=== PATIENT | female | born 1930 | race Two or more races ===

== ENCOUNTER 2016-09-23 18:28 | Inpatient (IN) | payer MEDICARE, BC ==
--- NOTE | 2016-09-23 18:57 | CT ---
PROCEDURE: CT HEAD WITHOUT CONTRAST. HISTORY: Code Stroke COMPARISON: None available. TECHNIQUE: Axial computed tomography images were obtained through the head/brain without intravenous contrast. Radiation dose: Total exam DLP = 791.90 mGy-cm. FINDINGS: HEMORRHAGE: No intracranial hemorrhage. BRAIN: Diffuse atrophy with prominence of the ventricles and sulci noted. No mass effect or edema. Intracranial atherosclerosis. Scattered periventricular and subcortical white matter hypodensities, which are nonspecific, but often seen with chronic microvascular ischemic disease. VENTRICLES: No hydrocephalus. CALVARIUM: No acute fracture. Osseous demineralization. PARANASAL SINUSES: Unremarkable as visualized. No significant inflammatory changes. MASTOID AIR CELLS: Unremarkable as visualized. No inflammatory changes. OTHER FINDINGS: None. IMPRESSION: Generalized atrophy. Nonspecific white matter changes. Please note that MRI with diffusion imaging is more sensitive in the detection of acute ischemic event. Findings discussed with JOHN Escalona on 09/23/16 at 6:52 p.m.
[2016-09-23 19:27] LABS: BASO % 0.4 % (0.0-2.0); HEMATOCRIT 49.1 % (34.0-47.0); LYMPH # 0.9 K/uL (1.0-4.3); LYMPH % 10.8 % (20.0-40.0); MEAN CORPUSCULAR HEMOGLOBIN 30.1 pg (27.0-31.0); MEAN PLATELET VOLUME 8.7 fL (7.2-11.7); MONO # 0.7 K/uL (0.0-0.8); MONO % 8.4 % (0.0-10.0); NRBC % 0.1 % (0.0-2.0); RED CELL DISTRIBUTION WIDTH 14.5 % (11.5-14.5); WHITE BLOOD COUNT 8.7 K/uL (4.8-10.8)
[2016-09-23 19:28] LABS: MEAN CELL VOLUME 91.1 fL (81.0-99.0)
[2016-09-23 19:34] LABS: POTASSIUM 3.7 mmol/L (3.6-5.2)
[2016-09-23 19:36] LABS: ALB/GLOB RATIO 1.1 (1.0-2.1); BILIRUBIN,TOTAL 0.3 mg/dL (0.2-1.3)
[2016-09-23 19:37] LABS: CALCIUM 8.2 mg/dl (8.6-10.4)
[2016-09-23 19:51] LABS: TROPONIN I 0.24 ng/mL (0.00-0.120)
[2016-09-23 20:25] LABS: ABG MECHANICAL RATE 14; ATERIAL BLOOD GAS PEEP 5; DRAW SITE RRA
[2016-09-23 20:28] LABS: BLOOD GAS HEMOGLOBIN 15.7 g/dL (11.7-17.4); CARBOXYHEMOGLOBIN 2.6 % (0.5-1.5); DRAW SITE RRA; HHB -0.1 % (0.0-5.0); METHEMOGLOBIN 1.4 % (0.0-3.0); VENOUS BLOOD GAS BASE EXCESS 0.1 mmol/L (0.0-2.0); VENOUS BLOOD GAS PCO2 74 mmHg (40-60); VENOUS BLOOD HGB O2 SAT 96.1 % (95.0-98.0); VENOUS BLOOD PH 7.22 (7.32-7.43)
[2016-09-23] MEDS ORDERED: Succinylcholine Chloride 20 mg/ml Syr (5 ml) IV STA (20:29)
[2016-09-23] MEDS ORDERED: Sodium Chloride 0.9% 1,000 ML IV ONE (20:44)
[2016-09-23] MEDS ORDERED: Sodium Chloride 0.9% 1,000 ML ONE ×2 (20:45→22:09)
--- NOTE | 2016-09-23 21:34 | C.PDOC ---
Time Seen by Provider: 09/23/16 18:36 Chief Complaint (Nursing): Altered Mental Status History Per: EMS History/Exam Limitations: Clinical Condition Onset/Duration Of Symptoms: Unknown (today) Onset Of Symptoms: Cannot Confirm Onset Current Symptoms Are (Timing): Worse Usual Baseline: Alert Oriented Exacerbating Factor(s): Unknown Use Of Anticoag/Antiplatelets: Unknown Severity: Severe Additional History Per: Prior Records Associated Symptoms: Confused, Falling (?), Unable To: (talk) Past Medical History Reviewed: Historical Data, Nursing Documentation, Vital Signs Vital Signs: Last Vital Signs Temp 100.2 F H 09/23/16 20:05 Pulse 95 H 09/23/16 20:42 Resp 14 09/23/16 20:42 BP 91/52 L 09/23/16 20:42 Pulse Ox 100 09/23/16 20:42 - Medical History PMH: COPD, HTN, Hypothyroidism Family History: States: Unknown Family Hx - Social History Hx Tobacco Use: Yes Hx Alcohol Use: No (UNOBTAINABLE) Hx Substance Use: No (UNOBTAINABLE) Review Of Systems Review Of Systems: ROS cannot be obtained secondary to pt's inabilty to answer questions. Physical Exam - Physical Exam Appears: Toxic, In Acute Distress Skin: Normal Color, Warm, Dry Head: Atraumatic Eye(s): bilateral: PERRL Neck: Normal ROM, Supple Cardiovascular: Rhythm Regular Respiratory: No Accessory Muscle Use, Other (poor respiratory effort) Gastrointestinal/Abdominal: Soft Extremity: Normal ROM Neurological/Psych: No Response To Commands, Inappropriate Response To Command, Other (Moving all extremities) Pain Response: Withdraws With Pain ED Course And Treatment - Laboratory Results Result Diagrams: 09/23/16 19:22 09/23/16 19:22 Lab Interpretation: Abnormal Interpretation Of Abnormal: Hypercarbia ECG: Interpreted By Me, Viewed By Me ECG Rhythm: Sinus Tachycardia, Nonspecific Changes ECG Interpretation: Abnormal Interpretation Of ECG: PACs O2 Sat by Pulse Oximetry: 100 Pulse Ox Interpretation: Normal - Radiology CXR: Interpreted by Me, Viewed By Me CXR Interpretation: Yes: Other (rotated. ETT in place.) Progress Note: Pt improved and started waking up after intubation, so sedation was started. [facility] came to visit in the ED and case was d/w them. - Physician Consult Information Physician Contacted: Germain Quick (ICU) Outcome Of Conversation: He accepted pt to ICU. Endotracheal Intubation - Endotracheal Intubation Intubated With ETT Size: 7 Blade Type Used: Curved Indication: Respiratory Failure Intubated: Orally Pre-Intubation Airway Assessment: Ventilated And Oxygenated Paralyzed With: Succinylcholine Post-Intubation Assessment: ETT Secured AT (cm): (20), Breath Sounds Equal Bilat , Placement Confirmed Via CXR, Color Change W/End Tidal CO2 Detector, Oxygen Saturation: (100) Progress - Interventions Interventions:: Observation, Intravenous fluid, Oxygen - Data Reviewed Data Reviewed: Lab, Diagnostic imaging, EKG, Old records - Patient Status Patient status: Critical - Critical Care Citical Care: Excluding Proc Time Critical Care Time: 60 minutes - Continuity of Care Discussed patient case with:: Family-HIPPA compliant, On-call PMD-pt unassigned Discussed pt. case with senior staff consultant/specialty: Pulmonary/Crit. Care - Patient Plan Patient Plan: Admission, ICU Disposition Discussed With : Fred Thomas Comment: He accepted pt on his service. Doctor Will See Patient In The: Hospital Counseled Patient/Family Regarding: Studies Performed, Diagnosis - Disposition Disposition: HOSPITALIZED Disposition Time: 21:00 Condition: CRITICAL - Clinical Impression Clinical Impression: Respiratory failure, CO2 narcosis
[2016-09-23 21:55] LABS: RBC URINE 7 /hpf (0-3); URINE BACTERIA RARE (<OCC); URINE BILIRUBIN NEGATIVE (NEGATIVE); URINE BLOOD 3+ (NEGATIVE); URINE COLOR Yellow (YELLOW); URINE GLUCOSE (UA) NORMAL (Normal); URINE KETONE NEGATIVE (NEGATIVE); URINE LEUKOCYTE ESTERASE NEG Leu/uL (Negative); URINE PROTEIN 3+ mg/dL (NEGATIVE); URINE UROBILINOGEN NORMAL mg/dL (0.2-1.0); WBC URINE 7 /hpf (0-5)
[2016-09-23] MEDS ORDERED: Sodium Chloride 0.9% 1,000 ML IV SCH (22:00)
--- NOTE | 2016-09-23 22:07 | CP.PCM.CON ---
History of Present Illness - History of Present Illness History of Present Illness: 86yo F. PMHx Smoker, most likely with COPD. p/w AMS secondary to hypercarbia. Intubated in ED with rapid resolution of mental status. Sedated for control while on vent. Review of Systems - Review of Systems Systems not reviewed;Unavailable: Intubated Past Patient History - Past Social History Smoking Status: Unknown If Ever Smoked - CARDIAC Hx Hypertension: Yes - PULMONARY Hx Chronic Obstructive Pulmonary Disease (COPD): Yes - ENDOCRINE/METABOLIC Hx Hypothyroidism: Yes - PSYCHIATRIC Hx Substance Use: No (UNOBTAINABLE) - SURGICAL HISTORY Hx Surgeries: No (UNOBTAINABLE) Meds Allergies/Adverse Reactions: Allergies Allergy/AdvReac Type Severity Reaction Status Date / Time Unobtainable Allergy Verified 09/23/16 18:38 - Medications Medications: Current Medications Albuterol/Ipratropium (Duoneb 3 Mg/0.5 Mg (3 Ml) Ud) 3 ml INH RQ4 [facility] Enoxaparin Sodium (Lovenox) 40 mg SC DAILY [facility] Propofol (Diprivan) 100 mls @ 1.973 mls/hr IV .Q24H PRN; Protocol; 5 MCG/KG/MIN PRN Reason: TITRATE PER MD ORDER Last Titration: 09/23/16 20:49 Dose: 5 mcg/kg/min Sodium Chloride (Sodium Chloride 0.9%) 1,000 mls @ 100 mls/hr IV .Q10H [facility] Ceftriaxone Sodium 2 gm/ (Sodium Chloride) 100 mls @ 100 mls/hr IVPB DAILY [facility] Azithromycin 500 mg/ Sodium (Chloride) 250 mls @ 250 mls/hr IVPB Q24H [facility] Methylprednisolone (Solu-Medrol) 40 mg IV Q8 [facility] Rosuvastatin Calcium (Crestor) 10 mg PO HS [facility] Physical Exam - Head Exam Head Exam: ATRAUMATIC, NORMAL INSPECTION, NORMOCEPHALIC - Eye Exam Eye Exam: EOMI, Normal appearance, PERRL - ENT Exam ENT Exam: Mucous Membranes Moist, Normal Exam - Respiratory Exam Respiratory Exam: Clear to Auscultation Bilateral, NORMAL BREATHING PATTERN - Cardiovascular Exam Cardiovascular Exam: REGULAR RHYTHM - GI/Abdominal Exam GI & Abdominal Exam: Normal Bowel Sounds, Soft. absent: Tenderness - Neurological Exam Additional comments: sedated Results - Vital Signs Recent Vital Signs: Last Vital Signs Temp 100.2 F H 09/23/16 20:05 Pulse 95 H 09/23/16 20:42 Resp 14 09/23/16 20:42 BP 91/52 L 09/23/16 20:42 Pulse Ox 100 09/23/16 21:38 - Labs Result Diagrams: 09/23/16 19:22 09/23/16 19:22 Labs: Laboratory Results - last 24 hr 09/23/16 09/23/16 09/23/16 18:32 19:22 19:25 WBC 8.7 RBC 5.39 H Hgb 16.2 H Hct 49.1 H MCV 91.1 D MCH 30.1 MCHC 33.0 RDW 14.5 Plt Count 224 MPV 8.7 Neut % (Auto) 80.4 H Lymph % (Auto) 10.8 L [place] % (Auto) 8.4 Eos % (Auto) 0.0 Baso % (Auto) 0.4 Neut # 7.0 Lymph # 0.9 L [place] # 0.7 Eos # 0.0 Baso # 0.0 PT 11.2 INR 1.0 APTT 35 H Puncture Site pCO2 pO2 HCO3 ABG pH ABG Total CO2 ABG O2 Saturation ABG Base Excess ABG Carboxyhemoglobin POC ABG HHb (Measured) ABG Methemoglobin Fish Test ABG Potassium VBG pH VBG pCO2 VBG HCO3 VBG O2 Sat (Calc) VBG Base Excess VBG Hgb O2 Saturation A-a O2 Difference Respiratory Index Hemoglobin Glucose Lactate Mechanical Rate FiO2 Tidal Volume PEEP Crit Value Called To Crit Value Called By Crit Value Read Back Blood Gas Notified Time Sodium 140 Potassium 3.7 Chloride 91 L Carbon Dioxide 36 H Anion Gap 17 BUN 22 H Creatinine 1.2 Est GFR ( Amer) 52 Est GFR (Non-Af Amer) 43 POC Glucose (mg/dL) 100 Random Glucose 134 H Hemoglobin A1c 5.9 Calcium 8.2 L Total Bilirubin 0.3 AST 112 H D ALT 49 Alkaline Phosphatase 71 Troponin I 0.2400 H* Total Protein 8.0 Albumin 4.3 Globulin 3.8 Albumin/Globulin Ratio 1.1 Triglycerides 113 Cholesterol 189 LDL Cholesterol Direct 92 HDL Cholesterol 56 Arterial Blood Potassium Urine Color Urine Clarity Urine pH Ur Specific [place] Urine Protein Urine Glucose (UA) Urine Ketones Urine Blood Urine Nitrate Urine Bilirubin Urine Urobilinogen Ur Leukocyte Esterase Urine WBC (Auto) Urine RBC (Auto) Ur Squamous Epith Cells Urine Bacteria Blood Type O POSITIVE Antibody Screen Negative 09/23/16 09/23/16 20:20 21:31 WBC RBC Hgb Hct MCV MCH MCHC RDW Plt Count MPV Neut % (Auto) Lymph % (Auto) [place] % (Auto) Eos % (Auto) Baso % (Auto) Neut # Lymph # [place] # Eos # Baso # PT INR APTT Puncture Site Rra pCO2 80 H* pO2 345 H HCO3 26.9 ABG pH 7.22 L ABG Total CO2 35.2 H ABG O2 Saturation 100.4 H ABG Base Excess 2.4 ABG Carboxyhemoglobin 2.6 H POC ABG HHb (Measured) -0.1 L ABG Methemoglobin 1.4 Fish Test Na ABG Potassium 3.7 VBG pH 7.22 L VBG pCO2 74 H* VBG HCO3 25.0 VBG O2 Sat (Calc) 100.1 H VBG Base Excess 0.1 VBG Hgb O2 Saturation 96.1 A-a O2 Difference 236.0 Respiratory Index 0.6 Hemoglobin 15.7 Glucose 152 H Lactate 0.8 Mechanical Rate 14 FiO2 100.0 Tidal Volume 450 PEEP 5 Crit Value Called To Seema bolden Crit Value Called By Sang Crit Value Read Back Y Blood Gas Notified Time 2027 Sodium 138.0 Potassium Chloride 105.0 Carbon Dioxide Anion Gap BUN Creatinine Est GFR ( Amer) Est GFR (Non-Af Amer) POC Glucose (mg/dL) Random Glucose Hemoglobin A1c Calcium Total Bilirubin AST ALT Alkaline Phosphatase Troponin I Total Protein Albumin Globulin Albumin/Globulin Ratio Triglycerides Cholesterol LDL Cholesterol Direct HDL Cholesterol Arterial Blood Potassium 3.7 Urine Color Yellow Urine Clarity Hazy Urine pH 5.0 Ur Specific [place] 1.016 Urine Protein 3+ H Urine Glucose (UA) Normal Urine Ketones Negative Urine Blood 3+ H Urine Nitrate Negative Urine Bilirubin Negative Urine Urobilinogen Normal Ur Leukocyte Esterase Neg Urine WBC (Auto) 7 H Urine RBC (Auto) 7 H Ur Squamous Epith Cells < 1 Urine Bacteria Rare Blood Type Antibody Screen - Imaging and Cardiology Chest x-ray Status: Image reviewed by me Assessment & Plan (1) Respiratory failure Assessment and Plan: 86yo F. PMHx Smoker, most likely with COPD. p/w AMS secondary to hypercarbia. Intubated in ED (09/23). Neuro: Sedated on vent, propofol drip. Patient had metabolic encephalopathy from hypercarbia. Pulm: Acute respiratory failure with hypercarbia, secondary to acute exacerbation of chronic obstructive pulmonary disease. Currently on vent, PRVC. Starting Solu-Medrol IV, DuoNeb's every 4 hours, empiric antibiotics. CV: Hemodynamically stable Hem: Elevated H&H, possible polycythemia from chronic hypoxia, or dehydration. Renal: No acute issues, urine output within normal limits, will monitor. Endo: No acute issues GI: Nothing by mouth, will start tube feeds as patient is on vent for greater than 24 hours ID: No definitive source of infection, empiric coverage with ceftriaxone and azithromycin. Will stop if no further evidence of sepsis. DVT proph - Lovenox GI proph - we'll start if patient is on vent for greater than 48 hours. perez for strict I/O's during acute illness Code status - full code Crtical Care Time spent 35 minutes The documented time is cumulative and includes review of patient data/exams/labs /chart review and examination of the patient on rounds and throughout the day; time is exclusive of any procedures or teaching time. Status: Acute Priority: High
[2016-09-23] MEDS ORDERED: Azithromycin 500mg/250ML NS 250 ML IVPB ONE (22:09)
[2016-09-23] MEDS: Azithromycin 500 MG in Sodium Chloride 0.9% 250 ML IVPB SCH (22:17)
[2016-09-23] MEDS: Albuterol-Ipratrop 3 mg / 0.5 (3 ml) UD INH SCH (22:20)
[2016-09-23] MEDS ORDERED: cefTRIAXone IV 1 gm in Dextros 0 ML IVPB ONE (23:01)
[2016-09-24] MEDS: cefTRIAXone 2 GM in Sodium Chloride 0.9% 100 ML IVPB SCH ×2 (00:06→23:34)
[2016-09-24] MEDS: Albuterol-Ipratrop 3 mg / 0.5 (3 ml) UD INH SCH ×7 (01:13→23:57)
[2016-09-24] MEDS: MethylPREDNISolone 40 mg Vial IV SCH ×3 (05:21→21:59)
[2016-09-24 05:39] LABS: ABG MECHANICAL RATE 14; ARTERIAL BLOOD HGB O2 SAT 96.8 % (95.0-98.0); ATERIAL BLOOD GAS PEEP 5; CARBOXYHEMOGLOBIN 1.4 % (0.5-1.5); DRAW SITE RB; HHB 0.3 % (0.0-5.0); METHEMOGLOBIN 1.5 % (0.0-3.0)
[2016-09-24 06:17] LABS: BASO % 0.5 % (0.0-2.0); HEMATOCRIT 41.9 % (34.0-47.0); LYMPH # 0.8 K/uL (1.0-4.3); MEAN CELL VOLUME 91.5 fL (81.0-99.0); MEAN CORPUSCULAR HGB CONC 33.9 g/dL (33.0-37.0); MEAN PLATELET VOLUME 9.2 fL (7.2-11.7); MONO # 0.2 K/uL (0.0-0.8); MONO % 3.1 % (0.0-10.0); NRBC % 0.1 % (0.0-2.0); RED CELL DISTRIBUTION WIDTH 14.7 % (11.5-14.5); WHITE BLOOD COUNT 6.8 K/uL (4.8-10.8)
[2016-09-24 06:30] LABS: POTASSIUM 3.4 mmol/L (3.6-5.2)
[2016-09-24 06:33] LABS: ALB/GLOB RATIO 1.2 (1.0-2.1); BILIRUBIN,TOTAL 0.3 mg/dL (0.2-1.3); TOTAL PROTEIN 6.5 g/dL (6.3-8.3)
[2016-09-24 06:34] LABS: CALCIUM 7.4 mg/dl (8.6-10.4); MAGNESIUM 1.7 mg/dL (1.6-2.3); PHOSPHOROUS 4.4 mg/dL (2.5-4.5)
[2016-09-24] MEDS: Sucralfate 1 gm/10 ml Oral Susp UD PO SCH (09:45)
--- NOTE | 2016-09-24 09:57 | RAD ---
HISTORY: Code stroke COMPARISON: No prior. FINDINGS: LUNGS: Biapical pleural thickening with upper lobe granulomatous changes. Some airspace opacification at the right lung apex and right hilar region. Scattered nodularity in both lungs most predominant at the lung bases. Increased markings at the lung bases which may represent some patchy atelectasis. PLEURA: As above. CARDIOVASCULAR: Tortuous ectatic aorta. Right peritracheal vascular prominence. OSSEOUS STRUCTURES: Degenerative changes in the spine and shoulders with calcific tendinopathy of the left proximal humerus. VISUALIZED UPPER ABDOMEN: Normal. OTHER FINDINGS: None. IMPRESSION: Biapical pleural thickening with upper lobe granulomatous changes. Some airspace opacification at the right lung apex and right hilar region. Scattered nodularity in both lungs most predominant at the lung bases. Increased markings at the lung bases which may represent some patchy atelectasis.
[2016-09-24] MEDS ORDERED: Enoxaparin 30 mg Syringe SC SCH (10:00)
--- NOTE | 2016-09-24 10:25 | RAD ---
HISTORY: Post intubation COMPARISON: 09/23/2016 FINDINGS: LUNGS: Probable Mach artifact with linear lucency in the left mid susie thorax. Mild venous congestion. Elevated right hemidiaphragm. Right hilar prominence. Endotracheal tube extending into the mid thoracic trachea. NG tube extending into the stomach. PLEURA: No significant pleural effusion identified, no pneumothorax apparent. CARDIOVASCULAR: Tortuous aorta. OSSEOUS STRUCTURES: No significant abnormalities. VISUALIZED UPPER ABDOMEN: Normal. OTHER FINDINGS: None. IMPRESSION: Probable Mach artifact with linear lucency in the left mid susie thorax. Mild venous congestion. Elevated right hemidiaphragm. Right hilar prominence. Endotracheal tube extending into the mid thoracic trachea. NG tube extending into the stomach.
--- NOTE | 2016-09-24 10:34 | RAD ---
HISTORY: follow up COMPARISON: 09/23/2016 FINDINGS: LUNGS: Biapical pleural thickening with upper lobe granulomatous changes. Mild venous congestion. PLEURA: No significant pleural effusion identified, no pneumothorax apparent. CARDIOVASCULAR: Tortuous ectatic aorta. Calcification at the aortic knob. OSSEOUS STRUCTURES: No significant abnormalities. VISUALIZED UPPER ABDOMEN: Normal. OTHER FINDINGS: Endotracheal tube extending into the mid thoracic trachea. NG tube extending into the stomach. Tubing projecting over the medial right susie thorax may represent external tubing. IMPRESSION: Mild venous congestion.
--- NOTE | 2016-09-24 13:44 | CP.CCUPN ---
<Fabian Levy - Last Filed: 09/24/16 13:39> CCU Subjective - Physician Review Subjective (Free Text): 09/24/16 13:39 Patient was seen and examined at bedside. No acute distress on ventilator. No acute events overnight. Nursing staff reports no issues. Patient is resting comfortably on the bed, maintained on a propofol drip 10mcg/kg/min. Patient is lethargic but awakens to voice, follows command. Denies any pain or complaints aside from the ventilator. Hypercarbia has improved on todays ABG. Critical Care Time Spent (in minutes): 60 CCU Objective - Vital Signs / Intake & Output Vital Signs (Last 4 hours): Vital Signs Temp Pulse Resp BP Pulse Ox 09/24/16 13:05 81 19 134/70 98 09/24/16 13:00 79 14 97 09/24/16 12:05 72 14 156/83 H 96 09/24/16 12:04 78 14 98 09/24/16 12:00 98.4 F 76 14 99 09/24/16 11:35 75 14 98 09/24/16 11:04 80 14 137/65 95 09/24/16 11:00 80 14 96 09/24/16 10:30 83 14 95 09/24/16 10:04 80 14 132/65 09/24/16 10:00 78 14 96 Intake and Output (Last 8hrs): Intake & Output 09/23/16 09/24/16 09/24/16 22:59 06:59 14:59 Intake Total 776.2 727.3 Output Total 705 160 Balance 71.2 567.3 Weight 65.2 kg Intake: Intake, IV Amount 776.2 727.3 Right Forearm 750 700 Left Forearm 26.2 27.3 Output: Gastric Amount 100 Stomach 100 Urine 605 160 Urethral (Antony) 605 160 Stool 0 0 Other: Voiding Method Indwelling Catheter # Bowel Movements 0 0 - Physical Exam Physical Exam Limitations: Positive for: Other (Intubated) Head: Positive for: Atraumatic, Normocephalic, Other (ET Tube in place) Pupils: Positive for: PERRL Mouth: Positive for: Dry Respiratory/Chest: Positive for: Clear to Auscultation, Good Air Exchange. Negative for: Respiratory Distress Cardiovascular: Positive for: Regular Rate and Rhythm, Normal S1, S2. Negative for: Murmurs Abdomen: Positive for: Normal Bowel Sounds. Negative for: Tenderness, Distention Upper Extremity: Positive for: Normal Inspection. Negative for: Cyanosis, Edema Lower Extremity: Positive for: Normal Inspection. Negative for: Edema, CALF TENDERNESS Skin: Positive for: Warm, Dry - Medications Active Medications: Active Medications Generic Name Dose Route Start Last Admin Trade Name Freq PRN Reason Stop Dose Admin Albuterol/Ipratropium 3 ml 09/23/16 22:00 09/24/16 11:06 Duoneb 3 Mg/0.5 Mg (3 Ml) Ud INH 3 ml RQ4 KAILA Administration Enoxaparin Sodium 30 mg 09/24/16 10:00 09/24/16 09:45 Lovenox SC 30 mg DAILY KAILA Administration Propofol 100 mls @ 1.973 mls/hr 09/23/16 19:55 09/24/16 13:30 Diprivan IV 5 mcg/kg/min .Q24H PRN Titration TITRATE PER MD ORDER Protocol 5 MCG/KG/MIN Ceftriaxone Sodium 2 gm/ 100 mls @ 100 mls/hr 09/23/16 23:30 09/24/16 00:06 Sodium Chloride IVPB 100 mls/hr Q24H KAILA Administration Azithromycin 500 mg/ Sodium 250 mls @ 250 mls/hr 09/23/16 22:15 09/23/16 22:17 Chloride IVPB 250 mls/hr Q24H KAILA Administration Potassium Chloride 40 meq/ 1,020 mls @ 100 mls/hr 09/24/16 08:30 09/24/16 08:39 Sodium Chloride IV 09/24/16 18:41 100 mls/hr .[id number] ONE Administration Methylprednisolone 40 mg 09/24/16 06:00 09/24/16 05:21 Solu-Medrol IV 40 mg Q8 KAILA Administration Rosuvastatin Calcium 10 mg 09/23/16 22:00 09/23/16 22:18 Crestor PO Not Given HS KAILA Sucralfate 1 gm 09/24/16 10:00 09/24/16 09:45 Carafate Oral Susp PO 1 gm DAILY KAILA Administration - Patient Studies Lab Studies: Lab Studies 09/24/16 09/24/16 09/24/16 Range/Units 11:45 06:07 05:38 WBC 6.8 (4.8-10.8) K/uL RBC 4.58 (3.80-5.20) Mil/uL Hgb 14.2 D (11.0-16.0) g/dL Hct 41.9 (34.0-47.0) % MCV 91.5 (81.0-99.0) fL MCH 31.0 (27.0-31.0) pg MCHC 33.9 (33.0-37.0) g/dL RDW 14.7 H (11.5-14.5) % Plt Count 190 (130-400) K/uL MPV 9.2 (7.2-11.7) fL Neut % (Auto) 84.4 H (50.0-75.0) % Lymph % (Auto) 12.0 L (20.0-40.0) % Woodson % (Auto) 3.1 (0.0-10.0) % Eos % (Auto) 0.0 (0.0-4.0) % Baso % (Auto) 0.5 (0.0-2.0) % Neut # 5.7 (1.8-7.0) K/uL Lymph # 0.8 L (1.0-4.3) K/uL Woodson # 0.2 (0.0-0.8) K/uL Eos # 0.0 (0.0-0.7) K/uL Baso # 0.0 (0.0-0.2) K/uL Puncture Site pCO2 (35-45) mm/Hg pO2 (80-100) mm/Hg HCO3 (21-28) mmol/L ABG pH (7.35-7.45) ABG Total CO2 (22-28) mmol/L ABG O2 Saturation (95-98) % ABG Base Excess (-2.0-3.0) mmol/L ABG Hemoglobin (11.7-17.4) g/dL ABG Carboxyhemoglobin (0.5-1.5) % POC ABG HHb (Measured) (0.0-5.0) % ABG Methemoglobin (0.0-3.0) % Fish Test A-a O2 Difference mm/Hg Respiratory Index Hgb O2 Saturation (95.0-98.0) % Mechanical Rate FiO2 % Tidal Volume PEEP Sodium 142 (132-148) mmol/L Potassium 3.4 L (3.6-5.2) mmol/L Chloride 97 L (98-107) mmol/L Carbon Dioxide 28 (22-30) mmol/L Anion Gap 20 (10-20) BUN 29 H (7-17) mg/dL Creatinine 1.2 (0.7-1.2) MG/DL Est GFR ( Amer) 52 Est GFR (Non-Af Amer) 43 POC Glucose (mg/dL) 140 H 109 (65-110) mg/dL Random Glucose 129 H (65-105) mg/dL Calcium 7.4 L (8.6-10.4) mg/dl Phosphorus 4.4 (2.5-4.5) mg/dL Magnesium 1.7 (1.6-2.3) mg/dL Total Bilirubin 0.3 (0.2-1.3) mg/dL AST 90 H (14-36) U/L ALT 39 (9-52) U/L Alkaline Phosphatase 50 (38-126) U/L Total Creatine Kinase (30-135) U/L CK-MB (Mass) (0.0-3.38) ng/mL Troponin I, Quant (0.00-0.120) ng/mL Total Protein 6.5 (6.3-8.3) g/dL Albumin 3.5 (3.5-5.0) g/dL Globulin 3.0 (2.2-3.9) gm/dL Albumin/Globulin Ratio 1.2 (1.0-2.1) 09/24/16 09/24/16 09/23/16 Range/Units 05:11 01:11 22:14 WBC (4.8-10.8) K/uL RBC (3.80-5.20) Mil/uL Hgb (11.0-16.0) g/dL Hct (34.0-47.0) % MCV (81.0-99.0) fL MCH (27.0-31.0) pg MCHC (33.0-37.0) g/dL RDW (11.5-14.5) % Plt Count (130-400) K/uL MPV (7.2-11.7) fL Neut % (Auto) (50.0-75.0) % Lymph % (Auto) (20.0-40.0) % Woodson % (Auto) (0.0-10.0) % Eos % (Auto) (0.0-4.0) % Baso % (Auto) (0.0-2.0) % Neut # (1.8-7.0) K/uL Lymph # (1.0-4.3) K/uL Woodson # (0.0-0.8) K/uL Eos # (0.0-0.7) K/uL Baso # (0.0-0.2) K/uL Puncture Site Rb pCO2 54 H (35-45) mm/Hg pO2 352 H (80-100) mm/Hg HCO3 25.4 (21-28) mmol/L ABG pH 7.32 L (7.35-7.45) ABG Total CO2 29.5 H (22-28) mmol/L ABG O2 Saturation 99.7 H (95-98) % ABG Base Excess 0.6 (-2.0-3.0) mmol/L ABG Hemoglobin 14.5 (11.7-17.4) g/dL ABG Carboxyhemoglobin 1.4 (0.5-1.5) % POC ABG HHb (Measured) 0.3 (0.0-5.0) % ABG Methemoglobin 1.5 (0.0-3.0) % Fish Test Na A-a O2 Difference 151.0 mm/Hg Respiratory Index 0.4 Hgb O2 Saturation 96.8 (95.0-98.0) % Mechanical Rate 14 FiO2 80.0 % Tidal Volume 450 PEEP 5 Sodium (132-148) mmol/L Potassium (3.6-5.2) mmol/L Chloride (98-107) mmol/L Carbon Dioxide (22-30) mmol/L Anion Gap (10-20) BUN (7-17) mg/dL Creatinine (0.7-1.2) MG/DL Est GFR ( Amer) Est GFR (Non-Af Amer) POC Glucose (mg/dL) 111 H (65-110) mg/dL Random Glucose (65-105) mg/dL Calcium (8.6-10.4) mg/dl Phosphorus (2.5-4.5) mg/dL Magnesium (1.6-2.3) mg/dL Total Bilirubin (0.2-1.3) mg/dL AST (14-36) U/L ALT (9-52) U/L Alkaline Phosphatase (38-126) U/L Total Creatine Kinase 3005 H (30-135) U/L CK-MB (Mass) 17.3 H (0.0-3.38) ng/mL Troponin I, Quant 0.2480 H* (0.00-0.120) ng/mL Total Protein (6.3-8.3) g/dL Albumin (3.5-5.0) g/dL Globulin (2.2-3.9) gm/dL Albumin/Globulin Ratio (1.0-2.1) Laboratory Results - last 24 hr 09/23/16 09/24/16 09/24/16 22:14 01:11 05:11 WBC RBC Hgb Hct MCV MCH MCHC RDW Plt Count MPV Neut % (Auto) Lymph % (Auto) Woodson % (Auto) Eos % (Auto) Baso % (Auto) Neut # Lymph # Woodson # Eos # Baso # Puncture Site Rb pCO2 54 H pO2 352 H HCO3 25.4 ABG pH 7.32 L ABG Total CO2 29.5 H ABG O2 Saturation 99.7 H ABG Base Excess 0.6 ABG Hemoglobin 14.5 ABG Carboxyhemoglobin 1.4 POC ABG HHb (Measured) 0.3 ABG Methemoglobin 1.5 Fish Test Na A-a O2 Difference 151.0 Respiratory Index 0.4 Hgb O2 Saturation 96.8 Mechanical Rate 14 FiO2 80.0 Tidal Volume 450 PEEP 5 Sodium Potassium Chloride Carbon Dioxide Anion Gap BUN Creatinine Est GFR ( Amer) Est GFR (Non-Af Amer) POC Glucose (mg/dL) 111 H Random Glucose Calcium Phosphorus Magnesium Total Bilirubin AST ALT Alkaline Phosphatase Total Creatine Kinase 3005 H CK-MB (Mass) 17.3 H Troponin I, Quant 0.2480 H* Total Protein Albumin Globulin Albumin/Globulin Ratio 09/24/16 09/24/16 09/24/16 05:38 06:07 11:45 WBC 6.8 RBC 4.58 Hgb 14.2 D Hct 41.9 MCV 91.5 MCH 31.0 MCHC 33.9 RDW 14.7 H Plt Count 190 MPV 9.2 Neut % (Auto) 84.4 H Lymph % (Auto) 12.0 L Woodson % (Auto) 3.1 Eos % (Auto) 0.0 Baso % (Auto) 0.5 Neut # 5.7 Lymph # 0.8 L Woodson # 0.2 Eos # 0.0 Baso # 0.0 Puncture Site pCO2 pO2 HCO3 ABG pH ABG Total CO2 ABG O2 Saturation ABG Base Excess ABG Hemoglobin ABG Carboxyhemoglobin POC ABG HHb (Measured) ABG Methemoglobin Fish Test A-a O2 Difference Respiratory Index Hgb O2 Saturation Mechanical Rate FiO2 Tidal Volume PEEP Sodium 142 Potassium 3.4 L Chloride 97 L Carbon Dioxide 28 Anion Gap 20 BUN 29 H Creatinine 1.2 Est GFR ( Amer) 52 Est GFR (Non-Af Amer) 43 POC Glucose (mg/dL) 109 140 H Random Glucose 129 H Calcium 7.4 L Phosphorus 4.4 Magnesium 1.7 Total Bilirubin 0.3 AST 90 H ALT 39 Alkaline Phosphatase 50 Total Creatine Kinase CK-MB (Mass) Troponin I, Quant Total Protein 6.5 Albumin 3.5 Globulin 3.0 Albumin/Globulin Ratio 1.2 Fingerstick Blood Sugar Results: 140 Review of Systems - Review of Systems Systems not reviewed;Unavailable: Intubated Critical Care Progress Note - Ventilator Checklist Head of Bed 30 Degrees: Yes - Vent Settings MODE:: PRVC RESP RATE:: 16 FIO2:: 50 PEEP:: 5 - Prophylaxis GI Prophylaxis GI: Not Indicated - Prophylaxis DVT Prophylaxis DVT: Lovenox Assessment/Plan - Assessment and Plan (Free Text) Assessment: This is an 86 y/o female with a suspected PMH of smoking, COPD, and HTN presenting with respiratory failure and hypercarbic encephalopathy. Plan: Neuro: Patient awakens to voice and responds to command. Propofol 10 mcg/kg/min Denies pain or discomfort 09/23/16 CT Head- Generalized atrophy. Nonspecific white matter changes. Cardiovascular: Regular rate and rhythm Troponin- 0.2400 > 0.2480 > 0.2490 09/24/16 ECHO- official read pending 09/23/16 EKG- sinus tachycardia [facility] PACs, low voltage QRS, possible anteroseptal infarct age undetermined- official read pending Suspect elevated troponin due to demand ischemia Rouvastatin 10mg po hs IVF- NS @ 100ml/hr Pulmonary: Solumedrol 40mg IV q8 Duoneb q4 09/24/16 CXR- mild venous congestion 09/23/16 CXR- Probable Mach artifact with linear lucency in the left mid susie thorax. Mild venous congestion. Elevated right hemidiaphragm. Right hilar prominence. Endotracheal tube extending into the mid thoracic trachea. NG tube extending into the stomach. 09/23/16 CXR- Biapical pleural thickening with upper lobe granulomatous changes. Some airspace opacification at the right lung apex and right hilar region. Scattered nodularity in both lungs most predominant at the lung bases. Increased markings at the lung bases which may represent some patchy atelectasis. Ventilator settings: PRVC 16/1L/50/5 AB09/24/16 pH 7.32, CO2 54, O2 352, HCO3 25.4 09/23/16 O2 345 09/23/16 pH 7.22, CO2 80, O2 377, HCO3 26.9 GI: Carafate 1g po daily Hematology: No leukocytosis Hgb/Hct stable Endocrine: maintain euglycemia HbA1c- 5.9 CK- 3005 IVF- NS @ 100ml/hr Renal: BUN/Cr: 29/1.2 Hypokalemia - replaced with 40meq in NS 1L Hypomagnesemia - 1g replaced this AM Replete with KCL 40 mEq IV IVF- NS @ 100ml/hr ID: No leukocytosis U/A negative Day 2 Rocephin 2g IV daily- start 09/23/16 Day 1 Azithromycin 500mg IV daily- start 09/24/16 : None MSK: None GI Prophylaxis- Carafate 1g po daily DVT Prophylaxis- Lovenox 30 mg SC Tommie Colungandi PGY1 [id number] - Date & Time Date: 09/24/16 Time: 13:50 <Kendrick Yo - Last Filed: 09/24/16 18:15> CCU Objective - Vital Signs / Intake & Output Vital Signs (Last 4 hours): Vital Signs Temp Pulse Resp BP Pulse Ox 09/24/16 17:04 76 14 137/61 09/24/16 17:00 75 16 95 09/24/16 16:20 78 14 98 09/24/16 16:04 72 14 136/65 09/24/16 16:00 98.4 F 74 14 96 09/24/16 15:31 78 14 96 09/24/16 15:04 78 17 143/77 96 09/24/16 15:00 77 14 96 09/24/16 14:18 80 14 97 09/24/16 14:04 81 14 141/71 97 09/24/16 14:00 77 14 97 Intake and Output (Last 8hrs): Intake & Output 09/24/16 09/24/16 09/24/16 06:59 14:59 22:59 Intake Total 776.2 829.3 311.7 Output Total 705 180 70 Balance 71.2 649.3 241.7 Weight 143 lb 11.862 oz Intake: Intake, IV Amount 776.2 829.3 311.7 Right Forearm 750 800 300 Left Forearm 26.2 29.3 11.7 Output: Gastric Amount 100 Stomach 100 Urine 605 180 70 Urethral (Antony) 605 180 70 Stool 0 0 Other: Voiding Method Indwelling Catheter # Bowel Movements 0 0 0 - Medications Active Medications: Active Medications Generic Name Dose Route Start Last Admin Trade Name Freq PRN Reason Stop Dose Admin Albuterol/Ipratropium 3 ml 09/23/16 22:00 09/24/16 16:05 Duoneb 3 Mg/0.5 Mg (3 Ml) Ud INH 3 ml RQ4 KAILA Administration Enoxaparin Sodium 30 mg 09/24/16 10:00 09/24/16 09:45 Lovenox SC 30 mg DAILY KAILA Administration Propofol 100 mls @ 1.973 mls/hr 09/23/16 19:55 09/24/16 14:30 Diprivan IV 10 mcg/kg/min .Q24H PRN Titration TITRATE PER MD ORDER Protocol 5 MCG/KG/MIN Ceftriaxone Sodium 2 gm/ 100 mls @ 100 mls/hr 09/23/16 23:30 09/24/16 00:06 Sodium Chloride IVPB 100 mls/hr Q24H KAILA Administration Azithromycin 500 mg/ Sodium 250 mls @ 250 mls/hr 09/23/16 22:15 09/23/16 22:17 Chloride IVPB 250 mls/hr Q24H KAILA Administration Potassium Chloride 40 meq/ 1,020 mls @ 100 mls/hr 09/24/16 08:30 09/24/16 08:39 Sodium Chloride IV 09/24/16 18:41 100 mls/hr .[id number] ONE Administration Sodium Chloride 1,000 mls @ 100 mls/hr 09/24/16 14:15 09/24/16 15:35 Sodium Chloride 0.9% IV Not Given .Q10H KAILA Methylprednisolone 40 mg 09/24/16 06:00 09/24/16 13:42 Solu-Medrol IV 40 mg Q8 KAILA Administration Rosuvastatin Calcium 10 mg 09/23/16 22:00 09/23/16 22:18 Crestor PO Not Given HS KAILA Sucralfate 1 gm 09/24/16 10:00 09/24/16 09:45 Carafate Oral Susp PO 1 gm DAILY KAILA Administration - Patient Studies Lab Studies: Lab Studies 09/24/16 09/24/16 09/24/16 Range/Units 12:48 11:45 06:07 WBC 6.8 (4.8-10.8) K/uL RBC 4.58 (3.80-5.20) Mil/uL Hgb 14.2 D (11.0-16.0) g/dL Hct 41.9 (34.0-47.0) % MCV 91.5 (81.0-99.0) fL MCH 31.0 (27.0-31.0) pg MCHC 33.9 (33.0-37.0) g/dL RDW 14.7 H (11.5-14.5) % Plt Count 190 (130-400) K/uL MPV 9.2 (7.2-11.7) fL Neut % (Auto) 84.4 H (50.0-75.0) % Lymph % (Auto) 12.0 L (20.0-40.0) % Woodson % (Auto) 3.1 (0.0-10.0) % Eos % (Auto) 0.0 (0.0-4.0) % Baso % (Auto) 0.5 (0.0-2.0) % Neut # 5.7 (1.8-7.0) K/uL Lymph # 0.8 L (1.0-4.3) K/uL Woodson # 0.2 (0.0-0.8) K/uL Eos # 0.0 (0.0-0.7) K/uL Baso # 0.0 (0.0-0.2) K/uL Puncture Site pCO2 (35-45) mm/Hg pO2 (80-100) mm/Hg HCO3 (21-28) mmol/L ABG pH (7.35-7.45) ABG Total CO2 (22-28) mmol/L ABG O2 Saturation (95-98) % ABG Base Excess (-2.0-3.0) mmol/L ABG Hemoglobin (11.7-17.4) g/dL ABG Carboxyhemoglobin (0.5-1.5) % POC ABG HHb (Measured) (0.0-5.0) % ABG Methemoglobin (0.0-3.0) % Fish Test A-a O2 Difference mm/Hg Respiratory Index Hgb O2 Saturation (95.0-98.0) % Mechanical Rate FiO2 % Tidal Volume PEEP Sodium 142 (132-148) mmol/L Potassium 3.4 L (3.6-5.2) mmol/L Chloride 97 L (98-107) mmol/L Carbon Dioxide 28 (22-30) mmol/L Anion Gap 20 (10-20) BUN 29 H (7-17) mg/dL Creatinine 1.2 (0.7-1.2) MG/DL Est GFR ( Amer) 52 Est GFR (Non-Af Amer) 43 POC Glucose (mg/dL) 140 H (65-110) mg/dL Random Glucose 129 H (65-105) mg/dL Calcium 7.4 L (8.6-10.4) mg/dl Phosphorus 4.4 (2.5-4.5) mg/dL Magnesium 1.7 (1.6-2.3) mg/dL Total Bilirubin 0.3 (0.2-1.3) mg/dL AST 90 H (14-36) U/L ALT 39 (9-52) U/L Alkaline Phosphatase 50 (38-126) U/L Total Creatine Kinase 1408 H (30-135) U/L CK-MB (Mass) 6.51 H (0.0-3.38) ng/mL Troponin I, Quant 0.2490 H* (0.00-0.120) ng/mL Total Protein 6.5 (6.3-8.3) g/dL Albumin 3.5 (3.5-5.0) g/dL Globulin 3.0 (2.2-3.9) gm/dL Albumin/Globulin Ratio 1.2 (1.0-2.1) 09/24/16 09/24/16 09/24/16 Range/Units 05:38 05:11 01:11 WBC (4.8-10.8) K/uL RBC (3.80-5.20) Mil/uL Hgb (11.0-16.0) g/dL Hct (34.0-47.0) % MCV (81.0-99.0) fL MCH (27.0-31.0) pg MCHC (33.0-37.0) g/dL RDW (11.5-14.5) % Plt Count (130-400) K/uL MPV (7.2-11.7) fL Neut % (Auto) (50.0-75.0) % Lymph % (Auto) (20.0-40.0) % Woodson % (Auto) (0.0-10.0) % Eos % (Auto) (0.0-4.0) % Baso % (Auto) (0.0-2.0) % Neut # (1.8-7.0) K/uL Lymph # (1.0-4.3) K/uL Woodson # (0.0-0.8) K/uL Eos # (0.0-0.7) K/uL Baso # (0.0-0.2) K/uL Puncture Site Rb pCO2 54 H (35-45) mm/Hg pO2 352 H (80-100) mm/Hg HCO3 25.4 (21-28) mmol/L ABG pH 7.32 L (7.35-7.45) ABG Total CO2 29.5 H (22-28) mmol/L ABG O2 Saturation 99.7 H (95-98) % ABG Base Excess 0.6 (-2.0-3.0) mmol/L ABG Hemoglobin 14.5 (11.7-17.4) g/dL ABG Carboxyhemoglobin 1.4 (0.5-1.5) % POC ABG HHb (Measured) 0.3 (0.0-5.0) % ABG Methemoglobin 1.5 (0.0-3.0) % Fish Test Na A-a O2 Difference 151.0 mm/Hg Respiratory Index 0.4 Hgb O2 Saturation 96.8 (95.0-98.0) % Mechanical Rate 14 FiO2 80.0 % Tidal Volume 450 PEEP 5 Sodium (132-148) mmol/L Potassium (3.6-5.2) mmol/L Chloride (98-107) mmol/L Carbon Dioxide (22-30) mmol/L Anion Gap (10-20) BUN (7-17) mg/dL Creatinine (0.7-1.2) MG/DL Est GFR ( Amer) Est GFR (Non-Af Amer) POC Glucose (mg/dL) 109 111 H (65-110) mg/dL Random Glucose (65-105) mg/dL Calcium (8.6-10.4) mg/dl Phosphorus (2.5-4.5) mg/dL Magnesium (1.6-2.3) mg/dL Total Bilirubin (0.2-1.3) mg/dL AST (14-36) U/L ALT (9-52) U/L Alkaline Phosphatase (38-126) U/L Total Creatine Kinase (30-135) U/L CK-MB (Mass) (0.0-3.38) ng/mL Troponin I, Quant (0.00-0.120) ng/mL Total Protein (6.3-8.3) g/dL Albumin (3.5-5.0) g/dL Globulin (2.2-3.9) gm/dL Albumin/Globulin Ratio (1.0-2.1) 09/23/16 Range/Units 22:14 WBC (4.8-10.8) K/uL RBC (3.80-5.20) Mil/uL Hgb (11.0-16.0) g/dL Hct (34.0-47.0) % MCV (81.0-99.0) fL MCH (27.0-31.0) pg MCHC (33.0-37.0) g/dL RDW (11.5-14.5) % Plt Count (130-400) K/uL MPV (7.2-11.7) fL Neut % (Auto) (50.0-75.0) % Lymph % (Auto) (20.0-40.0) % Woodson % (Auto) (0.0-10.0) % Eos % (Auto) (0.0-4.0) % Baso % (Auto) (0.0-2.0) % Neut # (1.8-7.0) K/uL Lymph # (1.0-4.3) K/uL Woodson # (0.0-0.8) K/uL Eos # (0.0-0.7) K/uL Baso # (0.0-0.2) K/uL Puncture Site pCO2 (35-45) mm/Hg pO2 (80-100) mm/Hg HCO3 (21-28) mmol/L ABG pH (7.35-7.45) ABG Total CO2 (22-28) mmol/L ABG O2 Saturation (95-98) % ABG Base Excess (-2.0-3.0) mmol/L ABG Hemoglobin (11.7-17.4) g/dL ABG Carboxyhemoglobin (0.5-1.5) % POC ABG HHb (Measured) (0.0-5.0) % ABG Methemoglobin (0.0-3.0) % Fish Test A-a O2 Difference mm/Hg Respiratory Index Hgb O2 Saturation (95.0-98.0) % Mechanical Rate FiO2 % Tidal Volume PEEP Sodium (132-148) mmol/L Potassium (3.6-5.2) mmol/L Chloride (98-107) mmol/L Carbon Dioxide (22-30) mmol/L Anion Gap (10-20) BUN (7-17) mg/dL Creatinine (0.7-1.2) MG/DL Est GFR ( Amer) Est GFR (Non-Af Amer) POC Glucose (mg/dL) (65-110) mg/dL Random Glucose (65-105) mg/dL Calcium (8.6-10.4) mg/dl Phosphorus (2.5-4.5) mg/dL Magnesium (1.6-2.3) mg/dL Total Bilirubin (0.2-1.3) mg/dL AST (14-36) U/L ALT (9-52) U/L Alkaline Phosphatase (38-126) U/L Total Creatine Kinase 3005 H (30-135) U/L CK-MB (Mass) 17.3 H (0.0-3.38) ng/mL Troponin I, Quant 0.2480 H* (0.00-0.120) ng/mL Total Protein (6.3-8.3) g/dL Albumin (3.5-5.0) g/dL Globulin (2.2-3.9) gm/dL Albumin/Globulin Ratio (1.0-2.1) Laboratory Results - last 24 hr 09/23/16 09/24/16 09/24/16 22:14 01:11 05:11 WBC RBC Hgb Hct MCV MCH MCHC RDW Plt Count MPV Neut % (Auto) Lymph % (Auto) Woodson % (Auto) Eos % (Auto) Baso % (Auto) Neut # Lymph # Woodson # Eos # Baso # Puncture Site Rb pCO2 54 H pO2 352 H HCO3 25.4 ABG pH 7.32 L ABG Total CO2 29.5 H ABG O2 Saturation 99.7 H ABG Base Excess 0.6 ABG Hemoglobin 14.5 ABG Carboxyhemoglobin 1.4 POC ABG HHb (Measured) 0.3 ABG Methemoglobin 1.5 Fish Test Na A-a O2 Difference 151.0 Respiratory Index 0.4 Hgb O2 Saturation 96.8 Mechanical Rate 14 FiO2 80.0 Tidal Volume 450 PEEP 5 Sodium Potassium Chloride Carbon Dioxide Anion Gap BUN Creatinine Est GFR ( Amer) Est GFR (Non-Af Amer) POC Glucose (mg/dL) 111 H Random Glucose Calcium Phosphorus Magnesium Total Bilirubin AST ALT Alkaline Phosphatase Total Creatine Kinase 3005 H CK-MB (Mass) 17.3 H Troponin I, Quant 0.2480 H* Total Protein Albumin Globulin Albumin/Globulin Ratio 09/24/16 09/24/16 09/24/16 05:38 06:07 11:45 WBC 6.8 RBC 4.58 Hgb 14.2 D Hct 41.9 MCV 91.5 MCH 31.0 MCHC 33.9 RDW 14.7 H Plt Count 190 MPV 9.2 Neut % (Auto) 84.4 H Lymph % (Auto) 12.0 L Woodson % (Auto) 3.1 Eos % (Auto) 0.0 Baso % (Auto) 0.5 Neut # 5.7 Lymph # 0.8 L Woodson # 0.2 Eos # 0.0 Baso # 0.0 Puncture Site pCO2 pO2 HCO3 ABG pH ABG Total CO2 ABG O2 Saturation ABG Base Excess ABG Hemoglobin ABG Carboxyhemoglobin POC ABG HHb (Measured) ABG Methemoglobin Fish Test A-a O2 Difference Respiratory Index Hgb O2 Saturation Mechanical Rate FiO2 Tidal Volume PEEP Sodium 142 Potassium 3.4 L Chloride 97 L Carbon Dioxide 28 Anion Gap 20 BUN 29 H Creatinine 1.2 Est GFR ( Amer) 52 Est GFR (Non-Af Amer) 43 POC Glucose (mg/dL) 109 140 H Random Glucose 129 H Calcium 7.4 L Phosphorus 4.4 Magnesium 1.7 Total Bilirubin 0.3 AST 90 H ALT 39 Alkaline Phosphatase 50 Total Creatine Kinase CK-MB (Mass) Troponin I, Quant Total Protein 6.5 Albumin 3.5 Globulin 3.0 Albumin/Globulin Ratio 1.2 09/24/16 12:48 WBC RBC Hgb Hct MCV MCH MCHC RDW Plt Count MPV Neut % (Auto) Lymph % (Auto) Woodson % (Auto) Eos % (Auto) Baso % (Auto) Neut # Lymph # Woodson # Eos # Baso # Puncture Site pCO2 pO2 HCO3 ABG pH ABG Total CO2 ABG O2 Saturation ABG Base Excess ABG Hemoglobin ABG Carboxyhemoglobin POC ABG HHb (Measured) ABG Methemoglobin Fish Test A-a O2 Difference Respiratory Index Hgb O2 Saturation Mechanical Rate FiO2 Tidal Volume PEEP Sodium Potassium Chloride Carbon Dioxide Anion Gap BUN Creatinine Est GFR ( Amer) Est GFR (Non-Af Amer) POC Glucose (mg/dL) Random Glucose Calcium Phosphorus Magnesium Total Bilirubin AST ALT Alkaline Phosphatase Total Creatine Kinase 1408 H CK-MB (Mass) 6.51 H Troponin I, Quant 0.2490 H* Total Protein Albumin Globulin Albumin/Globulin Ratio Attending/Attestation - Attestation I have personally seen and examined this patient.: Yes I have fully participated in the care of the patient.: Yes I have reviewed all pertinent clinical information: Yes Notes (Text): 09/24/16 17:49 Patient seen and examined in the intensive care unit. Lab data and imaging were reviewed and the management plan was formulated during multidisciplinary rounds with residents in the morning. wean as tolerated Cardiology evaluation for elevated troponins Lovenox and aspirin Continue IV steroids and nebulizer treatment
[2016-09-24] MEDS: Sodium Chloride 0.9% 1,000 ML IV SCH ×2 (15:35→18:38)
--- NOTE | 2016-09-24 17:50 | CARD ---
APPROVED REPORT EXAM: Two-dimensional and M-mode echocardiogram with Doppler and color Doppler. Other Information Quality : GoodRhythm : NSR INDICATION Diastolic Congestive Heart Failure M-Mode DIMENSIONS Left Atrium (MM)3.47 (2.5-4.0cm)IVSd0.76 (0.7-1.1cm) Aortic Root2.07 (2.2-3.7cm)LVDd4.48 (4.0-5.6cm) Aortic Cusp Exc.1.36 (1.5-2.0cm)PWd0.69 (0.7-1.1cm) FS (%) 16 %LVDs3.75 (2.0-3.8cm) LVEF (%)50 (>50%) Aortic Valve AoV Peak Imndtjnf907.7cm/Vijay Peak GR.7mmHg Mitral Valve MV E Flihqsxo82.1cm/sMV A Bnqdhlou535.7cm/sE/A ratio0.7 TDI E/Lateral E'0.0E/Medial E'0.0 Tricuspid Valve TR Peak Npoijoum665xx/sTR Peak Gr.[id number] LEFT VENTRICLE The left ventricle is normal size. There is normal left ventricular wall thickness. The left ventricular function is normal. The left ventricular ejection fraction is within the normal range. There is normal LV segmental wall motion. The left ventricular diastolic function is normal. RIGHT VENTRICLE The right ventricle is normal size. ATRIA The left atrium is borderline dilated. The right atrium size is normal. AORTIC VALVE The aortic valve is normal in structure. MITRAL VALVE The mitral valve is normal in structure. TRICUSPID VALVE There is trace tricuspid regurgitation. <Conclusion> Technically difficult study. L V systolic ufnction appears to be normal. Normal chamber size. Trace to mild TR.
[2016-09-24] MEDS ORDERED: Enoxaparin 60 mg Syringe SC SCH (22:00)
[2016-09-24] MEDS: Azithromycin 500 MG in Sodium Chloride 0.9% 250 ML IVPB SCH (22:03)
[2016-09-25] MEDS: Sodium Chloride 0.9% 1,000 ML IV SCH ×2 (02:25→11:00)
[2016-09-25] MEDS: Albuterol-Ipratrop 3 mg / 0.5 (3 ml) UD INH SCH ×5 (03:01→23:54)
[2016-09-25 05:40] LABS: ABG ALLEN TEST POS; ABG MECHANICAL RATE 14; ARTERIAL BLOOD HGB O2 SAT 96.4 % (95.0-98.0); ATERIAL BLOOD GAS PEEP 5; CARBOXYHEMOGLOBIN 1.4 % (0.5-1.5); DRAW SITE RR; HHB 1.1 % (0.0-5.0); METHEMOGLOBIN 1.1 % (0.0-3.0)
[2016-09-25] MEDS: MethylPREDNISolone 40 mg Vial IV SCH ×3 (06:10→21:19)
[2016-09-25 06:56] LABS: BASO % 0.1 % (0.0-2.0); HEMATOCRIT 38.2 % (34.0-47.0); LYMPH # 0.6 K/uL (1.0-4.3); LYMPH % 6.8 % (20.0-40.0); MEAN CORPUSCULAR HEMOGLOBIN 30.7 pg (27.0-31.0); MEAN CORPUSCULAR HGB CONC 33.8 g/dL (33.0-37.0); MEAN PLATELET VOLUME 9.5 fL (7.2-11.7); MONO # 0.6 K/uL (0.0-0.8); MONO % 6.3 % (0.0-10.0); NRBC % 0.1 % (0.0-2.0); PLATELET COUNT 180 K/uL (130-400); RED CELL DISTRIBUTION WIDTH 14.8 % (11.5-14.5); WHITE BLOOD COUNT 9.1 K/uL (4.8-10.8)
[2016-09-25 07:13] LABS: ALB/GLOB RATIO 0.9 (1.0-2.1); BILIRUBIN,TOTAL 0.5 mg/dL (0.2-1.3); PHOSPHOROUS 4.2 mg/dL (2.5-4.5); TOTAL PROTEIN 6.2 g/dL (6.3-8.3)
[2016-09-25 07:14] LABS: CALCIUM 7.2 mg/dl (8.6-10.4); MAGNESIUM 2.2 mg/dL (1.6-2.3)
[2016-09-25] MEDS ORDERED: Heparin25000 units/250ml 1/2NS 250 ML IV PRN (08:34)
[2016-09-25 08:57] LABS: NEUTROPHIL 74 % (50-75); TOTAL CELLS COUNTED 100
[2016-09-25] MEDS ORDERED: Sodium Chloride 0.9% 1,000 ML IV ONE (09:09)
--- NOTE | 2016-09-25 10:27 | CP.CCUPN ---
<Fabian Levy - Last Filed: 09/25/16 10:20> CCU Subjective - Physician Review Subjective (Free Text): 09/24/16 13:39 Patient was seen and examined at bedside. No acute distress on ventilator. No acute events overnight. Nursing staff reports no issues. Patient is resting comfortably on the bed, maintained on a propofol drip 10mcg/kg/min. Patient is lethargic but awakens to voice, follows command. Denies any pain or complaints aside from the ventilator. Hypercarbia has improved on todays ABG. 09/25/16 10:20 Patient was seen and examined at bedside. No acute distress on ventilator. No acute events overnight. Nursing staff reports no issues. Patient is resting comfortably on the bed. Patient is on cPAP. Patient is planned for extubation today. Hypercarbia has stabilized. Patient is likely at her baseline. Today, nicotine patch was ordered and a fluid challenge (250cc bolus) due to acute rise in BUN/Cr. Critical Care Time Spent (in minutes): 60 CCU Objective - Vital Signs / Intake & Output Vital Signs (Last 4 hours): Vital Signs Temp Pulse Resp BP Pulse Ox 09/25/16 09:00 102 H 32 H 96 09/25/16 08:52 107 H 32 H 137/102 H 96 09/25/16 08:00 98.3 F 78 13 100 09/25/16 07:50 74 14 140/73 96 09/25/16 07:06 70 14 95 09/25/16 07:00 73 14 95 09/25/16 06:50 74 14 138/70 95 Intake and Output (Last 8hrs): Intake & Output 09/24/16 09/25/16 09/25/16 22:59 06:59 14:59 Intake Total 1288.7 1138.4 129.8 Output Total 205 200 75 Balance 1083.7 938.4 54.8 Weight 89.386 kg Intake: Intake, IV Amount 1108.7 978.4 109.8 Right Forearm 950 800 100 Left Forearm 48.9 78.4 9.8 Right Forearm 100 100 Left Wrist 9.8 Tube Feeding 100 160 20 Other 80 Output: Gastric Amount 25 Stomach 25 Urine 180 200 75 Urethral (Antony) 180 200 75 Other: # Bowel Movements 0 0 - Physical Exam Head: Positive for: Atraumatic, Normocephalic, Other (ET Tube in place) Pupils: Positive for: PERRL Mouth: Positive for: Dry Respiratory/Chest: Positive for: Clear to Auscultation, Good Air Exchange. Negative for: Respiratory Distress Cardiovascular: Positive for: Regular Rate and Rhythm, Normal S1, S2. Negative for: Murmurs Abdomen: Positive for: Normal Bowel Sounds. Negative for: Tenderness, Distention Upper Extremity: Positive for: Normal Inspection. Negative for: Cyanosis, Edema Lower Extremity: Positive for: Normal Inspection. Negative for: Edema, CALF TENDERNESS Skin: Positive for: Warm, Dry Psychiatric: Positive for: Alert - Medications Active Medications: Active Medications Generic Name Dose Route Start Last Admin Trade Name Freq PRN Reason Stop Dose Admin Albuterol/Ipratropium 3 ml 09/23/16 22:00 09/25/16 07:48 Duoneb 3 Mg/0.5 Mg (3 Ml) Ud INH 3 ml RQ4 KAILA Administration Aspirin 81 mg 09/24/16 18:30 09/24/16 18:31 Aspirin Chewable PO 81 mg DAILY KAILA Administration Propofol 100 mls @ 1.973 mls/hr 09/23/16 19:55 09/25/16 07:33 Diprivan IV 0 mcg/kg/min .Q24H PRN Titration TITRATE PER MD ORDER Protocol 5 MCG/KG/MIN Ceftriaxone Sodium 2 gm/ 100 mls @ 100 mls/hr 09/23/16 23:30 09/24/16 23:34 Sodium Chloride IVPB 100 mls/hr Q24H KAILA Administration Azithromycin 500 mg/ Sodium 250 mls @ 250 mls/hr 09/23/16 22:15 09/24/16 22:03 Chloride IVPB 250 mls/hr Q24H KAILA Administration Sodium Chloride 1,000 mls @ 100 mls/hr 09/24/16 14:15 09/25/16 02:25 Sodium Chloride 0.9% IV 100 mls/hr .Q10H KAILA Administration Heparin Sodium/Sodium Chloride 250 mls @ 10.726 mls/hr 09/25/16 08:34 09/25/16 09:34 Heparin 03064 Units/250ml 1/2 Normal Saline IV 10.726 mls/hr .[id number] PRN Administration PROTOCOL Protocol 12 UNITS/KG/HR Sodium Chloride 1,000 mls @ 250 mls/hr 09/25/16 09:09 09/25/16 09:34 Sodium Chloride 0.9% IV 09/25/16 13:08 250 mls/hr .Q4H ONE Administration Methylprednisolone 40 mg 09/24/16 06:00 09/25/16 06:10 Solu-Medrol IV 40 mg Q8 KAILA Administration Nicotine 1 patch 09/25/16 10:00 Nicoderm Cq TD DAILY KAILA Rosuvastatin Calcium 10 mg 09/23/16 22:00 09/24/16 22:00 Crestor PO 10 mg HS KAILA Administration Sucralfate 1 gm 09/24/16 10:00 09/24/16 09:45 Carafate Oral Susp PO 1 gm DAILY KAILA Administration - Patient Studies Lab Studies: Lab Studies 09/25/16 09/25/16 09/25/16 Range/Units 06:50 05:09 00:29 WBC 9.1 (4.8-10.8) K/uL RBC 4.20 (3.80-5.20) Mil/uL Hgb 12.9 (11.0-16.0) g/dL Hct 38.2 (34.0-47.0) % MCV 91.0 (81.0-99.0) fL MCH 30.7 (27.0-31.0) pg MCHC 33.8 (33.0-37.0) g/dL RDW 14.8 H (11.5-14.5) % Plt Count 180 (130-400) K/uL MPV 9.5 (7.2-11.7) fL Neut % (Auto) 86.8 H (50.0-75.0) % Lymph % (Auto) 6.8 L (20.0-40.0) % [place] % (Auto) 6.3 (0.0-10.0) % Eos % (Auto) 0.0 (0.0-4.0) % Baso % (Auto) 0.1 (0.0-2.0) % Neut # 7.9 H (1.8-7.0) K/uL Lymph # 0.6 L (1.0-4.3) K/uL [place] # 0.6 (0.0-0.8) K/uL Eos # 0.0 (0.0-0.7) K/uL Baso # 0.0 (0.0-0.2) K/uL Neutrophils % (Manual) 74 (50-75) % Band Neutrophils % 14 H* (0-2) % Lymphocytes % (Manual) 6 L (20-40) % Monocytes % (Manual) 6 (0-10) % Platelet Estimate Normal (NORMAL) RBC Morphology Normal Puncture Site Rr pCO2 53 H (35-45) mm/Hg pO2 113 H (80-100) mm/Hg HCO3 23.0 (21-28) mmol/L ABG pH 7.28 L (7.35-7.45) ABG Total CO2 26.5 (22-28) mmol/L ABG O2 Saturation 98.9 H (95-98) % ABG Base Excess -2.5 L (-2.0-3.0) mmol/L ABG Hemoglobin 12.7 (11.7-17.4) g/dL ABG Carboxyhemoglobin 1.4 (0.5-1.5) % POC ABG HHb (Measured) 1.1 (0.0-5.0) % ABG Methemoglobin 1.1 (0.0-3.0) % Fish Test Pos A-a O2 Difference 177.0 mm/Hg Respiratory Index 1.6 Hgb O2 Saturation 96.4 (95.0-98.0) % Mechanical Rate 14 FiO2 50.0 % Tidal Volume 450 PEEP 5 Sodium 141 (132-148) mmol/L Potassium 4.0 (3.6-5.2) mmol/L Chloride 102 (98-107) mmol/L Carbon Dioxide 25 (22-30) mmol/L Anion Gap 18 (10-20) BUN 41 H (7-17) mg/dL Creatinine 1.4 H (0.7-1.2) MG/DL Est GFR ( Amer) 43 Est GFR (Non-Af Amer) 36 POC Glucose (mg/dL) 165 H (65-110) mg/dL Random Glucose 169 H (65-105) mg/dL Calcium 7.2 L (8.6-10.4) mg/dl Phosphorus 4.2 (2.5-4.5) mg/dL Magnesium 2.2 (1.6-2.3) mg/dL Total Bilirubin 0.5 (0.2-1.3) mg/dL AST 61 H D (14-36) U/L ALT 35 (9-52) U/L Alkaline Phosphatase 49 (38-126) U/L Total Creatine Kinase (30-135) U/L CK-MB (Mass) (0.0-3.38) ng/mL Troponin I, Quant (0.00-0.120) ng/mL Total Protein 6.2 L (6.3-8.3) g/dL Albumin 3.0 L (3.5-5.0) g/dL Globulin 3.2 (2.2-3.9) gm/dL Albumin/Globulin Ratio 0.9 L (1.0-2.1) 09/24/16 09/24/16 09/24/16 Range/Units 18:00 12:48 11:45 WBC (4.8-10.8) K/uL RBC (3.80-5.20) Mil/uL Hgb (11.0-16.0) g/dL Hct (34.0-47.0) % MCV (81.0-99.0) fL MCH (27.0-31.0) pg MCHC (33.0-37.0) g/dL RDW (11.5-14.5) % Plt Count (130-400) K/uL MPV (7.2-11.7) fL Neut % (Auto) (50.0-75.0) % Lymph % (Auto) (20.0-40.0) % [place] % (Auto) (0.0-10.0) % Eos % (Auto) (0.0-4.0) % Baso % (Auto) (0.0-2.0) % Neut # (1.8-7.0) K/uL Lymph # (1.0-4.3) K/uL [place] # (0.0-0.8) K/uL Eos # (0.0-0.7) K/uL Baso # (0.0-0.2) K/uL Neutrophils % (Manual) (50-75) % Band Neutrophils % (0-2) % Lymphocytes % (Manual) (20-40) % Monocytes % (Manual) (0-10) % Platelet Estimate (NORMAL) RBC Morphology Puncture Site pCO2 (35-45) mm/Hg pO2 (80-100) mm/Hg HCO3 (21-28) mmol/L ABG pH (7.35-7.45) ABG Total CO2 (22-28) mmol/L ABG O2 Saturation (95-98) % ABG Base Excess (-2.0-3.0) mmol/L ABG Hemoglobin (11.7-17.4) g/dL ABG Carboxyhemoglobin (0.5-1.5) % POC ABG HHb (Measured) (0.0-5.0) % ABG Methemoglobin (0.0-3.0) % Fish Test A-a O2 Difference mm/Hg Respiratory Index Hgb O2 Saturation (95.0-98.0) % Mechanical Rate FiO2 % Tidal Volume PEEP Sodium (132-148) mmol/L Potassium (3.6-5.2) mmol/L Chloride (98-107) mmol/L Carbon Dioxide (22-30) mmol/L Anion Gap (10-20) BUN (7-17) mg/dL Creatinine (0.7-1.2) MG/DL Est GFR ( Amer) Est GFR (Non-Af Amer) POC Glucose (mg/dL) 141 H 140 H (65-110) mg/dL Random Glucose (65-105) mg/dL Calcium (8.6-10.4) mg/dl Phosphorus (2.5-4.5) mg/dL Magnesium (1.6-2.3) mg/dL Total Bilirubin (0.2-1.3) mg/dL AST (14-36) U/L ALT (9-52) U/L Alkaline Phosphatase (38-126) U/L Total Creatine Kinase 1408 H (30-135) U/L CK-MB (Mass) 6.51 H (0.0-3.38) ng/mL Troponin I, Quant 0.2490 H* (0.00-0.120) ng/mL Total Protein (6.3-8.3) g/dL Albumin (3.5-5.0) g/dL Globulin (2.2-3.9) gm/dL Albumin/Globulin Ratio (1.0-2.1) Laboratory Results - last 24 hr 09/24/16 09/24/1609/24/17 11:45 12:48 18:00 WBC RBC Hgb Hct MCV MCH MCHC RDW Plt Count MPV Neut % (Auto) Lymph % (Auto) [place] % (Auto) Eos % (Auto) Baso % (Auto) Neut # Lymph # [place] # Eos # Baso # Neutrophils % (Manual) Band Neutrophils % Lymphocytes % (Manual) Monocytes % (Manual) Platelet Estimate RBC Morphology Puncture Site pCO2 pO2 HCO3 ABG pH ABG Total CO2 ABG O2 Saturation ABG Base Excess ABG Hemoglobin ABG Carboxyhemoglobin POC ABG HHb (Measured) ABG Methemoglobin Fish Test A-a O2 Difference Respiratory Index Hgb O2 Saturation Mechanical Rate FiO2 Tidal Volume PEEP Sodium Potassium Chloride Carbon Dioxide Anion Gap BUN Creatinine Est GFR ( Amer) Est GFR (Non-Af Amer) POC Glucose (mg/dL) 140 H 141 H Random Glucose Calcium Phosphorus Magnesium Total Bilirubin AST ALT Alkaline Phosphatase Total Creatine Kinase 1408 H CK-MB (Mass) 6.51 H Troponin I, Quant 0.2490 H* Total Protein Albumin Globulin Albumin/Globulin Ratio 09/25/16 09/25/16 09/25/16 00:29 05:09 06:50 WBC 9.1 RBC 4.20 Hgb 12.9 Hct 38.2 MCV 91.0 MCH 30.7 MCHC 33.8 RDW 14.8 H Plt Count 180 MPV 9.5 Neut % (Auto) 86.8 H Lymph % (Auto) 6.8 L [place] % (Auto) 6.3 Eos % (Auto) 0.0 Baso % (Auto) 0.1 Neut # 7.9 H Lymph # 0.6 L [place] # 0.6 Eos # 0.0 Baso # 0.0 Neutrophils % (Manual) 74 Band Neutrophils % 14 H* Lymphocytes % (Manual) 6 L Monocytes % (Manual) 6 Platelet Estimate Normal RBC Morphology Normal Puncture Site Rr pCO2 53 H pO2 113 H HCO3 23.0 ABG pH 7.28 L ABG Total CO2 26.5 ABG O2 Saturation 98.9 H ABG Base Excess -2.5 L ABG Hemoglobin 12.7 ABG Carboxyhemoglobin 1.4 POC ABG HHb (Measured) 1.1 ABG Methemoglobin 1.1 Fish Test Pos A-a O2 Difference 177.0 Respiratory Index 1.6 Hgb O2 Saturation 96.4 Mechanical Rate 14 FiO2 50.0 Tidal Volume 450 PEEP 5 Sodium 141 Potassium 4.0 Chloride 102 Carbon Dioxide 25 Anion Gap 18 BUN 41 H Creatinine 1.4 H Est GFR ( Amer) 43 Est GFR (Non-Af Amer) 36 POC Glucose (mg/dL) 165 H Random Glucose 169 H Calcium 7.2 L Phosphorus 4.2 Magnesium 2.2 Total Bilirubin 0.5 AST 61 H D ALT 35 Alkaline Phosphatase 49 Total Creatine Kinase CK-MB (Mass) Troponin I, Quant Total Protein 6.2 L Albumin 3.0 L Globulin 3.2 Albumin/Globulin Ratio 0.9 L Fingerstick Blood Sugar Results: 141 Review of Systems - Review of Systems Systems not reviewed;Unavailable: Intubated Critical Care Progress Note - Ventilator Checklist Head of Bed 30 Degrees: Yes - Vent Settings MODE:: CPAP Assessment/Plan - Assessment and Plan (Free Text) Assessment: This is an 86 y/o female with a suspected PMH of smoking, COPD, and HTN presenting with respiratory failure and hypercarbic encephalopathy. Today, plan for extubation and possible cath with Dr. Mendes. The patient will undergo a fluid challenge for acute rise in BUN/Cr. Patient currently on CPAP. Plan: Neuro: Patient awakens to voice and responds to command. Sedation discontinued Denies pain or discomfort 09/23/16 CT Head- Generalized atrophy. Nonspecific white matter changes. Nicotine patch 21mg ordered for tobacco abuse disorder Cardiovascular: Regular rate and rhythm Troponin- 0.2400 > 0.2480 > 0.2490 09/24/16 ECHO- official read pending 09/23/16 EKG- sinus tachycardia with PACs, low voltage QRS, possible anteroseptal infarct age undetermined- official read pending Suspect elevated troponin due to demand ischemia Rouvastatin 10mg po hs IVF- NS @ 100ml/hr Possible Cath today with Dr. Mendes Pulmonary: Solumedrol 40mg IV q8 Duoneb q4 Imagin09/25/16 CXR- ET tube in good position- official read pending 09/24/16 CXR- mild venous congestion 09/23/16 CXR- Probable Mach artifact with linear lucency in the left mid susie thorax. Mild venous congestion. Elevated right hemidiaphragm. Right hilar prominence. Endotracheal tube extending into the mid thoracic trachea. NG tube extending into the stomach. 09/23/16 CXR- Biapical pleural thickening with upper lobe granulomatous changes. Some airspace opacification at the right lung apex and right hilar region. Scattered nodularity in both lungs most predominant at the lung bases. Increased markings at the lung bases which may represent some patchy atelectasis. Ventilator settings: PRVC 16/1L/50/5 AB09/25/16 pH 7.28, CO2 53, O2 113, HCO3 23 09/24/16 pH 7.32, CO2 54, O2 352, HCO3 25.4 09/23/16 O2 345 09/23/16 pH 7.22, CO2 80, O2 377, HCO3 26.9 GI: Carafate 1g po daily Hematology: No leukocytosis Hgb/Hct stable Endocrine: maintain euglycemia HbA1c- 5.9 CK- 3005 IVF- NS @ 100ml/hr Renal: Actue rise in BUN/Cr: 41/1.4- possibly 2/2 to steroid use vs abx induced vs pre- renal - fluid challenge 250cc - continue IVF Hypokalemia- resolved Hypomagnesemia- resolved IVF- NS @ 100ml/hr ID: No leukocytosis U/A negative Day 3 Rocephin 2g IV daily- start 09/23/16 Day 2 Azithromycin 500mg IV daily- start 09/24/16 : None MSK: None GI Prophylaxis- Carafate 1g po daily DVT Prophylaxis- Heparin [id number] IV Tommie Levy PGY1 [id number] - Date & Time Date: 09/25/16 Time: 10:27 <Kendrick Yo - Last Filed: 09/25/16 16:11> CCU Objective - Vital Signs / Intake & Output Vital Signs (Last 4 hours): Vital Signs Temp Pulse Resp BP Pulse Ox 09/25/16 16:00 97.2 F L 74 14 97 09/25/16 15:50 82 14 137/72 96 09/25/16 15:02 82 14 97 09/25/16 15:00 87 14 96 09/25/16 14:50 82 14 133/70 09/25/16 14:16 93 H 16 96 09/25/16 14:14 95 H 15 138/73 95 09/25/16 14:00 97 H 14 97 09/25/16 13:16 105 H 34 H 96 09/25/16 13:00 109 H 34 H 96 09/25/16 12:51 108 H 32 H 141/77 95 09/25/16 12:33 105 H 32 H 96 Intake and Output (Last 8hrs): Intake & Output 09/25/16 09/25/16 09/25/16 06:59 14:59 22:59 Intake Total 1138.4 1301.9 260 Output Total 200 250 60 Balance 938.4 1051.9 200 Weight 197 lb 1 oz Intake: Intake, IV Amount 978.4 991.9 200 Right Forearm 800 950 200 Left Forearm 78.4 41.9 Right Forearm 100 Tube Feeding 160 70 60 Other 240 Output: Urine 200 250 60 Urethral (Antony) 200 250 60 Other: # Bowel Movements 0 0 0 - Medications Active Medications: Active Medications Generic Name Dose Route Start Last Admin Trade Name Freq PRN Reason Stop Dose Admin Albuterol/Ipratropium 3 ml 09/23/16 22:00 09/25/16 07:48 Duoneb 3 Mg/0.5 Mg (3 Ml) Ud INH 3 ml RQ4 KAILA Administration Aspirin 81 mg 09/24/16 18:30 09/25/16 10:35 Aspirin Chewable PO 81 mg DAILY KAILA Administration Clopidogrel Bisulfate 75 mg 09/26/16 10:00 Plavix PO DAILY KAILA Propofol 100 mls @ 1.973 mls/hr 09/23/16 19:55 09/25/16 07:33 Diprivan IV 0 mcg/kg/min .Q24H PRN Titration TITRATE PER MD ORDER Protocol 5 MCG/KG/MIN Ceftriaxone Sodium 2 gm/ 100 mls @ 100 mls/hr 09/23/16 23:30 09/24/16 23:34 Sodium Chloride IVPB 100 mls/hr Q24H KAILA Administration Azithromycin 500 mg/ Sodium 250 mls @ 250 mls/hr 09/23/16 22:15 09/24/16 22:03 Chloride IVPB 250 mls/hr Q24H KAILA Administration Sodium Chloride 1,000 mls @ 100 mls/hr 09/24/16 14:15 09/25/16 11:00 Sodium Chloride 0.9% IV Not Given .Q10H KAILA Methylprednisolone 40 mg 09/24/16 06:00 09/25/16 13:05 Solu-Medrol IV 40 mg Q8 KAILA Administration Nicotine 1 patch 09/25/16 10:00 09/25/16 10:35 Nicoderm Cq TD 1 patch DAILY KAILA Administration Rosuvastatin Calcium 10 mg 09/23/16 22:00 09/24/16 22:00 Crestor PO 10 mg HS KAILA Administration Sucralfate 1 gm 09/24/16 10:00 09/25/16 10:35 Carafate Oral Susp PO 1 gm DAILY KAILA Administration - Patient Studies Lab Studies: Microbiology Studies 09/23/16 23:01 MRSA Culture (Admit) - Final Nose MRSA NOT DETECTED 09/23/16 Unknown Urine Culture - Final Urine No Growth (<1,000 CFU/ML) Lab Studies 09/25/16 09/25/16 09/25/16 Range/Units 11:53 06:50 05:09 WBC 9.1 (4.8-10.8) K/uL RBC 4.20 (3.80-5.20) Mil/uL Hgb 12.9 (11.0-16.0) g/dL Hct 38.2 (34.0-47.0) % MCV 91.0 (81.0-99.0) fL MCH 30.7 (27.0-31.0) pg MCHC 33.8 (33.0-37.0) g/dL RDW 14.8 H (11.5-14.5) % Plt Count 180 (130-400) K/uL MPV 9.5 (7.2-11.7) fL Neut % (Auto) 86.8 H (50.0-75.0) % Lymph % (Auto) 6.8 L (20.0-40.0) % [place] % (Auto) 6.3 (0.0-10.0) % Eos % (Auto) 0.0 (0.0-4.0) % Baso % (Auto) 0.1 (0.0-2.0) % Neut # 7.9 H (1.8-7.0) K/uL Lymph # 0.6 L (1.0-4.3) K/uL [place] # 0.6 (0.0-0.8) K/uL Eos # 0.0 (0.0-0.7) K/uL Baso # 0.0 (0.0-0.2) K/uL Neutrophils % (Manual) 74 (50-75) % Band Neutrophils % 14 H* (0-2) % Lymphocytes % (Manual) 6 L (20-40) % Monocytes % (Manual) 6 (0-10) % Platelet Estimate Normal (NORMAL) RBC Morphology Normal Puncture Site Rr pCO2 53 H (35-45) mm/Hg pO2 113 H (80-100) mm/Hg HCO3 23.0 (21-28) mmol/L ABG pH 7.28 L (7.35-7.45) ABG Total CO2 26.5 (22-28) mmol/L ABG O2 Saturation 98.9 H (95-98) % ABG Base Excess -2.5 L (-2.0-3.0) mmol/L ABG Hemoglobin 12.7 (11.7-17.4) g/dL ABG Carboxyhemoglobin 1.4 (0.5-1.5) % POC ABG HHb (Measured) 1.1 (0.0-5.0) % ABG Methemoglobin 1.1 (0.0-3.0) % Fish Test Pos A-a O2 Difference 177.0 mm/Hg Respiratory Index 1.6 Hgb O2 Saturation 96.4 (95.0-98.0) % Mechanical Rate 14 FiO2 50.0 % Tidal Volume 450 PEEP 5 Sodium 141 (132-148) mmol/L Potassium 4.0 (3.6-5.2) mmol/L Chloride 102 (98-107) mmol/L Carbon Dioxide 25 (22-30) mmol/L Anion Gap 18 (10-20) BUN 41 H (7-17) mg/dL Creatinine 1.4 H (0.7-1.2) MG/DL Est GFR ( Amer) 43 Est GFR (Non-Af Amer) 36 POC Glucose (mg/dL) 147 H (65-110) mg/dL Random Glucose 169 H (65-105) mg/dL Calcium 7.2 L (8.6-10.4) mg/dl Phosphorus 4.2 (2.5-4.5) mg/dL Magnesium 2.2 (1.6-2.3) mg/dL Total Bilirubin 0.5 (0.2-1.3) mg/dL AST 61 H D (14-36) U/L ALT 35 (9-52) U/L Alkaline Phosphatase 49 (38-126) U/L Total Protein 6.2 L (6.3-8.3) g/dL Albumin 3.0 L (3.5-5.0) g/dL Globulin 3.2 (2.2-3.9) gm/dL Albumin/Globulin Ratio 0.9 L (1.0-2.1) 09/25/16 09/25/16 09/24/16 Range/Units 04:58 00:29 18:00 WBC (4.8-10.8) K/uL RBC (3.80-5.20) Mil/uL Hgb (11.0-16.0) g/dL Hct (34.0-47.0) % MCV (81.0-99.0) fL MCH (27.0-31.0) pg MCHC (33.0-37.0) g/dL RDW (11.5-14.5) % Plt Count (130-400) K/uL MPV (7.2-11.7) fL Neut % (Auto) (50.0-75.0) % Lymph % (Auto) (20.0-40.0) % [place] % (Auto) (0.0-10.0) % Eos % (Auto) (0.0-4.0) % Baso % (Auto) (0.0-2.0) % Neut # (1.8-7.0) K/uL Lymph # (1.0-4.3) K/uL [place] # (0.0-0.8) K/uL Eos # (0.0-0.7) K/uL Baso # (0.0-0.2) K/uL Neutrophils % (Manual) (50-75) % Band Neutrophils % (0-2) % Lymphocytes % (Manual) (20-40) % Monocytes % (Manual) (0-10) % Platelet Estimate (NORMAL) RBC Morphology Puncture Site pCO2 (35-45) mm/Hg pO2 (80-100) mm/Hg HCO3 (21-28) mmol/L ABG pH (7.35-7.45) ABG Total CO2 (22-28) mmol/L ABG O2 Saturation (95-98) % ABG Base Excess (-2.0-3.0) mmol/L ABG Hemoglobin (11.7-17.4) g/dL ABG Carboxyhemoglobin (0.5-1.5) % POC ABG HHb (Measured) (0.0-5.0) % ABG Methemoglobin (0.0-3.0) % Fish Test A-a O2 Difference mm/Hg Respiratory Index Hgb O2 Saturation (95.0-98.0) % Mechanical Rate FiO2 % Tidal Volume PEEP Sodium (132-148) mmol/L Potassium (3.6-5.2) mmol/L Chloride (98-107) mmol/L Carbon Dioxide (22-30) mmol/L Anion Gap (10-20) BUN (7-17) mg/dL Creatinine (0.7-1.2) MG/DL Est GFR ( Amer) Est GFR (Non-Af Amer) POC Glucose (mg/dL) 165 H 165 H 141 H (65-110) mg/dL Random Glucose (65-105) mg/dL Calcium (8.6-10.4) mg/dl Phosphorus (2.5-4.5) mg/dL Magnesium (1.6-2.3) mg/dL Total Bilirubin (0.2-1.3) mg/dL AST (14-36) U/L ALT (9-52) U/L Alkaline Phosphatase (38-126) U/L Total Protein (6.3-8.3) g/dL Albumin (3.5-5.0) g/dL Globulin (2.2-3.9) gm/dL Albumin/Globulin Ratio (1.0-2.1) Laboratory Results - last 24 hr 09/24/16 09/25/16 09/25/16 18:00 00:29 04:58 WBC RBC Hgb Hct MCV MCH MCHC RDW Plt Count MPV Neut % (Auto) Lymph % (Auto) [place] % (Auto) Eos % (Auto) Baso % (Auto) Neut # Lymph # [place] # Eos # Baso # Neutrophils % (Manual) Band Neutrophils % Lymphocytes % (Manual) Monocytes % (Manual) Platelet Estimate RBC Morphology Puncture Site pCO2 pO2 HCO3 ABG pH ABG Total CO2 ABG O2 Saturation ABG Base Excess ABG Hemoglobin ABG Carboxyhemoglobin POC ABG HHb (Measured) ABG Methemoglobin Fish Test A-a O2 Difference Respiratory Index Hgb O2 Saturation Mechanical Rate FiO2 Tidal Volume PEEP Sodium Potassium Chloride Carbon Dioxide Anion Gap BUN Creatinine Est GFR ( Amer) Est GFR (Non-Af Amer) POC Glucose (mg/dL) 141 H 165 H 165 H Random Glucose Calcium Phosphorus Magnesium Total Bilirubin AST ALT Alkaline Phosphatase Total Protein Albumin Globulin Albumin/Globulin Ratio 09/25/16 09/25/16 09/25/16 05:09 06:50 11:53 WBC 9.1 RBC 4.20 Hgb 12.9 Hct 38.2 MCV 91.0 MCH 30.7 MCHC 33.8 RDW 14.8 H Plt Count 180 MPV 9.5 Neut % (Auto) 86.8 H Lymph % (Auto) 6.8 L [place] % (Auto) 6.3 Eos % (Auto) 0.0 Baso % (Auto) 0.1 Neut # 7.9 H Lymph # 0.6 L [place] # 0.6 Eos # 0.0 Baso # 0.0 Neutrophils % (Manual) 74 Band Neutrophils % 14 H* Lymphocytes % (Manual) 6 L Monocytes % (Manual) 6 Platelet Estimate Normal RBC Morphology Normal Puncture Site Rr pCO2 53 H pO2 113 H HCO3 23.0 ABG pH 7.28 L ABG Total CO2 26.5 ABG O2 Saturation 98.9 H ABG Base Excess -2.5 L ABG Hemoglobin 12.7 ABG Carboxyhemoglobin 1.4 POC ABG HHb (Measured) 1.1 ABG Methemoglobin 1.1 Fish Test Pos A-a O2 Difference 177.0 Respiratory Index 1.6 Hgb O2 Saturation 96.4 Mechanical Rate 14 FiO2 50.0 Tidal Volume 450 PEEP 5 Sodium 141 Potassium 4.0 Chloride 102 Carbon Dioxide 25 Anion Gap 18 BUN 41 H Creatinine 1.4 H Est GFR ( Amer) 43 Est GFR (Non-Af Amer) 36 POC Glucose (mg/dL) 147 H Random Glucose 169 H Calcium 7.2 L Phosphorus 4.2 Magnesium 2.2 Total Bilirubin 0.5 AST 61 H D ALT 35 Alkaline Phosphatase 49 Total Protein 6.2 L Albumin 3.0 L Globulin 3.2 Albumin/Globulin Ratio 0.9 L Attending/Attestation - Attestation I have personally seen and examined this patient.: Yes I have fully participated in the care of the patient.: Yes I have reviewed all pertinent clinical information: Yes Notes (Text): 09/25/16 16:07 Patient seen and examined in the intensive care unit. Case discussed with staff in the morning rounds. tolerated CPAP for a few hours and then switched back to PRVC because of tidal volume Continue IV steroids and nebulizer treatment Seen by cardiology and refused cardiac cath Continue present treatment
[2016-09-25] MEDS: Sucralfate 1 gm/10 ml Oral Susp UD PO SCH (10:35)
--- NOTE | 2016-09-25 10:58 | RAD ---
HISTORY: ET Tube Evaluation COMPARISON: 09/24/2016. FINDINGS: LUNGS: Mild hazy opacity in the lung bases. Hazy opacity in the right paratracheal region again noted. PLEURA: No significant pleural effusion identified, no pneumothorax apparent.Biapical pleural parenchymal thickening noted. CARDIOVASCULAR: Stable cardiomediastinal silhouette. The rounded opacity in the right hilum could represent an ectatic/aneurysmally dilated ascending aorta. Aortic arch calcifications seen. OSSEOUS STRUCTURES: Diffuse osteopenia. The osseous structures demonstrate degenerative changes. VISUALIZED UPPER ABDOMEN: Upper abdomen is suboptimally evaluated. OTHER FINDINGS: ETT with the distal tip above the tracheal bifurcation. Feeding tube noted with the distal tube coursing below the diaphragm. Tubing overlying the right hemithorax has been removed. IMPRESSION: Mild hazy opacities in the lung bases. Other findings as above.
--- NOTE | 2016-09-25 11:22 | CARD ---
APPROVED REPORT EKG Measurement Heart [id number] <Conclusion> Sinus tachycardia with premature atrial complexes Low voltage QRS Cannot rule out Anteroseptal infarct, age undetermined Abnormal ECG
--- NOTE | 2016-09-25 12:21 | CP.PCM.PN ---
Subjective - Date & Time of Evaluation Date of Evaluation: 09/25/16 Time of Evaluation: 12:18 - Subjective Subjective: 86 year old famale was admitted to [facility] for respirtory failure. She was found to have abnormal troponin and cardiology was consult for NSTEMI. Patient was examined while intubated but awake. She denies angina. Objective - Vital Signs/Intake and Output Vital Signs (last 24 hours): Temp Pulse Resp BP Pulse Ox 98.3 F 108 H 32 H 154/82 H 97 09/25/16 08:00 09/25/16 11:00 09/25/16 11:00 09/25/16 10:50 09/25/16 11:00 Intake and Output: 09/25/16 09/25/16 06:59 18:59 Intake Total 1991.5 861.2 Output Total 290 170 Balance 1701.5 691.2 - Medications Medications: Current Medications Albuterol/Ipratropium (Duoneb 3 Mg/0.5 Mg (3 Ml) Ud) 3 ml INH RQ4 [facility] Last Admin: 09/25/16 07:48 Dose: 3 ml Aspirin (Aspirin Chewable) 81 mg PO DAILY [facility] Last Admin: 09/25/16 10:35 Dose: 81 mg Propofol (Diprivan) 100 mls @ 1.973 mls/hr IV .Q24H PRN; Protocol; 5 MCG/KG/MIN PRN Reason: TITRATE PER MD ORDER Last Titration: 09/25/16 07:33 Dose: 0 mcg/kg/min Ceftriaxone Sodium 2 gm/ (Sodium Chloride) 100 mls @ 100 mls/hr IVPB Q24H [facility] Last Admin: 09/24/16 23:34 Dose: 100 mls/hr Azithromycin 500 mg/ Sodium (Chloride) 250 mls @ 250 mls/hr IVPB Q24H [facility] Last Admin: 09/24/16 22:03 Dose: 250 mls/hr Sodium Chloride (Sodium Chloride 0.9%) 1,000 mls @ 100 mls/hr IV .Q10H [facility] Last Admin: 09/25/16 11:00 Dose: Not Given Heparin Sodium/Sodium Chloride (Heparin 50650 Units/250ml 1/2 Normal Saline) 250 mls @ 10.726 mls/hr IV .[id number] PRN; Protocol; 12 UNITS/KG/HR PRN Reason: PROTOCOL Last Admin: 09/25/16 09:34 Dose: 10.726 mls/hr Sodium Chloride (Sodium Chloride 0.9%) 1,000 mls @ 250 mls/hr IV .Q4H ONE Stop: 09/25/16 13:08 Last Admin: 09/25/16 09:34 Dose: 250 mls/hr Methylprednisolone (Solu-Medrol) 40 mg IV Q8 [facility] Last Admin: 09/25/16 06:10 Dose: 40 mg Nicotine (Nicoderm Cq) 1 patch TD DAILY [facility] Last Admin: 09/25/16 10:35 Dose: 1 patch Rosuvastatin Calcium (Crestor) 10 mg PO HS [facility] Last Admin: 09/24/16 22:00 Dose: 10 mg Sucralfate (Carafate Oral Susp) 1 gm PO DAILY [facility] Last Admin: 09/25/16 10:35 Dose: 1 gm - Labs Labs: 09/25/16 06:50 09/25/16 06:50 PT 11.2 SECONDS (9.7-12.2) 09/23/16 19:22 INR 1.0 09/23/16 19:22 APTT 35 SECONDS (21-34) H 09/23/16 19:22 - Constitutional Appears: Non-toxic - Head Exam Head Exam: ATRAUMATIC (Temporal wasting ) - Eye Exam Eye Exam: PERRL. absent: Scleral icterus - ENT Exam ENT Exam: Normal External Ear Exam - Neck Exam Neck Exam: absent: Thyromegaly - Respiratory Exam Respiratory Exam: Clear to Ausculation Bilateral (On ventilator ) - Cardiovascular Exam Cardiovascular Exam: REGULAR RHYTHM, RRR, +S1, +S2 (NO LE edema ). absent: JVD - GI/Abdominal Exam GI & Abdominal Exam: Normal Bowel Sounds. absent: Organomegaly Assessment and Plan - Assessment and Plan (Free Text) Assessment: 86 year old female with COPD exacerbation on mechanical ventilator which appears to be improving. Extubate as per primary team; Continue abx, steroids Nicotine addiction now on tiffanie derm Minimal troponin with mild hypokinesis of anterior lateral wall on 2D echo, I recommended she undergo cardiac catheterization to define her coronary anatomy. She is refusing this procedure and wants a more conservative strategy. If there is no obvious contraindication I would load with plavix 300mg po x 1 dose then 75mg po daily; Continue asprin; Add a high dose statin HTN likely chronic monitor BP and consider either ARB or coreg after she is extubated 11:37 - 12:25pm.
--- NOTE | 2016-09-25 14:25 | CP.PCM.HP ---
History of Present Illness - History of Present Illness History of Present Illness: CHEIF COMPLAIN; AMS HPI; 86yo F. PMHx Smoker, most likely with COPD. p/w AMS secondary to hypercarbia. Orally Intubated in ED with rapid resolution of mental status. Sedated for control while on vent. pt is on ventilaotor and detailed history unable to obtain.Pt is confused, no family around, PcO2 was 80%, she woke up after Co2 level went down. She was found to have abnormal troponin and cardiology was consult for NSTEMI. Patient was examined while intubated but awake. She denies angina. Present on Admission - Present on Admission Any Indicators Present on Admission: No Review of Systems - Review of Systems Systems not reviewed;Unavailable: Unstable Vital Signs, Respiratory Distress, Altered Mental Status Past Patient History - Past Medical History & Family History Past Medical History?: No - Past Social History Smoking Status: Current Some Days Smoker - CARDIAC Hx Hypertension: Yes - PULMONARY Hx Chronic Obstructive Pulmonary Disease (COPD): Yes - ENDOCRINE/METABOLIC Hx Hypothyroidism: Yes - MUSCULOSKELETAL/RHEUMATOLOGICAL Hx Falls: No (unknown) - PSYCHIATRIC Hx Substance Use: Yes - SURGICAL HISTORY Hx Surgeries: No (UNOBTAINABLE) - ANESTHESIA Hx Anesthesia: No Hx Anesthesia Reactions: No Hx Malignant Hyperthermia: No Has any member of the family had a problem w/ anesthesia?: No Meds Home Medications: Home Medication List Medication Instructions Recorded Confirmed Type Albuterol/Ipratropium [Duoneb 3 3 ml INH RQ6 neb 10/31/16 Rx mg/0.5 mg (3 ml) UD] Budesonide [Pulmicort Respules] 0.5 mg INH RQ12 neb 10/31/16 Rx Dextran/Glycerin/Hypromel [Tears 2 ml OU BID bottle 10/31/16 Rx Naturale Forte] Famotidine [Pepcid] 20 mg PO DAILY tab 10/31/16 Rx [id number] [Cardizem] 60 mg GT QID tab 10/31/16 Rx Allergies/Adverse Reactions: Allergies Allergy/AdvReac Type Severity Reaction Status Date / Time No Known Allergies Allergy Verified 09/24/16 15:06 Physical Exam - Constitutional Appears: In Acute Distress Additional comments: intubated orally, opens her eyes, - Head Exam Head Exam: ATRAUMATIC, NORMAL INSPECTION, NORMOCEPHALIC - Eye Exam Eye Exam: EOMI, Normal appearance, PERRL Pupil Exam: NORMAL ACCOMODATION, PERRL Additional comments: neg pallor - ENT Exam ENT Exam: Mucous Membranes Moist, Normal Oropharynx Additional comments: no thrush - Neck Exam Neck exam: Positive for: Normal Inspection - Respiratory Exam Respiratory Exam: Decreased Breath Sounds, Rhonchi Additional comments: no deformity no masses chest wall - Cardiovascular Exam Cardiovascular Exam: REGULAR RHYTHM Additional comments: in resp distres 2/6 esm - GI/Abdominal Exam GI & Abdominal Exam: Normal Bowel Sounds, Soft. absent: Tenderness - Extremities Exam Extremities exam: Positive for: normal inspection - Neurological Exam Neurological exam: Altered - Psychiatric Exam Psychiatric exam: Normal Affect - Skin Additional comments: senile turgor, no purpura, no erythema Results - Vital Signs Recent Vital Signs: Last Vital Signs Temp 98.6 F 09/25/16 12:00 Pulse 95 H 09/25/16 14:14 Resp 15 09/25/16 14:14 BP 138/73 09/25/16 14:14 Pulse Ox 95 09/25/16 14:14 - Labs Result Diagrams: 10/27/16 06:08 10/30/16 06:48 Labs: Laboratory Results - last 24 hr 09/24/16 09/25/16 09/25/16 18:00 00:29 04:58 WBC RBC Hgb Hct MCV MCH MCHC RDW Plt Count MPV Neut % (Auto) Lymph % (Auto) [place] % (Auto) Eos % (Auto) Baso % (Auto) Neut # Lymph # [place] # Eos # Baso # Neutrophils % (Manual) Band Neutrophils % Lymphocytes % (Manual) Monocytes % (Manual) Platelet Estimate RBC Morphology Puncture Site pCO2 pO2 HCO3 ABG pH ABG Total CO2 ABG O2 Saturation ABG Base Excess ABG Hemoglobin ABG Carboxyhemoglobin POC ABG HHb (Measured) ABG Methemoglobin Fish Test A-a O2 Difference Respiratory Index Hgb O2 Saturation Mechanical Rate FiO2 Tidal Volume PEEP Sodium Potassium Chloride Carbon Dioxide Anion Gap BUN Creatinine Est GFR ( Amer) Est GFR (Non-Af Amer) POC Glucose (mg/dL) 141 H 165 H 165 H Random Glucose Calcium Phosphorus Magnesium Total Bilirubin AST ALT Alkaline Phosphatase Total Protein Albumin Globulin Albumin/Globulin Ratio 09/25/16 09/25/16 09/25/16 05:09 06:50 11:53 WBC 9.1 RBC 4.20 Hgb 12.9 Hct 38.2 MCV 91.0 MCH 30.7 MCHC 33.8 RDW 14.8 H Plt Count 180 MPV 9.5 Neut % (Auto) 86.8 H Lymph % (Auto) 6.8 L [place] % (Auto) 6.3 Eos % (Auto) 0.0 Baso % (Auto) 0.1 Neut # 7.9 H Lymph # 0.6 L [place] # 0.6 Eos # 0.0 Baso # 0.0 Neutrophils % (Manual) 74 Band Neutrophils % 14 H* Lymphocytes % (Manual) 6 L Monocytes % (Manual) 6 Platelet Estimate Normal RBC Morphology Normal Puncture Site Rr pCO2 53 H pO2 113 H HCO3 23.0 ABG pH 7.28 L ABG Total CO2 26.5 ABG O2 Saturation 98.9 H ABG Base Excess -2.5 L ABG Hemoglobin 12.7 ABG Carboxyhemoglobin 1.4 POC ABG HHb (Measured) 1.1 ABG Methemoglobin 1.1 Fish Test Pos A-a O2 Difference 177.0 Respiratory Index 1.6 Hgb O2 Saturation 96.4 Mechanical Rate 14 FiO2 50.0 Tidal Volume 450 PEEP 5 Sodium 141 Potassium 4.0 Chloride 102 Carbon Dioxide 25 Anion Gap 18 BUN 41 H Creatinine 1.4 H Est GFR ( Amer) 43 Est GFR (Non-Af Amer) 36 POC Glucose (mg/dL) 147 H Random Glucose 169 H Calcium 7.2 L Phosphorus 4.2 Magnesium 2.2 Total Bilirubin 0.5 AST 61 H D ALT 35 Alkaline Phosphatase 49 Total Protein 6.2 L Albumin 3.0 L Globulin 3.2 Albumin/Globulin Ratio 0.9 L Assessment & Plan (1) Acute respiratory failure with hypoxia and hypercarbia Assessment and Plan: PCO2 of 80 % initially after intubation, subsequently CO2 level went down pt is orally intubated Status: Resolved (2) Altered mental status Status: Resolved (3) Acute [place] Status: Acute Comment: BORDERLINE TROPONINS. RULE OUT TX. CARDIOLOGY EVAL
[2016-09-25] MEDS: Azithromycin 500 MG in Sodium Chloride 0.9% 250 ML IVPB SCH (21:21)
[2016-09-25] MEDS: cefTRIAXone 2 GM in Sodium Chloride 0.9% 100 ML IVPB SCH (23:30)
[2016-09-26] MEDS: Sodium Chloride 0.9% 1,000 ML IV SCH ×5 (00:19→18:38)
[2016-09-26] MEDS: Albuterol-Ipratrop 3 mg / 0.5 (3 ml) UD INH SCH ×6 (03:05→23:47)
[2016-09-26 05:32] LABS: ABG ALLEN TEST POS; ABG MECHANICAL RATE 14; ATERIAL BLOOD GAS PEEP 5; DRAW SITE RR
[2016-09-26 06:51] LABS: BASO % 0.2 % (0.0-2.0); HEMATOCRIT 38.8 % (34.0-47.0); LYMPH # 0.4 K/uL (1.0-4.3); LYMPH % 5.7 % (20.0-40.0); MEAN CORPUSCULAR HGB CONC 33.3 g/dL (33.0-37.0); MEAN PLATELET VOLUME 9.5 fL (7.2-11.7); MONO # 0.4 K/uL (0.0-0.8); NRBC % 0.2 % (0.0-2.0); PLATELET COUNT 172 K/uL (130-400); RED CELL DISTRIBUTION WIDTH 15.1 % (11.5-14.5); WHITE BLOOD COUNT 7.5 K/uL (4.8-10.8)
[2016-09-26 06:56] LABS: POTASSIUM 4.1 mmol/L (3.6-5.2)
[2016-09-26 06:58] LABS: ALB/GLOB RATIO 0.9 (1.0-2.1); BILIRUBIN,TOTAL 0.5 mg/dL (0.2-1.3)
[2016-09-26 06:59] LABS: CALCIUM 7.5 mg/dl (8.6-10.4); MAGNESIUM 2.3 mg/dL (1.6-2.3); PHOSPHOROUS 3.6 mg/dL (2.5-4.5)
[2016-09-26] MEDS: MethylPREDNISolone 40 mg Vial IV SCH ×3 (07:19→21:08)
[2016-09-26 08:48] LABS: NEUTROPHIL 81 % (50-75); TOTAL CELLS COUNTED 100
[2016-09-26] MEDS: Sucralfate 1 gm/10 ml Oral Susp UD PO SCH (10:12)
--- NOTE | 2016-09-26 10:44 | CP.PCM.CON ---
History of Present Illness - History of Present Illness History of Present Illness: Reason for consultation: respiratory failure on ventilatory support This is an 86 y/o female with a suspected PMH of smoking, COPD, and HTN presenting with respiratory failure and hypercarbic encephalopathy, intubated in the ER and transferred to ICU.. Patient also found to have elevated troponins. Echocardiogram showed normal LV function. Multiple attempts to wean her off the ventilator failed. Patient awake and following commands. Afebrile. Review of Systems - Review of Systems Systems not reviewed;Unavailable: Intubated Past Patient History - Past Medical History & Family History Past Medical History?: No - Past Social History Smoking Status: Current Some Days Smoker - CARDIAC Hx Hypertension: Yes - PULMONARY Hx Chronic Obstructive Pulmonary Disease (COPD): Yes - ENDOCRINE/METABOLIC Hx Hypothyroidism: Yes - MUSCULOSKELETAL/RHEUMATOLOGICAL Hx Falls: No (unknown) - PSYCHIATRIC Hx Substance Use: Yes - SURGICAL HISTORY Hx Surgeries: No (UNOBTAINABLE) - ANESTHESIA Hx Anesthesia: No Hx Anesthesia Reactions: No Hx Malignant Hyperthermia: No Has any member of the family had a problem w/ anesthesia?: No Meds Allergies/Adverse Reactions: Allergies Allergy/AdvReac Type Severity Reaction Status Date / Time No Known Allergies Allergy Verified 09/24/16 15:06 - Medications Medications: Current Medications Albuterol/Ipratropium (Duoneb 3 Mg/0.5 Mg (3 Ml) Ud) 3 ml INH RQ4 [facility] Last Admin: 09/26/16 07:32 Dose: 3 ml Aspirin (Aspirin Chewable) 81 mg PO DAILY [facility] Last Admin: 09/26/16 10:14 Dose: 81 mg Clopidogrel Bisulfate (Plavix) 75 mg PO DAILY [facility] Last Admin: 09/26/16 10:13 Dose: 75 mg Enoxaparin Sodium (Lovenox) 40 mg SC DAILY [facility] Ceftriaxone Sodium 2 gm/ (Sodium Chloride) 100 mls @ 100 mls/hr IVPB Q24H [facility] Last Admin: 09/25/16 23:30 Dose: 100 mls/hr Azithromycin 500 mg/ Sodium (Chloride) 250 mls @ 250 mls/hr IVPB Q24H [facility] Last Admin: 09/25/16 21:21 Dose: 250 mls/hr Sodium Chloride (Sodium Chloride 0.9%) 1,000 mls @ 100 mls/hr IV .Q10H [facility] Last Admin: 09/26/16 07:25 Dose: Not Given Methylprednisolone (Solu-Medrol) 40 mg IV Q8 [facility] Last Admin: 09/26/16 07:19 Dose: 40 mg Midazolam HCl (Versed Inj) 2 mg IVP Q4H PRN PRN Reason: Agitation Nicotine (Nicoderm Cq) 1 patch TD DAILY [facility] Last Admin: 09/25/16 10:35 Dose: 1 patch Rosuvastatin Calcium (Crestor) 10 mg PO HS [facility] Last Admin: 09/25/16 21:19 Dose: 10 mg Sucralfate (Carafate Oral Susp) 1 gm PO DAILY [facility] Last Admin: 09/26/16 10:12 Dose: 1 gm Physical Exam - Head Exam Head Exam: ATRAUMATIC, NORMOCEPHALIC - Eye Exam Eye Exam: Normal appearance - ENT Exam ENT Exam: Mucous Membranes Moist - Neck Exam Neck exam: Positive for: Normal Inspection - Respiratory Exam Respiratory Exam: Decreased Breath Sounds - Cardiovascular Exam Cardiovascular Exam: REGULAR RHYTHM - GI/Abdominal Exam GI & Abdominal Exam: Normal Bowel Sounds, Soft - Extremities Exam Extremities exam: Positive for: normal inspection Results - Vital Signs Recent Vital Signs: Last Vital Signs Temp 98.6 F 09/26/16 08:00 Pulse 76 09/26/16 10:00 Resp 16 09/26/16 10:00 BP 158/73 H 09/26/16 09:29 Pulse Ox 96 09/26/16 10:00 - Labs Result Diagrams: 09/26/16 06:39 09/26/16 06:39 Labs: Laboratory Results - last 24 hr 09/25/16 09/25/16 09/25/16 04:58 11:53 18:01 WBC RBC Hgb Hct MCV MCH MCHC RDW Plt Count MPV Neut % (Auto) Lymph % (Auto) [place] % (Auto) Eos % (Auto) Baso % (Auto) Neut # Lymph # [place] # Eos # Baso # Neutrophils % (Manual) Band Neutrophils % Lymphocytes % (Manual) Monocytes % (Manual) Platelet Estimate RBC Morphology Puncture Site pCO2 pO2 HCO3 ABG pH ABG Total CO2 ABG O2 Saturation ABG Base Excess Fish Test ABG Potassium A-a O2 Difference Respiratory Index Sodium Chloride Glucose Lactate Mechanical Rate FiO2 Tidal Volume PEEP Potassium Carbon Dioxide Anion Gap BUN Creatinine Est GFR ( Amer) Est GFR (Non-Af Amer) POC Glucose (mg/dL) 165 H 147 H 158 H Random Glucose Calcium Phosphorus Magnesium Total Bilirubin AST ALT Alkaline Phosphatase Total Protein Albumin Globulin Albumin/Globulin Ratio Arterial Blood Potassium 09/26/16 09/26/16 09/26/16 00:21 05:15 06:15 WBC RBC Hgb Hct MCV MCH MCHC RDW Plt Count MPV Neut % (Auto) Lymph % (Auto) [place] % (Auto) Eos % (Auto) Baso % (Auto) Neut # Lymph # [place] # Eos # Baso # Neutrophils % (Manual) Band Neutrophils % Lymphocytes % (Manual) Monocytes % (Manual) Platelet Estimate RBC Morphology Puncture Site Rr pCO2 50 H pO2 85 HCO3 22.0 ABG pH 7.28 L ABG Total CO2 25.0 ABG O2 Saturation 98.0 ABG Base Excess -3.7 L Fish Test Pos ABG Potassium 4.0 A-a O2 Difference 209.0 Respiratory Index 2.5 Sodium 144.0 Chloride 117.0 H Glucose 170 H Lactate 0.6 L Mechanical Rate 14 FiO2 50.0 Tidal Volume 450 PEEP 5 Potassium Carbon Dioxide Anion Gap BUN Creatinine Est GFR ( Amer) Est GFR (Non-Af Amer) POC Glucose (mg/dL) 156 H 171 H Random Glucose Calcium Phosphorus Magnesium Total Bilirubin AST ALT Alkaline Phosphatase Total Protein Albumin Globulin Albumin/Globulin Ratio Arterial Blood Potassium 4.0 09/26/16 06:39 WBC 7.5 RBC 4.17 Hgb 12.9 Hct 38.8 MCV 93.0 D MCH 31.0 MCHC 33.3 RDW 15.1 H Plt Count 172 MPV 9.5 Neut % (Auto) 89.1 H Lymph % (Auto) 5.7 L [place] % (Auto) 5.0 Eos % (Auto) 0.0 Baso % (Auto) 0.2 Neut # 6.7 Lymph # 0.4 L [place] # 0.4 Eos # 0.0 Baso # 0.0 Neutrophils % (Manual) 81 H Band Neutrophils % 6 H Lymphocytes % (Manual) 6 L Monocytes % (Manual) 7 Platelet Estimate Normal RBC Morphology Normal Puncture Site pCO2 pO2 HCO3 ABG pH ABG Total CO2 ABG O2 Saturation ABG Base Excess Fish Test ABG Potassium A-a O2 Difference Respiratory Index Sodium 143 Chloride 107 Glucose Lactate Mechanical Rate FiO2 Tidal Volume PEEP Potassium 4.1 Carbon Dioxide 22 Anion Gap 18 BUN 41 H Creatinine 1.3 H Est GFR ( Amer) 47 Est GFR (Non-Af Amer) 39 POC Glucose (mg/dL) Random Glucose 184 H Calcium 7.5 L Phosphorus 3.6 Magnesium 2.3 Total Bilirubin 0.5 AST 44 H D ALT 38 Alkaline Phosphatase 47 Total Protein 6.0 L Albumin 2.8 L Globulin 3.2 Albumin/Globulin Ratio 0.9 L Arterial Blood Potassium Assessment & Plan (1) Acute respiratory failure with hypoxia and hypercarbia Status: Acute Comment: Acute hypercapnic respiratory failure most likely secondary to COPD exacerbation. Continue IV steroids and nebulizer treatment. Continue weaning. Sedation vacation. Seen by cardiology (2) Acute [place] Status: Acute
--- NOTE | 2016-09-26 11:08 | CP.PCM.PN ---
Subjective - Date & Time of Evaluation Date of Evaluation: 09/25/16 Time of Evaluation: 12:24 - Subjective Subjective: Pt seen & evaluated at bedside, remains on MV shala to FIO2 of 50%, is more awake and alert, neighbour at bedside, still we dont have any PMH avaialable, was evaluated by cardiology too Objective - Vital Signs/Intake and Output Vital Signs (last 24 hours): Temp Pulse Resp BP Pulse Ox 98.6 F 76 16 158/73 H 96 09/26/16 08:00 09/26/16 10:00 09/26/16 10:00 09/26/16 09:29 09/26/16 10:00 Intake and Output: 09/26/16 09/26/16 06:59 18:59 Intake Total 1754.4 399.4 Output Total 255 130 Balance 1499.4 269.4 - Medications Medications: Current Medications Albuterol/Ipratropium (Duoneb 3 Mg/0.5 Mg (3 Ml) Ud) 3 ml INH RQ4 [facility] Last Admin: 09/26/16 07:32 Dose: 3 ml Aspirin (Aspirin Chewable) 81 mg PO DAILY [facility] Last Admin: 09/26/16 10:14 Dose: 81 mg Clopidogrel Bisulfate (Plavix) 75 mg PO DAILY [facility] Last Admin: 09/26/16 10:13 Dose: 75 mg Enoxaparin Sodium (Lovenox) 40 mg SC DAILY [facility] Ceftriaxone Sodium 2 gm/ (Sodium Chloride) 100 mls @ 100 mls/hr IVPB Q24H [facility] Last Admin: 09/25/16 23:30 Dose: 100 mls/hr Azithromycin 500 mg/ Sodium (Chloride) 250 mls @ 250 mls/hr IVPB Q24H [facility] Last Admin: 09/25/16 21:21 Dose: 250 mls/hr Sodium Chloride (Sodium Chloride 0.9%) 1,000 mls @ 100 mls/hr IV .Q10H [facility] Last Admin: 09/26/16 07:25 Dose: Not Given Methylprednisolone (Solu-Medrol) 40 mg IV Q8 [facility] Last Admin: 09/26/16 07:19 Dose: 40 mg Midazolam HCl (Versed Inj) 2 mg IVP Q4H PRN PRN Reason: Agitation Nicotine (Nicoderm Cq) 1 patch TD DAILY [facility] Last Admin: 09/26/16 11:00 Dose: 1 patch Rosuvastatin Calcium (Crestor) 10 mg PO HS [facility] Last Admin: 09/25/16 21:19 Dose: 10 mg Sucralfate (Carafate Oral Susp) 1 gm PO DAILY [facility] Last Admin: 09/26/16 10:12 Dose: 1 gm - Labs Labs: 09/26/16 06:39 09/26/16 06:39 PT 11.2 SECONDS (9.7-12.2) 09/23/16 19:22 INR 1.0 09/23/16 19:22 APTT 35 SECONDS (21-34) H 09/23/16 19:22 - Constitutional Appears: No Acute Distress - Head Exam Head Exam: ATRAUMATIC, NORMAL INSPECTION, NORMOCEPHALIC - Eye Exam Eye Exam: EOMI, Normal appearance, PERRL Pupil Exam: NORMAL ACCOMODATION, PERRL - Respiratory Exam Respiratory Exam: Decreased Breath Sounds Additional comments: on MV - Cardiovascular Exam Cardiovascular Exam: REGULAR RHYTHM, +S1, +S2. absent: Murmur - GI/Abdominal Exam GI & Abdominal Exam: Soft, Normal Bowel Sounds. absent: Tenderness - Neurological Exam Neurological Exam: Alert, Awake Assessment and Plan (1) Acute respiratory failure with hypoxia and hypercarbia Status: Resolved (2) Altered mental status Status: Resolved (3) Acute [place] Status: Acute
--- NOTE | 2016-09-26 11:49 | CT ---
PROCEDURE: CT Chest without contrast HISTORY: pneumonia COMPARISON: Multiple serial chest x-ray examinations preceding the most recent study: September 26, 2016. Performed at 06:35 TECHNIQUE: Contiguous axial images were obtained through the chest without intravenous contrast enhancement. Sagittal and coronal reconstructions were performed. Radiation dose (DLP): 561.04 mGy-cm. FINDINGS: LUNGS: Atelectasis related to small pleural effusions bilaterally. New line hyperinflation/manifestations COPD. Prominence of central tracheobronchial tree likely lower airway disease without appreciable mucous plugging. MEDIASTINUM: Unremarkable thoracic aorta. No aneurysm. Normal sized heart. Main pulmonary artery unremarkable. No vascular congestion. No lymphadenopathy. PLEURA: No pleural fluid. No pneumothorax. BONES: Loss of height T8 vertebral body likely old, osteopenic compression fracture evidence of kyphoplasty T12 vertebral body. UPPER ABDOMEN: Grossly unremarkable.Incidental finding(s): Visualized cyst in the left kidney. Incompletely OTHER FINDINGS: Satisfactory position of support apparatus including endotracheal tube and nasogastric tube. Endotracheal tube tip 2.8 cm above the vicente. Nasogastric tube in a decompressed stomach. IMPRESSION: Small pleural effusions in atelectasis likely compressive bilaterally. Otherwise no significant pulmonary abnormalities. Underlying COPD and evidence of lower airway disease. Satisfactory position of support apparatus. Additional benign and/or incidental findings described above.
--- NOTE | 2016-09-26 11:51 | RAD ---
HISTORY: ET Tube Eval COMPARISON: 09/25/2016 FINDINGS: LUNGS: Lines and tubes in stable position. Biapical pleural thickening with upper lobe granulomatous changes. Mild venous congestion. Chronic interstitial lung markings. Bibasilar airspace opacities. PLEURA: As above. CARDIOVASCULAR: Cardiomegaly. Calcification at the aortic knob. OSSEOUS STRUCTURES: No significant abnormalities. VISUALIZED UPPER ABDOMEN: Normal. OTHER FINDINGS: None. IMPRESSION: Lines and tubes in stable position. Biapical pleural thickening with upper lobe granulomatous changes. Mild venous congestion. Chronic interstitial lung markings. Bibasilar airspace opacities.
[2016-09-26 11:52] LABS: CARBOXYHEMOGLOBIN 1.8 % (0.5-1.5); DRAW SITE RB; METHEMOGLOBIN 1.1 % (0.0-3.0)
[2016-09-26] MEDS: Enoxaparin 40 mg Syringe SC SCH (13:07)
--- NOTE | 2016-09-26 14:01 | CP.CCUPN ---
<Fabian Levy - Last Filed: 09/26/16 13:51> CCU Subjective - Physician Review Subjective (Free Text): 09/24/16 13:39 Patient was seen and examined at bedside. No acute distress on ventilator. No acute events overnight. Nursing staff reports no issues. Patient is resting comfortably on the bed, maintained on a propofol drip 10mcg/kg/min. Patient is lethargic but awakens to voice, follows command. Denies any pain or complaints aside from the ventilator. Hypercarbia has improved on todays ABG. 09/25/16 10:20 Patient was seen and examined at bedside. No acute distress on ventilator. No acute events overnight. Nursing staff reports no issues. Patient is resting comfortably on the bed. Patient is on cPAP. Patient is planned for extubation today. Hypercarbia has stabilized. Patient is likely at her baseline. Today, nicotine patch was ordered and a fluid challenge (250cc bolus) due to acute rise in BUN/Cr. 09/26/16 13:51 Patient was seen and examined at bedside. No acute distress on ventilator. No acute events overnight. Patient was trialed on CPAP yesterday [id number]. Patient had poor inspiratory volumes and was placed back on vent. The patient was again tried on CPAP this morning but could not maintain adequate tidal volume. The patient was placed back on the ventilator at an increased rate to decrease her PCO2. Today, the patients respiratory rate was increased to 16. A CT of the Chest was ordered. Feeds were restarted, and lovenox 40mg sc daily was started for dvt prophylaxis. Critical Care Time Spent (in minutes): 60 CCU Objective - Vital Signs / Intake & Output Vital Signs (Last 4 hours): Vital Signs Temp Pulse Resp BP Pulse Ox 09/26/16 13:29 82 13 150/87 95 09/26/16 13:00 76 16 95 09/26/16 12:28 74 15 162/88 H 95 09/26/16 12:00 98.3 F 96 H 93 L 09/26/16 11:29 92 H 25 H 166/83 H 97 09/26/16 11:00 93 H 25 H 96 09/26/16 10:49 94 H 09/26/16 10:00 76 16 96 Intake and Output (Last 8hrs): Intake & Output 0309/26/16 09/26/16 22:59 06:59 14:59 Intake Total 1155.1 1149.3 699.4 Output Total 275 110 225 Balance 880.1 1039.3 474.4 Weight 73 kg Intake: Intake, IV Amount 885.1 909.3 429.4 Right Forearm 850 800 400 Left Forearm 35.1 109.3 29.4 Tube Feeding 240 240 270 Other 30 Output: Urine 275 110 225 Urethral (Antony) 275 110 225 Other: # Bowel Movements 1 - Physical Exam Head: Positive for: Atraumatic, Normocephalic, Other (ET Tube in place) Pupils: Positive for: PERRL Mouth: Positive for: Dry Respiratory/Chest: Positive for: Clear to Auscultation, Good Air Exchange, Rales. Negative for: Respiratory Distress Cardiovascular: Positive for: Regular Rate and Rhythm, Normal S1, S2. Negative for: Murmurs Abdomen: Positive for: Normal Bowel Sounds. Negative for: Tenderness, Distention Upper Extremity: Positive for: Normal Inspection. Negative for: Cyanosis, Edema Lower Extremity: Positive for: Normal Inspection. Negative for: Edema, CALF TENDERNESS Skin: Positive for: Warm, Dry Psychiatric: Positive for: Alert - Medications Active Medications: Active Medications Generic Name Dose Route Start Last Admin Trade Name Freq PRN Reason Stop Dose Admin Albuterol/Ipratropium 3 ml 09/23/16 22:00 09/26/16 11:14 Duoneb 3 Mg/0.5 Mg (3 Ml) Ud INH 3 ml RQ4 KAILA Administration Aspirin 81 mg 09/24/16 18:30 09/26/16 10:14 Aspirin Chewable PO 81 mg DAILY KAILA Administration Clopidogrel Bisulfate 75 mg 09/26/16 10:00 09/26/16 10:13 Plavix PO 75 mg DAILY KAILA Administration Enoxaparin Sodium 40 mg 09/26/16 13:00 09/26/16 13:07 Lovenox SC 40 mg DAILY KAILA Administration Ceftriaxone Sodium 2 gm/ 100 mls @ 100 mls/hr 09/23/16 23:30 09/25/16 23:30 Sodium Chloride IVPB 100 mls/hr Q24H KAILA Administration Azithromycin 500 mg/ Sodium 250 mls @ 250 mls/hr 09/23/16 22:15 09/25/16 21:21 Chloride IVPB 250 mls/hr Q24H KAILA Administration Sodium Chloride 1,000 mls @ 100 mls/hr 09/24/16 14:15 09/26/16 13:47 Sodium Chloride 0.9% IV 100 mls/hr .Q10H KAILA Administration Methylprednisolone 40 mg 09/24/16 06:00 09/26/16 13:06 Solu-Medrol IV 40 mg Q8 KAILA Administration Midazolam HCl 2 mg 09/26/16 09:26 Versed Inj IVP Q4H PRN Agitation Nicotine 1 patch 09/25/16 10:00 09/26/16 11:00 Nicoderm Cq TD 1 patch DAILY KAILA Administration Rosuvastatin Calcium 10 mg 09/23/16 22:00 09/25/16 21:19 Crestor PO 10 mg HS KAILA Administration Sucralfate 1 gm 09/24/16 10:00 09/26/16 10:12 Carafate Oral Susp PO 1 gm DAILY KAILA Administration - Patient Studies Lab Studies: Microbiology Studies 09/23/16 23:01 MRSA Culture (Admit) - Final Nose MRSA NOT DETECTED 09/23/16 Unknown Urine Culture - Final Urine No Growth (<1,000 CFU/ML) Lab Studies 09/26/16 09/26/16 09/26/16 Range/Units 11:45 11:26 06:39 WBC 7.5 (4.8-10.8) K/uL RBC 4.17 (3.80-5.20) Mil/uL Hgb 12.9 (11.0-16.0) g/dL Hct 38.8 (34.0-47.0) % MCV 93.0 D (81.0-99.0) fL MCH 31.0 (27.0-31.0) pg MCHC 33.3 (33.0-37.0) g/dL RDW 15.1 H (11.5-14.5) % Plt Count 172 (130-400) K/uL MPV 9.5 (7.2-11.7) fL Neut % (Auto) 89.1 H (50.0-75.0) % Lymph % (Auto) 5.7 L (20.0-40.0) % Love % (Auto) 5.0 (0.0-10.0) % Eos % (Auto) 0.0 (0.0-4.0) % Baso % (Auto) 0.2 (0.0-2.0) % Neut # 6.7 (1.8-7.0) K/uL Lymph # 0.4 L (1.0-4.3) K/uL Love # 0.4 (0.0-0.8) K/uL Eos # 0.0 (0.0-0.7) K/uL Baso # 0.0 (0.0-0.2) K/uL Neutrophils % (Manual) 81 H (50-75) % Band Neutrophils % 6 H (0-2) % Lymphocytes % (Manual) 6 L (20-40) % Monocytes % (Manual) 7 (0-10) % Platelet Estimate Normal (NORMAL) RBC Morphology Normal Puncture Site Rb pCO2 57 H (35-45) mm/Hg pO2 65 L (80-100) mm/Hg HCO3 21.8 (21-28) mmol/L ABG pH 7.24 L (7.35-7.45) ABG Total CO2 26.1 (22-28) mmol/L ABG O2 Saturation 94.8 L (95-98) % ABG Base Excess -3.8 L (-2.0-3.0) mmol/L ABG Hemoglobin 13.1 (11.7-17.4) g/dL ABG Carboxyhemoglobin 1.8 H (0.5-1.5) % POC ABG HHb (Measured) 5.0 (0.0-5.0) % ABG Methemoglobin 1.1 (0.0-3.0) % Fish Test Na ABG Potassium (3.6-5.2) mmol/L A-a O2 Difference 220.0 mm/Hg Respiratory Index 3.4 Hgb O2 Saturation 92.0 L (95.0-98.0) % Glucose (65-105) mg/dl Lactate (0.7-2.1) mmol/L Mechanical Rate FiO2 50.0 % Tidal Volume PEEP Pressure Support 10 CPAP 5 Sodium 143 (132-148) mmol/L Potassium 4.1 (3.6-5.2) mmol/L Chloride 107 (98-107) mmol/L Carbon Dioxide 22 (22-30) mmol/L Anion Gap 18 (10-20) BUN 41 H (7-17) mg/dL Creatinine 1.3 H (0.7-1.2) MG/DL Est GFR ( Amer) 47 Est GFR (Non-Af Amer) 39 POC Glucose (mg/dL) 161 H (65-110) mg/dL Random Glucose 184 H (65-105) mg/dL Calcium 7.5 L (8.6-10.4) mg/dl Phosphorus 3.6 (2.5-4.5) mg/dL Magnesium 2.3 (1.6-2.3) mg/dL Total Bilirubin 0.5 (0.2-1.3) mg/dL AST 44 H D (14-36) U/L ALT 38 (9-52) U/L Alkaline Phosphatase 47 (38-126) U/L Total Protein 6.0 L (6.3-8.3) g/dL Albumin 2.8 L (3.5-5.0) g/dL Globulin 3.2 (2.2-3.9) gm/dL Albumin/Globulin Ratio 0.9 L (1.0-2.1) Arterial Blood Potassium (3.6-5.2) mmol/L 09/26/16 09/26/16 09/26/16 Range/Units 06:15 05:15 00:21 WBC (4.8-10.8) K/uL RBC (3.80-5.20) Mil/uL Hgb (11.0-16.0) g/dL Hct (34.0-47.0) % MCV (81.0-99.0) fL MCH (27.0-31.0) pg MCHC (33.0-37.0) g/dL RDW (11.5-14.5) % Plt Count (130-400) K/uL MPV (7.2-11.7) fL Neut % (Auto) (50.0-75.0) % Lymph % (Auto) (20.0-40.0) % Love % (Auto) (0.0-10.0) % Eos % (Auto) (0.0-4.0) % Baso % (Auto) (0.0-2.0) % Neut # (1.8-7.0) K/uL Lymph # (1.0-4.3) K/uL Love # (0.0-0.8) K/uL Eos # (0.0-0.7) K/uL Baso # (0.0-0.2) K/uL Neutrophils % (Manual) (50-75) % Band Neutrophils % (0-2) % Lymphocytes % (Manual) (20-40) % Monocytes % (Manual) (0-10) % Platelet Estimate (NORMAL) RBC Morphology Puncture Site Rr pCO2 50 H (35-45) mm/Hg pO2 85 (80-100) mm/Hg HCO3 22.0 (21-28) mmol/L ABG pH 7.28 L (7.35-7.45) ABG Total CO2 25.0 (22-28) mmol/L ABG O2 Saturation 98.0 (95-98) % ABG Base Excess -3.7 L (-2.0-3.0) mmol/L ABG Hemoglobin (11.7-17.4) g/dL ABG Carboxyhemoglobin (0.5-1.5) % POC ABG HHb (Measured) (0.0-5.0) % ABG Methemoglobin (0.0-3.0) % Fish Test Pos ABG Potassium 4.0 (3.6-5.2) mmol/L A-a O2 Difference 209.0 mm/Hg Respiratory Index 2.5 Hgb O2 Saturation (95.0-98.0) % Glucose 170 H (65-105) mg/dl Lactate 0.6 L (0.7-2.1) mmol/L Mechanical Rate 14 FiO2 50.0 % Tidal Volume 450 PEEP 5 Pressure Support CPAP Sodium 144.0 (132-148) mmol/L Potassium (3.6-5.2) mmol/L Chloride 117.0 H (98-107) mmol/L Carbon Dioxide (22-30) mmol/L Anion Gap (10-20) BUN (7-17) mg/dL Creatinine (0.7-1.2) MG/DL Est GFR ( Amer) Est GFR (Non-Af Amer) POC Glucose (mg/dL) 171 H 156 H (65-110) mg/dL Random Glucose (65-105) mg/dL Calcium (8.6-10.4) mg/dl Phosphorus (2.5-4.5) mg/dL Magnesium (1.6-2.3) mg/dL Total Bilirubin (0.2-1.3) mg/dL AST (14-36) U/L ALT (9-52) U/L Alkaline Phosphatase (38-126) U/L Total Protein (6.3-8.3) g/dL Albumin (3.5-5.0) g/dL Globulin (2.2-3.9) gm/dL Albumin/Globulin Ratio (1.0-2.1) Arterial Blood Potassium 4.0 (3.6-5.2) mmol/L 09/25/16 Range/Units 18:01 WBC (4.8-10.8) K/uL RBC (3.80-5.20) Mil/uL Hgb (11.0-16.0) g/dL Hct (34.0-47.0) % MCV (81.0-99.0) fL MCH (27.0-31.0) pg MCHC (33.0-37.0) g/dL RDW (11.5-14.5) % Plt Count (130-400) K/uL MPV (7.2-11.7) fL Neut % (Auto) (50.0-75.0) % Lymph % (Auto) (20.0-40.0) % Love % (Auto) (0.0-10.0) % Eos % (Auto) (0.0-4.0) % Baso % (Auto) (0.0-2.0) % Neut # (1.8-7.0) K/uL Lymph # (1.0-4.3) K/uL Love # (0.0-0.8) K/uL Eos # (0.0-0.7) K/uL Baso # (0.0-0.2) K/uL Neutrophils % (Manual) (50-75) % Band Neutrophils % (0-2) % Lymphocytes % (Manual) (20-40) % Monocytes % (Manual) (0-10) % Platelet Estimate (NORMAL) RBC Morphology Puncture Site pCO2 (35-45) mm/Hg pO2 (80-100) mm/Hg HCO3 (21-28) mmol/L ABG pH (7.35-7.45) ABG Total CO2 (22-28) mmol/L ABG O2 Saturation (95-98) % ABG Base Excess (-2.0-3.0) mmol/L ABG Hemoglobin (11.7-17.4) g/dL ABG Carboxyhemoglobin (0.5-1.5) % POC ABG HHb (Measured) (0.0-5.0) % ABG Methemoglobin (0.0-3.0) % Fish Test ABG Potassium (3.6-5.2) mmol/L A-a O2 Difference mm/Hg Respiratory Index Hgb O2 Saturation (95.0-98.0) % Glucose (65-105) mg/dl Lactate (0.7-2.1) mmol/L Mechanical Rate FiO2 % Tidal Volume PEEP Pressure Support CPAP Sodium (132-148) mmol/L Potassium (3.6-5.2) mmol/L Chloride (98-107) mmol/L Carbon Dioxide (22-30) mmol/L Anion Gap (10-20) BUN (7-17) mg/dL Creatinine (0.7-1.2) MG/DL Est GFR ( Amer) Est GFR (Non-Af Amer) POC Glucose (mg/dL) 158 H (65-110) mg/dL Random Glucose (65-105) mg/dL Calcium (8.6-10.4) mg/dl Phosphorus (2.5-4.5) mg/dL Magnesium (1.6-2.3) mg/dL Total Bilirubin (0.2-1.3) mg/dL AST (14-36) U/L ALT (9-52) U/L Alkaline Phosphatase (38-126) U/L Total Protein (6.3-8.3) g/dL Albumin (3.5-5.0) g/dL Globulin (2.2-3.9) gm/dL Albumin/Globulin Ratio (1.0-2.1) Arterial Blood Potassium (3.6-5.2) mmol/L Laboratory Results - last 24 hr 09/25/16 09/26/16 09/26/16 18:01 00:21 05:15 WBC RBC Hgb Hct MCV MCH MCHC RDW Plt Count MPV Neut % (Auto) Lymph % (Auto) Love % (Auto) Eos % (Auto) Baso % (Auto) Neut # Lymph # Love # Eos # Baso # Neutrophils % (Manual) Band Neutrophils % Lymphocytes % (Manual) Monocytes % (Manual) Platelet Estimate RBC Morphology Puncture Site Rr pCO2 50 H pO2 85 HCO3 22.0 ABG pH 7.28 L ABG Total CO2 25.0 ABG O2 Saturation 98.0 ABG Base Excess -3.7 L ABG Hemoglobin ABG Carboxyhemoglobin POC ABG HHb (Measured) ABG Methemoglobin Fish Test Pos ABG Potassium 4.0 A-a O2 Difference 209.0 Respiratory Index 2.5 Hgb O2 Saturation Sodium 144.0 Chloride 117.0 H Glucose 170 H Lactate 0.6 L Mechanical Rate 14 FiO2 50.0 Tidal Volume 450 PEEP 5 Pressure Support CPAP Potassium Carbon Dioxide Anion Gap BUN Creatinine Est GFR ( Amer) Est GFR (Non-Af Amer) POC Glucose (mg/dL) 158 H 156 H Random Glucose Calcium Phosphorus Magnesium Total Bilirubin AST ALT Alkaline Phosphatase Total Protein Albumin Globulin Albumin/Globulin Ratio Arterial Blood Potassium 4.0 09/26/16 09/26/16 09/26/16 06:15 06:39 11:26 WBC 7.5 RBC 4.17 Hgb 12.9 Hct 38.8 MCV 93.0 D MCH 31.0 MCHC 33.3 RDW 15.1 H Plt Count 172 MPV 9.5 Neut % (Auto) 89.1 H Lymph % (Auto) 5.7 L Love % (Auto) 5.0 Eos % (Auto) 0.0 Baso % (Auto) 0.2 Neut # 6.7 Lymph # 0.4 L Love # 0.4 Eos # 0.0 Baso # 0.0 Neutrophils % (Manual) 81 H Band Neutrophils % 6 H Lymphocytes % (Manual) 6 L Monocytes % (Manual) 7 Platelet Estimate Normal RBC Morphology Normal Puncture Site pCO2 pO2 HCO3 ABG pH ABG Total CO2 ABG O2 Saturation ABG Base Excess ABG Hemoglobin ABG Carboxyhemoglobin POC ABG HHb (Measured) ABG Methemoglobin Fish Test ABG Potassium A-a O2 Difference Respiratory Index Hgb O2 Saturation Sodium 143 Chloride 107 Glucose Lactate Mechanical Rate FiO2 Tidal Volume PEEP Pressure Support CPAP Potassium 4.1 Carbon Dioxide 22 Anion Gap 18 BUN 41 H Creatinine 1.3 H Est GFR ( Amer) 47 Est GFR (Non-Af Amer) 39 POC Glucose (mg/dL) 171 H 161 H Random Glucose 184 H Calcium 7.5 L Phosphorus 3.6 Magnesium 2.3 Total Bilirubin 0.5 AST 44 H D ALT 38 Alkaline Phosphatase 47 Total Protein 6.0 L Albumin 2.8 L Globulin 3.2 Albumin/Globulin Ratio 0.9 L Arterial Blood Potassium 09/26/16 11:45 WBC RBC Hgb Hct MCV MCH MCHC RDW Plt Count MPV Neut % (Auto) Lymph % (Auto) Love % (Auto) Eos % (Auto) Baso % (Auto) Neut # Lymph # Love # Eos # Baso # Neutrophils % (Manual) Band Neutrophils % Lymphocytes % (Manual) Monocytes % (Manual) Platelet Estimate RBC Morphology Puncture Site Rb pCO2 57 H pO2 65 L HCO3 21.8 ABG pH 7.24 L ABG Total CO2 26.1 ABG O2 Saturation 94.8 L ABG Base Excess -3.8 L ABG Hemoglobin 13.1 ABG Carboxyhemoglobin 1.8 H POC ABG HHb (Measured) 5.0 ABG Methemoglobin 1.1 Fish Test Na ABG Potassium A-a O2 Difference 220.0 Respiratory Index 3.4 Hgb O2 Saturation 92.0 L Sodium Chloride Glucose Lactate Mechanical Rate FiO2 50.0 Tidal Volume PEEP Pressure Support 10 CPAP 5 Potassium Carbon Dioxide Anion Gap BUN Creatinine Est GFR ( Amer) Est GFR (Non-Af Amer) POC Glucose (mg/dL) Random Glucose Calcium Phosphorus Magnesium Total Bilirubin AST ALT Alkaline Phosphatase Total Protein Albumin Globulin Albumin/Globulin Ratio Arterial Blood Potassium Fingerstick Blood Sugar Results: 161 Review of Systems - Review of Systems Systems not reviewed;Unavailable: Intubated Critical Care Progress Note - Ventilator Checklist Head of Bed 30 Degrees: Yes - Vent Settings TIDAL VOLUME:: 450 RESP RATE:: 16 FIO2:: 50 Assessment/Plan - Assessment and Plan (Free Text) Assessment: This is an 86 y/o female with a suspected PMH of smoking, COPD, and HTN presenting with respiratory failure and hypercarbic encephalopathy. Today, plan for extubation and possible cath with Dr. Mendes. The patient will undergo a fluid challenge for acute rise in BUN/Cr. Patient failed trial of CPAP. Continue on vent with increased rate to resolve respiratory acidosis. CT Chest ordered and feeds have been restarted. Plan: Neuro: Patient awakens to voice and responds to command. Sedation discontinued Denies pain or discomfort 09/23/16 CT Head- Generalized atrophy. Nonspecific white matter changes. Nicotine patch 21mg ordered for tobacco abuse disorder Cardiovascular: Regular rate and rhythm Troponin- 0.2400 > 0.2480 > 0.2490 09/24/16 ECHO- LV normal systolic function, normal chamber size, mild/trace triscupid regurg 09/23/16 EKG- sinus tachycardia with PACs, low voltage QRS, possible anteroseptal infarct age undetermined- official read pending Suspect elevated troponin due to demand ischemia Rouvastatin 10mg po hs IVF- NS @ 100ml/hr Patient refusing cath 300mg Plavix loading dose given 09/25/16 75mg PO daily plavix Pulmonary: Solumedrol 40mg IV q8 Duoneb q4 Imagin09/26/16 CXR- Lines and tubes in stable position. Biapical pleural thickening with upper lobe granulomatous changes. Mild venous congestion. Chronic interstitial lung markings. Bibasilar airspace opacities 09/26/16 CT Chest- Small pleural effusions in atelectasis likely compressive bilaterally. Otherwise no significant pulmonary abnormalities. Underlying COPD and evidence of lower airway disease. Satisfactory position of support apparatus 09/25/16 CXR- ET tube in good position- official read pending 09/24/16 CXR- mild venous congestion 09/23/16 CXR- Probable Mach artifact with linear lucency in the left mid susie thorax. Mild venous congestion. Elevated right hemidiaphragm. Right hilar prominence. Endotracheal tube extending into the mid thoracic trachea. NG tube extending into the stomach. 09/23/16 CXR- Biapical pleural thickening with upper lobe granulomatous changes. Some airspace opacification at the right lung apex and right hilar region. Scattered nodularity in both lungs most predominant at the lung bases. Increased markings at the lung bases which may represent some patchy atelectasis. Ventilator settings: PRVC 16/1L/50/5 AB09/26/16 (11:45) pH 7.24, CO2 57, O2 65, HCO3 26.1 09/26/16 (05:09) pH 7.28, CO2 50, O2 85, HCO3 22 09/25/16 pH 7.28, CO2 53, O2 113, HCO3 23 09/24/16 pH 7.32, CO2 54, O2 352, HCO3 25.4 09/23/16 O2 345 09/23/16 pH 7.22, CO2 80, O2 377, HCO3 26.9 GI: Carafate 1g po daily Hematology: No leukocytosis Hgb/Hct stable Bandemia improving 14 > 6 Endocrine: maintain euglycemia HbA1c- 5.9 CK- 3005 IVF- NS @ 100ml/hr Renal: Actue rise in BUN/Cr: improving - continue IVF Hypokalemia- resolved Hypomagnesemia- resolved IVF- NS @ 100ml/hr ID: No leukocytosis U/A negative Day 4 Rocephin 2g IV daily- start 09/23/16 Day 3 Azithromycin 500mg IV daily- start 09/24/16 : None MSK: None GI Prophylaxis- Carafate 1g po daily DVT Prophylaxis- lovenox 40mg sc daily Tommie Colungandi PGY1 - Date & Time Date: 09/26/16 Time: 15:03 <Germain Quick - Last Filed: 09/26/16 16:38> CCU Objective - Vital Signs / Intake & Output Vital Signs (Last 4 hours): Vital Signs Pulse Resp BP Pulse Ox 09/26/16 14:28 91 H 21 157/82 H 93 L 09/26/16 14:00 110 H 13 94 L 09/26/16 13:37 82 16 96 09/26/16 13:29 82 13 150/87 95 09/26/16 13:00 76 16 95 Intake and Output (Last 8hrs): Intake & Output 09/26/16 09/26/16 09/26/16 06:59 14:59 22:59 Intake Total 1149.3 829.4 Output Total 110 300 Balance 1039.3 529.4 Weight 160 lb 14.999 oz Intake: Intake, IV Amount 909.3 529.4 Right Forearm 800 500 Left Forearm 109.3 29.4 Tube Feeding 240 300 Output: Urine 110 300 Urethral (Antony) 110 300 - Medications Active Medications: Active Medications Generic Name Dose Route Start Last Admin Trade Name Freq PRN Reason Stop Dose Admin Albuterol/Ipratropium 3 ml 09/23/16 22:00 09/26/16 15:45 Duoneb 3 Mg/0.5 Mg (3 Ml) Ud INH 3 ml RQ4 KAILA Administration Aspirin 81 mg 09/24/16 18:30 09/26/16 10:14 Aspirin Chewable PO 81 mg DAILY KAILA Administration Clopidogrel Bisulfate 75 mg 09/26/16 10:00 09/26/16 10:13 Plavix PO 75 mg DAILY KAILA Administration Enoxaparin Sodium 40 mg 09/26/16 13:00 09/26/16 13:07 Lovenox SC 40 mg DAILY KAILA Administration Ceftriaxone Sodium 2 gm/ 100 mls @ 100 mls/hr 09/23/16 23:30 09/25/16 23:30 Sodium Chloride IVPB 100 mls/hr Q24H KAILA Administration Azithromycin 500 mg/ Sodium 250 mls @ 250 mls/hr 09/23/16 22:15 09/25/16 21:21 Chloride IVPB 250 mls/hr Q24H KAILA Administration Sodium Chloride 1,000 mls @ 100 mls/hr 09/24/16 14:15 09/26/16 13:47 Sodium Chloride 0.9% IV 100 mls/hr .Q10H KAILA Administration Methylprednisolone 40 mg 09/24/16 06:00 09/26/16 13:06 Solu-Medrol IV 40 mg Q8 KAILA Administration Midazolam HCl 2 mg 09/26/16 09:26 09/26/16 14:02 Versed Inj IVP 2 mg Q4H PRN Administration Agitation Nicotine 1 patch 09/25/16 10:00 09/26/16 11:00 Nicoderm Cq TD 1 patch DAILY KAILA Administration Rosuvastatin Calcium 10 mg 09/23/16 22:00 09/25/16 21:19 Crestor PO 10 mg HS KAILA Administration Sucralfate 1 gm 09/24/16 10:00 09/26/16 10:12 Carafate Oral Susp PO 1 gm DAILY KAILA Administration - Patient Studies Lab Studies: Microbiology Studies 09/23/16 23:01 MRSA Culture (Admit) - Final Nose MRSA NOT DETECTED 09/23/16 Unknown Urine Culture - Final Urine No Growth (<1,000 CFU/ML) Lab Studies 09/26/16 09/26/16 09/26/16 Range/Units 11:45 11:26 06:39 WBC 7.5 (4.8-10.8) K/uL RBC 4.17 (3.80-5.20) Mil/uL Hgb 12.9 (11.0-16.0) g/dL Hct 38.8 (34.0-47.0) % MCV 93.0 D (81.0-99.0) fL MCH 31.0 (27.0-31.0) pg MCHC 33.3 (33.0-37.0) g/dL RDW 15.1 H (11.5-14.5) % Plt Count 172 (130-400) K/uL MPV 9.5 (7.2-11.7) fL Neut % (Auto) 89.1 H (50.0-75.0) % Lymph % (Auto) 5.7 L (20.0-40.0) % Love % (Auto) 5.0 (0.0-10.0) % Eos % (Auto) 0.0 (0.0-4.0) % Baso % (Auto) 0.2 (0.0-2.0) % Neut # 6.7 (1.8-7.0) K/uL Lymph # 0.4 L (1.0-4.3) K/uL Love # 0.4 (0.0-0.8) K/uL Eos # 0.0 (0.0-0.7) K/uL Baso # 0.0 (0.0-0.2) K/uL Neutrophils % (Manual) 81 H (50-75) % Band Neutrophils % 6 H (0-2) % Lymphocytes % (Manual) 6 L (20-40) % Monocytes % (Manual) 7 (0-10) % Platelet Estimate Normal (NORMAL) RBC Morphology Normal Puncture Site Rb pCO2 57 H (35-45) mm/Hg pO2 65 L (80-100) mm/Hg HCO3 21.8 (21-28) mmol/L ABG pH 7.24 L (7.35-7.45) ABG Total CO2 26.1 (22-28) mmol/L ABG O2 Saturation 94.8 L (95-98) % ABG Base Excess -3.8 L (-2.0-3.0) mmol/L ABG Hemoglobin 13.1 (11.7-17.4) g/dL ABG Carboxyhemoglobin 1.8 H (0.5-1.5) % POC ABG HHb (Measured) 5.0 (0.0-5.0) % ABG Methemoglobin 1.1 (0.0-3.0) % Fish Test Na ABG Potassium (3.6-5.2) mmol/L A-a O2 Difference 220.0 mm/Hg Respiratory Index 3.4 Hgb O2 Saturation 92.0 L (95.0-98.0) % Glucose (65-105) mg/dl Lactate (0.7-2.1) mmol/L Mechanical Rate FiO2 50.0 % Tidal Volume PEEP Pressure Support 10 CPAP 5 Sodium 143 (132-148) mmol/L Potassium 4.1 (3.6-5.2) mmol/L Chloride 107 (98-107) mmol/L Carbon Dioxide 22 (22-30) mmol/L Anion Gap 18 (10-20) BUN 41 H (7-17) mg/dL Creatinine 1.3 H (0.7-1.2) MG/DL Est GFR ( Amer) 47 Est GFR (Non-Af Amer) 39 POC Glucose (mg/dL) 161 H (65-110) mg/dL Random Glucose 184 H (65-105) mg/dL Calcium 7.5 L (8.6-10.4) mg/dl Phosphorus 3.6 (2.5-4.5) mg/dL Magnesium 2.3 (1.6-2.3) mg/dL Total Bilirubin 0.5 (0.2-1.3) mg/dL AST 44 H D (14-36) U/L ALT 38 (9-52) U/L Alkaline Phosphatase 47 (38-126) U/L Total Protein 6.0 L (6.3-8.3) g/dL Albumin 2.8 L (3.5-5.0) g/dL Globulin 3.2 (2.2-3.9) gm/dL Albumin/Globulin Ratio 0.9 L (1.0-2.1) Arterial Blood Potassium (3.6-5.2) mmol/L 09/26/16 09/26/16 09/26/16 Range/Units 06:15 05:15 00:21 WBC (4.8-10.8) K/uL RBC (3.80-5.20) Mil/uL Hgb (11.0-16.0) g/dL Hct (34.0-47.0) % MCV (81.0-99.0) fL MCH (27.0-31.0) pg MCHC (33.0-37.0) g/dL RDW (11.5-14.5) % Plt Count (130-400) K/uL MPV (7.2-11.7) fL Neut % (Auto) (50.0-75.0) % Lymph % (Auto) (20.0-40.0) % Love % (Auto) (0.0-10.0) % Eos % (Auto) (0.0-4.0) % Baso % (Auto) (0.0-2.0) % Neut # (1.8-7.0) K/uL Lymph # (1.0-4.3) K/uL Love # (0.0-0.8) K/uL Eos # (0.0-0.7) K/uL Baso # (0.0-0.2) K/uL Neutrophils % (Manual) (50-75) % Band Neutrophils % (0-2) % Lymphocytes % (Manual) (20-40) % Monocytes % (Manual) (0-10) % Platelet Estimate (NORMAL) RBC Morphology Puncture Site Rr pCO2 50 H (35-45) mm/Hg pO2 85 (80-100) mm/Hg HCO3 22.0 (21-28) mmol/L ABG pH 7.28 L (7.35-7.45) ABG Total CO2 25.0 (22-28) mmol/L ABG O2 Saturation 98.0 (95-98) % ABG Base Excess -3.7 L (-2.0-3.0) mmol/L ABG Hemoglobin (11.7-17.4) g/dL ABG Carboxyhemoglobin (0.5-1.5) % POC ABG HHb (Measured) (0.0-5.0) % ABG Methemoglobin (0.0-3.0) % Fish Test Pos ABG Potassium 4.0 (3.6-5.2) mmol/L A-a O2 Difference 209.0 mm/Hg Respiratory Index 2.5 Hgb O2 Saturation (95.0-98.0) % Glucose 170 H (65-105) mg/dl Lactate 0.6 L (0.7-2.1) mmol/L Mechanical Rate 14 FiO2 50.0 % Tidal Volume 450 PEEP 5 Pressure Support CPAP Sodium 144.0 (132-148) mmol/L Potassium (3.6-5.2) mmol/L Chloride 117.0 H (98-107) mmol/L Carbon Dioxide (22-30) mmol/L Anion Gap (10-20) BUN (7-17) mg/dL Creatinine (0.7-1.2) MG/DL Est GFR ( Amer) Est GFR (Non-Af Amer) POC Glucose (mg/dL) 171 H 156 H (65-110) mg/dL Random Glucose (65-105) mg/dL Calcium (8.6-10.4) mg/dl Phosphorus (2.5-4.5) mg/dL Magnesium (1.6-2.3) mg/dL Total Bilirubin (0.2-1.3) mg/dL AST (14-36) U/L ALT (9-52) U/L Alkaline Phosphatase (38-126) U/L Total Protein (6.3-8.3) g/dL Albumin (3.5-5.0) g/dL Globulin (2.2-3.9) gm/dL Albumin/Globulin Ratio (1.0-2.1) Arterial Blood Potassium 4.0 (3.6-5.2) mmol/L 09/25/16 Range/Units 18:01 WBC (4.8-10.8) K/uL RBC (3.80-5.20) Mil/uL Hgb (11.0-16.0) g/dL Hct (34.0-47.0) % MCV (81.0-99.0) fL MCH (27.0-31.0) pg MCHC (33.0-37.0) g/dL RDW (11.5-14.5) % Plt Count (130-400) K/uL MPV (7.2-11.7) fL Neut % (Auto) (50.0-75.0) % Lymph % (Auto) (20.0-40.0) % Love % (Auto) (0.0-10.0) % Eos % (Auto) (0.0-4.0) % Baso % (Auto) (0.0-2.0) % Neut # (1.8-7.0) K/uL Lymph # (1.0-4.3) K/uL Love # (0.0-0.8) K/uL Eos # (0.0-0.7) K/uL Baso # (0.0-0.2) K/uL Neutrophils % (Manual) (50-75) % Band Neutrophils % (0-2) % Lymphocytes % (Manual) (20-40) % Monocytes % (Manual) (0-10) % Platelet Estimate (NORMAL) RBC Morphology Puncture Site pCO2 (35-45) mm/Hg pO2 (80-100) mm/Hg HCO3 (21-28) mmol/L ABG pH (7.35-7.45) ABG Total CO2 (22-28) mmol/L ABG O2 Saturation (95-98) % ABG Base Excess (-2.0-3.0) mmol/L ABG Hemoglobin (11.7-17.4) g/dL ABG Carboxyhemoglobin (0.5-1.5) % POC ABG HHb (Measured) (0.0-5.0) % ABG Methemoglobin (0.0-3.0) % Fish Test ABG Potassium (3.6-5.2) mmol/L A-a O2 Difference mm/Hg Respiratory Index Hgb O2 Saturation (95.0-98.0) % Glucose (65-105) mg/dl Lactate (0.7-2.1) mmol/L Mechanical Rate FiO2 % Tidal Volume PEEP Pressure Support CPAP Sodium (132-148) mmol/L Potassium (3.6-5.2) mmol/L Chloride (98-107) mmol/L Carbon Dioxide (22-30) mmol/L Anion Gap (10-20) BUN (7-17) mg/dL Creatinine (0.7-1.2) MG/DL Est GFR ( Amer) Est GFR (Non-Af Amer) POC Glucose (mg/dL) 158 H (65-110) mg/dL Random Glucose (65-105) mg/dL Calcium (8.6-10.4) mg/dl Phosphorus (2.5-4.5) mg/dL Magnesium (1.6-2.3) mg/dL Total Bilirubin (0.2-1.3) mg/dL AST (14-36) U/L ALT (9-52) U/L Alkaline Phosphatase (38-126) U/L Total Protein (6.3-8.3) g/dL Albumin (3.5-5.0) g/dL Globulin (2.2-3.9) gm/dL Albumin/Globulin Ratio (1.0-2.1) Arterial Blood Potassium (3.6-5.2) mmol/L Laboratory Results - last 24 hr 09/25/16 09/26/16 09/26/16 18:01 00:21 05:15 WBC RBC Hgb Hct MCV MCH MCHC RDW Plt Count MPV Neut % (Auto) Lymph % (Auto) Love % (Auto) Eos % (Auto) Baso % (Auto) Neut # Lymph # Love # Eos # Baso # Neutrophils % (Manual) Band Neutrophils % Lymphocytes % (Manual) Monocytes % (Manual) Platelet Estimate RBC Morphology Puncture Site Rr pCO2 50 H pO2 85 HCO3 22.0 ABG pH 7.28 L ABG Total CO2 25.0 ABG O2 Saturation 98.0 ABG Base Excess -3.7 L ABG Hemoglobin ABG Carboxyhemoglobin POC ABG HHb (Measured) ABG Methemoglobin Fish Test Pos ABG Potassium 4.0 A-a O2 Difference 209.0 Respiratory Index 2.5 Hgb O2 Saturation Sodium 144.0 Chloride 117.0 H Glucose 170 H Lactate 0.6 L Mechanical Rate 14 FiO2 50.0 Tidal Volume 450 PEEP 5 Pressure Support CPAP Potassium Carbon Dioxide Anion Gap BUN Creatinine Est GFR ( Amer) Est GFR (Non-Af Amer) POC Glucose (mg/dL) 158 H 156 H Random Glucose Calcium Phosphorus Magnesium Total Bilirubin AST ALT Alkaline Phosphatase Total Protein Albumin Globulin Albumin/Globulin Ratio Arterial Blood Potassium 4.0 09/26/16 09/26/16 09/26/16 06:15 06:39 11:26 WBC 7.5 RBC 4.17 Hgb 12.9 Hct 38.8 MCV 93.0 D MCH 31.0 MCHC 33.3 RDW 15.1 H Plt Count 172 MPV 9.5 Neut % (Auto) 89.1 H Lymph % (Auto) 5.7 L Love % (Auto) 5.0 Eos % (Auto) 0.0 Baso % (Auto) 0.2 Neut # 6.7 Lymph # 0.4 L Love # 0.4 Eos # 0.0 Baso # 0.0 Neutrophils % (Manual) 81 H Band Neutrophils % 6 H Lymphocytes % (Manual) 6 L Monocytes % (Manual) 7 Platelet Estimate Normal RBC Morphology Normal Puncture Site pCO2 pO2 HCO3 ABG pH ABG Total CO2 ABG O2 Saturation ABG Base Excess ABG Hemoglobin ABG Carboxyhemoglobin POC ABG HHb (Measured) ABG Methemoglobin Fish Test ABG Potassium A-a O2 Difference Respiratory Index Hgb O2 Saturation Sodium 143 Chloride 107 Glucose Lactate Mechanical Rate FiO2 Tidal Volume PEEP Pressure Support CPAP Potassium 4.1 Carbon Dioxide 22 Anion Gap 18 BUN 41 H Creatinine 1.3 H Est GFR ( Amer) 47 Est GFR (Non-Af Amer) 39 POC Glucose (mg/dL) 171 H 161 H Random Glucose 184 H Calcium 7.5 L Phosphorus 3.6 Magnesium 2.3 Total Bilirubin 0.5 AST 44 H D ALT 38 Alkaline Phosphatase 47 Total Protein 6.0 L Albumin 2.8 L Globulin 3.2 Albumin/Globulin Ratio 0.9 L Arterial Blood Potassium 09/26/16 11:45 WBC RBC Hgb Hct MCV MCH MCHC RDW Plt Count MPV Neut % (Auto) Lymph % (Auto) Love % (Auto) Eos % (Auto) Baso % (Auto) Neut # Lymph # Love # Eos # Baso # Neutrophils % (Manual) Band Neutrophils % Lymphocytes % (Manual) Monocytes % (Manual) Platelet Estimate RBC Morphology Puncture Site Rb pCO2 57 H pO2 65 L HCO3 21.8 ABG pH 7.24 L ABG Total CO2 26.1 ABG O2 Saturation 94.8 L ABG Base Excess -3.8 L ABG Hemoglobin 13.1 ABG Carboxyhemoglobin 1.8 H POC ABG HHb (Measured) 5.0 ABG Methemoglobin 1.1 Fish Test Na ABG Potassium A-a O2 Difference 220.0 Respiratory Index 3.4 Hgb O2 Saturation 92.0 L Sodium Chloride Glucose Lactate Mechanical Rate FiO2 50.0 Tidal Volume PEEP Pressure Support 10 CPAP 5 Potassium Carbon Dioxide Anion Gap BUN Creatinine Est GFR ( Amer) Est GFR (Non-Af Amer) POC Glucose (mg/dL) Random Glucose Calcium Phosphorus Magnesium Total Bilirubin AST ALT Alkaline Phosphatase Total Protein Albumin Globulin Albumin/Globulin Ratio Arterial Blood Potassium Assessment/Plan (1) Respiratory failure Current Visit: Yes Status: Acute Priority: High Attending/Attestation - Attestation I have personally seen and examined this patient.: Yes I have fully participated in the care of the patient.: Yes I have reviewed all pertinent clinical information: Yes Notes (Text): 09/26/16 16:33 I have seen and examined the patient. Medical records, lab studies, and imaging were reviewed by me and a management plan was formulated on multidisciplinary rounds with resident Dr. Levy. I agree with their above documented assessment and plan. Ordered CT chest to better assess possible pneumonia. Patient is still hypercarbic that worsens upon pressure support trials. Not ready for extubation. Critical Care Time 35 minutes. Multi-disciplinary rounds were performed with house staff, nursing, speech therapy, respiratory therapy, pharmacy and nutrition with integrated input from the primary team/attending and other consulting services. The documented time is cumulative and includes review of patient data/exams/labs/chart review and examination of the patient on rounds and throughout the day; time is exclusive of any procedures or teaching time. 09/26/16 16:34
[2016-09-26] MEDS: Midazolam 2 MG/2 ML VIAL IVP PRN ×2 (14:02→17:44)
[2016-09-26] MEDS ORDERED: Metoprolol 1 mg/ml Inj IVP ONE (17:49)
[2016-09-26] MEDS: Dexmedetomidine Hydrochloride 200 MCG in Sodium Chloride 0.9% 48 ML IVPB PRN ×4 (18:35→22:40)
[2016-09-26] MEDS ORDERED: (Novolin R) Insulin Human Regular 100 units/ml vial SC ONE (18:49)
[2016-09-26] MEDS ORDERED: Potassium Chloride 20 mEq/15 ml LIQ UD PO STA (18:52)
[2016-09-26] MEDS: Azithromycin 500 MG in Sodium Chloride 0.9% 250 ML IVPB SCH (21:52)
[2016-09-26] MEDS: cefTRIAXone 2 GM in Sodium Chloride 0.9% 100 ML IVPB SCH (22:41)
[2016-09-27] MEDS ORDERED: (Novolin R) Insulin Human Regular 100 units/ml vial SC SCH
[2016-09-27] MEDS: Dexmedetomidine Hydrochloride 200 MCG in Sodium Chloride 0.9% 48 ML IVPB PRN ×11 (00:30→19:41)
[2016-09-27] MEDS: Sodium Chloride 0.9% 1,000 ML IV SCH ×3 (00:42→11:39)
[2016-09-27] MEDS: Albuterol-Ipratrop 3 mg / 0.5 (3 ml) UD INH SCH ×5 (03:04→19:18)
[2016-09-27] MEDS: MethylPREDNISolone 40 mg Vial IV SCH ×3 (05:45→22:26)
[2016-09-27 05:56] LABS: ABG MECHANICAL RATE 16; ARTERIAL BLOOD HGB O2 SAT 95.8 % (95.0-98.0); ATERIAL BLOOD GAS PEEP 5; CARBOXYHEMOGLOBIN 1.8 % (0.5-1.5); DRAW SITE RB; HHB 1.5 % (0.0-5.0); METHEMOGLOBIN 0.9 % (0.0-3.0)
[2016-09-27] MEDS: (Novolin R) Insulin Human Regular 100 units/ml vial SC SCH ×3 (06:00→18:36)
[2016-09-27 06:39] LABS: BASO % 0.2 % (0.0-2.0); LYMPH # 0.4 K/uL (1.0-4.3); LYMPH % 4.8 % (20.0-40.0); MEAN CELL VOLUME 92.7 fL (81.0-99.0); MEAN CORPUSCULAR HEMOGLOBIN 31.5 pg (27.0-31.0); MEAN PLATELET VOLUME 9.6 fL (7.2-11.7); MONO # 0.3 K/uL (0.0-0.8); NRBC % 0.1 % (0.0-2.0); PLATELET COUNT 179 K/uL (130-400); WHITE BLOOD COUNT 7.3 K/uL (4.8-10.8)
[2016-09-27 06:43] LABS: BILIRUBIN,TOTAL 0.2 mg/dL (0.2-1.3); TOTAL PROTEIN 5.6 g/dL (6.3-8.3)
[2016-09-27 06:44] LABS: CALCIUM 7.9 mg/dl (8.6-10.4); MAGNESIUM 2.2 mg/dL (1.6-2.3); PHOSPHOROUS 2.9 mg/dL (2.5-4.5)
--- NOTE | 2016-09-27 08:24 | CP.PCM.PN ---
Subjective - Date & Time of Evaluation Date of Evaluation: 09/27/16 Time of Evaluation: 07:00 - Subjective Subjective: patient seen and examined in the intensive care unit. Remains intubated on ventilatory support Tolerated CPAP for a few hours yesterday but because of elevated PCO2 was not extubated CPAP trial again today hold Sedation Objective - Vital Signs/Intake and Output Vital Signs (last 24 hours): Temp Pulse Resp BP Pulse Ox 97.6 F 70 16 171/92 H 99 09/27/16 04:00 09/27/16 08:00 09/27/16 08:00 09/27/16 07:28 09/27/16 08:00 Intake and Output: 09/27/16 09/27/16 06:59 18:59 Intake Total 2584 137 Output Total 500 Balance 2084 137 - Medications Medications: Current Medications Albuterol/Ipratropium (Duoneb 3 Mg/0.5 Mg (3 Ml) Ud) 3 ml INH RQ4 [facility] Last Admin: 09/27/16 07:21 Dose: 3 ml Aspirin (Aspirin Chewable) 81 mg PO DAILY [facility] Last Admin: 09/26/16 10:14 Dose: 81 mg Clopidogrel Bisulfate (Plavix) 75 mg PO DAILY [facility] Last Admin: 09/26/16 10:13 Dose: 75 mg Diltiazem HCl (Cardizem) 30 mg PO Q6H [facility] Last Admin: 09/27/16 04:40 Dose: 30 mg Enoxaparin Sodium (Lovenox) 40 mg SC DAILY [facility] Last Admin: 09/26/16 13:07 Dose: 40 mg Ceftriaxone Sodium 2 gm/ (Sodium Chloride) 100 mls @ 100 mls/hr IVPB Q24H [facility] Last Admin: 09/26/16 22:41 Dose: 100 mls/hr Azithromycin 500 mg/ Sodium (Chloride) 250 mls @ 250 mls/hr IVPB Q24H [facility] Last Admin: 09/26/16 21:52 Dose: 250 mls/hr Sodium Chloride (Sodium Chloride 0.9%) 1,000 mls @ 100 mls/hr IV .Q10H [facility] Last Admin: 09/27/16 06:01 Dose: Not Given Dexmedetomidine HCl 200 mcg/ (Sodium Chloride) 50 mls @ 3.65 mls/hr IVPB TITR PRN; Protocol; 0.2 MCG/KG/HR PRN Reason: Agitation Last Admin: 09/27/16 08:03 Dose: 18.25 mls/hr Insulin Human Regular (Novolin R) 0 unit SC Q6 [facility] PRN Reason: Protocol Last Admin: 09/27/16 06:00 Dose: Not Given Methylprednisolone (Solu-Medrol) 40 mg IV Q8 [facility] Last Admin: 09/27/16 05:45 Dose: 40 mg Midazolam HCl (Versed Inj) 2 mg IVP Q4H PRN PRN Reason: Agitation Last Admin: 09/26/16 17:44 Dose: 2 mg Nicotine (Nicoderm Cq) 1 patch TD DAILY [facility] Last Admin: 09/26/16 11:00 Dose: 1 patch Rosuvastatin Calcium (Crestor) 10 mg PO HS [facility] Last Admin: 09/26/16 21:13 Dose: 10 mg Sucralfate (Carafate Oral Susp) 1 gm PO DAILY [facility] Last Admin: 09/26/16 10:12 Dose: 1 gm - Labs Labs: 09/27/16 06:26 09/27/16 06:26 PT 10.9 SECONDS (9.7-12.2) 09/27/16 06:26 INR 1.0 09/27/16 06:26 APTT 29 SECONDS (21-34) 09/27/16 06:26 - Head Exam Head Exam: ATRAUMATIC, NORMOCEPHALIC - Eye Exam Eye Exam: Normal appearance - ENT Exam ENT Exam: Mucous Membranes Moist - Neck Exam Neck Exam: Normal Inspection - Respiratory Exam Respiratory Exam: Decreased Breath Sounds - Cardiovascular Exam Cardiovascular Exam: REGULAR RHYTHM - GI/Abdominal Exam GI & Abdominal Exam: Soft, Normal Bowel Sounds - Extremities Exam Extremities Exam: Normal Inspection Assessment and Plan (1) Acute respiratory failure with hypoxia and hypercarbia Assessment & Plan: CPAP trial Taper off sedation Continue steroids and nebulizer treatment Continue anticoagulation hold feeding Status: Acute (2) Acute AK Status: Acute
--- NOTE | 2016-09-27 08:43 | CP.CCUPN ---
<Fabian Levy - Last Filed: 09/27/16 12:00> CCU Subjective - Physician Review Subjective (Free Text): 09/24/16 13:39 Patient was seen and examined at bedside. No acute distress on ventilator. No acute events overnight. Nursing staff reports no issues. Patient is resting comfortably on the bed, maintained on a propofol drip 10mcg/kg/min. Patient is lethargic but awakens to voice, follows command. Denies any pain or complaints aside from the ventilator. Hypercarbia has improved on todays ABG. 09/25/16 10:20 Patient was seen and examined at bedside. No acute distress on ventilator. No acute events overnight. Nursing staff reports no issues. Patient is resting comfortably on the bed. Patient is on cPAP. Patient is planned for extubation today. Hypercarbia has stabilized. Patient is likely at her baseline. Today, nicotine patch was ordered and a fluid challenge (250cc bolus) due to acute rise in BUN/Cr. 09/26/16 13:51 Patient was seen and examined at bedside. No acute distress on ventilator. No acute events overnight. Patient was trialed on CPAP yesterday [id number]. Patient had poor inspiratory volumes and was placed back on vent. The patient was again tried on CPAP this morning but could not maintain adequate tidal volume. The patient was placed back on the ventilator at an increased rate to decrease her PCO2. Today, the patients respiratory rate was increased to 16. A CT of the Chest was ordered. Feeds were restarted, and lovenox 40mg sc daily was started for dvt prophylaxis. 09/27/16 08:40 Patient was seen and examined at bedside. No acute distress on ventilator. No acute events overnight. Nursing staff reports no issues. Patient remains intubated (TV 450mL, FiO2 50%, Rate 16, PEEP 5) and sedated 0.2mcg/kg/hr on prededex. The patient has bee trialed x2 with CPAP and not tolerated. The patient has continued to have a respiratory acidosis. The patient was tachycardic 5mg of Lopressor was given IV x1 and Cardizem 30mg PO q6 was started. Today, the patient was started on lisinopril for HTN. Hydralazine IV was added PRN for HTN coverage for SBP >170mmHg. The patient was again tried on CPAP 15/ 5 but could not tolerate the transition and thus was put back on PRVC. Critical Care Time Spent (in minutes): 90 CCU Objective - Vital Signs / Intake & Output Vital Signs (Last 4 hours): Vital Signs Temp Pulse Resp BP Pulse Ox 09/27/16 08:00 985.0 F H 70 16 98 09/27/16 07:29 71 16 98 09/27/16 07:28 73 16 171/92 H 98 09/27/16 07:00 71 16 97 09/27/16 06:28 71 16 162/92 H 98 09/27/16 06:03 75 17 97 09/27/16 06:00 73 16 97 09/27/16 05:28 87 15 173/98 H 97 09/27/16 05:00 73 16 97 Intake and Output (Last 8hrs): Intake & Output 09/26/16 09/27/16 09/27/16 22:59 06:59 14:59 Intake Total 1456.5 1666 333.5 Output Total 385 320 125 Balance 1071.5 1346 208.5 Weight 73 kg Intake: Intake, IV Amount 1116.5 1096 273.5 Right Forearm 500 Left Forearm 166.5 111 right upper arm 500 200 right upper arm distal 185 73.5 port left wrist 450 300 Oral 30 Tube Feeding 240 240 30 Other 100 330 Output: Urine 385 320 125 Urethral (Antony) 385 320 125 Other: # Bowel Movements 1 0 - Physical Exam Head: Positive for: Atraumatic, Normocephalic, Other (ET Tube in place) Pupils: Positive for: PERRL Mouth: Positive for: Dry Respiratory/Chest: Positive for: Clear to Auscultation, Good Air Exchange, Rales. Negative for: Respiratory Distress Cardiovascular: Positive for: Normal S1, S2, Irregular Rhythm. Negative for: Regular Rate and Rhythm, Murmurs Abdomen: Positive for: Normal Bowel Sounds. Negative for: Tenderness, Distention Upper Extremity: Positive for: Normal Inspection. Negative for: Cyanosis, Edema Lower Extremity: Positive for: Normal Inspection. Negative for: Edema, CALF TENDERNESS Skin: Positive for: Warm, Dry - Medications Active Medications: Active Medications Generic Name Dose Route Start Last Admin Trade Name Freq PRN Reason Stop Dose Admin Albuterol/Ipratropium 3 ml 09/23/16 22:00 09/27/16 07:21 Duoneb 3 Mg/0.5 Mg (3 Ml) Ud INH 3 ml RQ4 KAILA Administration Aspirin 81 mg 09/24/16 18:30 09/26/16 10:14 Aspirin Chewable PO 81 mg DAILY KAILA Administration Clopidogrel Bisulfate 75 mg 09/26/16 10:00 09/26/16 10:13 Plavix PO 75 mg DAILY KAILA Administration Diltiazem HCl 30 mg 09/26/16 22:15 09/27/16 04:40 Cardizem PO 30 mg Q6H KAILA Administration Enoxaparin Sodium 40 mg 09/26/16 13:00 09/26/16 13:07 Lovenox SC 40 mg DAILY KAILA Administration Ceftriaxone Sodium 2 gm/ 100 mls @ 100 mls/hr 09/23/16 23:30 09/26/16 22:41 Sodium Chloride IVPB 100 mls/hr Q24H KAILA Administration Azithromycin 500 mg/ Sodium 250 mls @ 250 mls/hr 09/23/16 22:15 09/26/16 21:52 Chloride IVPB 250 mls/hr Q24H KAILA Administration Sodium Chloride 1,000 mls @ 100 mls/hr 09/24/16 14:15 09/27/16 06:01 Sodium Chloride 0.9% IV Not Given .Q10H KAILA Dexmedetomidine HCl 200 mcg/ 50 mls @ 3.65 mls/hr 09/26/16 18:09 09/27/16 08:03 Sodium Chloride IVPB 18.25 mls/hr TITR PRN Administration Agitation Protocol 0.2 MCG/KG/HR Insulin Human Regular 0 unit 09/27/16 06:00 09/27/16 06:00 Novolin R SC Not Given Q6 KAILA Protocol Lisinopril 10 mg 09/27/16 10:00 Zestril NG DAILY KAILA Methylprednisolone 40 mg 09/24/16 06:00 09/27/16 05:45 Solu-Medrol IV 40 mg Q8 KAILA Administration Midazolam HCl 2 mg 09/26/16 09:26 09/26/16 17:44 Versed Inj IVP 2 mg Q4H PRN Administration Agitation Nicotine 1 patch 09/25/16 10:00 09/26/16 11:00 Nicoderm Cq TD 1 patch DAILY KAILA Administration Rosuvastatin Calcium 10 mg 09/23/16 22:00 09/26/16 21:13 Crestor PO 10 mg HS KAILA Administration Sucralfate 1 gm 09/24/16 10:00 09/26/16 10:12 Carafate Oral Susp PO 1 gm DAILY KAILA Administration - Patient Studies Lab Studies: Lab Studies 09/27/16 09/27/16 09/27/16 Range/Units 06:26 05:24 05:02 WBC 7.3 (4.8-10.8) K/uL RBC 4.42 (3.80-5.20) Mil/uL Hgb 13.9 (11.0-16.0) g/dL Hct 41.0 (34.0-47.0) % MCV 92.7 (81.0-99.0) fL MCH 31.5 H (27.0-31.0) pg MCHC 34.0 (33.0-37.0) g/dL RDW 15.0 H (11.5-14.5) % Plt Count 179 (130-400) K/uL MPV 9.6 (7.2-11.7) fL Neut % (Auto) 91.0 H (50.0-75.0) % Lymph % (Auto) 4.8 L (20.0-40.0) % Wells % (Auto) 4.0 (0.0-10.0) % Eos % (Auto) 0.0 (0.0-4.0) % Baso % (Auto) 0.2 (0.0-2.0) % Neut # 6.7 (1.8-7.0) K/uL Lymph # 0.4 L (1.0-4.3) K/uL Wells # 0.3 (0.0-0.8) K/uL Eos # 0.0 (0.0-0.7) K/uL Baso # 0.0 (0.0-0.2) K/uL Neutrophils % (Manual) (50-75) % Band Neutrophils % (0-2) % Lymphocytes % (Manual) (20-40) % Monocytes % (Manual) (0-10) % Platelet Estimate (NORMAL) RBC Morphology PT 10.9 (9.7-12.2) SECONDS INR 1.0 APTT 29 (21-34) SECONDS Puncture Site Rb pCO2 45 (35-45) mm/Hg pO2 87 (80-100) mm/Hg HCO3 20.1 L (21-28) mmol/L ABG pH 7.27 L (7.35-7.45) ABG Total CO2 22.1 (22-28) mmol/L ABG O2 Saturation 98.5 H (95-98) % ABG Base Excess -6.1 L (-2.0-3.0) mmol/L ABG Hemoglobin 12.4 (11.7-17.4) g/dL ABG Carboxyhemoglobin 1.8 H (0.5-1.5) % POC ABG HHb (Measured) 1.5 (0.0-5.0) % ABG Methemoglobin 0.9 (0.0-3.0) % Fish Test Na A-a O2 Difference 213.0 mm/Hg Respiratory Index 2.4 Hgb O2 Saturation 95.8 (95.0-98.0) % Mechanical Rate 16 FiO2 50.0 % Tidal Volume 450 PEEP 5 Pressure Support CPAP Sodium 146 (132-148) mmol/L Potassium 5.0 (3.6-5.2) mmol/L Chloride 109 H (98-107) mmol/L Carbon Dioxide 23 (22-30) mmol/L Anion Gap 19 (10-20) BUN 40 H (7-17) mg/dL Creatinine 1.2 (0.7-1.2) MG/DL Est GFR ( Amer) 52 Est GFR (Non-Af Amer) 43 POC Glucose (mg/dL) 130 H (65-110) mg/dL Random Glucose 157 H (65-105) mg/dL Calcium 7.9 L (8.6-10.4) mg/dl Phosphorus 2.9 (2.5-4.5) mg/dL Magnesium 2.2 (1.6-2.3) mg/dL Total Bilirubin 0.2 (0.2-1.3) mg/dL AST 38 H (14-36) U/L ALT 34 (9-52) U/L Alkaline Phosphatase 33 L D (38-126) U/L Total Protein 5.6 L (6.3-8.3) g/dL Albumin 2.8 L (3.5-5.0) g/dL Globulin 2.8 (2.2-3.9) gm/dL Albumin/Globulin Ratio 1.0 (1.0-2.1) 09/27/16 09/26/16 09/26/16 Range/Units 00:09 17:56 11:45 WBC (4.8-10.8) K/uL RBC (3.80-5.20) Mil/uL Hgb (11.0-16.0) g/dL Hct (34.0-47.0) % MCV (81.0-99.0) fL MCH (27.0-31.0) pg MCHC (33.0-37.0) g/dL RDW (11.5-14.5) % Plt Count (130-400) K/uL MPV (7.2-11.7) fL Neut % (Auto) (50.0-75.0) % Lymph % (Auto) (20.0-40.0) % Wells % (Auto) (0.0-10.0) % Eos % (Auto) (0.0-4.0) % Baso % (Auto) (0.0-2.0) % Neut # (1.8-7.0) K/uL Lymph # (1.0-4.3) K/uL Wells # (0.0-0.8) K/uL Eos # (0.0-0.7) K/uL Baso # (0.0-0.2) K/uL Neutrophils % (Manual) (50-75) % Band Neutrophils % (0-2) % Lymphocytes % (Manual) (20-40) % Monocytes % (Manual) (0-10) % Platelet Estimate (NORMAL) RBC Morphology PT (9.7-12.2) SECONDS INR APTT (21-34) SECONDS Puncture Site Rb pCO2 57 H (35-45) mm/Hg pO2 65 L (80-100) mm/Hg HCO3 21.8 (21-28) mmol/L ABG pH 7.24 L (7.35-7.45) ABG Total CO2 26.1 (22-28) mmol/L ABG O2 Saturation 94.8 L (95-98) % ABG Base Excess -3.8 L (-2.0-3.0) mmol/L ABG Hemoglobin 13.1 (11.7-17.4) g/dL ABG Carboxyhemoglobin 1.8 H (0.5-1.5) % POC ABG HHb (Measured) 5.0 (0.0-5.0) % ABG Methemoglobin 1.1 (0.0-3.0) % Fish Test Na A-a O2 Difference 220.0 mm/Hg Respiratory Index 3.4 Hgb O2 Saturation 92.0 L (95.0-98.0) % Mechanical Rate FiO2 50.0 % Tidal Volume PEEP Pressure Support 10 CPAP 5 Sodium (132-148) mmol/L Potassium (3.6-5.2) mmol/L Chloride (98-107) mmol/L Carbon Dioxide (22-30) mmol/L Anion Gap (10-20) BUN (7-17) mg/dL Creatinine (0.7-1.2) MG/DL Est GFR ( Amer) Est GFR (Non-Af Amer) POC Glucose (mg/dL) 161 H 140 H (65-110) mg/dL Random Glucose (65-105) mg/dL Calcium (8.6-10.4) mg/dl Phosphorus (2.5-4.5) mg/dL Magnesium (1.6-2.3) mg/dL Total Bilirubin (0.2-1.3) mg/dL AST (14-36) U/L ALT (9-52) U/L Alkaline Phosphatase (38-126) U/L Total Protein (6.3-8.3) g/dL Albumin (3.5-5.0) g/dL Globulin (2.2-3.9) gm/dL Albumin/Globulin Ratio (1.0-2.1) 09/26/16 09/26/16 Range/Units 11:26 06:39 WBC (4.8-10.8) K/uL RBC (3.80-5.20) Mil/uL Hgb (11.0-16.0) g/dL Hct (34.0-47.0) % MCV (81.0-99.0) fL MCH (27.0-31.0) pg MCHC (33.0-37.0) g/dL RDW (11.5-14.5) % Plt Count (130-400) K/uL MPV (7.2-11.7) fL Neut % (Auto) (50.0-75.0) % Lymph % (Auto) (20.0-40.0) % Wells % (Auto) (0.0-10.0) % Eos % (Auto) (0.0-4.0) % Baso % (Auto) (0.0-2.0) % Neut # (1.8-7.0) K/uL Lymph # (1.0-4.3) K/uL Wells # (0.0-0.8) K/uL Eos # (0.0-0.7) K/uL Baso # (0.0-0.2) K/uL Neutrophils % (Manual) 81 H (50-75) % Band Neutrophils % 6 H (0-2) % Lymphocytes % (Manual) 6 L (20-40) % Monocytes % (Manual) 7 (0-10) % Platelet Estimate Normal (NORMAL) RBC Morphology Normal PT (9.7-12.2) SECONDS INR APTT (21-34) SECONDS Puncture Site pCO2 (35-45) mm/Hg pO2 (80-100) mm/Hg HCO3 (21-28) mmol/L ABG pH (7.35-7.45) ABG Total CO2 (22-28) mmol/L ABG O2 Saturation (95-98) % ABG Base Excess (-2.0-3.0) mmol/L ABG Hemoglobin (11.7-17.4) g/dL ABG Carboxyhemoglobin (0.5-1.5) % POC ABG HHb (Measured) (0.0-5.0) % ABG Methemoglobin (0.0-3.0) % Fish Test A-a O2 Difference mm/Hg Respiratory Index Hgb O2 Saturation (95.0-98.0) % Mechanical Rate FiO2 % Tidal Volume PEEP Pressure Support CPAP Sodium (132-148) mmol/L Potassium (3.6-5.2) mmol/L Chloride (98-107) mmol/L Carbon Dioxide (22-30) mmol/L Anion Gap (10-20) BUN (7-17) mg/dL Creatinine (0.7-1.2) MG/DL Est GFR ( Amer) Est GFR (Non-Af Amer) POC Glucose (mg/dL) 161 H (65-110) mg/dL Random Glucose (65-105) mg/dL Calcium (8.6-10.4) mg/dl Phosphorus (2.5-4.5) mg/dL Magnesium (1.6-2.3) mg/dL Total Bilirubin (0.2-1.3) mg/dL AST (14-36) U/L ALT (9-52) U/L Alkaline Phosphatase (38-126) U/L Total Protein (6.3-8.3) g/dL Albumin (3.5-5.0) g/dL Globulin (2.2-3.9) gm/dL Albumin/Globulin Ratio (1.0-2.1) Laboratory Results - last 24 hr 09/26/16 09/26/16 09/26/16 06:39 11:26 11:45 WBC RBC Hgb Hct MCV MCH MCHC RDW Plt Count MPV Neut % (Auto) Lymph % (Auto) Wells % (Auto) Eos % (Auto) Baso % (Auto) Neut # Lymph # Wells # Eos # Baso # Neutrophils % (Manual) 81 H Band Neutrophils % 6 H Lymphocytes % (Manual) 6 L Monocytes % (Manual) 7 Platelet Estimate Normal RBC Morphology Normal PT INR APTT Puncture Site Rb pCO2 57 H pO2 65 L HCO3 21.8 ABG pH 7.24 L ABG Total CO2 26.1 ABG O2 Saturation 94.8 L ABG Base Excess -3.8 L ABG Hemoglobin 13.1 ABG Carboxyhemoglobin 1.8 H POC ABG HHb (Measured) 5.0 ABG Methemoglobin 1.1 Fish Test Na A-a O2 Difference 220.0 Respiratory Index 3.4 Hgb O2 Saturation 92.0 L Mechanical Rate FiO2 50.0 Tidal Volume PEEP Pressure Support 10 CPAP 5 Sodium Potassium Chloride Carbon Dioxide Anion Gap BUN Creatinine Est GFR ( Amer) Est GFR (Non-Af Amer) POC Glucose (mg/dL) 161 H Random Glucose Calcium Phosphorus Magnesium Total Bilirubin AST ALT Alkaline Phosphatase Total Protein Albumin Globulin Albumin/Globulin Ratio 09/26/16 09/27/16 09/27/16 17:56 00:09 05:02 WBC RBC Hgb Hct MCV MCH MCHC RDW Plt Count MPV Neut % (Auto) Lymph % (Auto) Wells % (Auto) Eos % (Auto) Baso % (Auto) Neut # Lymph # Wells # Eos # Baso # Neutrophils % (Manual) Band Neutrophils % Lymphocytes % (Manual) Monocytes % (Manual) Platelet Estimate RBC Morphology PT INR APTT Puncture Site pCO2 pO2 HCO3 ABG pH ABG Total CO2 ABG O2 Saturation ABG Base Excess ABG Hemoglobin ABG Carboxyhemoglobin POC ABG HHb (Measured) ABG Methemoglobin Fish Test A-a O2 Difference Respiratory Index Hgb O2 Saturation Mechanical Rate FiO2 Tidal Volume PEEP Pressure Support CPAP Sodium Potassium Chloride Carbon Dioxide Anion Gap BUN Creatinine Est GFR ( Amer) Est GFR (Non-Af Amer) POC Glucose (mg/dL) 140 H 161 H 130 H Random Glucose Calcium Phosphorus Magnesium Total Bilirubin AST ALT Alkaline Phosphatase Total Protein Albumin Globulin Albumin/Globulin Ratio 09/27/16 09/27/16 05:24 06:26 WBC 7.3 RBC 4.42 Hgb 13.9 Hct 41.0 MCV 92.7 MCH 31.5 H MCHC 34.0 RDW 15.0 H Plt Count 179 MPV 9.6 Neut % (Auto) 91.0 H Lymph % (Auto) 4.8 L Wells % (Auto) 4.0 Eos % (Auto) 0.0 Baso % (Auto) 0.2 Neut # 6.7 Lymph # 0.4 L Wells # 0.3 Eos # 0.0 Baso # 0.0 Neutrophils % (Manual) Band Neutrophils % Lymphocytes % (Manual) Monocytes % (Manual) Platelet Estimate RBC Morphology PT 10.9 INR 1.0 APTT 29 Puncture Site Rb pCO2 45 pO2 87 HCO3 20.1 L ABG pH 7.27 L ABG Total CO2 22.1 ABG O2 Saturation 98.5 H ABG Base Excess -6.1 L ABG Hemoglobin 12.4 ABG Carboxyhemoglobin 1.8 H POC ABG HHb (Measured) 1.5 ABG Methemoglobin 0.9 Fish Test Na A-a O2 Difference 213.0 Respiratory Index 2.4 Hgb O2 Saturation 95.8 Mechanical Rate 16 FiO2 50.0 Tidal Volume 450 PEEP 5 Pressure Support CPAP Sodium 146 Potassium 5.0 Chloride 109 H Carbon Dioxide 23 Anion Gap 19 BUN 40 H Creatinine 1.2 Est GFR ( Amer) 52 Est GFR (Non-Af Amer) 43 POC Glucose (mg/dL) Random Glucose 157 H Calcium 7.9 L Phosphorus 2.9 Magnesium 2.2 Total Bilirubin 0.2 AST 38 H ALT 34 Alkaline Phosphatase 33 L D Total Protein 5.6 L Albumin 2.8 L Globulin 2.8 Albumin/Globulin Ratio 1.0 Fingerstick Blood Sugar Results: 130 Review of Systems - Review of Systems Systems not reviewed;Unavailable: Intubated Critical Care Progress Note - Ventilator Checklist Head of Bed 30 Degrees: Yes - Vent Settings TIDAL VOLUME:: 450 RESP RATE:: 16 FIO2:: 50 PEEP:: 5 - Extremities/Vascular Does the Patient have a Antony Catheter?: Yes Does the Patient need a Antony Catheter?: Yes - Prophylaxis GI Prophylaxis GI: PPI - Prophylaxis DVT Prophylaxis DVT: Lovenox Assessment/Plan - Assessment and Plan (Free Text) Assessment: This is an 86 y/o female with a suspected PMH of smoking, COPD, and HTN presenting with respiratory failure and hypercarbic encephalopathy. Today, plan for extubation and possible cath with Dr. Mendes. The patient will undergo a fluid challenge for acute rise in BUN/Cr. Patient failed trial of CPAP. Continue on vent with increased rate to resolve respiratory acidosis. The patient was again tried on CPAP 15/5 but could not tolerate the transition and thus was put back on PRVC. Plan: Neuro: Patient awakens to voice and responds to command. Sedation discontinued Denies pain or discomfort 09/23/16 CT Head- Generalized atrophy. Nonspecific white matter changes. Nicotine patch 21mg ordered for tobacco abuse disorder Sedation: Precedex 1mcg/kg/hr Cardiovascular: Irregularly Irregular rate Normal rhythm HTN Troponin- 0.2400 > 0.2480 > 0.2490 09/24/16 ECHO- LV normal systolic function, normal chamber size, mild/trace triscupid regurg 09/23/16 EKG- sinus tachycardia with PACs, low voltage QRS, possible anteroseptal infarct age undetermined- official read pending Suspect elevated troponin due to demand ischemia IVF- NS @ 100ml/hr Patient refusing cath 300mg Plavix loading dose given 09/25/16 75mg PO daily plavix Cardizem 20mg PO Q6 Lisinopril 20mg po daily Aspirin 81mg po daily Rouvastatin 10mg po hs Hydralazine 10mg IVP q6 PRN SBP >170 Pulmonary: Solumedrol 40mg IV q8 Duoneb q4 Imagin09/27/16 CXR- ET Tube proximal to the vicente. OG tube distal to diaphragm. Hazy bibasilar atelectasis. 09/26/16 CXR- Lines and tubes in stable position. Biapical pleural thickening with upper lobe granulomatous changes. Mild venous congestion. Chronic interstitial lung markings. Bibasilar airspace opacities 09/26/16 CT Chest- Small pleural effusions in atelectasis likely compressive bilaterally. Otherwise no significant pulmonary abnormalities. Underlying COPD and evidence of lower airway disease. Satisfactory position of support apparatus 09/25/16 CXR- ET tube in good position- official read pending 09/24/16 CXR- mild venous congestion 09/23/16 CXR- Probable Mach artifact with linear lucency in the left mid susie thorax. Mild venous congestion. Elevated right hemidiaphragm. Right hilar prominence. Endotracheal tube extending into the mid thoracic trachea. NG tube extending into the stomach. 09/23/16 CXR- Biapical pleural thickening with upper lobe granulomatous changes. Some airspace opacification at the right lung apex and right hilar region. Scattered nodularity in both lungs most predominant at the lung bases. Increased markings at the lung bases which may represent some patchy atelectasis. Ventilator settings: PRVC 16/1L/50/5 AB09/27/16 pH 7.27, CO2 45, O2 87, HCO3 20.1 09/26/16 (11:45) pH 7.24, CO2 57, O2 65, HCO3 21.8 09/26/16 (05:09) pH 7.28, CO2 50, O2 85, HCO3 22 09/25/16 pH 7.28, CO2 53, O2 113, HCO3 23 09/24/16 pH 7.32, CO2 54, O2 352, HCO3 25.4 09/23/16 O2 345 09/23/16 pH 7.22, CO2 80, O2 377, HCO3 26.9 GI: Protonix 40mg IV daily Hematology: No leukocytosis Hgb/Hct stable Bandemia improving 14 > 6 > 0 Endocrine: maintain euglycemia HbA1c- 5.9 CK- 3005 IVF- NS @ 100ml/hr Renal: Actue rise in BUN/Cr: improving - continue IVF Hypokalemia- resolved Hypomagnesemia- resolved IVF- NS @ 100ml/hr ID: No leukocytosis U/A negative Day 5 Rocephin 2g IV daily- start 09/23/16 Day 4 Azithromycin 500mg IV daily- start 09/24/16 : None MSK: None GI Prophylaxis- Carafate 1g po daily DVT Prophylaxis- lovenox 40mg sc daily Tommie Levy PGY1 - Date & Time Date: 09/27/16 Time: 08:49 <LatefAriel - Last Filed: 10/01/16 18:46> CCU Objective - Vital Signs / Intake & Output Vital Signs (Last 4 hours): Vital Signs Temp Pulse Resp BP Pulse Ox 10/01/16 18:00 73 16 119/66 97 10/01/16 17:00 74 21 136/66 98 10/01/16 16:00 98.1 F 71 21 128/62 97 10/01/16 15:00 72 19 136/68 96 Intake and Output (Last 8hrs): Intake & Output 10/01/16 10/01/16 10/01/16 06:59 14:59 22:59 Intake Total 427 215.3 102.4 Output Total 280 330 160 Balance 147 -114.7 -57.6 Weight 79 lb Intake: Intake, IV Amount 277 215.3 102.4 Right Forearm 177 215.3 102.4 left wrist 100 Other 150 Output: Urine 280 330 160 Urethral (Antony) 280 330 160 - Medications Active Medications: Active Medications Generic Name Dose Route Start Last Admin Trade Name Freq PRN Reason Stop Dose Admin Albuterol/Ipratropium 3 ml 09/30/16 12:00 10/01/16 15:34 Duoneb 3 Mg/0.5 Mg (3 Ml) Ud INH 3 ml RQ4 KAILA Administration Amlodipine Besylate 10 mg 09/29/16 10:00 10/01/16 10:21 Norvasc PO Not Given DAILY [facility] Aspirin 81 mg 09/24/16 18:30 10/01/16 10:21 Aspirin Chewable PO Not Given DAILY KAILA Clopidogrel Bisulfate 75 mg 09/26/16 10:00 10/01/16 10:20 Plavix PO Not Given DAILY KAILA Diltiazem HCl 30 mg 09/26/16 22:15 10/01/16 17:11 Cardizem PO 30 mg Q6H KAILA Administration Enoxaparin Sodium 40 mg 09/26/16 13:00 10/01/16 10:21 Lovenox SC 40 mg DAILY KAILA Administration Famotidine 20 mg 09/29/16 10:00 10/01/16 10:21 Pepcid PO Not Given DAILY KAILA Hydralazine HCl 10 mg 09/29/16 19:58 09/29/16 20:30 Apresoline IVP 10 mg Q6H PRN Administration Other Ceftriaxone Sodium 2 gm/ 100 mls @ 100 mls/hr 09/23/16 23:30 09/30/16 23:51 Sodium Chloride IVPB 100 mls/hr Q24H KAILA Administration Azithromycin 500 mg/ Sodium 250 mls @ 250 mls/hr 09/23/16 22:15 09/30/16 21:38 Chloride IVPB 250 mls/hr Q24H KAILA Administration Dexmedetomidine HCl 400 mcg/ 100 mls @ 21.9 mls/hr 10/01/16 05:06 10/01/16 17: 07 Sodium Chloride IVPB 27.37 mls/hr TITR PRN Administration Agitation Protocol 1.2 MCG/KG/HR Insulin Human Regular 0 unit 09/27/16 06:00 10/01/16 17:17 Novolin R SC Not Given Q6 [facility] Protocol Lactulose 20 gm 09/29/16 22:00 09/30/16 21:37 Enulose PO 20 gm HS KAILA Administration Lisinopril 20 mg 09/29/16 09:54 10/01/16 10:20 Zestril NG Not Given DAILY [facility] Methylprednisolone 40 mg 09/29/16 10:00 10/01/16 11:00 Solu-Medrol IV 40 mg Q12 KAILA Administration Midazolam HCl 2 mg 09/26/16 09:26 10/01/16 17:04 Versed Inj IVP 2 mg Q4H PRN Administration Agitation Nicotine 1 patch 09/25/16 10:00 10/01/16 10:23 Nicoderm Cq TD 1 patch DAILY KIALA Administration Rosuvastatin Calcium 10 mg 09/23/16 22:00 09/30/16 21:38 Crestor PO 10 mg HS KAILA Administration - Patient Studies Lab Studies: Lab Studies 10/01/16 10/01/16 10/01/16 Range/Units 17:15 12:15 06:40 WBC 10.8 (4.8-10.8) K/uL RBC 4.49 (3.80-5.20) Mil/uL Hgb 13.6 (11.0-16.0) g/dL Hct 41.1 (34.0-47.0) % MCV 91.4 (81.0-99.0) fL MCH 30.2 (27.0-31.0) pg MCHC 33.1 (33.0-37.0) g/dL RDW 14.5 (11.5-14.5) % Plt Count 205 (130-400) K/uL MPV 10.0 (7.2-11.7) fL Neut % (Auto) 94.5 H (50.0-75.0) % Lymph % (Auto) 1.7 L (20.0-40.0) % Wells % (Auto) 3.0 (0.0-10.0) % Eos % (Auto) 0.1 (0.0-4.0) % Baso % (Auto) 0.7 (0.0-2.0) % Neut # 10.2 H (1.8-7.0) K/uL Lymph # 0.2 L (1.0-4.3) K/uL Wells # 0.3 (0.0-0.8) K/uL Eos # 0.0 (0.0-0.7) K/uL Baso # 0.1 (0.0-0.2) K/uL Neutrophils % (Manual) 97 H (50-75) % Band Neutrophils % 1 (0-2) % Lymphocytes % (Manual) 1 L (20-40) % Monocytes % (Manual) 1 (0-10) % Platelet Estimate Normal (NORMAL) RBC Morphology Normal PT 11.6 (9.7-12.2) SECONDS INR 1.0 APTT 23 (21-34) SECONDS Puncture Site pCO2 (35-45) mm/Hg pO2 (80-100) mm/Hg HCO3 (21-28) mmol/L ABG pH (7.35-7.45) ABG Total CO2 (22-28) mmol/L ABG O2 Saturation (95-98) % ABG Base Excess (-2.0-3.0) mmol/L Fish Test ABG Potassium (3.6-5.2) mmol/L A-a O2 Difference mm/Hg Respiratory Index Glucose (65-105) mg/dl Lactate (0.7-2.1) mmol/L Mechanical Rate FiO2 % Tidal Volume PEEP Sodium 144 (132-148) mmol/L Potassium 3.9 (3.6-5.2) mmol/L Chloride 106 (98-107) mmol/L Carbon Dioxide 24 (22-30) mmol/L Anion Gap 18 (10-20) BUN 53 H (7-17) mg/dL Creatinine 1.2 (0.7-1.2) MG/DL Est GFR ( Amer) 52 Est GFR (Non-Af Amer) 43 POC Glucose (mg/dL) 126 H 132 H (65-110) mg/dL Random Glucose 167 H (65-105) mg/dL Calcium 7.8 L (8.6-10.4) mg/dl Phosphorus 4.0 (2.5-4.5) mg/dL Magnesium 2.2 (1.6-2.3) mg/dL Total Bilirubin 0.4 (0.2-1.3) mg/dL AST 43 H D (14-36) U/L ALT 39 (9-52) U/L Alkaline Phosphatase 35 L (38-126) U/L Total Protein 5.3 L (6.3-8.3) g/dL Albumin 2.5 L (3.5-5.0) g/dL Globulin 2.8 (2.2-3.9) gm/dL Albumin/Globulin Ratio 0.9 L (1.0-2.1) Arterial Blood Potassium (3.6-5.2) mmol/L 10/01/16 10/01/16 09/30/16 Range/Units 05:53 05:21 23:59 WBC (4.8-10.8) K/uL RBC (3.80-5.20) Mil/uL Hgb (11.0-16.0) g/dL Hct (34.0-47.0) % MCV (81.0-99.0) fL MCH (27.0-31.0) pg MCHC (33.0-37.0) g/dL RDW (11.5-14.5) % Plt Count (130-400) K/uL MPV (7.2-11.7) fL Neut % (Auto) (50.0-75.0) % Lymph % (Auto) (20.0-40.0) % Wells % (Auto) (0.0-10.0) % Eos % (Auto) (0.0-4.0) % Baso % (Auto) (0.0-2.0) % Neut # (1.8-7.0) K/uL Lymph # (1.0-4.3) K/uL Wells # (0.0-0.8) K/uL Eos # (0.0-0.7) K/uL Baso # (0.0-0.2) K/uL Neutrophils % (Manual) (50-75) % Band Neutrophils % (0-2) % Lymphocytes % (Manual) (20-40) % Monocytes % (Manual) (0-10) % Platelet Estimate (NORMAL) RBC Morphology PT (9.7-12.2) SECONDS INR APTT (21-34) SECONDS Puncture Site Rr pCO2 41 (35-45) mm/Hg pO2 86 (80-100) mm/Hg HCO3 24.3 (21-28) mmol/L ABG pH 7.38 (7.35-7.45) ABG Total CO2 25.6 (22-28) mmol/L ABG O2 Saturation 98.6 H (95-98) % ABG Base Excess -0.8 (-2.0-3.0) mmol/L Fish Test Pos ABG Potassium 3.7 (3.6-5.2) mmol/L A-a O2 Difference 219.0 mm/Hg Respiratory Index 2.5 Glucose 176 H (65-105) mg/dl Lactate 0.7 (0.7-2.1) mmol/L Mechanical Rate 16 FiO2 50.0 % Tidal Volume 450 PEEP 5 Sodium 143.0 (132-148) mmol/L Potassium (3.6-5.2) mmol/L Chloride 114.0 H (98-107) mmol/L Carbon Dioxide (22-30) mmol/L Anion Gap (10-20) BUN (7-17) mg/dL Creatinine (0.7-1.2) MG/DL Est GFR ( Amer) Est GFR (Non-Af Amer) POC Glucose (mg/dL) 221 H 190 H (65-110) mg/dL Random Glucose (65-105) mg/dL Calcium (8.6-10.4) mg/dl Phosphorus (2.5-4.5) mg/dL Magnesium (1.6-2.3) mg/dL Total Bilirubin (0.2-1.3) mg/dL AST (14-36) U/L ALT (9-52) U/L Alkaline Phosphatase (38-126) U/L Total Protein (6.3-8.3) g/dL Albumin (3.5-5.0) g/dL Globulin (2.2-3.9) gm/dL Albumin/Globulin Ratio (1.0-2.1) Arterial Blood Potassium 3.7 (3.6-5.2) mmol/L Laboratory Results - last 24 hr 09/30/16 10/01/16 10/01/16 23:59 05:21 05:53 WBC RBC Hgb Hct MCV MCH MCHC RDW Plt Count MPV Neut % (Auto) Lymph % (Auto) Wells % (Auto) Eos % (Auto) Baso % (Auto) Neut # Lymph # Wells # Eos # Baso # Neutrophils % (Manual) Band Neutrophils % Lymphocytes % (Manual) Monocytes % (Manual) Platelet Estimate RBC Morphology PT INR APTT Puncture Site Rr pCO2 41 pO2 86 HCO3 24.3 ABG pH 7.38 ABG Total CO2 25.6 ABG O2 Saturation 98.6 H ABG Base Excess -0.8 Fish Test Pos ABG Potassium 3.7 A-a O2 Difference 219.0 Respiratory Index 2.5 Sodium 143.0 Chloride 114.0 H Glucose 176 H Lactate 0.7 Mechanical Rate 16 FiO2 50.0 Tidal Volume 450 PEEP 5 Potassium Carbon Dioxide Anion Gap BUN Creatinine Est GFR ( Amer) Est GFR (Non-Af Amer) POC Glucose (mg/dL) 190 H 221 H Random Glucose Calcium Phosphorus Magnesium Total Bilirubin AST ALT Alkaline Phosphatase Total Protein Albumin Globulin Albumin/Globulin Ratio Arterial Blood Potassium 3.7 10/01/16 10/01/16 10/01/16 06:40 12:15 17:15 WBC 10.8 RBC 4.49 Hgb 13.6 Hct 41.1 MCV 91.4 MCH 30.2 MCHC 33.1 RDW 14.5 Plt Count 205 MPV 10.0 Neut % (Auto) 94.5 H Lymph % (Auto) 1.7 L Wells % (Auto) 3.0 Eos % (Auto) 0.1 Baso % (Auto) 0.7 Neut # 10.2 H Lymph # 0.2 L Wells # 0.3 Eos # 0.0 Baso # 0.1 Neutrophils % (Manual) 97 H Band Neutrophils % 1 Lymphocytes % (Manual) 1 L Monocytes % (Manual) 1 Platelet Estimate Normal RBC Morphology Normal PT 11.6 INR 1.0 APTT 23 Puncture Site pCO2 pO2 HCO3 ABG pH ABG Total CO2 ABG O2 Saturation ABG Base Excess Fish Test ABG Potassium A-a O2 Difference Respiratory Index Sodium 144 Chloride 106 Glucose Lactate Mechanical Rate FiO2 Tidal Volume PEEP Potassium 3.9 Carbon Dioxide 24 Anion Gap 18 BUN 53 H Creatinine 1.2 Est GFR ( Amer) 52 Est GFR (Non-Af Amer) 43 POC Glucose (mg/dL) 132 H 126 H Random Glucose 167 H Calcium 7.8 L Phosphorus 4.0 Magnesium 2.2 Total Bilirubin 0.4 AST 43 H D ALT 39 Alkaline Phosphatase 35 L Total Protein 5.3 L Albumin 2.5 L Globulin 2.8 Albumin/Globulin Ratio 0.9 L Arterial Blood Potassium Attending/Attestation - Attestation I have personally seen and examined this patient.: Yes I have fully participated in the care of the patient.: Yes I have reviewed all pertinent clinical information: Yes Notes (Text): Today: Tuesday, September 27, 2016 The Patient was seen and examined at the bedside, Medical records reviewed, all clinical/lab/hemodynamic/radiographic data were reviewed and management issues were discussed and formulated, Events reviewed Pain issues, skin care, head of the bed elevation, GI/DVT prophylaxis, glycemic control were addressed. Agree with above treatment plans as transcribed in Dr. Levy note
[2016-09-27 08:59] LABS: NEUTROPHIL 86 % (50-75); TOTAL CELLS COUNTED 100
[2016-09-27] MEDS: Enoxaparin 40 mg Syringe SC SCH (09:12)
--- NOTE | 2016-09-27 09:29 | RAD ---
HISTORY: ET Tube Eval COMPARISON: 09/26/2016 FINDINGS: LUNGS: Lines and tubes in stable position. Moderate venous congestion. Patchy bibasilar airspace opacities. Biapical pleural thickening with upper lobe granulomatous changes. PLEURA: As above. CARDIOVASCULAR: Cardiomegaly. OSSEOUS STRUCTURES: Degenerative changes in the spine and shoulders. VISUALIZED UPPER ABDOMEN: Normal. OTHER FINDINGS: None. IMPRESSION: Lines and tubes in stable position. Moderate venous congestion. Patchy bibasilar airspace opacities. Biapical pleural thickening with upper lobe granulomatous changes. Cardiomegaly.
[2016-09-27] MEDS: Midazolam 2 MG/2 ML VIAL IVP PRN (12:06)
--- NOTE | 2016-09-27 13:57 | CP.PCM.PN ---
Subjective - Date & Time of Evaluation Date of Evaluation: 09/26/16 Time of Evaluation: 12:26 - Subjective Subjective: Patient was seen and examined at bedside. No acute distress on ventilator. No acute events overnight. Patient was trialed on CPAP yesterday [id number]. Patient had poor inspiratory volumes and was placed back on vent. The patient was again tried on CPAP this morning but could not maintain adequate tidal volume. The patient was placed back on the ventilator at an increased rate to decrease her PCO2. Today, the patients respiratory rate was increased to 16. A CT of the Chest was ordered. Feeds were restarted, and lovenox 40mg sc daily was started for dvt prophylaxis. Objective - Vital Signs/Intake and Output Vital Signs (last 24 hours): Temp Pulse Resp BP Pulse Ox 98.4 F 72 16 168/83 H 97 09/27/16 12:00 09/27/16 13:29 09/27/16 13:29 09/27/16 13:29 09/27/16 13:29 Intake and Output: 09/27/16 09/27/16 06:59 18:59 Intake Total 2584 1126.7 Output Total 500 495 Balance 2084 631.7 - Medications Medications: Current Medications Albuterol/Ipratropium (Duoneb 3 Mg/0.5 Mg (3 Ml) Ud) 3 ml INH RQ4 [facility] Last Admin: 09/27/16 12:30 Dose: 3 ml Aspirin (Aspirin Chewable) 81 mg PO DAILY [facility] Last Admin: 09/27/16 09:13 Dose: 81 mg Clopidogrel Bisulfate (Plavix) 75 mg PO DAILY [facility] Last Admin: 09/27/16 09:13 Dose: 75 mg Diltiazem HCl (Cardizem) 30 mg PO Q6H [facility] Last Admin: 09/27/16 09:16 Dose: 30 mg Enoxaparin Sodium (Lovenox) 40 mg SC DAILY [facility] Last Admin: 09/27/16 09:12 Dose: 40 mg Famotidine (Pepcid) 20 mg IVP DAILY [facility] Last Admin: 09/27/16 09:12 Dose: 20 mg Hydralazine HCl (Apresoline) 10 mg IVP Q6H PRN PRN Reason: HYPERTENSION Ceftriaxone Sodium 2 gm/ (Sodium Chloride) 100 mls @ 100 mls/hr IVPB Q24H [facility] Last Admin: 09/26/16 22:41 Dose: 100 mls/hr Azithromycin 500 mg/ Sodium (Chloride) 250 mls @ 250 mls/hr IVPB Q24H [facility] Last Admin: 09/26/16 21:52 Dose: 250 mls/hr Sodium Chloride (Sodium Chloride 0.9%) 1,000 mls @ 100 mls/hr IV .Q10H [facility] Last Admin: 09/27/16 11:39 Dose: 100 mls/hr Dexmedetomidine HCl 200 mcg/ (Sodium Chloride) 50 mls @ 3.65 mls/hr IVPB TITR PRN; Protocol; 0.2 MCG/KG/HR PRN Reason: Agitation Last Admin: 09/27/16 12:52 Dose: 27.37 mls/hr Insulin Human Regular (Novolin R) 0 unit SC Q6 [facility] PRN Reason: Protocol Last Admin: 09/27/16 12:01 Dose: 2 unit Lisinopril (Zestril) 10 mg NG DAILY [facility] Last Admin: 09/27/16 09:13 Dose: 10 mg Methylprednisolone (Solu-Medrol) 40 mg IV Q8 [facility] Last Admin: 09/27/16 05:45 Dose: 40 mg Midazolam HCl (Versed Inj) 2 mg IVP Q4H PRN PRN Reason: Agitation Last Admin: 09/27/16 12:06 Dose: 2 mg Nicotine (Nicoderm Cq) 1 patch TD DAILY [facility] Last Admin: 09/27/16 09:13 Dose: 1 patch Rosuvastatin Calcium (Crestor) 10 mg PO HS [facility] Last Admin: 09/26/16 21:13 Dose: 10 mg - Labs Labs: 09/27/16 06:26 09/27/16 06:26 PT 10.9 SECONDS (9.7-12.2) 09/27/16 06:26 INR 1.0 09/27/16 06:26 APTT 29 SECONDS (21-34) 09/27/16 06:26 - Constitutional Appears: Well, Chronically Ill - Head Exam Head Exam: ATRAUMATIC, NORMAL INSPECTION, NORMOCEPHALIC - Eye Exam Eye Exam: EOMI, Normal appearance, PERRL Pupil Exam: NORMAL ACCOMODATION, PERRL - Respiratory Exam Respiratory Exam: Clear to Ausculation Bilateral, NORMAL BREATHING PATTERN - Cardiovascular Exam Cardiovascular Exam: REGULAR RHYTHM, +S1, +S2. absent: Murmur - GI/Abdominal Exam GI & Abdominal Exam: Soft, Normal Bowel Sounds. absent: Tenderness - Neurological Exam Neurological Exam: Alert, Awake, CN II-XII Intact, Normal Gait, Oriented x3 - Skin Skin Exam: Dry, Intact, Normal Color, Warm Assessment and Plan (1) Acute respiratory failure with hypoxia and hypercarbia Status: Resolved (2) Altered mental status Status: Resolved (3) Acute MA Status: Acute
[2016-09-27] MEDS: Azithromycin 500 MG in Sodium Chloride 0.9% 250 ML IVPB SCH (21:45)
[2016-09-27] MEDS: Dexmedetomidine Hydrochloride 400 MCG in Sodium Chloride 0.9% 96 ML IVPB PRN (22:21)
[2016-09-27] MEDS: cefTRIAXone 2 GM in Sodium Chloride 0.9% 100 ML IVPB SCH (22:30)
--- NOTE | 2016-09-27 23:45 | CP.PCM.PN ---
Subjective - Date & Time of Evaluation Date of Evaluation: 09/27/16 Time of Evaluation: 12:28 - Subjective Subjective: Pt seen & evaluated, remains on MV, non weanable,Patient remains intubated (TV 450mL, FiO2 50%, Rate 16, PEEP 5) and sedated 0.2mcg/kg/hr on prededex. The patient has bee trialed x2 with CPAP and not tolerated. The patient has continued to have a respiratory acidosis. The patient was tachycardic 5mg of Lopressor was given IV x1 and Cardizem 30mg PO q6 was started. Today, the patient was started on lisinopril for HTN. Hydralazine IV was added PRN for HTN coverage for SBP >170mmHg. The patient was again tried on CPAP but could not tolerate the transition and thus was put back on PRVC. Objective - Vital Signs/Intake and Output Vital Signs (last 24 hours): Temp Pulse Resp BP Pulse Ox 98.9 F 96 H 18 151/74 H 99 09/27/16 20:00 09/27/16 20:00 09/27/16 20:00 09/27/16 19:29 09/27/16 20:00 Intake and Output: 09/27/16 09/28/16 18:59 06:59 Intake Total 2242.0 164.8 Output Total 1180 820 Balance 1062.0 -655.2 - Medications Medications: Current Medications Albuterol/Ipratropium (Duoneb 3 Mg/0.5 Mg (3 Ml) Ud) 3 ml INH RQ4 [facility] Last Admin: 09/27/16 19:18 Dose: 3 ml Aspirin (Aspirin Chewable) 81 mg PO DAILY [facility] Last Admin: 09/27/16 09:13 Dose: 81 mg Clopidogrel Bisulfate (Plavix) 75 mg PO DAILY [facility] Last Admin: 09/27/16 09:13 Dose: 75 mg Diltiazem HCl (Cardizem) 30 mg PO Q6H [facility] Last Admin: 09/27/16 22:28 Dose: 30 mg Enoxaparin Sodium (Lovenox) 40 mg SC DAILY [facility] Last Admin: 09/27/16 09:12 Dose: 40 mg Famotidine (Pepcid) 20 mg IVP DAILY [facility] Last Admin: 09/27/16 09:12 Dose: 20 mg Hydralazine HCl (Apresoline) 10 mg IVP Q6H PRN PRN Reason: HYPERTENSION Ceftriaxone Sodium 2 gm/ (Sodium Chloride) 100 mls @ 100 mls/hr IVPB Q24H [facility] Last Admin: 09/27/16 22:30 Dose: 100 mls/hr Azithromycin 500 mg/ Sodium (Chloride) 250 mls @ 250 mls/hr IVPB Q24H [facility] Last Admin: 09/27/16 21:45 Dose: 250 mls/hr Dexmedetomidine HCl 400 mcg/ (Sodium Chloride) 100 mls @ 3.65 mls/hr IVPB TITR PRN; Protocol; 0.2 MCG/KG/HR PRN Reason: Agitation Last Admin: 09/27/16 22:21 Dose: 27.4 mls/hr Insulin Human Regular (Novolin R) 0 unit SC Q6 [facility] PRN Reason: Protocol Last Admin: 09/27/16 18:36 Dose: 2 unit Lisinopril (Zestril) 10 mg NG DAILY [facility] Last Admin: 09/27/16 09:13 Dose: 10 mg Methylprednisolone (Solu-Medrol) 40 mg IV Q8 [facility] Last Admin: 09/27/16 22:26 Dose: 40 mg Midazolam HCl (Versed Inj) 2 mg IVP Q4H PRN PRN Reason: Agitation Last Admin: 09/27/16 12:06 Dose: 2 mg Nicotine (Nicoderm Cq) 1 patch TD DAILY [facility] Last Admin: 09/27/16 09:13 Dose: 1 patch Rosuvastatin Calcium (Crestor) 10 mg PO HS [facility] Last Admin: 09/27/16 22:29 Dose: 10 mg - Labs Labs: 09/27/16 06:26 09/27/16 06:26 PT 10.9 SECONDS (9.7-12.2) 09/27/16 06:26 INR 1.0 09/27/16 06:26 APTT 29 SECONDS (21-34) 09/27/16 06:26 - Constitutional Appears: No Acute Distress, Chronically Ill - Head Exam Head Exam: ATRAUMATIC, NORMAL INSPECTION, NORMOCEPHALIC - Eye Exam Eye Exam: EOMI, Normal appearance, PERRL Pupil Exam: NORMAL ACCOMODATION, PERRL - ENT Exam ENT Exam: Mucous Membranes Moist - Respiratory Exam Respiratory Exam: Clear to Ausculation Bilateral, NORMAL BREATHING PATTERN - Cardiovascular Exam Cardiovascular Exam: REGULAR RHYTHM, +S1, +S2. absent: Murmur - GI/Abdominal Exam GI & Abdominal Exam: Soft, Normal Bowel Sounds. absent: Tenderness Assessment and Plan (1) Acute respiratory failure with hypoxia and hypercarbia Status: Resolved (2) Altered mental status Status: Resolved (3) Acute HI Status: Acute
[2016-09-28] MEDS: Albuterol-Ipratrop 3 mg / 0.5 (3 ml) UD INH SCH ×6 (00:06→20:23)
[2016-09-28] MEDS: (Novolin R) Insulin Human Regular 100 units/ml vial SC SCH ×4 (01:00→18:25)
[2016-09-28] MEDS: Dexmedetomidine Hydrochloride 400 MCG in Sodium Chloride 0.9% 96 ML IVPB PRN ×7 (02:35→23:53)
[2016-09-28 05:35] LABS: ABG ALLEN TEST POS; ABG MECHANICAL RATE 16; ARTERIAL BLOOD HGB O2 SAT 95.9 % (95.0-98.0); ATERIAL BLOOD GAS PEEP 5; CARBOXYHEMOGLOBIN 1.7 % (0.5-1.5); DRAW SITE RRAD; HHB 1.4 % (0.0-5.0)
[2016-09-28] MEDS: MethylPREDNISolone 40 mg Vial IV SCH ×3 (06:02→23:28)
[2016-09-28 06:31] LABS: BASO % 0.3 % (0.0-2.0); LYMPH # 0.4 K/uL (1.0-4.3); MEAN CELL VOLUME 92.1 fL (81.0-99.0); MEAN CORPUSCULAR HEMOGLOBIN 30.6 pg (27.0-31.0); MEAN CORPUSCULAR HGB CONC 33.2 g/dL (33.0-37.0); MEAN PLATELET VOLUME 9.2 fL (7.2-11.7); MONO # 0.4 K/uL (0.0-0.8); MONO % 4.7 % (0.0-10.0); PLATELET COUNT 187 K/uL (130-400); RED CELL DISTRIBUTION WIDTH 14.9 % (11.5-14.5)
[2016-09-28 06:46] LABS: POTASSIUM 3.3 mmol/L (3.6-5.2)
[2016-09-28 06:49] LABS: ALB/GLOB RATIO 1.1 (1.0-2.1); BILIRUBIN,TOTAL 0.4 mg/dL (0.2-1.3); PHOSPHOROUS 2.9 mg/dL (2.5-4.5); TOTAL PROTEIN 5.6 g/dL (6.3-8.3)
[2016-09-28 06:50] LABS: MAGNESIUM 1.9 mg/dL (1.6-2.3)
[2016-09-28 09:16] LABS: NEUTROPHIL 94 % (50-75); TOTAL CELLS COUNTED 100
[2016-09-28] MEDS: Enoxaparin 40 mg Syringe SC SCH (09:49)
[2016-09-28] MEDS ORDERED: Potassium Chloride 20 mEq/15 ml LIQ UD PO ONE (10:00)
--- NOTE | 2016-09-28 11:13 | RAD ---
HISTORY: intubated COMPARISON: Comparison is made to the previous study dated 09/27/2016 FINDINGS: LUNGS: Interval worsening of heterogeneous opacities at the right lower lung since the previous exam. The ET tube is seen at appropriate position. PLEURA: No significant pleural effusion identified, no pneumothorax apparent. CARDIOVASCULAR: Cardiomegaly is again noted. OSSEOUS STRUCTURES: No significant abnormalities. VISUALIZED UPPER ABDOMEN: The NG tube seen extending to the stomach. OTHER FINDINGS: None. IMPRESSION: Interval worsening of heterogeneous opacities at the right lower lung since the previous exam. Appropriate position of the ETT and NG tube.
[2016-09-28] MEDS: Midazolam 2 MG/2 ML VIAL IVP PRN (12:37)
--- NOTE | 2016-09-28 18:49 | CP.PCM.PN ---
Subjective - Date & Time of Evaluation Date of Evaluation: 09/28/16 Time of Evaluation: 18:48 - Subjective Subjective: Patient is still on ventilator. Awake and responding. Abdominal distention noted, patient did not have any bowel movements yet. Currently started on fluids. She's also receiving NG tube feeding at this time. No chest pain. On ventilator Vital signs reviewed chest good air entry bilaterally regular heart sound nontender abdomen but the tympanic in character, no BM noted. Edema noted Labs reviewed X-ray reviewed Bilateral lower lung infiltrate changes noted, assessment and recommendation: 85-year-old female admitted with acute exacerbation of COPD, acute respiratory failure on ventilator, currently on corticosteroids, broncho-dilator, on oxygen We will continue the current treatment, not able to extubate yet and will follow the patient Objective - Vital Signs/Intake and Output Vital Signs (last 24 hours): Temp Pulse Resp BP Pulse Ox 98.0 F 73 16 176/95 H 97 09/28/16 16:00 09/28/16 16:01 09/28/16 16:01 09/28/16 16:01 09/28/16 16:01 Intake and Output: 09/28/16 09/28/16 06:59 18:59 Intake Total 1088.8 737.6 Output Total 2070 465 Balance -981.2 272.6 - Medications Medications: Current Medications Albuterol/Ipratropium (Duoneb 3 Mg/0.5 Mg (3 Ml) Ud) 3 ml INH RQ4 [facility] Last Admin: 09/28/16 11:59 Dose: 3 ml Aspirin (Aspirin Chewable) 81 mg PO DAILY [facility] Last Admin: 09/28/16 09:49 Dose: 81 mg Clopidogrel Bisulfate (Plavix) 75 mg PO DAILY [facility] Last Admin: 09/28/16 09:49 Dose: 75 mg Diltiazem HCl (Cardizem) 30 mg PO Q6H [facility] Last Admin: 09/28/16 16:50 Dose: 30 mg Enoxaparin Sodium (Lovenox) 40 mg SC DAILY [facility] Last Admin: 09/28/16 09:49 Dose: 40 mg Famotidine (Pepcid) 20 mg IVP DAILY [facility] Last Admin: 09/28/16 09:49 Dose: 20 mg Hydralazine HCl (Apresoline) 10 mg IVP Q6H PRN PRN Reason: HYPERTENSION Last Admin: 09/28/16 16:50 Dose: 10 mg Ceftriaxone Sodium 2 gm/ (Sodium Chloride) 100 mls @ 100 mls/hr IVPB Q24H [facility] Last Admin: 09/27/16 22:30 Dose: 100 mls/hr Azithromycin 500 mg/ Sodium (Chloride) 250 mls @ 250 mls/hr IVPB Q24H [facility] Last Admin: 09/27/16 21:45 Dose: 250 mls/hr Dexmedetomidine HCl 400 mcg/ (Sodium Chloride) 100 mls @ 3.65 mls/hr IVPB TITR PRN; Protocol; 0.2 MCG/KG/HR PRN Reason: Agitation Last Admin: 09/28/16 16:49 Dose: 27.8 mls/hr Insulin Human Regular (Novolin R) 0 unit SC Q6 [facility] PRN Reason: Protocol Last Admin: 09/28/16 11:51 Dose: Not Given Lisinopril (Zestril) 10 mg NG DAILY [facility] Last Admin: 09/28/16 09:49 Dose: 10 mg Methylprednisolone (Solu-Medrol) 40 mg IV Q8 [facility] Last Admin: 09/28/16 14:04 Dose: 40 mg Midazolam HCl (Versed Inj) 2 mg IVP Q4H PRN PRN Reason: Agitation Last Admin: 09/28/16 12:37 Dose: 2 mg Nicotine (Nicoderm Cq) 1 patch TD DAILY [facility] Last Admin: 09/28/16 09:48 Dose: 1 patch Rosuvastatin Calcium (Crestor) 10 mg PO HS [facility] Last Admin: 09/27/16 22:29 Dose: 10 mg - Labs Labs: 09/28/16 06:16 09/28/16 06:16 PT 11.6 SECONDS (9.7-12.2) 09/28/16 06:16 INR 1.0 09/28/16 06:16 APTT 28 SECONDS (21-34) 09/28/16 06:16
[2016-09-28] MEDS: Azithromycin 500 MG in Sodium Chloride 0.9% 250 ML IVPB SCH (21:19)
--- NOTE | 2016-09-28 23:13 | CP.PCM.PN ---
Subjective - Date & Time of Evaluation Date of Evaluation: 09/28/16 Time of Evaluation: 12:29 - Subjective Subjective: Patient is still on ventilator. Awake and responding. Abdominal distention noted, patient did not have any bowel movements yet. Currently started on fluids. She's also receiving NG tube feeding at this time. No chest pain. On ventilator Vital signs reviewed chest good air entry bilaterally regular heart sound nontender abdomen but the tympanic in character, no BM noted. Edema noted Labs reviewed X-ray reviewed Bilateral lower lung infiltrate changes noted, assessment and recommendation: 85-year-old female admitted with acute exacerbation of COPD, acute respiratory failure on ventilator, currently on corticosteroids, broncho-dilator, on oxygen We will continue the current treatment, not able to extubate yet and will follow the patient Objective - Vital Signs/Intake and Output Vital Signs (last 24 hours): Temp Pulse Resp BP Pulse Ox 98.0 F 90 16 145/68 95 09/28/16 16:00 09/28/16 22:01 09/28/16 22:01 09/28/16 22:01 09/28/16 22:01 Intake and Output: 09/28/16 09/29/16 18:59 06:59 Intake Total 1003.2 249.6 Output Total 475 140 Balance 528.2 109.6 - Medications Medications: Current Medications Aspirin (Aspirin Chewable) 81 mg PO DAILY [facility] Last Admin: 09/28/16 09:49 Dose: 81 mg Clopidogrel Bisulfate (Plavix) 75 mg PO DAILY [facility] Last Admin: 09/28/16 09:49 Dose: 75 mg Diltiazem HCl (Cardizem) 30 mg PO Q6H [facility] Last Admin: 09/28/16 21:18 Dose: 30 mg Enoxaparin Sodium (Lovenox) 40 mg SC DAILY [facility] Last Admin: 09/28/16 09:49 Dose: 40 mg Famotidine (Pepcid) 20 mg IVP DAILY [facility] Last Admin: 09/28/16 09:49 Dose: 20 mg Hydralazine HCl (Apresoline) 10 mg IVP Q6H PRN PRN Reason: HYPERTENSION Last Admin: 09/28/16 16:50 Dose: 10 mg Ceftriaxone Sodium 2 gm/ (Sodium Chloride) 100 mls @ 100 mls/hr IVPB Q24H [facility] Last Admin: 09/27/16 22:30 Dose: 100 mls/hr Azithromycin 500 mg/ Sodium (Chloride) 250 mls @ 250 mls/hr IVPB Q24H [facility] Last Admin: 09/28/16 21:19 Dose: 250 mls/hr Dexmedetomidine HCl 400 mcg/ (Sodium Chloride) 100 mls @ 3.65 mls/hr IVPB TITR PRN; Protocol; 0.2 MCG/KG/HR PRN Reason: Agitation Last Admin: 09/28/16 20:50 Dose: 37 mls/hr Insulin Human Regular (Novolin R) 0 unit SC Q6 [facility] PRN Reason: Protocol Last Admin: 09/28/16 18:25 Dose: Not Given Lisinopril (Zestril) 10 mg NG DAILY [facility] Last Admin: 09/28/16 09:49 Dose: 10 mg Methylprednisolone (Solu-Medrol) 40 mg IV Q8 [facility] Last Admin: 09/28/16 14:04 Dose: 40 mg Midazolam HCl (Versed Inj) 2 mg IVP Q4H PRN PRN Reason: Agitation Last Admin: 09/28/16 12:37 Dose: 2 mg Nicotine (Nicoderm Cq) 1 patch TD DAILY [facility] Last Admin: 09/28/16 09:48 Dose: 1 patch Rosuvastatin Calcium (Crestor) 10 mg PO HS [facility] Last Admin: 09/28/16 21:18 Dose: 10 mg - Labs Labs: 09/28/16 06:16 09/28/16 06:16 PT 11.6 SECONDS (9.7-12.2) 09/28/16 06:16 INR 1.0 09/28/16 06:16 APTT 28 SECONDS (21-34) 09/28/16 06:16 - Constitutional Appears: No Acute Distress, Chronically Ill - Eye Exam Eye Exam: EOMI, Normal appearance, PERRL Pupil Exam: NORMAL ACCOMODATION, PERRL - Respiratory Exam Respiratory Exam: Decreased Breath Sounds, Rhonchi - Cardiovascular Exam Cardiovascular Exam: REGULAR RHYTHM, +S1, +S2. absent: Murmur - GI/Abdominal Exam GI & Abdominal Exam: Soft, Normal Bowel Sounds. absent: Tenderness Assessment and Plan (1) Acute respiratory failure with hypoxia and hypercarbia Status: Resolved (2) Altered mental status Status: Resolved (3) Acute RI Status: Acute - Assessment and Plan (Free Text) Assessment: - Assessment and Plan (Free Text) Assessment: This is an 86 y/o female with a suspected PMH of smoking, COPD, and HTN presenting with respiratory failure and hypercarbic encephalopathy. Today, plan for extubation and possible cath with Dr. Mendes. The patient will undergo a fluid challenge for acute rise in BUN/Cr. Patient failed trial of CPAP. Continue on vent with increased rate to resolve respiratory acidosis. The patient was again tried on CPAP 15/5 but could not tolerate the transition and thus was put back on PRVC. Plan: Neuro: Patient awakens to voice and responds to command. Sedation discontinued Denies pain or discomfort 09/23/16 CT Head- Generalized atrophy. Nonspecific white matter changes. Nicotine patch 21mg ordered for tobacco abuse disorder Sedation: Precedex 1mcg/kg/hr Cardiovascular: Irregularly Irregular rate Normal rhythm HTN Troponin- 0.2400 > 0.2480 > 0.2490 09/24/16 ECHO- LV normal systolic function, normal chamber size, mild/trace triscupid regurg 09/23/16 EKG- sinus tachycardia with PACs, low voltage QRS, possible anteroseptal infarct age undetermined- official read pending Suspect elevated troponin due to demand ischemia IVF- NS @ 100ml/hr Patient refusing cath 300mg Plavix loading dose given 09/25/16 75mg PO daily plavix Cardizem 20mg PO Q6 Lisinopril 20mg po daily Aspirin 81mg po daily Rouvastatin 10mg po hs Hydralazine 10mg IVP q6 PRN SBP >170 Pulmonary: Solumedrol 40mg IV q8 Duoneb q4 Imagin09/27/16 CXR- ET Tube proximal to the vicente. OG tube distal to diaphragm. Hazy bibasilar atelectasis. 09/26/16 CXR- Lines and tubes in stable position. Biapical pleural thickening with upper lobe granulomatous changes. Mild venous congestion. Chronic interstitial lung markings. Bibasilar airspace opacities 09/26/16 CT Chest- Small pleural effusions in atelectasis likely compressive bilaterally. Otherwise no significant pulmonary abnormalities. Underlying COPD and evidence of lower airway disease. Satisfactory position of support apparatus 09/25/16 CXR- ET tube in good position- official read pending 09/24/16 CXR- mild venous congestion 09/23/16 CXR- Probable Mach artifact with linear lucency in the left mid susie thorax. Mild venous congestion. Elevated right hemidiaphragm. Right hilar prominence. Endotracheal tube extending into the mid thoracic trachea. NG tube extending into the stomach. 09/23/16 CXR- Biapical pleural thickening with upper lobe granulomatous changes. Some airspace opacification at the right lung apex and right hilar region. Scattered nodularity in both lungs most predominant at the lung bases. Increased markings at the lung bases which may represent some patchy atelectasis. Ventilator settings: PRVC 16/1L/50/5 AB09/27/16 pH 7.27, CO2 45, O2 87, HCO3 20.1 09/26/16 (11:45) pH 7.24, CO2 57, O2 65, HCO3 21.8 09/26/16 (05:09) pH 7.28, CO2 50, O2 85, HCO3 22 09/25/16 pH 7.28, CO2 53, O2 113, HCO3 23 09/24/16 pH 7.32, CO2 54, O2 352, HCO3 25.4 09/23/16 O2 345 09/23/16 pH 7.22, CO2 80, O2 377, HCO3 26.9 GI: Protonix 40mg IV daily Hematology: No leukocytosis Hgb/Hct stable Bandemia improving 14 > 6 > 0 Endocrine: maintain euglycemia HbA1c- 5.9 CK- 3005 IVF- NS @ 100ml/hr Renal: Actue rise in BUN/Cr: improving - continue IVF Hypokalemia- resolved Hypomagnesemia- resolved IVF- NS @ 100ml/hr ID: No leukocytosis U/A negative Day 5 Rocephin 2g IV daily- start 09/23/16 Day 4 Azithromycin 500mg IV daily- start 09/24/16 : None MSK: None GI Prophylaxis- Carafate 1g po daily DVT Prophylaxis- lovenox 40mg sc daily
[2016-09-28] MEDS: cefTRIAXone 2 GM in Sodium Chloride 0.9% 100 ML IVPB SCH (23:28)
[2016-09-29] MEDS: (Novolin R) Insulin Human Regular 100 units/ml vial SC SCH ×4 (01:56→18:34)
[2016-09-29] MEDS: Dexmedetomidine Hydrochloride 400 MCG in Sodium Chloride 0.9% 96 ML IVPB PRN ×6 (03:13→22:11)
[2016-09-29 05:41] LABS: ABG ALLEN TEST POS; ABG MECHANICAL RATE 16; ARTERIAL BLOOD HGB O2 SAT 96.2 % (95.0-98.0); ATERIAL BLOOD GAS PEEP 5; CARBOXYHEMOGLOBIN 1.4 % (0.5-1.5); DRAW SITE RRAD; HHB 1.2 % (0.0-5.0); METHEMOGLOBIN 1.2 % (0.0-3.0)
[2016-09-29] MEDS: MethylPREDNISolone 40 mg Vial IV SCH ×3 (06:20→22:17)
[2016-09-29 06:50] LABS: BASO % 0.1 % (0.0-2.0); HEMATOCRIT 40.7 % (34.0-47.0); LYMPH # 0.5 K/uL (1.0-4.3); LYMPH % 5.4 % (20.0-40.0); MEAN CELL VOLUME 91.3 fL (81.0-99.0); MEAN CORPUSCULAR HEMOGLOBIN 30.8 pg (27.0-31.0); MEAN CORPUSCULAR HGB CONC 33.7 g/dL (33.0-37.0); MEAN PLATELET VOLUME 9.4 fL (7.2-11.7); MONO # 0.3 K/uL (0.0-0.8); MONO % 2.8 % (0.0-10.0); PLATELET COUNT 195 K/uL (130-400); WHITE BLOOD COUNT 9.7 K/uL (4.8-10.8)
[2016-09-29 07:00] LABS: INR 1.1
[2016-09-29 07:01] LABS: BILIRUBIN,TOTAL 0.5 mg/dL (0.2-1.3); PHOSPHOROUS 3.2 mg/dL (2.5-4.5); TOTAL PROTEIN 5.2 g/dL (6.3-8.3)
[2016-09-29 07:02] LABS: CALCIUM 8.1 mg/dl (8.6-10.4); MAGNESIUM 1.9 mg/dL (1.6-2.3)
[2016-09-29 08:35] LABS: NEUTROPHIL 91 % (50-75); TOTAL CELLS COUNTED 100
[2016-09-29] MEDS: Enoxaparin 40 mg Syringe SC SCH (10:18)
[2016-09-29] MEDS ORDERED: Mineral Oil Enema 135 ml RC ONE (10:42)
--- NOTE | 2016-09-29 11:23 | RAD ---
HISTORY: ileus COMPARISON: No prior. FINDINGS: BOWEL: Moderately dilated bowel loops at the mid and upper abdomen. The NG tube seen extending to the stomach. The stomach is not significantly dilated. BONES: Osteopenia and degenerative changes are noted. OTHER FINDINGS: None. IMPRESSION: Moderately dilated bowel loops at the mid to upper abdomen right more than left. If clinically warranted further assessment by CT is suggested.
--- NOTE | 2016-09-29 11:35 | RAD ---
HISTORY: follow up COMPARISON: Comparison is made to the previous study dated 09/28/2016 FINDINGS: LUNGS: Interval improvement in the right lung since the previous study. The ET tube is seen at appropriate position. PLEURA: No significant pleural effusion identified, no pneumothorax apparent. CARDIOVASCULAR: The cardiac silhouette is mildly enlarged P OSSEOUS STRUCTURES: No significant abnormalities. VISUALIZED UPPER ABDOMEN: NG tube seen extending to the abdomen. OTHER FINDINGS: None. IMPRESSION: Interval improvement in the right lung since the previous exam.
--- NOTE | 2016-09-29 15:36 | CP.PCM.PN ---
Subjective - Date & Time of Evaluation Date of Evaluation: 09/29/16 Time of Evaluation: 14:30 - Subjective Subjective: Patient seen and examined in the intensive care unit. Remains intubated on ventilatory support not tolerating weaning Distention of abdomen noted Tolerating feeding Afebrile open eyes to stimuli Objective - Vital Signs/Intake and Output Vital Signs (last 24 hours): Temp Pulse Resp BP Pulse Ox 97.8 F 66 16 167/81 H 98 09/29/16 12:00 09/29/16 15:01 09/29/16 15:01 09/29/16 15:01 09/29/16 15:01 Intake and Output: 09/29/16 09/29/16 06:59 18:59 Intake Total 886.6 550 Output Total 545 385 Balance 341.6 165 - Medications Medications: Current Medications Amlodipine Besylate (Norvasc) 10 mg PO DAILY [facility] Last Admin: 09/29/16 10:19 Dose: 10 mg Aspirin (Aspirin Chewable) 81 mg PO DAILY [facility] Last Admin: 09/29/16 10:19 Dose: 81 mg Clopidogrel Bisulfate (Plavix) 75 mg PO DAILY [facility] Last Admin: 09/29/16 10:19 Dose: 75 mg Diltiazem HCl (Cardizem) 30 mg PO Q6H [facility] Last Admin: 09/29/16 10:19 Dose: 30 mg Enoxaparin Sodium (Lovenox) 40 mg SC DAILY [facility] Last Admin: 09/29/16 10:18 Dose: 40 mg Famotidine (Pepcid) 20 mg PO DAILY [facility] Last Admin: 09/29/16 10:19 Dose: 20 mg Ceftriaxone Sodium 2 gm/ (Sodium Chloride) 100 mls @ 100 mls/hr IVPB Q24H [facility] Last Admin: 09/28/16 23:28 Dose: 100 mls/hr Azithromycin 500 mg/ Sodium (Chloride) 250 mls @ 250 mls/hr IVPB Q24H [facility] Last Admin: 09/28/16 21:19 Dose: 250 mls/hr Dexmedetomidine HCl 400 mcg/ (Sodium Chloride) 100 mls @ 3.65 mls/hr IVPB TITR PRN; Protocol; 0.2 MCG/KG/HR PRN Reason: Agitation Last Admin: 09/29/16 14:26 Dose: 30 mls/hr Insulin Human Regular (Novolin R) 0 unit SC Q6 [facility] PRN Reason: Protocol Last Admin: 09/29/16 12:03 Dose: 2 unit Lisinopril (Zestril) 20 mg NG DAILY [facility] Last Admin: 09/29/16 10:19 Dose: 20 mg Methylprednisolone (Solu-Medrol) 40 mg IV Q12 [facility] Last Admin: 09/29/16 10:18 Dose: 40 mg Midazolam HCl (Versed Inj) 2 mg IVP Q4H PRN PRN Reason: Agitation Last Admin: 09/28/16 12:37 Dose: 2 mg Nicotine (Nicoderm Cq) 1 patch TD DAILY [facility] Last Admin: 09/29/16 10:19 Dose: 1 patch Rosuvastatin Calcium (Crestor) 10 mg PO HS [facility] Last Admin: 09/28/16 21:18 Dose: 10 mg - Labs Labs: 09/29/16 06:38 09/29/16 06:38 PT 12.2 SECONDS (9.7-12.2) 09/29/16 06:38 INR 1.1 09/29/16 06:38 APTT 24 SECONDS (21-34) 09/29/16 06:38 - Head Exam Head Exam: ATRAUMATIC, NORMOCEPHALIC - Eye Exam Eye Exam: Normal appearance - ENT Exam ENT Exam: Mucous Membranes Moist - Neck Exam Neck Exam: Normal Inspection - Respiratory Exam Respiratory Exam: Decreased Breath Sounds - Cardiovascular Exam Cardiovascular Exam: REGULAR RHYTHM - GI/Abdominal Exam GI & Abdominal Exam: Soft, Normal Bowel Sounds - Extremities Exam Extremities Exam: Normal Inspection Assessment and Plan (1) Acute respiratory failure with hypoxia and hypercarbia Assessment & Plan: wean as tolerated Continue antibiotics IV steroids and bronchodilators Oral feeding CT of the abdomen Status: Acute (2) Acute [place] Status: Acute
[2016-09-29] MEDS: Midazolam 2 MG/2 ML VIAL IVP PRN ×2 (16:30→20:30)
--- NOTE | 2016-09-29 17:47 | CP.PCM.PN ---
Subjective - Date & Time of Evaluation Date of Evaluation: 09/29/16 Time of Evaluation: 17:47 - Subjective Subjective: Patient is still having abdominal distention. Minimal amount of stool came out last night. Patient is somewhat distress with the CPAP this morning. Currently sedated. After the anymore no BM noted. X-ray of the abdomen showing evidence of ileus. On examination: Vital signs reviewed Chest good air entry. Regular heart sound tympanic abdomen, distention present Edema negative Chest x-ray showing bilateral lower lobe infiltrate Labs reviewed Assessment and recommendation: 85-year-old female with history of COPD non-ST elevation [place] admitted with respiratory failure. Unable to wean. We'll start the patient on lactulose, CT of the abdomen and pelvis ordered and will follow the patient overall prognosis is poor Objective - Vital Signs/Intake and Output Vital Signs (last 24 hours): Temp Pulse Resp BP Pulse Ox 97.8 F 66 16 167/81 H 98 09/29/16 12:00 09/29/16 15:01 09/29/16 15:01 09/29/16 15:01 09/29/16 15:01 Intake and Output: 09/29/16 09/29/16 06:59 18:59 Intake Total 886.6 550 Output Total 545 385 Balance 341.6 165 - Medications Medications: Current Medications Amlodipine Besylate (Norvasc) 10 mg PO DAILY [facility] Last Admin: 09/29/16 10:19 Dose: 10 mg Aspirin (Aspirin Chewable) 81 mg PO DAILY [facility] Last Admin: 09/29/16 10:19 Dose: 81 mg Clopidogrel Bisulfate (Plavix) 75 mg PO DAILY [facility] Last Admin: 09/29/16 10:19 Dose: 75 mg Diltiazem HCl (Cardizem) 30 mg PO Q6H [facility] Last Admin: 09/29/16 16:30 Dose: 30 mg Enoxaparin Sodium (Lovenox) 40 mg SC DAILY [facility] Last Admin: 09/29/16 10:18 Dose: 40 mg Famotidine (Pepcid) 20 mg PO DAILY [facility] Last Admin: 09/29/16 10:19 Dose: 20 mg Ceftriaxone Sodium 2 gm/ (Sodium Chloride) 100 mls @ 100 mls/hr IVPB Q24H [facility] Last Admin: 09/28/16 23:28 Dose: 100 mls/hr Azithromycin 500 mg/ Sodium (Chloride) 250 mls @ 250 mls/hr IVPB Q24H [facility] Last Admin: 09/28/16 21:19 Dose: 250 mls/hr Dexmedetomidine HCl 400 mcg/ (Sodium Chloride) 100 mls @ 3.65 mls/hr IVPB TITR PRN; Protocol; 0.2 MCG/KG/HR PRN Reason: Agitation Last Admin: 09/29/16 14:26 Dose: 30 mls/hr Insulin Human Regular (Novolin R) 0 unit SC Q6 [facility] PRN Reason: Protocol Last Admin: 09/29/16 12:03 Dose: 2 unit Lisinopril (Zestril) 20 mg NG DAILY [facility] Last Admin: 09/29/16 10:19 Dose: 20 mg Methylprednisolone (Solu-Medrol) 40 mg IV Q12 [facility] Last Admin: 09/29/16 10:18 Dose: 40 mg Midazolam HCl (Versed Inj) 2 mg IVP Q4H PRN PRN Reason: Agitation Last Admin: 09/29/16 16:30 Dose: 2 mg Nicotine (Nicoderm Cq) 1 patch TD DAILY [facility] Last Admin: 09/29/16 10:19 Dose: 1 patch Rosuvastatin Calcium (Crestor) 10 mg PO HS [facility] Last Admin: 09/28/16 21:18 Dose: 10 mg - Labs Labs: 09/29/16 06:38 09/29/16 06:38 PT 12.2 SECONDS (9.7-12.2) 09/29/16 06:38 INR 1.1 09/29/16 06:38 APTT 24 SECONDS (21-34) 09/29/16 06:38
[2016-09-29] MEDS ORDERED: Iohexol 240 (50 ml) PO ONE (20:33)
[2016-09-29] MEDS: Azithromycin 500 MG in Sodium Chloride 0.9% 250 ML IVPB SCH (22:07)
--- NOTE | 2016-09-29 22:07 | CP.PCM.PN ---
Subjective - Date & Time of Evaluation Date of Evaluation: 09/29/16 Time of Evaluation: 12:30 - Subjective Subjective: Pt seen and evaluted, is sedated , on Mv, non weanable, pt abdomen is distended though not tender Objective - Vital Signs/Intake and Output Vital Signs (last 24 hours): Temp Pulse Resp BP Pulse Ox 97.9 F 67 16 191/98 H 99 09/29/16 20:00 09/29/16 21:00 09/29/16 21:00 09/29/16 21:00 09/29/16 21:00 Intake and Output: 09/29/16 09/30/16 18:59 06:59 Intake Total 640 90 Output Total 485 160 Balance 155 -70 - Medications Medications: Current Medications Amlodipine Besylate (Norvasc) 10 mg PO DAILY [facility] Last Admin: 09/29/16 10:19 Dose: 10 mg Aspirin (Aspirin Chewable) 81 mg PO DAILY [facility] Last Admin: 09/29/16 10:19 Dose: 81 mg Clopidogrel Bisulfate (Plavix) 75 mg PO DAILY [facility] Last Admin: 09/29/16 10:19 Dose: 75 mg Diltiazem HCl (Cardizem) 30 mg PO Q6H [facility] Last Admin: 09/29/16 16:30 Dose: 30 mg Enoxaparin Sodium (Lovenox) 40 mg SC DAILY [facility] Last Admin: 09/29/16 10:18 Dose: 40 mg Famotidine (Pepcid) 20 mg PO DAILY [facility] Last Admin: 09/29/16 10:19 Dose: 20 mg Hydralazine HCl (Apresoline) 10 mg IVP Q6H PRN PRN Reason: Other Last Admin: 09/29/16 20:30 Dose: 10 mg Ceftriaxone Sodium 2 gm/ (Sodium Chloride) 100 mls @ 100 mls/hr IVPB Q24H [facility] Last Admin: 09/28/16 23:28 Dose: 100 mls/hr Azithromycin 500 mg/ Sodium (Chloride) 250 mls @ 250 mls/hr IVPB Q24H [facility] Last Admin: 09/28/16 21:19 Dose: 250 mls/hr Dexmedetomidine HCl 400 mcg/ (Sodium Chloride) 100 mls @ 3.65 mls/hr IVPB TITR PRN; Protocol; 0.2 MCG/KG/HR PRN Reason: Agitation Last Admin: 09/29/16 18:31 Dose: 30 mls/hr Insulin Human Regular (Novolin R) 0 unit SC Q6 [facility] PRN Reason: Protocol Last Admin: 09/29/16 18:34 Dose: Not Given Lactulose (Enulose) 20 gm PO HS [facility] Lisinopril (Zestril) 20 mg NG DAILY [facility] Last Admin: 09/29/16 10:19 Dose: 20 mg Methylprednisolone (Solu-Medrol) 40 mg IV Q12 [facility] Last Admin: 09/29/16 10:18 Dose: 40 mg Midazolam HCl (Versed Inj) 2 mg IVP Q4H PRN PRN Reason: Agitation Last Admin: 09/29/16 20:30 Dose: 2 mg Nicotine (Nicoderm Cq) 1 patch TD DAILY [facility] Last Admin: 09/29/16 10:19 Dose: 1 patch Rosuvastatin Calcium (Crestor) 10 mg PO HS [facility] Last Admin: 09/28/16 21:18 Dose: 10 mg - Labs Labs: 09/29/16 06:38 09/29/16 06:38 PT 12.2 SECONDS (9.7-12.2) 09/29/16 06:38 INR 1.1 09/29/16 06:38 APTT 24 SECONDS (21-34) 09/29/16 06:38 - Constitutional Appears: No Acute Distress - Eye Exam Eye Exam: EOMI, Normal appearance, PERRL Pupil Exam: NORMAL ACCOMODATION, PERRL - ENT Exam ENT Exam: Mucous Membranes Moist, Normal Exam - Respiratory Exam Respiratory Exam: Decreased Breath Sounds - Cardiovascular Exam Cardiovascular Exam: REGULAR RHYTHM, +S1, +S2. absent: Murmur - GI/Abdominal Exam GI & Abdominal Exam: Distended, Soft, Normal Bowel Sounds. absent: Tenderness - Neurological Exam Neurological Exam: Altered Assessment and Plan (1) Acute respiratory failure with hypoxia and hypercarbia Status: Resolved (2) Altered mental status Status: Resolved (3) Acute [place] Status: Acute
[2016-09-30] MEDS: Midazolam 2 MG/2 ML VIAL IVP PRN ×3 (00:15→16:57)
[2016-09-30] MEDS: cefTRIAXone 2 GM in Sodium Chloride 0.9% 100 ML IVPB SCH ×2 (00:16→23:51)
[2016-09-30] MEDS: (Novolin R) Insulin Human Regular 100 units/ml vial SC SCH ×4 (01:13→17:09)
[2016-09-30] MEDS: Dexmedetomidine Hydrochloride 400 MCG in Sodium Chloride 0.9% 96 ML IVPB PRN ×5 (01:30→21:36)
[2016-09-30 05:34] LABS: ABG ALLEN TEST POS; ABG MECHANICAL RATE 16; ATERIAL BLOOD GAS PEEP 5; CARBOXYHEMOGLOBIN 1.6 % (0.5-1.5); DRAW SITE RRAD; HHB 1.1 % (0.0-5.0); METHEMOGLOBIN 1.3 % (0.0-3.0)
[2016-09-30 06:20] LABS: BASO # 0.1 K/uL (0.0-0.2); BASO % 0.5 % (0.0-2.0); HEMATOCRIT 43.9 % (34.0-47.0); LYMPH # 0.5 K/uL (1.0-4.3); LYMPH % 4.3 % (20.0-40.0); MEAN CELL VOLUME 90.3 fL (81.0-99.0); MEAN CORPUSCULAR HEMOGLOBIN 29.7 pg (27.0-31.0); MEAN CORPUSCULAR HGB CONC 32.9 g/dL (33.0-37.0); MEAN PLATELET VOLUME 9.3 fL (7.2-11.7); MONO # 0.3 K/uL (0.0-0.8); MONO % 2.6 % (0.0-10.0); PLATELET COUNT 190 K/uL (130-400); RED CELL DISTRIBUTION WIDTH 14.8 % (11.5-14.5); WHITE BLOOD COUNT 10.8 K/uL (4.8-10.8)
[2016-09-30 06:26] LABS: CHLORIDE 105 mmol/L (98-107); POTASSIUM 3.9 mmol/L (3.6-5.2); SODIUM 144 mmol/L (132-148)
[2016-09-30 06:28] LABS: GFR AFRICAN-AMERICAN > 60
[2016-09-30 06:29] LABS: ALB/GLOB RATIO 0.9 (1.0-2.1); ALKALINE PHOSPHATASE 43 U/L (38-126); ALT/SGPT 46 U/L (9-52); AST/SGOT 23 U/L (14-36); BILIRUBIN,TOTAL 0.3 mg/dL (0.2-1.3); BLOOD UREA NITROGEN 45 mg/dL (7-17); CARBON DIOXIDE 27 mmol/L (22-30); GLUCOSE,RANDOM 156 mg/dL (65-105); PHOSPHOROUS 3.7 mg/dL (2.5-4.5); TOTAL PROTEIN 5.4 g/dL (6.3-8.3)
[2016-09-30 06:30] LABS: MAGNESIUM 1.8 mg/dL (1.6-2.3)
--- NOTE | 2016-09-30 08:40 | RAD ---
HISTORY: Intubated COMPARISON: 09/29/2016 FINDINGS: The endotracheal tube terminates 4.5 cm proximal to the vicente. The nasogastric tube terminates in the stomach. LUNGS: The lungs are clear. PLEURA: No significant pleural effusion identified, no pneumothorax apparent. CARDIOVASCULAR: The heart is normal in size. There is unfolding of the aorta. Atherosclerotic aortic arch calcifications are present. OSSEOUS STRUCTURES: Within normal limits for the patient's age. VISUALIZED UPPER ABDOMEN: Normal. OTHER FINDINGS: None. IMPRESSION: No active pulmonary disease. Stable position of tubes.
[2016-09-30 08:44] LABS: NEUTROPHIL 91 % (50-75); REACTIVE LYMPHOCYTES 2 % (0-0); TOTAL CELLS COUNTED 100
[2016-09-30 08:45] LABS: LARGE PLATELETS PRESENT
--- NOTE | 2016-09-30 09:06 | CT ---
PROCEDURE: CT Abdomen and Pelvis with contrast HISTORY: Ileus COMPARISON: None. TECHNIQUE: Multidetector CT scan of the abdomen and pelvis was performed without intravenous contrast. Oral contrast was administered. Coronal and sagittal reformatted images were obtained. Radiation dose: Total exam DLP = 991.38 mGy-cm. FINDINGS: LOWER THORAX: There are moderate bilateral pleural effusions. LIVER: The liver is normal in size. There is no intra or extrahepatic biliary ductal dilatation. GALLBLADDER AND BILE DUCTS: There are gallstones. PANCREAS: The pancreas is normal in size without ductal dilatation or calcifications. SPLEEN: The spleen is normal in size. ADRENALS: Mild thickening without discrete nodule. KIDNEYS AND URETERS: The right kidney is not identified in the right renal fossa. There are multiple large simple cysts in the left kidney. VASCULATURE: There atherosclerotic vascular calcifications. BOWEL: The small bowel loops are normal in caliber. There is distension of the colon with air-fluid levels. There is mild sigmoid diverticulosis without CT evidence for acute diverticulitis. APPENDIX: Normal appendix. PERITONEUM: Small amount of free fluid. No free air. LYMPH NODES: No enlarged lymph nodes. BLADDER: There is an indwelling catheter with subsequent decompression of the urinary bladder. REPRODUCTIVE: There is an enlarged fibroid uterus with calcified fibroids. BONES: There is diffuse bone demineralization and multilevel degenerative changes in the spine. There is an old compression deformity in the T12 vertebral body. Focal area of sclerosis in the anterior T12 vertebral body could represent bone island. OTHER FINDINGS: There is diffuse anasarca. IMPRESSION: 1. Cholelithiasis without CT evidence for acute cholecystitis. 2. Colonic distention with air-fluid levels which may represent ileus or pseudo obstruction, no definite evidence of mass or colitis 3. Mild sigmoid diverticulosis without CT evidence for acute diverticulitis. 4. Several large simple cysts in the left kidney. Nonvisualization of the right kidney. 5. Mild ascites and moderate bilateral pleural effusions. A preliminary report was provided by [employer].
[2016-09-30] MEDS: MethylPREDNISolone 40 mg Vial IV SCH ×2 (09:50→21:37)
[2016-09-30] MEDS: Enoxaparin 40 mg Syringe SC SCH (09:50)
--- NOTE | 2016-09-30 10:46 | CP.PCM.PN ---
Subjective - Date & Time of Evaluation Date of Evaluation: 09/30/16 Time of Evaluation: 08:00 - Subjective Subjective: Patient seen and examined in the intensive care unit. Case discussed with house staff in the morning rounds Tolerating CPAP since morning More awake responsive Afebrile CAT scan of the abdomen consistent with ileus Objective - Vital Signs/Intake and Output Vital Signs (last 24 hours): Temp Pulse Resp BP Pulse Ox 97.9 F 76 19 154/75 H 98 09/30/16 08:00 09/30/16 10:00 09/30/16 10:00 09/30/16 10:00 09/30/16 10:00 Intake and Output: 09/30/16 09/30/16 06:59 18:59 Intake Total 660 236.4 Output Total 380 75 Balance 280 161.4 - Medications Medications: Current Medications Albuterol/Ipratropium (Duoneb 3 Mg/0.5 Mg (3 Ml) Ud) 3 ml INH RQ4 [facility] 234 BEDS AT [facility] Amlodipine Besylate (Norvasc) 10 mg PO DAILY [facility] Last Admin: 09/30/16 09:50 Dose: 10 mg Aspirin (Aspirin Chewable) 81 mg PO DAILY [facility] Last Admin: 09/30/16 09:50 Dose: 81 mg Clopidogrel Bisulfate (Plavix) 75 mg PO DAILY [facility] Last Admin: 09/30/16 09:50 Dose: 75 mg Diltiazem HCl (Cardizem) 30 mg PO Q6H [facility] 234 [facility] Last Admin: 09/30/16 09:53 Dose: 30 mg Enoxaparin Sodium (Lovenox) 40 mg SC DAILY [facility] 234 [facility] Last Admin: 09/30/16 09:50 Dose: 40 mg Famotidine (Pepcid) 20 mg PO DAILY [facility] Last Admin: 09/30/16 09:53 Dose: 20 mg Hydralazine HCl (Apresoline) 10 mg IVP Q6H PRN PRN Reason: Other Last Admin: 09/29/16 20:30 Dose: 10 mg Ceftriaxone Sodium 2 gm/ (Sodium Chloride) 100 mls @ 100 mls/hr IVPB Q24H [facility] Last Admin: 09/30/16 00:16 Dose: 100 mls/hr Azithromycin 500 mg/ Sodium (Chloride) 250 mls @ 250 mls/hr IVPB Q24H [facility] 234 [facility]S [facility] Last Admin: 09/29/16 22:07 Dose: 250 mls/hr Dexmedetomidine HCl 400 mcg/ (Sodium Chloride) 100 mls @ 3.65 mls/hr IVPB TITR PRN; Protocol; 0.2 MCG/KG/HR PRN Reason: Agitation Last Admin: 09/30/16 08:33 Dose: 29.6 mls/hr Insulin Human Regular (Novolin R) 0 unit SC Q6 [facility] PRN Reason: Protocol Last Admin: 09/30/16 05:30 Dose: Not Given Lactulose (Enulose) 20 gm PO HS [facility] 234 [facility] Last Admin: 09/29/16 22:12 Dose: 20 gm Lisinopril (Zestril) 20 mg NG DAILY [facility] Last Admin: 09/30/16 09:54 Dose: 20 mg Methylprednisolone (Solu-Medrol) 40 mg IV Q12 [facility] Last Admin: 09/30/16 09:50 Dose: 40 mg Midazolam HCl (Versed Inj) 2 mg IVP Q4H PRN PRN Reason: Agitation Last Admin: 09/30/16 08:00 Dose: 2 mg Nicotine (Nicoderm Cq) 1 patch TD DAILY [facility] Last Admin: 09/30/16 09:53 Dose: 1 patch Rosuvastatin Calcium (Crestor) 10 mg PO HS [facility] Last Admin: 09/29/16 22:12 Dose: 10 mg - Labs Labs: 09/30/16 06:07 09/30/16 06:07 PT 12.2 SECONDS (9.7-12.2) 09/29/16 06:38 INR 1.1 09/29/16 06:38 APTT 24 SECONDS (21-34) 09/29/16 06:38 - Head Exam Head Exam: ATRAUMATIC, NORMOCEPHALIC - Eye Exam Eye Exam: Normal appearance - ENT Exam ENT Exam: Mucous Membranes Moist - Neck Exam Neck Exam: Normal Inspection - Respiratory Exam Respiratory Exam: Decreased Breath Sounds - Cardiovascular Exam Cardiovascular Exam: REGULAR RHYTHM - GI/Abdominal Exam GI & Abdominal Exam: Soft, Normal Bowel Sounds - Extremities Exam Extremities Exam: Normal Inspection - Neurological Exam Neurological Exam: Awake Assessment and Plan (1) Acute respiratory failure with hypoxia and hypercarbia Assessment & Plan: wean as tolerated Continue steroids and nebulizer treatment Feeding on hold CT of the abdomen noted Status: Acute (2) Acute [place] Status: Acute
[2016-09-30] MEDS: Albuterol-Ipratrop 3 mg / 0.5 (3 ml) UD INH SCH ×3 (11:45→19:47)
--- NOTE | 2016-09-30 12:21 | CP.CCUPN ---
CCU Subjective - Physician Review Subjective (Free Text): 09/24/16 13:39 Patient was seen and examined at bedside. No acute distress on ventilator. No acute events overnight. Nursing staff reports no issues. Patient is resting comfortably on the bed, maintained on a propofol drip 10mcg/kg/min. Patient is lethargic but awakens to voice, follows command. Denies any pain or complaints aside from the ventilator. Hypercarbia has improved on todays ABG. 09/25/16 10:20 Patient was seen and examined at bedside. No acute distress on ventilator. No acute events overnight. Nursing staff reports no issues. Patient is resting comfortably on the bed. Patient is on cPAP. Patient is planned for extubation today. Hypercarbia has stabilized. Patient is likely at her baseline. Today, nicotine patch was ordered and a fluid challenge (250cc bolus) due to acute rise in BUN/Cr. 09/26/16 13:51 Patient was seen and examined at bedside. No acute distress on ventilator. No acute events overnight. Patient was trialed on CPAP yesterday [id number]. Patient had poor inspiratory volumes and was placed back on vent. The patient was again tried on CPAP this morning but could not maintain adequate tidal volume. The patient was placed back on the ventilator at an increased rate to decrease her PCO2. Today, the patients respiratory rate was increased to 16. A CT of the Chest was ordered. Feeds were restarted, and lovenox 40mg sc daily was started for dvt prophylaxis. 09/27/16 08:40 Patient was seen and examined at bedside. No acute distress on ventilator. No acute events overnight. Nursing staff reports no issues. Patient remains intubated (TV 450mL, FiO2 50%, Rate 16, PEEP 5) and sedated 0.2mcg/kg/hr on prededex. The patient has bee trialed x2 with CPAP and not tolerated. The patient has continued to have a respiratory acidosis. The patient was tachycardic 5mg of Lopressor was given IV x1 and Cardizem 30mg PO q6 was started. Today, the patient was started on lisinopril for HTN. Hydralazine IV was added PRN for HTN coverage for SBP >170mmHg. The patient was again tried on CPAP 15/ 5 but could not tolerate the transition and thus was put back on PRVC. 09/30/16 12:18 Patient was seen and examined at bedside. No acute distress on ventilator. No acute events overnight. Nursing staff reports no issues. Patient remains intubated (TV 450mL, FiO2 50%, Rate 16, PEEP 5). The patient will be trialed on CPAP 15/5 for possible extubation today. Today, the patient was taken off PRVC and placed on 15/5 CPAP with pressure support for extubation trial. The patient's magnesium was replaced and duonebs reordered q4 juvenal. Critical Care Time Spent (in minutes): 60 CCU Objective - Vital Signs / Intake & Output Vital Signs (Last 4 hours): Vital Signs Pulse Resp BP Pulse Ox 09/30/16 11:00 76 18 133/74 99 09/30/16 10:00 76 19 154/75 H 98 09/30/16 09:00 73 18 165/80 H 97 Intake and Output (Last 8hrs): Intake & Output 09/29/16 09/30/16 09/30/16 22:59 06:59 14:59 Intake Total 440 340 254.4 Output Total 260 250 75 Balance 180 90 179.4 Weight 76.7 kg Intake: Intake, IV Amount 440 340 254.4 right upper arm 200 100 100 right upper arm distal 240 240 124.8 port Left Forearm 29.6 Tube Feeding 0 0 Output: Urine 260 250 75 Urethral (Antony) 260 250 75 Other: # Bowel Movements 0 - Physical Exam Head: Positive for: Atraumatic, Normocephalic, Other (ET Tube in place) Pupils: Positive for: PERRL Mouth: Positive for: Dry Respiratory/Chest: Positive for: Clear to Auscultation, Good Air Exchange, Rales. Negative for: Respiratory Distress, Accessory Muscle Use Cardiovascular: Positive for: Normal S1, S2, Irregular Rhythm. Negative for: Regular Rate and Rhythm, Murmurs Abdomen: Positive for: Normal Bowel Sounds. Negative for: Tenderness, Distention Upper Extremity: Positive for: Normal Inspection. Negative for: Cyanosis, Edema Lower Extremity: Positive for: Normal Inspection. Negative for: Edema, CALF TENDERNESS Skin: Positive for: Warm, Dry Psychiatric: Positive for: Alert - Medications Active Medications: Active Medications Generic Name Dose Route Start Last Admin Trade Name Freq PRN Reason Stop Dose Admin Albuterol/Ipratropium 3 ml 09/30/16 12:00 09/30/16 11:45 Duoneb 3 Mg/0.5 Mg (3 Ml) Ud INH 3 ml RQ4 JUVENAL Administration Amlodipine Besylate 10 mg 09/29/16 10:00 09/30/16 09:50 Norvasc PO 10 mg DAILY JUVENAL Administration Aspirin 81 mg 09/24/16 18:30 09/30/16 09:50 Aspirin Chewable PO 81 mg DAILY JUVENAL Administration Clopidogrel Bisulfate 75 mg 09/26/16 10:00 09/30/16 09:50 Plavix PO 75 mg DAILY JUVENAL Administration Diltiazem HCl 30 mg 09/26/16 22:15 09/30/16 09:53 Cardizem PO 30 mg Q6H JUVENAL Administration Enoxaparin Sodium 40 mg 09/26/16 13:00 09/30/16 09:50 Lovenox SC 40 mg DAILY JUVENAL Administration Famotidine 20 mg 09/29/16 10:00 09/30/16 09:53 Pepcid PO 20 mg DAILY JUVENAL Administration Hydralazine HCl 10 mg 09/29/16 19:58 09/29/16 20:30 Apresoline IVP 10 mg Q6H PRN Administration Other Ceftriaxone Sodium 2 gm/ 100 mls @ 100 mls/hr 09/23/16 23:30 09/30/16 00:16 Sodium Chloride IVPB 100 mls/hr Q24H JUVENAL Administration Azithromycin 500 mg/ Sodium 250 mls @ 250 mls/hr 09/23/16 22:15 09/29/16 22:07 Chloride IVPB 250 mls/hr Q24H JUVENAL Administration Dexmedetomidine HCl 400 mcg/ 100 mls @ 3.65 mls/hr 09/27/16 19:44 09/30/16 08: 33 Sodium Chloride IVPB 29.6 mls/hr TITR PRN Administration Agitation Protocol 0.2 MCG/KG/HR Insulin Human Regular 0 unit 09/27/16 06:00 09/30/16 05:30 Novolin R SC Not Given Q6 JUVENAL Protocol Lactulose 20 gm 09/29/16 22:00 09/29/16 22:12 Enulose PO 20 gm HS JUVENAL Administration Lisinopril 20 mg 09/29/16 09:54 09/30/16 09:54 Zestril NG 20 mg DAILY JUVENAL Administration Methylprednisolone 40 mg 09/29/16 10:00 09/30/16 09:50 Solu-Medrol IV 40 mg Q12 JUVENAL Administration Midazolam HCl 2 mg 09/26/16 09:26 09/30/16 08:00 Versed Inj IVP 2 mg Q4H PRN Administration Agitation Nicotine 1 patch 09/25/16 10:00 09/30/16 09:53 Nicoderm Cq TD 1 patch DAILY JUVENAL Administration Rosuvastatin Calcium 10 mg 09/23/16 22:00 09/29/16 22:12 Crestor PO 10 mg HS JUVENAL Administration - Patient Studies Lab Studies: Lab Studies 09/30/16 09/30/16 09/30/16 Range/Units 06:07 05:27 05:23 WBC 10.8 (4.8-10.8) K/uL RBC 4.86 (3.80-5.20) Mil/uL Hgb 14.4 (11.0-16.0) g/dL Hct 43.9 (34.0-47.0) % MCV 90.3 (81.0-99.0) fL MCH 29.7 (27.0-31.0) pg MCHC 32.9 L (33.0-37.0) g/dL RDW 14.8 H (11.5-14.5) % Plt Count 190 (130-400) K/uL MPV 9.3 (7.2-11.7) fL Neut % (Auto) 92.6 H (50.0-75.0) % Lymph % (Auto) 4.3 L (20.0-40.0) % Chase % (Auto) 2.6 (0.0-10.0) % Eos % (Auto) 0.0 (0.0-4.0) % Baso % (Auto) 0.5 (0.0-2.0) % Neut # 10.0 H (1.8-7.0) K/uL Lymph # 0.5 L (1.0-4.3) K/uL Chase # 0.3 (0.0-0.8) K/uL Eos # 0.0 (0.0-0.7) K/uL Baso # 0.1 (0.0-0.2) K/uL Neutrophils % (Manual) 91 H (50-75) % Lymphocytes % (Manual) 4 L (20-40) % Reactive Lymphs % 2 H (0-0) % Monocytes % (Manual) 3 (0-10) % Platelet Estimate Normal (NORMAL) Large Platelets Present Poikilocytosis (manual Slight Puncture Site Rrad pCO2 42 (35-45) mm/Hg pO2 97 (80-100) mm/Hg HCO3 24.0 (21-28) mmol/L ABG pH 7.37 (7.35-7.45) ABG Total CO2 25.6 (22-28) mmol/L ABG O2 Saturation 98.9 H (95-98) % ABG Base Excess -1.1 (-2.0-3.0) mmol/L ABG Hemoglobin 14.1 (11.7-17.4) g/dL ABG Carboxyhemoglobin 1.6 H (0.5-1.5) % POC ABG HHb (Measured) 1.1 (0.0-5.0) % ABG Methemoglobin 1.3 (0.0-3.0) % Fish Test Pos A-a O2 Difference 207.0 mm/Hg Respiratory Index 2.1 Hgb O2 Saturation 96.0 (95.0-98.0) % Mechanical Rate 16 FiO2 50.0 % Tidal Volume 450 PEEP 5 Sodium 144 (132-148) mmol/L Potassium 3.9 (3.6-5.2) mmol/L Chloride 105 (98-107) mmol/L Carbon Dioxide 27 (22-30) mmol/L Anion Gap 17 (10-20) BUN 45 H (7-17) mg/dL Creatinine 1.0 (0.7-1.2) MG/DL Est GFR ( Amer) > 60 Est GFR (Non-Af Amer) 53 POC Glucose (mg/dL) 167 H (65-110) mg/dL Random Glucose 156 H (65-105) mg/dL Calcium 8.0 L (8.6-10.4) mg/dl Phosphorus 3.7 (2.5-4.5) mg/dL Magnesium 1.8 (1.6-2.3) mg/dL Total Bilirubin 0.3 (0.2-1.3) mg/dL AST 23 (14-36) U/L ALT 46 (9-52) U/L Alkaline Phosphatase 43 (38-126) U/L Total Protein 5.4 L (6.3-8.3) g/dL Albumin 2.6 L (3.5-5.0) g/dL Globulin 2.8 (2.2-3.9) gm/dL Albumin/Globulin Ratio 0.9 L (1.0-2.1) 09/30/16 09/29/16 Range/Units 01:12 18:33 WBC (4.8-10.8) K/uL RBC (3.80-5.20) Mil/uL Hgb (11.0-16.0) g/dL Hct (34.0-47.0) % MCV (81.0-99.0) fL MCH (27.0-31.0) pg MCHC (33.0-37.0) g/dL RDW (11.5-14.5) % Plt Count (130-400) K/uL MPV (7.2-11.7) fL Neut % (Auto) (50.0-75.0) % Lymph % (Auto) (20.0-40.0) % Chase % (Auto) (0.0-10.0) % Eos % (Auto) (0.0-4.0) % Baso % (Auto) (0.0-2.0) % Neut # (1.8-7.0) K/uL Lymph # (1.0-4.3) K/uL Chase # (0.0-0.8) K/uL Eos # (0.0-0.7) K/uL Baso # (0.0-0.2) K/uL Neutrophils % (Manual) (50-75) % Lymphocytes % (Manual) (20-40) % Reactive Lymphs % (0-0) % Monocytes % (Manual) (0-10) % Platelet Estimate (NORMAL) Large Platelets Poikilocytosis (manual Puncture Site pCO2 (35-45) mm/Hg pO2 (80-100) mm/Hg HCO3 (21-28) mmol/L ABG pH (7.35-7.45) ABG Total CO2 (22-28) mmol/L ABG O2 Saturation (95-98) % ABG Base Excess (-2.0-3.0) mmol/L ABG Hemoglobin (11.7-17.4) g/dL ABG Carboxyhemoglobin (0.5-1.5) % POC ABG HHb (Measured) (0.0-5.0) % ABG Methemoglobin (0.0-3.0) % Fish Test A-a O2 Difference mm/Hg Respiratory Index Hgb O2 Saturation (95.0-98.0) % Mechanical Rate FiO2 % Tidal Volume PEEP Sodium (132-148) mmol/L Potassium (3.6-5.2) mmol/L Chloride (98-107) mmol/L Carbon Dioxide (22-30) mmol/L Anion Gap (10-20) BUN (7-17) mg/dL Creatinine (0.7-1.2) MG/DL Est GFR ( Amer) Est GFR (Non-Af Amer) POC Glucose (mg/dL) 171 H 118 H (65-110) mg/dL Random Glucose (65-105) mg/dL Calcium (8.6-10.4) mg/dl Phosphorus (2.5-4.5) mg/dL Magnesium (1.6-2.3) mg/dL Total Bilirubin (0.2-1.3) mg/dL AST (14-36) U/L ALT (9-52) U/L Alkaline Phosphatase (38-126) U/L Total Protein (6.3-8.3) g/dL Albumin (3.5-5.0) g/dL Globulin (2.2-3.9) gm/dL Albumin/Globulin Ratio (1.0-2.1) Laboratory Results - last 24 hr 09/29/16 09/30/16 09/30/16 18:33 01:12 05:23 WBC RBC Hgb Hct MCV MCH MCHC RDW Plt Count MPV Neut % (Auto) Lymph % (Auto) Chase % (Auto) Eos % (Auto) Baso % (Auto) Neut # Lymph # Chase # Eos # Baso # Neutrophils % (Manual) Lymphocytes % (Manual) Reactive Lymphs % Monocytes % (Manual) Platelet Estimate Large Platelets Poikilocytosis (manual Puncture Site Rrad pCO2 42 pO2 97 HCO3 24.0 ABG pH 7.37 ABG Total CO2 25.6 ABG O2 Saturation 98.9 H ABG Base Excess -1.1 ABG Hemoglobin 14.1 ABG Carboxyhemoglobin 1.6 H POC ABG HHb (Measured) 1.1 ABG Methemoglobin 1.3 Fish Test Pos A-a O2 Difference 207.0 Respiratory Index 2.1 Hgb O2 Saturation 96.0 Mechanical Rate 16 FiO2 50.0 Tidal Volume 450 PEEP 5 Sodium Potassium Chloride Carbon Dioxide Anion Gap BUN Creatinine Est GFR ( Amer) Est GFR (Non-Af Amer) POC Glucose (mg/dL) 118 H 171 H Random Glucose Calcium Phosphorus Magnesium Total Bilirubin AST ALT Alkaline Phosphatase Total Protein Albumin Globulin Albumin/Globulin Ratio 09/30/16 09/30/16 05:27 06:07 WBC 10.8 RBC 4.86 Hgb 14.4 Hct 43.9 MCV 90.3 MCH 29.7 MCHC 32.9 L RDW 14.8 H Plt Count 190 MPV 9.3 Neut % (Auto) 92.6 H Lymph % (Auto) 4.3 L Chase % (Auto) 2.6 Eos % (Auto) 0.0 Baso % (Auto) 0.5 Neut # 10.0 H Lymph # 0.5 L Chase # 0.3 Eos # 0.0 Baso # 0.1 Neutrophils % (Manual) 91 H Lymphocytes % (Manual) 4 L Reactive Lymphs % 2 H Monocytes % (Manual) 3 Platelet Estimate Normal Large Platelets Present Poikilocytosis (manual Slight Puncture Site pCO2 pO2 HCO3 ABG pH ABG Total CO2 ABG O2 Saturation ABG Base Excess ABG Hemoglobin ABG Carboxyhemoglobin POC ABG HHb (Measured) ABG Methemoglobin Fish Test A-a O2 Difference Respiratory Index Hgb O2 Saturation Mechanical Rate FiO2 Tidal Volume PEEP Sodium 144 Potassium 3.9 Chloride 105 Carbon Dioxide 27 Anion Gap 17 BUN 45 H Creatinine 1.0 Est GFR ( Amer) > 60 Est GFR (Non-Af Amer) 53 POC Glucose (mg/dL) 167 H Random Glucose 156 H Calcium 8.0 L Phosphorus 3.7 Magnesium 1.8 Total Bilirubin 0.3 AST 23 ALT 46 Alkaline Phosphatase 43 Total Protein 5.4 L Albumin 2.6 L Globulin 2.8 Albumin/Globulin Ratio 0.9 L EKG/Cardiology Studies: Cardiology / EKG Studies 09/30/16 09:44 EKG [ELECTROCARDIOGRAM] Routine Comment: Mode Of Transportation: Reason For Exam: abnormal rhythm strip Fingerstick Blood Sugar Results: 167 Review of Systems - Review of Systems Systems not reviewed;Unavailable: Intubated Critical Care Progress Note - Ventilator Checklist Head of Bed 30 Degrees: Yes - Vent Settings MODE:: CPAP PEEP:: 5 PRESSURE SUPPORT:: 15 - Prophylaxis GI Prophylaxis GI: Pepsid - Prophylaxis DVT Prophylaxis DVT: Lovenox Assessment/Plan - Assessment and Plan (Free Text) Assessment: This is an 86 y/o female with a suspected PMH of smoking, COPD, and HTN presenting with respiratory failure and hypercarbic encephalopathy. Today, plan for extubation and possible cath with Dr. Mendes. The patient will undergo a fluid challenge for acute rise in BUN/Cr. Patient failed trial of CPAP. Continue on vent with increased rate to resolve respiratory acidosis. The patient was again tried on CPAP 15/5 but could not tolerate the transition and thus was put back on PRVC. Patient will we trialed on CPAP with pressure support 15/5 again today in preparation for extubation. Plan: Neuro: Patient awakens to voice and responds to command. Sedation discontinued Denies pain or discomfort 09/23/16 CT Head- Generalized atrophy. Nonspecific white matter changes. Nicotine patch 21mg ordered for tobacco abuse disorder Sedation: Precedex 1mcg/kg/hr Versed 2mg IV q4 PRN Agitation Cardiovascular: Irregularly Irregular rate Normal rhythm HTN Troponin- 0.2400 > 0.2480 > 0.2490 09/24/16 ECHO- LV normal systolic function, normal chamber size, mild/trace triscupid regurg 09/23/16 EKG- sinus tachycardia with PACs, low voltage QRS, possible anteroseptal infarct age undetermined- official read pending Suspect elevated troponin due to demand ischemia Patient refusing cath 300mg Plavix loading dose given 09/25/16 75mg PO daily plavix Cardizem 30mg PO Q6 Lisinopril 20mg po daily Aspirin 81mg po daily Rouvastatin 10mg po hs Hydralazine 10mg IVP q6 PRN SBP >170 Norvasc 10mg PO daily Pulmonary: Solumedrol 40mg IV q12 Duoneb q4 Imagin09/30/16 CXR- No active pulmonary disease. Stable position of tubes. 09/29/16 CXR- Interval improvement in the right lung since the previous exam. 09/28/16 CXR- Interval worsening of heterogeneous opacities at the right lower lung since the previous exam. Appropriate position of the ETT and NG tube. 09/27/16 CXR- ET Tube proximal to the vicente. OG tube distal to diaphragm. Hazy bibasilar atelectasis. 09/26/16 CXR- Lines and tubes in stable position. Biapical pleural thickening with upper lobe granulomatous changes. Mild venous congestion. Chronic interstitial lung markings. Bibasilar airspace opacities 09/26/16 CT Chest- Small pleural effusions in atelectasis likely compressive bilaterally. Otherwise no significant pulmonary abnormalities. Underlying COPD and evidence of lower airway disease. Satisfactory position of support apparatus 09/25/16 CXR- ET tube in good position- official read pending 09/24/16 CXR- mild venous congestion 09/23/16 CXR- Probable Mach artifact with linear lucency in the left mid susie thorax. Mild venous congestion. Elevated right hemidiaphragm. Right hilar prominence. Endotracheal tube extending into the mid thoracic trachea. NG tube extending into the stomach. 09/23/16 CXR- Biapical pleural thickening with upper lobe granulomatous changes. Some airspace opacification at the right lung apex and right hilar region. Scattered nodularity in both lungs most predominant at the lung bases. Increased markings at the lung bases which may represent some patchy atelectasis. Ventilator settings: PRVC 16/1L/50/5 AB09/30/16 pH 7.37, CO2 42, O2 97, HCO3 24.0 09/29/16 pH 7.36, CO2 44, O2 92, HCO3 24.3 09/28/16 pH 7.37, CO2 43, O2 85, HCO3 24.4 09/27/16 pH 7.27, CO2 45, O2 87, HCO3 20.1 09/26/16 (11:45) pH 7.24, CO2 57, O2 65, HCO3 21.8 09/26/16 (05:09) pH 7.28, CO2 50, O2 85, HCO3 22 09/25/16 pH 7.28, CO2 53, O2 113, HCO3 23 09/24/16 pH 7.32, CO2 54, O2 352, HCO3 25.4 09/23/16 O2 345 09/23/16 pH 7.22, CO2 80, O2 377, HCO3 26.9 GI: Protonix 40mg IV daily GI Consult- Dr. Ayala Lactulose 20mg po HS 09/29/16 CT ABd/Pelv- 1. Cholelithiasis without CT evidence for acute cholecystitis. 2. Colonic distention with air-fluid levels which may represent ileus or pseudo obstruction, no definite evidence of mass or colitis. 3. Mild sigmoid diverticulosis without CT evidence for acute diverticulitis. 4. Several large simple cysts in the left kidney. Nonvisualization of the right kidney. 5. Mild ascites and moderate bilateral pleural effusions. 09/29/16 Abd XR- Moderately dilated bowel loops at the mid to upper abdomen right more than left. If clinically warranted further assessment by CT is suggested. Hematology: No leukocytosis Hgb/Hct stable Bandemia improving 14 > 6 > 8 > 1 > 2 Endocrine: maintain euglycemia HbA1c- 5.9 IVF- NS @ 100ml/hr Renal: Actue rise in BUN/Cr: improving - continue IVF Hypokalemia- resolved Hypomagnesemia- resolved ID: No leukocytosis U/A negative Blood Cx negative Day 8 Rocephin 2g IV daily- start 09/23/16 Day 7 Azithromycin 500mg IV daily- start 09/24/16 : None MSK: None GI Prophylaxis- pepcid 20mg po daily DVT Prophylaxis- lovenox 40mg sc daily Tommie Levy PGY1 - Date & Time Date: 09/30/16 Time: 12:24
--- NOTE | 2016-09-30 15:01 | CP.PCM.CON ---
<Rodger Hunter - Last Filed: 09/30/16 14:53> History of Present Illness - History of Present Illness History of Present Illness: Surgery: Dr. Jimenez Reason for consult: Abdominal Distention HPI: Patient is an 86 y/o female w/ phx of COPD and HTN currently intubated in ICU 08/29 to hypercapnic respiratory failure. Patient was noted to have increasing abdominal distention during the weekend and underwent CT scan of the abdomen on 09/29. Results showed colonic ileus vs pseudo-obstruction. Patient was noted to have large BM today, nonbloody. Patient is able to communicate w/ head nods and denies any abdominal pain. Further history unobtainable 08/29 patient being intubated. PMHx: HTN, COPD, hypothyroidism PSH: unobtainable Social: tobacco use +, has a niece who is next of kin. Review of Systems - Review of Systems Systems not reviewed;Unavailable: Intubated Past Patient History - Past Medical History & Family History Past Medical History?: No - Past Social History Smoking Status: Current Some Days Smoker - CARDIAC Hx Hypertension: Yes - PULMONARY Hx Chronic Obstructive Pulmonary Disease (COPD): Yes - ENDOCRINE/METABOLIC Hx Hypothyroidism: Yes - MUSCULOSKELETAL/RHEUMATOLOGICAL Hx Falls: No (unknown) - PSYCHIATRIC Hx Substance Use: Yes - SURGICAL HISTORY Hx Surgeries: No (UNOBTAINABLE) - ANESTHESIA Hx Anesthesia: No Hx Anesthesia Reactions: No Hx Malignant Hyperthermia: No Has any member of the family had a problem w/ anesthesia?: No Meds Allergies/Adverse Reactions: Allergies Allergy/AdvReac Type Severity Reaction Status Date / Time No Known Allergies Allergy Verified 09/24/16 15:06 - Medications Medications: Current Medications Albuterol/Ipratropium (Duoneb 3 Mg/0.5 Mg (3 Ml) Ud) 3 ml INH RQ4 [facility] Last Admin: 09/30/16 11:45 Dose: 3 ml Amlodipine Besylate (Norvasc) 10 mg PO DAILY [facility] Last Admin: 09/30/16 09:50 Dose: 10 mg Aspirin (Aspirin Chewable) 81 mg PO DAILY [facility] Last Admin: 09/30/16 09:50 Dose: 81 mg Clopidogrel Bisulfate (Plavix) 75 mg PO DAILY [facility] Last Admin: 09/30/16 09:50 Dose: 75 mg Diltiazem HCl (Cardizem) 30 mg PO Q6H [facility] Last Admin: 09/30/16 09:53 Dose: 30 mg Enoxaparin Sodium (Lovenox) 40 mg SC DAILY [facility] Last Admin: 09/30/16 09:50 Dose: 40 mg Famotidine (Pepcid) 20 mg PO DAILY [facility] Last Admin: 09/30/16 09:53 Dose: 20 mg Hydralazine HCl (Apresoline) 10 mg IVP Q6H PRN PRN Reason: Other Last Admin: 09/29/16 20:30 Dose: 10 mg Ceftriaxone Sodium 2 gm/ (Sodium Chloride) 100 mls @ 100 mls/hr IVPB Q24H [facility] Last Admin: 09/30/16 00:16 Dose: 100 mls/hr Azithromycin 500 mg/ Sodium (Chloride) 250 mls @ 250 mls/hr IVPB Q24H [facility] Last Admin: 09/29/16 22:07 Dose: 250 mls/hr Dexmedetomidine HCl 400 mcg/ (Sodium Chloride) 100 mls @ 3.65 mls/hr IVPB TITR PRN; Protocol; 0.2 MCG/KG/HR PRN Reason: Agitation Last Admin: 09/30/16 08:33 Dose: 29.6 mls/hr Insulin Human Regular (Novolin R) 0 unit SC Q6 [facility] PRN Reason: Protocol Last Admin: 09/30/16 05:30 Dose: Not Given Lactulose (Enulose) 20 gm PO [facility] Last Admin: 09/29/16 22:12 Dose: 20 gm Lisinopril (Zestril) 20 mg NG DAILY [facility] Last Admin: 09/30/16 09:54 Dose: 20 mg Methylprednisolone (Solu-Medrol) 40 mg IV Q12 [facility] Last Admin: 09/30/16 09:50 Dose: 40 mg Midazolam HCl (Versed Inj) 2 mg IVP Q4H PRN PRN Reason: Agitation Last Admin: 09/30/16 08:00 Dose: 2 mg Nicotine (Nicoderm Cq) 1 patch TD DAILY [facility] Last Admin: 09/30/16 09:53 Dose: 1 patch Rosuvastatin Calcium (Crestor) 10 mg PO HS [facility] Last Admin: 09/29/16 22:12 Dose: 10 mg Physical Exam - Constitutional Appears: No Acute Distress Additional comments: intubated, awake and can respond to simple questions w/ head nods - Head Exam Head Exam: ATRAUMATIC, NORMOCEPHALIC - Eye Exam Eye Exam: EOMI - ENT Exam ENT Exam: Mucous Membranes Dry Additional comments: ET tube and OGT in place - Respiratory Exam Additional comments: on mechanical ventilation - Cardiovascular Exam Cardiovascular Exam: REGULAR RHYTHM. absent: Tachycardia - GI/Abdominal Exam GI & Abdominal Exam: Distended (moderately ), Soft. absent: Guarding, Rebound, Rigid, Tenderness - Extremities Exam Extremities exam: Positive for: normal inspection. Negative for: calf tenderness - Neurological Exam Neurological exam: Alert - Skin Skin Exam: Dry, Intact, Warm Results - Vital Signs Recent Vital Signs: Last Vital Signs Temp 99 F 09/30/16 12:00 Pulse 78 09/30/16 14:00 Resp 19 09/30/16 14:00 BP 110/56 L 09/30/16 14:00 Pulse Ox 98 09/30/16 14:00 - Labs Result Diagrams: 09/30/16 06:07 09/30/16 06:07 Labs: Laboratory Results - last 24 hr 09/29/16 09/30/16 09/30/16 18:33 01:12 05:23 WBC RBC Hgb Hct MCV MCH MCHC RDW Plt Count MPV Neut % (Auto) Lymph % (Auto) [place] % (Auto) Eos % (Auto) Baso % (Auto) Neut # Lymph # [place] # Eos # Baso # Neutrophils % (Manual) Lymphocytes % (Manual) Reactive Lymphs % Monocytes % (Manual) Platelet Estimate Large Platelets Poikilocytosis (manual Puncture Site Rrad pCO2 42 pO2 97 HCO3 24.0 ABG pH 7.37 ABG Total CO2 25.6 ABG O2 Saturation 98.9 H ABG Base Excess -1.1 ABG Hemoglobin 14.1 ABG Carboxyhemoglobin 1.6 H POC ABG HHb (Measured) 1.1 ABG Methemoglobin 1.3 Fish Test Pos A-a O2 Difference 207.0 Respiratory Index 2.1 Hgb O2 Saturation 96.0 Mechanical Rate 16 FiO2 50.0 Tidal Volume 450 PEEP 5 Sodium Potassium Chloride Carbon Dioxide Anion Gap BUN Creatinine Est GFR ( Amer) Est GFR (Non-Af Amer) POC Glucose (mg/dL) 118 H 171 H Random Glucose Calcium Phosphorus Magnesium Total Bilirubin AST ALT Alkaline Phosphatase Total Protein Albumin Globulin Albumin/Globulin Ratio 0309/30/16 09/30/16 05:27 06:07 11:52 WBC 10.8 RBC 4.86 Hgb 14.4 Hct 43.9 MCV 90.3 MCH 29.7 MCHC 32.9 L RDW 14.8 H Plt Count 190 MPV 9.3 Neut % (Auto) 92.6 H Lymph % (Auto) 4.3 L [place] % (Auto) 2.6 Eos % (Auto) 0.0 Baso % (Auto) 0.5 Neut # 10.0 H Lymph # 0.5 L [place] # 0.3 Eos # 0.0 Baso # 0.1 Neutrophils % (Manual) 91 H Lymphocytes % (Manual) 4 L Reactive Lymphs % 2 H Monocytes % (Manual) 3 Platelet Estimate Normal Large Platelets Present Poikilocytosis (manual Slight Puncture Site pCO2 pO2 HCO3 ABG pH ABG Total CO2 ABG O2 Saturation ABG Base Excess ABG Hemoglobin ABG Carboxyhemoglobin POC ABG HHb (Measured) ABG Methemoglobin Fish Test A-a O2 Difference Respiratory Index Hgb O2 Saturation Mechanical Rate FiO2 Tidal Volume PEEP Sodium 144 Potassium 3.9 Chloride 105 Carbon Dioxide 27 Anion Gap 17 BUN 45 H Creatinine 1.0 Est GFR ( Amer) > 60 Est GFR (Non-Af Amer) 53 POC Glucose (mg/dL) 167 H 177 H Random Glucose 156 H Calcium 8.0 L Phosphorus 3.7 Magnesium 1.8 Total Bilirubin 0.3 AST 23 ALT 46 Alkaline Phosphatase 43 Total Protein 5.4 L Albumin 2.6 L Globulin 2.8 Albumin/Globulin Ratio 0.9 L Assessment & Plan - Assessment and Plan (Free Text) Assessment: 86 y/o female w/ colonic ileus Plan: -+ BM today -will order abdominal flat plate in am for comparison -consider suppository if remains distended -medical management per primary and ICU team -GI recs -d/w Dr. Jimenez AKWhite PGY1 <Jai Jimenez - Last Filed: 10/01/16 22:10> Meds - Medications Medications: Current Medications Albuterol/Ipratropium (Duoneb 3 Mg/0.5 Mg (3 Ml) Ud) 3 ml INH RQ4 [facility] Last Admin: 10/01/16 15:34 Dose: 3 ml Amlodipine Besylate (Norvasc) 10 mg PO DAILY [facility] Last Admin: 10/01/16 10:21 Dose: Not Given Aspirin (Aspirin Chewable) 81 mg PO DAILY [facility] Last Admin: 10/01/16 10:21 Dose: Not Given Clopidogrel Bisulfate (Plavix) 75 mg PO DAILY [facility] Last Admin: 10/01/16 10:20 Dose: Not Given Diltiazem HCl (Cardizem) 30 mg PO Q6H [facility] Last Admin: 10/01/16 21:17 Dose: 30 mg Enoxaparin Sodium (Lovenox) 40 mg SC DAILY [facility] Last Admin: 10/01/16 10:21 Dose: 40 mg Famotidine (Pepcid) 20 mg PO DAILY [facility] Last Admin: 10/01/16 10:21 Dose: Not Given Hydralazine HCl (Apresoline) 10 mg IVP Q6H PRN PRN Reason: Other Last Admin: 09/29/16 20:30 Dose: 10 mg Ceftriaxone Sodium 2 gm/ (Sodium Chloride) 100 mls @ 100 mls/hr IVPB Q24H [facility] Last Admin: 09/30/16 23:51 Dose: 100 mls/hr Azithromycin 500 mg/ Sodium (Chloride) 250 mls @ 250 mls/hr IVPB Q24H [facility] Last Admin: 10/01/16 21:15 Dose: 250 mls/hr Dexmedetomidine HCl 400 mcg/ (Sodium Chloride) 100 mls @ 21.9 mls/hr IVPB TITR PRN; Protocol; 1.2 MCG/KG/HR PRN Reason: Agitation Last Admin: 10/01/16 21:08 Dose: 27.37 mls/hr Insulin Human Regular (Novolin R) 0 unit SC Q6 [facility] PRN Reason: Protocol Last Admin: 10/01/16 17:17 Dose: Not Given Lactulose (Enulose) 20 gm PO HS [facility] Last Admin: 10/01/16 21:12 Dose: 20 gm Lisinopril (Zestril) 20 mg NG DAILY [facility] Last Admin: 10/01/16 10:20 Dose: Not Given Methylprednisolone (Solu-Medrol) 40 mg IV Q12 [facility] Last Admin: 10/01/16 22:04 Dose: 40 mg Midazolam HCl (Versed Inj) 2 mg IVP Q4H PRN PRN Reason: Agitation Last Admin: 10/01/16 17:04 Dose: 2 mg Nicotine (Nicoderm Cq) 1 patch TD DAILY [facility] Last Admin: 10/01/16 10:23 Dose: 1 patch Rosuvastatin Calcium (Crestor) 10 mg PO HS [facility] Last Admin: 10/01/16 21:13 Dose: 10 mg Results - Vital Signs Recent Vital Signs: Last Vital Signs Temp 97.2 F L 10/01/16 20:00 Pulse 75 10/01/16 22:00 Resp 16 10/01/16 22:00 BP 148/67 10/01/16 22:00 Pulse Ox 96 10/01/16 22:00 - Labs Result Diagrams: 10/01/16 06:40 10/01/16 06:40 Labs: Laboratory Results - last 24 hr 09/30/16 10/01/16 10/01/16 23:59 05:21 05:53 WBC RBC Hgb Hct MCV MCH MCHC RDW Plt Count MPV Neut % (Auto) Lymph % (Auto) [place] % (Auto) Eos % (Auto) Baso % (Auto) Neut # Lymph # [place] # Eos # Baso # Neutrophils % (Manual) Band Neutrophils % Lymphocytes % (Manual) Monocytes % (Manual) Platelet Estimate RBC Morphology PT INR APTT Puncture Site Rr pCO2 41 pO2 86 HCO3 24.3 ABG pH 7.38 ABG Total CO2 25.6 ABG O2 Saturation 98.6 H ABG Base Excess -0.8 Fish Test Pos ABG Potassium 3.7 A-a O2 Difference 219.0 Respiratory Index 2.5 Sodium 143.0 Chloride 114.0 H Glucose 176 H Lactate 0.7 Mechanical Rate 16 FiO2 50.0 Tidal Volume 450 PEEP 5 Potassium Carbon Dioxide Anion Gap BUN Creatinine Est GFR ( Amer) Est GFR (Non-Af Amer) POC Glucose (mg/dL) 190 H 221 H Random Glucose Calcium Phosphorus Magnesium Total Bilirubin AST ALT Alkaline Phosphatase Total Protein Albumin Globulin Albumin/Globulin Ratio Arterial Blood Potassium 3.7 10/01/16 10/01/16 10/01/16 06:40 12:15 17:15 WBC 10.8 RBC 4.49 Hgb 13.6 Hct 41.1 MCV 91.4 MCH 30.2 MCHC 33.1 RDW 14.5 Plt Count 205 MPV 10.0 Neut % (Auto) 94.5 H Lymph % (Auto) 1.7 L [place] % (Auto) 3.0 Eos % (Auto) 0.1 Baso % (Auto) 0.7 Neut # 10.2 H Lymph # 0.2 L [place] # 0.3 Eos # 0.0 Baso # 0.1 Neutrophils % (Manual) 97 H Band Neutrophils % 1 Lymphocytes % (Manual) 1 L Monocytes % (Manual) 1 Platelet Estimate Normal RBC Morphology Normal PT 11.6 INR 1.0 APTT 23 Puncture Site pCO2 pO2 HCO3 ABG pH ABG Total CO2 ABG O2 Saturation ABG Base Excess Fish Test ABG Potassium A-a O2 Difference Respiratory Index Sodium 144 Chloride 106 Glucose Lactate Mechanical Rate FiO2 Tidal Volume PEEP Potassium 3.9 Carbon Dioxide 24 Anion Gap 18 BUN 53 H Creatinine 1.2 Est GFR ( Amer) 52 Est GFR (Non-Af Amer) 43 POC Glucose (mg/dL) 132 H 126 H Random Glucose 167 H Calcium 7.8 L Phosphorus 4.0 Magnesium 2.2 Total Bilirubin 0.4 AST 43 H D ALT 39 Alkaline Phosphatase 35 L Total Protein 5.3 L Albumin 2.5 L Globulin 2.8 Albumin/Globulin Ratio 0.9 L Arterial Blood Potassium Attending/Attestation - Attestation I have personally seen and examined this patient.: Yes I have fully participated in the care of the patient.: Yes I have reviewed all pertinent clinical information: Yes Notes (Text): 10/01/16 22:09 Pt was seen and examined at bedside on 09/30/16 Agree with above note and assessment. Pt with Colonic Ileus with Respiratory failure C.w current mx GI consult Correct electrolyte. Plan d.w pt in detail Risk and benefit explained in detail We will f.u.
--- NOTE | 2016-09-30 16:41 | CP.PCM.CON ---
History of Present Illness - History of Present Illness History of Present Illness: CC: Colon distension HPI: Asked to evaluate abdominal distension. Patient is in ICU, on ventilator for respiratory failure, noted to have abdominal distension. CT shows colonic distension with air fluid levels. Evaluated by surgery team. No electrolyte disturbances. Has had BMs. Patient reports she frequently gets constipation and abdominal distension. No GI bleeding. Review of Systems - Review of Systems Systems not reviewed;Unavailable: Intubated Past Patient History - Past Medical History & Family History Past Medical History?: No - Past Social History Smoking Status: Current Some Days Smoker - CARDIAC Hx Hypertension: Yes - PULMONARY Hx Chronic Obstructive Pulmonary Disease (COPD): Yes - ENDOCRINE/METABOLIC Hx Hypothyroidism: Yes - MUSCULOSKELETAL/RHEUMATOLOGICAL Hx Falls: No (unknown) - PSYCHIATRIC Hx Substance Use: Yes - SURGICAL HISTORY Hx Surgeries: No (UNOBTAINABLE) - ANESTHESIA Hx Anesthesia: No Hx Anesthesia Reactions: No Hx Malignant Hyperthermia: No Has any member of the family had a problem w/ anesthesia?: No Meds Allergies/Adverse Reactions: Allergies Allergy/AdvReac Type Severity Reaction Status Date / Time No Known Allergies Allergy Verified 09/24/16 15:06 - Medications Medications: Current Medications Albuterol/Ipratropium (Duoneb 3 Mg/0.5 Mg (3 Ml) Ud) 3 ml INH RQ4 [facility] Last Admin: 09/30/16 11:45 Dose: 3 ml Amlodipine Besylate (Norvasc) 10 mg PO DAILY [facility] Last Admin: 09/30/16 09:50 Dose: 10 mg Aspirin (Aspirin Chewable) 81 mg PO DAILY [facility] Last Admin: 09/30/16 09:50 Dose: 81 mg Clopidogrel Bisulfate (Plavix) 75 mg PO DAILY [facility] Last Admin: 09/30/16 09:50 Dose: 75 mg Diltiazem HCl (Cardizem) 30 mg PO Q6H [facility] Last Admin: 09/30/16 09:53 Dose: 30 mg Enoxaparin Sodium (Lovenox) 40 mg SC DAILY [facility] Last Admin: 09/30/16 09:50 Dose: 40 mg Famotidine (Pepcid) 20 mg PO DAILY [facility] Last Admin: 09/30/16 09:53 Dose: 20 mg Hydralazine HCl (Apresoline) 10 mg IVP Q6H PRN PRN Reason: Other Last Admin: 09/29/16 20:30 Dose: 10 mg Ceftriaxone Sodium 2 gm/ (Sodium Chloride) 100 mls @ 100 mls/hr IVPB Q24H [facility] Last Admin: 09/30/16 00:16 Dose: 100 mls/hr Azithromycin 500 mg/ Sodium (Chloride) 250 mls @ 250 mls/hr IVPB Q24H [facility] Last Admin: 09/29/16 22:07 Dose: 250 mls/hr Dexmedetomidine HCl 400 mcg/ (Sodium Chloride) 100 mls @ 3.65 mls/hr IVPB TITR PRN; Protocol; 0.2 MCG/KG/HR PRN Reason: Agitation Last Admin: 09/30/16 08:33 Dose: 29.6 mls/hr Insulin Human Regular (Novolin R) 0 unit SC Q6 [facility] PRN Reason: Protocol Last Admin: 09/30/16 05:30 Dose: Not Given Lactulose (Enulose) 20 gm PO [facility] Last Admin: 09/29/16 22:12 Dose: 20 gm Lisinopril (Zestril) 20 mg NG DAILY [facility] Last Admin: 09/30/16 09:54 Dose: 20 mg Methylprednisolone (Solu-Medrol) 40 mg IV Q12 [facility] Last Admin: 09/30/16 09:50 Dose: 40 mg Midazolam HCl (Versed Inj) 2 mg IVP Q4H PRN PRN Reason: Agitation Last Admin: 09/30/16 08:00 Dose: 2 mg Nicotine (Nicoderm Cq) 1 patch TD DAILY [facility] Last Admin: 09/30/16 09:53 Dose: 1 patch Rosuvastatin Calcium (Crestor) 10 mg PO [facility] Last Admin: 09/29/16 22:12 Dose: 10 mg Physical Exam - Constitutional Appears: Non-toxic - Head Exam Head Exam: ATRAUMATIC, NORMOCEPHALIC Additional comments: OGT and ETT - Eye Exam Eye Exam: absent: Scleral icterus - Respiratory Exam Respiratory Exam: Prolonged Expiratory Phase, NORMAL BREATHING PATTERN - Cardiovascular Exam Cardiovascular Exam: REGULAR RHYTHM - GI/Abdominal Exam GI & Abdominal Exam: Distended, Soft. absent: Mass, Tenderness (High pitched bowel sounds) Results - Vital Signs Recent Vital Signs: Last Vital Signs Temp 99 F 09/30/16 12:00 Pulse 76 09/30/16 15:00 Resp 18 09/30/16 15:00 BP 98/53 L 09/30/16 15:00 Pulse Ox 97 09/30/16 15:00 - Labs Result Diagrams: 09/30/16 06:07 09/30/16 06:07 Labs: Laboratory Results - last 24 hr 09/29/16 09/30/16 09/30/16 18:33 01:12 05:23 WBC RBC Hgb Hct MCV MCH MCHC RDW Plt Count MPV Neut % (Auto) Lymph % (Auto) [place] % (Auto) Eos % (Auto) Baso % (Auto) Neut # Lymph # [place] # Eos # Baso # Neutrophils % (Manual) Lymphocytes % (Manual) Reactive Lymphs % Monocytes % (Manual) Platelet Estimate Large Platelets Poikilocytosis (manual Puncture Site Rrad pCO2 42 pO2 97 HCO3 24.0 ABG pH 7.37 ABG Total CO2 25.6 ABG O2 Saturation 98.9 H ABG Base Excess -1.1 ABG Hemoglobin 14.1 ABG Carboxyhemoglobin 1.6 H POC ABG HHb (Measured) 1.1 ABG Methemoglobin 1.3 Fish Test Pos A-a O2 Difference 207.0 Respiratory Index 2.1 Hgb O2 Saturation 96.0 Mechanical Rate 16 FiO2 50.0 Tidal Volume 450 PEEP 5 Sodium Potassium Chloride Carbon Dioxide Anion Gap BUN Creatinine Est GFR ( Amer) Est GFR (Non-Af Amer) POC Glucose (mg/dL) 118 H 171 H Random Glucose Calcium Phosphorus Magnesium Total Bilirubin AST ALT Alkaline Phosphatase Total Protein Albumin Globulin Albumin/Globulin Ratio 09/30/16 09/30/16 09/30/16 05:27 06:07 11:52 WBC 10.8 RBC 4.86 Hgb 14.4 Hct 43.9 MCV 90.3 MCH 29.7 MCHC 32.9 L RDW 14.8 H Plt Count 190 MPV 9.3 Neut % (Auto) 92.6 H Lymph % (Auto) 4.3 L [place] % (Auto) 2.6 Eos % (Auto) 0.0 Baso % (Auto) 0.5 Neut # 10.0 H Lymph # 0.5 L [place] # 0.3 Eos # 0.0 Baso # 0.1 Neutrophils % (Manual) 91 H Lymphocytes % (Manual) 4 L Reactive Lymphs % 2 H Monocytes % (Manual) 3 Platelet Estimate Normal Large Platelets Present Poikilocytosis (manual Slight Puncture Site pCO2 pO2 HCO3 ABG pH ABG Total CO2 ABG O2 Saturation ABG Base Excess ABG Hemoglobin ABG Carboxyhemoglobin POC ABG HHb (Measured) ABG Methemoglobin Fish Test A-a O2 Difference Respiratory Index Hgb O2 Saturation Mechanical Rate FiO2 Tidal Volume PEEP Sodium 144 Potassium 3.9 Chloride 105 Carbon Dioxide 27 Anion Gap 17 BUN 45 H Creatinine 1.0 Est GFR ( Amer) > 60 Est GFR (Non-Af Amer) 53 POC Glucose (mg/dL) 167 H 177 H Random Glucose 156 H Calcium 8.0 L Phosphorus 3.7 Magnesium 1.8 Total Bilirubin 0.3 AST 23 ALT 46 Alkaline Phosphatase 43 Total Protein 5.4 L Albumin 2.6 L Globulin 2.8 Albumin/Globulin Ratio 0.9 L Assessment & Plan (1) Respiratory failure Status: Acute Priority: High (2) Abdominal distension Assessment and Plan: Colon ileus more likely. R/O obstruction Follow up xrays Monitor for BMs Rectal tube decompression Status: Acute
[2016-09-30] MEDS: Azithromycin 500 MG in Sodium Chloride 0.9% 250 ML IVPB SCH (21:38)
[2016-10-01] MEDS: Albuterol-Ipratrop 3 mg / 0.5 (3 ml) UD INH SCH ×5 (00:01→15:34)
[2016-10-01] MEDS: (Novolin R) Insulin Human Regular 100 units/ml vial SC SCH ×5 (00:45→17:17)
[2016-10-01] MEDS: Dexmedetomidine Hydrochloride 400 MCG in Sodium Chloride 0.9% 96 ML IVPB PRN ×6 (01:21→21:08)
--- NOTE | 2016-10-01 02:19 | CP.PCM.PN ---
Subjective - Date & Time of Evaluation Date of Evaluation: 09/30/16 Time of Evaluation: 12:32 - Subjective Subjective: Patient was seen and examined at bedside.continues to have abd pain, Ng tube in pace, No acute distress on ventilator. No acute events overnight. Nursing staff reports no issues. Patient remains intubated (TV 450mL, FiO2 50%, Rate 16 , PEEP 5). The patient will be trialed on CPAP 15/5 for possible extubation today. Today, the patient was taken off PRVC and placed on 15/5 CPAP with pressure support for extubation trial. The patient's magnesium was replaced and duonebs reordered q4 [facility]. Objective - Vital Signs/Intake and Output Vital Signs (last 24 hours): Temp Pulse Resp BP Pulse Ox 99.2 F 72 16 128/65 97 10/01/16 00:00 09/30/16 21:00 10/01/16 01:00 10/01/16 01:00 10/01/16 01:00 Intake and Output: 09/30/16 10/01/16 18:59 06:59 Intake Total 418.6 296 Output Total 530 260 Balance -111.4 36 - Medications Medications: Current Medications Albuterol/Ipratropium (Duoneb 3 Mg/0.5 Mg (3 Ml) Ud) 3 ml INH RQ4 [facility] Last Admin: 10/01/16 00:01 Dose: 3 ml Amlodipine Besylate (Norvasc) 10 mg PO DAILY [facility] Last Admin: 09/30/16 09:50 Dose: 10 mg Aspirin (Aspirin Chewable) 81 mg PO DAILY [facility] Last Admin: 09/30/16 09:50 Dose: 81 mg Clopidogrel Bisulfate (Plavix) 75 mg PO DAILY [facility] Last Admin: 09/30/16 09:50 Dose: 75 mg Diltiazem HCl (Cardizem) 30 mg PO Q6H [facility] Last Admin: 09/30/16 21:38 Dose: 30 mg Enoxaparin Sodium (Lovenox) 40 mg SC DAILY [facility] Last Admin: 09/30/16 09:50 Dose: 40 mg Famotidine (Pepcid) 20 mg PO DAILY [facility] Last Admin: 09/30/16 09:53 Dose: 20 mg Hydralazine HCl (Apresoline) 10 mg IVP Q6H PRN PRN Reason: Other Last Admin: 09/29/16 20:30 Dose: 10 mg Ceftriaxone Sodium 2 gm/ (Sodium Chloride) 100 mls @ 100 mls/hr IVPB Q24H [facility] Last Admin: 09/30/16 23:51 Dose: 100 mls/hr Azithromycin 500 mg/ Sodium (Chloride) 250 mls @ 250 mls/hr IVPB Q24H [facility] Last Admin: 09/30/16 21:38 Dose: 250 mls/hr Dexmedetomidine HCl 400 mcg/ (Sodium Chloride) 100 mls @ 3.65 mls/hr IVPB TITR PRN; Protocol; 0.2 MCG/KG/HR PRN Reason: Agitation Last Admin: 10/01/16 01:21 Dose: 28 mls/hr Insulin Human Regular (Novolin R) 0 unit SC Q6 [facility] PRN Reason: Protocol Last Admin: 10/01/16 00:45 Dose: 1 unit Lactulose (Enulose) 20 gm PO HS [facility] Last Admin: 09/30/16 21:37 Dose: 20 gm Lisinopril (Zestril) 20 mg NG DAILY [facility] Last Admin: 09/30/16 09:54 Dose: 20 mg Methylprednisolone (Solu-Medrol) 40 mg IV Q12 [facility] Last Admin: 09/30/16 21:37 Dose: 40 mg Midazolam HCl (Versed Inj) 2 mg IVP Q4H PRN PRN Reason: Agitation Last Admin: 09/30/16 16:57 Dose: 2 mg Nicotine (Nicoderm Cq) 1 patch TD DAILY [facility] Last Admin: 09/30/16 09:53 Dose: 1 patch Rosuvastatin Calcium (Crestor) 10 mg PO [facility] Last Admin: 09/30/16 21:38 Dose: 10 mg - Labs Labs: 09/30/16 06:07 09/30/16 06:07 PT 12.2 SECONDS (9.7-12.2) 09/29/16 06:38 INR 1.1 09/29/16 06:38 APTT 24 SECONDS (21-34) 09/29/16 06:38 - Constitutional Appears: No Acute Distress - Head Exam Head Exam: ATRAUMATIC, NORMAL INSPECTION, NORMOCEPHALIC - Eye Exam Eye Exam: EOMI, Normal appearance, PERRL Pupil Exam: NORMAL ACCOMODATION, PERRL - Respiratory Exam Respiratory Exam: Clear to Ausculation Bilateral, NORMAL BREATHING PATTERN - Cardiovascular Exam Cardiovascular Exam: REGULAR RHYTHM, +S1, +S2. absent: Murmur - GI/Abdominal Exam GI & Abdominal Exam: Tenderness, Normal Bowel Sounds Assessment and Plan (1) Acute respiratory failure with hypoxia and hypercarbia Status: Resolved (2) Altered mental status Status: Resolved (3) Acute GA Status: Acute
[2016-10-01 05:39] LABS: ABG ALLEN TEST POS; ABG MECHANICAL RATE 16; ATERIAL BLOOD GAS PEEP 5; DRAW SITE RR
[2016-10-01 07:10] LABS: POTASSIUM 3.9 mmol/L (3.6-5.2)
[2016-10-01 07:12] LABS: ALB/GLOB RATIO 0.9 (1.0-2.1); BILIRUBIN,TOTAL 0.4 mg/dL (0.2-1.3); TOTAL PROTEIN 5.3 g/dL (6.3-8.3)
[2016-10-01 07:13] LABS: CALCIUM 7.8 mg/dl (8.6-10.4); MAGNESIUM 2.2 mg/dL (1.6-2.3)
--- NOTE | 2016-10-01 07:20 | CP.PCM.PN ---
<Rodger Hunter - Last Filed: 10/01/16 07:17> Subjective - Date & Time of Evaluation Date of Evaluation: 10/01/16 Time of Evaluation: 07:17 - Subjective Subjective: Surgery: Dr. Jimenez Patient remains intubated in ICU however patient awake and slightly anxious about removing ETT. Patient denies pain to the abdomen. Per nursing report patient has has a total of 5 large BMs since yesterday afternoon. No other acute events noted. Objective - Vital Signs/Intake and Output Vital Signs (last 24 hours): Temp Pulse Resp BP Pulse Ox 99 F 71 18 108/53 L 97 10/01/16 04:00 10/01/16 06:00 10/01/16 06:00 10/01/16 06:00 10/01/16 06:00 Intake and Output: 10/01/16 10/01/16 06:59 18:59 Intake Total 508 Output Total 355 Balance 153 - Medications Medications: Current Medications Albuterol/Ipratropium (Duoneb 3 Mg/0.5 Mg (3 Ml) Ud) 3 ml INH RQ4 COUNTS [facility]CLUDE 234 BEDS AT THE [facility] Last Admin: 10/01/16 03:13 Dose: 3 ml Amlodipine Besylate (Norvasc) 10 mg PO DAILY COUNTS INCLUDE 234 BEDS AT THE [facility] Last Admin: 09/30/16 09:50 Dose: 10 mg Aspirin (Aspirin Chewable) 81 mg PO DAILY COUNTS INCLUDE 234 BEDS AT THE [facility] Last Admin: 09/30/16 09:50 Dose: 81 mg Clopidogrel Bisulfate (Plavix) 75 mg PO DAILY COUNTS INCLUDE 234 BEDS AT THE [facility] Last Admin: 09/30/16 09:50 Dose: 75 mg Diltiazem HCl (Cardizem) 30 mg PO Q6H COUNTS INCLUDE 234 BEDS AT [facility] Last Admin: 10/01/16 04:33 Dose: 30 mg Enoxaparin Sodium (Lovenox) 40 mg SC DAILY COUNTS INCLUDE 234 BEDS AT [facility] Last Admin: 09/30/16 09:50 Dose: 40 mg Famotidine (Pepcid) 20 mg PO DAILY COUNTS INCLUDE 234 BEDS AT [facility] Last Admin: 09/30/16 09:53 Dose: 20 mg Hydralazine HCl (Apresoline) 10 mg IVP Q6H PRN PRN Reason: Other Last Admin: 09/29/16 20:30 Dose: 10 mg Ceftriaxone Sodium 2 gm/ (Sodium Chloride) 100 mls @ 100 mls/hr IVPB Q24H COUNTS INCLUDE 234 BEDS AT THE [facility] Last Admin: 09/30/16 23:51 Dose: 100 mls/hr Azithromycin 500 mg/ Sodium (Chloride) 250 mls @ 250 mls/hr IVPB Q24H COUNTS INCLUDE 234 BEDS AT THE [facility] Last Admin: 09/30/16 21:38 Dose: 250 mls/hr Dexmedetomidine HCl 400 mcg/ (Sodium Chloride) 100 mls @ 21.9 mls/hr IVPB TITR PRN; Protocol; 1.2 MCG/KG/HR PRN Reason: Agitation Insulin Human Regular (Novolin R) 0 unit SC Q6 [facility] PRN Reason: Protocol Last Admin: 10/01/16 07:00 Dose: 3 unit Lactulose (Enulose) 20 gm PO HS COUNTS INCLUDE 234 BEDS AT [facility] Last Admin: 09/30/16 21:37 Dose: 20 gm Lisinopril (Zestril) 20 mg NG DAILY COUNTS INCLUDE 234 BEDS AT [facility] Last Admin: 09/30/16 09:54 Dose: 20 mg Methylprednisolone (Solu-Medrol) 40 mg IV Q12 COUNTS INCLUDE 234 BEDS AT [facility] Last Admin: 09/30/16 21:37 Dose: 40 mg Midazolam HCl (Versed Inj) 2 mg IVP Q4H PRN PRN Reason: Agitation Last Admin: 09/30/16 16:57 Dose: 2 mg Nicotine (Nicoderm Cq) 1 patch TD DAILY COUNTS INCLUDE 234 BEDS AT [facility] Last Admin: 09/30/16 09:53 Dose: 1 patch Rosuvastatin Calcium (Crestor) 10 mg PO [facility] Last Admin: 09/30/16 21:38 Dose: 10 mg - Labs Labs: 09/30/16 06:07 10/01/16 06:40 PT 12.2 SECONDS (9.7-12.2) 09/29/16 06:38 INR 1.1 09/29/16 06:38 APTT 24 SECONDS (21-34) 09/29/16 06:38 - Constitutional Appears: Non-toxic, No Acute Distress - Head Exam Head Exam: ATRAUMATIC, NORMOCEPHALIC - Eye Exam Eye Exam: EOMI - ENT Exam Additional comments: ETT and OGT in place - Respiratory Exam Additional comments: mechanical ventilation PRVC mode - Cardiovascular Exam Cardiovascular Exam: REGULAR RHYTHM. absent: Tachycardia - GI/Abdominal Exam GI & Abdominal Exam: Distended, Soft. absent: Tenderness Additional comments: infraumbilical vertical midline scar noted however type of surgery unknown due to intubated status - Neurological Exam Neurological Exam: Alert, Awake - Skin Skin Exam: Dry, Intact, Warm Assessment and Plan - Assessment and Plan (Free Text) Assessment: 86 y/o female w/ abdominal distention most likely 2/2 colonic ileus Plan: -f/u am Abd flat plate film for comparison -serial abdominal exams -correct electrolyte disturbances if any -f/u GI recs -no acute surgical intervention at this time -further recs per Dr. Jimenez AKWhite PGY1 <Jai Jimenez - Last Filed: 10/02/16 18:07> Objective - Vital Signs/Intake and Output Vital Signs (last 24 hours): Temp Pulse Resp BP Pulse Ox 98.2 F 112 H 26 H 108/75 94 L 10/02/16 16:00 10/02/16 17:00 10/02/16 17:00 10/02/16 17:00 10/02/16 17:00 Intake and Output: 10/02/16 10/02/16 06:59 18:59 Intake Total 985.0 135.1 Output Total 640 320 Balance 345.0 -184.9 - Medications Medications: Current Medications Albuterol/Ipratropium (Duoneb 3 Mg/0.5 Mg (3 Ml) Ud) 3 ml INH RQ4 COUNTS INCLUDE 234 BEDS AT [facility] Last Admin: 10/02/16 16:20 Dose: 3 ml Amlodipine Besylate (Norvasc) 10 mg PO DAILY COUNTS INCLUDE 234 BEDS AT [facility] Last Admin: 10/02/16 10:29 Dose: 10 mg Aspirin (Aspirin Chewable) 81 mg PO DAILY COUNTS INCLUDE 234 BEDS AT [facility] Last Admin: 10/02/16 10:30 Dose: 81 mg Budesonide (Pulmicort Respules) 0.5 mg INH RQ12 COUNTS INCLUDE 234 BEDS AT [facility] Clopidogrel Bisulfate (Plavix) 75 mg PO DAILY COUNTS INCLUDE 234 BEDS AT [facility] Last Admin: 10/02/16 10:29 Dose: 75 mg Diltiazem HCl (Cardizem) 30 mg PO Q6H COUNTS INCLUDE 234 BEDS AT [facility] Last Admin: 10/02/16 17:25 Dose: Not Given Enoxaparin Sodium (Lovenox) 40 mg SC DAILY COUNTS INCLUDE 234 BEDS AT [facility] Last Admin: 10/02/16 10:03 Dose: 40 mg Famotidine (Pepcid) 20 mg PO DAILY COUNTS INCLUDE 234 BEDS AT [facility] Last Admin: 10/02/16 10:29 Dose: 20 mg Hydralazine HCl (Apresoline) 10 mg IVP Q6H PRN PRN Reason: Other Last Admin: 09/29/16 20:30 Dose: 10 mg Ceftriaxone Sodium 2 gm/ (Sodium Chloride) 100 mls @ 100 mls/hr IVPB Q24H [facility] Last Admin: 10/01/16 22:47 Dose: 100 mls/hr Azithromycin 500 mg/ Sodium (Chloride) 250 mls @ 250 mls/hr IVPB Q24H [facility] Last Admin: 10/01/16 21:15 Dose: 250 mls/hr Dexmedetomidine HCl 400 mcg/ (Sodium Chloride) 100 mls @ 4.13 mls/hr IVPB TITR PRN; Protocol; 0.2 MCG/KG/HR PRN Reason: Agitation Last Admin: 10/02/16 17:14 Dose: 4.13 mls/hr Insulin Human Regular (Novolin R) 0 unit SC Q6 [facility] PRN Reason: Protocol Last Admin: 10/02/16 18:05 Dose: Not Given Lactulose (Enulose) 20 gm PO HS COUNTS INCLUDE 234 BEDS AT [facility] Last Admin: 10/01/16 21:12 Dose: 20 gm Lisinopril (Zestril) 20 mg NG DAILY COUNTS INCLUDE 234 BEDS AT [facility] Last Admin: 10/02/16 10:29 Dose: 20 mg Methylprednisolone (Solu-Medrol) 40 mg IV Q12 COUNTS INCLUDE 234 BEDS AT [facility] Last Admin: 10/02/16 10:30 Dose: 40 mg Nicotine (Nicoderm Cq) 1 patch TD DAILY COUNTS INCLUDE 234 BEDS AT [facility] Last Admin: 10/02/16 10:05 Dose: 1 patch Rosuvastatin Calcium (Crestor) 10 mg PO HS COUNTS INCLUDE 234 BEDS AT [facility] Last Admin: 10/01/16 21:13 Dose: 10 mg - Labs Labs: 10/02/16 06:12 10/02/16 06:12 PT 11.9 SECONDS (9.7-12.2) 10/02/16 06:12 INR 1.1 10/02/16 06:12 APTT 28 SECONDS (21-34) D 10/02/16 06:12 Attending/Attestation - Attestation I have personally seen and examined this patient.: Yes I have fully participated in the care of the patient.: Yes I have reviewed all pertinent clinical information, including history, physical exam and plan: Yes Notes (Text): 10/02/16 18:06 Pt was seen and examined at bedside on 10/01/16 Agree with above note and assessment Pt had bowel movements C.w current mx Plan d/w ICU attending.
[2016-10-01 08:12] LABS: BASO # 0.1 K/uL (0.0-0.2); BASO % 0.7 % (0.0-2.0); EOS % 0.1 % (0.0-4.0); HEMATOCRIT 41.1 % (34.0-47.0); LYMPH # 0.2 K/uL (1.0-4.3); LYMPH % 1.7 % (20.0-40.0); MEAN CELL VOLUME 91.4 fL (81.0-99.0); MEAN CORPUSCULAR HEMOGLOBIN 30.2 pg (27.0-31.0); MEAN CORPUSCULAR HGB CONC 33.1 g/dL (33.0-37.0); MONO # 0.3 K/uL (0.0-0.8); NRBC % 0.1 % (0.0-2.0); PLATELET COUNT 205 K/uL (130-400); RED CELL DISTRIBUTION WIDTH 14.5 % (11.5-14.5); WHITE BLOOD COUNT 10.8 K/uL (4.8-10.8)
--- NOTE | 2016-10-01 08:49 | CP.PCM.PN ---
Subjective - Date & Time of Evaluation Date of Evaluation: 10/01/16 Time of Evaluation: 08:46 - Subjective Subjective: F/u abdom distention. RN reports ++ BMs. No report of RB, melena, hemoptysis, hematuria, SZ, tremor,. Intubated. Objective - Vital Signs/Intake and Output Vital Signs (last 24 hours): Temp Pulse Resp BP Pulse Ox 98.1 F 73 18 114/63 97 10/01/16 08:00 10/01/16 08:00 10/01/16 08:00 10/01/16 08:00 10/01/16 08:00 Intake and Output: 10/01/16 10/01/16 06:59 18:59 Intake Total 539 55.4 Output Total 440 Balance 99 55.4 - Medications Medications: Current Medications Albuterol/Ipratropium (Duoneb 3 Mg/0.5 Mg (3 Ml) Ud) 3 ml INH RQ4 [facility] Last Admin: 10/01/16 07:26 Dose: 3 ml Amlodipine Besylate (Norvasc) 10 mg PO DAILY [facility] Last Admin: 09/30/16 09:50 Dose: 10 mg Aspirin (Aspirin Chewable) 81 mg PO DAILY [facility] Last Admin: 09/30/16 09:50 Dose: 81 mg Clopidogrel Bisulfate (Plavix) 75 mg PO DAILY [facility] Last Admin: 09/30/16 09:50 Dose: 75 mg Diltiazem HCl (Cardizem) 30 mg PO Q6H [facility] Last Admin: 10/01/16 04:33 Dose: 30 mg Enoxaparin Sodium (Lovenox) 40 mg SC DAILY [facility] Last Admin: 09/30/16 09:50 Dose: 40 mg Famotidine (Pepcid) 20 mg PO DAILY [facility] Last Admin: 09/30/16 09:53 Dose: 20 mg Hydralazine HCl (Apresoline) 10 mg IVP Q6H PRN PRN Reason: Other Last Admin: 09/29/16 20:30 Dose: 10 mg Ceftriaxone Sodium 2 gm/ (Sodium Chloride) 100 mls @ 100 mls/hr IVPB Q24H [facility] Last Admin: 09/30/16 23:51 Dose: 100 mls/hr Azithromycin 500 mg/ Sodium (Chloride) 250 mls @ 250 mls/hr IVPB Q24H [facility] Last Admin: 09/30/16 21:38 Dose: 250 mls/hr Dexmedetomidine HCl 400 mcg/ (Sodium Chloride) 100 mls @ 21.9 mls/hr IVPB TITR PRN; Protocol; 1.2 MCG/KG/HR PRN Reason: Agitation Last Admin: 10/01/16 07:22 Dose: 25.55 mls/hr Insulin Human Regular (Novolin R) 0 unit SC Q6 [facility] PRN Reason: Protocol Last Admin: 10/01/16 07:00 Dose: 3 unit Lactulose (Enulose) 20 gm PO HS [facility] Last Admin: 09/30/16 21:37 Dose: 20 gm Lisinopril (Zestril) 20 mg NG DAILY [facility] Last Admin: 09/30/16 09:54 Dose: 20 mg Methylprednisolone (Solu-Medrol) 40 mg IV Q12 [facility] Last Admin: 09/30/16 21:37 Dose: 40 mg Midazolam HCl (Versed Inj) 2 mg IVP Q4H PRN PRN Reason: Agitation Last Admin: 09/30/16 16:57 Dose: 2 mg Nicotine (Nicoderm Cq) 1 patch TD DAILY [facility] Last Admin: 09/30/16 09:53 Dose: 1 patch Rosuvastatin Calcium (Crestor) 10 mg PO HS [facility] Last Admin: 09/30/16 21:38 Dose: 10 mg - Labs Labs: 10/01/16 06:40 10/01/16 06:40 PT 11.6 SECONDS (9.7-12.2) 10/01/16 06:40 INR 1.0 10/01/16 06:40 APTT 23 SECONDS (21-34) 10/01/16 06:40 - Constitutional Appears: Non-toxic - Respiratory Exam Respiratory Exam: Rhonchi - Cardiovascular Exam Cardiovascular Exam: RRR - GI/Abdominal Exam GI & Abdominal Exam: Distended, Normal Bowel Sounds. absent: Mass - Neurological Exam Neurological Exam: Alert, Awake Assessment and Plan (1) Respiratory failure Status: Acute (2) Abdominal distension Assessment & Plan: Colonic ileus. Now passing stool. REC: F/U KUB. Status: Acute (3) Acute CT Status: Acute
[2016-10-01 08:50] LABS: NEUTROPHIL 97 % (50-75); TOTAL CELLS COUNTED 100
[2016-10-01] MEDS: Enoxaparin 40 mg Syringe SC SCH (10:21)
[2016-10-01] MEDS: MethylPREDNISolone 40 mg Vial IV SCH ×2 (11:00→22:04)
--- NOTE | 2016-10-01 11:20 | RAD ---
HISTORY: ileus, comparison COMPARISON: 09/29/2026 FINDINGS: BOWEL: Mild dilatation of the transverse and ascending colon. No evidence of small bowel obstruction. No masses or abnormal intra-abdominal calcifications. Nasogastric tube tip in left upper quadrant of abdomen. No definite free intraperitoneal air. BONES: Normal. OTHER FINDINGS: None. IMPRESSION: Mild colonic dilatation. No evidence of small-bowel obstruction peer
--- NOTE | 2016-10-01 11:21 | RAD ---
HISTORY: ET Tube Evaluation COMPARISON: 09/30/2016 FINDINGS: LUNGS: No active pulmonary disease. PLEURA: No significant pleural effusion identified, no pneumothorax apparent. CARDIOVASCULAR: ETT and NG tube unchanged in position. OSSEOUS STRUCTURES: No significant abnormalities. VISUALIZED UPPER ABDOMEN: Normal. OTHER FINDINGS: None. IMPRESSION: No infiltrate. Lines and tubes unchanged.
--- NOTE | 2016-10-01 13:30 | CP.CCUPN ---
<Fabian Levy - Last Filed: 10/01/16 13:27> CCU Subjective - Physician Review Subjective (Free Text): 09/24/16 13:39 Patient was seen and examined at bedside. No acute distress on ventilator. No acute events overnight. Nursing staff reports no issues. Patient is resting comfortably on the bed, maintained on a propofol drip 10mcg/kg/min. Patient is lethargic but awakens to voice, follows command. Denies any pain or complaints aside from the ventilator. Hypercarbia has improved on todays ABG. 09/25/16 10:20 Patient was seen and examined at bedside. No acute distress on ventilator. No acute events overnight. Nursing staff reports no issues. Patient is resting comfortably on the bed. Patient is on cPAP. Patient is planned for extubation today. Hypercarbia has stabilized. Patient is likely at her baseline. Today, nicotine patch was ordered and a fluid challenge (250cc bolus) due to acute rise in BUN/Cr. 09/26/16 13:51 Patient was seen and examined at bedside. No acute distress on ventilator. No acute events overnight. Patient was trialed on CPAP yesterday [id number]. Patient had poor inspiratory volumes and was placed back on vent. The patient was again tried on CPAP this morning but could not maintain adequate tidal volume. The patient was placed back on the ventilator at an increased rate to decrease her PCO2. Today, the patients respiratory rate was increased to 16. A CT of the Chest was ordered. Feeds were restarted, and lovenox 40mg sc daily was started for dvt prophylaxis. 09/27/16 08:40 Patient was seen and examined at bedside. No acute distress on ventilator. No acute events overnight. Nursing staff reports no issues. Patient remains intubated (TV 450mL, FiO2 50%, Rate 16, PEEP 5) and sedated 0.2mcg/kg/hr on prededex. The patient has bee trialed x2 with CPAP and not tolerated. The patient has continued to have a respiratory acidosis. The patient was tachycardic 5mg of Lopressor was given IV x1 and Cardizem 30mg PO q6 was started. Today, the patient was started on lisinopril for HTN. Hydralazine IV was added PRN for HTN coverage for SBP >170mmHg. The patient was again tried on CPAP 15/ 5 but could not tolerate the transition and thus was put back on PRVC. 09/30/16 12:18 Patient was seen and examined at bedside. No acute distress on ventilator. No acute events overnight. Nursing staff reports no issues. Patient remains intubated (TV 450mL, FiO2 50%, Rate 16, PEEP 5). The patient will be trialed on CPAP 15/5 for possible extubation today. Today, the patient was taken off PRVC and placed on 15/5 CPAP with pressure support for extubation trial. The patient's magnesium was replaced and duonebs reordered q4 juvenal. 10/01/16 13:27 Patient was seen and examined at bedside. No acute distress on ventilator. No acute events overnight. Nursing staff reports no issues. Patient remains intubated (TV 450mL, FiO2 50%, Rate 16, PEEP 5) with a peak pressure of [id number] on PRVC. The patient has complaint of abdominal pain this morning. Her stomach appears grossly distended. GI and general surgery have been consulted to see the patient. The nursing staff reports multiple episodes of diarrhea without formed stool elements. Today, the patient will again be trialed on CPAP with pressure support for possible extubation. Critical Care Time Spent (in minutes): 60 CCU Objective - Vital Signs / Intake & Output Vital Signs (Last 4 hours): Vital Signs Pulse Resp BP Pulse Ox 10/01/16 11:00 69 19 121/61 96 10/01/16 10:00 67 18 124/62 95 Intake and Output (Last 8hrs): Intake & Output 09/30/16 10/01/16 10/01/16 22:59 06:59 14:59 Intake Total 222.2 427 138.5 Output Total 330 280 Balance -107.8 147 138.5 Weight 35.834 kg Intake: Intake, IV Amount 222.2 277 138.5 Right Forearm 84 177 138.5 right upper arm distal 138.2 port left wrist 0 100 Oral 0 Other 150 Output: Urine 330 280 Urethral (Antony) 330 280 - Physical Exam Head: Positive for: Atraumatic, Normocephalic, Other (ET Tube in place) Pupils: Positive for: PERRL Mouth: Positive for: Dry Respiratory/Chest: Positive for: Clear to Auscultation, Good Air Exchange, Rales. Negative for: Respiratory Distress, Accessory Muscle Use Cardiovascular: Positive for: Normal S1, S2, Irregular Rhythm. Negative for: Regular Rate and Rhythm, Murmurs Abdomen: Positive for: Tenderness, Distention, Normal Bowel Sounds, Guarding. Negative for: Rebound Upper Extremity: Positive for: Normal Inspection. Negative for: Cyanosis, Edema Lower Extremity: Positive for: Normal Inspection. Negative for: Edema, CALF TENDERNESS Skin: Positive for: Warm, Dry Psychiatric: Positive for: Alert - Medications Active Medications: Active Medications Generic Name Dose Route Start Last Admin Trade Name Freq PRN Reason Stop Dose Admin Albuterol/Ipratropium 3 ml 09/30/16 12:00 10/01/16 11:27 Duoneb 3 Mg/0.5 Mg (3 Ml) Ud INH 3 ml RQ4 JUVENAL Administration Amlodipine Besylate 10 mg 09/29/16 10:00 10/01/16 10:21 Norvasc PO Not Given DAILY [facility] Aspirin 81 mg 09/24/16 18:30 10/01/16 10:21 Aspirin Chewable PO Not Given DAILY [facility] Clopidogrel Bisulfate 75 mg 09/26/16 10:00 10/01/16 10:20 Plavix PO Not Given DAILY JUVENAL Diltiazem HCl 30 mg 09/26/16 22:15 10/01/16 10:21 Cardizem PO Not Given Q6H JUVENAL Enoxaparin Sodium 40 mg 09/26/16 13:00 10/01/16 10:21 Lovenox SC 40 mg DAILY JUVENAL Administration Famotidine 20 mg 09/29/16 10:00 10/01/16 10:21 Pepcid PO Not Given DAILY [facility] Hydralazine HCl 10 mg 09/29/16 19:58 09/29/16 20:30 Apresoline IVP 10 mg Q6H PRN Administration Other Ceftriaxone Sodium 2 gm/ 100 mls @ 100 mls/hr 09/23/16 23:30 09/30/16 23:51 Sodium Chloride IVPB 100 mls/hr Q24H JUVENAL Administration Azithromycin 500 mg/ Sodium 250 mls @ 250 mls/hr 09/23/16 22:15 09/30/16 21:38 Chloride IVPB 250 mls/hr Q24H JUVENAL Administration Dexmedetomidine HCl 400 mcg/ 100 mls @ 21.9 mls/hr 10/01/16 05:06 10/01/16 09: 46 Sodium Chloride IVPB 25.55 mls/hr TITR PRN Administration Agitation Protocol 1.2 MCG/KG/HR Insulin Human Regular 0 unit 09/27/16 06:00 10/01/16 07:00 Novolin R SC 3 unit Q6 JUVENAL Administration Protocol Lactulose 20 gm 09/29/16 22:00 09/30/16 21:37 Enulose PO 20 gm HS JUVENAL Administration Lisinopril 20 mg 09/29/16 09:54 10/01/16 10:20 Zestril NG Not Given DAILY JUVENAL Methylprednisolone 40 mg 09/29/16 10:00 10/01/16 11:00 Solu-Medrol IV 40 mg Q12 JUVENAL Administration Midazolam HCl 2 mg 09/26/16 09:26 09/30/16 16:57 Versed Inj IVP 2 mg Q4H PRN Administration Agitation Nicotine 1 patch 09/25/16 10:00 10/01/16 10:23 Nicoderm Cq TD 1 patch DAILY JUVENAL Administration Rosuvastatin Calcium 10 mg 09/23/16 22:00 09/30/16 21:38 Crestor PO 10 mg HS JUVENAL Administration - Patient Studies Lab Studies: Lab Studies 10/01/16 10/01/16 10/01/16 Range/Units 06:40 05:53 05:21 WBC 10.8 (4.8-10.8) K/uL RBC 4.49 (3.80-5.20) Mil/uL Hgb 13.6 (11.0-16.0) g/dL Hct 41.1 (34.0-47.0) % MCV 91.4 (81.0-99.0) fL MCH 30.2 (27.0-31.0) pg MCHC 33.1 (33.0-37.0) g/dL RDW 14.5 (11.5-14.5) % Plt Count 205 (130-400) K/uL MPV 10.0 (7.2-11.7) fL Neut % (Auto) 94.5 H (50.0-75.0) % Lymph % (Auto) 1.7 L (20.0-40.0) % [place] % (Auto) 3.0 (0.0-10.0) % Eos % (Auto) 0.1 (0.0-4.0) % Baso % (Auto) 0.7 (0.0-2.0) % Neut # 10.2 H (1.8-7.0) K/uL Lymph # 0.2 L (1.0-4.3) K/uL [place] # 0.3 (0.0-0.8) K/uL Eos # 0.0 (0.0-0.7) K/uL Baso # 0.1 (0.0-0.2) K/uL Neutrophils % (Manual) 97 H (50-75) % Band Neutrophils % 1 (0-2) % Lymphocytes % (Manual) 1 L (20-40) % Monocytes % (Manual) 1 (0-10) % Platelet Estimate Normal (NORMAL) RBC Morphology Normal PT 11.6 (9.7-12.2) SECONDS INR 1.0 APTT 23 (21-34) SECONDS Puncture Site Rr pCO2 41 (35-45) mm/Hg pO2 86 (80-100) mm/Hg HCO3 24.3 (21-28) mmol/L ABG pH 7.38 (7.35-7.45) ABG Total CO2 25.6 (22-28) mmol/L ABG O2 Saturation 98.6 H (95-98) % ABG Base Excess -0.8 (-2.0-3.0) mmol/L Fish Test Pos ABG Potassium 3.7 (3.6-5.2) mmol/L A-a O2 Difference 219.0 mm/Hg Respiratory Index 2.5 Glucose 176 H (65-105) mg/dl Lactate 0.7 (0.7-2.1) mmol/L Mechanical Rate 16 FiO2 50.0 % Tidal Volume 450 PEEP 5 Sodium 144 143.0 (132-148) mmol/L Potassium 3.9 (3.6-5.2) mmol/L Chloride 106 114.0 H (98-107) mmol/L Carbon Dioxide 24 (22-30) mmol/L Anion Gap 18 (10-20) BUN 53 H (7-17) mg/dL Creatinine 1.2 (0.7-1.2) MG/DL Est GFR ( Amer) 52 Est GFR (Non-Af Amer) 43 POC Glucose (mg/dL) 221 H (65-110) mg/dL Random Glucose 167 H (65-105) mg/dL Calcium 7.8 L (8.6-10.4) mg/dl Phosphorus 4.0 (2.5-4.5) mg/dL Magnesium 2.2 (1.6-2.3) mg/dL Total Bilirubin 0.4 (0.2-1.3) mg/dL AST 43 H D (14-36) U/L ALT 39 (9-52) U/L Alkaline Phosphatase 35 L (38-126) U/L Total Protein 5.3 L (6.3-8.3) g/dL Albumin 2.5 L (3.5-5.0) g/dL Globulin 2.8 (2.2-3.9) gm/dL Albumin/Globulin Ratio 0.9 L (1.0-2.1) Arterial Blood Potassium 3.7 (3.6-5.2) mmol/L 09/30/16 09/30/16 Range/Units 23:59 17:08 WBC (4.8-10.8) K/uL RBC (3.80-5.20) Mil/uL Hgb (11.0-16.0) g/dL Hct (34.0-47.0) % MCV (81.0-99.0) fL MCH (27.0-31.0) pg MCHC (33.0-37.0) g/dL RDW (11.5-14.5) % Plt Count (130-400) K/uL MPV (7.2-11.7) fL Neut % (Auto) (50.0-75.0) % Lymph % (Auto) (20.0-40.0) % [place] % (Auto) (0.0-10.0) % Eos % (Auto) (0.0-4.0) % Baso % (Auto) (0.0-2.0) % Neut # (1.8-7.0) K/uL Lymph # (1.0-4.3) K/uL [place] # (0.0-0.8) K/uL Eos # (0.0-0.7) K/uL Baso # (0.0-0.2) K/uL Neutrophils % (Manual) (50-75) % Band Neutrophils % (0-2) % Lymphocytes % (Manual) (20-40) % Monocytes % (Manual) (0-10) % Platelet Estimate (NORMAL) RBC Morphology PT (9.7-12.2) SECONDS INR APTT (21-34) SECONDS Puncture Site pCO2 (35-45) mm/Hg pO2 (80-100) mm/Hg HCO3 (21-28) mmol/L ABG pH (7.35-7.45) ABG Total CO2 (22-28) mmol/L ABG O2 Saturation (95-98) % ABG Base Excess (-2.0-3.0) mmol/L Fish Test ABG Potassium (3.6-5.2) mmol/L A-a O2 Difference mm/Hg Respiratory Index Glucose (65-105) mg/dl Lactate (0.7-2.1) mmol/L Mechanical Rate FiO2 % Tidal Volume PEEP Sodium (132-148) mmol/L Potassium (3.6-5.2) mmol/L Chloride (98-107) mmol/L Carbon Dioxide (22-30) mmol/L Anion Gap (10-20) BUN (7-17) mg/dL Creatinine (0.7-1.2) MG/DL Est GFR ( Amer) Est GFR (Non-Af Amer) POC Glucose (mg/dL) 190 H 151 H (65-110) mg/dL Random Glucose (65-105) mg/dL Calcium (8.6-10.4) mg/dl Phosphorus (2.5-4.5) mg/dL Magnesium (1.6-2.3) mg/dL Total Bilirubin (0.2-1.3) mg/dL AST (14-36) U/L ALT (9-52) U/L Alkaline Phosphatase (38-126) U/L Total Protein (6.3-8.3) g/dL Albumin (3.5-5.0) g/dL Globulin (2.2-3.9) gm/dL Albumin/Globulin Ratio (1.0-2.1) Arterial Blood Potassium (3.6-5.2) mmol/L Laboratory Results - last 24 hr 09/30/16 09/30/16 10/01/16 17:08 23:59 05:21 WBC RBC Hgb Hct MCV MCH MCHC RDW Plt Count MPV Neut % (Auto) Lymph % (Auto) [place] % (Auto) Eos % (Auto) Baso % (Auto) Neut # Lymph # [place] # Eos # Baso # Neutrophils % (Manual) Band Neutrophils % Lymphocytes % (Manual) Monocytes % (Manual) Platelet Estimate RBC Morphology PT INR APTT Puncture Site Rr pCO2 41 pO2 86 HCO3 24.3 ABG pH 7.38 ABG Total CO2 25.6 ABG O2 Saturation 98.6 H ABG Base Excess -0.8 Fish Test Pos ABG Potassium 3.7 A-a O2 Difference 219.0 Respiratory Index 2.5 Sodium 143.0 Chloride 114.0 H Glucose 176 H Lactate 0.7 Mechanical Rate 16 FiO2 50.0 Tidal Volume 450 PEEP 5 Potassium Carbon Dioxide Anion Gap BUN Creatinine Est GFR ( Amer) Est GFR (Non-Af Amer) POC Glucose (mg/dL) 151 H 190 H Random Glucose Calcium Phosphorus Magnesium Total Bilirubin AST ALT Alkaline Phosphatase Total Protein Albumin Globulin Albumin/Globulin Ratio Arterial Blood Potassium 3.7 10/01/16 10/01/16 05:53 06:40 WBC 10.8 RBC 4.49 Hgb 13.6 Hct 41.1 MCV 91.4 MCH 30.2 MCHC 33.1 RDW 14.5 Plt Count 205 MPV 10.0 Neut % (Auto) 94.5 H Lymph % (Auto) 1.7 L [place] % (Auto) 3.0 Eos % (Auto) 0.1 Baso % (Auto) 0.7 Neut # 10.2 H Lymph # 0.2 L [place] # 0.3 Eos # 0.0 Baso # 0.1 Neutrophils % (Manual) 97 H Band Neutrophils % 1 Lymphocytes % (Manual) 1 L Monocytes % (Manual) 1 Platelet Estimate Normal RBC Morphology Normal PT 11.6 INR 1.0 APTT 23 Puncture Site pCO2 pO2 HCO3 ABG pH ABG Total CO2 ABG O2 Saturation ABG Base Excess Fish Test ABG Potassium A-a O2 Difference Respiratory Index Sodium 144 Chloride 106 Glucose Lactate Mechanical Rate FiO2 Tidal Volume PEEP Potassium 3.9 Carbon Dioxide 24 Anion Gap 18 BUN 53 H Creatinine 1.2 Est GFR ( Amer) 52 Est GFR (Non-Af Amer) 43 POC Glucose (mg/dL) 221 H Random Glucose 167 H Calcium 7.8 L Phosphorus 4.0 Magnesium 2.2 Total Bilirubin 0.4 AST 43 H D ALT 39 Alkaline Phosphatase 35 L Total Protein 5.3 L Albumin 2.5 L Globulin 2.8 Albumin/Globulin Ratio 0.9 L Arterial Blood Potassium Fingerstick Blood Sugar Results: 221 Review of Systems - Review of Systems Systems not reviewed;Unavailable: Intubated Critical Care Progress Note - Ventilator Checklist Head of Bed 30 Degrees: Yes - Vent Settings TIDAL VOLUME:: 450 RESP RATE:: 16 FIO2:: 50 PEEP:: 5 PRESSURE SUPPORT:: 0 - Prophylaxis GI Prophylaxis GI: Pepsid - Prophylaxis DVT Prophylaxis DVT: Lovenox Assessment/Plan - Assessment and Plan (Free Text) Assessment: This is an 86 y/o female with a suspected PMH of smoking, COPD, and HTN presenting with respiratory failure and hypercarbic encephalopathy. The patient has repeatedly failed CPAP trial with pressure support in attempt to extubate. The patient will be trialed again today. Rectal tube has been ordered by GI for abdominal distension resolution. Plan: Neuro: Patient awakens to voice and responds to command. Sedation discontinued Denies pain or discomfort 09/23/16 CT Head- Generalized atrophy. Nonspecific white matter changes. Nicotine patch 21mg ordered for tobacco abuse disorder Sedation: Precedex 1mcg/kg/hr Versed 2mg IV q4 PRN Agitation Cardiovascular: Irregularly Irregular rate Normal rhythm HTN Troponin- 0.2400 > 0.2480 > 0.2490 09/24/16 ECHO- LV normal systolic function, normal chamber size, mild/trace triscupid regurg 09/23/16 EKG- sinus tachycardia with PACs, low voltage QRS, possible anteroseptal infarct age undetermined- official read pending Suspect elevated troponin due to demand ischemia Patient refusing cath 300mg Plavix loading dose given 09/25/16 75mg PO daily plavix Cardizem 30mg PO Q6 Lisinopril 20mg po daily Aspirin 81mg po daily Rouvastatin 10mg po hs Hydralazine 10mg IVP q6 PRN SBP >170 Norvasc 10mg PO daily Pulmonary: Solumedrol 40mg IV q12 Duoneb q4 Imagin10/01/16 CXR- No infiltrate. Lines and tubes unchanged. 09/30/16 CXR- No active pulmonary disease. Stable position of tubes. 09/29/16 CXR- Interval improvement in the right lung since the previous exam. 09/28/16 CXR- Interval worsening of heterogeneous opacities at the right lower lung since the previous exam. Appropriate position of the ETT and NG tube. 09/27/16 CXR- ET Tube proximal to the vicente. OG tube distal to diaphragm. Hazy bibasilar atelectasis. 09/26/16 CXR- Lines and tubes in stable position. Biapical pleural thickening with upper lobe granulomatous changes. Mild venous congestion. Chronic interstitial lung markings. Bibasilar airspace opacities 09/26/16 CT Chest- Small pleural effusions in atelectasis likely compressive bilaterally. Otherwise no significant pulmonary abnormalities. Underlying COPD and evidence of lower airway disease. Satisfactory position of support apparatus 09/25/16 CXR- ET tube in good position- official read pending 09/24/16 CXR- mild venous congestion 09/23/16 CXR- Probable Mach artifact with linear lucency in the left mid susie thorax. Mild venous congestion. Elevated right hemidiaphragm. Right hilar prominence. Endotracheal tube extending into the mid thoracic trachea. NG tube extending into the stomach. 09/23/16 CXR- Biapical pleural thickening with upper lobe granulomatous changes. Some airspace opacification at the right lung apex and right hilar region. Scattered nodularity in both lungs most predominant at the lung bases. Increased markings at the lung bases which may represent some patchy atelectasis. Ventilator settings: PRVC Rate 16, PEEP 5, FiO2 50%, TV 450mL AB10/01/16 pH 7.38, CO2 41, O2 86, HCO3 24.3 09/30/16 pH 7.37, CO2 42, O2 97, HCO3 24.0 09/29/16 pH 7.36, CO2 44, O2 92, HCO3 24.3 09/28/16 pH 7.37, CO2 43, O2 85, HCO3 24.4 09/27/16 pH 7.27, CO2 45, O2 87, HCO3 20.1 09/26/16 (11:45) pH 7.24, CO2 57, O2 65, HCO3 21.8 09/26/16 (05:09) pH 7.28, CO2 50, O2 85, HCO3 22 09/25/16 pH 7.28, CO2 53, O2 113, HCO3 23 09/24/16 pH 7.32, CO2 54, O2 352, HCO3 25.4 09/23/16 O2 345 09/23/16 pH 7.22, CO2 80, O2 377, HCO3 26.9 GI: Protonix 40mg IV daily Rectal Tube placed GI Consult- Dr. Ayala- Colonic ileus. Now passing stool. REC: F/U KUB Gen Surg Consult- Dr. Jimenez- no acute surgical intervention at this time Lactulose 20mg po HS 10/01/16 Abd XR- Mild dilatation of the transverse and ascending colon. No evidence of small bowel obstruction. No masses or abnormal intra-abdominal calcifications. Nasogastric tube tip in left upper quadrant of abdomen. No definite free intraperitoneal air. 09/29/16 CT ABd/Pelv- 1. Cholelithiasis without CT evidence for acute cholecystitis. 2. Colonic distention with air-fluid levels which may represent ileus or pseudo obstruction, no definite evidence of mass or colitis. 3. Mild sigmoid diverticulosis without CT evidence for acute diverticulitis. 4. Several large simple cysts in the left kidney. Nonvisualization of the right kidney. 5. Mild ascites and moderate bilateral pleural effusions. 09/29/16 Abd XR- Moderately dilated bowel loops at the mid to upper abdomen right more than left. If clinically warranted further assessment by CT is suggested. Hematology: No leukocytosis Hgb/Hct stable Bandemia improving 14 > 6 > 8 > 1 > 2 Endocrine: maintain euglycemia HbA1c- 5.9 IVF- NS @ 100ml/hr Renal: Actue rise in BUN/Cr: improving - continue IVF Hypokalemia- resolved Hypomagnesemia- resolved ID: No leukocytosis U/A negative Blood Cx negative Day 9 Rocephin 2g IV daily- start 09/23/16 Day 8 Azithromycin 500mg IV daily- start 09/24/16 : None MSK: None GI Prophylaxis- pepcid 20mg po daily DVT Prophylaxis- lovenox 40mg sc daily Tommie Levy PGY1 - Date & Time Date: 10/01/16 Time: 13:31 <Kendrick Yo - Last Filed: 10/01/16 17:52> CCU Objective - Vital Signs / Intake & Output Vital Signs (Last 4 hours): Vital Signs Temp Pulse Resp BP Pulse Ox 10/01/16 16:00 98.1 F 71 21 128/62 97 10/01/16 15:00 72 19 136/68 96 10/01/16 14:00 71 21 129/64 95 Intake and Output (Last 8hrs): Intake & Output 10/01/16 10/01/16 10/01/16 06:59 14:59 22:59 Intake Total 427 215.3 51.2 Output Total 280 Balance 147 215.3 51.2 Weight 79 lb Intake: Intake, IV Amount 277 215.3 51.2 Right Forearm 177 215.3 51.2 left wrist 100 Other 150 Output: Urine 280 Urethral (Antony) 280 - Medications Active Medications: Active Medications Generic Name Dose Route Start Last Admin Trade Name Freq PRN Reason Stop Dose Admin Albuterol/Ipratropium 3 ml 09/30/16 12:00 10/01/16 15:34 Duoneb 3 Mg/0.5 Mg (3 Ml) Ud INH 3 ml RQ4 JUVENAL Administration Amlodipine Besylate 10 mg 09/29/16 10:00 10/01/16 10:21 Norvasc PO Not Given DAILY JUVENAL Aspirin 81 mg 09/24/16 18:30 10/01/16 10:21 Aspirin Chewable PO Not Given DAILY JUVENAL Clopidogrel Bisulfate 75 mg 09/26/16 10:00 10/01/16 10:20 Plavix PO Not Given DAILY JUVENAL Diltiazem HCl 30 mg 09/26/16 22:15 10/01/16 17:11 Cardizem PO 30 mg Q6H JUVENAL Administration Enoxaparin Sodium 40 mg 09/26/16 13:00 10/01/16 10:21 Lovenox SC 40 mg DAILY JUVENAL Administration Famotidine 20 mg 09/29/16 10:00 10/01/16 10:21 Pepcid PO Not Given DAILY JUVENAL Hydralazine HCl 10 mg 09/29/16 19:58 09/29/16 20:30 Apresoline IVP 10 mg Q6H PRN Administration Other Ceftriaxone Sodium 2 gm/ 100 mls @ 100 mls/hr 09/23/16 23:30 09/30/16 23:51 Sodium Chloride IVPB 100 mls/hr Q24H JUVENAL Administration Azithromycin 500 mg/ Sodium 250 mls @ 250 mls/hr 09/23/16 22:15 09/30/16 21:38 Chloride IVPB 250 mls/hr Q24H JUVENAL Administration Dexmedetomidine HCl 400 mcg/ 100 mls @ 21.9 mls/hr 10/01/16 05:06 10/01/16 17: 07 Sodium Chloride IVPB 27.37 mls/hr TITR PRN Administration Agitation Protocol 1.2 MCG/KG/HR Insulin Human Regular 0 unit 09/27/16 06:00 10/01/16 17:17 Novolin R SC Not Given Q6 [facility] Protocol Lactulose 20 gm 09/29/16 22:00 09/30/16 21:37 Enulose PO 20 gm HS JUVENAL Administration Lisinopril 20 mg 09/29/16 09:54 10/01/16 10:20 Zestril NG Not Given DAILY JUVENAL Methylprednisolone 40 mg 09/29/16 10:00 10/01/16 11:00 Solu-Medrol IV 40 mg Q12 JUVENAL Administration Midazolam HCl 2 mg 09/26/16 09:26 10/01/16 17:04 Versed Inj IVP 2 mg Q4H PRN Administration Agitation Nicotine 1 patch 09/25/16 10:00 10/01/16 10:23 Nicoderm Cq TD 1 patch DAILY JUVENAL Administration Rosuvastatin Calcium 10 mg 09/23/16 22:00 09/30/16 21:38 Crestor PO 10 mg HS JUVENAL Administration - Patient Studies Lab Studies: Lab Studies 10/01/16 10/01/16 10/01/16 Range/Units 17:15 12:15 06:40 WBC 10.8 (4.8-10.8) K/uL RBC 4.49 (3.80-5.20) Mil/uL Hgb 13.6 (11.0-16.0) g/dL Hct 41.1 (34.0-47.0) % MCV 91.4 (81.0-99.0) fL MCH 30.2 (27.0-31.0) pg MCHC 33.1 (33.0-37.0) g/dL RDW 14.5 (11.5-14.5) % Plt Count 205 (130-400) K/uL MPV 10.0 (7.2-11.7) fL Neut % (Auto) 94.5 H (50.0-75.0) % Lymph % (Auto) 1.7 L (20.0-40.0) % [place] % (Auto) 3.0 (0.0-10.0) % Eos % (Auto) 0.1 (0.0-4.0) % Baso % (Auto) 0.7 (0.0-2.0) % Neut # 10.2 H (1.8-7.0) K/uL Lymph # 0.2 L (1.0-4.3) K/uL [place] # 0.3 (0.0-0.8) K/uL Eos # 0.0 (0.0-0.7) K/uL Baso # 0.1 (0.0-0.2) K/uL Neutrophils % (Manual) 97 H (50-75) % Band Neutrophils % 1 (0-2) % Lymphocytes % (Manual) 1 L (20-40) % Monocytes % (Manual) 1 (0-10) % Platelet Estimate Normal (NORMAL) RBC Morphology Normal PT 11.6 (9.7-12.2) SECONDS INR 1.0 APTT 23 (21-34) SECONDS Puncture Site pCO2 (35-45) mm/Hg pO2 (80-100) mm/Hg HCO3 (21-28) mmol/L ABG pH (7.35-7.45) ABG Total CO2 (22-28) mmol/L ABG O2 Saturation (95-98) % ABG Base Excess (-2.0-3.0) mmol/L Fish Test ABG Potassium (3.6-5.2) mmol/L A-a O2 Difference mm/Hg Respiratory Index Glucose (65-105) mg/dl Lactate (0.7-2.1) mmol/L Mechanical Rate FiO2 % Tidal Volume PEEP Sodium 144 (132-148) mmol/L Potassium 3.9 (3.6-5.2) mmol/L Chloride 106 (98-107) mmol/L Carbon Dioxide 24 (22-30) mmol/L Anion Gap 18 (10-20) BUN 53 H (7-17) mg/dL Creatinine 1.2 (0.7-1.2) MG/DL Est GFR ( Amer) 52 Est GFR (Non-Af Amer) 43 POC Glucose (mg/dL) 126 H 132 H (65-110) mg/dL Random Glucose 167 H (65-105) mg/dL Calcium 7.8 L (8.6-10.4) mg/dl Phosphorus 4.0 (2.5-4.5) mg/dL Magnesium 2.2 (1.6-2.3) mg/dL Total Bilirubin 0.4 (0.2-1.3) mg/dL AST 43 H D (14-36) U/L ALT 39 (9-52) U/L Alkaline Phosphatase 35 L (38-126) U/L Total Protein 5.3 L (6.3-8.3) g/dL Albumin 2.5 L (3.5-5.0) g/dL Globulin 2.8 (2.2-3.9) gm/dL Albumin/Globulin Ratio 0.9 L (1.0-2.1) Arterial Blood Potassium (3.6-5.2) mmol/L 10/01/16 10/01/16 09/30/16 Range/Units 05:53 05:21 23:59 WBC (4.8-10.8) K/uL RBC (3.80-5.20) Mil/uL Hgb (11.0-16.0) g/dL Hct (34.0-47.0) % MCV (81.0-99.0) fL MCH (27.0-31.0) pg MCHC (33.0-37.0) g/dL RDW (11.5-14.5) % Plt Count (130-400) K/uL MPV (7.2-11.7) fL Neut % (Auto) (50.0-75.0) % Lymph % (Auto) (20.0-40.0) % [place] % (Auto) (0.0-10.0) % Eos % (Auto) (0.0-4.0) % Baso % (Auto) (0.0-2.0) % Neut # (1.8-7.0) K/uL Lymph # (1.0-4.3) K/uL [place] # (0.0-0.8) K/uL Eos # (0.0-0.7) K/uL Baso # (0.0-0.2) K/uL Neutrophils % (Manual) (50-75) % Band Neutrophils % (0-2) % Lymphocytes % (Manual) (20-40) % Monocytes % (Manual) (0-10) % Platelet Estimate (NORMAL) RBC Morphology PT (9.7-12.2) SECONDS INR APTT (21-34) SECONDS Puncture Site Rr pCO2 41 (35-45) mm/Hg pO2 86 (80-100) mm/Hg HCO3 24.3 (21-28) mmol/L ABG pH 7.38 (7.35-7.45) ABG Total CO2 25.6 (22-28) mmol/L ABG O2 Saturation 98.6 H (95-98) % ABG Base Excess -0.8 (-2.0-3.0) mmol/L Fish Test Pos ABG Potassium 3.7 (3.6-5.2) mmol/L A-a O2 Difference 219.0 mm/Hg Respiratory Index 2.5 Glucose 176 H (65-105) mg/dl Lactate 0.7 (0.7-2.1) mmol/L Mechanical Rate 16 FiO2 50.0 % Tidal Volume 450 PEEP 5 Sodium 143.0 (132-148) mmol/L Potassium (3.6-5.2) mmol/L Chloride 114.0 H (98-107) mmol/L Carbon Dioxide (22-30) mmol/L Anion Gap (10-20) BUN (7-17) mg/dL Creatinine (0.7-1.2) MG/DL Est GFR ( Amer) Est GFR (Non-Af Amer) POC Glucose (mg/dL) 221 H 190 H (65-110) mg/dL Random Glucose (65-105) mg/dL Calcium (8.6-10.4) mg/dl Phosphorus (2.5-4.5) mg/dL Magnesium (1.6-2.3) mg/dL Total Bilirubin (0.2-1.3) mg/dL AST (14-36) U/L ALT (9-52) U/L Alkaline Phosphatase (38-126) U/L Total Protein (6.3-8.3) g/dL Albumin (3.5-5.0) g/dL Globulin (2.2-3.9) gm/dL Albumin/Globulin Ratio (1.0-2.1) Arterial Blood Potassium 3.7 (3.6-5.2) mmol/L Laboratory Results - last 24 hr 09/30/16 10/01/16 10/01/16 23:59 05:21 05:53 WBC RBC Hgb Hct MCV MCH MCHC RDW Plt Count MPV Neut % (Auto) Lymph % (Auto) [place] % (Auto) Eos % (Auto) Baso % (Auto) Neut # Lymph # [place] # Eos # Baso # Neutrophils % (Manual) Band Neutrophils % Lymphocytes % (Manual) Monocytes % (Manual) Platelet Estimate RBC Morphology PT INR APTT Puncture Site Rr pCO2 41 pO2 86 HCO3 24.3 ABG pH 7.38 ABG Total CO2 25.6 ABG O2 Saturation 98.6 H ABG Base Excess -0.8 Fish Test Pos ABG Potassium 3.7 A-a O2 Difference 219.0 Respiratory Index 2.5 Sodium 143.0 Chloride 114.0 H Glucose 176 H Lactate 0.7 Mechanical Rate 16 FiO2 50.0 Tidal Volume 450 PEEP 5 Potassium Carbon Dioxide Anion Gap BUN Creatinine Est GFR ( Amer) Est GFR (Non-Af Amer) POC Glucose (mg/dL) 190 H 221 H Random Glucose Calcium Phosphorus Magnesium Total Bilirubin AST ALT Alkaline Phosphatase Total Protein Albumin Globulin Albumin/Globulin Ratio Arterial Blood Potassium 3.7 10/01/16 10/01/16 10/01/16 06:40 12:15 17:15 WBC 10.8 RBC 4.49 Hgb 13.6 Hct 41.1 MCV 91.4 MCH 30.2 MCHC 33.1 RDW 14.5 Plt Count 205 MPV 10.0 Neut % (Auto) 94.5 H Lymph % (Auto) 1.7 L [place] % (Auto) 3.0 Eos % (Auto) 0.1 Baso % (Auto) 0.7 Neut # 10.2 H Lymph # 0.2 L [place] # 0.3 Eos # 0.0 Baso # 0.1 Neutrophils % (Manual) 97 H Band Neutrophils % 1 Lymphocytes % (Manual) 1 L Monocytes % (Manual) 1 Platelet Estimate Normal RBC Morphology Normal PT 11.6 INR 1.0 APTT 23 Puncture Site pCO2 pO2 HCO3 ABG pH ABG Total CO2 ABG O2 Saturation ABG Base Excess Fish Test ABG Potassium A-a O2 Difference Respiratory Index Sodium 144 Chloride 106 Glucose Lactate Mechanical Rate FiO2 Tidal Volume PEEP Potassium 3.9 Carbon Dioxide 24 Anion Gap 18 BUN 53 H Creatinine 1.2 Est GFR ( Amer) 52 Est GFR (Non-Af Amer) 43 POC Glucose (mg/dL) 132 H 126 H Random Glucose 167 H Calcium 7.8 L Phosphorus 4.0 Magnesium 2.2 Total Bilirubin 0.4 AST 43 H D ALT 39 Alkaline Phosphatase 35 L Total Protein 5.3 L Albumin 2.5 L Globulin 2.8 Albumin/Globulin Ratio 0.9 L Arterial Blood Potassium Assessment/Plan (1) Acute respiratory failure with hypoxia and hypercarbia Current Visit: Yes Status: Acute (2) Acute CT Current Visit: Yes Status: Acute Attending/Attestation - Attestation I have personally seen and examined this patient.: Yes I have fully participated in the care of the patient.: Yes I have reviewed all pertinent clinical information: Yes Notes (Text): 10/01/16 17:51 Patient seen and examined in the intensive care unit. Case discussed with house staff in the morning rounds. Lab data and chest x-ray reviewed. Remains intubated on ventilatory support tolerated CPAP for a few hours Seen by [facility] Surgery for distended bowels Continue nebulizer treatment and steroids Patient had rectal tube placed
[2016-10-01] MEDS: Midazolam 2 MG/2 ML VIAL IVP PRN (17:04)
[2016-10-01] MEDS: Azithromycin 500 MG in Sodium Chloride 0.9% 250 ML IVPB SCH (21:15)
[2016-10-01] MEDS: cefTRIAXone 2 GM in Sodium Chloride 0.9% 100 ML IVPB SCH (22:47)
[2016-10-02] MEDS: Albuterol-Ipratrop 3 mg / 0.5 (3 ml) UD INH SCH ×6 (00:17→20:32)
--- NOTE | 2016-10-02 01:03 | CP.PCM.PN ---
Subjective - Date & Time of Evaluation Date of Evaluation: 10/01/16 Time of Evaluation: 12:40 - Subjective Subjective: Patient was seen and examined at bedside. No acute distress on ventilator. No acute events overnight. Nursing staff reports no issues. Patient remains intubated (TV 450mL, FiO2 50%, Rate 16, PEEP 5) with a peak pressure of [id number] on PRVC. The patient has complaint of abdominal pain this morning. Her stomach appears grossly distended. GI and general surgery have been consulted to see the patient. The nursing staff reports multiple episodes of diarrhea without formed stool elements. Today, the patient will again be trialed on CPAP with pressure support for possible extubation. Objective - Vital Signs/Intake and Output Vital Signs (last 24 hours): Temp Pulse Resp BP Pulse Ox 98 F 67 16 134/71 96 10/02/16 00:00 10/02/16 00:00 10/02/16 00:00 10/02/16 00:00 10/02/16 00:00 Intake and Output: 10/01/16 10/02/16 18:59 06:59 Intake Total 471.3 718.9 Output Total 790 360 Balance -318.7 358.9 - Medications Medications: Current Medications Albuterol/Ipratropium (Duoneb 3 Mg/0.5 Mg (3 Ml) Ud) 3 ml INH RQ4 [facility] Last Admin: 10/02/16 00:17 Dose: 3 ml Amlodipine Besylate (Norvasc) 10 mg PO DAILY [facility] Last Admin: 10/01/16 10:21 Dose: Not Given Aspirin (Aspirin Chewable) 81 mg PO DAILY [facility] Last Admin: 10/01/16 10:21 Dose: Not Given Clopidogrel Bisulfate (Plavix) 75 mg PO DAILY [facility] Last Admin: 10/01/16 10:20 Dose: Not Given Diltiazem HCl (Cardizem) 30 mg PO Q6H [facility] Last Admin: 10/01/16 21:17 Dose: 30 mg Enoxaparin Sodium (Lovenox) 40 mg SC DAILY [facility] Last Admin: 10/01/16 10:21 Dose: 40 mg Famotidine (Pepcid) 20 mg PO DAILY [facility] Last Admin: 10/01/16 10:21 Dose: Not Given Hydralazine HCl (Apresoline) 10 mg IVP Q6H PRN PRN Reason: Other Last Admin: 09/29/16 20:30 Dose: 10 mg Ceftriaxone Sodium 2 gm/ (Sodium Chloride) 100 mls @ 100 mls/hr IVPB Q24H [facility] Last Admin: 10/01/16 22:47 Dose: 100 mls/hr Azithromycin 500 mg/ Sodium (Chloride) 250 mls @ 250 mls/hr IVPB Q24H [facility] Last Admin: 10/01/16 21:15 Dose: 250 mls/hr Dexmedetomidine HCl 400 mcg/ (Sodium Chloride) 100 mls @ 21.9 mls/hr IVPB TITR PRN; Protocol; 1.2 MCG/KG/HR PRN Reason: Agitation Last Titration: 10/01/16 22:30 Dose: 1.6 mcg/kg/hr Insulin Human Regular (Novolin R) 0 unit SC Q6 [facility] PRN Reason: Protocol Last Admin: 10/01/16 17:17 Dose: Not Given Lactulose (Enulose) 20 gm PO [facility] Last Admin: 10/01/16 21:12 Dose: 20 gm Lisinopril (Zestril) 20 mg NG DAILY [facility] Last Admin: 10/01/16 10:20 Dose: Not Given Methylprednisolone (Solu-Medrol) 40 mg IV Q12 [facility] Last Admin: 10/01/16 22:04 Dose: 40 mg Midazolam HCl (Versed Inj) 2 mg IVP Q4H PRN PRN Reason: Agitation Last Admin: 10/01/16 17:04 Dose: 2 mg Nicotine (Nicoderm Cq) 1 patch TD DAILY [facility] Last Admin: 10/01/16 10:23 Dose: 1 patch Rosuvastatin Calcium (Crestor) 10 mg PO [facility] Last Admin: 10/01/16 21:13 Dose: 10 mg - Labs Labs: 10/01/16 06:40 10/01/16 06:40 PT 11.6 SECONDS (9.7-12.2) 10/01/16 06:40 INR 1.0 10/01/16 06:40 APTT 23 SECONDS (21-34) 10/01/16 06:40 - Constitutional Appears: No Acute Distress, Chronically Ill - Eye Exam Eye Exam: EOMI, Normal appearance, PERRL Pupil Exam: NORMAL ACCOMODATION, PERRL - ENT Exam ENT Exam: Mucous Membranes Moist - Respiratory Exam Respiratory Exam: Decreased Breath Sounds, Wheezes - Cardiovascular Exam Cardiovascular Exam: REGULAR RHYTHM, +S1, +S2. absent: Murmur - GI/Abdominal Exam GI & Abdominal Exam: Distended, Tenderness, Hypoactive Bowel Sounds - Neurological Exam Neurological Exam: Abnormal Gait, Altered Assessment and Plan (1) Acute respiratory failure with hypoxia and hypercarbia Status: Resolved (2) Altered mental status Status: Resolved (3) Acute AL Status: Acute - Assessment and Plan (Free Text) Assessment: - Assessment and Plan (Free Text) Assessment: This is an 86 y/o female with a suspected PMH of smoking, COPD, and HTN presenting with respiratory failure and hypercarbic encephalopathy. The patient has repeatedly failed CPAP trial with pressure support in attempt to extubate. The patient will be trialed again today. Rectal tube has been ordered by GI for abdominal distension resolution. Plan: Neuro: Patient awakens to voice and responds to command. Sedation discontinued Denies pain or discomfort 09/23/16 CT Head- Generalized atrophy. Nonspecific white matter changes. Nicotine patch 21mg ordered for tobacco abuse disorder Sedation: Precedex 1mcg/kg/hr Versed 2mg IV q4 PRN Agitation Cardiovascular: Irregularly Irregular rate Normal rhythm HTN Troponin- 0.2400 > 0.2480 > 0.2490 09/24/16 ECHO- LV normal systolic function, normal chamber size, mild/trace triscupid regurg 09/23/16 EKG- sinus tachycardia with PACs, low voltage QRS, possible anteroseptal infarct age undetermined- official read pending Suspect elevated troponin due to demand ischemia Patient refusing cath 300mg Plavix loading dose given 09/25/16 75mg PO daily plavix Cardizem 30mg PO Q6 Lisinopril 20mg po daily Aspirin 81mg po daily Rouvastatin 10mg po hs Hydralazine 10mg IVP q6 PRN SBP >170 Norvasc 10mg PO daily Pulmonary: Solumedrol 40mg IV q12 Duoneb q4 Imagin10/01/16 CXR- No infiltrate. Lines and tubes unchanged. 09/30/16 CXR- No active pulmonary disease. Stable position of tubes. 09/29/16 CXR- Interval improvement in the right lung since the previous exam. 09/28/16 CXR- Interval worsening of heterogeneous opacities at the right lower lung since the previous exam. Appropriate position of the ETT and NG tube. 09/27/16 CXR- ET Tube proximal to the vicente. OG tube distal to diaphragm. Hazy bibasilar atelectasis. 09/26/16 CXR- Lines and tubes in stable position. Biapical pleural thickening with upper lobe granulomatous changes. Mild venous congestion. Chronic interstitial lung markings. Bibasilar airspace opacities 09/26/16 CT Chest- Small pleural effusions in atelectasis likely compressive bilaterally. Otherwise no significant pulmonary abnormalities. Underlying COPD and evidence of lower airway disease. Satisfactory position of support apparatus 09/25/16 CXR- ET tube in good position- official read pending 09/24/16 CXR- mild venous congestion 09/23/16 CXR- Probable Mach artifact with linear lucency in the left mid susie thorax. Mild venous congestion. Elevated right hemidiaphragm. Right hilar prominence. Endotracheal tube extending into the mid thoracic trachea. NG tube extending into the stomach. 09/23/16 CXR- Biapical pleural thickening with upper lobe granulomatous changes. Some airspace opacification at the right lung apex and right hilar region. Scattered nodularity in both lungs most predominant at the lung bases. Increased markings at the lung bases which may represent some patchy atelectasis. Ventilator settings: PRVC Rate 16, PEEP 5, FiO2 50%, TV 450mL AB10/01/16 pH 7.38, CO2 41, O2 86, HCO3 24.3 09/30/16 pH 7.37, CO2 42, O2 97, HCO3 24.0 09/29/16 pH 7.36, CO2 44, O2 92, HCO3 24.3 09/28/16 pH 7.37, CO2 43, O2 85, HCO3 24.4 09/27/16 pH 7.27, CO2 45, O2 87, HCO3 20.1 09/26/16 (11:45) pH 7.24, CO2 57, O2 65, HCO3 21.8 09/26/16 (05:09) pH 7.28, CO2 50, O2 85, HCO3 22 09/25/16 pH 7.28, CO2 53, O2 113, HCO3 23 09/24/16 pH 7.32, CO2 54, O2 352, HCO3 25.4 09/23/16 O2 345 09/23/16 pH 7.22, CO2 80, O2 377, HCO3 26.9 GI: Protonix 40mg IV daily Rectal Tube placed GI Consult- Dr. Ayala- Colonic ileus. Now passing stool. REC: F/U KUB Gen Surg Consult- Dr. Jimenez- no acute surgical intervention at this time Lactulose 20mg po HS 10/01/16 Abd XR- Mild dilatation of the transverse and ascending colon. No evidence of small bowel obstruction. No masses or abnormal intra-abdominal calcifications. Nasogastric tube tip in left upper quadrant of abdomen. No definite free intraperitoneal air. 09/29/16 CT ABd/Pelv- 1. Cholelithiasis without CT evidence for acute cholecystitis. 2. Colonic distention with air-fluid levels which may represent ileus or pseudo obstruction, no definite evidence of mass or colitis. 3. Mild sigmoid diverticulosis without CT evidence for acute diverticulitis. 4. Several large simple cysts in the left kidney. Nonvisualization of the right kidney. 5. Mild ascites and moderate bilateral pleural effusions. 09/29/16 Abd XR- Moderately dilated bowel loops at the mid to upper abdomen right more than left. If clinically warranted further assessment by CT is suggested. Hematology: No leukocytosis Hgb/Hct stable Bandemia improving 14 > 6 > 8 > 1 > 2 Endocrine: maintain euglycemia HbA1c- 5.9 IVF- NS @ 100ml/hr Renal: Actue rise in BUN/Cr: improving - continue IVF Hypokalemia- resolved Hypomagnesemia- resolved ID: No leukocytosis U/A negative Blood Cx negative Day 9 Rocephin 2g IV daily- start 09/23/16 Day 8 Azithromycin 500mg IV daily- start 09/24/16 : None MSK: None GI Prophylaxis- pepcid 20mg po daily DVT Prophylaxis- lovenox 40mg sc daily
[2016-10-02] MEDS: Dexmedetomidine Hydrochloride 400 MCG in Sodium Chloride 0.9% 96 ML IVPB PRN ×2 (01:09→04:43)
[2016-10-02] MEDS: (Novolin R) Insulin Human Regular 100 units/ml vial SC SCH ×4 (01:10→18:05)
[2016-10-02] MEDS: Midazolam 2 MG/2 ML VIAL IVP PRN (02:00)
[2016-10-02 05:45] LABS: ABG ALLEN TEST POS; ABG MECHANICAL RATE 16; ATERIAL BLOOD GAS PEEP 5; DRAW SITE RRAD
[2016-10-02 06:33] LABS: INR 1.1
[2016-10-02 06:34] LABS: POTASSIUM 3.9 mmol/L (3.6-5.2)
[2016-10-02 06:35] LABS: BASO % 0.4 % (0.0-2.0); HEMATOCRIT 41.6 % (34.0-47.0); LYMPH # 0.3 K/uL (1.0-4.3); LYMPH % 2.4 % (20.0-40.0); MEAN CELL VOLUME 90.6 fL (81.0-99.0); MEAN CORPUSCULAR HEMOGLOBIN 29.8 pg (27.0-31.0); MEAN CORPUSCULAR HGB CONC 32.8 g/dL (33.0-37.0); MEAN PLATELET VOLUME 9.6 fL (7.2-11.7); MONO # 0.2 K/uL (0.0-0.8); MONO % 1.8 % (0.0-10.0); PLATELET COUNT 183 K/uL (130-400); RED CELL DISTRIBUTION WIDTH 14.9 % (11.5-14.5); WHITE BLOOD COUNT 10.5 K/uL (4.8-10.8)
[2016-10-02 06:36] LABS: BILIRUBIN,TOTAL 0.4 mg/dL (0.2-1.3)
[2016-10-02 06:37] LABS: CALCIUM 7.6 mg/dl (8.6-10.4); MAGNESIUM 2.1 mg/dL (1.6-2.3); PHOSPHOROUS 3.9 mg/dL (2.5-4.5); TOTAL PROTEIN 5.1 g/dL (6.3-8.3)
--- NOTE | 2016-10-02 08:14 | CP.PCM.PN ---
<Rodger Hunter - Last Filed: 10/02/16 08:11> Subjective - Date & Time of Evaluation Date of Evaluation: 10/02/16 Time of Evaluation: 08:11 - Subjective Subjective: Surgery: Dr. Jimenez Patient remains intubated in ICU. patient awake and alert and is visually anxious about getting ET tube out today. She denies pain to the abdomen unless deeply palpated and at that time pain is located in epigastric region. No acute events noted. Patient had rectal tube placed yesterday however was subsequently removed last night, no output from tube was noted. Objective - Vital Signs/Intake and Output Vital Signs (last 24 hours): Temp Pulse Resp BP Pulse Ox 98.2 F 70 17 152/70 H 95 10/02/16 04:00 10/02/16 06:00 10/02/16 06:00 10/02/16 06:00 10/02/16 06:00 Intake and Output: 10/02/16 10/02/16 06:59 18:59 Intake Total 985.0 Output Total 640 Balance 345.0 - Medications Medications: Current Medications Albuterol/Ipratropium (Duoneb 3 Mg/0.5 Mg (3 Ml) Ud) 3 ml INH RQ4 [facility] Last Admin: 10/02/16 07:25 Dose: 3 ml Amlodipine Besylate (Norvasc) 10 mg PO DAILY [facility] Last Admin: 10/01/16 10:21 Dose: Not Given Aspirin (Aspirin Chewable) 81 mg PO DAILY [facility] Last Admin: 10/01/16 10:21 Dose: Not Given Clopidogrel Bisulfate (Plavix) 75 mg PO DAILY [facility] Last Admin: 10/01/16 10:20 Dose: Not Given Diltiazem HCl (Cardizem) 30 mg PO Q6H [facility] Last Admin: 10/02/16 04:41 Dose: 30 mg Enoxaparin Sodium (Lovenox) 40 mg SC DAILY [facility] Last Admin: 10/01/16 10:21 Dose: 40 mg Famotidine (Pepcid) 20 mg PO DAILY [facility] Last Admin: 10/01/16 10:21 Dose: Not Given Hydralazine HCl (Apresoline) 10 mg IVP Q6H PRN PRN Reason: Other Last Admin: 09/29/16 20:30 Dose: 10 mg Ceftriaxone Sodium 2 gm/ (Sodium Chloride) 100 mls @ 100 mls/hr IVPB Q24H [facility] Last Admin: 10/01/16 22:47 Dose: 100 mls/hr Azithromycin 500 mg/ Sodium (Chloride) 250 mls @ 250 mls/hr IVPB Q24H [facility] Last Admin: 10/01/16 21:15 Dose: 250 mls/hr Dexmedetomidine HCl 400 mcg/ (Sodium Chloride) 100 mls @ 21.9 mls/hr IVPB TITR PRN; Protocol; 1.2 MCG/KG/HR PRN Reason: Agitation Last Admin: 10/02/16 04:43 Dose: 31.02 mls/hr Insulin Human Regular (Novolin R) 0 unit SC Q6 [facility] PRN Reason: Protocol Last Admin: 10/02/16 05:44 Dose: 2 unit Lactulose (Enulose) 20 gm PO [facility] Last Admin: 10/01/16 21:12 Dose: 20 gm Lisinopril (Zestril) 20 mg NG DAILY [facility] Last Admin: 10/01/16 10:20 Dose: Not Given Methylprednisolone (Solu-Medrol) 40 mg IV Q12 [facility] Last Admin: 10/01/16 22:04 Dose: 40 mg Midazolam HCl (Versed Inj) 2 mg IVP Q4H PRN PRN Reason: Agitation Last Admin: 10/02/16 02:00 Dose: 2 mg Nicotine (Nicoderm Cq) 1 patch TD DAILY [facility] Last Admin: 10/01/16 10:23 Dose: 1 patch Rosuvastatin Calcium (Crestor) 10 mg PO [facility] Last Admin: 10/01/16 21:13 Dose: 10 mg - Labs Labs: 10/02/16 06:12 10/02/16 06:12 PT 11.9 SECONDS (9.7-12.2) 10/02/16 06:12 INR 1.1 10/02/16 06:12 APTT 28 SECONDS (21-34) D 10/02/16 06:12 - Constitutional Appears: Non-toxic, Chronically Ill - Head Exam Head Exam: ATRAUMATIC, NORMOCEPHALIC - Eye Exam Eye Exam: EOMI - ENT Exam ENT Exam: Mucous Membranes Dry Additional comments: ETT and OGT inplace - Respiratory Exam Respiratory Exam: NORMAL BREATHING PATTERN Additional comments: on Mechanical vent, tolerated CPAP from 8-4 yesterday - Cardiovascular Exam Cardiovascular Exam: REGULAR RHYTHM. absent: Tachycardia - GI/Abdominal Exam GI & Abdominal Exam: Distended, Soft, Tenderness (epigastric mild w/ deep palpation). absent: Guarding, Rigid, Rebound - Neurological Exam Neurological Exam: Alert, Awake - Skin Skin Exam: Dry, Normal Color, Warm Assessment and Plan - Assessment and Plan (Free Text) Assessment: 86 y/o female w/ colonic ileus Plan: -rectal tube removed yesterday, patient w/ small BM last night -would cont enulose -repeat abdominal film today -serial exams -GI recs -f/u C. Diff -no surgical intervention at this time -medical management per ICU team -d/w Dr. Tony WHITAKERopal PGY1 <Jai Jimenez - Last Filed: 10/02/16 18:09> Objective - Vital Signs/Intake and Output Vital Signs (last 24 hours): Temp Pulse Resp BP Pulse Ox 98.2 F 107 H 18 114/59 L 92 L 10/02/16 16:00 10/02/16 18:00 10/02/16 18:00 10/02/16 18:00 10/02/16 18:00 Intake and Output: 10/02/16 10/02/16 06:59 18:59 Intake Total 985.0 135.1 Output Total 640 320 Balance 345.0 -184.9 - Medications Medications: Current Medications Albuterol/Ipratropium (Duoneb 3 Mg/0.5 Mg (3 Ml) Ud) 3 ml INH RQ4 [facility] Last Admin: 10/02/16 16:20 Dose: 3 ml Amlodipine Besylate (Norvasc) 10 mg PO DAILY [facility] Last Admin: 10/02/16 10:29 Dose: 10 mg Aspirin (Aspirin Chewable) 81 mg PO DAILY [facility] Last Admin: 10/02/16 10:30 Dose: 81 mg Budesonide (Pulmicort Respules) 0.5 mg INH RQ12 [facility] Clopidogrel Bisulfate (Plavix) 75 mg PO DAILY [facility] Last Admin: 10/02/16 10:29 Dose: 75 mg Diltiazem HCl (Cardizem) 30 mg PO Q6H [facility] Last Admin: 10/02/16 17:25 Dose: Not Given Enoxaparin Sodium (Lovenox) 40 mg SC DAILY [facility] Last Admin: 10/02/16 10:03 Dose: 40 mg Famotidine (Pepcid) 20 mg PO DAILY [facility] Last Admin: 10/02/16 10:29 Dose: 20 mg Hydralazine HCl (Apresoline) 10 mg IVP Q6H PRN PRN Reason: Other Last Admin: 09/29/16 20:30 Dose: 10 mg Ceftriaxone Sodium 2 gm/ (Sodium Chloride) 100 mls @ 100 mls/hr IVPB Q24H [facility] Last Admin: 10/01/16 22:47 Dose: 100 mls/hr Azithromycin 500 mg/ Sodium (Chloride) 250 mls @ 250 mls/hr IVPB Q24H [facility] Last Admin: 10/01/16 21:15 Dose: 250 mls/hr Dexmedetomidine HCl 400 mcg/ (Sodium Chloride) 100 mls @ 4.13 mls/hr IVPB TITR PRN; Protocol; 0.2 MCG/KG/HR PRN Reason: Agitation Last Admin: 10/02/16 17:14 Dose: 4.13 mls/hr Insulin Human Regular (Novolin R) 0 unit SC Q6 [facility] PRN Reason: Protocol Last Admin: 10/02/16 18:05 Dose: Not Given Lactulose (Enulose) 20 gm PO HS [facility] Last Admin: 10/01/16 21:12 Dose: 20 gm Lisinopril (Zestril) 20 mg NG DAILY [facility] Last Admin: 10/02/16 10:29 Dose: 20 mg Methylprednisolone (Solu-Medrol) 40 mg IV Q12 [facility] Last Admin: 10/02/16 10:30 Dose: 40 mg Nicotine (Nicoderm Cq) 1 patch TD DAILY [facility] Last Admin: 10/02/16 10:05 Dose: 1 patch Rosuvastatin Calcium (Crestor) 10 mg PO HS [facility] Last Admin: 10/01/16 21:13 Dose: 10 mg - Labs Labs: 10/02/16 06:12 10/02/16 06:12 PT 11.9 SECONDS (9.7-12.2) 10/02/16 06:12 INR 1.1 10/02/16 06:12 APTT 28 SECONDS (21-34) D 10/02/16 06:12 Attending/Attestation - Attestation I have personally seen and examined this patient.: Yes I have fully participated in the care of the patient.: Yes I have reviewed all pertinent clinical information, including history, physical exam and plan: Yes Notes (Text): 10/02/16 18:09 Pt was seen and examined at bedside on 10/02/16 Agree with above note and assessment No acute surgical intervention required at present F/U as out pt. C.w current mx
[2016-10-02 08:18] LABS: NEUTROPHIL 95 % (50-75); TOTAL CELLS COUNTED 100
[2016-10-02 08:19] LABS: LARGE PLATELETS PRESENT
[2016-10-02] MEDS: Enoxaparin 40 mg Syringe SC SCH (10:03)
--- NOTE | 2016-10-02 10:28 | CP.PCM.PN ---
Subjective - Date & Time of Evaluation Date of Evaluation: 10/02/16 Time of Evaluation: 10:25 - Subjective Subjective: CC: Follow up ileus In ICU, extubated Discussed with RN- refuses abdominal film, had 2 BMs last night, small. Denies abdominal pain. Insists on going home. Objective - Vital Signs/Intake and Output Vital Signs (last 24 hours): Temp Pulse Resp BP Pulse Ox 97.4 F L 71 25 H 151/80 H 92 L 10/02/16 08:00 10/02/16 09:00 10/02/16 09:00 10/02/16 09:00 10/02/16 09:00 Intake and Output: 10/02/16 10/02/16 06:59 18:59 Intake Total 985.0 31 Output Total 640 90 Balance 345.0 -59 - Medications Medications: Current Medications Albuterol/Ipratropium (Duoneb 3 Mg/0.5 Mg (3 Ml) Ud) 3 ml INH RQ4 [facility] Last Admin: 10/02/16 07:25 Dose: 3 ml Amlodipine Besylate (Norvasc) 10 mg PO DAILY [facility] Last Admin: 10/01/16 10:21 Dose: Not Given Aspirin (Aspirin Chewable) 81 mg PO DAILY [facility] Last Admin: 10/01/16 10:21 Dose: Not Given Budesonide (Pulmicort Respules) 0.5 mg INH RQ12 [facility] Clopidogrel Bisulfate (Plavix) 75 mg PO DAILY [facility] Last Admin: 10/01/16 10:20 Dose: Not Given Diltiazem HCl (Cardizem) 30 mg PO Q6H [facility] Last Admin: 10/02/16 04:41 Dose: 30 mg Enoxaparin Sodium (Lovenox) 40 mg SC DAILY [facility] Last Admin: 10/02/16 10:03 Dose: 40 mg Famotidine (Pepcid) 20 mg PO DAILY [facility] Last Admin: 10/01/16 10:21 Dose: Not Given Hydralazine HCl (Apresoline) 10 mg IVP Q6H PRN PRN Reason: Other Last Admin: 09/29/16 20:30 Dose: 10 mg Ceftriaxone Sodium 2 gm/ (Sodium Chloride) 100 mls @ 100 mls/hr IVPB Q24H [facility] Last Admin: 10/01/16 22:47 Dose: 100 mls/hr Azithromycin 500 mg/ Sodium (Chloride) 250 mls @ 250 mls/hr IVPB Q24H [facility] Last Admin: 10/01/16 21:15 Dose: 250 mls/hr Insulin Human Regular (Novolin R) 0 unit SC Q6 [facility] PRN Reason: Protocol Last Admin: 10/02/16 05:44 Dose: 2 unit Lactulose (Enulose) 20 gm PO HS [facility] Last Admin: 10/01/16 21:12 Dose: 20 gm Lisinopril (Zestril) 20 mg NG DAILY [facility] Last Admin: 10/01/16 10:20 Dose: Not Given Methylprednisolone (Solu-Medrol) 40 mg IV Q12 [facility] Last Admin: 10/01/16 22:04 Dose: 40 mg Nicotine (Nicoderm Cq) 1 patch TD DAILY [facility] Last Admin: 10/02/16 10:05 Dose: 1 patch Rosuvastatin Calcium (Crestor) 10 mg PO HS [facility] Last Admin: 10/01/16 21:13 Dose: 10 mg - Labs Labs: 10/02/16 06:12 10/02/16 06:12 PT 11.9 SECONDS (9.7-12.2) 10/02/16 06:12 INR 1.1 10/02/16 06:12 APTT 28 SECONDS (21-34) D 10/02/16 06:12 - Constitutional Appears: Confused, Chronically Ill - Head Exam Head Exam: NORMOCEPHALIC - Eye Exam Eye Exam: absent: Scleral icterus - ENT Exam Additional comments: OG Tube - Neck Exam Neck Exam: Normal Inspection - Respiratory Exam Respiratory Exam: Decreased Breath Sounds, Prolonged Expiratory Phase - Cardiovascular Exam Cardiovascular Exam: REGULAR RHYTHM - GI/Abdominal Exam GI & Abdominal Exam: Soft, Diminished Bowel Sounds. absent: Distended, Guarding , Rigid, Tenderness, Mass, Rebound Assessment and Plan (1) Respiratory failure Assessment & Plan: Now extubated Management per ICU team and primary care. Status: Acute (2) Abdominal distension Assessment & Plan: Resolved. Denies andominal pain. Small BMs on Lactulose. May have steroid or ICU psychosis, insists she is going home and her family is picking her up today. Rec: Obtain swallow eval in anticipation of solid diet. Lactulose continue. Status: Acute
[2016-10-02] MEDS: MethylPREDNISolone 40 mg Vial IV SCH ×2 (10:30→21:33)
--- NOTE | 2016-10-02 10:42 | RAD ---
HISTORY: ET Tube Eval COMPARISON: 10/01/2016 FINDINGS: LUNGS: No active pulmonary disease. PLEURA: Hazy opacity at left costophrenic angle may reflect small pleural effusion. Right costophrenic angle is clear. No pneumothorax. CARDIOVASCULAR: Endotracheal tube and nasogastric tube are unchanged grossly. Mild congestive change. OSSEOUS STRUCTURES: No significant abnormalities. VISUALIZED UPPER ABDOMEN: Normal. OTHER FINDINGS: None. IMPRESSION: Possible small left pleural effusion. No infiltrate.
--- NOTE | 2016-10-02 14:40 | CP.CCUPN ---
<Fabian Levy - Last Filed: 10/02/16 14:37> CCU Subjective - Physician Review Subjective (Free Text): 09/24/16 13:39 Patient was seen and examined at bedside. No acute distress on ventilator. No acute events overnight. Nursing staff reports no issues. Patient is resting comfortably on the bed, maintained on a propofol drip 10mcg/kg/min. Patient is lethargic but awakens to voice, follows command. Denies any pain or complaints aside from the ventilator. Hypercarbia has improved on todays ABG. 09/25/16 10:20 Patient was seen and examined at bedside. No acute distress on ventilator. No acute events overnight. Nursing staff reports no issues. Patient is resting comfortably on the bed. Patient is on cPAP. Patient is planned for extubation today. Hypercarbia has stabilized. Patient is likely at her baseline. Today, nicotine patch was ordered and a fluid challenge (250cc bolus) due to acute rise in BUN/Cr. 09/26/16 13:51 Patient was seen and examined at bedside. No acute distress on ventilator. No acute events overnight. Patient was trialed on CPAP yesterday [id number]. Patient had poor inspiratory volumes and was placed back on vent. The patient was again tried on CPAP this morning but could not maintain adequate tidal volume. The patient was placed back on the ventilator at an increased rate to decrease her PCO2. Today, the patients respiratory rate was increased to 16. A CT of the Chest was ordered. Feeds were restarted, and lovenox 40mg sc daily was started for dvt prophylaxis. 09/27/16 08:40 Patient was seen and examined at bedside. No acute distress on ventilator. No acute events overnight. Nursing staff reports no issues. Patient remains intubated (TV 450mL, FiO2 50%, Rate 16, PEEP 5) and sedated 0.2mcg/kg/hr on prededex. The patient has bee trialed x2 with CPAP and not tolerated. The patient has continued to have a respiratory acidosis. The patient was tachycardic 5mg of Lopressor was given IV x1 and Cardizem 30mg PO q6 was started. Today, the patient was started on lisinopril for HTN. Hydralazine IV was added PRN for HTN coverage for SBP >170mmHg. The patient was again tried on CPAP 15/ 5 but could not tolerate the transition and thus was put back on PRVC. 09/30/16 12:18 Patient was seen and examined at bedside. No acute distress on ventilator. No acute events overnight. Nursing staff reports no issues. Patient remains intubated (TV 450mL, FiO2 50%, Rate 16, PEEP 5). The patient will be trialed on CPAP 15/5 for possible extubation today. Today, the patient was taken off PRVC and placed on 15/5 CPAP with pressure support for extubation trial. The patient's magnesium was replaced and duonebs reordered q4 juvenal. 10/01/16 13:27 Patient was seen and examined at bedside. No acute distress on ventilator. No acute events overnight. Nursing staff reports no issues. Patient remains intubated (TV 450mL, FiO2 50%, Rate 16, PEEP 5) with a peak pressure of [id number] on PRVC. The patient has complaint of abdominal pain this morning. Her stomach appears grossly distended. GI and general surgery have been consulted to see the patient. The nursing staff reports multiple episodes of diarrhea without formed stool elements. Today, the patient will again be trialed on CPAP with pressure support for possible extubation. 10/02/16 14:37 Patient was seen and examined at bedside. No acute distress. No acute events overnight. Nursing staff reports no issues. Patient remains intubated and will be extubated today. This morning, the patient is agitated with her current intubation status and refused all abdominal imaging studies. Today, the patient was extubated at 8:50AM and has since tolerated breathing on her own well. She is currently sating well on 50% O2 on venti mask. Critical Care Time Spent (in minutes): 90 CCU Objective - Vital Signs / Intake & Output Vital Signs (Last 4 hours): Vital Signs Temp Pulse Resp BP Pulse Ox 10/02/16 14:00 107 H 26 H 116/74 91 L 10/02/16 12:48 113 H 24 117/71 90 L 10/02/16 12:00 98.2 F 108 H 26 H 84/50 L 95 10/02/16 11:00 72 24 129/68 96 Intake and Output (Last 8hrs): Intake & Output 10/01/16 10/02/16 10/02/16 22:59 06:59 14:59 Intake Total 816.5 424.5 131 Output Total 420 380 240 Balance 396.5 44.5 -109 Weight 82.7 kg Intake: Intake, IV Amount 466.5 334.5 31 Right Forearm 216.5 234.5 31 Left Hand 250 100 Lipid 150 Other 200 90 100 Output: Urine 420 380 240 Urethral (Antony) 420 380 240 - Physical Exam Head: Positive for: Atraumatic, Normocephalic, Other (ET Tube in place) Pupils: Positive for: PERRL Mouth: Positive for: Dry Respiratory/Chest: Positive for: Clear to Auscultation, Good Air Exchange, Rales. Negative for: Respiratory Distress, Accessory Muscle Use Cardiovascular: Positive for: Normal S1, S2, Irregular Rhythm. Negative for: Regular Rate and Rhythm, Murmurs Abdomen: Positive for: Tenderness, Distention, Normal Bowel Sounds, Guarding. Negative for: Peritoneal Signs, Rebound Upper Extremity: Positive for: Normal Inspection. Negative for: Cyanosis, Edema Lower Extremity: Positive for: Normal Inspection. Negative for: Edema, CALF TENDERNESS Skin: Positive for: Warm, Dry Psychiatric: Positive for: Alert - Medications Active Medications: Active Medications Generic Name Dose Route Start Last Admin Trade Name Freq PRN Reason Stop Dose Admin Albuterol/Ipratropium 3 ml 09/30/16 12:00 10/02/16 11:59 Duoneb 3 Mg/0.5 Mg (3 Ml) Ud INH 3 ml RQ4 JUVNEAL Administration Amlodipine Besylate 10 mg 09/29/16 10:00 10/02/16 10:29 Norvasc PO 10 mg DAILY JUVENAL Administration Aspirin 81 mg 09/24/16 18:30 10/02/16 10:30 Aspirin Chewable PO 81 mg DAILY JUVENAL Administration Budesonide 0.5 mg 10/02/16 20:00 Pulmicort Respules INH RQ12 JUVENAL Clopidogrel Bisulfate 75 mg 09/26/16 10:00 10/02/16 10:29 Plavix PO 75 mg DAILY JUVENAL Administration Diltiazem HCl 30 mg 09/26/16 22:15 10/02/16 10:34 Cardizem PO 30 mg Q6H JUVENAL Administration Enoxaparin Sodium 40 mg 09/26/16 13:00 10/02/16 10:03 Lovenox SC 40 mg DAILY JUVENAL Administration Famotidine 20 mg 09/29/16 10:00 10/02/16 10:29 Pepcid PO 20 mg DAILY JUVENAL Administration Hydralazine HCl 10 mg 09/29/16 19:58 09/29/16 20:30 Apresoline IVP 10 mg Q6H PRN Administration Other Ceftriaxone Sodium 2 gm/ 100 mls @ 100 mls/hr 09/23/16 23:30 10/01/16 22:47 Sodium Chloride IVPB 100 mls/hr Q24H JUVENAL Administration Azithromycin 500 mg/ Sodium 250 mls @ 250 mls/hr 09/23/16 22:15 10/01/16 21:15 Chloride IVPB 250 mls/hr Q24H JUVENAL Administration Insulin Human Regular 0 unit 09/27/16 06:00 10/02/16 11:47 Novolin R SC Not Given Q6 JUVENAL Protocol Lactulose 20 gm 09/29/16 22:00 10/01/16 21:12 Enulose PO 20 gm HS JUVENAL Administration Lisinopril 20 mg 09/29/16 09:54 10/02/16 10:29 Zestril NG 20 mg DAILY JUVENAL Administration Methylprednisolone 40 mg 09/29/16 10:00 10/02/16 10:30 Solu-Medrol IV 40 mg Q12 JUVENAL Administration Nicotine 1 patch 09/25/16 10:00 10/02/16 10:05 Nicoderm Cq TD 1 patch DAILY JUVENAL Administration Rosuvastatin Calcium 10 mg 09/23/16 22:00 10/01/16 21:13 Crestor PO 10 mg HS JUVENAL Administration - Patient Studies Lab Studies: Lab Studies 10/02/16 10/02/16 10/02/16 Range/Units 06:12 05:40 05:21 WBC 10.5 (4.8-10.8) K/uL RBC 4.59 (3.80-5.20) Mil/uL Hgb 13.6 (11.0-16.0) g/dL Hct 41.6 (34.0-47.0) % MCV 90.6 (81.0-99.0) fL MCH 29.8 (27.0-31.0) pg MCHC 32.8 L (33.0-37.0) g/dL RDW 14.9 H (11.5-14.5) % Plt Count 183 (130-400) K/uL MPV 9.6 (7.2-11.7) fL Neut % (Auto) 95.4 H (50.0-75.0) % Lymph % (Auto) 2.4 L (20.0-40.0) % [place] % (Auto) 1.8 (0.0-10.0) % Eos % (Auto) 0.0 (0.0-4.0) % Baso % (Auto) 0.4 (0.0-2.0) % Neut # 10.0 H (1.8-7.0) K/uL Lymph # 0.3 L (1.0-4.3) K/uL [place] # 0.2 (0.0-0.8) K/uL Eos # 0.0 (0.0-0.7) K/uL Baso # 0.0 (0.0-0.2) K/uL Neutrophils % (Manual) 95 H (50-75) % Band Neutrophils % 1 (0-2) % Lymphocytes % (Manual) 3 L (20-40) % Monocytes % (Manual) 1 (0-10) % Platelet Estimate Normal (NORMAL) Large Platelets Present RBC Morphology Normal PT 11.9 (9.7-12.2) SECONDS INR 1.1 APTT 28 D (21-34) SECONDS Puncture Site Rrad pCO2 42 (35-45) mm/Hg pO2 75 L (80-100) mm/Hg HCO3 25.6 (21-28) mmol/L ABG pH 7.40 (7.35-7.45) ABG Total CO2 27.3 (22-28) mmol/L ABG O2 Saturation 97.5 (95-98) % ABG Base Excess 1.0 (-2.0-3.0) mmol/L Fish Test Pos ABG Potassium 3.7 (3.6-5.2) mmol/L A-a O2 Difference 229.0 mm/Hg Respiratory Index 3.1 Glucose 183 H (65-105) mg/dl Lactate 0.7 (0.7-2.1) mmol/L Mechanical Rate 16 FiO2 50.0 % Tidal Volume 450 PEEP 5 Sodium 146 145.0 (132-148) mmol/L Potassium 3.9 (3.6-5.2) mmol/L Chloride 107 116.0 H (98-107) mmol/L Carbon Dioxide 27 (22-30) mmol/L Anion Gap 16 (10-20) BUN 51 H (7-17) mg/dL Creatinine 1.1 (0.7-1.2) MG/DL Est GFR ( Amer) 57 Est GFR (Non-Af Amer) 47 POC Glucose (mg/dL) 184 H (65-110) mg/dL Random Glucose 175 H (65-105) mg/dL Calcium 7.6 L (8.6-10.4) mg/dl Phosphorus 3.9 (2.5-4.5) mg/dL Magnesium 2.1 (1.6-2.3) mg/dL Total Bilirubin 0.4 (0.2-1.3) mg/dL AST 26 (14-36) U/L ALT 37 (9-52) U/L Alkaline Phosphatase 37 L (38-126) U/L Total Protein 5.1 L (6.3-8.3) g/dL Albumin 2.6 L (3.5-5.0) g/dL Globulin 2.5 (2.2-3.9) gm/dL Albumin/Globulin Ratio 1.0 (1.0-2.1) Arterial Blood Potassium 3.7 (3.6-5.2) mmol/L 10/02/16 10/01/16 10/01/16 Range/Units 00:15 17:15 12:15 WBC (4.8-10.8) K/uL RBC (3.80-5.20) Mil/uL Hgb (11.0-16.0) g/dL Hct (34.0-47.0) % MCV (81.0-99.0) fL MCH (27.0-31.0) pg MCHC (33.0-37.0) g/dL RDW (11.5-14.5) % Plt Count (130-400) K/uL MPV (7.2-11.7) fL Neut % (Auto) (50.0-75.0) % Lymph % (Auto) (20.0-40.0) % [place] % (Auto) (0.0-10.0) % Eos % (Auto) (0.0-4.0) % Baso % (Auto) (0.0-2.0) % Neut # (1.8-7.0) K/uL Lymph # (1.0-4.3) K/uL [place] # (0.0-0.8) K/uL Eos # (0.0-0.7) K/uL Baso # (0.0-0.2) K/uL Neutrophils % (Manual) (50-75) % Band Neutrophils % (0-2) % Lymphocytes % (Manual) (20-40) % Monocytes % (Manual) (0-10) % Platelet Estimate (NORMAL) Large Platelets RBC Morphology PT (9.7-12.2) SECONDS INR APTT (21-34) SECONDS Puncture Site pCO2 (35-45) mm/Hg pO2 (80-100) mm/Hg HCO3 (21-28) mmol/L ABG pH (7.35-7.45) ABG Total CO2 (22-28) mmol/L ABG O2 Saturation (95-98) % ABG Base Excess (-2.0-3.0) mmol/L Fish Test ABG Potassium (3.6-5.2) mmol/L A-a O2 Difference mm/Hg Respiratory Index Glucose (65-105) mg/dl Lactate (0.7-2.1) mmol/L Mechanical Rate FiO2 % Tidal Volume PEEP Sodium (132-148) mmol/L Potassium (3.6-5.2) mmol/L Chloride (98-107) mmol/L Carbon Dioxide (22-30) mmol/L Anion Gap (10-20) BUN (7-17) mg/dL Creatinine (0.7-1.2) MG/DL Est GFR ( Amer) Est GFR (Non-Af Amer) POC Glucose (mg/dL) 162 H 126 H 132 H (65-110) mg/dL Random Glucose (65-105) mg/dL Calcium (8.6-10.4) mg/dl Phosphorus (2.5-4.5) mg/dL Magnesium (1.6-2.3) mg/dL Total Bilirubin (0.2-1.3) mg/dL AST (14-36) U/L ALT (9-52) U/L Alkaline Phosphatase (38-126) U/L Total Protein (6.3-8.3) g/dL Albumin (3.5-5.0) g/dL Globulin (2.2-3.9) gm/dL Albumin/Globulin Ratio (1.0-2.1) Arterial Blood Potassium (3.6-5.2) mmol/L Laboratory Results - last 24 hr 10/01/16 10/01/16 10/02/16 12:15 17:15 00:15 WBC RBC Hgb Hct MCV MCH MCHC RDW Plt Count MPV Neut % (Auto) Lymph % (Auto) [place] % (Auto) Eos % (Auto) Baso % (Auto) Neut # Lymph # [place] # Eos # Baso # Neutrophils % (Manual) Band Neutrophils % Lymphocytes % (Manual) Monocytes % (Manual) Platelet Estimate Large Platelets RBC Morphology PT INR APTT Puncture Site pCO2 pO2 HCO3 ABG pH ABG Total CO2 ABG O2 Saturation ABG Base Excess Fish Test ABG Potassium A-a O2 Difference Respiratory Index Sodium Chloride Glucose Lactate Mechanical Rate FiO2 Tidal Volume PEEP Potassium Carbon Dioxide Anion Gap BUN Creatinine Est GFR ( Amer) Est GFR (Non-Af Amer) POC Glucose (mg/dL) 132 H 126 H 162 H Random Glucose Calcium Phosphorus Magnesium Total Bilirubin AST ALT Alkaline Phosphatase Total Protein Albumin Globulin Albumin/Globulin Ratio Arterial Blood Potassium 10/02/16 10/02/16 10/02/16 05:21 05:40 06:12 WBC 10.5 RBC 4.59 Hgb 13.6 Hct 41.6 MCV 90.6 MCH 29.8 MCHC 32.8 L RDW 14.9 H Plt Count 183 MPV 9.6 Neut % (Auto) 95.4 H Lymph % (Auto) 2.4 L [place] % (Auto) 1.8 Eos % (Auto) 0.0 Baso % (Auto) 0.4 Neut # 10.0 H Lymph # 0.3 L [place] # 0.2 Eos # 0.0 Baso # 0.0 Neutrophils % (Manual) 95 H Band Neutrophils % 1 Lymphocytes % (Manual) 3 L Monocytes % (Manual) 1 Platelet Estimate Normal Large Platelets Present RBC Morphology Normal PT 11.9 INR 1.1 APTT 28 D Puncture Site Rrad pCO2 42 pO2 75 L HCO3 25.6 ABG pH 7.40 ABG Total CO2 27.3 ABG O2 Saturation 97.5 ABG Base Excess 1.0 Fish Test Pos ABG Potassium 3.7 A-a O2 Difference 229.0 Respiratory Index 3.1 Sodium 145.0 146 Chloride 116.0 H 107 Glucose 183 H Lactate 0.7 Mechanical Rate 16 FiO2 50.0 Tidal Volume 450 PEEP 5 Potassium 3.9 Carbon Dioxide 27 Anion Gap 16 BUN 51 H Creatinine 1.1 Est GFR ( Amer) 57 Est GFR (Non-Af Amer) 47 POC Glucose (mg/dL) 184 H Random Glucose 175 H Calcium 7.6 L Phosphorus 3.9 Magnesium 2.1 Total Bilirubin 0.4 AST 26 ALT 37 Alkaline Phosphatase 37 L Total Protein 5.1 L Albumin 2.6 L Globulin 2.5 Albumin/Globulin Ratio 1.0 Arterial Blood Potassium 3.7 Fingerstick Blood Sugar Results: 120 Review of Systems - Review of Systems Systems not reviewed;Unavailable: Uncooperative Critical Care Progress Note - Ventilator Checklist Head of Bed 30 Degrees: Yes - Nutrition Nutrition: Nutrition Category Date Time Status NPO Diet [DIET] Diets 10/02/16 Breakfast Active Assessment/Plan - Assessment and Plan (Free Text) Assessment: This is an 86 y/o female with a suspected PMH of smoking, COPD, and HTN presenting with respiratory failure and hypercarbic encephalopathy. The patient has repeatedly failed CPAP trial with pressure support in attempt to extubate. The patient was extubated this morning and is sating well on 50% venti mask. Plan: Neuro: Patient awake and alert- confused Denies pain or discomfort 09/23/16 CT Head- Generalized atrophy. Nonspecific white matter changes. Nicotine patch 21mg ordered for tobacco abuse disorder Sedation: Precedex 1mcg/kg/hr Versed 2mg IV q4 PRN Agitation Cardiovascular: Irregularly Irregular rate HTN Troponin- 0.2400 > 0.2480 > 0.2490 09/24/16 ECHO- LV normal systolic function, normal chamber size, mild/trace triscupid regurg 09/23/16 EKG- sinus tachycardia with PACs, low voltage QRS, possible anteroseptal infarct age undetermined- official read pending Suspect elevated troponin due to demand ischemia Patient refusing cath 300mg Plavix loading dose given 09/25/16 75mg PO daily plavix Cardizem 30mg PO Q6 Lisinopril 20mg po daily Aspirin 81mg po daily Rouvastatin 10mg po hs Hydralazine 10mg IVP q6 PRN SBP >170 Norvasc 10mg PO daily Pulmonary: Patient extubated 8:50AM 10/02/16 Solumedrol 40mg IV q12 Budesonide 0.5mg INH Q12 Duoneb q4 Imagin10/02/16 CXR- Possible small left pleural effusion. No infiltrate. 10/01/16 CXR- No infiltrate. Lines and tubes unchanged. 09/30/16 CXR- No active pulmonary disease. Stable position of tubes. 09/29/16 CXR- Interval improvement in the right lung since the previous exam. 09/28/16 CXR- Interval worsening of heterogeneous opacities at the right lower lung since the previous exam. Appropriate position of the ETT and NG tube. 09/27/16 CXR- ET Tube proximal to the vicente. OG tube distal to diaphragm. Hazy bibasilar atelectasis. 09/26/16 CXR- Lines and tubes in stable position. Biapical pleural thickening with upper lobe granulomatous changes. Mild venous congestion. Chronic interstitial lung markings. Bibasilar airspace opacities 09/26/16 CT Chest- Small pleural effusions in atelectasis likely compressive bilaterally. Otherwise no significant pulmonary abnormalities. Underlying COPD and evidence of lower airway disease. Satisfactory position of support apparatus 09/25/16 CXR- ET tube in good position- official read pending 09/24/16 CXR- mild venous congestion 09/23/16 CXR- Probable Mach artifact with linear lucency in the left mid susie thorax. Mild venous congestion. Elevated right hemidiaphragm. Right hilar prominence. Endotracheal tube extending into the mid thoracic trachea. NG tube extending into the stomach. 09/23/16 CXR- Biapical pleural thickening with upper lobe granulomatous changes. Some airspace opacification at the right lung apex and right hilar region. Scattered nodularity in both lungs most predominant at the lung bases. Increased markings at the lung bases which may represent some patchy atelectasis. Ventilator settings: PRVC Rate 16, PEEP 5, FiO2 50%, TV 450mL AB10/02/16 pH 7.40, CO2 42, O2 75, HCO3 27.3 10/01/16 pH 7.38, CO2 41, O2 86, HCO3 24.3 09/30/16 pH 7.37, CO2 42, O2 97, HCO3 24.0 09/29/16 pH 7.36, CO2 44, O2 92, HCO3 24.3 09/28/16 pH 7.37, CO2 43, O2 85, HCO3 24.4 09/27/16 pH 7.27, CO2 45, O2 87, HCO3 20.1 09/26/16 (11:45) pH 7.24, CO2 57, O2 65, HCO3 21.8 09/26/16 (05:09) pH 7.28, CO2 50, O2 85, HCO3 22 09/25/16 pH 7.28, CO2 53, O2 113, HCO3 23 09/24/16 pH 7.32, CO2 54, O2 352, HCO3 25.4 09/23/16 O2 345 09/23/16 pH 7.22, CO2 80, O2 377, HCO3 26.9 GI: Protonix 40mg IV daily Rectal Tube- removed 08/29 to no output GI Consult- Dr. Ayala- May have steroid or ICU psychosis, insists she is going home and her family is picking her up today. Rec: Obtain swallow eval in anticipation of solid diet. Lactulose continue. Patient refusing abdominal XR. Gen Surg Consult- Dr. Jimenez- -no surgical intervention at this time- sign off Lactulose 20mg po HS 10/01/16 Abd XR- Mild dilatation of the transverse and ascending colon. No evidence of small bowel obstruction. No masses or abnormal intra-abdominal calcifications. Nasogastric tube tip in left upper quadrant of abdomen. No definite free intraperitoneal air. 09/29/16 CT ABd/Pelv- 1. Cholelithiasis without CT evidence for acute cholecystitis. 2. Colonic distention with air-fluid levels which may represent ileus or pseudo obstruction, no definite evidence of mass or colitis. 3. Mild sigmoid diverticulosis without CT evidence for acute diverticulitis. 4. Several large simple cysts in the left kidney. Nonvisualization of the right kidney. 5. Mild ascites and moderate bilateral pleural effusions. 09/29/16 Abd XR- Moderately dilated bowel loops at the mid to upper abdomen right more than left. If clinically warranted further assessment by CT is suggested. Hematology: No leukocytosis Hgb/Hct stable Bandemia improving 14 > 6 > 8 > 1 > 2 > 1 Endocrine: maintain euglycemia HbA1c- 5.9 Renal: Actue rise in BUN/Cr: improving Hypokalemia- resolved Hypomagnesemia- resolved ID: No leukocytosis U/A negative Blood Cx negative Day 10 Rocephin 2g IV daily- start 09/23/16 Day 9 Azithromycin 500mg IV daily- start 09/24/16 : None MSK: None GI Prophylaxis- pepcid 20mg po daily DVT Prophylaxis- lovenox 40mg sc daily Tommie Levy PGY1 - Date & Time Date: 10/02/16 Time: 14:48 <Kendrick Yo - Last Filed: 10/02/16 15:12> CCU Objective - Vital Signs / Intake & Output Vital Signs (Last 4 hours): Vital Signs Temp Pulse Resp BP Pulse Ox 10/02/16 14:00 107 H 26 H 116/74 91 L 10/02/16 12:48 113 H 24 117/71 90 L 10/02/16 12:00 98.2 F 108 H 26 H 84/50 L 95 Intake and Output (Last 8hrs): Intake & Output 10/02/16 10/02/16 10/02/16 06:59 14:59 22:59 Intake Total 424.5 131 Output Total 380 240 Balance 44.5 -109 Weight 182 lb 5.156 oz Intake: Intake, IV Amount 334.5 31 Right Forearm 234.5 31 Left Hand 100 Other 90 100 Output: Urine 380 240 Urethral (Antony) 380 240 - Medications Active Medications: Active Medications Generic Name Dose Route Start Last Admin Trade Name Anselmo PRN Reason Stop Dose Admin Albuterol/Ipratropium 3 ml 09/30/16 12:00 10/02/16 11:59 Duoneb 3 Mg/0.5 Mg (3 Ml) Ud INH 3 ml RQ4 JUVENAL Administration Amlodipine Besylate 10 mg 09/29/16 10:00 10/02/16 10:29 Norvasc PO 10 mg DAILY JUVENAL Administration Aspirin 81 mg 09/24/16 18:30 10/02/16 10:30 Aspirin Chewable PO 81 mg DAILY JUVENAL Administration Budesonide 0.5 mg 10/02/16 20:00 Pulmicort Respules INH RQ12 JUVENAL Clopidogrel Bisulfate 75 mg 09/26/16 10:00 10/02/16 10:29 Plavix PO 75 mg DAILY JUVENAL Administration Diltiazem HCl 30 mg 09/26/16 22:15 10/02/16 10:34 Cardizem PO 30 mg Q6H JUVENAL Administration Enoxaparin Sodium 40 mg 09/26/16 13:00 10/02/16 10:03 Lovenox SC 40 mg DAILY JUVENAL Administration Famotidine 20 mg 09/29/16 10:00 10/02/16 10:29 Pepcid PO 20 mg DAILY JUVENAL Administration Hydralazine HCl 10 mg 09/29/16 19:58 09/29/16 20:30 Apresoline IVP 10 mg Q6H PRN Administration Other Ceftriaxone Sodium 2 gm/ 100 mls @ 100 mls/hr 09/23/16 23:30 10/01/16 22:47 Sodium Chloride IVPB 100 mls/hr Q24H JUVENAL Administration Azithromycin 500 mg/ Sodium 250 mls @ 250 mls/hr 09/23/16 22:15 10/01/16 21:15 Chloride IVPB 250 mls/hr Q24H JUVENAL Administration Insulin Human Regular 0 unit 09/27/16 06:00 10/02/16 11:47 Novolin R SC Not Given Q6 JUVENAL Protocol Lactulose 20 gm 09/29/16 22:00 10/01/16 21:12 Enulose PO 20 gm HS JUVENAL Administration Lisinopril 20 mg 09/29/16 09:54 10/02/16 10:29 Zestril NG 20 mg DAILY JUVENAL Administration Methylprednisolone 40 mg 09/29/16 10:00 10/02/16 10:30 Solu-Medrol IV 40 mg Q12 JUVENAL Administration Nicotine 1 patch 09/25/16 10:00 10/02/16 10:05 Nicoderm Cq TD 1 patch DAILY JUVENAL Administration Rosuvastatin Calcium 10 mg 09/23/16 22:00 10/01/16 21:13 Crestor PO 10 mg HS JUVENAL Administration - Patient Studies Lab Studies: Lab Studies 10/02/16 10/02/16 10/02/16 Range/Units 06:12 05:40 05:21 WBC 10.5 (4.8-10.8) K/uL RBC 4.59 (3.80-5.20) Mil/uL Hgb 13.6 (11.0-16.0) g/dL Hct 41.6 (34.0-47.0) % MCV 90.6 (81.0-99.0) fL MCH 29.8 (27.0-31.0) pg MCHC 32.8 L (33.0-37.0) g/dL RDW 14.9 H (11.5-14.5) % Plt Count 183 (130-400) K/uL MPV 9.6 (7.2-11.7) fL Neut % (Auto) 95.4 H (50.0-75.0) % Lymph % (Auto) 2.4 L (20.0-40.0) % [place] % (Auto) 1.8 (0.0-10.0) % Eos % (Auto) 0.0 (0.0-4.0) % Baso % (Auto) 0.4 (0.0-2.0) % Neut # 10.0 H (1.8-7.0) K/uL Lymph # 0.3 L (1.0-4.3) K/uL [place] # 0.2 (0.0-0.8) K/uL Eos # 0.0 (0.0-0.7) K/uL Baso # 0.0 (0.0-0.2) K/uL Neutrophils % (Manual) 95 H (50-75) % Band Neutrophils % 1 (0-2) % Lymphocytes % (Manual) 3 L (20-40) % Monocytes % (Manual) 1 (0-10) % Platelet Estimate Normal (NORMAL) Large Platelets Present RBC Morphology Normal PT 11.9 (9.7-12.2) SECONDS INR 1.1 APTT 28 D (21-34) SECONDS Puncture Site Rrad pCO2 42 (35-45) mm/Hg pO2 75 L (80-100) mm/Hg HCO3 25.6 (21-28) mmol/L ABG pH 7.40 (7.35-7.45) ABG Total CO2 27.3 (22-28) mmol/L ABG O2 Saturation 97.5 (95-98) % ABG Base Excess 1.0 (-2.0-3.0) mmol/L Fish Test Pos ABG Potassium 3.7 (3.6-5.2) mmol/L A-a O2 Difference 229.0 mm/Hg Respiratory Index 3.1 Glucose 183 H (65-105) mg/dl Lactate 0.7 (0.7-2.1) mmol/L Mechanical Rate 16 FiO2 50.0 % Tidal Volume 450 PEEP 5 Sodium 146 145.0 (132-148) mmol/L Potassium 3.9 (3.6-5.2) mmol/L Chloride 107 116.0 H (98-107) mmol/L Carbon Dioxide 27 (22-30) mmol/L Anion Gap 16 (10-20) BUN 51 H (7-17) mg/dL Creatinine 1.1 (0.7-1.2) MG/DL Est GFR ( Amer) 57 Est GFR (Non-Af Amer) 47 POC Glucose (mg/dL) 184 H (65-110) mg/dL Random Glucose 175 H (65-105) mg/dL Calcium 7.6 L (8.6-10.4) mg/dl Phosphorus 3.9 (2.5-4.5) mg/dL Magnesium 2.1 (1.6-2.3) mg/dL Total Bilirubin 0.4 (0.2-1.3) mg/dL AST 26 (14-36) U/L ALT 37 (9-52) U/L Alkaline Phosphatase 37 L (38-126) U/L Total Protein 5.1 L (6.3-8.3) g/dL Albumin 2.6 L (3.5-5.0) g/dL Globulin 2.5 (2.2-3.9) gm/dL Albumin/Globulin Ratio 1.0 (1.0-2.1) Arterial Blood Potassium 3.7 (3.6-5.2) mmol/L 10/02/16 10/01/16 10/01/16 Range/Units 00:15 17:15 12:15 WBC (4.8-10.8) K/uL RBC (3.80-5.20) Mil/uL Hgb (11.0-16.0) g/dL Hct (34.0-47.0) % MCV (81.0-99.0) fL MCH (27.0-31.0) pg MCHC (33.0-37.0) g/dL RDW (11.5-14.5) % Plt Count (130-400) K/uL MPV (7.2-11.7) fL Neut % (Auto) (50.0-75.0) % Lymph % (Auto) (20.0-40.0) % [place] % (Auto) (0.0-10.0) % Eos % (Auto) (0.0-4.0) % Baso % (Auto) (0.0-2.0) % Neut # (1.8-7.0) K/uL Lymph # (1.0-4.3) K/uL [place] # (0.0-0.8) K/uL Eos # (0.0-0.7) K/uL Baso # (0.0-0.2) K/uL Neutrophils % (Manual) (50-75) % Band Neutrophils % (0-2) % Lymphocytes % (Manual) (20-40) % Monocytes % (Manual) (0-10) % Platelet Estimate (NORMAL) Large Platelets RBC Morphology PT (9.7-12.2) SECONDS INR APTT (21-34) SECONDS Puncture Site pCO2 (35-45) mm/Hg pO2 (80-100) mm/Hg HCO3 (21-28) mmol/L ABG pH (7.35-7.45) ABG Total CO2 (22-28) mmol/L ABG O2 Saturation (95-98) % ABG Base Excess (-2.0-3.0) mmol/L Fish Test ABG Potassium (3.6-5.2) mmol/L A-a O2 Difference mm/Hg Respiratory Index Glucose (65-105) mg/dl Lactate (0.7-2.1) mmol/L Mechanical Rate FiO2 % Tidal Volume PEEP Sodium (132-148) mmol/L Potassium (3.6-5.2) mmol/L Chloride (98-107) mmol/L Carbon Dioxide (22-30) mmol/L Anion Gap (10-20) BUN (7-17) mg/dL Creatinine (0.7-1.2) MG/DL Est GFR ( Amer) Est GFR (Non-Af Amer) POC Glucose (mg/dL) 162 H 126 H 132 H (65-110) mg/dL Random Glucose (65-105) mg/dL Calcium (8.6-10.4) mg/dl Phosphorus (2.5-4.5) mg/dL Magnesium (1.6-2.3) mg/dL Total Bilirubin (0.2-1.3) mg/dL AST (14-36) U/L ALT (9-52) U/L Alkaline Phosphatase (38-126) U/L Total Protein (6.3-8.3) g/dL Albumin (3.5-5.0) g/dL Globulin (2.2-3.9) gm/dL Albumin/Globulin Ratio (1.0-2.1) Arterial Blood Potassium (3.6-5.2) mmol/L Laboratory Results - last 24 hr 10/01/16 10/01/16 10/02/16 12:15 17:15 00:15 WBC RBC Hgb Hct MCV MCH MCHC RDW Plt Count MPV Neut % (Auto) Lymph % (Auto) [place] % (Auto) Eos % (Auto) Baso % (Auto) Neut # Lymph # [place] # Eos # Baso # Neutrophils % (Manual) Band Neutrophils % Lymphocytes % (Manual) Monocytes % (Manual) Platelet Estimate Large Platelets RBC Morphology PT INR APTT Puncture Site pCO2 pO2 HCO3 ABG pH ABG Total CO2 ABG O2 Saturation ABG Base Excess Fish Test ABG Potassium A-a O2 Difference Respiratory Index Sodium Chloride Glucose Lactate Mechanical Rate FiO2 Tidal Volume PEEP Potassium Carbon Dioxide Anion Gap BUN Creatinine Est GFR ( Amer) Est GFR (Non-Af Amer) POC Glucose (mg/dL) 132 H 126 H 162 H Random Glucose Calcium Phosphorus Magnesium Total Bilirubin AST ALT Alkaline Phosphatase Total Protein Albumin Globulin Albumin/Globulin Ratio Arterial Blood Potassium 10/02/16 10/02/16 10/02/16 05:21 05:40 06:12 WBC 10.5 RBC 4.59 Hgb 13.6 Hct 41.6 MCV 90.6 MCH 29.8 MCHC 32.8 L RDW 14.9 H Plt Count 183 MPV 9.6 Neut % (Auto) 95.4 H Lymph % (Auto) 2.4 L [place] % (Auto) 1.8 Eos % (Auto) 0.0 Baso % (Auto) 0.4 Neut # 10.0 H Lymph # 0.3 L [place] # 0.2 Eos # 0.0 Baso # 0.0 Neutrophils % (Manual) 95 H Band Neutrophils % 1 Lymphocytes % (Manual) 3 L Monocytes % (Manual) 1 Platelet Estimate Normal Large Platelets Present RBC Morphology Normal PT 11.9 INR 1.1 APTT 28 D Puncture Site Rrad pCO2 42 pO2 75 L HCO3 25.6 ABG pH 7.40 ABG Total CO2 27.3 ABG O2 Saturation 97.5 ABG Base Excess 1.0 Fish Test Pos ABG Potassium 3.7 A-a O2 Difference 229.0 Respiratory Index 3.1 Sodium 145.0 146 Chloride 116.0 H 107 Glucose 183 H Lactate 0.7 Mechanical Rate 16 FiO2 50.0 Tidal Volume 450 PEEP 5 Potassium 3.9 Carbon Dioxide 27 Anion Gap 16 BUN 51 H Creatinine 1.1 Est GFR ( Amer) 57 Est GFR (Non-Af Amer) 47 POC Glucose (mg/dL) 184 H Random Glucose 175 H Calcium 7.6 L Phosphorus 3.9 Magnesium 2.1 Total Bilirubin 0.4 AST 26 ALT 37 Alkaline Phosphatase 37 L Total Protein 5.1 L Albumin 2.6 L Globulin 2.5 Albumin/Globulin Ratio 1.0 Arterial Blood Potassium 3.7 Critical Care Progress Note - Nutrition Nutrition: Nutrition Category Date Time Status NPO Diet [DIET] Diets 10/02/16 Breakfast Active Assessment/Plan (1) Acute respiratory failure with hypoxia and hypercarbia Current Visit: Yes Status: Acute (2) Acute OK Current Visit: Yes Status: Acute Attending/Attestation - Attestation I have personally seen and examined this patient.: Yes I have fully participated in the care of the patient.: Yes I have reviewed all pertinent clinical information: Yes Notes (Text): 10/02/16 15:11 Patient seen and examined in the intensive care unit. Case discussed with house staff in the morning rounds. Extubated after weaning trial Awake and responsive Bowel movement last night and rectal tube was removed Continue steroids and nebulizer treatment BiPAP as needed
[2016-10-02] MEDS ORDERED: Dexmedetomidine Hydrochloride 200 MCG in Sodium Chloride 0.9% 48 ML IVPB PRN (16:56)
[2016-10-02] MEDS ORDERED: Dexmedetomidine Hydrochloride 400 MCG in Sodium Chloride 0.9% 96 ML IVPB PRN (17:00)
[2016-10-02] MEDS: Budesonide 0.5 mg/2 ml Inhal Susp UD INH SCH (20:32)
[2016-10-02] MEDS: Azithromycin 500 MG in Sodium Chloride 0.9% 250 ML IVPB SCH (21:32)
[2016-10-02] MEDS: cefTRIAXone 2 GM in Sodium Chloride 0.9% 100 ML IVPB SCH (23:00)
[2016-10-03] MEDS: Albuterol-Ipratrop 3 mg / 0.5 (3 ml) UD INH SCH ×7 (00:38→19:21)
--- NOTE | 2016-10-03 00:38 | CP.PCM.PN ---
Subjective - Date & Time of Evaluation Date of Evaluation: 10/02/16 Time of Evaluation: 12:41 - Subjective Subjective: PT SEEN AND EVALUATED, WAS EXTUBATED S VERY ANXIOUS AND AGITATED WANTS TO GO HOME, MITTENS ON HANDS Objective - Vital Signs/Intake and Output Vital Signs (last 24 hours): Temp Pulse Resp BP Pulse Ox 97.1 F L 95 H 29 H 123/66 92 L 10/03/16 00:00 10/03/16 00:00 10/03/16 00:00 10/02/16 23:04 10/03/16 00:00 Intake and Output: 10/02/16 10/03/16 18:59 06:59 Intake Total 139.2 374.6 Output Total 360 190 Balance -220.8 184.6 - Medications Medications: Current Medications Albuterol/Ipratropium (Duoneb 3 Mg/0.5 Mg (3 Ml) Ud) 3 ml INH RQ4 [facility] Last Admin: 10/02/16 20:32 Dose: 3 ml Amlodipine Besylate (Norvasc) 10 mg PO DAILY [facility] Last Admin: 10/02/16 10:29 Dose: 10 mg Aspirin (Aspirin Chewable) 81 mg PO DAILY [facility] [place] Last Admin: 10/02/16 10:30 Dose: 81 mg Budesonide (Pulmicort Respules) 0.5 mg INH RQ12 [facility] Last Admin: 10/02/16 20:32 Dose: 0.5 mg Clopidogrel Bisulfate (Plavix) 75 mg PO DAILY [facility] Last Admin: 10/02/16 10:29 Dose: 75 mg Diltiazem HCl (Cardizem) 30 mg PO Q6H [facility] Last Admin: 10/02/16 22:15 Dose: Not Given Enoxaparin Sodium (Lovenox) 40 mg SC DAILY [facility] Last Admin: 10/02/16 10:03 Dose: 40 mg Famotidine (Pepcid) 20 mg PO DAILY [facility] Last Admin: 10/02/16 10:29 Dose: 20 mg Hydralazine HCl (Apresoline) 10 mg IVP Q6H PRN PRN Reason: Other Last Admin: 09/29/16 20:30 Dose: 10 mg Ceftriaxone Sodium 2 gm/ (Sodium Chloride) 100 mls @ 100 mls/hr IVPB Q24H [facility] Last Admin: 10/02/16 23:00 Dose: 100 mls/hr Azithromycin 500 mg/ Sodium (Chloride) 250 mls @ 250 mls/hr IVPB Q24H [facility] Last Admin: 10/02/16 21:32 Dose: 250 mls/hr Dexmedetomidine HCl 400 mcg/ (Sodium Chloride) 100 mls @ 4.13 mls/hr IVPB TITR PRN; Protocol; 0.2 MCG/KG/HR PRN Reason: Agitation Last Admin: 10/02/16 17:14 Dose: 4.13 mls/hr Insulin Human Regular (Novolin R) 0 unit SC Q6 [facility] PRN Reason: Protocol Last Admin: 10/03/16 00:00 Dose: Not Given Lactulose (Enulose) 20 gm PO HS [facility] Last Admin: 10/02/16 22:00 Dose: Not Given Lisinopril (Zestril) 20 mg NG DAILY [facility] Last Admin: 10/02/16 10:29 Dose: 20 mg Methylprednisolone (Solu-Medrol) 40 mg IV Q12 [facility] Last Admin: 10/02/16 21:33 Dose: 40 mg Nicotine (Nicoderm Cq) 1 patch TD DAILY [facility] Last Admin: 10/02/16 10:05 Dose: 1 patch Rosuvastatin Calcium (Crestor) 10 mg PO HS [facility] Last Admin: 10/02/16 22:00 Dose: Not Given - Labs Labs: 10/02/16 06:12 10/02/16 06:12 PT 11.9 SECONDS (9.7-12.2) 10/02/16 06:12 INR 1.1 10/02/16 06:12 APTT 28 SECONDS (21-34) D 10/02/16 06:12 - Constitutional Appears: Agitated, Chronically Ill - Eye Exam Eye Exam: EOMI, Normal appearance, PERRL Pupil Exam: NORMAL ACCOMODATION, PERRL - Respiratory Exam Respiratory Exam: Decreased Breath Sounds - Cardiovascular Exam Cardiovascular Exam: REGULAR RHYTHM, +S1, +S2. absent: Murmur - GI/Abdominal Exam GI & Abdominal Exam: Soft, Normal Bowel Sounds. absent: Tenderness Assessment and Plan (1) Acute respiratory failure with hypoxia and hypercarbia Status: Resolved (2) Altered mental status Status: Resolved (3) Acute MT Status: Acute
[2016-10-03] MEDS: (Novolin R) Insulin Human Regular 100 units/ml vial SC SCH ×4 (06:00→19:01)
[2016-10-03 06:05] LABS: BASO % 0.2 % (0.0-2.0); HEMATOCRIT 38.6 % (34.0-47.0); LYMPH # 0.4 K/uL (1.0-4.3); LYMPH % 3.1 % (20.0-40.0); MEAN CELL VOLUME 90.7 fL (81.0-99.0); MEAN CORPUSCULAR HGB CONC 33.1 g/dL (33.0-37.0); MEAN PLATELET VOLUME 9.5 fL (7.2-11.7); MONO # 0.3 K/uL (0.0-0.8); MONO % 2.8 % (0.0-10.0); PLATELET COUNT 178 K/uL (130-400); RED CELL DISTRIBUTION WIDTH 14.7 % (11.5-14.5)
[2016-10-03 06:14] LABS: POTASSIUM 3.4 mmol/L (3.6-5.2)
[2016-10-03 06:16] LABS: BILIRUBIN,TOTAL 0.5 mg/dL (0.2-1.3)
[2016-10-03 06:17] LABS: ALB/GLOB RATIO 1.2 (1.0-2.1); CALCIUM 7.9 mg/dl (8.6-10.4); MAGNESIUM 2.1 mg/dL (1.6-2.3); PHOSPHOROUS 3.8 mg/dL (2.5-4.5); TOTAL PROTEIN 5.1 g/dL (6.3-8.3)
[2016-10-03] MEDS ORDERED: Potassium Chloride 20 mEq/15 ml LIQ UD PO STA ×2 (07:27→08:50)
[2016-10-03] MEDS: Budesonide 0.5 mg/2 ml Inhal Susp UD INH SCH ×2 (07:32→19:21)
[2016-10-03 07:53] LABS: INR 1.1
[2016-10-03 09:09] LABS: NEUTROPHIL 94 % (50-75); TOTAL CELLS COUNTED 100
[2016-10-03] MEDS: Enoxaparin 40 mg Syringe SC SCH (09:11)
[2016-10-03] MEDS: MethylPREDNISolone 40 mg Vial IV SCH ×2 (09:28→22:13)
--- NOTE | 2016-10-03 11:17 | CP.PCM.PN ---
Objective - Vital Signs/Intake and Output Vital Signs (last 24 hours): Temp Pulse Resp BP Pulse Ox 97 F L 95 H 28 H 143/69 96 10/03/16 04:00 10/03/16 09:00 10/03/16 09:00 10/03/16 08:58 10/03/16 09:00 Intake and Output: 10/03/16 10/03/16 06:59 18:59 Intake Total 411.8 18.6 Output Total 405 100 Balance 6.8 -81.4 - Medications Medications: Current Medications Albuterol/Ipratropium (Duoneb 3 Mg/0.5 Mg (3 Ml) Ud) 3 ml INH RQ4 [facility] Last Admin: 10/03/16 07:32 Dose: 3 ml Amlodipine Besylate (Norvasc) 10 mg PO DAILY [facility] Last Admin: 10/03/16 09:10 Dose: 10 mg Aspirin (Aspirin Chewable) 81 mg PO DAILY [facility] Last Admin: 10/03/16 09:27 Dose: 81 mg Budesonide (Pulmicort Respules) 0.5 mg INH RQ12 [facility] Last Admin: 10/03/16 07:32 Dose: 0.5 mg Clopidogrel Bisulfate (Plavix) 75 mg PO DAILY [facility] Last Admin: 10/03/16 09:10 Dose: 75 mg Diltiazem HCl (Cardizem) 30 mg PO Q6H [facility] Last Admin: 10/03/16 09:26 Dose: 30 mg Enoxaparin Sodium (Lovenox) 40 mg SC DAILY [facility] Last Admin: 10/03/16 09:11 Dose: 40 mg Famotidine (Pepcid) 20 mg PO DAILY [facility] Last Admin: 10/03/16 09:10 Dose: 20 mg Hydralazine HCl (Apresoline) 10 mg IVP Q6H PRN PRN Reason: Other Last Admin: 09/29/16 20:30 Dose: 10 mg Dexmedetomidine HCl 400 mcg/ (Sodium Chloride) 100 mls @ 4.13 mls/hr IVPB TITR PRN; Protocol; 0.2 MCG/KG/HR PRN Reason: Agitation Last Admin: 10/02/16 17:14 Dose: 4.13 mls/hr Insulin Human Regular (Novolin R) 0 unit SC Q6 [facility] PRN Reason: Protocol Last Admin: 10/03/16 06:00 Dose: Not Given Lactulose (Enulose) 20 gm PO HS [facility] Last Admin: 10/02/16 22:00 Dose: Not Given Lisinopril (Zestril) 20 mg NG DAILY [facility] Last Admin: 10/03/16 09:10 Dose: 20 mg Methylprednisolone (Solu-Medrol) 40 mg IV Q12 [facility] Last Admin: 10/03/16 09:28 Dose: 40 mg Nicotine (Nicoderm Cq) 1 patch TD DAILY [facility] Last Admin: 10/03/16 09:12 Dose: 1 patch Rosuvastatin Calcium (Crestor) 10 mg PO HS [facility] Last Admin: 10/02/16 22:00 Dose: Not Given - Labs Labs: 10/03/16 05:57 10/03/16 05:57 PT 12.4 SECONDS (9.7-12.2) H 10/03/16 05:57 INR 1.1 10/03/16 05:57 APTT 29 SECONDS (21-34) 10/03/16 05:57 Assessment and Plan (1) Acute respiratory failure with hypoxia and hypercarbia Status: Acute (2) Acute CA Status: Acute
--- NOTE | 2016-10-03 12:33 | CP.CCUPN ---
<Fabian Levy - Last Filed: 10/03/16 12:27> CCU Subjective - Physician Review Subjective (Free Text): 09/24/16 13:39 Patient was seen and examined at bedside. No acute distress on ventilator. No acute events overnight. Nursing staff reports no issues. Patient is resting comfortably on the bed, maintained on a propofol drip 10mcg/kg/min. Patient is lethargic but awakens to voice, follows command. Denies any pain or complaints aside from the ventilator. Hypercarbia has improved on todays ABG. 09/25/16 10:20 Patient was seen and examined at bedside. No acute distress on ventilator. No acute events overnight. Nursing staff reports no issues. Patient is resting comfortably on the bed. Patient is on cPAP. Patient is planned for extubation today. Hypercarbia has stabilized. Patient is likely at her baseline. Today, nicotine patch was ordered and a fluid challenge (250cc bolus) due to acute rise in BUN/Cr. 09/26/16 13:51 Patient was seen and examined at bedside. No acute distress on ventilator. No acute events overnight. Patient was trialed on CPAP yesterday [id number]. Patient had poor inspiratory volumes and was placed back on vent. The patient was again tried on CPAP this morning but could not maintain adequate tidal volume. The patient was placed back on the ventilator at an increased rate to decrease her PCO2. Today, the patients respiratory rate was increased to 16. A CT of the Chest was ordered. Feeds were restarted, and lovenox 40mg sc daily was started for dvt prophylaxis. 09/27/16 08:40 Patient was seen and examined at bedside. No acute distress on ventilator. No acute events overnight. Nursing staff reports no issues. Patient remains intubated (TV 450mL, FiO2 50%, Rate 16, PEEP 5) and sedated 0.2mcg/kg/hr on prededex. The patient has bee trialed x2 with CPAP and not tolerated. The patient has continued to have a respiratory acidosis. The patient was tachycardic 5mg of Lopressor was given IV x1 and Cardizem 30mg PO q6 was started. Today, the patient was started on lisinopril for HTN. Hydralazine IV was added PRN for HTN coverage for SBP >170mmHg. The patient was again tried on CPAP 15/ 5 but could not tolerate the transition and thus was put back on PRVC. 09/30/16 12:18 Patient was seen and examined at bedside. No acute distress on ventilator. No acute events overnight. Nursing staff reports no issues. Patient remains intubated (TV 450mL, FiO2 50%, Rate 16, PEEP 5). The patient will be trialed on CPAP 15/5 for possible extubation today. Today, the patient was taken off PRVC and placed on 15/5 CPAP with pressure support for extubation trial. The patient's magnesium was replaced and duonebs reordered q4 juvenal. 10/01/16 13:27 Patient was seen and examined at bedside. No acute distress on ventilator. No acute events overnight. Nursing staff reports no issues. Patient remains intubated (TV 450mL, FiO2 50%, Rate 16, PEEP 5) with a peak pressure of [id number] on PRVC. The patient has complaint of abdominal pain this morning. Her stomach appears grossly distended. GI and general surgery have been consulted to see the patient. The nursing staff reports multiple episodes of diarrhea without formed stool elements. Today, the patient will again be trialed on CPAP with pressure support for possible extubation. 10/02/16 14:37 Patient was seen and examined at bedside. No acute distress. No acute events overnight. Nursing staff reports no issues. Patient remains intubated and will be extubated today. This morning, the patient is agitated with her current intubation status and refused all abdominal imaging studies. Today, the patient was extubated at 8:50AM and has since tolerated breathing on her own well. She is currently sating well on 50% O2 on venti mask. 10/03/16 12:27 Patient was seen and examined at bedside. No acute distress. No acute events overnight. Nursing staff reports no issues. Patient was extubated yesterday 10/02. The patient remains tachypneic. The patient was unable to pass swallow eval yesterday 08/29 to desatuation during the study. The study will be repeated today. The patient reports that she wants to go home again today, but denies all complaints. Today, the patient will be assessed for swallow evaluation. Her potassium was replaced during rounds. 10/03/16 12:33 Critical Care Time Spent (in minutes): 60 CCU Objective - Vital Signs / Intake & Output Vital Signs (Last 4 hours): Vital Signs Pulse Resp BP Pulse Ox 10/03/16 11:00 116 H 20 93 L 10/03/16 10:57 111 H 23 156/80 H 94 L 10/03/16 10:00 108 H 20 140/78 94 L 10/03/16 09:01 116 H 34 H 92 L 10/03/16 09:00 95 H 28 H 96 10/03/16 08:58 105 H 33 H 143/69 95 10/03/16 08:28 105 H 18 95 Intake and Output (Last 8hrs): Intake & Output 10/02/16 10/03/16 10/03/16 22:59 06:59 14:59 Intake Total 274.6 145.4 18.6 Output Total 250 275 135 Balance 24.6 -129.6 -116.4 Weight 83.603 kg Intake: Intake, IV Amount 274.6 145.4 18.6 Right Forearm 24.6 45.4 18.6 Left Hand 250 100 Output: Urine 250 275 135 Urethral (Antony) 250 275 135 - Physical Exam Physical Exam Limitations: Positive for: Uncooperative Head: Positive for: Atraumatic, Normocephalic, Other (ET Tube in place) Pupils: Positive for: PERRL Extroacular Muscles: Positive for: EOMI Mouth: Positive for: Dry Respiratory/Chest: Positive for: Clear to Auscultation, Good Air Exchange, Rales , Tachypneic. Negative for: Respiratory Distress, Accessory Muscle Use Cardiovascular: Positive for: Normal S1, S2, Irregular Rhythm. Negative for: Regular Rate and Rhythm, Murmurs Abdomen: Positive for: Tenderness, Distention, Normal Bowel Sounds, Guarding. Negative for: Peritoneal Signs, Rebound Upper Extremity: Positive for: Normal Inspection. Negative for: Cyanosis, Edema Lower Extremity: Positive for: Normal Inspection. Negative for: Edema, CALF TENDERNESS Neurological: Positive for: CN II-XII Intact Skin: Positive for: Warm, Dry Psychiatric: Positive for: Alert - Medications Active Medications: Active Medications Generic Name Dose Route Start Last Admin Trade Name Freq PRN Reason Stop Dose Admin Albuterol/Ipratropium 3 ml 09/30/16 12:00 10/03/16 11:41 Duoneb 3 Mg/0.5 Mg (3 Ml) Ud INH 3 ml RQ4 JUVENAL Administration Amlodipine Besylate 10 mg 03/05/17 10:00 10/03/16 09:10 Norvasc PO 10 mg DAILY JUVENAL Administration Aspirin 81 mg 09/24/16 18:30 10/03/16 09:27 Aspirin Chewable PO 81 mg DAILY JUVENAL Administration Budesonide 0.5 mg 10/02/16 20:00 10/03/16 07:32 Pulmicort Respules INH 0.5 mg RQ12 JUVENAL Administration Clopidogrel Bisulfate 75 mg 09/26/16 10:00 10/03/16 09:10 Plavix PO 75 mg DAILY JUVENAL Administration Diltiazem HCl 30 mg 09/26/16 22:15 10/03/16 09:26 Cardizem PO 30 mg Q6H JUVENAL Administration Enoxaparin Sodium 40 mg 09/26/16 13:00 10/03/16 09:11 Lovenox SC 40 mg DAILY JUVENAL Administration Famotidine 20 mg 09/29/16 10:00 10/03/16 09:10 Pepcid PO 20 mg DAILY [facility] Administration Hydralazine HCl 10 mg 09/29/16 19:58 09/29/16 20:30 Apresoline IVP 10 mg Q6H PRN Administration Other Dexmedetomidine HCl 400 mcg/ 100 mls @ 4.13 mls/hr 10/02/16 17:00 10/02/16 17: 14 Sodium Chloride IVPB 4.13 mls/hr TITR PRN Administration Agitation Protocol 0.2 MCG/KG/HR Insulin Human Regular 0 unit 09/27/16 06:00 10/03/16 06:00 Novolin R SC Not Given Q6 [facility] Protocol Lactulose 20 gm 09/29/16 22:00 10/02/16 22:00 Enulose PO Not Given HS [facility] Lisinopril 20 mg 09/29/16 09:54 10/03/16 09:10 Zestril NG 20 mg DAILY [facility] Administration Methylprednisolone 40 mg 09/29/16 10:00 10/03/16 09:28 Solu-Medrol IV 40 mg Q12 [facility] Administration Nicotine 1 patch 09/25/16 10:00 10/03/16 09:12 Nicoderm Cq TD 1 patch DAILY [facility] Administration Rosuvastatin Calcium 10 mg 09/23/16 22:00 10/02/16 22:00 Crestor PO Not Given HS JU[facility] - Patient Studies Lab Studies: Lab Studies 10/03/16 10/03/16 10/03/16 Range/Units 11:18 06:13 05:57 WBC 12.0 H (4.8-10.8) K/uL RBC 4.25 (3.80-5.20) Mil/uL Hgb 12.8 (11.0-16.0) g/dL Hct 38.6 (34.0-47.0) % MCV 90.7 (81.0-99.0) fL MCH 30.0 (27.0-31.0) pg MCHC 33.1 (33.0-37.0) g/dL RDW 14.7 H (11.5-14.5) % Plt Count 178 (130-400) K/uL MPV 9.5 (7.2-11.7) fL Neut % (Auto) 93.9 H (50.0-75.0) % Lymph % (Auto) 3.1 L (20.0-40.0) % [place] % (Auto) 2.8 (0.0-10.0) % Eos % (Auto) 0.0 (0.0-4.0) % Baso % (Auto) 0.2 (0.0-2.0) % Neut # 11.3 H (1.8-7.0) K/uL Lymph # 0.4 L (1.0-4.3) K/uL [place] # 0.3 (0.0-0.8) K/uL Eos # 0.0 (0.0-0.7) K/uL Baso # 0.0 (0.0-0.2) K/uL Neutrophils % (Manual) 94 H (50-75) % Lymphocytes % (Manual) 3 L (20-40) % Monocytes % (Manual) 3 (0-10) % Platelet Estimate Normal (NORMAL) Poikilocytosis (manual Slight Anisocytosis (manual) Slight PT 12.4 H (9.7-12.2) SECONDS INR 1.1 APTT 29 (21-34) SECONDS Sodium 150 H (132-148) mmol/L Potassium 3.4 L (3.6-5.2) mmol/L Chloride 107 (98-107) mmol/L Carbon Dioxide 27 (22-30) mmol/L Anion Gap 19 (10-20) BUN 47 H (7-17) mg/dL Creatinine 1.2 (0.7-1.2) MG/DL Est GFR ( Amer) 52 Est GFR (Non-Af Amer) 43 POC Glucose (mg/dL) 193 H 163 H (65-110) mg/dL Random Glucose 152 H (65-105) mg/dL Calcium 7.9 L (8.6-10.4) mg/dl Phosphorus 3.8 (2.5-4.5) mg/dL Magnesium 2.1 (1.6-2.3) mg/dL Total Bilirubin 0.5 (0.2-1.3) mg/dL AST 26 (14-36) U/L ALT 38 (9-52) U/L Alkaline Phosphatase 39 (38-126) U/L Total Protein 5.1 L (6.3-8.3) g/dL Albumin 2.7 L (3.5-5.0) g/dL Globulin 2.4 (2.2-3.9) gm/dL Albumin/Globulin Ratio 1.2 (1.0-2.1) 10/02/16 10/02/16 10/02/16 Range/Units 23:52 18:03 11:31 WBC (4.8-10.8) K/uL RBC (3.80-5.20) Mil/uL Hgb (11.0-16.0) g/dL Hct (34.0-47.0) % MCV (81.0-99.0) fL MCH (27.0-31.0) pg MCHC (33.0-37.0) g/dL RDW (11.5-14.5) % Plt Count (130-400) K/uL MPV (7.2-11.7) fL Neut % (Auto) (50.0-75.0) % Lymph % (Auto) (20.0-40.0) % [place] % (Auto) (0.0-10.0) % Eos % (Auto) (0.0-4.0) % Baso % (Auto) (0.0-2.0) % Neut # (1.8-7.0) K/uL Lymph # (1.0-4.3) K/uL [place] # (0.0-0.8) K/uL Eos # (0.0-0.7) K/uL Baso # (0.0-0.2) K/uL Neutrophils % (Manual) (50-75) % Lymphocytes % (Manual) (20-40) % Monocytes % (Manual) (0-10) % Platelet Estimate (NORMAL) Poikilocytosis (manual Anisocytosis (manual) PT (9.7-12.2) SECONDS INR APTT (21-34) SECONDS Sodium (132-148) mmol/L Potassium (3.6-5.2) mmol/L Chloride (98-107) mmol/L Carbon Dioxide (22-30) mmol/L Anion Gap (10-20) BUN (7-17) mg/dL Creatinine (0.7-1.2) MG/DL Est GFR ( Amer) Est GFR (Non-Af Amer) POC Glucose (mg/dL) 126 H 93 120 H (65-110) mg/dL Random Glucose (65-105) mg/dL Calcium (8.6-10.4) mg/dl Phosphorus (2.5-4.5) mg/dL Magnesium (1.6-2.3) mg/dL Total Bilirubin (0.2-1.3) mg/dL AST (14-36) U/L ALT (9-52) U/L Alkaline Phosphatase (38-126) U/L Total Protein (6.3-8.3) g/dL Albumin (3.5-5.0) g/dL Globulin (2.2-3.9) gm/dL Albumin/Globulin Ratio (1.0-2.1) Laboratory Results - last 24 hr 10/02/16 10/02/16 10/02/16 11:31 18:03 23:52 WBC RBC Hgb Hct MCV MCH MCHC RDW Plt Count MPV Neut % (Auto) Lymph % (Auto) [place] % (Auto) Eos % (Auto) Baso % (Auto) Neut # Lymph # [place] # Eos # Baso # Neutrophils % (Manual) Lymphocytes % (Manual) Monocytes % (Manual) Platelet Estimate Poikilocytosis (manual Anisocytosis (manual) PT INR APTT Sodium Potassium Chloride Carbon Dioxide Anion Gap BUN Creatinine Est GFR ( Amer) Est GFR (Non-Af Amer) POC Glucose (mg/dL) 120 H 93 126 H Random Glucose Calcium Phosphorus Magnesium Total Bilirubin AST ALT Alkaline Phosphatase Total Protein Albumin Globulin Albumin/Globulin Ratio 10/03/16 10/03/16 10/03/16 05:57 06:13 11:18 WBC 12.0 H RBC 4.25 Hgb 12.8 Hct 38.6 MCV 90.7 MCH 30.0 MCHC 33.1 RDW 14.7 H Plt Count 178 MPV 9.5 Neut % (Auto) 93.9 H Lymph % (Auto) 3.1 L [place] % (Auto) 2.8 Eos % (Auto) 0.0 Baso % (Auto) 0.2 Neut # 11.3 H Lymph # 0.4 L [place] # 0.3 Eos # 0.0 Baso # 0.0 Neutrophils % (Manual) 94 H Lymphocytes % (Manual) 3 L Monocytes % (Manual) 3 Platelet Estimate Normal Poikilocytosis (manual Slight Anisocytosis (manual) Slight PT 12.4 H INR 1.1 APTT 29 Sodium 150 H Potassium 3.4 L Chloride 107 Carbon Dioxide 27 Anion Gap 19 BUN 47 H Creatinine 1.2 Est GFR ( Amer) 52 Est GFR (Non-Af Amer) 43 POC Glucose (mg/dL) 163 H 193 H Random Glucose 152 H Calcium 7.9 L Phosphorus 3.8 Magnesium 2.1 Total Bilirubin 0.5 AST 26 ALT 38 Alkaline Phosphatase 39 Total Protein 5.1 L Albumin 2.7 L Globulin 2.4 Albumin/Globulin Ratio 1.2 Fingerstick Blood Sugar Results: 163 Review of Systems - Review of Systems All systems: reviewed and no additional remarkable complaints except - EENT Nose/Mouth/Throat: Dry Mouth - Respiratory Respiratory: Dyspnea Critical Care Progress Note - Ventilator Checklist Head of Bed 30 Degrees: Yes - Extremities/Vascular Does the Patient have a Central Venous Catheter?: No Does the Patient need a Central Venous Catheter?: No Does the Patient have a Antony Catheter?: Yes (DC Today) Does the Patient need a Antony Catheter?: No - Prophylaxis GI Prophylaxis GI: Pepsid - Prophylaxis DVT Prophylaxis DVT: Lovenox - Nutrition Nutrition: Nutrition Category Date Time Status NPO Diet [DIET] Diets 10/02/16 Breakfast Active Assessment/Plan - Assessment and Plan (Free Text) Assessment: This is an 86 y/o female with a suspected PMH of smoking, COPD, and HTN presenting with respiratory failure and hypercarbic encephalopathy. The patient has repeatedly failed CPAP trial with pressure support in attempt to extubate. The patient was extubated 10/02/16 and sating well on 50% venti mask at 15LPM. Plan: Neuro: Patient awake and alert Denies pain or discomfort 09/23/16 CT Head- Generalized atrophy. Nonspecific white matter changes. Nicotine patch 21mg ordered for tobacco abuse disorder Cardiovascular: Irregularly Irregular rate A0fib + RVR HTN Troponin- 0.2400 > 0.2480 > 0.2490 09/24/16 ECHO- LV normal systolic function, normal chamber size, mild/trace triscupid regurg 09/23/16 EKG- sinus tachycardia with PACs, low voltage QRS, possible anteroseptal infarct age undetermined- official read pending Suspect elevated troponin due to demand ischemia Patient refusing cath 300mg Plavix loading dose given 09/25/16 75mg PO daily plavix Cardizem 30mg PO Q6 Lisinopril 20mg po daily Aspirin 81mg po daily Rouvastatin 10mg po hs Hydralazine 10mg IVP q6 PRN SBP >170 Norvasc 10mg PO daily Pulmonary: Patient extubated 8:50AM 10/02/16 Solumedrol 40mg IV q12 Budesonide 0.5mg INH Q12 Duoneb q4 Imagin10/02/16 CXR- Possible small left pleural effusion. No infiltrate. 10/01/16 CXR- No infiltrate. Lines and tubes unchanged. 09/30/16 CXR- No active pulmonary disease. Stable position of tubes. 09/29/16 CXR- Interval improvement in the right lung since the previous exam. 09/28/16 CXR- Interval worsening of heterogeneous opacities at the right lower lung since the previous exam. Appropriate position of the ETT and NG tube. 09/27/16 CXR- ET Tube proximal to the vicente. OG tube distal to diaphragm. Hazy bibasilar atelectasis. 09/26/16 CXR- Lines and tubes in stable position. Biapical pleural thickening with upper lobe granulomatous changes. Mild venous congestion. Chronic interstitial lung markings. Bibasilar airspace opacities 09/26/16 CT Chest- Small pleural effusions in atelectasis likely compressive bilaterally. Otherwise no significant pulmonary abnormalities. Underlying COPD and evidence of lower airway disease. Satisfactory position of support apparatus 09/25/16 CXR- ET tube in good position- official read pending 09/24/16 CXR- mild venous congestion 09/23/16 CXR- Probable Mach artifact with linear lucency in the left mid susie thorax. Mild venous congestion. Elevated right hemidiaphragm. Right hilar prominence. Endotracheal tube extending into the mid thoracic trachea. NG tube extending into the stomach. 09/23/16 CXR- Biapical pleural thickening with upper lobe granulomatous changes. Some airspace opacification at the right lung apex and right hilar region. Scattered nodularity in both lungs most predominant at the lung bases. Increased markings at the lung bases which may represent some patchy atelectasis. Ventilator settings: PRVC Rate 16, PEEP 5, FiO2 50%, TV 450mL AB10/02/16 pH 7.40, CO2 42, O2 75, HCO3 27.3 10/01/16 pH 7.38, CO2 41, O2 86, HCO3 24.3 09/30/16 pH 7.37, CO2 42, O2 97, HCO3 24.0 09/29/16 pH 7.36, CO2 44, O2 92, HCO3 24.3 09/28/16 pH 7.37, CO2 43, O2 85, HCO3 24.4 09/27/16 pH 7.27, CO2 45, O2 87, HCO3 20.1 09/26/16 (11:45) pH 7.24, CO2 57, O2 65, HCO3 21.8 09/26/16 (05:09) pH 7.28, CO2 50, O2 85, HCO3 22 09/25/16 pH 7.28, CO2 53, O2 113, HCO3 23 09/24/16 pH 7.32, CO2 54, O2 352, HCO3 25.4 09/23/16 O2 345 09/23/16 pH 7.22, CO2 80, O2 377, HCO3 26.9 GI: Patient failed repeat swallow evaluation Patient will remain NPO- no meds Re-insert OG tube Protonix 40mg IV daily Rectal Tube- removed 08/29 to no output GI Consult- Dr. Ayala- May have steroid or ICU psychosis, insists she is going home and her family is picking her up today. Rec: Obtain swallow eval in anticipation of solid diet. Lactulose continue. Patient refusing abdominal XR. Gen Surg Consult- Dr. Jimenez- -no surgical intervention at this time- sign off Lactulose 20mg po HS 10/01/16 Abd XR- Mild dilatation of the transverse and ascending colon. No evidence of small bowel obstruction. No masses or abnormal intra-abdominal calcifications. Nasogastric tube tip in left upper quadrant of abdomen. No definite free intraperitoneal air. 09/29/16 CT ABd/Pelv- 1. Cholelithiasis without CT evidence for acute cholecystitis. 2. Colonic distention with air-fluid levels which may represent ileus or pseudo obstruction, no definite evidence of mass or colitis. 3. Mild sigmoid diverticulosis without CT evidence for acute diverticulitis. 4. Several large simple cysts in the left kidney. Nonvisualization of the right kidney. 5. Mild ascites and moderate bilateral pleural effusions. 09/29/16 Abd XR- Moderately dilated bowel loops at the mid to upper abdomen right more than left. If clinically warranted further assessment by CT is suggested. Hematology: No leukocytosis Hgb/Hct stable Bandemia improving 14 > 6 > 8 > 1 > 2 > 1 Endocrine: maintain euglycemia HbA1c- 5.9 Renal: Actue rise in BUN/Cr: improving Hypokalemia - replaced 40mew PO this AM Hypomagnesemia- resolved Pseudohypocalcemia (8.9 corrected) ID: No leukocytosis U/A negative Blood Cx negative DC Abx today 10/03/16 : None MSK: None GI Prophylaxis- pepcid 20mg po daily DVT Prophylaxis- lovenox 40mg sc daily Tommie Levy PGY1 - Date & Time Date: 10/03/16 Time: 12:36 <Ariel Vigil - Last Filed: 10/03/16 17:06> CCU Objective - Vital Signs / Intake & Output Vital Signs (Last 4 hours): Vital Signs Pulse Resp BP Pulse Ox 10/03/16 16:37 85 143/69 99 10/03/16 15:00 107 H 35 H 93 L 10/03/16 14:58 115 H 16 155/68 H 86 L 10/03/16 14:05 111 H 20 93 L 10/03/16 14:00 113 H 18 91 L 10/03/16 13:57 157/71 H Intake and Output (Last 8hrs): Intake & Output 10/03/16 10/03/16 10/03/16 06:59 14:59 22:59 Intake Total 145.4 18.6 Output Total 275 135 Balance -129.6 -116.4 Weight 184 lb 5 oz Intake: Intake, IV Amount 145.4 18.6 Right Forearm 45.4 18.6 Left Hand 100 Output: Urine 275 135 Urethral (Antony) 275 135 - Medications Active Medications: Active Medications Generic Name Dose Route Start Last Admin Trade Name Freq PRN Reason Stop Dose Admin Albuterol/Ipratropium 3 ml 09/30/16 12:00 10/03/16 15:57 Duoneb 3 Mg/0.5 Mg (3 Ml) Ud INH 3 ml RQ4 [facility]NAL Administration Amlodipine Besylate 10 mg 09/29/16 10:00 10/03/16 09:10 Norvasc PO 10 mg DAILY [facility] Administration Aspirin 81 mg 09/24/16 18:30 10/03/16 09:27 Aspirin Chewable PO 81 mg DAILY [facility] Administration Budesonide 0.5 mg 10/02/16 20:00 10/03/16 07:32 Pulmicort Respules INH 0.5 mg RQ12 [facility] Administration Clopidogrel Bisulfate 75 mg 09/26/16 10:00 10/03/16 09:10 Plavix PO 75 mg DAILY [facility] Administration Diltiazem HCl 30 mg 09/26/16 22:15 10/03/16 09:26 Cardizem PO 30 mg Q6H [facility] Administration Enoxaparin Sodium 40 mg 09/26/16 13:00 10/03/16 09:11 Lovenox SC 40 mg DAILY [facility] Administration Famotidine 20 mg 09/29/16 10:00 10/03/16 09:10 Pepcid PO 20 mg DAILY [facility] Administration Hydralazine HCl 10 mg 09/29/16 19:58 09/29/16 20:30 Apresoline IVP 10 mg Q6H PRN Administration Other Insulin Human Regular 0 unit 09/27/16 06:00 10/03/16 12:58 Novolin R SC 2 unit Q6 [facility] Administration Protocol Lactulose 20 gm 09/29/16 22:00 10/02/16 22:00 Enulose PO Not Given HS [facility] Lisinopril 20 mg 09/29/16 09:54 10/03/16 09:10 Zestril NG 20 mg DAILY [facility] Administration Methylprednisolone 40 mg 09/29/16 10:00 10/03/16 09:28 Solu-Medrol IV 40 mg Q12 [facility] Administration Nicotine 1 patch 09/25/16 10:00 10/03/16 09:12 Nicoderm Cq TD 1 patch DAILY [facility] Administration Rosuvastatin Calcium 10 mg 09/23/16 22:00 10/02/16 22:00 Crestor PO Not Given HS [facility] - Patient Studies Lab Studies: Lab Studies 10/03/16 10/03/16 10/03/16 Range/Units 11:18 06:13 05:57 WBC 12.0 H (4.8-10.8) K/uL RBC 4.25 (3.80-5.20) Mil/uL Hgb 12.8 (11.0-16.0) g/dL Hct 38.6 (34.0-47.0) % MCV 90.7 (81.0-99.0) fL MCH 30.0 (27.0-31.0) pg MCHC 33.1 (33.0-37.0) g/dL RDW 14.7 H (11.5-14.5) % Plt Count 178 (130-400) K/uL MPV 9.5 (7.2-11.7) fL Neut % (Auto) 93.9 H (50.0-75.0) % Lymph % (Auto) 3.1 L (20.0-40.0) % [place] % (Auto) 2.8 (0.0-10.0) % Eos % (Auto) 0.0 (0.0-4.0) % Baso % (Auto) 0.2 (0.0-2.0) % Neut # 11.3 H (1.8-7.0) K/uL Lymph # 0.4 L (1.0-4.3) K/uL [place] # 0.3 (0.0-0.8) K/uL Eos # 0.0 (0.0-0.7) K/uL Baso # 0.0 (0.0-0.2) K/uL Neutrophils % (Manual) 94 H (50-75) % Lymphocytes % (Manual) 3 L (20-40) % Monocytes % (Manual) 3 (0-10) % Platelet Estimate Normal (NORMAL) Poikilocytosis (manual Slight Anisocytosis (manual) Slight PT 12.4 H (9.7-12.2) SECONDS INR 1.1 APTT 29 (21-34) SECONDS Sodium 150 H (132-148) mmol/L Potassium 3.4 L (3.6-5.2) mmol/L Chloride 107 (98-107) mmol/L Carbon Dioxide 27 (22-30) mmol/L Anion Gap 19 (10-20) BUN 47 H (7-17) mg/dL Creatinine 1.2 (0.7-1.2) MG/DL Est GFR ( Amer) 52 Est GFR (Non-Af Amer) 43 POC Glucose (mg/dL) 193 H 163 H (65-110) mg/dL Random Glucose 152 H (65-105) mg/dL Calcium 7.9 L (8.6-10.4) mg/dl Phosphorus 3.8 (2.5-4.5) mg/dL Magnesium 2.1 (1.6-2.3) mg/dL Total Bilirubin 0.5 (0.2-1.3) mg/dL AST 26 (14-36) U/L ALT 38 (9-52) U/L Alkaline Phosphatase 39 (38-126) U/L Total Protein 5.1 L (6.3-8.3) g/dL Albumin 2.7 L (3.5-5.0) g/dL Globulin 2.4 (2.2-3.9) gm/dL Albumin/Globulin Ratio 1.2 (1.0-2.1) 10/02/16 10/02/16 10/02/16 Range/Units 23:52 18:03 11:31 WBC (4.8-10.8) K/uL RBC (3.80-5.20) Mil/uL Hgb (11.0-16.0) g/dL Hct (34.0-47.0) % MCV (81.0-99.0) fL MCH (27.0-31.0) pg MCHC (33.0-37.0) g/dL RDW (11.5-14.5) % Plt Count (130-400) K/uL MPV (7.2-11.7) fL Neut % (Auto) (50.0-75.0) % Lymph % (Auto) (20.0-40.0) % [place] % (Auto) (0.0-10.0) % Eos % (Auto) (0.0-4.0) % Baso % (Auto) (0.0-2.0) % Neut # (1.8-7.0) K/uL Lymph # (1.0-4.3) K/uL [place] # (0.0-0.8) K/uL Eos # (0.0-0.7) K/uL Baso # (0.0-0.2) K/uL Neutrophils % (Manual) (50-75) % Lymphocytes % (Manual) (20-40) % Monocytes % (Manual) (0-10) % Platelet Estimate (NORMAL) Poikilocytosis (manual Anisocytosis (manual) PT (9.7-12.2) SECONDS INR APTT (21-34) SECONDS Sodium (132-148) mmol/L Potassium (3.6-5.2) mmol/L Chloride (98-107) mmol/L Carbon Dioxide (22-30) mmol/L Anion Gap (10-20) BUN (7-17) mg/dL Creatinine (0.7-1.2) MG/DL Est GFR ( Amer) Est GFR (Non-Af Amer) POC Glucose (mg/dL) 126 H 93 120 H (65-110) mg/dL Random Glucose (65-105) mg/dL Calcium (8.6-10.4) mg/dl Phosphorus (2.5-4.5) mg/dL Magnesium (1.6-2.3) mg/dL Total Bilirubin (0.2-1.3) mg/dL AST (14-36) U/L ALT (9-52) U/L Alkaline Phosphatase (38-126) U/L Total Protein (6.3-8.3) g/dL Albumin (3.5-5.0) g/dL Globulin (2.2-3.9) gm/dL Albumin/Globulin Ratio (1.0-2.1) Laboratory Results - last 24 hr 10/02/16 10/02/16 10/02/16 11:31 18:03 23:52 WBC RBC Hgb Hct MCV MCH MCHC RDW Plt Count MPV Neut % (Auto) Lymph % (Auto) [place] % (Auto) Eos % (Auto) Baso % (Auto) Neut # Lymph # [place] # Eos # Baso # Neutrophils % (Manual) Lymphocytes % (Manual) Monocytes % (Manual) Platelet Estimate Poikilocytosis (manual Anisocytosis (manual) PT INR APTT Sodium Potassium Chloride Carbon Dioxide Anion Gap BUN Creatinine Est GFR ( Amer) Est GFR (Non-Af Amer) POC Glucose (mg/dL) 120 H 93 126 H Random Glucose Calcium Phosphorus Magnesium Total Bilirubin AST ALT Alkaline Phosphatase Total Protein Albumin Globulin Albumin/Globulin Ratio 10/03/16 10/03/16 10/03/16 05:57 06:13 11:18 WBC 12.0 H RBC 4.25 Hgb 12.8 Hct 38.6 MCV 90.7 MCH 30.0 MCHC 33.1 RDW 14.7 H Plt Count 178 MPV 9.5 Neut % (Auto) 93.9 H Lymph % (Auto) 3.1 L [place] % (Auto) 2.8 Eos % (Auto) 0.0 Baso % (Auto) 0.2 Neut # 11.3 H Lymph # 0.4 L [place] # 0.3 Eos # 0.0 Baso # 0.0 Neutrophils % (Manual) 94 H Lymphocytes % (Manual) 3 L Monocytes % (Manual) 3 Platelet Estimate Normal Poikilocytosis (manual Slight Anisocytosis (manual) Slight PT 12.4 H INR 1.1 APTT 29 Sodium 150 H Potassium 3.4 L Chloride 107 Carbon Dioxide 27 Anion Gap 19 BUN 47 H Creatinine 1.2 Est GFR ( Amer) 52 Est GFR (Non-Af Amer) 43 POC Glucose (mg/dL) 163 H 193 H Random Glucose 152 H Calcium 7.9 L Phosphorus 3.8 Magnesium 2.1 Total Bilirubin 0.5 AST 26 ALT 38 Alkaline Phosphatase 39 Total Protein 5.1 L Albumin 2.7 L Globulin 2.4 Albumin/Globulin Ratio 1.2 Critical Care Progress Note - Nutrition Nutrition: Nutrition Category Date Time Status NPO Diet [DIET] Diets 10/03/16 Lunch Active Attending/Attestation - Attestation I have personally seen and examined this patient.: Yes I have fully participated in the care of the patient.: Yes I have reviewed all pertinent clinical information: Yes Notes (Text): 10/03/16 17:06 Today: September Patient seen and examined, Medical records reviewed Pain issues, skin care, head of the bed elevation, GI/DVT prophylaxis, glycemic control were addressed, And management discussed and formulated. Agree with above treatment plans as transcribed in Dr. Levy note
--- NOTE | 2016-10-03 12:58 | CP.PCM.PN ---
Subjective - Date & Time of Evaluation Date of Evaluation: 10/03/16 Time of Evaluation: 12:55 - Subjective Subjective: F/U abdom distention. Brother is present. Denies RB, melena, diarrhea, fever, hematemesis, hemoptysis, hematuria, SZ, tremor. Objective - Vital Signs/Intake and Output Vital Signs (last 24 hours): Temp Pulse Resp BP Pulse Ox 97 F L 110 H 16 116/56 L 83 L 10/03/16 04:00 10/03/16 12:33 10/03/16 12:33 10/03/16 11:58 10/03/16 12:33 Intake and Output: 10/03/16 10/03/16 06:59 18:59 Intake Total 411.8 18.6 Output Total 405 135 Balance 6.8 -116.4 - Medications Medications: Current Medications Albuterol/Ipratropium (Duoneb 3 Mg/0.5 Mg (3 Ml) Ud) 3 ml INH RQ4 [facility] Last Admin: 10/03/16 11:41 Dose: 3 ml Amlodipine Besylate (Norvasc) 10 mg PO DAILY [facility] Last Admin: 10/03/16 09:10 Dose: 10 mg Aspirin (Aspirin Chewable) 81 mg PO DAILY [facility] Last Admin: 10/03/16 09:27 Dose: 81 mg Budesonide (Pulmicort Respules) 0.5 mg INH RQ12 [facility] Last Admin: 10/03/16 07:32 Dose: 0.5 mg Clopidogrel Bisulfate (Plavix) 75 mg PO DAILY [facility] Last Admin: 10/03/16 09:10 Dose: 75 mg Diltiazem HCl (Cardizem) 30 mg PO Q6H [facility] Last Admin: 10/03/16 09:26 Dose: 30 mg Enoxaparin Sodium (Lovenox) 40 mg SC DAILY [facility] Last Admin: 10/03/16 09:11 Dose: 40 mg Famotidine (Pepcid) 20 mg PO DAILY [facility] Last Admin: 10/03/16 09:10 Dose: 20 mg Hydralazine HCl (Apresoline) 10 mg IVP Q6H PRN PRN Reason: Other Last Admin: 09/29/16 20:30 Dose: 10 mg Insulin Human Regular (Novolin R) 0 unit SC Q6 [facility] PRN Reason: Protocol Last Admin: 10/03/16 06:00 Dose: Not Given Lactulose (Enulose) 20 gm PO [facility] Last Admin: 10/02/16 22:00 Dose: Not Given Lisinopril (Zestril) 20 mg NG DAILY [facility] Last Admin: 10/03/16 09:10 Dose: 20 mg Methylprednisolone (Solu-Medrol) 40 mg IV Q12 [facility] Last Admin: 10/03/16 09:28 Dose: 40 mg Nicotine (Nicoderm Cq) 1 patch TD DAILY [facility] Last Admin: 10/03/16 09:12 Dose: 1 patch Rosuvastatin Calcium (Crestor) 10 mg PO HS [facility] Last Admin: 10/02/16 22:00 Dose: Not Given - Labs Labs: 10/03/16 05:57 10/03/16 05:57 PT 12.4 SECONDS (9.7-12.2) H 10/03/16 05:57 INR 1.1 10/03/16 05:57 APTT 29 SECONDS (21-34) 10/03/16 05:57 - Constitutional Appears: Non-toxic - Respiratory Exam Respiratory Exam: Rhonchi - Cardiovascular Exam Cardiovascular Exam: RRR - GI/Abdominal Exam GI & Abdominal Exam: Distended, Tenderness, Normal Bowel Sounds. absent: Guarding, Mass - Neurological Exam Neurological Exam: Alert, Awake. absent: Oriented x3 Assessment and Plan (1) Respiratory failure Assessment & Plan: extubated. Status: Acute (2) Abdominal distension Assessment & Plan: Less. KUB 3/7 less colon distention. Status: Acute (3) Acute [place] Status: Acute (4) Atrial fibrillation Status: Acute (5) Confusion Status: Acute (6) Dysphagia Assessment & Plan: Check swallowing. Status: Acute
--- NOTE | 2016-10-03 23:33 | CP.PCM.PN ---
Subjective - Date & Time of Evaluation Date of Evaluation: 10/03/16 Time of Evaluation: 12:42 - Subjective Subjective: Pt seen & evaluated, on oxygen, she is confused, anxious and restless and hypoxic with saturation of 78% Objective - Vital Signs/Intake and Output Vital Signs (last 24 hours): Temp Pulse Resp BP Pulse Ox 98.3 F 114 H 23 156/92 H 93 L 10/03/16 12:00 10/03/16 20:05 10/03/16 20:05 10/03/16 20:05 10/03/16 20:05 Intake and Output: 10/03/16 10/04/16 18:59 06:59 Intake Total 18.6 Output Total 135 0 Balance -116.4 0 - Medications Medications: Current Medications Albuterol/Ipratropium (Duoneb 3 Mg/0.5 Mg (3 Ml) Ud) 3 ml INH RQ4 [facility] Last Admin: 10/03/16 19:21 Dose: 3 ml Amlodipine Besylate (Norvasc) 10 mg PO DAILY [facility] Last Admin: 10/03/16 09:10 Dose: 10 mg Aspirin (Aspirin Chewable) 81 mg PO DAILY [facility] Last Admin: 10/03/16 09:27 Dose: 81 mg Budesonide (Pulmicort Respules) 0.5 mg INH RQ12 [facility] Last Admin: 10/03/16 19:21 Dose: 0.5 mg Clopidogrel Bisulfate (Plavix) 75 mg PO DAILY [facility] Last Admin: 10/03/16 09:10 Dose: 75 mg Diltiazem HCl (Cardizem) 30 mg PO Q6H [facility] Last Admin: 10/03/16 22:14 Dose: 30 mg Enoxaparin Sodium (Lovenox) 40 mg SC DAILY [facility] Last Admin: 10/03/16 09:11 Dose: 40 mg Famotidine (Pepcid) 20 mg PO DAILY [facility] Last Admin: 10/03/16 09:10 Dose: 20 mg Hydralazine HCl (Apresoline) 10 mg IVP Q6H PRN PRN Reason: Other Last Admin: 09/29/16 20:30 Dose: 10 mg Insulin Human Regular (Novolin R) 0 unit SC Q6 [facility] PRN Reason: Protocol Last Admin: 10/03/16 19:01 Dose: Not Given Lactulose (Enulose) 20 gm PO HS [facility] Last Admin: 10/03/16 22:15 Dose: 20 gm Lisinopril (Zestril) 20 mg NG DAILY [facility] Last Admin: 10/03/16 09:10 Dose: 20 mg Methylprednisolone (Solu-Medrol) 40 mg IV Q12 [facility] Last Admin: 10/03/16 22:13 Dose: 40 mg Nicotine (Nicoderm Cq) 1 patch TD DAILY [facility] Last Admin: 10/03/16 09:12 Dose: 1 patch Rosuvastatin Calcium (Crestor) 10 mg PO HS [facility] Last Admin: 10/03/16 22:13 Dose: 10 mg - Labs Labs: 10/03/16 05:57 10/03/16 05:57 PT 12.4 SECONDS (9.7-12.2) H 10/03/16 05:57 INR 1.1 10/03/16 05:57 APTT 29 SECONDS (21-34) 10/03/16 05:57 - Constitutional Appears: No Acute Distress, Confused, Chronically Ill - Head Exam Head Exam: ATRAUMATIC, NORMAL INSPECTION, NORMOCEPHALIC - Eye Exam Eye Exam: EOMI, Normal appearance, PERRL Pupil Exam: NORMAL ACCOMODATION, PERRL - Respiratory Exam Respiratory Exam: Clear to Ausculation Bilateral, NORMAL BREATHING PATTERN - Cardiovascular Exam Cardiovascular Exam: REGULAR RHYTHM, +S1, +S2. absent: Murmur - GI/Abdominal Exam GI & Abdominal Exam: Soft, Normal Bowel Sounds. absent: Tenderness Assessment and Plan (1) Acute respiratory failure with hypoxia and hypercarbia Status: Resolved (2) Altered mental status Status: Resolved (3) Acute [place] Status: Acute (4) Dehydration Status: Acute - Assessment and Plan (Free Text) Assessment: continue current medications and care of plan
[2016-10-04] MEDS: Albuterol-Ipratrop 3 mg / 0.5 (3 ml) UD INH SCH ×6 (00:18→19:41)
[2016-10-04] MEDS: (Novolin R) Insulin Human Regular 100 units/ml vial SC SCH ×5 (05:55→21:46)
[2016-10-04 06:29] LABS: BASO % 0.1 % (0.0-2.0); HEMATOCRIT 42.8 % (34.0-47.0); LYMPH # 0.4 K/uL (1.0-4.3); LYMPH % 1.9 % (20.0-40.0); MEAN CELL VOLUME 90.9 fL (81.0-99.0); MEAN CORPUSCULAR HEMOGLOBIN 30.1 pg (27.0-31.0); MEAN CORPUSCULAR HGB CONC 33.1 g/dL (33.0-37.0); MEAN PLATELET VOLUME 9.4 fL (7.2-11.7); MONO # 0.5 K/uL (0.0-0.8); MONO % 2.6 % (0.0-10.0); PLATELET COUNT 272 K/uL (130-400); RED CELL DISTRIBUTION WIDTH 14.5 % (11.5-14.5); WHITE BLOOD COUNT 20.1 K/uL (4.8-10.8)
[2016-10-04 06:33] LABS: POTASSIUM 3.8 mmol/L (3.6-5.2)
[2016-10-04 06:35] LABS: ALB/GLOB RATIO 1.3 (1.0-2.1); BILIRUBIN,TOTAL 0.6 mg/dL (0.2-1.3); TOTAL PROTEIN 5.4 g/dL (6.3-8.3)
[2016-10-04 06:36] LABS: CALCIUM 8.6 mg/dl (8.6-10.4); MAGNESIUM 2.2 mg/dL (1.6-2.3); PHOSPHOROUS 2.5 mg/dL (2.5-4.5)
[2016-10-04 06:39] LABS: INR 1.2
[2016-10-04] MEDS: Budesonide 0.5 mg/2 ml Inhal Susp UD INH SCH ×2 (07:25→19:41)
--- NOTE | 2016-10-04 08:00 | CP.PCM.PN ---
Subjective - Date & Time of Evaluation Date of Evaluation: 10/04/16 Time of Evaluation: 07:58 - Subjective Subjective: F/U abdom distention. Tachcardic. No RB, melena, chills, diaph, hematuria, hemoptysis, hematemesis, arthralgia, myalgia Objective - Vital Signs/Intake and Output Vital Signs (last 24 hours): Temp Pulse Resp BP Pulse Ox 98.3 F 139 H 29 H 145/90 94 L 10/03/16 12:00 10/04/16 07:00 10/04/16 07:00 10/04/16 07:02 10/04/16 07:00 Intake and Output: 10/04/16 10/04/16 06:59 18:59 Intake Total 75 15 Output Total 201 Balance -126 15 - Medications Medications: Current Medications Albuterol/Ipratropium (Duoneb 3 Mg/0.5 Mg (3 Ml) Ud) 3 ml INH RQ4 [facility] Last Admin: 10/04/16 07:25 Dose: 3 ml Amlodipine Besylate (Norvasc) 10 mg PO DAILY [facility] Last Admin: 10/03/16 09:10 Dose: 10 mg Aspirin (Aspirin Chewable) 81 mg PO DAILY [facility] Last Admin: 10/03/16 09:27 Dose: 81 mg Budesonide (Pulmicort Respules) 0.5 mg INH RQ12 [facility] Last Admin: 10/04/16 07:25 Dose: 0.5 mg Clopidogrel Bisulfate (Plavix) 75 mg PO DAILY [facility] Last Admin: 10/03/16 09:10 Dose: 75 mg Enoxaparin Sodium (Lovenox) 40 mg SC DAILY [facility] Last Admin: 10/03/16 09:11 Dose: 40 mg Famotidine (Pepcid) 20 mg PO DAILY [facility] Last Admin: 10/03/16 09:10 Dose: 20 mg Hydralazine HCl (Apresoline) 10 mg IVP Q6H PRN PRN Reason: Other Last Admin: 10/04/16 01:24 Dose: 10 mg Diltiazem HCl 125 mg/ Dextrose 125 mls @ 10 mls/hr IV .[id number] [facility]; 10 MG/HR PRN Reason: Protocol Last Admin: 10/04/16 06:08 Dose: 15 mls/hr Amiodarone HCl 900 mg/ (Dextrose) 500 mls @ 33.33 mls/hr IV .Q15H1M [facility]; 1 MG/ MIN PRN Reason: Protocol Stop: 10/04/16 22:36 Insulin Human Regular (Novolin R) 0 unit SC Q6 [facility] PRN Reason: Protocol Last Admin: 10/04/16 05:55 Dose: Not Given Lactulose (Enulose) 20 gm PO HS [facility] Last Admin: 10/03/16 22:15 Dose: 20 gm Lisinopril (Zestril) 20 mg NG DAILY [facility] Last Admin: 10/03/16 09:10 Dose: 20 mg Methylprednisolone (Solu-Medrol) 40 mg IV Q12 [facility] Last Admin: 10/03/16 22:13 Dose: 40 mg Nicotine (Nicoderm Cq) 1 patch TD DAILY [facility] Last Admin: 10/03/16 09:12 Dose: 1 patch Rosuvastatin Calcium (Crestor) 10 mg PO HS [facility] Last Admin: 10/03/16 22:13 Dose: 10 mg - Labs Labs: 10/04/16 06:22 10/04/16 06:22 PT 13.6 SECONDS (9.7-12.2) H 10/04/16 06:22 INR 1.2 10/04/16 06:22 APTT 27 SECONDS (21-34) 10/04/16 06:22 - Constitutional Appears: Confused - Respiratory Exam Respiratory Exam: Rhonchi - Cardiovascular Exam Cardiovascular Exam: Tachycardia - GI/Abdominal Exam GI & Abdominal Exam: Distended, Normal Bowel Sounds. absent: Guarding - Extremities Exam Extremities Exam: absent: Calf Tenderness - Neurological Exam Neurological Exam: absent: Oriented x3 Assessment and Plan (1) Respiratory failure Assessment & Plan: extubated Status: Acute (2) Abdominal distension Assessment & Plan: Colon ileus. KUB less colon distention. Status: Acute (3) Acute [place] Status: Acute (4) Atrial fibrillation Assessment & Plan: Tachycardic. Status: Acute (5) Confusion Status: Acute (6) Dysphagia Assessment & Plan: Check swallowing ability. Status: Acute (7) Hypernatremia Status: Acute (8) Leucocytosis Assessment & Plan: Check for infection. Check c difficile. Status: Acute
[2016-10-04 09:07] LABS: NEUTROPHIL 95 % (50-75); TOTAL CELLS COUNTED 100
[2016-10-04] MEDS: Enoxaparin 40 mg Syringe SC SCH (09:42)
[2016-10-04] MEDS: MethylPREDNISolone 40 mg Vial IV SCH ×2 (09:45→21:56)
[2016-10-04] MEDS ORDERED: Lactated Ringer's 1,000 ML IV SCH (12:45)
--- NOTE | 2016-10-04 14:09 | CP.PCM.PN ---
Subjective - Date & Time of Evaluation Date of Evaluation: 10/04/16 Time of Evaluation: 13:55 - Subjective Subjective: Patient seen and examined in the intensive care unit. responsive in no respiratory distress periods of confusion and restlessness Failed swallowing eval Objective - Vital Signs/Intake and Output Vital Signs (last 24 hours): Temp Pulse Resp BP Pulse Ox 97.7 F 100 H 24 150/82 94 L 10/04/16 08:00 10/04/16 13:16 10/04/16 13:16 10/04/16 13:16 10/04/16 13:16 Intake and Output: 10/04/16 10/04/16 06:59 18:59 Intake Total 75 290.9 Output Total 201 Balance -126 290.9 - Medications Medications: Current Medications Albuterol/Ipratropium (Duoneb 3 Mg/0.5 Mg (3 Ml) Ud) 3 ml INH RQ4 [facility] Last Admin: 10/04/16 11:23 Dose: 3 ml Amlodipine Besylate (Norvasc) 10 mg PO DAILY [facility] Last Admin: 10/04/16 09:42 Dose: 10 mg Aspirin (Aspirin Chewable) 81 mg PO DAILY [facility] Last Admin: 10/04/16 09:42 Dose: 81 mg Budesonide (Pulmicort Respules) 0.5 mg INH RQ12 [facility] Last Admin: 10/04/16 07:25 Dose: 0.5 mg Clopidogrel Bisulfate (Plavix) 75 mg PO DAILY [facility] Last Admin: 10/04/16 09:42 Dose: 75 mg Enoxaparin Sodium (Lovenox) 40 mg SC DAILY [facility] Last Admin: 10/04/16 09:42 Dose: 40 mg Famotidine (Pepcid) 20 mg PO DAILY [facility] Last Admin: 10/04/16 09:42 Dose: 20 mg Hydralazine HCl (Apresoline) 10 mg IVP Q6H PRN PRN Reason: Other Last Admin: 10/04/16 01:24 Dose: 10 mg Diltiazem HCl 125 mg/ Dextrose 125 mls @ 10 mls/hr IV .[id number] [facility]; 10 MG/HR PRN Reason: Protocol Last Admin: 10/04/16 13:16 Dose: 15 mls/hr Amiodarone HCl 900 mg/ (Dextrose) 500 mls @ 33.33 mls/hr IV .Q15H1M [facility]; 1 MG/ MIN PRN Reason: Protocol Stop: 10/04/16 22:36 Last Admin: 10/04/16 08:49 Dose: 33.33 mls/hr Lactated Ringer's (Lactated Ringer's) 1,000 mls @ 100 mls/hr IV .Q10H [facility] Stop: 10/05/16 08:44 Last Admin: 10/04/16 13:15 Dose: 100 mls/hr Insulin Human Regular (Novolin R) 0 unit SC Q6 [facility] PRN Reason: Protocol Last Admin: 10/04/16 12:10 Dose: 2 unit Lactulose (Enulose) 20 gm PO HS [facility] Last Admin: 10/03/16 22:15 Dose: 20 gm Lisinopril (Zestril) 20 mg NG DAILY [facility] Last Admin: 10/04/16 09:42 Dose: 20 mg Methylprednisolone (Solu-Medrol) 40 mg IV Q12 [facility] Last Admin: 10/04/16 09:45 Dose: 40 mg Nicotine (Nicoderm Cq) 1 patch TD DAILY [facility] Last Admin: 10/04/16 09:43 Dose: 1 patch Rosuvastatin Calcium (Crestor) 10 mg PO HS [facility] Last Admin: 10/03/16 22:13 Dose: 10 mg - Labs Labs: 10/04/16 06:22 10/04/16 06:22 PT 13.6 SECONDS (9.7-12.2) H 10/04/16 06:22 INR 1.2 10/04/16 06:22 APTT 27 SECONDS (21-34) 10/04/16 06:22 - Head Exam Head Exam: ATRAUMATIC, NORMOCEPHALIC - Eye Exam Eye Exam: Normal appearance - ENT Exam ENT Exam: Mucous Membranes Moist - Neck Exam Neck Exam: Normal Inspection - Respiratory Exam Respiratory Exam: Decreased Breath Sounds - Cardiovascular Exam Cardiovascular Exam: REGULAR RHYTHM - GI/Abdominal Exam GI & Abdominal Exam: Soft, Normal Bowel Sounds - Extremities Exam Extremities Exam: Normal Inspection Assessment and Plan (1) Acute respiratory failure with hypoxia and hypercarbia Assessment & Plan: Status post extubation in no respiratory distress Periods of confusion Continue steroids and nebulizer treatment NGT feeding Status: Acute (2) Acute [place] Status: Acute
--- NOTE | 2016-10-04 17:38 | CP.CCUPN ---
<Fabian Levy - Last Filed: 10/04/16 17:25> CCU Subjective - Physician Review Subjective (Free Text): 09/24/16 13:39 Patient was seen and examined at bedside. No acute distress on ventilator. No acute events overnight. Nursing staff reports no issues. Patient is resting comfortably on the bed, maintained on a propofol drip 10mcg/kg/min. Patient is lethargic but awakens to voice, follows command. Denies any pain or complaints aside from the ventilator. Hypercarbia has improved on todays ABG. 09/25/16 10:20 Patient was seen and examined at bedside. No acute distress on ventilator. No acute events overnight. Nursing staff reports no issues. Patient is resting comfortably on the bed. Patient is on cPAP. Patient is planned for extubation today. Hypercarbia has stabilized. Patient is likely at her baseline. Today, nicotine patch was ordered and a fluid challenge (250cc bolus) due to acute rise in BUN/Cr. 09/26/16 13:51 Patient was seen and examined at bedside. No acute distress on ventilator. No acute events overnight. Patient was trialed on CPAP yesterday [id number]. Patient had poor inspiratory volumes and was placed back on vent. The patient was again tried on CPAP this morning but could not maintain adequate tidal volume. The patient was placed back on the ventilator at an increased rate to decrease her PCO2. Today, the patients respiratory rate was increased to 16. A CT of the Chest was ordered. Feeds were restarted, and lovenox 40mg sc daily was started for dvt prophylaxis. 09/27/16 08:40 Patient was seen and examined at bedside. No acute distress on ventilator. No acute events overnight. Nursing staff reports no issues. Patient remains intubated (TV 450mL, FiO2 50%, Rate 16, PEEP 5) and sedated 0.2mcg/kg/hr on prededex. The patient has bee trialed x2 with CPAP and not tolerated. The patient has continued to have a respiratory acidosis. The patient was tachycardic 5mg of Lopressor was given IV x1 and Cardizem 30mg PO q6 was started. Today, the patient was started on lisinopril for HTN. Hydralazine IV was added PRN for HTN coverage for SBP >170mmHg. The patient was again tried on CPAP 15/ 5 but could not tolerate the transition and thus was put back on PRVC. 09/30/16 12:18 Patient was seen and examined at bedside. No acute distress on ventilator. No acute events overnight. Nursing staff reports no issues. Patient remains intubated (TV 450mL, FiO2 50%, Rate 16, PEEP 5). The patient will be trialed on CPAP 15/5 for possible extubation today. Today, the patient was taken off PRVC and placed on 15/5 CPAP with pressure support for extubation trial. The patient's magnesium was replaced and duonebs reordered q4 juvenal. 10/01/16 13:27 Patient was seen and examined at bedside. No acute distress on ventilator. No acute events overnight. Nursing staff reports no issues. Patient remains intubated (TV 450mL, FiO2 50%, Rate 16, PEEP 5) with a peak pressure of [id number] on PRVC. The patient has complaint of abdominal pain this morning. Her stomach appears grossly distended. GI and general surgery have been consulted to see the patient. The nursing staff reports multiple episodes of diarrhea without formed stool elements. Today, the patient will again be trialed on CPAP with pressure support for possible extubation. 10/02/16 14:37 Patient was seen and examined at bedside. No acute distress. No acute events overnight. Nursing staff reports no issues. Patient remains intubated and will be extubated today. This morning, the patient is agitated with her current intubation status and refused all abdominal imaging studies. Today, the patient was extubated at 8:50AM and has since tolerated breathing on her own well. She is currently sating well on 50% O2 on venti mask. 10/03/16 12:27 Patient was seen and examined at bedside. No acute distress. No acute events overnight. Nursing staff reports no issues. Patient was extubated yesterday 10/02. The patient remains tachypneic. The patient was unable to pass swallow eval yesterday 08/29 to desatuation during the study. The study will be repeated today. The patient reports that she wants to go home again today, but denies all complaints. Today, the patient will be assessed for swallow evaluation. Her potassium was replaced during rounds. 10/04/16 17:26 Patient was seen and examined at bedside. No acute distress. No acute events overnight. Nursing staff reports no issues. Patient was extubated 10/02/16. The patient is currently sating in the low 90s on venti mask. The patient has passed a swallow evaluation and will begin feeds today. The patient denies complaints this morning. The patient denies fever, chills, headache, chest pain , SOB, cough, abdominal pain, N/V/D/C, and changes in bowel/bladder. Today, the patient passed swallow evaluation and will be started on a diet. Critical Care Time Spent (in minutes): 90 CCU Objective - Vital Signs / Intake & Output Vital Signs (Last 4 hours): Vital Signs Temp Pulse Resp BP Pulse Ox 10/04/16 17:00 101 H 25 H 151/84 H 92 L 10/04/16 16:00 98.2 F 100 H 25 H 155/82 H 94 L 10/04/16 15:00 100 H 24 155/86 H 94 L 10/04/16 14:00 104 H 26 H 150/75 93 L Intake and Output (Last 8hrs): Intake & Output 10/04/16 10/04/16 10/04/16 06:59 14:59 22:59 Intake Total 25 875.8 564.9 Output Total 200 300 200 Balance -175 575.8 364.9 Weight 72.206 kg Intake: Intake, IV Amount 25 635.8 444.9 Right Forearm 25 320 345 Right Wrist 315.8 99.9 Oral 240 120 Output: Urine 200 300 200 Urine, Voided 200 300 200 Other: # Bowel Movements 0 - Physical Exam Head: Positive for: Atraumatic, Normocephalic, Other (ET Tube in place) Pupils: Positive for: PERRL Extroacular Muscles: Positive for: EOMI Mouth: Positive for: Dry Respiratory/Chest: Positive for: Clear to Auscultation, Good Air Exchange, Rales , Tachypneic. Negative for: Respiratory Distress, Accessory Muscle Use Cardiovascular: Positive for: Normal S1, S2, Irregular Rhythm. Negative for: Regular Rate and Rhythm, Murmurs Abdomen: Positive for: Tenderness, Distention, Normal Bowel Sounds, Guarding. Negative for: Peritoneal Signs, Rebound Upper Extremity: Positive for: Normal Inspection. Negative for: Cyanosis, Edema Lower Extremity: Positive for: Normal Inspection. Negative for: Edema, CALF TENDERNESS Neurological: Positive for: CN II-XII Intact Skin: Positive for: Warm, Dry Psychiatric: Positive for: Alert - Medications Active Medications: Active Medications Generic Name Dose Route Start Last Admin Trade Name Freq PRN Reason Stop Dose Admin Albuterol/Ipratropium 3 ml 09/30/16 12:00 10/04/16 16:01 Duoneb 3 Mg/0.5 Mg (3 Ml) Ud INH 3 ml RQ4 JUVENAL Administration Amlodipine Besylate 10 mg 09/29/16 10:00 10/04/16 09:42 Norvasc PO 10 mg DAILY JUVENAL Administration Aspirin 81 mg 09/24/16 18:30 10/04/16 09:42 Aspirin Chewable PO 81 mg DAILY JUVENAL Administration Budesonide 0.5 mg 10/02/16 20:00 10/04/16 07:25 Pulmicort Respules INH 0.5 mg RQ12 JUVENAL Administration Clopidogrel Bisulfate 75 mg 09/26/16 10:00 10/04/16 09:42 Plavix PO 75 mg DAILY JUVENAL Administration Enoxaparin Sodium 40 mg 09/26/16 13:00 10/04/16 09:42 Lovenox SC 40 mg DAILY JUVENAL Administration Famotidine 20 mg 09/29/16 10:00 10/04/16 09:42 Pepcid PO 20 mg DAILY JUVENAL Administration Hydralazine HCl 10 mg 09/29/16 19:58 10/04/16 01:24 Apresoline IVP 10 mg Q6H PRN Administration Other Diltiazem HCl 125 mg/ Dextrose 125 mls @ 10 mls/hr 10/04/16 05:30 10/04/16 13: 16 IV 15 mls/hr .[id number] JUVENAL Administration Protocol 10 MG/HR Amiodarone HCl 900 mg/ 500 mls @ 33.33 mls/hr 10/04/16 07:36 10/04/16 08:49 Dextrose IV 10/04/16 22:36 33.33 mls/hr .[id number] ONE Administration Protocol 1 MG/MIN Lactated Ringer's 1,000 mls @ 100 mls/hr 10/04/16 12:45 10/04/16 13:15 Lactated Ringer's IV 10/05/16 08:44 100 mls/hr .Q10H JUVENAL Administration Insulin Human Regular 0 unit 10/04/16 17:00 10/04/16 17:00 Novolin R SC 3 unit ACHS JUVENAL Administration Protocol Lactulose 20 gm 09/29/16 22:00 10/03/16 22:15 Enulose PO 20 gm HS JUVENAL Administration Lisinopril 20 mg 09/29/16 09:54 10/04/16 09:42 Zestril NG 20 mg DAILY JUVENAL Administration Methylprednisolone 40 mg 09/29/16 10:00 10/04/16 09:45 Solu-Medrol IV 40 mg Q12 JUVENAL Administration Nicotine 1 patch 09/25/16 10:00 10/04/16 09:43 Nicoderm Cq TD 1 patch DAILY JUVENAL Administration Rosuvastatin Calcium 10 mg 09/23/16 22:00 10/03/16 22:13 Crestor PO 10 mg HS JUVENAL Administration - Patient Studies Lab Studies: Lab Studies 10/04/16 10/04/16 10/04/16 Range/Units 16:44 12:03 06:22 WBC 20.1 H D (4.8-10.8) K/uL RBC 4.71 (3.80-5.20) Mil/uL Hgb 14.2 (11.0-16.0) g/dL Hct 42.8 (34.0-47.0) % MCV 90.9 (81.0-99.0) fL MCH 30.1 (27.0-31.0) pg MCHC 33.1 (33.0-37.0) g/dL RDW 14.5 (11.5-14.5) % Plt Count 272 (130-400) K/uL MPV 9.4 (7.2-11.7) fL Neut % (Auto) 95.4 H (50.0-75.0) % Lymph % (Auto) 1.9 L (20.0-40.0) % [place] % (Auto) 2.6 (0.0-10.0) % Eos % (Auto) 0.0 (0.0-4.0) % Baso % (Auto) 0.1 (0.0-2.0) % Neut # 19.1 H (1.8-7.0) K/uL Lymph # 0.4 L (1.0-4.3) K/uL [place] # 0.5 (0.0-0.8) K/uL Eos # 0.0 (0.0-0.7) K/uL Baso # 0.0 (0.0-0.2) K/uL Neutrophils % (Manual) 95 H (50-75) % Band Neutrophils % 1 (0-2) % Lymphocytes % (Manual) 2 L (20-40) % Monocytes % (Manual) 2 (0-10) % Platelet Estimate Normal (NORMAL) RBC Morphology Normal PT 13.6 H (9.7-12.2) SECONDS INR 1.2 APTT 27 (21-34) SECONDS Sodium 153 H (132-148) mmol/L Potassium 3.8 (3.6-5.2) mmol/L Chloride 109 H (98-107) mmol/L Carbon Dioxide 27 (22-30) mmol/L Anion Gap 21 H (10-20) BUN 43 H (7-17) mg/dL Creatinine 1.1 (0.7-1.2) MG/DL Est GFR ( Amer) 57 Est GFR (Non-Af Amer) 47 POC Glucose (mg/dL) 218 H 160 H (65-110) mg/dL Random Glucose 167 H (65-105) mg/dL Calcium 8.6 (8.6-10.4) mg/dl Phosphorus 2.5 (2.5-4.5) mg/dL Magnesium 2.2 (1.6-2.3) mg/dL Total Bilirubin 0.6 (0.2-1.3) mg/dL AST 33 (14-36) U/L ALT 42 (9-52) U/L Alkaline Phosphatase 48 (38-126) U/L Total Protein 5.4 L (6.3-8.3) g/dL Albumin 3.0 L (3.5-5.0) g/dL Globulin 2.4 (2.2-3.9) gm/dL Albumin/Globulin Ratio 1.3 (1.0-2.1) 10/04/16 10/04/16 10/03/16 Range/Units 05:21 00:25 17:54 WBC (4.8-10.8) K/uL RBC (3.80-5.20) Mil/uL Hgb (11.0-16.0) g/dL Hct (34.0-47.0) % MCV (81.0-99.0) fL MCH (27.0-31.0) pg MCHC (33.0-37.0) g/dL RDW (11.5-14.5) % Plt Count (130-400) K/uL MPV (7.2-11.7) fL Neut % (Auto) (50.0-75.0) % Lymph % (Auto) (20.0-40.0) % [place] % (Auto) (0.0-10.0) % Eos % (Auto) (0.0-4.0) % Baso % (Auto) (0.0-2.0) % Neut # (1.8-7.0) K/uL Lymph # (1.0-4.3) K/uL [place] # (0.0-0.8) K/uL Eos # (0.0-0.7) K/uL Baso # (0.0-0.2) K/uL Neutrophils % (Manual) (50-75) % Band Neutrophils % (0-2) % Lymphocytes % (Manual) (20-40) % Monocytes % (Manual) (0-10) % Platelet Estimate (NORMAL) RBC Morphology PT (9.7-12.2) SECONDS INR APTT (21-34) SECONDS Sodium (132-148) mmol/L Potassium (3.6-5.2) mmol/L Chloride (98-107) mmol/L Carbon Dioxide (22-30) mmol/L Anion Gap (10-20) BUN (7-17) mg/dL Creatinine (0.7-1.2) MG/DL Est GFR ( Amer) Est GFR (Non-Af Amer) POC Glucose (mg/dL) 144 H 138 H 149 H (65-110) mg/dL Random Glucose (65-105) mg/dL Calcium (8.6-10.4) mg/dl Phosphorus (2.5-4.5) mg/dL Magnesium (1.6-2.3) mg/dL Total Bilirubin (0.2-1.3) mg/dL AST (14-36) U/L ALT (9-52) U/L Alkaline Phosphatase (38-126) U/L Total Protein (6.3-8.3) g/dL Albumin (3.5-5.0) g/dL Globulin (2.2-3.9) gm/dL Albumin/Globulin Ratio (1.0-2.1) Laboratory Results - last 24 hr 10/03/16 10/04/16 10/04/16 17:54 00:25 05:21 WBC RBC Hgb Hct MCV MCH MCHC RDW Plt Count MPV Neut % (Auto) Lymph % (Auto) [place] % (Auto) Eos % (Auto) Baso % (Auto) Neut # Lymph # [place] # Eos # Baso # Neutrophils % (Manual) Band Neutrophils % Lymphocytes % (Manual) Monocytes % (Manual) Platelet Estimate RBC Morphology PT INR APTT Sodium Potassium Chloride Carbon Dioxide Anion Gap BUN Creatinine Est GFR ( Amer) Est GFR (Non-Af Amer) POC Glucose (mg/dL) 149 H 138 H 144 H Random Glucose Calcium Phosphorus Magnesium Total Bilirubin AST ALT Alkaline Phosphatase Total Protein Albumin Globulin Albumin/Globulin Ratio 10/04/16 10/04/16 10/04/16 06:22 12:03 16:44 WBC 20.1 H D RBC 4.71 Hgb 14.2 Hct 42.8 MCV 90.9 MCH 30.1 MCHC 33.1 RDW 14.5 Plt Count 272 MPV 9.4 Neut % (Auto) 95.4 H Lymph % (Auto) 1.9 L [place] % (Auto) 2.6 Eos % (Auto) 0.0 Baso % (Auto) 0.1 Neut # 19.1 H Lymph # 0.4 L [place] # 0.5 Eos # 0.0 Baso # 0.0 Neutrophils % (Manual) 95 H Band Neutrophils % 1 Lymphocytes % (Manual) 2 L Monocytes % (Manual) 2 Platelet Estimate Normal RBC Morphology Normal PT 13.6 H INR 1.2 APTT 27 Sodium 153 H Potassium 3.8 Chloride 109 H Carbon Dioxide 27 Anion Gap 21 H BUN 43 H Creatinine 1.1 Est GFR ( Amer) 57 Est GFR (Non-Af Amer) 47 POC Glucose (mg/dL) 160 H 218 H Random Glucose 167 H Calcium 8.6 Phosphorus 2.5 Magnesium 2.2 Total Bilirubin 0.6 AST 33 ALT 42 Alkaline Phosphatase 48 Total Protein 5.4 L Albumin 3.0 L Globulin 2.4 Albumin/Globulin Ratio 1.3 Fingerstick Blood Sugar Results: 218 Review of Systems - Review of Systems All systems: reviewed and no additional remarkable complaints except Critical Care Progress Note - Nutrition Nutrition: Nutrition Category Date Time Status Pureed [Dysphagia/Modified Consistency Diet] [DIET] Diets 10/04/16 Lunch Active Assessment/Plan (1) Respiratory failure Current Visit: Yes Status: Resolved Priority: High (2) Abdominal distension Current Visit: Yes Status: Resolved (3) Acute respiratory failure with hypoxia and hypercarbia Current Visit: Yes Status: Resolved (4) Altered mental status Current Visit: Yes Status: Resolved (5) CO2 narcosis Current Visit: Yes Status: Resolved (6) Confusion Current Visit: Yes Status: Resolved (7) Dehydration Current Visit: Yes Status: Acute (8) Hypernatremia Current Visit: Yes Status: Acute (9) COPD (chronic obstructive pulmonary disease) Current Visit: Yes Status: Chronic (10) Dependent on ventilator Current Visit: Yes Status: Resolved (11) Tobacco abuse Current Visit: Yes Status: Chronic (12) Tobacco abuse counseling Current Visit: Yes Status: Chronic - Assessment and Plan (Free Text) Assessment: This is an 86 y/o female with a suspected PMH of smoking, COPD, and HTN presenting with respiratory failure and hypercarbic encephalopathy. The patient has repeatedly failed CPAP trial with pressure support in attempt to extubate. The patient was extubated 10/02/16. Plan: Neuro: Patient awake and alert Denies pain or discomfort 09/23/16 CT Head- Generalized atrophy. Nonspecific white matter changes. Nicotine patch 21mg ordered for tobacco abuse disorder Cardiovascular: Irregularly Irregular rate A0fib + RVR HTN Troponin- 0.2400 > 0.2480 > 0.2490 09/24/16 ECHO- LV normal systolic function, normal chamber size, mild/trace triscupid regurg 09/23/16 EKG- sinus tachycardia with PACs, low voltage QRS, possible anteroseptal infarct age undetermined- official read pending Suspect elevated troponin due to demand ischemia Patient refusing cath 300mg Plavix loading dose given 09/25/16 75mg PO daily plavix Cardizem 125mg drip at PO Q6 Lisinopril 20mg po daily Aspirin 81mg po daily Rouvastatin 10mg po hs Hydralazine 10mg IVP q6 PRN SBP >170 Norvasc 10mg PO daily Amiodarone 200 started Pulmonary: Patient extubated 8:50AM 10/02/16 Solumedrol 40mg IV q12 Budesonide 0.5mg INH Q12 Duoneb q4 Imagin10/02/16 CXR- Possible small left pleural effusion. No infiltrate. 10/01/16 CXR- No infiltrate. Lines and tubes unchanged. 09/30/16 CXR- No active pulmonary disease. Stable position of tubes. 09/29/16 CXR- Interval improvement in the right lung since the previous exam. 09/28/16 CXR- Interval worsening of heterogeneous opacities at the right lower lung since the previous exam. Appropriate position of the ETT and NG tube. 09/27/16 CXR- ET Tube proximal to the vicente. OG tube distal to diaphragm. Hazy bibasilar atelectasis. 09/26/16 CXR- Lines and tubes in stable position. Biapical pleural thickening with upper lobe granulomatous changes. Mild venous congestion. Chronic interstitial lung markings. Bibasilar airspace opacities 09/26/16 CT Chest- Small pleural effusions in atelectasis likely compressive bilaterally. Otherwise no significant pulmonary abnormalities. Underlying COPD and evidence of lower airway disease. Satisfactory position of support apparatus 09/25/16 CXR- ET tube in good position- official read pending 09/24/16 CXR- mild venous congestion 09/23/16 CXR- Probable Mach artifact with linear lucency in the left mid susie thorax. Mild venous congestion. Elevated right hemidiaphragm. Right hilar prominence. Endotracheal tube extending into the mid thoracic trachea. NG tube extending into the stomach. 09/23/16 CXR- Biapical pleural thickening with upper lobe granulomatous changes. Some airspace opacification at the right lung apex and right hilar region. Scattered nodularity in both lungs most predominant at the lung bases. Increased markings at the lung bases which may represent some patchy atelectasis. Ventilator settings: PRVC Rate 16, PEEP 5, FiO2 50%, TV 450mL AB10/02/16 pH 7.40, CO2 42, O2 75, HCO3 27.3 10/01/16 pH 7.38, CO2 41, O2 86, HCO3 24.3 09/30/16 pH 7.37, CO2 42, O2 97, HCO3 24.0 09/29/16 pH 7.36, CO2 44, O2 92, HCO3 24.3 09/28/16 pH 7.37, CO2 43, O2 85, HCO3 24.4 09/27/16 pH 7.27, CO2 45, O2 87, HCO3 20.1 09/26/16 (11:45) pH 7.24, CO2 57, O2 65, HCO3 21.8 09/26/16 (05:09) pH 7.28, CO2 50, O2 85, HCO3 22 09/25/16 pH 7.28, CO2 53, O2 113, HCO3 23 09/24/16 pH 7.32, CO2 54, O2 352, HCO3 25.4 09/23/16 O2 345 09/23/16 pH 7.22, CO2 80, O2 377, HCO3 26.9 GI: Patient failed repeat swallow evaluation Patient will remain NPO- no meds Re-insert OG tube Protonix 40mg IV daily Rectal Tube- removed 08/29 to no output GI Consult- Dr. Ayala- May have steroid or ICU psychosis, insists she is going home and her family is picking her up today. Rec: Obtain swallow eval in anticipation of solid diet. Lactulose continue. Patient refusing abdominal XR. Gen Surg Consult- Dr. Jimenez- -no surgical intervention at this time- sign off Lactulose 20mg po HS 10/01/16 Abd XR- Mild dilatation of the transverse and ascending colon. No evidence of small bowel obstruction. No masses or abnormal intra-abdominal calcifications. Nasogastric tube tip in left upper quadrant of abdomen. No definite free intraperitoneal air. 09/29/16 CT ABd/Pelv- 1. Cholelithiasis without CT evidence for acute cholecystitis. 2. Colonic distention with air-fluid levels which may represent ileus or pseudo obstruction, no definite evidence of mass or colitis. 3. Mild sigmoid diverticulosis without CT evidence for acute diverticulitis. 4. Several large simple cysts in the left kidney. Nonvisualization of the right kidney. 5. Mild ascites and moderate bilateral pleural effusions. 09/29/16 Abd XR- Moderately dilated bowel loops at the mid to upper abdomen right more than left. If clinically warranted further assessment by CT is suggested. Purred diet with thin liquids s/p passing of swallow eval Hematology: No leukocytosis Hgb/Hct stable Bandemia improving 14 > 6 > 8 > 1 > 2 > 1 Endocrine: maintain euglycemia HbA1c- 5.9 Insulin Sliding Scale protocol Renal: LR 100ml/hr Actue rise in BUN/Cr: improving Hypokalemia- resolved Hypernatremia- LR 100ml/hr ID: U/A negative Blood Cx negative DC Abx today 10/03/16 : None MSK: None Palliative Care: Palliative Care Consult Placed GI Prophylaxis- pepcid 20mg po daily DVT Prophylaxis- lovenox 40mg sc daily Tommie Levy PGY1 - Date & Time Date: 10/04/16 Time: 18:01 <Cherie Shelley - Last Filed: 10/09/16 08:00> CCU Objective - Vital Signs / Intake & Output Vital Signs (Last 4 hours): Vital Signs Temp Pulse Resp BP Pulse Ox 10/09/16 06:00 78 16 138/71 100 10/09/16 05:00 86 16 123/69 100 10/09/16 04:00 97.9 F 88 16 140/71 100 Intake and Output (Last 8hrs): Intake & Output 10/08/16 10/09/16 10/09/16 22:59 06:59 14:59 Intake Total 810.5 740.0 Output Total 210 310 Balance 600.5 430.0 Weight 157 lb 1 oz Intake: Intake, IV Amount 760.5 740.0 Right Forearm 225 Right Distal Port Forearm 37.5 Right Proximal Port 48.0 90.0 Subclavian Right Distal Port 350 650 Subclavian Right Medial Port 100 Subclavian Other 50 Output: Urine 210 310 Urethral (Antony) 210 310 Other: # Bowel Movements 1 - Medications Active Medications: Active Medications Generic Name Dose Route Start Last Admin Trade Name Anselmo PRN Reason Stop Dose Admin Albuterol/Ipratropium 3 ml 10/08/16 20:00 10/09/16 07:24 Duoneb 3 Mg/0.5 Mg (3 Ml) Ud INH 3 ml RQ4 JUVENAL Administration Aspirin 81 mg 09/24/16 18:30 10/05/16 09:14 Aspirin Chewable PO 81 mg DAILY JUVENAL Administration Budesonide 0.5 mg 10/02/16 20:00 10/09/16 07:24 Pulmicort Respules INH 0.5 mg RQ12 JUVENAL Administration Clopidogrel Bisulfate 75 mg 09/26/16 10:00 10/05/16 09:14 Plavix PO 75 mg DAILY JUVENAL Administration Diltiazem HCl 5 mg 10/07/16 21:00 10/09/16 03:20 Cardizem IVP 5 mg Q6H JUVENAL Administration Enoxaparin Sodium 40 mg 09/26/16 13:00 10/05/16 09:14 Lovenox SC 40 mg DAILY JUVENAL Administration Famotidine 20 mg 10/08/16 10:00 10/08/16 09:27 Pepcid IVP 20 mg DAILY JUVENAL Administration Doxycycline Hyclate 100 mg/ 100 mls @ 100 mls/hr 10/07/16 05:00 10/09/16 04:51 Sodium Chloride IVPB 100 mls/hr Q12H JUVENAL Administration Lactated Ringer's 1,000 mls @ 75 mls/hr 10/07/16 21:00 10/09/16 04:56 Lactated Ringer's IV 75 mls/hr .[id number] JUVENAL Administration Metronidazole 100 mls @ 100 mls/hr 10/07/16 22:00 10/09/16 05:52 Flagyl IVPB 100 mls/hr Q8 JUVENAL Administration Propofol 100 mls @ 2.097 mls/hr 10/08/16 12:30 10/09/16 03:21 Diprivan IV 12.584 mls/hr .Q24H PRN Administration TITRATE PER MD ORDER Protocol 5 MCG/KG/MIN Insulin Human Regular 0 unit 10/09/16 00:01 10/09/16 05:53 Novolin R SC Not Given Q6H [facility] Protocol Lisinopril 20 mg 10/05/16 18:00 10/08/16 19:33 Zestril NG 20 mg BID JUVENAL Administration Methylprednisolone 20 mg 10/07/16 10:00 10/08/16 11:12 Solu-Medrol IV 20 mg DAILY JUVENAL Administration Polyethylene Glycol 17 gm 10/06/16 10:00 10/08/16 09:28 Miralax PO Not Given DAILY JUVENAL Rosuvastatin Calcium 10 mg 09/23/16 22:00 10/08/16 22:13 Crestor PO 10 mg HS JUVENAL Administration - Patient Studies Lab Studies: Lab Studies 10/09/16 10/09/16 10/09/16 Range/Units 06:08 05:25 04:48 WBC 17.4 H (4.8-10.8) K/uL RBC 3.17 L (3.80-5.20) Mil/uL Hgb 9.6 L D (11.0-16.0) g/dL Hct 29.3 L (34.0-47.0) % MCV 92.5 (81.0-99.0) fL MCH 30.2 (27.0-31.0) pg MCHC 32.6 L (33.0-37.0) g/dL RDW 14.3 (11.5-14.5) % Plt Count 137 (130-400) K/uL MPV 9.9 (7.2-11.7) fL Neut % (Auto) 91.1 H (50.0-75.0) % Lymph % (Auto) 4.9 L (20.0-40.0) % [place] % (Auto) 3.5 (0.0-10.0) % Eos % (Auto) 0.0 (0.0-4.0) % Baso % (Auto) 0.5 (0.0-2.0) % Neut # 15.9 H (1.8-7.0) K/uL Lymph # 0.9 L (1.0-4.3) K/uL [place] # 0.6 (0.0-0.8) K/uL Eos # 0.0 (0.0-0.7) K/uL Baso # 0.1 (0.0-0.2) K/uL Neutrophils % (Manual) 86 H (50-75) % Band Neutrophils % 7 H (0-2) % Lymphocytes % (Manual) 3 L (20-40) % Monocytes % (Manual) 4 (0-10) % Platelet Estimate Normal (NORMAL) Large Platelets Present Hypochromasia (manual) Slight Anisocytosis (manual) Puncture Site Rr pCO2 47 H (35-45) mm/Hg pO2 147 H (80-100) mm/Hg HCO3 31.7 H (21-28) mmol/L ABG pH 7.46 H (7.35-7.45) ABG Total CO2 34.8 H (22-28) mmol/L ABG O2 Saturation 100.1 H (95-98) % ABG Base Excess 8.6 H (-2.0-3.0) mmol/L ABG Hemoglobin 9.7 L (11.7-17.4) g/dL ABG Carboxyhemoglobin 1.7 H (0.5-1.5) % POC ABG HHb (Measured) -0.1 L (0.0-5.0) % ABG Methemoglobin 1.2 (0.0-3.0) % Fish Test Pos A-a O2 Difference 365.0 mm/Hg Respiratory Index 2.5 Hgb O2 Saturation 97.2 (95.0-98.0) % Mechanical Rate 16 FiO2 80.0 % Tidal Volume 400 PEEP 5 Sodium 146 (132-148) mmol/L Potassium 3.0 L (3.6-5.2) mmol/L Chloride 104 (98-107) mmol/L Carbon Dioxide 33 H (22-30) mmol/L Anion Gap 12 (10-20) BUN 36 H (7-17) mg/dL Creatinine 1.2 (0.7-1.2) MG/DL Est GFR ( Amer) 52 Est GFR (Non-Af Amer) 43 POC Glucose (mg/dL) 104 (65-110) mg/dL Random Glucose 89 (65-105) mg/dL Calcium 7.9 L (8.6-10.4) mg/dl Phosphorus 2.1 L (2.5-4.5) mg/dL Magnesium 1.8 (1.6-2.3) mg/dL Total Bilirubin 0.5 (0.2-1.3) mg/dL AST 27 (14-36) U/L ALT 53 H (9-52) U/L Alkaline Phosphatase 41 (38-126) U/L Total Protein 4.2 L (6.3-8.3) g/dL Albumin 2.1 L D (3.5-5.0) g/dL Globulin 2.1 L (2.2-3.9) gm/dL Albumin/Globulin Ratio 1.0 (1.0-2.1) 10/09/16 10/08/16 10/08/16 Range/Units 00:19 17:57 11:38 WBC (4.8-10.8) K/uL RBC (3.80-5.20) Mil/uL Hgb (11.0-16.0) g/dL Hct (34.0-47.0) % MCV (81.0-99.0) fL MCH (27.0-31.0) pg MCHC (33.0-37.0) g/dL RDW (11.5-14.5) % Plt Count (130-400) K/uL MPV (7.2-11.7) fL Neut % (Auto) (50.0-75.0) % Lymph % (Auto) (20.0-40.0) % [place] % (Auto) (0.0-10.0) % Eos % (Auto) (0.0-4.0) % Baso % (Auto) (0.0-2.0) % Neut # (1.8-7.0) K/uL Lymph # (1.0-4.3) K/uL [place] # (0.0-0.8) K/uL Eos # (0.0-0.7) K/uL Baso # (0.0-0.2) K/uL Neutrophils % (Manual) (50-75) % Band Neutrophils % (0-2) % Lymphocytes % (Manual) (20-40) % Monocytes % (Manual) (0-10) % Platelet Estimate (NORMAL) Large Platelets Hypochromasia (manual) Anisocytosis (manual) Puncture Site Rr pCO2 60 H (35-45) mm/Hg pO2 159 H (80-100) mm/Hg HCO3 28.9 H (21-28) mmol/L ABG pH 7.34 L (7.35-7.45) ABG Total CO2 34.2 H (22-28) mmol/L ABG O2 Saturation 100.2 H (95-98) % ABG Base Excess 5.1 H (-2.0-3.0) mmol/L ABG Hemoglobin 11.7 (11.7-17.4) g/dL ABG Carboxyhemoglobin 2.1 H (0.5-1.5) % POC ABG HHb (Measured) -0.2 L (0.0-5.0) % ABG Methemoglobin 1.3 (0.0-3.0) % Fish Test Pos A-a O2 Difference 479.0 mm/Hg Respiratory Index 3.0 Hgb O2 Saturation 96.9 (95.0-98.0) % Mechanical Rate 16 FiO2 100.0 % Tidal Volume 450 PEEP 5 Sodium (132-148) mmol/L Potassium (3.6-5.2) mmol/L Chloride (98-107) mmol/L Carbon Dioxide (22-30) mmol/L Anion Gap (10-20) BUN (7-17) mg/dL Creatinine (0.7-1.2) MG/DL Est GFR ( Amer) Est GFR (Non-Af Amer) POC Glucose (mg/dL) 123 H 118 H (65-110) mg/dL Random Glucose (65-105) mg/dL Calcium (8.6-10.4) mg/dl Phosphorus (2.5-4.5) mg/dL Magnesium (1.6-2.3) mg/dL Total Bilirubin (0.2-1.3) mg/dL AST (14-36) U/L ALT (9-52) U/L Alkaline Phosphatase (38-126) U/L Total Protein (6.3-8.3) g/dL Albumin (3.5-5.0) g/dL Globulin (2.2-3.9) gm/dL Albumin/Globulin Ratio (1.0-2.1) 10/08/16 10/08/16 Range/Units 11:27 06:08 WBC (4.8-10.8) K/uL RBC (3.80-5.20) Mil/uL Hgb (11.0-16.0) g/dL Hct (34.0-47.0) % MCV (81.0-99.0) fL MCH (27.0-31.0) pg MCHC (33.0-37.0) g/dL RDW (11.5-14.5) % Plt Count (130-400) K/uL MPV (7.2-11.7) fL Neut % (Auto) (50.0-75.0) % Lymph % (Auto) (20.0-40.0) % [place] % (Auto) (0.0-10.0) % Eos % (Auto) (0.0-4.0) % Baso % (Auto) (0.0-2.0) % Neut # (1.8-7.0) K/uL Lymph # (1.0-4.3) K/uL [place] # (0.0-0.8) K/uL Eos # (0.0-0.7) K/uL Baso # (0.0-0.2) K/uL Neutrophils % (Manual) 92 H (50-75) % Band Neutrophils % (0-2) % Lymphocytes % (Manual) 6 L (20-40) % Monocytes % (Manual) 2 (0-10) % Platelet Estimate Normal (NORMAL) Large Platelets Hypochromasia (manual) Anisocytosis (manual) Slight Puncture Site pCO2 (35-45) mm/Hg pO2 (80-100) mm/Hg HCO3 (21-28) mmol/L ABG pH (7.35-7.45) ABG Total CO2 (22-28) mmol/L ABG O2 Saturation (95-98) % ABG Base Excess (-2.0-3.0) mmol/L ABG Hemoglobin (11.7-17.4) g/dL ABG Carboxyhemoglobin (0.5-1.5) % POC ABG HHb (Measured) (0.0-5.0) % ABG Methemoglobin (0.0-3.0) % Fish Test A-a O2 Difference mm/Hg Respiratory Index Hgb O2 Saturation (95.0-98.0) % Mechanical Rate FiO2 % Tidal Volume PEEP Sodium (132-148) mmol/L Potassium (3.6-5.2) mmol/L Chloride (98-107) mmol/L Carbon Dioxide (22-30) mmol/L Anion Gap (10-20) BUN (7-17) mg/dL Creatinine (0.7-1.2) MG/DL Est GFR ( Amer) Est GFR (Non-Af Amer) POC Glucose (mg/dL) 176 H (65-110) mg/dL Random Glucose (65-105) mg/dL Calcium (8.6-10.4) mg/dl Phosphorus (2.5-4.5) mg/dL Magnesium (1.6-2.3) mg/dL Total Bilirubin (0.2-1.3) mg/dL AST (14-36) U/L ALT (9-52) U/L Alkaline Phosphatase (38-126) U/L Total Protein (6.3-8.3) g/dL Albumin (3.5-5.0) g/dL Globulin (2.2-3.9) gm/dL Albumin/Globulin Ratio (1.0-2.1) Laboratory Results - last 24 hr 10/08/16 10/08/16 10/08/16 06:08 11:27 11:38 WBC RBC Hgb Hct MCV MCH MCHC RDW Plt Count MPV Neut % (Auto) Lymph % (Auto) [place] % (Auto) Eos % (Auto) Baso % (Auto) Neut # Lymph # [place] # Eos # Baso # Neutrophils % (Manual) 92 H Band Neutrophils % Lymphocytes % (Manual) 6 L Monocytes % (Manual) 2 Platelet Estimate Normal Large Platelets Hypochromasia (manual) Anisocytosis (manual) Slight Puncture Site Rr pCO2 60 H pO2 159 H HCO3 28.9 H ABG pH 7.34 L ABG Total CO2 34.2 H ABG O2 Saturation 100.2 H ABG Base Excess 5.1 H ABG Hemoglobin 11.7 ABG Carboxyhemoglobin 2.1 H POC ABG HHb (Measured) -0.2 L ABG Methemoglobin 1.3 Fish Test Pos A-a O2 Difference 479.0 Respiratory Index 3.0 Hgb O2 Saturation 96.9 Mechanical Rate 16 FiO2 100.0 Tidal Volume 450 PEEP 5 Sodium Potassium Chloride Carbon Dioxide Anion Gap BUN Creatinine Est GFR ( Amer) Est GFR (Non-Af Amer) POC Glucose (mg/dL) 176 H Random Glucose Calcium Phosphorus Magnesium Total Bilirubin AST ALT Alkaline Phosphatase Total Protein Albumin Globulin Albumin/Globulin Ratio 10/08/16 10/09/16 10/09/16 17:57 00:19 04:48 WBC RBC Hgb Hct MCV MCH MCHC RDW Plt Count MPV Neut % (Auto) Lymph % (Auto) [place] % (Auto) Eos % (Auto) Baso % (Auto) Neut # Lymph # [place] # Eos # Baso # Neutrophils % (Manual) Band Neutrophils % Lymphocytes % (Manual) Monocytes % (Manual) Platelet Estimate Large Platelets Hypochromasia (manual) Anisocytosis (manual) Puncture Site pCO2 pO2 HCO3 ABG pH ABG Total CO2 ABG O2 Saturation ABG Base Excess ABG Hemoglobin ABG Carboxyhemoglobin POC ABG HHb (Measured) ABG Methemoglobin Fish Test A-a O2 Difference Respiratory Index Hgb O2 Saturation Mechanical Rate FiO2 Tidal Volume PEEP Sodium Potassium Chloride Carbon Dioxide Anion Gap BUN Creatinine Est GFR ( Amer) Est GFR (Non-Af Amer) POC Glucose (mg/dL) 118 H 123 H 104 Random Glucose Calcium Phosphorus Magnesium Total Bilirubin AST ALT Alkaline Phosphatase Total Protein Albumin Globulin Albumin/Globulin Ratio 10/09/16 10/09/16 05:25 06:08 WBC 17.4 H RBC 3.17 L Hgb 9.6 L D Hct 29.3 L MCV 92.5 MCH 30.2 MCHC 32.6 L RDW 14.3 Plt Count 137 MPV 9.9 Neut % (Auto) 91.1 H Lymph % (Auto) 4.9 L [place] % (Auto) 3.5 Eos % (Auto) 0.0 Baso % (Auto) 0.5 Neut # 15.9 H Lymph # 0.9 L [place] # 0.6 Eos # 0.0 Baso # 0.1 Neutrophils % (Manual) 86 H Band Neutrophils % 7 H Lymphocytes % (Manual) 3 L Monocytes % (Manual) 4 Platelet Estimate Normal Large Platelets Present Hypochromasia (manual) Slight Anisocytosis (manual) Puncture Site Rr pCO2 47 H pO2 147 H HCO3 31.7 H ABG pH 7.46 H ABG Total CO2 34.8 H ABG O2 Saturation 100.1 H ABG Base Excess 8.6 H ABG Hemoglobin 9.7 L ABG Carboxyhemoglobin 1.7 H POC ABG HHb (Measured) -0.1 L ABG Methemoglobin 1.2 Fish Test Pos A-a O2 Difference 365.0 Respiratory Index 2.5 Hgb O2 Saturation 97.2 Mechanical Rate 16 FiO2 80.0 Tidal Volume 400 PEEP 5 Sodium 146 Potassium 3.0 L Chloride 104 Carbon Dioxide 33 H Anion Gap 12 BUN 36 H Creatinine 1.2 Est GFR ( Amer) 52 Est GFR (Non-Af Amer) 43 POC Glucose (mg/dL) Random Glucose 89 Calcium 7.9 L Phosphorus 2.1 L Magnesium 1.8 Total Bilirubin 0.5 AST 27 ALT 53 H Alkaline Phosphatase 41 Total Protein 4.2 L Albumin 2.1 L D Globulin 2.1 L Albumin/Globulin Ratio 1.0 Attending/Attestation - Attestation I have personally seen and examined this patient.: Yes I have fully participated in the care of the patient.: Yes I have reviewed all pertinent clinical information: Yes Notes (Text): 10/04/16 19:58 Patient seen and examined in the morning. Not showing significant improvement. Delirious. On ventimask, does not want to wear NC, it makes her more agitated. 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 Passed swallow evaluation, start feeds and give 1 bag of IV fluids since has not eaten since the 7th, when she was extubated.
--- NOTE | 2016-10-04 23:32 | CP.PCM.PN ---
Subjective - Date & Time of Evaluation Date of Evaluation: 10/04/16 Time of Evaluation: 12:47 - Subjective Subjective: Patient was seen and examined at bedside. No acute distress. No acute events overnight. Nursing staff reports no issues. Patient was extubated 10/02/16. The patient is currently sating in the low 90s on venti mask. The patient has passed a swallow evaluation and will begin feeds today. The patient denies complaints this morning. The patient denies fever, chills, headache, chest pain , SOB, cough, abdominal pain, N/V/D/C, and changes in bowel/bladder. Today, the patient passed swallow evaluation and will be started on a diet. Objective - Vital Signs/Intake and Output Vital Signs (last 24 hours): Temp Pulse Resp BP Pulse Ox 98.2 F 108 H 26 H 156/80 H 92 L 10/04/16 16:00 10/04/16 22:09 10/04/16 22:09 10/04/16 22:09 10/04/16 22:09 Intake and Output: 10/04/16 10/05/16 18:59 06:59 Intake Total 1709.0 268.3 Output Total 500 Balance 1209.0 268.3 - Medications Medications: Current Medications Albuterol/Ipratropium (Duoneb 3 Mg/0.5 Mg (3 Ml) Ud) 3 ml INH RQ4 [facility] Last Admin: 10/04/16 19:41 Dose: 3 ml Amlodipine Besylate (Norvasc) 10 mg PO DAILY [facility] Last Admin: 10/04/16 09:42 Dose: 10 mg Aspirin (Aspirin Chewable) 81 mg PO DAILY [facility] Last Admin: 10/04/16 09:42 Dose: 81 mg Budesonide (Pulmicort Respules) 0.5 mg INH RQ12 [facility] Last Admin: 10/04/16 19:41 Dose: 0.5 mg Clopidogrel Bisulfate (Plavix) 75 mg PO DAILY [facility] Last Admin: 10/04/16 09:42 Dose: 75 mg Enoxaparin Sodium (Lovenox) 40 mg SC DAILY [facility] Last Admin: 10/04/16 09:42 Dose: 40 mg Famotidine (Pepcid) 20 mg PO DAILY [facility] Last Admin: 10/04/16 09:42 Dose: 20 mg Hydralazine HCl (Apresoline) 10 mg IVP Q6H PRN PRN Reason: Other Last Admin: 10/04/16 01:24 Dose: 10 mg Diltiazem HCl 125 mg/ Dextrose 125 mls @ 10 mls/hr IV .[id number] [facility]AILA; 10 MG/HR PRN Reason: Protocol Last Admin: 10/04/16 22:09 Dose: 15 mls/hr Insulin Human Regular (Novolin R) 0 unit SC ACHS [facility] PRN Reason: Protocol Last Admin: 10/04/16 21:46 Dose: Not Given Lactulose (Enulose) 20 gm PO HS [facility] Last Admin: 10/04/16 21:56 Dose: 20 gm Lisinopril (Zestril) 20 mg NG DAILY [facility] Last Admin: 10/04/16 09:42 Dose: 20 mg Methylprednisolone (Solu-Medrol) 40 mg IV Q12 [facility] Last Admin: 10/04/16 21:56 Dose: 40 mg Nicotine (Nicoderm Cq) 1 patch TD DAILY [facility] Last Admin: 10/04/16 09:43 Dose: 1 patch Rosuvastatin Calcium (Crestor) 10 mg PO HS [facility] Last Admin: 10/04/16 21:56 Dose: 10 mg - Labs Labs: 10/04/16 06:22 10/04/16 06:22 PT 13.6 SECONDS (9.7-12.2) H 10/04/16 06:22 INR 1.2 10/04/16 06:22 APTT 27 SECONDS (21-34) 10/04/16 06:22 - Constitutional Appears: No Acute Distress, Confused, Chronically Ill - Eye Exam Eye Exam: EOMI, Normal appearance, PERRL Pupil Exam: NORMAL ACCOMODATION, PERRL - Respiratory Exam Respiratory Exam: Clear to Ausculation Bilateral, NORMAL BREATHING PATTERN - Cardiovascular Exam Cardiovascular Exam: REGULAR RHYTHM, +S1, +S2. absent: Murmur Assessment and Plan (1) Acute respiratory failure with hypoxia and hypercarbia Status: Resolved (2) Altered mental status Status: Resolved (3) Acute [place] Status: Acute (4) Dehydration Status: Acute
[2016-10-05] MEDS: Albuterol-Ipratrop 3 mg / 0.5 (3 ml) UD INH SCH ×7 (00:15→23:32)
[2016-10-05 06:54] LABS: BASO # 0.1 K/uL (0.0-0.2); BASO % 0.3 % (0.0-2.0); EOS % 0.1 % (0.0-4.0); HEMATOCRIT 39.5 % (34.0-47.0); LYMPH # 0.6 K/uL (1.0-4.3); MEAN CELL VOLUME 91.9 fL (81.0-99.0); MEAN CORPUSCULAR HEMOGLOBIN 30.6 pg (27.0-31.0); MEAN CORPUSCULAR HGB CONC 33.3 g/dL (33.0-37.0); MEAN PLATELET VOLUME 9.2 fL (7.2-11.7); MONO # 0.4 K/uL (0.0-0.8); MONO % 2.1 % (0.0-10.0); NRBC % 0.2 % (0.0-2.0); PLATELET COUNT 226 K/uL (130-400); RED CELL DISTRIBUTION WIDTH 14.4 % (11.5-14.5); WHITE BLOOD COUNT 18.4 K/uL (4.8-10.8)
[2016-10-05 07:00] LABS: POTASSIUM 3.6 mmol/L (3.6-5.2)
[2016-10-05 07:02] LABS: BILIRUBIN,TOTAL 0.8 mg/dL (0.2-1.3)
[2016-10-05 07:03] LABS: ALB/GLOB RATIO 1.3 (1.0-2.1); CALCIUM 8.1 mg/dl (8.6-10.4); PHOSPHOROUS 2.4 mg/dL (2.5-4.5); TOTAL PROTEIN 5.2 g/dL (6.3-8.3)
[2016-10-05] MEDS: Budesonide 0.5 mg/2 ml Inhal Susp UD INH SCH ×2 (07:28→19:26)
[2016-10-05] MEDS: (Novolin R) Insulin Human Regular 100 units/ml vial SC SCH ×4 (08:00→22:00)
[2016-10-05] MEDS: Enoxaparin 40 mg Syringe SC SCH (09:14)
[2016-10-05] MEDS: MethylPREDNISolone 40 mg Vial IV SCH ×2 (09:14→14:17)
[2016-10-05 09:16] LABS: NEUTROPHIL 92 % (50-75); TOTAL CELLS COUNTED 100
[2016-10-05 09:18] LABS: LARGE PLATELETS PRESENT
--- NOTE | 2016-10-05 09:39 | CP.PCM.PN ---
Subjective - Date & Time of Evaluation Date of Evaluation: 10/05/16 Time of Evaluation: 09:37 - Subjective Subjective: CC: ICU follow up for abdominal distension No BM x 2 days. Ate a small amount today. Denies abdominal pain. On Lactulose. WBC elevated. Amiodarone stopped. KUB today improved ileus Objective - Vital Signs/Intake and Output Vital Signs (last 24 hours): Temp Pulse Resp BP Pulse Ox 97.8 F 92 H 28 H 148/71 93 L 10/05/16 08:00 10/05/16 08:00 10/05/16 08:00 10/05/16 08:00 10/05/16 08:00 Intake and Output: 10/05/16 10/05/16 06:59 18:59 Intake Total 1154.6 86.6 Balance 1154.6 86.6 - Medications Medications: Current Medications Albuterol/Ipratropium (Duoneb 3 Mg/0.5 Mg (3 Ml) Ud) 3 ml INH RQ4 [facility] Last Admin: 10/05/16 07:28 Dose: 3 ml Amlodipine Besylate (Norvasc) 10 mg PO DAILY [facility] Last Admin: 10/05/16 09:14 Dose: 10 mg Aspirin (Aspirin Chewable) 81 mg PO DAILY [facility] Last Admin: 10/05/16 09:14 Dose: 81 mg Budesonide (Pulmicort Respules) 0.5 mg INH RQ12 [facility] Last Admin: 10/05/16 07:28 Dose: 0.5 mg Clopidogrel Bisulfate (Plavix) 75 mg PO DAILY [facility] Last Admin: 10/05/16 09:14 Dose: 75 mg Enoxaparin Sodium (Lovenox) 40 mg SC DAILY [facility] Last Admin: 10/05/16 09:14 Dose: 40 mg Famotidine (Pepcid) 20 mg PO DAILY [facility] Last Admin: 10/05/16 09:13 Dose: 20 mg Hydralazine HCl (Apresoline) 10 mg IVP Q6H PRN PRN Reason: Other Last Admin: 10/04/16 01:24 Dose: 10 mg Diltiazem HCl 125 mg/ Dextrose 125 mls @ 10 mls/hr IV .[id number] [facility]AILA; 10 MG/HR PRN Reason: Protocol Last Admin: 10/05/16 06:35 Dose: 10 mls/hr Amiodarone HCl 900 mg/ (Dextrose) 500 mls @ 33.33 mls/hr IV .[id number] ONE; 1 MG/ MIN PRN Reason: Protocol Stop: 10/05/16 18:13 Last Admin: 10/05/16 03:30 Dose: 33.33 mls/hr Insulin Human Regular (Novolin R) 0 unit SC ACHS [facility] PRN Reason: Protocol Last Admin: 10/05/16 08:00 Dose: 2 unit Lactulose (Enulose) 20 gm PO HS [facility] Last Admin: 10/04/16 21:56 Dose: 20 gm Lisinopril (Zestril) 20 mg NG DAILY [facility] Last Admin: 10/05/16 09:14 Dose: 20 mg Methylprednisolone (Solu-Medrol) 40 mg IV Q12 [facility] Last Admin: 10/05/16 09:14 Dose: 40 mg Nicotine (Nicoderm Cq) 1 patch TD DAILY [facility] Last Admin: 10/04/16 09:43 Dose: 1 patch Rosuvastatin Calcium (Crestor) 10 mg PO HS [facility] Last Admin: 10/04/16 21:56 Dose: 10 mg - Labs Labs: 10/05/16 06:47 10/05/16 06:42 PT 13.6 SECONDS (9.7-12.2) H 10/04/16 06:22 INR 1.2 10/04/16 06:22 APTT 27 SECONDS (21-34) 10/04/16 06:22 - Constitutional Appears: No Acute Distress - Head Exam Head Exam: NORMOCEPHALIC - Respiratory Exam Respiratory Exam: Decreased Breath Sounds - Cardiovascular Exam Cardiovascular Exam: REGULAR RHYTHM - GI/Abdominal Exam GI & Abdominal Exam: Soft, Hypoactive Bowel Sounds. absent: Distended, Tenderness, Mass, Organomegaly Assessment and Plan (1) Respiratory failure Status: Resolved (2) Abdominal distension Assessment & Plan: Will change from Lactulose to Miralax May advance diet. Status: Resolved
--- NOTE | 2016-10-05 10:04 | RAD ---
Abdomen single frontal view History: Ileus. Comparison: 10/01/2016 Findings: Persistent dilatation of the transverse and ascending colon. Few dilated loops of small bowel seen within the right mid and lower abdomen. Consolidative changes with trace effusion at the left lung base. Degenerative changes in the spine. Impression: Nonspecific bowel gas pattern with a few dilated loops of small bowel seen within the mid and lower abdomen as well as dilatation of the ascending and transverse colon.
--- NOTE | 2016-10-05 14:40 | CP.PCM.PN ---
Subjective - Date & Time of Evaluation Date of Evaluation: 10/05/16 Time of Evaluation: 14:40 - Subjective Subjective: 86F, smoker/COPD, HTN with hypercapneac respiratory failure s/p VDRF; The patient was extubated 10/02/16; remains in persistent CAF c RVR Objective - Vital Signs/Intake and Output Vital Signs (last 24 hours): Temp Pulse Resp BP Pulse Ox 97.8 F 96 H 25 H 152/80 H 93 L 10/05/16 08:00 10/05/16 12:00 10/05/16 12:00 10/05/16 12:00 10/05/16 12:00 Intake and Output: 10/05/16 10/05/16 06:59 18:59 Intake Total 1154.6 486.6 Balance 1154.6 486.6 - Medications Medications: Current Medications Albuterol/Ipratropium (Duoneb 3 Mg/0.5 Mg (3 Ml) Ud) 3 ml INH RQ4 [facility] Last Admin: 10/05/16 11:58 Dose: 3 ml Aspirin (Aspirin Chewable) 81 mg PO DAILY [facility] Last Admin: 10/05/16 09:14 Dose: 81 mg Budesonide (Pulmicort Respules) 0.5 mg INH RQ12 [facility] Last Admin: 10/05/16 07:28 Dose: 0.5 mg Clopidogrel Bisulfate (Plavix) 75 mg PO DAILY [facility] Last Admin: 10/05/16 09:14 Dose: 75 mg Diltiazem HCl (Cardizem) 60 mg PO QID [facility] Last Admin: 10/05/16 14:17 Dose: 60 mg Enoxaparin Sodium (Lovenox) 40 mg SC DAILY [facility] Last Admin: 10/05/16 09:14 Dose: 40 mg Famotidine (Pepcid) 20 mg PO DAILY [facility] Last Admin: 10/05/16 09:13 Dose: 20 mg Diltiazem HCl 125 mg/ Dextrose 125 mls @ 10 mls/hr IV .[id number] [facility]AILA; 10 MG/HR PRN Reason: Protocol Last Admin: 10/05/16 06:35 Dose: 10 mls/hr Insulin Human Regular (Novolin R) 0 unit SC ACHS [facility] PRN Reason: Protocol Last Admin: 10/05/16 12:25 Dose: 3 unit Lisinopril (Zestril) 20 mg NG BID [facility] Methylprednisolone (Solu-Medrol) 20 mg IV Q12H [facility] Last Admin: 10/05/16 14:17 Dose: 20 mg Nicotine (Nicoderm Cq) 1 patch TD DAILY [facility] Last Admin: 10/05/16 10:00 Dose: 1 patch Polyethylene Glycol (Miralax) 17 gm PO DAILY [facility] Rosuvastatin Calcium (Crestor) 10 mg PO HS [facility] Last Admin: 10/04/16 21:56 Dose: 10 mg - Labs Labs: 10/05/16 06:47 10/05/16 06:42 PT 13.6 SECONDS (9.7-12.2) H 10/04/16 06:22 INR 1.2 10/04/16 06:22 APTT 27 SECONDS (21-34) 10/04/16 06:22 - Constitutional Appears: No Acute Distress - Head Exam Head Exam: ATRAUMATIC, NORMOCEPHALIC - Eye Exam Eye Exam: Normal appearance - ENT Exam ENT Exam: Mucous Membranes Moist - Neck Exam Neck Exam: Normal Inspection - Respiratory Exam Respiratory Exam: Clear to Ausculation Bilateral - Cardiovascular Exam Cardiovascular Exam: REGULAR RHYTHM - GI/Abdominal Exam GI & Abdominal Exam: Soft, Normal Bowel Sounds Assessment and Plan (1) Acute [place] Assessment & Plan: 86F, smoker/COPD, HTN with hypercapneac respiratory failure s/p VDRF; The patient was extubated 10/02/16; remains in persistent CAF c RVR Status: Acute
--- NOTE | 2016-10-05 16:25 | CP.CCUPN ---
CCU Subjective - Physician Review Subjective (Free Text): 10/05/16 16:21 pt seen/examined. on nc, sats good. no acute events. loaded with amio x 24hrs. remains on ccb gtt afeb/vss nad jae supple lungs faint b/l wheeze cvs irreg, s1, s2 abd soft, nt/nd, bs+ve ext no edema neuro nonfocal labs/meds/imaging reviewed independently as noted below Assessment and Plan 86F, smoker/COPD, HTN with hypercapneac respiratory failure s/p VDRF; The patient was extubated 10/02/16; remains in persistent CAF c RVR finished amio load cont CCB gtt and wean; start PO CCB adjusted BP meds cont ASA/Plavix / statin wean steroids; cont nebs/inh adv diet as tolerated bowel regimen oob / pt eval GI / DVT PPx Fran Bentley MD CC time spent 35min CCU Objective - Vital Signs / Intake & Output Intake and Output (Last 8hrs): Intake & Output 10/05/16 10/05/16 10/05/16 06:59 14:59 22:59 Intake Total 501.4 606.6 10 Output Total 0 0 Balance 501.4 606.6 10 Weight 157 lb 6 oz Intake: Intake, IV Amount 381.4 146.6 10 Right Forearm 115 80 10 Right Forearm Y port 266.4 66.6 Oral 120 460 0 Output: Urine 0 0 Urine, Voided 0 0 - Medications Active Medications: Active Medications Generic Name Dose Route Start Last Admin Trade Name Freq PRN Reason Stop Dose Admin Albuterol/Ipratropium 3 ml 09/30/16 12:00 10/05/16 16:19 Duoneb 3 Mg/0.5 Mg (3 Ml) Ud INH 3 ml RQ4 KAILA Administration Aspirin 81 mg 09/24/16 18:30 10/05/16 09:14 Aspirin Chewable PO 81 mg DAILY KAILA Administration Budesonide 0.5 mg 10/02/16 20:00 10/05/16 07:28 Pulmicort Respules INH 0.5 mg RQ12 KAILA Administration Clopidogrel Bisulfate 75 mg 09/26/16 10:00 10/05/16 09:14 Plavix PO 75 mg DAILY KAILA Administration Diltiazem HCl 60 mg 10/05/16 14:00 10/05/16 14:17 Cardizem PO 60 mg QID KAILA Administration Enoxaparin Sodium 40 mg 09/26/16 13:00 10/05/16 09:14 Lovenox SC 40 mg DAILY KAILA Administration Famotidine 20 mg 09/29/16 10:00 10/05/16 09:13 Pepcid PO 20 mg DAILY KAILA Administration Diltiazem HCl 125 mg/ Dextrose 125 mls @ 10 mls/hr 10/04/16 05:30 10/05/16 06: 35 IV 10 mls/hr .[id number] KAILA Administration Protocol 10 MG/HR Insulin Human Regular 0 unit 10/04/16 17:00 10/05/16 12:25 Novolin R SC 3 unit ACHS KAILA Administration Protocol Lisinopril 20 mg 10/05/16 18:00 Zestril NG BID KAILA Methylprednisolone 20 mg 10/05/16 13:13 10/05/16 14:17 Solu-Medrol IV 20 mg Q12H KAILA Administration Nicotine 1 patch 09/25/16 10:00 10/05/16 10:00 Nicoderm Cq TD 1 patch DAILY KAILA Administration Polyethylene Glycol 17 gm 10/06/16 10:00 Miralax PO DAILY KAILA Rosuvastatin Calcium 10 mg 09/23/16 22:00 10/04/16 21:56 Crestor PO 10 mg HS KAILA Administration - Patient Studies Lab Studies: Lab Studies 10/05/16 10/05/16 10/05/16 Range/Units 11:59 07:32 06:47 WBC 18.4 H (4.8-10.8) K/uL RBC 4.30 (3.80-5.20) Mil/uL Hgb 13.2 (11.0-16.0) g/dL Hct 39.5 (34.0-47.0) % MCV 91.9 (81.0-99.0) fL MCH 30.6 (27.0-31.0) pg MCHC 33.3 (33.0-37.0) g/dL RDW 14.4 (11.5-14.5) % Plt Count 226 (130-400) K/uL MPV 9.2 (7.2-11.7) fL Neut % (Auto) 94.5 H (50.0-75.0) % Lymph % (Auto) 3.0 L (20.0-40.0) % [place] % (Auto) 2.1 (0.0-10.0) % Eos % (Auto) 0.1 (0.0-4.0) % Baso % (Auto) 0.3 (0.0-2.0) % Neut # 17.4 H (1.8-7.0) K/uL Lymph # 0.6 L (1.0-4.3) K/uL [place] # 0.4 (0.0-0.8) K/uL Eos # 0.0 (0.0-0.7) K/uL Baso # 0.1 (0.0-0.2) K/uL Neutrophils % (Manual) 92 H (50-75) % Band Neutrophils % 2 (0-2) % Lymphocytes % (Manual) 3 L (20-40) % Monocytes % (Manual) 3 (0-10) % Platelet Estimate Normal (NORMAL) Large Platelets Present Anisocytosis (manual) Slight Sodium (132-148) mmol/L Potassium (3.6-5.2) mmol/L Chloride (98-107) mmol/L Carbon Dioxide (22-30) mmol/L Anion Gap (10-20) BUN (7-17) mg/dL Creatinine (0.7-1.2) MG/DL Est GFR ( Amer) Est GFR (Non-Af Amer) POC Glucose (mg/dL) 204 H 189 H (65-110) mg/dL Random Glucose (65-105) mg/dL Calcium (8.6-10.4) mg/dl Phosphorus (2.5-4.5) mg/dL Magnesium (1.6-2.3) mg/dL Total Bilirubin (0.2-1.3) mg/dL AST (14-36) U/L ALT (9-52) U/L Alkaline Phosphatase (38-126) U/L Total Protein (6.3-8.3) g/dL Albumin (3.5-5.0) g/dL Globulin (2.2-3.9) gm/dL Albumin/Globulin Ratio (1.0-2.1) 10/05/16 10/04/16 10/04/16 Range/Units 06:42 21:26 16:44 WBC (4.8-10.8) K/uL RBC (3.80-5.20) Mil/uL Hgb (11.0-16.0) g/dL Hct (34.0-47.0) % MCV (81.0-99.0) fL MCH (27.0-31.0) pg MCHC (33.0-37.0) g/dL RDW (11.5-14.5) % Plt Count (130-400) K/uL MPV (7.2-11.7) fL Neut % (Auto) (50.0-75.0) % Lymph % (Auto) (20.0-40.0) % [place] % (Auto) (0.0-10.0) % Eos % (Auto) (0.0-4.0) % Baso % (Auto) (0.0-2.0) % Neut # (1.8-7.0) K/uL Lymph # (1.0-4.3) K/uL [place] # (0.0-0.8) K/uL Eos # (0.0-0.7) K/uL Baso # (0.0-0.2) K/uL Neutrophils % (Manual) (50-75) % Band Neutrophils % (0-2) % Lymphocytes % (Manual) (20-40) % Monocytes % (Manual) (0-10) % Platelet Estimate (NORMAL) Large Platelets Anisocytosis (manual) Sodium 146 (132-148) mmol/L Potassium 3.6 (3.6-5.2) mmol/L Chloride 105 (98-107) mmol/L Carbon Dioxide 33 H (22-30) mmol/L Anion Gap 12 (10-20) BUN 35 H (7-17) mg/dL Creatinine 1.1 (0.7-1.2) MG/DL Est GFR ( Amer) 57 Est GFR (Non-Af Amer) 47 POC Glucose (mg/dL) 129 H 218 H (65-110) mg/dL Random Glucose 214 H (65-105) mg/dL Calcium 8.1 L (8.6-10.4) mg/dl Phosphorus 2.4 L (2.5-4.5) mg/dL Magnesium 2.0 (1.6-2.3) mg/dL Total Bilirubin 0.8 (0.2-1.3) mg/dL AST 27 (14-36) U/L ALT 45 (9-52) U/L Alkaline Phosphatase 47 (38-126) U/L Total Protein 5.2 L (6.3-8.3) g/dL Albumin 2.9 L (3.5-5.0) g/dL Globulin 2.3 (2.2-3.9) gm/dL Albumin/Globulin Ratio 1.3 (1.0-2.1) Laboratory Results - last 24 hr 10/04/16 10/04/16 10/05/16 16:44 21:26 06:42 WBC RBC Hgb Hct MCV MCH MCHC RDW Plt Count MPV Neut % (Auto) Lymph % (Auto) [place] % (Auto) Eos % (Auto) Baso % (Auto) Neut # Lymph # [place] # Eos # Baso # Neutrophils % (Manual) Band Neutrophils % Lymphocytes % (Manual) Monocytes % (Manual) Platelet Estimate Large Platelets Anisocytosis (manual) Sodium 146 Potassium 3.6 Chloride 105 Carbon Dioxide 33 H Anion Gap 12 BUN 35 H Creatinine 1.1 Est GFR ( Amer) 57 Est GFR (Non-Af Amer) 47 POC Glucose (mg/dL) 218 H 129 H Random Glucose 214 H Calcium 8.1 L Phosphorus 2.4 L Magnesium 2.0 Total Bilirubin 0.8 AST 27 ALT 45 Alkaline Phosphatase 47 Total Protein 5.2 L Albumin 2.9 L Globulin 2.3 Albumin/Globulin Ratio 1.3 10/05/16 10/05/16 10/05/16 06:47 07:32 11:59 WBC 18.4 H RBC 4.30 Hgb 13.2 Hct 39.5 MCV 91.9 MCH 30.6 MCHC 33.3 RDW 14.4 Plt Count 226 MPV 9.2 Neut % (Auto) 94.5 H Lymph % (Auto) 3.0 L [place] % (Auto) 2.1 Eos % (Auto) 0.1 Baso % (Auto) 0.3 Neut # 17.4 H Lymph # 0.6 L [place] # 0.4 Eos # 0.0 Baso # 0.1 Neutrophils % (Manual) 92 H Band Neutrophils % 2 Lymphocytes % (Manual) 3 L Monocytes % (Manual) 3 Platelet Estimate Normal Large Platelets Present Anisocytosis (manual) Slight Sodium Potassium Chloride Carbon Dioxide Anion Gap BUN Creatinine Est GFR ( Amer) Est GFR (Non-Af Amer) POC Glucose (mg/dL) 189 H 204 H Random Glucose Calcium Phosphorus Magnesium Total Bilirubin AST ALT Alkaline Phosphatase Total Protein Albumin Globulin Albumin/Globulin Ratio Fingerstick Blood Sugar Results: 204 Critical Care Progress Note - Nutrition Nutrition: Nutrition Category Date Time Status Heart Healthy Diet [DIET] Diets 10/04/16 Dinner Active
[2016-10-06 01:39] LABS: BASO # 0.1 K/uL (0.0-0.2); BASO % 0.2 % (0.0-2.0); HEMATOCRIT 40.2 % (34.0-47.0); LYMPH # 0.5 K/uL (1.0-4.3); LYMPH % 1.8 % (20.0-40.0); MEAN CELL VOLUME 90.8 fL (81.0-99.0); MEAN CORPUSCULAR HEMOGLOBIN 30.1 pg (27.0-31.0); MEAN CORPUSCULAR HGB CONC 33.1 g/dL (33.0-37.0); MEAN PLATELET VOLUME 9.2 fL (7.2-11.7); MONO # 0.7 K/uL (0.0-0.8); MONO % 2.6 % (0.0-10.0); PLATELET COUNT 262 K/uL (130-400); RED CELL DISTRIBUTION WIDTH 14.5 % (11.5-14.5); WHITE BLOOD COUNT 28.4 K/uL (4.8-10.8)
[2016-10-06 01:47] LABS: INR 1.1
--- NOTE | 2016-10-06 03:35 | CP.PCM.PN ---
Subjective - Date & Time of Evaluation Date of Evaluation: 10/06/16 Time of Evaluation: 03:25 - Subjective Subjective: Patient upon passing by noticed to have blood on her mouth and mittens. Upon careful exam fresh blood noticed on the tongue, palate, pharynx, also blood noticed very slight on the right external nostril, the patient continued to cough blood clots. SPO2 82-89% on close by held 50% v mask. Patient recently extubated from hypercapnic resp failure, and hence has been maintained towards lower spo2, h/o afib, recent, positive troponin borderline, on ASA, Plavix and prophylactic lovenox. Patient was packed with 7.5cm rapid rhino, which significantly reduced blood dripping in the back of the throat, but now started to bleed anteriorly, available jelfoam used to pack still further, and also ice pack used with no improvement. Dr. Bergeron was called and mentioned may need posterior packing and anterior packing, spoke to the nursing to arrange the bedside required sets. Anticoagulants put on hold, emperic doxycycline ordered. Objective - Vital Signs/Intake and Output Vital Signs (last 24 hours): Temp Pulse Resp BP Pulse Ox 98.1 F 98 H 26 H 157/73 H 95 10/05/16 16:00 10/05/16 19:00 10/05/16 19:00 10/05/16 19:00 10/05/16 19:00 Intake and Output: 10/05/16 10/06/16 18:59 07:59 Intake Total 796.6 110 Output Total 200 0 Balance 596.6 110 - Medications Medications: Current Medications Albuterol/Ipratropium (Duoneb 3 Mg/0.5 Mg (3 Ml) Ud) 3 ml INH RQ4 [facility] Last Admin: 10/05/16 23:32 Dose: 3 ml Aspirin (Aspirin Chewable) 81 mg PO DAILY [facility] Last Admin: 10/05/16 09:14 Dose: 81 mg Budesonide (Pulmicort Respules) 0.5 mg INH RQ12 [facility] Last Admin: 10/05/16 19:26 Dose: 0.5 mg Clopidogrel Bisulfate (Plavix) 75 mg PO DAILY [facility] Last Admin: 10/05/16 09:14 Dose: 75 mg Diltiazem HCl (Cardizem) 60 mg PO QID [facility] Last Admin: 10/05/16 21:34 Dose: 60 mg Doxycycline Hyclate (Doryx) 100 mg PO Q12H [facility] Enoxaparin Sodium (Lovenox) 40 mg SC DAILY [facility] Last Admin: 10/05/16 09:14 Dose: 40 mg Famotidine (Pepcid) 20 mg PO DAILY [facility] Last Admin: 10/05/16 09:13 Dose: 20 mg Diltiazem HCl 125 mg/ Dextrose 125 mls @ 10 mls/hr IV .[id number] KAILA; 10 MG/HR PRN Reason: Protocol Last Admin: 10/05/16 19:00 Dose: 5 mls/hr Doxycycline Hyclate 100 mg/ (Sodium Chloride) 100 mls @ 100 mls/hr IVPB STAT STA Stop: 10/06/16 04:11 Insulin Human Regular (Novolin R) 0 unit SC ACHS [facility] PRN Reason: Protocol Last Admin: 10/05/16 18:10 Dose: 2 unit Lisinopril (Zestril) 20 mg NG BID [facility] Last Admin: 10/05/16 18:10 Dose: 20 mg Methylprednisolone (Solu-Medrol) 20 mg IV Q12H [facility] Last Admin: 10/05/16 14:17 Dose: 20 mg Nicotine (Nicoderm Cq) 1 patch TD DAILY [facility] Last Admin: 10/05/16 10:00 Dose: 1 patch Polyethylene Glycol (Miralax) 17 gm PO DAILY [facility] Rosuvastatin Calcium (Crestor) 10 mg PO HS [facility] Last Admin: 10/05/16 21:34 Dose: 10 mg - Labs Labs: 10/06/16 01:34 10/05/16 06:42 PT 12.3 SECONDS (9.7-12.2) H 10/06/16 01:34 INR 1.1 10/06/16 01:34 APTT 27 SECONDS (21-34) 10/06/16 01:34
[2016-10-06 03:43] LABS: NEUTROPHIL 93 % (50-75); TOTAL CELLS COUNTED 100
[2016-10-06] MEDS: Albuterol-Ipratrop 3 mg / 0.5 (3 ml) UD INH SCH ×6 (04:13→23:41)
[2016-10-06] MEDS ORDERED: Morphine 4 MG/ML VIAL IV ONE (04:42)
[2016-10-06] MEDS: MethylPREDNISolone 40 mg Vial IV SCH (05:04)
[2016-10-06] MEDS: Budesonide 0.5 mg/2 ml Inhal Susp UD INH SCH ×2 (07:28→19:40)
[2016-10-06] MEDS: (Novolin R) Insulin Human Regular 100 units/ml vial SC SCH ×4 (07:41→22:28)
[2016-10-06] MEDS: POLYETHYLENE GLYCOL 3350 17 GM/Dose PACKET PO SCH (09:26)
--- NOTE | 2016-10-06 10:02 | RAD ---
PROCEDURE: CHEST RADIOGRAPH, 1 VIEW HISTORY: pneumonia COMPARISON: 10/02/2016 FINDINGS: LUNGS: Prominent confluent airspace opacification within the left mid to lower lung zone with associated moderate left pleural effusion. Milder patchy right basilar airspace opacity with trace right pleural effusion. Right paratracheal airspace opacification. Moderate venous congestion. Biapical pleural thickening with upper lobe granulomatous changes. PLEURA: As above. CARDIOVASCULAR: Cardiomegaly. OSSEOUS STRUCTURES: Degenerative changes in the spine and shoulders. VISUALIZED UPPER ABDOMEN: Normal. OTHER FINDINGS: None. IMPRESSION: Prominent confluent airspace opacification within the left mid to lower lung zone with associated moderate left pleural effusion. Milder patchy right basilar airspace opacity with trace right pleural effusion. Right paratracheal airspace opacification. Moderate venous congestion. Biapical pleural thickening with upper lobe granulomatous changes.
--- NOTE | 2016-10-06 11:38 | CP.CCUPN ---
CCU Subjective - Physician Review Events Since Last Encounter (Free Text): 10/06/16 11:38 Patient is 85-year-old female with a COPD admitted with acute respiratory failure. Currently intubated, and he extubated recently. She was doing okay, but lasted patient developed a significant large amount epistaxis, which was being controlled by balloon, and the packing. Currently not bleeding. She's also having large ecchymosis on the right flank region. Mild respiratory distress noted. On Ventimask. On examination: Vital signs reviewed Blood pressure is on the high side. Chest bilateral good air entry, decreased on the left side, regular heart sound , nontender abdomen. Rhythm showing evidence of atrial flutter. Labs: Hemoglobin is stable. Chest x-ray showing evidence of left lower lung atelectasis and effusion. Assessment and recommended: 85-year-old female with history of COPD hypertension and CAD. Admitted with acute respiratory failure. Extubated. But currently having severe epistaxis controlled with packing. Monitor the hemoglobin. Lasix given. Continue to watch respiratory status, nothing by mouth and will follow the patient CCU Objective - Vital Signs / Intake & Output Vital Signs (Last 4 hours): Vital Signs Temp Pulse Resp BP Pulse Ox 10/06/16 11:00 100 H 28 H 145/79 98 10/06/16 10:44 158/77 H 10/06/16 10:00 102 H 30 H 158/77 H 96 10/06/16 09:00 111 H 28 H 163/83 H 96 10/06/16 08:00 98.5 F 115 H 29 H 158/82 H 95 Intake and Output (Last 8hrs): Intake & Output 10/05/16 10/06/16 10/06/16 21:59 06:59 14:59 Intake Total 170 Output Total Balance 170 Weight Intake: Intake, IV Amount 20 Right Forearm 20 Right Wrist Oral 150 Output: Urine Urine, Voided Other: # Voids Urine, Voided - Physical Exam Head: Positive for: Atraumatic, Normocephalic, Other (ET Tube in place) Pupils: Positive for: PERRL Extroacular Muscles: Positive for: EOMI Mouth: Positive for: Dry Respiratory/Chest: Positive for: Clear to Auscultation, Good Air Exchange, Rales , Tachypneic. Negative for: Respiratory Distress, Accessory Muscle Use Cardiovascular: Positive for: Normal S1, S2, Irregular Rhythm. Negative for: Regular Rate and Rhythm, Murmurs Abdomen: Positive for: Tenderness, Distention, Normal Bowel Sounds, Guarding. Negative for: Peritoneal Signs, Rebound Upper Extremity: Positive for: Normal Inspection. Negative for: Cyanosis, Edema Lower Extremity: Positive for: Normal Inspection. Negative for: Edema, CALF TENDERNESS Neurological: Positive for: CN II-XII Intact Skin: Positive for: Warm, Dry Psychiatric: Positive for: Alert - Medications Active Medications: Active Medications Generic Name Dose Route Start Last Admin Trade Name Freq PRN Reason Stop Dose Admin Albuterol/Ipratropium 3 ml 09/30/16 12:00 10/06/16 11:21 Duoneb 3 Mg/0.5 Mg (3 Ml) Ud INH 3 ml RQ4 KAILA Administration Aspirin 81 mg 09/24/16 18:30 10/05/16 09:14 Aspirin Chewable PO 81 mg DAILY KAILA Administration Budesonide 0.5 mg 10/02/16 20:00 10/06/16 07:28 Pulmicort Respules INH 0.5 mg RQ12 KAILA Administration Clopidogrel Bisulfate 75 mg 09/26/16 10:00 10/05/16 09:14 Plavix PO 75 mg DAILY [facility]AILA Administration Diltiazem HCl 60 mg 10/05/16 14:00 10/06/16 09:25 Cardizem PO 60 mg QID [facility]AILA Administration Doxycycline Hyclate 100 mg 10/06/16 10:00 10/06/16 09:54 Doryx PO 100 mg Q12H KAILA Administration Enoxaparin Sodium 40 mg 09/26/16 13:00 10/05/16 09:14 Lovenox SC 40 mg DAILY [facility]AILA Administration Famotidine 20 mg 09/29/16 10:00 10/06/16 09:25 Pepcid PO 20 mg DAILY KAILA Administration Insulin Human Regular 0 unit 10/04/16 17:00 10/06/16 07:41 Novolin R SC 2 unit ACHS KAILA Administration Protocol Lisinopril 20 mg 10/05/16 18:00 10/06/16 09:25 Zestril NG 20 mg BID KAILA Administration Methylprednisolone 20 mg 10/07/16 10:00 Solu-Medrol IV DAILY KAILA Polyethylene Glycol 17 gm 10/06/16 10:00 10/06/16 09:26 Miralax PO 17 gm DAILY [facility]AILA Administration Rosuvastatin Calcium 10 mg 09/23/16 22:00 10/05/16 21:34 Crestor PO 10 mg HS KAILA Administration - Patient Studies Lab Studies: Lab Studies 10/06/16 10/06/16 10/05/16 Range/Units 07:26 01:34 22:11 WBC 28.4 H D (4.8-10.8) K/uL RBC 4.43 (3.80-5.20) Mil/uL Hgb 13.3 (11.0-16.0) g/dL Hct 40.2 (34.0-47.0) % MCV 90.8 (81.0-99.0) fL MCH 30.1 (27.0-31.0) pg MCHC 33.1 (33.0-37.0) g/dL RDW 14.5 (11.5-14.5) % Plt Count 262 (130-400) K/uL MPV 9.2 (7.2-11.7) fL Neut % (Auto) 95.4 H (50.0-75.0) % Lymph % (Auto) 1.8 L (20.0-40.0) % [place] % (Auto) 2.6 (0.0-10.0) % Eos % (Auto) 0.0 (0.0-4.0) % Baso % (Auto) 0.2 (0.0-2.0) % Neut # 27.1 H (1.8-7.0) K/uL Lymph # 0.5 L (1.0-4.3) K/uL [place] # 0.7 (0.0-0.8) K/uL Eos # 0.0 (0.0-0.7) K/uL Baso # 0.1 (0.0-0.2) K/uL Neutrophils % (Manual) 93 H (50-75) % Band Neutrophils % 1 (0-2) % Lymphocytes % (Manual) 4 L (20-40) % Monocytes % (Manual) 2 (0-10) % Platelet Estimate Normal (NORMAL) PT 12.3 H (9.7-12.2) SECONDS INR 1.1 APTT 27 (21-34) SECONDS POC Glucose (mg/dL) 195 H 139 H (65-110) mg/dL Blood Type O POSITIVE Antibody Screen Negative 10/05/16 10/05/16 Range/Units 16:48 11:59 WBC (4.8-10.8) K/uL RBC (3.80-5.20) Mil/uL Hgb (11.0-16.0) g/dL Hct (34.0-47.0) % MCV (81.0-99.0) fL MCH (27.0-31.0) pg MCHC (33.0-37.0) g/dL RDW (11.5-14.5) % Plt Count (130-400) K/uL MPV (7.2-11.7) fL Neut % (Auto) (50.0-75.0) % Lymph % (Auto) (20.0-40.0) % [place] % (Auto) (0.0-10.0) % Eos % (Auto) (0.0-4.0) % Baso % (Auto) (0.0-2.0) % Neut # (1.8-7.0) K/uL Lymph # (1.0-4.3) K/uL [place] # (0.0-0.8) K/uL Eos # (0.0-0.7) K/uL Baso # (0.0-0.2) K/uL Neutrophils % (Manual) (50-75) % Band Neutrophils % (0-2) % Lymphocytes % (Manual) (20-40) % Monocytes % (Manual) (0-10) % Platelet Estimate (NORMAL) PT (9.7-12.2) SECONDS INR APTT (21-34) SECONDS POC Glucose (mg/dL) 165 H 204 H (65-110) mg/dL Blood Type Antibody Screen Laboratory Results - last 24 hr 10/05/16 10/05/16 10/05/16 11:59 16:48 22:11 WBC RBC Hgb Hct MCV MCH MCHC RDW Plt Count MPV Neut % (Auto) Lymph % (Auto) [place] % (Auto) Eos % (Auto) Baso % (Auto) Neut # Lymph # [place] # Eos # Baso # Neutrophils % (Manual) Band Neutrophils % Lymphocytes % (Manual) Monocytes % (Manual) Platelet Estimate PT INR APTT POC Glucose (mg/dL) 204 H 165 H 139 H Blood Type Antibody Screen 10/06/16 10/06/16 01:34 07:26 WBC 28.4 H D RBC 4.43 Hgb 13.3 Hct 40.2 MCV 90.8 MCH 30.1 MCHC 33.1 RDW 14.5 Plt Count 262 MPV 9.2 Neut % (Auto) 95.4 H Lymph % (Auto) 1.8 L [place] % (Auto) 2.6 Eos % (Auto) 0.0 Baso % (Auto) 0.2 Neut # 27.1 H Lymph # 0.5 L [place] # 0.7 Eos # 0.0 Baso # 0.1 Neutrophils % (Manual) 93 H Band Neutrophils % 1 Lymphocytes % (Manual) 4 L Monocytes % (Manual) 2 Platelet Estimate Normal PT 12.3 H INR 1.1 APTT 27 POC Glucose (mg/dL) 195 H Blood Type O POSITIVE Antibody Screen Negative Fingerstick Blood Sugar Results: 195 Critical Care Progress Note - Nutrition Nutrition: Nutrition Category Date Time Status Heart Healthy Diet [DIET] Diets 10/04/16 Dinner Active
--- NOTE | 2016-10-06 11:48 | CP.PCM.PN ---
Subjective - Date & Time of Evaluation Date of Evaluation: 10/06/16 Time of Evaluation: 11:46 - Subjective Subjective: cc: fOLLOW UP ILEUS Events noted- epistaxis Marked leukocytosis Had 1 documented BM yesterday Objective - Vital Signs/Intake and Output Vital Signs (last 24 hours): Temp Pulse Resp BP Pulse Ox 98.5 F 100 H 28 H 145/79 98 10/06/16 08:00 10/06/16 11:00 10/06/16 11:00 10/06/16 11:00 10/06/16 11:00 Intake and Output: 10/06/16 10/06/16 06:59 18:59 Intake Total 170 Output Total Balance 170 - Medications Medications: Current Medications Albuterol/Ipratropium (Duoneb 3 Mg/0.5 Mg (3 Ml) Ud) 3 ml INH RQ4 [facility] Last Admin: 10/06/16 11:21 Dose: 3 ml Aspirin (Aspirin Chewable) 81 mg PO DAILY [facility] Last Admin: 10/05/16 09:14 Dose: 81 mg Budesonide (Pulmicort Respules) 0.5 mg INH RQ12 [facility] Last Admin: 10/06/16 07:28 Dose: 0.5 mg Clopidogrel Bisulfate (Plavix) 75 mg PO DAILY [facility] Last Admin: 10/05/16 09:14 Dose: 75 mg Diltiazem HCl (Cardizem) 60 mg PO QID [facility] Last Admin: 10/06/16 09:25 Dose: 60 mg Doxycycline Hyclate (Doryx) 100 mg PO Q12H [facility] Last Admin: 10/06/16 09:54 Dose: 100 mg Enoxaparin Sodium (Lovenox) 40 mg SC DAILY [facility] Last Admin: 10/05/16 09:14 Dose: 40 mg Famotidine (Pepcid) 20 mg PO DAILY [facility] Last Admin: 10/06/16 09:25 Dose: 20 mg Insulin Human Regular (Novolin R) 0 unit SC [facility] PRN Reason: Protocol Last Admin: 10/06/16 07:41 Dose: 2 unit Lisinopril (Zestril) 20 mg NG BID [facility] Last Admin: 10/06/16 09:25 Dose: 20 mg Methylprednisolone (Solu-Medrol) 20 mg IV DAILY [facility] Polyethylene Glycol (Miralax) 17 gm PO DAILY [facility] Last Admin: 10/06/16 09:26 Dose: 17 gm Rosuvastatin Calcium (Crestor) 10 mg PO HS [facility] Last Admin: 10/05/16 21:34 Dose: 10 mg - Labs Labs: 10/06/16 01:34 10/05/16 06:42 PT 12.3 SECONDS (9.7-12.2) H 10/06/16 01:34 INR 1.1 10/06/16 01:34 APTT 27 SECONDS (21-34) 10/06/16 01:34 - Constitutional Appears: Confused, Chronically Ill - ENT Exam Additional comments: Nasal packing O2 Facemask - GI/Abdominal Exam GI & Abdominal Exam: Distended, Hypoactive Bowel Sounds. absent: Tenderness, Mass, Rebound Assessment and Plan (1) Respiratory failure Assessment & Plan: Requiring O2 Managed by ICU team COPD Status: Chronic (2) Abdominal distension Assessment & Plan: Ileus noted on xrays, though improved from previous. Tolerating diet. Unclear why marked leukocytosis- consider Abdominal CT scan, CDiff . Status: Acute
--- NOTE | 2016-10-06 12:08 | OP ---
PROCEDURE DATE: 10/06/2016 PREPROCEDURE DIAGNOSIS: Epistaxis. POSTPROCEDURE DIAGNOSIS: Epistaxis. PROCEDURE: Posterior pack. SIGNIFICANT FINDINGS: Bleeding noted in the right nose. DESCRIPTION OF PROCEDURE: The patient was placed in a seated position. Antony catheter was inserted into the right nasal cavity, passed down to the nasopharynx. Balloon was inflated with 15 mL of wate r and Vaseline gauze was used to pack the nose going from a posterior to anterior direction on the ri ght. Clamp was placed on the Antony to keep it in place. Care was taken to make sure that the clamp was not touching any part of the nasal ala. Bleeding was controlled. The patient tolerated the proc edure well. Yakov Lowry MD cc: [id number] TT: 10/06/2016 12:07:42 en
[2016-10-06] MEDS ORDERED: Iohexol 240 (50 ml) PO ONE (12:45)
--- NOTE | 2016-10-06 17:20 | CP.PCM.PN ---
Subjective - Date & Time of Evaluation Date of Evaluation: 10/05/16 Time of Evaluation: 12:51 - Subjective Subjective: Pt seen & evaluated at bedside in ICU, is more alert and awake, No BM x 2 days. Ate a small amount today. Denies abdominal pain. On Lactulose.WBC elevated. Amiodarone stopped.KUB today improved ileus Objective - Vital Signs/Intake and Output Vital Signs (last 24 hours): Temp Pulse Resp BP Pulse Ox 97.5 F L 96 H 28 H 154/73 H 98 10/06/16 16:00 10/06/16 17:00 10/06/16 17:00 10/06/16 17:00 10/06/16 17:00 Intake and Output: 10/06/16 10/06/16 06:59 18:59 Intake Total 400 Output Total Balance 400 - Medications Medications: Current Medications Albuterol/Ipratropium (Duoneb 3 Mg/0.5 Mg (3 Ml) Ud) 3 ml INH RQ4 [facility] Last Admin: 10/06/16 16:20 Dose: 3 ml Aspirin (Aspirin Chewable) 81 mg PO DAILY [facility] Last Admin: 10/05/16 09:14 Dose: 81 mg Budesonide (Pulmicort Respules) 0.5 mg INH RQ12 [facility] Last Admin: 10/06/16 07:28 Dose: 0.5 mg Clopidogrel Bisulfate (Plavix) 75 mg PO DAILY [facility] Last Admin: 10/05/16 09:14 Dose: 75 mg Diltiazem HCl (Cardizem) 60 mg PO QID [facility] Last Admin: 10/06/16 17:09 Dose: 60 mg Doxycycline Hyclate (Doryx) 100 mg PO Q12H [facility] Last Admin: 10/06/16 09:54 Dose: 100 mg Enoxaparin Sodium (Lovenox) 40 mg SC DAILY [facility] Last Admin: 10/05/16 09:14 Dose: 40 mg Famotidine (Pepcid) 20 mg PO DAILY [facility] Last Admin: 10/06/16 09:25 Dose: 20 mg Insulin Human Regular (Novolin R) 0 unit SC ACHS [facility] PRN Reason: Protocol Last Admin: 10/06/16 16:13 Dose: Not Given Lisinopril (Zestril) 20 mg NG BID [facility] Last Admin: 10/06/16 17:09 Dose: 20 mg Methylprednisolone (Solu-Medrol) 20 mg IV DAILY [facility] Metronidazole (Flagyl) 500 mg PO TID [facility] Last Admin: 10/06/16 17:08 Dose: 500 mg Polyethylene Glycol (Miralax) 17 gm PO DAILY [facility] Last Admin: 10/06/16 09:26 Dose: 17 gm Rosuvastatin Calcium (Crestor) 10 mg PO HS [facility] Last Admin: 10/05/16 21:34 Dose: 10 mg - Labs Labs: 10/06/16 01:34 10/05/16 06:42 PT 12.3 SECONDS (9.7-12.2) H 10/06/16 01:34 INR 1.1 10/06/16 01:34 APTT 27 SECONDS (21-34) 10/06/16 01:34 - Constitutional Appears: Chronically Ill - Head Exam Head Exam: ATRAUMATIC, NORMAL INSPECTION, NORMOCEPHALIC - Respiratory Exam Respiratory Exam: Clear to Ausculation Bilateral, NORMAL BREATHING PATTERN - Cardiovascular Exam Cardiovascular Exam: REGULAR RHYTHM, +S1, +S2. absent: Murmur - GI/Abdominal Exam GI & Abdominal Exam: Soft, Normal Bowel Sounds. absent: Tenderness Assessment and Plan (1) Acute respiratory failure with hypoxia and hypercarbia Status: Resolved (2) Altered mental status Status: Resolved (3) Acute PA Status: Acute (4) Dehydration Status: Acute - Assessment and Plan (Free Text) Plan: continue current treatment ICU care monitor pt closely
--- NOTE | 2016-10-06 21:28 | CP.PCM.PN ---
Subjective - Date & Time of Evaluation Date of Evaluation: 10/06/16 Time of Evaluation: 12:53 - Subjective Subjective: Patient seenans examined at bedside n ICU Currently intubated, and he extubated recently. She was doing okay, but lasted patient developed a significant large amount epistaxis, which was being controlled by balloon, and the packing. Currently not bleeding. She's also having large ecchymosis on the right flank region. Mild respiratory distress noted. On Ventimask. On examination: Vital signs reviewed Blood pressure is on the high side. Chest bilateral good air entry, decreased on the left side, regular heart sound , nontender abdomen. Rhythm showing evidence of atrial flutter. Objective - Vital Signs/Intake and Output Vital Signs (last 24 hours): Temp Pulse Resp BP Pulse Ox 97.5 F L 101 H 30 H 157/73 H 96 10/06/16 16:00 10/06/16 19:00 10/06/16 19:00 10/06/16 19:00 10/06/16 19:00 Intake and Output: 10/06/16 10/07/16 18:59 06:59 Intake Total 430 0 Balance 430 0 - Medications Medications: Current Medications Albuterol/Ipratropium (Duoneb 3 Mg/0.5 Mg (3 Ml) Ud) 3 ml INH RQ4 [facility] Last Admin: 10/06/16 19:41 Dose: 3 ml Aspirin (Aspirin Chewable) 81 mg PO DAILY [facility] Last Admin: 10/05/16 09:14 Dose: 81 mg Budesonide (Pulmicort Respules) 0.5 mg INH RQ12 [facility] Last Admin: 10/06/16 19:40 Dose: 0.5 mg Clopidogrel Bisulfate (Plavix) 75 mg PO DAILY [facility] Last Admin: 10/05/16 09:14 Dose: 75 mg Diltiazem HCl (Cardizem) 60 mg PO QID [facility] Last Admin: 10/06/16 21:12 Dose: 60 mg Doxycycline Hyclate (Doryx) 100 mg PO Q12H [facility] Last Admin: 10/06/16 21:12 Dose: 100 mg Enoxaparin Sodium (Lovenox) 40 mg SC DAILY [facility] Last Admin: 10/05/16 09:14 Dose: 40 mg Famotidine (Pepcid) 20 mg PO DAILY [facility] Last Admin: 10/06/16 09:25 Dose: 20 mg Insulin Human Regular (Novolin R) 0 unit SC ACHS [facility] PRN Reason: Protocol Last Admin: 10/06/16 16:13 Dose: Not Given Lisinopril (Zestril) 20 mg NG BID [facility] Last Admin: 10/06/16 17:09 Dose: 20 mg Methylprednisolone (Solu-Medrol) 20 mg IV DAILY [facility] Metronidazole (Flagyl) 500 mg PO TID [facility] Last Admin: 10/06/16 17:08 Dose: 500 mg Polyethylene Glycol (Miralax) 17 gm PO DAILY [facility] Last Admin: 10/06/16 09:26 Dose: 17 gm Rosuvastatin Calcium (Crestor) 10 mg PO HS [facility] Last Admin: 10/05/16 21:34 Dose: 10 mg - Labs Labs: 10/06/16 01:34 10/05/16 06:42 PT 12.3 SECONDS (9.7-12.2) H 10/06/16 01:34 INR 1.1 10/06/16 01:34 APTT 27 SECONDS (21-34) 10/06/16 01:34 - Constitutional Appears: No Acute Distress, Chronically Ill - Head Exam Head Exam: ATRAUMATIC, NORMAL INSPECTION, NORMOCEPHALIC - Eye Exam Eye Exam: EOMI, Normal appearance, PERRL Pupil Exam: NORMAL ACCOMODATION, PERRL - ENT Exam ENT Exam: Mucous Membranes Dry - Respiratory Exam Respiratory Exam: Clear to Ausculation Bilateral, NORMAL BREATHING PATTERN - Cardiovascular Exam Cardiovascular Exam: REGULAR RHYTHM, +S1, +S2. absent: Murmur - GI/Abdominal Exam GI & Abdominal Exam: Soft, Normal Bowel Sounds. absent: Tenderness Assessment and Plan (1) Acute respiratory failure with hypoxia and hypercarbia Status: Resolved (2) Altered mental status Status: Resolved (3) Acute CT Status: Acute (4) Dehydration Status: Acute
[2016-10-07] MEDS: Albuterol-Ipratrop 3 mg / 0.5 (3 ml) UD INH SCH ×6 (03:06→23:26)
[2016-10-07 06:34] LABS: HEMATOCRIT 37.3 % (34.0-47.0); LYMPH # 0.9 K/uL (1.0-4.3); LYMPH % 3.3 % (20.0-40.0); MEAN CELL VOLUME 91.1 fL (81.0-99.0); MEAN CORPUSCULAR HEMOGLOBIN 30.4 pg (27.0-31.0); MEAN CORPUSCULAR HGB CONC 33.4 g/dL (33.0-37.0); MEAN PLATELET VOLUME 9.2 fL (7.2-11.7); MONO # 1.2 K/uL (0.0-0.8); MONO % 4.5 % (0.0-10.0); PLATELET COUNT 210 K/uL (130-400); RED CELL DISTRIBUTION WIDTH 14.4 % (11.5-14.5); WHITE BLOOD COUNT 26.3 K/uL (4.8-10.8)
[2016-10-07 06:45] LABS: POTASSIUM 3.3 mmol/L (3.6-5.2)
[2016-10-07 06:47] LABS: BILIRUBIN,TOTAL 0.5 mg/dL (0.2-1.3)
[2016-10-07 06:48] LABS: CALCIUM 8.4 mg/dl (8.6-10.4); MAGNESIUM 1.8 mg/dL (1.6-2.3); PHOSPHOROUS 2.6 mg/dL (2.5-4.5); TOTAL PROTEIN 5.3 g/dL (6.3-8.3)
--- NOTE | 2016-10-07 07:30 | CP.CCUPN ---
CCU Subjective - Physician Review Subjective (Free Text): 10/07/16 12:24 Patient was seen and examined in no acute distress. No acute events overnight. Packing remains in place. Patient appears more lethargic today at times as compared to her normal baseline. Patient was extubated 10/02/16 with O2 saturation in high 90s on venti mask. The patient has passed a swallow evaluation and eating though minimally. Per nursing, patient has not had a BM in 5-6 days. The patient did not comply with ROS due to somnolence. 10/07/16 14:33 Critical Care Time Spent (in minutes): 35 CCU Objective - Vital Signs / Intake & Output Vital Signs (Last 4 hours): Vital Signs Pulse Resp BP Pulse Ox 10/07/16 07:00 92 H 26 H 152/76 H 98 10/07/16 06:00 93 H 26 H 146/77 92 L 10/07/16 05:00 89 26 H 159/77 H 95 10/07/16 04:00 90 27 H 154/80 H 97 Intake and Output (Last 8hrs): Intake & Output 10/06/16 10/07/16 10/07/16 22:59 06:59 14:59 Intake Total 270 240 120 Output Total 350 50 Balance 270 -110 70 Weight 158 lb 7 oz Intake: Oral 270 240 120 Output: Urine 350 50 Urethral (Perez) 350 50 - Physical Exam Head: Positive for: Atraumatic, Normocephalic, Other (ET Tube in place) Pupils: Positive for: PERRL Extroacular Muscles: Positive for: EOMI Mouth: Positive for: Dry Nose (Internal): Positive for: Other (Nasal packing in place) Neck: Positive for: Normal Range of Motion Respiratory/Chest: Positive for: Clear to Auscultation, Good Air Exchange, Rales. Negative for: Respiratory Distress, Accessory Muscle Use Cardiovascular: Positive for: Normal S1, S2, Irregular Rhythm. Negative for: Regular Rate and Rhythm, Murmurs Abdomen: Positive for: Distention, Normal Bowel Sounds. Negative for: Peritoneal Signs, Rebound Genitourinary/Pelvic Exam: Positive for: Other (perez in place) Upper Extremity: Positive for: Normal Inspection. Negative for: Cyanosis, Edema Lower Extremity: Positive for: Normal Inspection. Negative for: Edema, CALF TENDERNESS Neurological: Positive for: CN II-XII Intact Skin: Positive for: Warm, Dry Psychiatric: Positive for: Alert - Medications Active Medications: Active Medications Generic Name Dose Route Start Last Admin Trade Name Anselmo PRN Reason Stop Dose Admin Albuterol/Ipratropium 3 ml 09/30/16 12:00 10/07/16 03:06 Duoneb 3 Mg/0.5 Mg (3 Ml) Ud INH 3 ml RQ4 [facility] Administration Aspirin 81 mg 09/24/16 18:30 10/05/16 09:14 Aspirin Chewable PO 81 mg DAILY [facility] Administration Budesonide 0.5 mg 10/02/16 20:00 10/06/16 19:40 Pulmicort Respules INH 0.5 mg RQ12 [facility] Administration Clopidogrel Bisulfate 75 mg 09/26/16 10:00 10/05/16 09:14 Plavix PO 75 mg DAILY [facility] Administration Diltiazem HCl 60 mg 10/05/16 14:00 10/06/16 21:12 Cardizem PO 60 mg QID [facility] Administration Doxycycline Hyclate 100 mg 10/06/16 10:00 10/06/16 21:12 Doryx PO 100 mg Q12H [facility] Administration Enoxaparin Sodium 40 mg 09/26/16 13:00 10/05/16 09:14 Lovenox SC 40 mg DAILY [facility] Administration Famotidine 20 mg 09/29/16 10:00 10/06/16 09:25 Pepcid PO 20 mg DAILY [facility] Administration Insulin Human Regular 0 unit 10/04/16 17:00 10/06/16 22:28 Novolin R SC Not Given ACHS [facility] Protocol Lisinopril 20 mg 10/05/16 18:00 10/06/16 17:09 Zestril NG 20 mg BID [facility] Administration Methylprednisolone 20 mg 10/07/16 10:00 Solu-Medrol IV DAILY [facility] Metronidazole 500 mg 10/06/16 14:00 10/06/16 17:08 Flagyl PO 500 mg TID [facility] Administration Polyethylene Glycol 17 gm 10/06/16 10:00 10/06/16 09:26 Miralax PO 17 gm DAILY [facility] Administration Rosuvastatin Calcium 10 mg 09/23/16 22:00 10/06/16 22:29 Crestor PO 10 mg HS [facility] Administration - Patient Studies Lab Studies: Lab Studies 10/07/16 10/07/16 10/06/16 Range/Units 07:25 06:20 21:10 WBC 26.3 H (4.8-10.8) K/uL RBC 4.09 (3.80-5.20) Mil/uL Hgb 12.4 (11.0-16.0) g/dL Hct 37.3 (34.0-47.0) % MCV 91.1 (81.0-99.0) fL MCH 30.4 (27.0-31.0) pg MCHC 33.4 (33.0-37.0) g/dL RDW 14.4 (11.5-14.5) % Plt Count 210 (130-400) K/uL MPV 9.2 (7.2-11.7) fL Neut % (Auto) 92.2 H (50.0-75.0) % Lymph % (Auto) 3.3 L (20.0-40.0) % Lamb % (Auto) 4.5 (0.0-10.0) % Eos % (Auto) 0.0 (0.0-4.0) % Baso % (Auto) 0.0 (0.0-2.0) % Neut # 24.2 H (1.8-7.0) K/uL Lymph # 0.9 L (1.0-4.3) K/uL Lamb # 1.2 H (0.0-0.8) K/uL Eos # 0.0 (0.0-0.7) K/uL Baso # 0.0 (0.0-0.2) K/uL Sodium 148 (132-148) mmol/L Potassium 3.3 L (3.6-5.2) mmol/L Chloride 101 (98-107) mmol/L Carbon Dioxide 37 H (22-30) mmol/L Anion Gap 13 (10-20) BUN 35 H (7-17) mg/dL Creatinine 1.1 (0.7-1.2) MG/DL Est GFR ( Amer) 57 Est GFR (Non-Af Amer) 47 POC Glucose (mg/dL) 132 H 139 H (65-110) mg/dL Random Glucose 132 H (65-105) mg/dL Calcium 8.4 L (8.6-10.4) mg/dl Phosphorus 2.6 (2.5-4.5) mg/dL Magnesium 1.8 (1.6-2.3) mg/dL Total Bilirubin 0.5 (0.2-1.3) mg/dL AST 42 H D (14-36) U/L ALT 53 H (9-52) U/L Alkaline Phosphatase 53 (38-126) U/L Total Protein 5.3 L (6.3-8.3) g/dL Albumin 2.7 L (3.5-5.0) g/dL Globulin 2.6 (2.2-3.9) gm/dL Albumin/Globulin Ratio 1.0 (1.0-2.1) 10/06/16 10/06/16 10/06/16 Range/Units 16:09 11:45 07:26 WBC (4.8-10.8) K/uL RBC (3.80-5.20) Mil/uL Hgb (11.0-16.0) g/dL Hct (34.0-47.0) % MCV (81.0-99.0) fL MCH (27.0-31.0) pg MCHC (33.0-37.0) g/dL RDW (11.5-14.5) % Plt Count (130-400) K/uL MPV (7.2-11.7) fL Neut % (Auto) (50.0-75.0) % Lymph % (Auto) (20.0-40.0) % Lamb % (Auto) (0.0-10.0) % Eos % (Auto) (0.0-4.0) % Baso % (Auto) (0.0-2.0) % Neut # (1.8-7.0) K/uL Lymph # (1.0-4.3) K/uL Lamb # (0.0-0.8) K/uL Eos # (0.0-0.7) K/uL Baso # (0.0-0.2) K/uL Sodium (132-148) mmol/L Potassium (3.6-5.2) mmol/L Chloride (98-107) mmol/L Carbon Dioxide (22-30) mmol/L Anion Gap (10-20) BUN (7-17) mg/dL Creatinine (0.7-1.2) MG/DL Est GFR ( Amer) Est GFR (Non-Af Amer) POC Glucose (mg/dL) 145 H 179 H 195 H (65-110) mg/dL Random Glucose (65-105) mg/dL Calcium (8.6-10.4) mg/dl Phosphorus (2.5-4.5) mg/dL Magnesium (1.6-2.3) mg/dL Total Bilirubin (0.2-1.3) mg/dL AST (14-36) U/L ALT (9-52) U/L Alkaline Phosphatase (38-126) U/L Total Protein (6.3-8.3) g/dL Albumin (3.5-5.0) g/dL Globulin (2.2-3.9) gm/dL Albumin/Globulin Ratio (1.0-2.1) Laboratory Results - last 24 hr 10/06/16 10/06/16 10/06/16 07:26 11:45 16:09 WBC RBC Hgb Hct MCV MCH MCHC RDW Plt Count MPV Neut % (Auto) Lymph % (Auto) Lamb % (Auto) Eos % (Auto) Baso % (Auto) Neut # Lymph # Lamb # Eos # Baso # Sodium Potassium Chloride Carbon Dioxide Anion Gap BUN Creatinine Est GFR ( Amer) Est GFR (Non-Af Amer) POC Glucose (mg/dL) 195 H 179 H 145 H Random Glucose Calcium Phosphorus Magnesium Total Bilirubin AST ALT Alkaline Phosphatase Total Protein Albumin Globulin Albumin/Globulin Ratio 10/06/16 10/07/16 10/07/16 21:10 06:20 07:25 WBC 26.3 H RBC 4.09 Hgb 12.4 Hct 37.3 MCV 91.1 MCH 30.4 MCHC 33.4 RDW 14.4 Plt Count 210 MPV 9.2 Neut % (Auto) 92.2 H Lymph % (Auto) 3.3 L Lamb % (Auto) 4.5 Eos % (Auto) 0.0 Baso % (Auto) 0.0 Neut # 24.2 H Lymph # 0.9 L Lamb # 1.2 H Eos # 0.0 Baso # 0.0 Sodium 148 Potassium 3.3 L Chloride 101 Carbon Dioxide 37 H Anion Gap 13 BUN 35 H Creatinine 1.1 Est GFR ( Amer) 57 Est GFR (Non-Af Amer) 47 POC Glucose (mg/dL) 139 H 132 H Random Glucose 132 H Calcium 8.4 L Phosphorus 2.6 Magnesium 1.8 Total Bilirubin 0.5 AST 42 H D ALT 53 H Alkaline Phosphatase 53 Total Protein 5.3 L Albumin 2.7 L Globulin 2.6 Albumin/Globulin Ratio 1.0 Fingerstick Blood Sugar Results: 139 Review of Systems - Review of Systems Review of Systems: Noted as per subjective portion Critical Care Progress Note - Ventilator Checklist PUD Prophalyxis: Yes DVT Prophylaxis: Yes - Extremities/Vascular Does the Patient have a Perez Catheter?: Yes - Prophylaxis GI Prophylaxis GI: Pepsid - Prophylaxis DVT Prophylaxis DVT: SCDs - Nutrition Nutrition: Nutrition Category Date Time Status Heart Healthy Diet [DIET] Diets 10/04/16 Dinner Active Assessment/Plan - Assessment and Plan (Free Text) Assessment: 86-year-old female with PMHx significant for COPD hypertension and CAD, initially presented to ICU with acute respiratory failure and hypercarbic encephalopathy. The patient was extubated 10/02/10. Patient had episode of significant epistaxis over the weekend for which nasal packing was placed. Patient remains stable. Plan: Neuro: Patient somnolent at times Did not comply with ROS 09/23/16 CT Head- Generalized atrophy. Nonspecific white matter changes. Cardiovascular: Irregularly Irregular rate- Better rate control noted HTN Diltiazem 60 mg PO QID Plavix 75mg PO daily- held due to bleed Lisinopril 20mg NG BID daily Aspirin 81mg po daily Rouvastatin 10mg po hs Pulmonary: Patient extubated 8:50AM 10/02/16 Solumedrol tapered down- 20mg IV daily Budesonide 0.5mg INH Q12 Duoneb INH q4 [facility]10/06/[address]/Pelvis- 6 mm right middle lobe pulmonary nodule- moderate bilateral pleural effusions and associated compressive consolidations 10/02/16 CXR- Possible small left pleural effusion. No infiltrate. 10/01/16 CXR- No infiltrate. Lines and tubes unchanged. 09/30/16 CXR- No active pulmonary disease. Stable position of tubes. 09/29/16 CXR- Interval improvement in the right lung since the previous exam. 09/28/16 CXR- Interval worsening of heterogeneous opacities at the right lower lung since the previous exam. Appropriate position of the ETT and NG tube. AB10/07/16 pH 7.3, CO2 74, O2 40, HCO2 30.4 10/02/16 pH 7.40, CO2 42, O2 75, HCO3 27.3 10/01/16 pH 7.38, CO2 41, O2 86, HCO3 24.3 09/30/16 pH 7.37, CO2 42, O2 97, HCO3 24.0 09/29/16 pH 7.36, CO2 44, O2 92, HCO3 24.3 09/28/16 pH 7.37, CO2 43, O2 85, HCO3 24.4 GI: No BMs in 5-6 days per nursing; BM noted by GI on 10/06- will inquire - Dulcolax MA given Pepcid 20 mg PO daily Abdominal distension- CT Abdomen 10/06/16- Cholelithiasis, anasarca, unremarkable unenhanced appearance of liver, pancreas and spleen. Stomach nondistended and bowel loops WNL w/o evidence of intestinal obstruction- moderate diffuse distension of the colon GI Consult- Dr. Ayala- Considerations for CT abdomen- See aforementioned; on Flagyl 500 mg PO TID; F/U C diff studies Gen Surg Consult- Dr. Jimenez- -no surgical intervention at this time- sign off Lactulose 20mg po HS DC- Ammonia stable 10/01/16 Abd XR- Mild dilatation of the transverse and ascending colon. No evidence of small bowel obstruction. No masses or abnormal intra-abdominal calcifications. Nasogastric tube tip in left upper quadrant of abdomen. No definite free intraperitoneal air. 09/29/16 CT ABd/Pelv- 1. Cholelithiasis without CT evidence for acute cholecystitis. 2. Colonic distention with air-fluid levels which may represent ileus or pseudo obstruction, no definite evidence of mass or colitis. 3. Mild sigmoid diverticulosis without CT evidence for acute diverticulitis. 4. Several large simple cysts in the left kidney. Nonvisualization of the right kidney. 5. Mild ascites and moderate bilateral pleural effusions. 09/29/16 Abd XR- Moderately dilated bowel loops at the mid to upper abdomen right more than left. If clinically warranted further assessment by CT is suggested. Purred diet with thin liquids s/p passing of swallow eval Hematology: Dr. Lowry to remove nasal packing on either Fri - Monitor WBC 26.3- mildly decreased from day prior Hgb/Hct stable : 12.4/37.3 Bandemia 4 Endocrine: Maintain euglycemia HbA1c- 5.9 Insulin Sliding Scale protocol Renal: Initial KAYLEN improving. BUN/Cr: 35/1.1 Hypokalemia- repleted Hypernatremia- resolved ID: U/A negative Blood Cx negative DC Abx 10/03/16 : Perez in place MSK: None Palliative Care: Palliative Care Consult Placed- F/U Prophylaxis- Pepcid 20mg po daily Lovenox 40mg sc daily, SCDs in place Ensure Enlive - three times a day
[2016-10-07] MEDS: Budesonide 0.5 mg/2 ml Inhal Susp UD INH SCH ×2 (07:38→19:18)
[2016-10-07] MEDS: (Novolin R) Insulin Human Regular 100 units/ml vial SC SCH ×4 (08:25→21:14)
[2016-10-07 08:42] LABS: NEUTROPHIL 89 % (50-75); REACTIVE LYMPHOCYTES 1 % (0-0); TOTAL CELLS COUNTED 100
[2016-10-07] MEDS ORDERED: Potassium Chloride 20 mEq ER Tab PO ONE (08:45)
--- NOTE | 2016-10-07 10:16 | CP.PCM.PN ---
Subjective - Date & Time of Evaluation Date of Evaluation: 10/06/16 Time of Evaluation: 08:00 - Subjective Subjective: 86 year old female well know to my partner admitted to [facility] for severe hemiparesis of the right side. This started one day prior to admission. Occured in the context of an acute CVA. Objective - Vital Signs/Intake and Output Vital Signs (last 24 hours): Temp Pulse Resp BP Pulse Ox 97.4 F L 92 H 26 H 152/76 H 98 10/07/16 08:00 10/07/16 07:00 10/07/16 07:00 10/07/16 07:00 10/07/16 07:00 Intake and Output: 10/07/16 10/07/16 06:59 18:59 Intake Total 480 120 Output Total 350 50 Balance 130 70 - Medications Medications: Current Medications Albuterol/Ipratropium (Duoneb 3 Mg/0.5 Mg (3 Ml) Ud) 3 ml INH RQ4 [facility] Last Admin: 10/07/16 07:38 Dose: 3 ml Aspirin (Aspirin Chewable) 81 mg PO DAILY [facility] Last Admin: 10/05/16 09:14 Dose: 81 mg Budesonide (Pulmicort Respules) 0.5 mg INH RQ12 [facility] Last Admin: 10/07/16 07:38 Dose: 0.5 mg Clopidogrel Bisulfate (Plavix) 75 mg PO DAILY [facility] Last Admin: 10/05/16 09:14 Dose: 75 mg Diltiazem HCl (Cardizem) 60 mg PO QID [facility] Last Admin: 10/06/16 21:12 Dose: 60 mg Doxycycline Hyclate (Doryx) 100 mg PO Q12H [facility] Last Admin: 10/06/16 21:12 Dose: 100 mg Enoxaparin Sodium (Lovenox) 40 mg SC DAILY [facility] Last Admin: 10/05/16 09:14 Dose: 40 mg Famotidine (Pepcid) 20 mg PO DAILY [facility] Last Admin: 10/06/16 09:25 Dose: 20 mg Insulin Human Regular (Novolin R) 0 unit SC ACHS [facility] PRN Reason: Protocol Last Admin: 10/07/16 08:25 Dose: Not Given Lisinopril (Zestril) 20 mg NG BID [facility] Last Admin: 10/06/16 17:09 Dose: 20 mg Methylprednisolone (Solu-Medrol) 20 mg IV DAILY [facility] Metronidazole (Flagyl) 500 mg PO TID [facility] Last Admin: 10/06/16 17:08 Dose: 500 mg Polyethylene Glycol (Miralax) 17 gm PO DAILY [facility] Last Admin: 10/06/16 09:26 Dose: 17 gm Rosuvastatin Calcium (Crestor) 10 mg PO HS [facility] Last Admin: 10/06/16 22:29 Dose: 10 mg - Labs Labs: 10/07/16 06:20 10/07/16 06:20 PT 12.3 SECONDS (9.7-12.2) H 10/06/16 01:34 INR 1.1 10/06/16 01:34 APTT 27 SECONDS (21-34) 10/06/16 01:34 - Constitutional Appears: Well, Non-toxic - Head Exam Head Exam: ATRAUMATIC, NORMAL INSPECTION - Eye Exam Eye Exam: Scleral icterus (left lateral gaze) - ENT Exam ENT Exam: Mucous Membranes Dry - Neck Exam Neck Exam: absent: Lymphadenopathy, Thyromegaly - Respiratory Exam Respiratory Exam: Clear to Ausculation Bilateral, NORMAL BREATHING PATTERN - Cardiovascular Exam Cardiovascular Exam: Irregular Rhythm, JVD, +S1, +S2, +S4 (No JVD, No LE edema ) - GI/Abdominal Exam GI & Abdominal Exam: Normal Bowel Sounds. absent: Organomegaly - Neurological Exam Neuro motor strength exam: Left Upper Extremity: 5, Right Upper Extremity: 2/1, Left Lower Extremity: 5, Right Lower Extremity: 2/1 - Psychiatric Exam Psychiatric exam: Flat Affect (Non Verbal )
[2016-10-07] MEDS ORDERED: Potassium Chloride 20 mEq/15 ml LIQ UD PO ONE (10:28)
[2016-10-07] MEDS: MethylPREDNISolone 40 mg Vial IV SCH (10:40)
[2016-10-07 10:41] LABS: ABG ALLEN TEST PO; ARTERIAL BLOOD HGB O2 SAT 76.6 % (95.0-98.0); CARBOXYHEMOGLOBIN 2.2 % (0.5-1.5); DRAW SITE RRA; METHEMOGLOBIN 1.2 % (0.0-3.0)
[2016-10-07] MEDS: POLYETHYLENE GLYCOL 3350 17 GM/Dose PACKET PO SCH (10:41)
--- NOTE | 2016-10-07 11:02 | CP.PCM.PN ---
Subjective - Date & Time of Evaluation Date of Evaluation: 10/07/16 Time of Evaluation: 08:00 - Subjective Subjective: Patient seen and examined in the intensive care unit. Previous events noted. Status post nasal packing for epistaxis Plavix and Lovenox on hold More lethargic today Mild respiratory distress on Ventimask Saturation in the mid 90s Afebrile Objective - Vital Signs/Intake and Output Vital Signs (last 24 hours): Temp Pulse Resp BP Pulse Ox 97.4 F L 92 H 26 H 152/76 H 98 10/07/16 08:00 10/07/16 07:00 10/07/16 07:00 10/07/16 07:00 10/07/16 07:00 Intake and Output: 10/07/16 10/07/16 06:59 18:59 Intake Total 480 120 Output Total 350 50 Balance 130 70 - Medications Medications: Current Medications Albuterol/Ipratropium (Duoneb 3 Mg/0.5 Mg (3 Ml) Ud) 3 ml INH RQ4 [facility] Last Admin: 10/07/16 07:38 Dose: 3 ml Aspirin (Aspirin Chewable) 81 mg PO DAILY [facility] Last Admin: 10/05/16 09:14 Dose: 81 mg Budesonide (Pulmicort Respules) 0.5 mg INH RQ12 [facility] Last Admin: 10/07/16 07:38 Dose: 0.5 mg Clopidogrel Bisulfate (Plavix) 75 mg PO DAILY [facility] Last Admin: 10/05/16 09:14 Dose: 75 mg Diltiazem HCl (Cardizem) 60 mg PO QID [facility] Last Admin: 10/07/16 10:40 Dose: 60 mg Doxycycline Hyclate (Doryx) 100 mg PO Q12H [facility] Last Admin: 10/07/16 10:40 Dose: 100 mg Enoxaparin Sodium (Lovenox) 40 mg SC DAILY [facility] Last Admin: 10/05/16 09:14 Dose: 40 mg Famotidine (Pepcid) 20 mg PO DAILY [facility] Last Admin: 10/07/16 10:40 Dose: 20 mg Insulin Human Regular (Novolin R) 0 unit SC ACHS [facility] PRN Reason: Protocol Last Admin: 10/07/16 08:25 Dose: Not Given Lisinopril (Zestril) 20 mg NG BID [facility] Last Admin: 10/07/16 10:40 Dose: 20 mg Methylprednisolone (Solu-Medrol) 20 mg IV DAILY [facility] Last Admin: 10/07/16 10:40 Dose: 20 mg Metronidazole (Flagyl) 500 mg PO TID [facility] Last Admin: 10/07/16 10:40 Dose: 500 mg Polyethylene Glycol (Miralax) 17 gm PO DAILY [facility] Last Admin: 10/07/16 10:41 Dose: Not Given Rosuvastatin Calcium (Crestor) 10 mg PO HS [facility] Last Admin: 10/06/16 22:29 Dose: 10 mg - Labs Labs: 10/07/16 06:20 10/07/16 06:20 PT 12.3 SECONDS (9.7-12.2) H 10/06/16 01:34 INR 1.1 10/06/16 01:34 APTT 27 SECONDS (21-34) 10/06/16 01:34 - Head Exam Head Exam: ATRAUMATIC, NORMOCEPHALIC - Eye Exam Eye Exam: Normal appearance - ENT Exam ENT Exam: Mucous Membranes Moist - Neck Exam Neck Exam: Normal Inspection - Respiratory Exam Respiratory Exam: Decreased Breath Sounds - Cardiovascular Exam Cardiovascular Exam: REGULAR RHYTHM - Extremities Exam Extremities Exam: Normal Inspection - Neurological Exam Neurological Exam: Altered Assessment and Plan (1) COPD (chronic obstructive pulmonary disease) Assessment & Plan: Continue Ventimask and BiPAP as needed Continue nebulizer treatment and IV steroids ENT follow-up for epistaxis Continue to hold anticoagulation Elevated white count secondary to steroids Continue to watch respiratory status Status: Chronic (2) Acute CA Status: Acute (3) Leucocytosis Status: Acute
--- NOTE | 2016-10-07 11:25 | CT ---
PROCEDURE: CT Abdomen and Pelvis without IV contrast. HISTORY: Abdominal distension COMPARISON: CT abdomen and pelvis without IV contrast performed 09/29/16 TECHNIQUE: Contiguous axial images of the abdomen and pelvis. Oral contrast was administered. No IV contrast given. Coronal and Sagittal reformats generated. Radiation dose: Total exam DLP = 998.05 mGy-cm. FINDINGS: There is limited evaluation of the solid organs without the administration of IV contrast. LOWER THORAX: 6 mm right middle lobe pulmonary nodule. Moderate bilateral pleural effusions and associated compressive consolidations. Small pericardial effusion. Small hiatal hernia/ distal esophageal wall thickening. LIVER: Unremarkable unenhanced appearance. GALLBLADDER AND BILE DUCTS: Cholelithiasis. Additional probable high-density sludge or small stones. PANCREAS: Unremarkable unenhanced appearance. SPLEEN: Unremarkable unenhanced appearance. ADRENALS: Right adrenal gland hypertrophy. Soft tissue in the region of the right adrenal gland worrisome for mass. KIDNEYS AND URETERS: The right kidney is absent. Multiple large left probable renal cysts measuring up to 10.3 cm. BLADDER: The urinary bladder appears unremarkable. REPRODUCTIVE: The uterus is present and contains an approximately 6.6 cm calcified/degenerating fibroid. APPENDIX: The presumed appendix appears within normal limits of caliber. No secondary signs of acute appendicitis. BOWEL: The stomach is nondistended. The bowel loops appear within normal limits of caliber without evidence of intestinal obstruction. Moderate diffuse distention of the colon. PERITONEUM: Small abdominal ascites. Probable focal fluid in the right pericolic gutter No definite free air. LYMPH NODES: Mesenteric and retroperitoneal adenopathy, difficult to assess due to lack of IV contrast. VASCULATURE: No aortic aneurysm. BONES: Multilevel degenerative changes. Osseous demineralization limits evaluation for acute fracture lines. Focal sclerotic region involving the T12 vertebral body re-identified. OTHER FINDINGS: Anasarca. IMPRESSION: Cholelithiasis. Unilateral left kidney with multiple large probable cysts. Left adrenal gland thickening. Suspect right adrenal gland mass. Focal probable fluid within the right pericolic gutter. Moderate-sized bilateral pleural effusions and associated consolidations. Trace pericardial effusion. Mesenteric and retroperitoneal adenopathy difficult to assess due to lack of IV contrast. Findings/ variances from preliminary report were discussed with the patient's RN Brianna on 10/07/16 at 11:17 a.m.. Preliminary impression was provided by [employer].
--- NOTE | 2016-10-07 16:53 | CP.PCM.PN ---
Subjective - Date & Time of Evaluation Date of Evaluation: 10/07/16 Time of Evaluation: 16:51 - Subjective Subjective: CC: follow up colon ileus No BM's though abdomen not distended or tender. CT shows some colon distension without obstruction + gallstones. Eating poorly. Lethargic. Not thriving. No further epistaxis. Marked leukocytosis. Begun empiric CDiff treatment with Flagyl, though no diarrhea. Objective - Vital Signs/Intake and Output Vital Signs (last 24 hours): Temp Pulse Resp BP Pulse Ox 98.4 F 99 H 33 H 154/81 H 91 L 10/07/16 12:00 10/07/16 15:30 10/07/16 15:30 10/07/16 15:02 10/07/16 15:30 Intake and Output: 10/07/16 10/07/16 06:59 18:59 Intake Total 480 170 Output Total 350 290 Balance 130 -120 - Medications Medications: Current Medications Albuterol/Ipratropium (Duoneb 3 Mg/0.5 Mg (3 Ml) Ud) 3 ml INH RQ4 [facility] Last Admin: 10/07/16 15:34 Dose: 3 ml Aspirin (Aspirin Chewable) 81 mg PO DAILY [facility] Last Admin: 10/05/16 09:14 Dose: 81 mg Budesonide (Pulmicort Respules) 0.5 mg INH RQ12 [facility] Last Admin: 10/07/16 07:38 Dose: 0.5 mg Clopidogrel Bisulfate (Plavix) 75 mg PO DAILY [facility] Last Admin: 10/05/16 09:14 Dose: 75 mg Diltiazem HCl (Cardizem) 60 mg PO QID [facility] Last Admin: 10/07/16 10:40 Dose: 60 mg Doxycycline Hyclate (Doryx) 100 mg PO Q12H [facility] Last Admin: 10/07/16 10:40 Dose: 100 mg Enoxaparin Sodium (Lovenox) 40 mg SC DAILY [facility] Last Admin: 10/05/16 09:14 Dose: 40 mg Famotidine (Pepcid) 20 mg PO DAILY [facility] Last Admin: 10/07/16 10:40 Dose: 20 mg Insulin Human Regular (Novolin R) 0 unit SC ACHS [facility] PRN Reason: Protocol Last Admin: 10/07/16 15:52 Dose: Not Given Lisinopril (Zestril) 20 mg NG BID [facility] Last Admin: 10/07/16 10:40 Dose: 20 mg Methylprednisolone (Solu-Medrol) 20 mg IV DAILY [facility] Last Admin: 10/07/16 10:40 Dose: 20 mg Metronidazole (Flagyl) 500 mg PO TID [facility] Last Admin: 10/07/16 10:40 Dose: 500 mg Polyethylene Glycol (Miralax) 17 gm PO DAILY [facility] Last Admin: 10/07/16 10:41 Dose: Not Given Rosuvastatin Calcium (Crestor) 10 mg PO HS [facility] Last Admin: 10/06/16 22:29 Dose: 10 mg - Labs Labs: 10/07/16 06:20 10/07/16 06:20 PT 12.3 SECONDS (9.7-12.2) H 10/06/16 01:34 INR 1.1 10/06/16 01:34 APTT 27 SECONDS (21-34) 10/06/16 01:34 - Constitutional Appears: Confused, Chronically Ill - Head Exam Head Exam: NORMOCEPHALIC - Eye Exam Eye Exam: absent: Scleral icterus - Respiratory Exam Respiratory Exam: NORMAL BREATHING PATTERN - Cardiovascular Exam Cardiovascular Exam: Tachycardia, REGULAR RHYTHM - GI/Abdominal Exam GI & Abdominal Exam: Soft, Normal Bowel Sounds. absent: Tenderness, Mass, Organomegaly Assessment and Plan (1) Respiratory failure Assessment & Plan: Off vent Managed by Pulmonary Status: Chronic (2) Abdominal distension Assessment & Plan: No BM. Ileus. Not obstructed on CT. Not eating. Will start Amitiza (if available) Status: Acute
[2016-10-07] MEDS: Lactated Ringer's 1,000 ML IV SCH (21:11)
[2016-10-07] MEDS: metroNIDAZOLE IV 500 mg/100 ml 100 ML IVPB SCH (21:59)
[2016-10-08] MEDS: Albuterol-Ipratrop 3 mg / 0.5 (3 ml) UD INH SCH ×4 (03:05→20:08)
[2016-10-08] MEDS: metroNIDAZOLE IV 500 mg/100 ml 100 ML IVPB SCH ×3 (05:23→21:48)
[2016-10-08 06:26] LABS: BASO % 0.1 % (0.0-2.0); LYMPH # 0.6 K/uL (1.0-4.3); LYMPH % 2.6 % (20.0-40.0); MEAN CELL VOLUME 92.2 fL (81.0-99.0); MEAN CORPUSCULAR HEMOGLOBIN 28.9 pg (27.0-31.0); MEAN CORPUSCULAR HGB CONC 31.4 g/dL (33.0-37.0); MEAN PLATELET VOLUME 9.8 fL (7.2-11.7); MONO # 0.9 K/uL (0.0-0.8); MONO % 3.7 % (0.0-10.0); PLATELET COUNT 190 K/uL (130-400); RED CELL DISTRIBUTION WIDTH 14.8 % (11.5-14.5); WHITE BLOOD COUNT 25.2 K/uL (4.8-10.8)
[2016-10-08 06:37] LABS: POTASSIUM 3.5 mmol/L (3.6-5.2)
[2016-10-08 06:39] LABS: ALB/GLOB RATIO 1.2 (1.0-2.1); BILIRUBIN,TOTAL 0.4 mg/dL (0.2-1.3); TOTAL PROTEIN 5.1 g/dL (6.3-8.3)
[2016-10-08 06:40] LABS: CALCIUM 8.1 mg/dl (8.6-10.4); MAGNESIUM 1.8 mg/dL (1.6-2.3); PHOSPHOROUS 3.2 mg/dL (2.5-4.5)
[2016-10-08] MEDS: Budesonide 0.5 mg/2 ml Inhal Susp UD INH SCH (07:46)
[2016-10-08] MEDS ORDERED: Potassium Chloride 20 mEq/15 ml LIQ UD PO ONE (07:55)
[2016-10-08 08:17] LABS: NEUTROPHIL 92 % (50-75); TOTAL CELLS COUNTED 100
[2016-10-08] MEDS: (Novolin R) Insulin Human Regular 100 units/ml vial SC SCH ×2 (08:29→11:30)
--- NOTE | 2016-10-08 08:42 | CP.CCUPN ---
<Katarzyna Hearn - Last Filed: 10/08/16 13:50> CCU Subjective - Physician Review Events Since Last Encounter (Free Text): 10/08/16 12:48 Pt seen and examined though increasingly lethargic on evaluation and as per nursing. Patient desaturated into the 80's in mild distress prompting the need for intubation. A ROS could not be obtained due to patient's lethargy 10/08/16 12:50 Subjective (Free Text): 10/07/16 12:24 Patient was seen and examined in no acute distress. No acute events overnight. Packing remains in place. Patient appears more lethargic today at times as compared to her normal baseline. Patient was extubated 10/02/16 with O2 saturation in high 90s on venti mask. The patient has passed a swallow evaluation and eating though minimally. Per nursing, patient has not had a BM in 5-6 days. The patient did not comply with ROS due to somnolence. Critical Care Time Spent (in minutes): 36 CCU Objective - Vital Signs / Intake & Output Vital Signs (Last 4 hours): Vital Signs Pulse Resp BP Pulse Ox 10/08/16 08:00 95 H 32 H 158/75 H 93 L 10/08/16 07:00 95 H 31 H 155/84 H 93 L 10/08/16 06:00 101 H 32 H 157/80 H 94 L 10/08/16 05:00 100 H 32 H 154/76 H 94 L Intake and Output (Last 8hrs): Intake & Output 10/07/16 10/08/16 10/08/16 22:59 06:59 14:59 Intake Total 325 750 225 Output Total 310 320 90 Balance 15 430 135 Weight 154 lb 2 oz Intake: Intake, IV Amount 325 750 225 Right Forearm 250 750 150 Right Wrist 0 right arm 75 75 Oral 0 Output: Urine 310 320 90 Urethral (Perez) 310 320 90 - Physical Exam Head: Positive for: Atraumatic, Normocephalic, Other (ET Tube in place) Pupils: Positive for: PERRL Extroacular Muscles: Positive for: EOMI Conjunctiva: Positive for: Injected Mouth: Positive for: Dry Nose (Internal): Positive for: Other (Nasal packing in place) Neck: Positive for: Normal Range of Motion Respiratory/Chest: Positive for: Clear to Auscultation, Good Air Exchange, Rales. Negative for: Respiratory Distress, Accessory Muscle Use Cardiovascular: Positive for: Normal S1, S2, Irregular Rhythm. Negative for: Regular Rate and Rhythm, Murmurs Abdomen: Positive for: Distention, Normal Bowel Sounds. Negative for: Peritoneal Signs, Rebound Genitourinary/Pelvic Exam: Positive for: Other (perez in place) Upper Extremity: Positive for: Normal Inspection. Negative for: Cyanosis, Edema Lower Extremity: Positive for: Normal Inspection. Negative for: Edema, CALF TENDERNESS Neurological: Positive for: CN II-XII Intact Skin: Positive for: Warm, Dry Psychiatric: Positive for: Alert - Medications Active Medications: Active Medications Generic Name Dose Route Start Last Admin Trade Name Freq PRN Reason Stop Dose Admin Albuterol/Ipratropium 3 ml 09/30/16 12:00 10/08/16 07:45 Duoneb 3 Mg/0.5 Mg (3 Ml) Ud INH 3 ml RQ4 KAILA Administration Aspirin 81 mg 09/24/16 18:30 10/05/16 09:14 Aspirin Chewable PO 81 mg DAILY KAILA Administration Budesonide 0.5 mg 10/02/16 20:00 10/08/16 07:46 Pulmicort Respules INH 0.5 mg RQ12 KAILA Administration Clopidogrel Bisulfate 75 mg 09/26/16 10:00 10/05/16 09:14 Plavix PO 75 mg DAILY KAILA Administration Diltiazem HCl 5 mg 10/07/16 21:00 10/08/16 02:44 Cardizem IVP 5 mg Q6H KAILA Administration Enoxaparin Sodium 40 mg 09/26/16 13:00 10/05/16 09:14 Lovenox SC 40 mg DAILY KAILA Administration Famotidine 20 mg 09/29/16 10:00 10/07/16 10:40 Pepcid PO 20 mg DAILY KAILA Administration Doxycycline Hyclate 100 mg/ 100 mls @ 100 mls/hr 10/07/16 05:00 10/08/16 05:22 Sodium Chloride IVPB 100 mls/hr Q12H KAILA Administration Lactated Ringer's 1,000 mls @ 75 mls/hr 10/07/16 21:00 10/07/16 21:11 Lactated Ringer's IV 75 mls/hr .[id number] KAILA Administration Metronidazole 100 mls @ 100 mls/hr 10/07/16 22:00 10/08/16 05:23 Flagyl IVPB 100 mls/hr Q8 KAILA Administration Insulin Human Regular 0 unit 10/04/16 17:00 10/08/16 08:29 Novolin R SC Not Given ACHS [facility] Protocol Lisinopril 20 mg 10/05/16 18:00 10/07/16 18:08 Zestril NG 20 mg BID KAILA Administration Methylprednisolone 20 mg 10/07/16 10:00 10/07/16 10:40 Solu-Medrol IV 20 mg DAILY KAILA Administration Polyethylene Glycol 17 gm 10/06/16 10:00 10/07/16 10:41 Miralax PO Not Given DAILY KAILA Rosuvastatin Calcium 10 mg 09/23/16 22:00 10/07/16 21:14 Crestor PO Not Given HS KAILA - Patient Studies Lab Studies: Lab Studies 10/08/16 10/08/16 10/07/16 Range/Units 07:11 06:08 21:06 WBC 25.2 H (4.8-10.8) K/uL RBC 4.12 (3.80-5.20) Mil/uL Hgb 11.9 (11.0-16.0) g/dL Hct 38.0 (34.0-47.0) % MCV 92.2 (81.0-99.0) fL MCH 28.9 (27.0-31.0) pg MCHC 31.4 L (33.0-37.0) g/dL RDW 14.8 H (11.5-14.5) % Plt Count 190 (130-400) K/uL MPV 9.8 (7.2-11.7) fL Neut % (Auto) 93.6 H (50.0-75.0) % Lymph % (Auto) 2.6 L (20.0-40.0) % [place] % (Auto) 3.7 (0.0-10.0) % Eos % (Auto) 0.0 (0.0-4.0) % Baso % (Auto) 0.1 (0.0-2.0) % Neut # 23.6 H (1.8-7.0) K/uL Lymph # 0.6 L (1.0-4.3) K/uL [place] # 0.9 H (0.0-0.8) K/uL Eos # 0.0 (0.0-0.7) K/uL Baso # 0.0 (0.0-0.2) K/uL Neutrophils % (Manual) 92 H (50-75) % Band Neutrophils % (0-2) % Lymphocytes % (Manual) 6 L (20-40) % Reactive Lymphs % (0-0) % Monocytes % (Manual) 2 (0-10) % Platelet Estimate Normal (NORMAL) RBC Morphology Anisocytosis (manual) Slight Puncture Site pCO2 (35-45) mm/Hg pO2 (80-100) mm/Hg HCO3 (21-28) mmol/L ABG pH (7.35-7.45) ABG Total CO2 (22-28) mmol/L ABG O2 Saturation (95-98) % ABG Base Excess (-2.0-3.0) mmol/L ABG Hemoglobin (11.7-17.4) g/dL ABG Carboxyhemoglobin (0.5-1.5) % POC ABG HHb (Measured) (0.0-5.0) % ABG Methemoglobin (0.0-3.0) % Fish Test A-a O2 Difference mm/Hg Respiratory Index Hgb O2 Saturation (95.0-98.0) % FiO2 % Crit Value Called To Crit Value Called By Crit Value Read Back Blood Gas Notified Time Sodium 146 (132-148) mmol/L Potassium 3.5 L (3.6-5.2) mmol/L Chloride 102 (98-107) mmol/L Carbon Dioxide 33 H (22-30) mmol/L Anion Gap 15 (10-20) BUN 34 H (7-17) mg/dL Creatinine 1.1 (0.7-1.2) MG/DL Est GFR ( Amer) 57 Est GFR (Non-Af Amer) 47 POC Glucose (mg/dL) 132 H 175 H (65-110) mg/dL Random Glucose 125 H (65-105) mg/dL Calcium 8.1 L (8.6-10.4) mg/dl Phosphorus 3.2 (2.5-4.5) mg/dL Magnesium 1.8 (1.6-2.3) mg/dL Total Bilirubin 0.4 (0.2-1.3) mg/dL AST 40 H (14-36) U/L ALT 56 H (9-52) U/L Alkaline Phosphatase 56 (38-126) U/L Total Protein 5.1 L (6.3-8.3) g/dL Albumin 2.8 L (3.5-5.0) g/dL Globulin 2.4 (2.2-3.9) gm/dL Albumin/Globulin Ratio 1.2 (1.0-2.1) 10/07/16 10/07/16 10/07/16 Range/Units 16:07 11:32 10:34 WBC (4.8-10.8) K/uL RBC (3.80-5.20) Mil/uL Hgb (11.0-16.0) g/dL Hct (34.0-47.0) % MCV (81.0-99.0) fL MCH (27.0-31.0) pg MCHC (33.0-37.0) g/dL RDW (11.5-14.5) % Plt Count (130-400) K/uL MPV (7.2-11.7) fL Neut % (Auto) (50.0-75.0) % Lymph % (Auto) (20.0-40.0) % [place] % (Auto) (0.0-10.0) % Eos % (Auto) (0.0-4.0) % Baso % (Auto) (0.0-2.0) % Neut # (1.8-7.0) K/uL Lymph # (1.0-4.3) K/uL [place] # (0.0-0.8) K/uL Eos # (0.0-0.7) K/uL Baso # (0.0-0.2) K/uL Neutrophils % (Manual) (50-75) % Band Neutrophils % (0-2) % Lymphocytes % (Manual) (20-40) % Reactive Lymphs % (0-0) % Monocytes % (Manual) (0-10) % Platelet Estimate (NORMAL) RBC Morphology Anisocytosis (manual) Puncture Site Rra pCO2 74 H* (35-45) mm/Hg pO2 40 L* (80-100) mm/Hg HCO3 30.4 H (21-28) mmol/L ABG pH 7.30 L (7.35-7.45) ABG Total CO2 38.7 H (22-28) mmol/L ABG O2 Saturation 79.3 L (95-98) % ABG Base Excess 7.6 H (-2.0-3.0) mmol/L ABG Hemoglobin 11.8 (11.7-17.4) g/dL ABG Carboxyhemoglobin 2.2 H (0.5-1.5) % POC ABG HHb (Measured) 20.0 H (0.0-5.0) % ABG Methemoglobin 1.2 (0.0-3.0) % Fish Test Po A-a O2 Difference 224.0 mm/Hg Respiratory Index 5.6 Hgb O2 Saturation 76.6 L (95.0-98.0) % FiO2 50.0 % Crit Value Called To md Mienrva Crit Value Called By Cayden,radames Crit Value Read Back Y Blood Gas Notified Time 1045 Sodium (132-148) mmol/L Potassium (3.6-5.2) mmol/L Chloride (98-107) mmol/L Carbon Dioxide (22-30) mmol/L Anion Gap (10-20) BUN (7-17) mg/dL Creatinine (0.7-1.2) MG/DL Est GFR ( Amer) Est GFR (Non-Af Amer) POC Glucose (mg/dL) 162 H 156 H (65-110) mg/dL Random Glucose (65-105) mg/dL Calcium (8.6-10.4) mg/dl Phosphorus (2.5-4.5) mg/dL Magnesium (1.6-2.3) mg/dL Total Bilirubin (0.2-1.3) mg/dL AST (14-36) U/L ALT (9-52) U/L Alkaline Phosphatase (38-126) U/L Total Protein (6.3-8.3) g/dL Albumin (3.5-5.0) g/dL Globulin (2.2-3.9) gm/dL Albumin/Globulin Ratio (1.0-2.1) 10/07/16 Range/Units 06:20 WBC (4.8-10.8) K/uL RBC (3.80-5.20) Mil/uL Hgb (11.0-16.0) g/dL Hct (34.0-47.0) % MCV (81.0-99.0) fL MCH (27.0-31.0) pg MCHC (33.0-37.0) g/dL RDW (11.5-14.5) % Plt Count (130-400) K/uL MPV (7.2-11.7) fL Neut % (Auto) (50.0-75.0) % Lymph % (Auto) (20.0-40.0) % [place] % (Auto) (0.0-10.0) % Eos % (Auto) (0.0-4.0) % Baso % (Auto) (0.0-2.0) % Neut # (1.8-7.0) K/uL Lymph # (1.0-4.3) K/uL [place] # (0.0-0.8) K/uL Eos # (0.0-0.7) K/uL Baso # (0.0-0.2) K/uL Neutrophils % (Manual) 89 H (50-75) % Band Neutrophils % 4 H (0-2) % Lymphocytes % (Manual) 4 L (20-40) % Reactive Lymphs % 1 H (0-0) % Monocytes % (Manual) 2 (0-10) % Platelet Estimate Normal (NORMAL) RBC Morphology Normal Anisocytosis (manual) Puncture Site pCO2 (35-45) mm/Hg pO2 (80-100) mm/Hg HCO3 (21-28) mmol/L ABG pH (7.35-7.45) ABG Total CO2 (22-28) mmol/L ABG O2 Saturation (95-98) % ABG Base Excess (-2.0-3.0) mmol/L ABG Hemoglobin (11.7-17.4) g/dL ABG Carboxyhemoglobin (0.5-1.5) % POC ABG HHb (Measured) (0.0-5.0) % ABG Methemoglobin (0.0-3.0) % Fish Test A-a O2 Difference mm/Hg Respiratory Index Hgb O2 Saturation (95.0-98.0) % FiO2 % Crit Value Called To Crit Value Called By Crit Value Read Back Blood Gas Notified Time Sodium (132-148) mmol/L Potassium (3.6-5.2) mmol/L Chloride (98-107) mmol/L Carbon Dioxide (22-30) mmol/L Anion Gap (10-20) BUN (7-17) mg/dL Creatinine (0.7-1.2) MG/DL Est GFR ( Amer) Est GFR (Non-Af Amer) POC Glucose (mg/dL) (65-110) mg/dL Random Glucose (65-105) mg/dL Calcium (8.6-10.4) mg/dl Phosphorus (2.5-4.5) mg/dL Magnesium (1.6-2.3) mg/dL Total Bilirubin (0.2-1.3) mg/dL AST (14-36) U/L ALT (9-52) U/L Alkaline Phosphatase (38-126) U/L Total Protein (6.3-8.3) g/dL Albumin (3.5-5.0) g/dL Globulin (2.2-3.9) gm/dL Albumin/Globulin Ratio (1.0-2.1) Laboratory Results - last 24 hr 10/07/16 10/07/16 10/07/16 06:20 10:34 11:32 WBC RBC Hgb Hct MCV MCH MCHC RDW Plt Count MPV Neut % (Auto) Lymph % (Auto) [place] % (Auto) Eos % (Auto) Baso % (Auto) Neut # Lymph # [place] # Eos # Baso # Neutrophils % (Manual) 89 H Band Neutrophils % 4 H Lymphocytes % (Manual) 4 L Reactive Lymphs % 1 H Monocytes % (Manual) 2 Platelet Estimate Normal RBC Morphology Normal Anisocytosis (manual) Puncture Site Rra pCO2 74 H* pO2 40 L* HCO3 30.4 H ABG pH 7.30 L ABG Total CO2 38.7 H ABG O2 Saturation 79.3 L ABG Base Excess 7.6 H ABG Hemoglobin 11.8 ABG Carboxyhemoglobin 2.2 H POC ABG HHb (Measured) 20.0 H ABG Methemoglobin 1.2 Fish Test Po A-a O2 Difference 224.0 Respiratory Index 5.6 Hgb O2 Saturation 76.6 L FiO2 50.0 Crit Value Called To md Minerva Crit Value Called By Cayden,radames Crit Value Read Back Y Blood Gas Notified Time 1045 Sodium Potassium Chloride Carbon Dioxide Anion Gap BUN Creatinine Est GFR ( Amer) Est GFR (Non-Af Amer) POC Glucose (mg/dL) 156 H Random Glucose Calcium Phosphorus Magnesium Total Bilirubin AST ALT Alkaline Phosphatase Total Protein Albumin Globulin Albumin/Globulin Ratio 10/07/16 10/07/16 10/08/16 16:07 21:06 06:08 WBC 25.2 H RBC 4.12 Hgb 11.9 Hct 38.0 MCV 92.2 MCH 28.9 MCHC 31.4 L RDW 14.8 H Plt Count 190 MPV 9.8 Neut % (Auto) 93.6 H Lymph % (Auto) 2.6 L [place] % (Auto) 3.7 Eos % (Auto) 0.0 Baso % (Auto) 0.1 Neut # 23.6 H Lymph # 0.6 L [place] # 0.9 H Eos # 0.0 Baso # 0.0 Neutrophils % (Manual) 92 H Band Neutrophils % Lymphocytes % (Manual) 6 L Reactive Lymphs % Monocytes % (Manual) 2 Platelet Estimate Normal RBC Morphology Anisocytosis (manual) Slight Puncture Site pCO2 pO2 HCO3 ABG pH ABG Total CO2 ABG O2 Saturation ABG Base Excess ABG Hemoglobin ABG Carboxyhemoglobin POC ABG HHb (Measured) ABG Methemoglobin Fish Test A-a O2 Difference Respiratory Index Hgb O2 Saturation FiO2 Crit Value Called To Crit Value Called By Crit Value Read Back Blood Gas Notified Time Sodium 146 Potassium 3.5 L Chloride 102 Carbon Dioxide 33 H Anion Gap 15 BUN 34 H Creatinine 1.1 Est GFR ( Amer) 57 Est GFR (Non-Af Amer) 47 POC Glucose (mg/dL) 162 H 175 H Random Glucose 125 H Calcium 8.1 L Phosphorus 3.2 Magnesium 1.8 Total Bilirubin 0.4 AST 40 H ALT 56 H Alkaline Phosphatase 56 Total Protein 5.1 L Albumin 2.8 L Globulin 2.4 Albumin/Globulin Ratio 1.2 10/08/16 07:11 WBC RBC Hgb Hct MCV MCH MCHC RDW Plt Count MPV Neut % (Auto) Lymph % (Auto) [place] % (Auto) Eos % (Auto) Baso % (Auto) Neut # Lymph # [place] # Eos # Baso # Neutrophils % (Manual) Band Neutrophils % Lymphocytes % (Manual) Reactive Lymphs % Monocytes % (Manual) Platelet Estimate RBC Morphology Anisocytosis (manual) Puncture Site pCO2 pO2 HCO3 ABG pH ABG Total CO2 ABG O2 Saturation ABG Base Excess ABG Hemoglobin ABG Carboxyhemoglobin POC ABG HHb (Measured) ABG Methemoglobin Fish Test A-a O2 Difference Respiratory Index Hgb O2 Saturation FiO2 Crit Value Called To Crit Value Called By Crit Value Read Back Blood Gas Notified Time Sodium Potassium Chloride Carbon Dioxide Anion Gap BUN Creatinine Est GFR ( Amer) Est GFR (Non-Af Amer) POC Glucose (mg/dL) 132 H Random Glucose Calcium Phosphorus Magnesium Total Bilirubin AST ALT Alkaline Phosphatase Total Protein Albumin Globulin Albumin/Globulin Ratio Fingerstick Blood Sugar Results: 132 Review of Systems - Review of Systems Systems not reviewed;Unavailable: Intubated Review of Systems: could not obtain at this time due to intubated and sedated state Assessment/Plan - Assessment and Plan (Free Text) Assessment: 86-year-old female with PMHx significant for COPD hypertension and CAD, initially presented to ICU with acute respiratory failure and hypercarbic encephalopathy. Patient had episode of significant epistaxis over the weekend for which nasal packing was placed. Patient desaturated today in mild distress prompting re-intubation today. Plan: Neuro: Re-intubated and sedated 10/08/16 Patient somnolent at times Did not comply with ROS 09/23/16 CT Head- Generalized atrophy. Nonspecific white matter changes. Cardiovascular: Better rate control noted HTN Diltiazem 5 mg IV Q6H Plavix 75mg PO daily- held due to bleed Lisinopril 20mg NG BID daily Aspirin 81mg po daily- held due to bleed Rouvastatin 10mg po HS Pulmonary: Patient extubated 8:50AM 10/02/16; however re-intubated 10/08/16 due to destaruation into the 80s. Mild distress noted by respiratory team. Solumedrol tapered down- 20mg IV daily Budesonide 0.5mg INH Q12 Imagin10/08/16 CXR- ET tube 4 cm above vicente; moderate left pleural effusion; underlying atelectasis/pneumonia cannot be excluded 10/06/[address]/Pelvis- 6 mm right middle lobe pulmonary nodule- moderate bilateral pleural effusions and associated compressive consolidations 10/02/16 CXR- Possible small left pleural effusion. No infiltrate. 10/01/16 CXR- No infiltrate. Lines and tubes unchanged. 09/30/16 CXR- No active pulmonary disease. Stable position of tubes. 09/29/16 CXR- Interval improvement in the right lung since the previous exam. 09/28/16 CXR- Interval worsening of heterogeneous opacities at the right lower lung since the previous exam. Appropriate position of the ETT and NG tube. AB10/08/16 pH 7.34, pCO2 60, PO2 159, HCO3 28.9 ( improved) 10/07/16 pH 7.3, CO2 74, O2 40, HCO2 30.4 GI: No BMs in 5-6 days per nursing; BM noted by GI on 10/06- Dulcolax [place] given Pepcid 20 mg IV daily GI may consider Amitiza if necc. F/U Abdominal distension- CT Abdomen 10/06/16- Cholelithiasis, anasarca, unremarkable unenhanced appearance of liver, pancreas and spleen. Stomach nondistended and bowel loops WNL w/o evidence of intestinal obstruction- moderate diffuse distension of the colon GI Consult- Dr. Ayala- Considerations for CT abdomen- See aforementioned; on Flagyl 500 mg PO TID; F/U C diff studies Gen Surg Consult- Dr. Jimenez- -no surgical intervention at this time- sign off Lactulose 20mg po HS DC- Ammonia stable 10/01/16 Abd XR- Mild dilatation of the transverse and ascending colon. No evidence of small bowel obstruction. No masses or abnormal intra-abdominal calcifications. Nasogastric tube tip in left upper quadrant of abdomen. No definite free intraperitoneal air. 09/29/16 CT ABd/Pelv- 1. Cholelithiasis without CT evidence for acute cholecystitis. 2. Colonic distention with air-fluid levels which may represent ileus or pseudo obstruction, no definite evidence of mass or colitis. 3. Mild sigmoid diverticulosis without CT evidence for acute diverticulitis. 4. Several large simple cysts in the left kidney. Nonvisualization of the right kidney. 5. Mild ascites and moderate bilateral pleural effusions. 09/29/16 Abd XR- Moderately dilated bowel loops at the mid to upper abdomen right more than left. If clinically warranted further assessment by CT is suggested. Purred diet with thin liquids s/p passing of swallow eval Hematology: Dr. Lowry to remove nasal packing likely Wed - Monitor WBC 25.2- mildly decreased from day prior Hgb/Hct stable : 11.9/38 Endocrine: Maintain euglycemia HbA1c- 5.9 Insulin Sliding Scale protocol Renal: Initial KAYLEN improving. BUN/Cr: 34/1.1 Hypokalemia- repleted Hypernatremia- resolved ID: U/A negative Blood Cx negative DC Abx 10/03/16 : Perez in place MSK: None Palliative Care: Palliative Care Consult Placed- F/U Prophylaxis- Pepcid 20mg po daily Lovenox 40mg sc HELD due to epistaxis event, SCDs in place Ensure Enlive - three times a day <Kendrick Yo - Last Filed: 10/08/16 17:12> CCU Objective - Vital Signs / Intake & Output Vital Signs (Last 4 hours): Vital Signs Temp Pulse Resp BP Pulse Ox 10/08/16 16:00 98.3 F 10/08/16 15:00 91 H 16 115/62 100 10/08/16 14:00 88 16 126/67 100 Intake and Output (Last 8hrs): Intake & Output 10/08/16 10/08/16 10/08/16 06:59 14:59 22:59 Intake Total 750 791.6 87.5 Output Total 320 260 30 Balance 430 531.6 57.5 Weight 154 lb 2 oz Intake: Intake, IV Amount 750 791.6 87.5 Right Forearm 750 700 75 Right Distal Port Forearm 16.6 12.5 right arm 75 Output: Urine 320 260 30 Urethral (Perez) 320 260 30 - Medications Active Medications: Active Medications Generic Name Dose Route Start Last Admin Trade Name Freq PRN Reason Stop Dose Admin Aspirin 81 mg 09/24/16 18:30 10/05/16 09:14 Aspirin Chewable PO 81 mg DAILY KAILA Administration Budesonide 0.5 mg 10/02/16 20:00 10/08/16 07:46 Pulmicort Respules INH 0.5 mg RQ12 KAILA Administration Clopidogrel Bisulfate 75 mg 09/26/16 10:00 10/05/16 09:14 Plavix PO 75 mg DAILY KAILA Administration Diltiazem HCl 5 mg 10/07/16 21:00 10/08/16 09:27 Cardizem IVP 5 mg Q6H KAILA Administration Enoxaparin Sodium 40 mg 09/26/16 13:00 10/05/16 09:14 Lovenox SC 40 mg DAILY KAILA Administration Famotidine 20 mg 10/08/16 10:00 10/08/16 09:27 Pepcid IVP 20 mg DAILY KAILA Administration Doxycycline Hyclate 100 mg/ 100 mls @ 100 mls/hr 10/07/16 05:00 10/08/16 05:22 Sodium Chloride IVPB 100 mls/hr Q12H KAILA Administration Lactated Ringer's 1,000 mls @ 75 mls/hr 10/07/16 21:00 10/08/16 14:37 Lactated Ringer's IV 75 mls/hr .[id number] KAILA Administration Metronidazole 100 mls @ 100 mls/hr 10/07/16 22:00 10/08/16 05:23 Flagyl IVPB 100 mls/hr Q8 KAILA Administration Propofol 100 mls @ 2.097 mls/hr 10/08/16 12:30 10/08/16 12:31 Diprivan IV 4.195 mls/hr .Q24H PRN Administration TITRATE PER MD ORDER Protocol 5 MCG/KG/MIN Insulin Human Regular 0 unit 10/08/16 17:00 Novolin R SC Q6H [facility] Protocol Lisinopril 20 mg 10/05/16 18:00 10/08/16 11:18 Zestril NG Not Given BID [facility] Methylprednisolone 20 mg 10/07/16 10:00 10/08/16 11:12 Solu-Medrol IV 20 mg DAILY KAILA Administration Polyethylene Glycol 17 gm 10/06/16 10:00 10/08/16 09:28 Miralax PO Not Given DAILY KAILA Rosuvastatin Calcium 10 mg 09/23/16 22:00 10/07/16 21:14 Crestor PO Not Given HS [facility] - Patient Studies Lab Studies: Lab Studies 10/08/16 10/08/16 10/08/16 Range/Units 11:38 11:27 07:11 WBC (4.8-10.8) K/uL RBC (3.80-5.20) Mil/uL Hgb (11.0-16.0) g/dL Hct (34.0-47.0) % MCV (81.0-99.0) fL MCH (27.0-31.0) pg MCHC (33.0-37.0) g/dL RDW (11.5-14.5) % Plt Count (130-400) K/uL MPV (7.2-11.7) fL Neut % (Auto) (50.0-75.0) % Lymph % (Auto) (20.0-40.0) % [place] % (Auto) (0.0-10.0) % Eos % (Auto) (0.0-4.0) % Baso % (Auto) (0.0-2.0) % Neut # (1.8-7.0) K/uL Lymph # (1.0-4.3) K/uL [place] # (0.0-0.8) K/uL Eos # (0.0-0.7) K/uL Baso # (0.0-0.2) K/uL Neutrophils % (Manual) (50-75) % Lymphocytes % (Manual) (20-40) % Monocytes % (Manual) (0-10) % Platelet Estimate (NORMAL) Anisocytosis (manual) Puncture Site Rr pCO2 60 H (35-45) mm/Hg pO2 159 H (80-100) mm/Hg HCO3 28.9 H (21-28) mmol/L ABG pH 7.34 L (7.35-7.45) ABG Total CO2 34.2 H (22-28) mmol/L ABG O2 Saturation 100.2 H (95-98) % ABG Base Excess 5.1 H (-2.0-3.0) mmol/L ABG Hemoglobin 11.7 (11.7-17.4) g/dL ABG Carboxyhemoglobin 2.1 H (0.5-1.5) % POC ABG HHb (Measured) -0.2 L (0.0-5.0) % ABG Methemoglobin 1.3 (0.0-3.0) % Fish Test Pos A-a O2 Difference 479.0 mm/Hg Respiratory Index 3.0 Hgb O2 Saturation 96.9 (95.0-98.0) % Mechanical Rate 16 FiO2 100.0 % Tidal Volume 450 PEEP 5 Sodium (132-148) mmol/L Potassium (3.6-5.2) mmol/L Chloride (98-107) mmol/L Carbon Dioxide (22-30) mmol/L Anion Gap (10-20) BUN (7-17) mg/dL Creatinine (0.7-1.2) MG/DL Est GFR ( Amer) Est GFR (Non-Af Amer) POC Glucose (mg/dL) 176 H 132 H (65-110) mg/dL Random Glucose (65-105) mg/dL Calcium (8.6-10.4) mg/dl Phosphorus (2.5-4.5) mg/dL Magnesium (1.6-2.3) mg/dL Total Bilirubin (0.2-1.3) mg/dL AST (14-36) U/L ALT (9-52) U/L Alkaline Phosphatase (38-126) U/L Total Protein (6.3-8.3) g/dL Albumin (3.5-5.0) g/dL Globulin (2.2-3.9) gm/dL Albumin/Globulin Ratio (1.0-2.1) 10/08/16 10/07/16 Range/Units 06:08 21:06 WBC 25.2 H (4.8-10.8) K/uL RBC 4.12 (3.80-5.20) Mil/uL Hgb 11.9 (11.0-16.0) g/dL Hct 38.0 (34.0-47.0) % MCV 92.2 (81.0-99.0) fL MCH 28.9 (27.0-31.0) pg MCHC 31.4 L (33.0-37.0) g/dL RDW 14.8 H (11.5-14.5) % Plt Count 190 (130-400) K/uL MPV 9.8 (7.2-11.7) fL Neut % (Auto) 93.6 H (50.0-75.0) % Lymph % (Auto) 2.6 L (20.0-40.0) % [place] % (Auto) 3.7 (0.0-10.0) % Eos % (Auto) 0.0 (0.0-4.0) % Baso % (Auto) 0.1 (0.0-2.0) % Neut # 23.6 H (1.8-7.0) K/uL Lymph # 0.6 L (1.0-4.3) K/uL [place] # 0.9 H (0.0-0.8) K/uL Eos # 0.0 (0.0-0.7) K/uL Baso # 0.0 (0.0-0.2) K/uL Neutrophils % (Manual) 92 H (50-75) % Lymphocytes % (Manual) 6 L (20-40) % Monocytes % (Manual) 2 (0-10) % Platelet Estimate Normal (NORMAL) Anisocytosis (manual) Slight Puncture Site pCO2 (35-45) mm/Hg pO2 (80-100) mm/Hg HCO3 (21-28) mmol/L ABG pH (7.35-7.45) ABG Total CO2 (22-28) mmol/L ABG O2 Saturation (95-98) % ABG Base Excess (-2.0-3.0) mmol/L ABG Hemoglobin (11.7-17.4) g/dL ABG Carboxyhemoglobin (0.5-1.5) % POC ABG HHb (Measured) (0.0-5.0) % ABG Methemoglobin (0.0-3.0) % Fish Test A-a O2 Difference mm/Hg Respiratory Index Hgb O2 Saturation (95.0-98.0) % Mechanical Rate FiO2 % [place]idal Volume PEEP Sodium 146 (132-148) mmol/L Potassium 3.5 L (3.6-5.2) mmol/L Chloride 102 (98-107) mmol/L Carbon Dioxide 33 H (22-30) mmol/L Anion Gap 15 (10-20) BUN 34 H (7-17) mg/dL Creatinine 1.1 (0.7-1.2) MG/DL Est GFR ( Amer) 57 Est GFR (Non-Af Amer) 47 POC Glucose (mg/dL) 175 H (65-110) mg/dL Random Glucose 125 H (65-105) mg/dL Calcium 8.1 L (8.6-10.4) mg/dl Phosphorus 3.2 (2.5-4.5) mg/dL Magnesium 1.8 (1.6-2.3) mg/dL Total Bilirubin 0.4 (0.2-1.3) mg/dL AST 40 H (14-36) U/L ALT 56 H (9-52) U/L Alkaline Phosphatase 56 (38-126) U/L Total Protein 5.1 L (6.3-8.3) g/dL Albumin 2.8 L (3.5-5.0) g/dL Globulin 2.4 (2.2-3.9) gm/dL Albumin/Globulin Ratio 1.2 (1.0-2.1) Laboratory Results - last 24 hr 10/07/16 10/08/16 10/08/16 21:06 06:08 07:11 WBC 25.2 H RBC 4.12 Hgb 11.9 Hct 38.0 MCV 92.2 MCH 28.9 MCHC 31.4 L RDW 14.8 H Plt Count 190 MPV 9.8 Neut % (Auto) 93.6 H Lymph % (Auto) 2.6 L [place] % (Auto) 3.7 Eos % (Auto) 0.0 Baso % (Auto) 0.1 Neut # 23.6 H Lymph # 0.6 L [place] # 0.9 H Eos # 0.0 Baso # 0.0 Neutrophils % (Manual) 92 H Lymphocytes % (Manual) 6 L Monocytes % (Manual) 2 Platelet Estimate Normal Anisocytosis (manual) Slight Puncture Site pCO2 pO2 HCO3 ABG pH ABG Total CO2 ABG O2 Saturation ABG Base Excess ABG Hemoglobin ABG Carboxyhemoglobin POC ABG HHb (Measured) ABG Methemoglobin Fish Test A-a O2 Difference Respiratory Index Hgb O2 Saturation Mechanical Rate FiO2 Tidal Volume PEEP Sodium 146 Potassium 3.5 L Chloride 102 Carbon Dioxide 33 H Anion Gap 15 BUN 34 H Creatinine 1.1 Est GFR ( Amer) 57 Est GFR (Non-Af Amer) 47 POC Glucose (mg/dL) 175 H 132 H Random Glucose 125 H Calcium 8.1 L Phosphorus 3.2 Magnesium 1.8 Total Bilirubin 0.4 AST 40 H ALT 56 H Alkaline Phosphatase 56 Total Protein 5.1 L Albumin 2.8 L Globulin 2.4 Albumin/Globulin Ratio 1.2 10/08/16 10/08/16 11:27 11:38 WBC RBC Hgb Hct MCV MCH MCHC RDW Plt Count MPV Neut % (Auto) Lymph % (Auto) [place] % (Auto) Eos % (Auto) Baso % (Auto) Neut # Lymph # [place] # Eos # Baso # Neutrophils % (Manual) Lymphocytes % (Manual) Monocytes % (Manual) Platelet Estimate Anisocytosis (manual) Puncture Site Rr pCO2 60 H pO2 159 H HCO3 28.9 H ABG pH 7.34 L ABG Total CO2 34.2 H ABG O2 Saturation 100.2 H ABG Base Excess 5.1 H ABG Hemoglobin 11.7 ABG Carboxyhemoglobin 2.1 H POC ABG HHb (Measured) -0.2 L ABG Methemoglobin 1.3 Fish Test Pos A-a O2 Difference 479.0 Respiratory Index 3.0 Hgb O2 Saturation 96.9 Mechanical Rate 16 FiO2 100.0 Tidal Volume 450 PEEP 5 Sodium Potassium Chloride Carbon Dioxide Anion Gap BUN Creatinine Est GFR ( Amer) Est GFR (Non-Af Amer) POC Glucose (mg/dL) 176 H Random Glucose Calcium Phosphorus Magnesium Total Bilirubin AST ALT Alkaline Phosphatase Total Protein Albumin Globulin Albumin/Globulin Ratio Assessment/Plan (1) COPD (chronic obstructive pulmonary disease) Current Visit: Yes Status: Chronic (2) Acute [place] Current Visit: Yes Status: Acute (3) Leucocytosis Current Visit: Yes Status: Acute Attending/Attestation - Attestation I have personally seen and examined this patient.: Yes I have fully participated in the care of the patient.: Yes I have reviewed all pertinent clinical information: Yes Notes (Text): 10/08/16 17:04 Patient seen and examined in the intensive care unit. Case discussed with house staff in the morning rounds. Patient intubated in the morning for respiratory distress and extreme lethargy. Blood-tinged secretions aspirated from the ET tube Afebrile Continue ventilatory support, follow up ABG and reduce FiO2 as tolerated Triple-lumen catheter inserted and right subclavian vein under aseptic condition and local anesthesia Continue IV steroids, nebulizer treatment and antibiotics
[2016-10-08] MEDS: POLYETHYLENE GLYCOL 3350 17 GM/Dose PACKET PO SCH (09:28)
[2016-10-08] MEDS ORDERED: Potassium Chloride 20 mEq 100 ML IVPB ONE (10:00)
[2016-10-08] MEDS ORDERED: Etomidate 20 mg/10ml Inj IV ONE (10:58)
[2016-10-08] MEDS: Lactated Ringer's 1,000 ML IV SCH ×2 (11:11→14:37)
[2016-10-08] MEDS: MethylPREDNISolone 40 mg Vial IV SCH (11:12)
--- NOTE | 2016-10-08 11:19 | RAD ---
HISTORY: intubated COMPARISON: 10/06/2016 FINDINGS: Endotracheal tube terminates 4 cm proximal to the vicente. The nasogastric tube terminates in the stomach. LUNGS: The right lung is clear. There is a moderate left pleural effusion. PLEURA: No significant right pleural effusion identified, no pneumothorax apparent. CARDIOVASCULAR: Normal. OSSEOUS STRUCTURES: No significant abnormalities. VISUALIZED UPPER ABDOMEN: Normal. OTHER FINDINGS: None. IMPRESSION: 1. Endotracheal tube terminates 4 cm proximal to the vicente. 2. Moderate left pleural effusion. Underlying atelectasis/pneumonia cannot be excluded.
[2016-10-08 11:42] LABS: ABG ALLEN TEST POS; ABG MECHANICAL RATE 16; ARTERIAL BLOOD HGB O2 SAT 96.9 % (95.0-98.0); ATERIAL BLOOD GAS PEEP 5; CARBOXYHEMOGLOBIN 2.1 % (0.5-1.5); DRAW SITE RR; HHB -0.2 % (0.0-5.0); METHEMOGLOBIN 1.3 % (0.0-3.0)
[2016-10-08] MEDS ORDERED: Propofol 10 mg/ml Inj (100 ml) IV SCH (11:45)
--- NOTE | 2016-10-08 11:55 | CP.PCM.PN ---
Subjective - Date & Time of Evaluation Date of Evaluation: 10/07/16 Time of Evaluation: 12:53 - Subjective Subjective: Patient was seen and examined in no acute distress. No acute events overnight. Packing remains in place. Patient appears more lethargic today at times as compared to her normal baseline. Patient was extubated 10/02/16 with O2 saturation in high 90s on venti mask. The patient has passed a swallow evaluation and eating though minimally. Per nursing, patient has not had a BM in 5-6 days. The patient did not comply with ROS due to somnolence. Objective - Vital Signs/Intake and Output Vital Signs (last 24 hours): Temp Pulse Resp BP Pulse Ox 97 F L 92 H 32 H 149/71 94 L 10/08/16 08:00 10/08/16 09:00 10/08/16 08:00 10/08/16 09:00 10/08/16 09:00 Intake and Output: 10/08/16 10/08/16 06:59 18:59 Intake Total 1075 300 Output Total 510 120 Balance 565 180 - Medications Medications: Current Medications Albuterol/Ipratropium (Duoneb 3 Mg/0.5 Mg (3 Ml) Ud) 3 ml INH RQ4 [facility] Last Admin: 10/08/16 11:26 Dose: 3 ml Aspirin (Aspirin Chewable) 81 mg PO DAILY [facility] Last Admin: 10/05/16 09:14 Dose: 81 mg Budesonide (Pulmicort Respules) 0.5 mg INH RQ12 [facility] Last Admin: 10/08/16 07:46 Dose: 0.5 mg Clopidogrel Bisulfate (Plavix) 75 mg PO DAILY [facility] Last Admin: 10/05/16 09:14 Dose: 75 mg Diltiazem HCl (Cardizem) 5 mg IVP Q6H [facility] Last Admin: 10/08/16 09:27 Dose: 5 mg Enoxaparin Sodium (Lovenox) 40 mg SC DAILY [facility] Last Admin: 10/05/16 09:14 Dose: 40 mg Famotidine (Pepcid) 20 mg IVP DAILY [facility] Last Admin: 10/08/16 09:27 Dose: 20 mg Doxycycline Hyclate 100 mg/ (Sodium Chloride) 100 mls @ 100 mls/hr IVPB Q12H [facility] Last Admin: 10/08/16 05:22 Dose: 100 mls/hr Lactated Ringer's (Lactated Ringer's) 1,000 mls @ 75 mls/hr IV .[id number] [facility] Last Admin: 10/08/16 11:11 Dose: Not Given Metronidazole (Flagyl) 100 mls @ 100 mls/hr IVPB Q8 [facility] Last Admin: 10/08/16 05:23 Dose: 100 mls/hr Potassium Chloride (Potassium Chloride 20 Meq/100 Ml) 100 mls @ 50 mls/hr IVPB ONCE ONE Stop: 10/08/16 11:59 Last Admin: 10/08/16 09:26 Dose: 50 mls/hr Insulin Human Regular (Novolin R) 0 unit SC ACHS [facility] PRN Reason: Protocol Last Admin: 10/08/16 11:30 Dose: 2 unit Lisinopril (Zestril) 20 mg NG BID [facility] Last Admin: 10/08/16 11:18 Dose: Not Given Methylprednisolone (Solu-Medrol) 20 mg IV DAILY [facility] Last Admin: 10/08/16 11:12 Dose: 20 mg Polyethylene Glycol (Miralax) 17 gm PO DAILY [facility] Last Admin: 10/08/16 09:28 Dose: Not Given Propofol (Diprivan) 100 mg IV TITR [facility] PRN Reason: Protocol Rosuvastatin Calcium (Crestor) 10 mg PO HS [facility] Last Admin: 10/07/16 21:14 Dose: Not Given - Labs Labs: 10/08/16 06:08 10/08/16 06:08 PT 12.3 SECONDS (9.7-12.2) H 10/06/16 01:34 INR 1.1 10/06/16 01:34 APTT 27 SECONDS (21-34) 10/06/16 01:34 - Constitutional Appears: No Acute Distress - Eye Exam Eye Exam: EOMI, Normal appearance, PERRL Pupil Exam: NORMAL ACCOMODATION, PERRL - Respiratory Exam Respiratory Exam: Decreased Breath Sounds, Clear to Ausculation Bilateral - Cardiovascular Exam Cardiovascular Exam: REGULAR RHYTHM, +S1, +S2. absent: Murmur - GI/Abdominal Exam GI & Abdominal Exam: Soft, Normal Bowel Sounds. absent: Tenderness Assessment and Plan (1) Acute respiratory failure with hypoxia and hypercarbia Status: Resolved (2) Altered mental status Status: Resolved (3) Acute [place] Status: Acute (4) Dehydration Status: Acute
--- NOTE | 2016-10-08 15:26 | CP.CCUPN ---
CCU Subjective - Physician Review Subjective (Free Text): 10/07/16 12:24 Patient was seen and examined in no acute distress. No acute events overnight. Packing remains in place. Patient appears more lethargic today at times as compared to her normal baseline. Patient was extubated 10/02/16 with O2 saturation in high 90s on venti mask. The patient has passed a swallow evaluation and eating though minimally. Per nursing, patient has not had a BM in 5-6 days. The patient did not comply with ROS due to somnolence. CCU Objective - Vital Signs / Intake & Output Vital Signs (Last 4 hours): Vital Signs Temp Pulse Resp BP Pulse Ox 10/08/16 14:00 88 16 126/67 100 10/08/16 13:00 89 16 127/68 100 10/08/16 12:00 97.6 F 95 H 16 123/79 100 Intake and Output (Last 8hrs): Intake & Output 10/08/16 10/08/16 10/08/16 06:59 14:59 22:59 Intake Total 750 625 Output Total 320 205 Balance 430 420 Weight 154 lb 2 oz Intake: Intake, IV Amount 750 625 Right Forearm 750 550 right arm 75 Output: Urine 320 205 Urethral (Perez) 320 205 - Physical Exam Head: Positive for: Atraumatic, Normocephalic, Other (ET Tube in place) Pupils: Positive for: PERRL Extroacular Muscles: Positive for: EOMI Conjunctiva: Positive for: Injected Mouth: Positive for: Dry Nose (Internal): Positive for: Other (Nasal packing in place) Neck: Positive for: Normal Range of Motion Respiratory/Chest: Positive for: Clear to Auscultation, Good Air Exchange, Rales. Negative for: Respiratory Distress, Accessory Muscle Use Cardiovascular: Positive for: Normal S1, S2, Irregular Rhythm. Negative for: Regular Rate and Rhythm, Murmurs Abdomen: Positive for: Distention, Normal Bowel Sounds. Negative for: Peritoneal Signs, Rebound Genitourinary/Pelvic Exam: Positive for: Other (perez in place) Upper Extremity: Positive for: Normal Inspection. Negative for: Cyanosis, Edema Lower Extremity: Positive for: Normal Inspection. Negative for: Edema, CALF TENDERNESS Neurological: Positive for: CN II-XII Intact Skin: Positive for: Warm, Dry Psychiatric: Positive for: Alert - Medications Active Medications: Active Medications Generic Name Dose Route Start Last Admin Trade Name Freq PRN Reason Stop Dose Admin Aspirin 81 mg 09/24/16 18:30 10/05/16 09:14 Aspirin Chewable PO 81 mg DAILY [facility] Administration Budesonide 0.5 mg 10/02/16 20:00 10/08/16 07:46 Pulmicort Respules INH 0.5 mg RQ12 [facility] Administration Clopidogrel Bisulfate 75 mg 09/26/16 10:00 10/05/16 09:14 Plavix PO 75 mg DAILY [facility] Administration Diltiazem HCl 5 mg 10/07/16 21:00 10/08/16 09:27 Cardizem IVP 5 mg Q6H [facility] Administration Enoxaparin Sodium 40 mg 09/26/16 13:00 10/05/16 09:14 Lovenox SC 40 mg DAILY [facility] Administration Famotidine 20 mg 10/08/16 10:00 10/08/16 09:27 Pepcid IVP 20 mg DAILY [facility] Administration Doxycycline Hyclate 100 mg/ 100 mls @ 100 mls/hr 10/07/16 05:00 10/08/16 05:22 Sodium Chloride IVPB 100 mls/hr Q12H [facility] Administration Lactated Ringer's 1,000 mls @ 75 mls/hr 10/07/16 21:00 10/08/16 14:37 Lactated Ringer's IV 75 mls/hr .[id number] [facility] Administration Metronidazole 100 mls @ 100 mls/hr 10/07/16 22:00 10/08/16 05:23 Flagyl IVPB 100 mls/hr Q8 [facility] Administration Propofol 100 mls @ 2.097 mls/hr 10/08/16 12:30 10/08/16 12:31 Diprivan IV 4.195 mls/hr .Q24H PRN Administration TITRATE PER MD ORDER Protocol 5 MCG/KG/MIN Insulin Human Regular 0 unit 10/04/16 17:00 10/08/16 11:30 Novolin R SC 2 unit ACHS [facility] Administration Protocol Lisinopril 20 mg 10/05/16 18:00 10/08/16 11:18 Zestril NG Not Given BID [facility] Methylprednisolone 20 mg 10/07/16 10:00 10/08/16 11:12 Solu-Medrol IV 20 mg DAILY [facility] Administration Polyethylene Glycol 17 gm 10/06/16 10:00 10/08/16 09:28 Miralax PO Not Given DAILY [facility] Rosuvastatin Calcium 10 mg 09/23/16 22:00 10/07/16 21:14 Crestor PO Not Given HS [facility]AILA - Patient Studies Lab Studies: Lab Studies 10/08/16 10/08/16 10/08/16 Range/Units 11:38 11:27 07:11 WBC (4.8-10.8) K/uL RBC (3.80-5.20) Mil/uL Hgb (11.0-16.0) g/dL Hct (34.0-47.0) % MCV (81.0-99.0) fL MCH (27.0-31.0) pg MCHC (33.0-37.0) g/dL RDW (11.5-14.5) % Plt Count (130-400) K/uL MPV (7.2-11.7) fL Neut % (Auto) (50.0-75.0) % Lymph % (Auto) (20.0-40.0) % [place] % (Auto) (0.0-10.0) % Eos % (Auto) (0.0-4.0) % Baso % (Auto) (0.0-2.0) % Neut # (1.8-7.0) K/uL Lymph # (1.0-4.3) K/uL [place] # (0.0-0.8) K/uL Eos # (0.0-0.7) K/uL Baso # (0.0-0.2) K/uL Neutrophils % (Manual) (50-75) % Lymphocytes % (Manual) (20-40) % Monocytes % (Manual) (0-10) % Platelet Estimate (NORMAL) Anisocytosis (manual) Puncture Site Rr pCO2 60 H (35-45) mm/Hg pO2 159 H (80-100) mm/Hg HCO3 28.9 H (21-28) mmol/L ABG pH 7.34 L (7.35-7.45) ABG Total CO2 34.2 H (22-28) mmol/L ABG O2 Saturation 100.2 H (95-98) % ABG Base Excess 5.1 H (-2.0-3.0) mmol/L ABG Hemoglobin 11.7 (11.7-17.4) g/dL ABG Carboxyhemoglobin 2.1 H (0.5-1.5) % POC ABG HHb (Measured) -0.2 L (0.0-5.0) % ABG Methemoglobin 1.3 (0.0-3.0) % Fish Test Pos A-a O2 Difference 479.0 mm/Hg Respiratory Index 3.0 Hgb O2 Saturation 96.9 (95.0-98.0) % Mechanical Rate 16 FiO2 100.0 % Tidal Volume 450 PEEP 5 Sodium (132-148) mmol/L Potassium (3.6-5.2) mmol/L Chloride (98-107) mmol/L Carbon Dioxide (22-30) mmol/L Anion Gap (10-20) BUN (7-17) mg/dL Creatinine (0.7-1.2) MG/DL Est GFR ( Amer) Est GFR (Non-Af Amer) POC Glucose (mg/dL) 176 H 132 H (65-110) mg/dL Random Glucose (65-105) mg/dL Calcium (8.6-10.4) mg/dl Phosphorus (2.5-4.5) mg/dL Magnesium (1.6-2.3) mg/dL Total Bilirubin (0.2-1.3) mg/dL AST (14-36) U/L ALT (9-52) U/L Alkaline Phosphatase (38-126) U/L Total Protein (6.3-8.3) g/dL Albumin (3.5-5.0) g/dL Globulin (2.2-3.9) gm/dL Albumin/Globulin Ratio (1.0-2.1) 10/08/16 10/07/16 10/07/16 Range/Units 06:08 21:06 16:07 WBC 25.2 H (4.8-10.8) K/uL RBC 4.12 (3.80-5.20) Mil/uL Hgb 11.9 (11.0-16.0) g/dL Hct 38.0 (34.0-47.0) % MCV 92.2 (81.0-99.0) fL MCH 28.9 (27.0-31.0) pg MCHC 31.4 L (33.0-37.0) g/dL RDW 14.8 H (11.5-14.5) % Plt Count 190 (130-400) K/uL MPV 9.8 (7.2-11.7) fL Neut % (Auto) 93.6 H (50.0-75.0) % Lymph % (Auto) 2.6 L (20.0-40.0) % [place] % (Auto) 3.7 (0.0-10.0) % Eos % (Auto) 0.0 (0.0-4.0) % Baso % (Auto) 0.1 (0.0-2.0) % Neut # 23.6 H (1.8-7.0) K/uL Lymph # 0.6 L (1.0-4.3) K/uL [place] # 0.9 H (0.0-0.8) K/uL Eos # 0.0 (0.0-0.7) K/uL Baso # 0.0 (0.0-0.2) K/uL Neutrophils % (Manual) 92 H (50-75) % Lymphocytes % (Manual) 6 L (20-40) % Monocytes % (Manual) 2 (0-10) % Platelet Estimate Normal (NORMAL) Anisocytosis (manual) Slight Puncture Site pCO2 (35-45) mm/Hg pO2 (80-100) mm/Hg HCO3 (21-28) mmol/L ABG pH (7.35-7.45) ABG Total CO2 (22-28) mmol/L ABG O2 Saturation (95-98) % ABG Base Excess (-2.0-3.0) mmol/L ABG Hemoglobin (11.7-17.4) g/dL ABG Carboxyhemoglobin (0.5-1.5) % POC ABG HHb (Measured) (0.0-5.0) % ABG Methemoglobin (0.0-3.0) % Fish Test A-a O2 Difference mm/Hg Respiratory Index Hgb O2 Saturation (95.0-98.0) % Mechanical Rate FiO2 % Tidal Volume PEEP Sodium 146 (132-148) mmol/L Potassium 3.5 L (3.6-5.2) mmol/L Chloride 102 (98-107) mmol/L Carbon Dioxide 33 H (22-30) mmol/L Anion Gap 15 (10-20) BUN 34 H (7-17) mg/dL Creatinine 1.1 (0.7-1.2) MG/DL Est GFR ( Amer) 57 Est GFR (Non-Af Amer) 47 POC Glucose (mg/dL) 175 H 162 H (65-110) mg/dL Random Glucose 125 H (65-105) mg/dL Calcium 8.1 L (8.6-10.4) mg/dl Phosphorus 3.2 (2.5-4.5) mg/dL Magnesium 1.8 (1.6-2.3) mg/dL Total Bilirubin 0.4 (0.2-1.3) mg/dL AST 40 H (14-36) U/L ALT 56 H (9-52) U/L Alkaline Phosphatase 56 (38-126) U/L Total Protein 5.1 L (6.3-8.3) g/dL Albumin 2.8 L (3.5-5.0) g/dL Globulin 2.4 (2.2-3.9) gm/dL Albumin/Globulin Ratio 1.2 (1.0-2.1) Laboratory Results - last 24 hr 10/07/16 10/07/16 10/08/16 16:07 21:06 06:08 WBC 25.2 H RBC 4.12 Hgb 11.9 Hct 38.0 MCV 92.2 MCH 28.9 MCHC 31.4 L RDW 14.8 H Plt Count 190 MPV 9.8 Neut % (Auto) 93.6 H Lymph % (Auto) 2.6 L [place] % (Auto) 3.7 Eos % (Auto) 0.0 Baso % (Auto) 0.1 Neut # 23.6 H Lymph # 0.6 L [place] # 0.9 H Eos # 0.0 Baso # 0.0 Neutrophils % (Manual) 92 H Lymphocytes % (Manual) 6 L Monocytes % (Manual) 2 Platelet Estimate Normal Anisocytosis (manual) Slight Puncture Site pCO2 pO2 HCO3 ABG pH ABG Total CO2 ABG O2 Saturation ABG Base Excess ABG Hemoglobin ABG Carboxyhemoglobin POC ABG HHb (Measured) ABG Methemoglobin Fish Test A-a O2 Difference Respiratory Index Hgb O2 Saturation Mechanical Rate FiO2 Tidal Volume PEEP Sodium 146 Potassium 3.5 L Chloride 102 Carbon Dioxide 33 H Anion Gap 15 BUN 34 H Creatinine 1.1 Est GFR ( Amer) 57 Est GFR (Non-Af Amer) 47 POC Glucose (mg/dL) 162 H 175 H Random Glucose 125 H Calcium 8.1 L Phosphorus 3.2 Magnesium 1.8 Total Bilirubin 0.4 AST 40 H ALT 56 H Alkaline Phosphatase 56 Total Protein 5.1 L Albumin 2.8 L Globulin 2.4 Albumin/Globulin Ratio 1.2 10/08/16 10/08/16 10/08/16 07:11 11:27 11:38 WBC RBC Hgb Hct MCV MCH MCHC RDW Plt Count MPV Neut % (Auto) Lymph % (Auto) [place] % (Auto) Eos % (Auto) Baso % (Auto) Neut # Lymph # [place] # Eos # Baso # Neutrophils % (Manual) Lymphocytes % (Manual) Monocytes % (Manual) Platelet Estimate Anisocytosis (manual) Puncture Site Rr pCO2 60 H pO2 159 H HCO3 28.9 H ABG pH 7.34 L ABG Total CO2 34.2 H ABG O2 Saturation 100.2 H ABG Base Excess 5.1 H ABG Hemoglobin 11.7 ABG Carboxyhemoglobin 2.1 H POC ABG HHb (Measured) -0.2 L ABG Methemoglobin 1.3 Fish Test Pos A-a O2 Difference 479.0 Respiratory Index 3.0 Hgb O2 Saturation 96.9 Mechanical Rate 16 FiO2 100.0 Tidal Volume 450 PEEP 5 Sodium Potassium Chloride Carbon Dioxide Anion Gap BUN Creatinine Est GFR ( Amer) Est GFR (Non-Af Amer) POC Glucose (mg/dL) 132 H 176 H Random Glucose Calcium Phosphorus Magnesium Total Bilirubin AST ALT Alkaline Phosphatase Total Protein Albumin Globulin Albumin/Globulin Ratio Fingerstick Blood Sugar Results: 132
[2016-10-08] MEDS ORDERED: (Novolin R) Insulin Human Regular 100 units/ml vial SC SCH (17:00)
--- NOTE | 2016-10-08 17:03 | RAD ---
HISTORY: TLC placement COMPARISON: Chest xray performed 10/08/2016 TECHNIQUE: Chest, one view. FINDINGS: Endotracheal tube terminates approximately 3.6 cm above the vicente. Right sided central venous congestion terminates at the expected location of the SVC. LUNGS: Left basilar atelectasis/infiltrate. Please note that chest x-ray has limited sensitivity for the detection of pulmonary masses. PLEURA: Small left pleural effusion. No definite pneumothorax . CARDIOVASCULAR: Heart size appears top normal. Atherosclerotic calcifications. OSSEOUS STRUCTURES: Osseous demineralization. Degenerative changes. VISUALIZED UPPER ABDOMEN: Unremarkable. OTHER FINDINGS: None. IMPRESSION: Support lines and tubes as above. Small left pleural effusion. Left basilar atelectasis/infiltrate.
--- NOTE | 2016-10-08 23:44 | CP.PCM.PN ---
Subjective - Date & Time of Evaluation Date of Evaluation: 10/08/16 Time of Evaluation: 12:56 - Subjective Subjective: Patient was seen and examined in no acute distress. No acute events overnight. Packing remains in place. Patient appears more lethargic today at times as compared to her normal baseline. Patient was extubated 10/02/16 with O2 saturation in high 90s on venti mask. The patient has passed a swallow evaluation and eating though minimally. Per nursing, patient has not had a BM in 5-6 days. The patient did not comply with ROS due to somnolence. Objective - Vital Signs/Intake and Output Vital Signs (last 24 hours): Temp Pulse Resp BP Pulse Ox 97.9 F 81 16 129/64 100 10/08/16 20:00 10/08/16 22:00 10/08/16 22:00 10/08/16 22:00 10/08/16 22:00 Intake and Output: 10/08/16 10/09/16 18:59 06:59 Intake Total 1266.6 335.5 Output Total 400 70 Balance 866.6 265.5 - Medications Medications: Current Medications Albuterol/Ipratropium (Duoneb 3 Mg/0.5 Mg (3 Ml) Ud) 3 ml INH RQ4 [facility] Last Admin: 10/08/16 20:08 Dose: 3 ml Aspirin (Aspirin Chewable) 81 mg PO DAILY [facility] Last Admin: 10/05/16 09:14 Dose: 81 mg Budesonide (Pulmicort Respules) 0.5 mg INH RQ12 [facility] Last Admin: 10/08/16 07:46 Dose: 0.5 mg Clopidogrel Bisulfate (Plavix) 75 mg PO DAILY [facility] Last Admin: 10/05/16 09:14 Dose: 75 mg Diltiazem HCl (Cardizem) 5 mg IVP Q6H [facility] Last Admin: 10/08/16 21:11 Dose: 5 mg Enoxaparin Sodium (Lovenox) 40 mg SC DAILY [facility] Last Admin: 10/05/16 09:14 Dose: 40 mg Famotidine (Pepcid) 20 mg IVP DAILY [facility] Last Admin: 10/08/16 09:27 Dose: 20 mg Doxycycline Hyclate 100 mg/ (Sodium Chloride) 100 mls @ 100 mls/hr IVPB Q12H [facility] Last Admin: 10/08/16 17:27 Dose: 100 mls/hr Lactated Ringer's (Lactated Ringer's) 1,000 mls @ 75 mls/hr IV .[id number] [facility] Last Admin: 10/08/16 14:37 Dose: 75 mls/hr Metronidazole (Flagyl) 100 mls @ 100 mls/hr IVPB Q8 [facility] Last Admin: 10/08/16 21:48 Dose: 100 mls/hr Propofol (Diprivan) 100 mls @ 2.097 mls/hr IV .Q24H PRN; Protocol; 5 MCG/KG/MIN PRN Reason: TITRATE PER MD ORDER Last Admin: 10/08/16 21:45 Dose: 10.487 mls/hr Insulin Human Regular (Novolin R) 0 unit SC Q6H [facility] PRN Reason: Protocol Lisinopril (Zestril) 20 mg NG BID [facility] Last Admin: 10/08/16 19:33 Dose: 20 mg Methylprednisolone (Solu-Medrol) 20 mg IV DAILY [facility] Last Admin: 10/08/16 11:12 Dose: 20 mg Polyethylene Glycol (Miralax) 17 gm PO DAILY [facility] Last Admin: 10/08/16 09:28 Dose: Not Given Rosuvastatin Calcium (Crestor) 10 mg PO HS [facility] Last Admin: 10/08/16 22:13 Dose: 10 mg - Labs Labs: 10/08/16 06:08 10/08/16 06:08 PT 12.3 SECONDS (9.7-12.2) H 10/06/16 01:34 INR 1.1 10/06/16 01:34 APTT 27 SECONDS (21-34) 10/06/16 01:34 - Constitutional Appears: No Acute Distress, Chronically Ill - Eye Exam Eye Exam: EOMI, Normal appearance, PERRL Pupil Exam: NORMAL ACCOMODATION, PERRL - Respiratory Exam Respiratory Exam: Clear to Ausculation Bilateral, NORMAL BREATHING PATTERN - Cardiovascular Exam Cardiovascular Exam: REGULAR RHYTHM, +S1, +S2. absent: Murmur Assessment and Plan (1) Acute respiratory failure with hypoxia and hypercarbia Status: Resolved (2) Altered mental status Status: Resolved (3) Acute [place] Status: Acute (4) Dehydration Status: Acute
[2016-10-09] MEDS: Albuterol-Ipratrop 3 mg / 0.5 (3 ml) UD INH SCH ×6 (00:02→19:26)
[2016-10-09] MEDS: (Novolin R) Insulin Human Regular 100 units/ml vial SC SCH ×4 (00:24→18:18)
[2016-10-09] MEDS: Lactated Ringer's 1,000 ML IV SCH ×2 (04:56→16:42)
[2016-10-09 05:33] LABS: ABG ALLEN TEST POS; ABG MECHANICAL RATE 16; ARTERIAL BLOOD HGB O2 SAT 97.2 % (95.0-98.0); ATERIAL BLOOD GAS PEEP 5; CARBOXYHEMOGLOBIN 1.7 % (0.5-1.5); DRAW SITE RR; HHB -0.1 % (0.0-5.0); METHEMOGLOBIN 1.2 % (0.0-3.0)
[2016-10-09] MEDS: metroNIDAZOLE IV 500 mg/100 ml 100 ML IVPB SCH ×3 (05:52→21:39)
[2016-10-09 06:14] LABS: BASO # 0.1 K/uL (0.0-0.2); BASO % 0.5 % (0.0-2.0); HEMATOCRIT 29.3 % (34.0-47.0); LYMPH # 0.9 K/uL (1.0-4.3); LYMPH % 4.9 % (20.0-40.0); MEAN CELL VOLUME 92.5 fL (81.0-99.0); MEAN CORPUSCULAR HEMOGLOBIN 30.2 pg (27.0-31.0); MEAN CORPUSCULAR HGB CONC 32.6 g/dL (33.0-37.0); MEAN PLATELET VOLUME 9.9 fL (7.2-11.7); MONO # 0.6 K/uL (0.0-0.8); MONO % 3.5 % (0.0-10.0); PLATELET COUNT 137 K/uL (130-400); RED CELL DISTRIBUTION WIDTH 14.3 % (11.5-14.5); WHITE BLOOD COUNT 17.4 K/uL (4.8-10.8)
[2016-10-09 06:26] LABS: BILIRUBIN,TOTAL 0.5 mg/dL (0.2-1.3); TOTAL PROTEIN 4.2 g/dL (6.3-8.3)
[2016-10-09 06:27] LABS: CALCIUM 7.9 mg/dl (8.6-10.4); MAGNESIUM 1.8 mg/dL (1.6-2.3); PHOSPHOROUS 2.1 mg/dL (2.5-4.5)
[2016-10-09] MEDS: Budesonide 0.5 mg/2 ml Inhal Susp UD INH SCH ×2 (07:24→19:26)
[2016-10-09 07:51] LABS: NEUTROPHIL 86 % (50-75); TOTAL CELLS COUNTED 100
[2016-10-09 07:55] LABS: LARGE PLATELETS PRESENT
[2016-10-09] MEDS ORDERED: Potassium Phosphate 15 MMOLE in Sodium Chloride 0.9% 250 ML IVPB ONE (08:30)
[2016-10-09] MEDS: Potassium Chloride 20 mEq 100 ML IVPB SCH ×2 (08:39→09:49)
--- NOTE | 2016-10-09 08:50 | RAD ---
HISTORY: intubation COMPARISON: 10/08/2016 FINDINGS: LUNGS: Lines and tubes in stable position. Persistent near complete opacification of the left susie thorax with moderate to large left pleural effusion. Diffuse increased interstitial lung markings in the right lung with some relative consolidation in the medial right infrahilar region. . PLEURA: As above. CARDIOVASCULAR: Cardiomegaly. Tortuous aorta. Calcification at the aortic knob. OSSEOUS STRUCTURES: No significant abnormalities. VISUALIZED UPPER ABDOMEN: Normal. OTHER FINDINGS: None. IMPRESSION: Lines and tubes in stable position. Persistent near complete opacification of the left susie thorax with moderate to large left pleural effusion. Diffuse increased interstitial lung markings in the right lung with some relative consolidation in the medial right infrahilar region. .
--- NOTE | 2016-10-09 09:03 | CP.PCM.PN ---
Subjective - Date & Time of Evaluation Date of Evaluation: 10/09/16 Time of Evaluation: 09:01 - Subjective Subjective: CC: follow up ileus Re-intubated 1 BM recorded today Hgb dropped without overt GI bleeding. +epistaxis a few days ago. Objective - Vital Signs/Intake and Output Vital Signs (last 24 hours): Temp Pulse Resp BP Pulse Ox 97.9 F 78 16 138/71 100 10/09/16 04:00 10/09/16 06:00 10/09/16 06:00 10/09/16 06:00 10/09/16 06:00 Intake and Output: 10/09/16 10/09/16 06:59 18:59 Intake Total 1075.5 Output Total 380 Balance 695.5 - Medications Medications: Current Medications Albuterol/Ipratropium (Duoneb 3 Mg/0.5 Mg (3 Ml) Ud) 3 ml INH RQ4 [facility] Last Admin: 10/09/16 07:24 Dose: 3 ml Aspirin (Aspirin Chewable) 81 mg PO DAILY [facility] Last Admin: 10/05/16 09:14 Dose: 81 mg Budesonide (Pulmicort Respules) 0.5 mg INH RQ12 [facility] Last Admin: 10/09/16 07:24 Dose: 0.5 mg Clopidogrel Bisulfate (Plavix) 75 mg PO DAILY [facility] Last Admin: 10/05/16 09:14 Dose: 75 mg Diltiazem HCl (Cardizem) 5 mg IVP Q6H [facility] Last Admin: 10/09/16 03:20 Dose: 5 mg Enoxaparin Sodium (Lovenox) 40 mg SC DAILY [facility] Last Admin: 10/05/16 09:14 Dose: 40 mg Famotidine (Pepcid) 20 mg IVP DAILY [facility] Last Admin: 10/08/16 09:27 Dose: 20 mg Doxycycline Hyclate 100 mg/ (Sodium Chloride) 100 mls @ 100 mls/hr IVPB Q12H [facility] Last Admin: 10/09/16 04:51 Dose: 100 mls/hr Lactated Ringer's (Lactated Ringer's) 1,000 mls @ 75 mls/hr IV .[id number] [facility] Last Admin: 10/09/16 04:56 Dose: 75 mls/hr Metronidazole (Flagyl) 100 mls @ 100 mls/hr IVPB Q8 [facility] Last Admin: 10/09/16 05:52 Dose: 100 mls/hr Propofol (Diprivan) 100 mls @ 2.097 mls/hr IV .Q24H PRN; Protocol; 5 MCG/KG/MIN PRN Reason: TITRATE PER MD ORDER Last Admin: 10/09/16 03:21 Dose: 12.584 mls/hr Potassium Chloride (Potassium Chloride 20 Meq/100 Ml) 100 mls @ 50 mls/hr IVPB Q2H [facility] Stop: 10/09/16 12:14 Last Admin: 10/09/16 08:39 Dose: 50 mls/hr Potassium Phosphate 15 mmole/ (Sodium Chloride) 255 mls @ 42.5 mls/hr IVPB ONCE ONE Stop: 10/09/16 14:29 Insulin Human Regular (Novolin R) 0 unit SC Q6H [facility] PRN Reason: Protocol Last Admin: 10/09/16 05:53 Dose: Not Given Lisinopril (Zestril) 20 mg NG BID [facility] Last Admin: 10/08/16 19:33 Dose: 20 mg Methylprednisolone (Solu-Medrol) 20 mg IV DAILY [facility] Last Admin: 10/08/16 11:12 Dose: 20 mg Polyethylene Glycol (Miralax) 17 gm PO DAILY [facility] Last Admin: 10/08/16 09:28 Dose: Not Given Rosuvastatin Calcium (Crestor) 10 mg PO HS [facility] Last Admin: 10/08/16 22:13 Dose: 10 mg - Labs Labs: 10/09/16 06:08 10/09/16 06:08 PT 12.3 SECONDS (9.7-12.2) H 10/06/16 01:34 INR 1.1 10/06/16 01:34 APTT 27 SECONDS (21-34) 10/06/16 01:34 - Constitutional Appears: Chronically Ill - Head Exam Head Exam: NORMOCEPHALIC - ENT Exam Additional comments: ETT - Respiratory Exam Respiratory Exam: NORMAL BREATHING PATTERN - Cardiovascular Exam Cardiovascular Exam: REGULAR RHYTHM - GI/Abdominal Exam GI & Abdominal Exam: Distended, Soft, Normal Bowel Sounds. absent: Tenderness, Mass Additional comments: Normal bowel sounds - Neurological Exam Neurological Exam: Awake Assessment and Plan (1) Respiratory failure Assessment & Plan: Reintubated Status: Chronic (2) Abdominal distension Assessment & Plan: Stable. Monitor. May restart feeds at 30 ml/hr under observation Status: Acute
[2016-10-09] MEDS: MethylPREDNISolone 40 mg Vial IV SCH (09:50)
[2016-10-09] MEDS: POLYETHYLENE GLYCOL 3350 17 GM/Dose PACKET PO SCH (10:34)
--- NOTE | 2016-10-09 10:50 | CP.PCM.PN ---
Subjective - Date & Time of Evaluation Date of Evaluation: 10/09/16 Time of Evaluation: 10:46 - Subjective Subjective: no bleeding. no epistaxis. Pack removed head: atraumatic face: can not be assessed patient is intubated const: well fed com: can not be assessed patient is intubated external nose and ears: no masses, no lesions nose: deviated septum, no masses, no lesions oc/op: no masses, no lesions, no bloody post nasal drip lips/gums: no masses, no lesions neck: supple lymph: no lad thyroid: no goiter a/p: epistaxis controled deviated septum Objective - Vital Signs/Intake and Output Vital Signs (last 24 hours): Temp Pulse Resp BP Pulse Ox 98.7 F 78 16 145/68 100 10/09/16 08:00 10/09/16 09:17 10/09/16 09:17 10/09/16 09:01 10/09/16 09:17 Intake and Output: 10/09/16 10/09/16 06:59 18:59 Intake Total 1075.5 287.5 Output Total 380 75 Balance 695.5 212.5 - Medications Medications: Current Medications Albuterol/Ipratropium (Duoneb 3 Mg/0.5 Mg (3 Ml) Ud) 3 ml INH RQ4 [facility] Last Admin: 10/09/16 07:24 Dose: 3 ml Aspirin (Aspirin Chewable) 81 mg PO DAILY [facility] Last Admin: 10/05/16 09:14 Dose: 81 mg Budesonide (Pulmicort Respules) 0.5 mg INH RQ12 [facility] Last Admin: 10/09/16 07:24 Dose: 0.5 mg Clopidogrel Bisulfate (Plavix) 75 mg PO DAILY [facility] Last Admin: 10/05/16 09:14 Dose: 75 mg Diltiazem HCl (Cardizem) 5 mg IVP Q6H [facility] Last Admin: 10/09/16 09:48 Dose: 5 mg Enoxaparin Sodium (Lovenox) 40 mg SC DAILY [facility] Last Admin: 10/05/16 09:14 Dose: 40 mg Famotidine (Pepcid) 20 mg IVP DAILY [facility] Last Admin: 10/09/16 09:48 Dose: 20 mg Doxycycline Hyclate 100 mg/ (Sodium Chloride) 100 mls @ 100 mls/hr IVPB Q12H [facility] Last Admin: 10/09/16 04:51 Dose: 100 mls/hr Lactated Ringer's (Lactated Ringer's) 1,000 mls @ 75 mls/hr IV .[id number] [facility] Last Admin: 10/09/16 04:56 Dose: 75 mls/hr Metronidazole (Flagyl) 100 mls @ 100 mls/hr IVPB Q8 [facility] Last Admin: 10/09/16 05:52 Dose: 100 mls/hr Propofol (Diprivan) 100 mls @ 2.097 mls/hr IV .Q24H PRN; Protocol; 5 MCG/KG/MIN PRN Reason: TITRATE PER MD ORDER Last Admin: 10/09/16 03:21 Dose: 12.584 mls/hr Potassium Chloride (Potassium Chloride 20 Meq/100 Ml) 100 mls @ 50 mls/hr IVPB Q2H [facility] Stop: 10/09/16 12:14 Last Admin: 10/09/16 09:49 Dose: 50 mls/hr Potassium Phosphate 15 mmole/ (Sodium Chloride) 255 mls @ 42.5 mls/hr IVPB ONCE ONE Stop: 10/09/16 14:29 Last Admin: 10/09/16 09:49 Dose: 42.5 mls/hr Piperacillin Sod/Tazobactam Sod (Zosyn 2.25 Gm Iv Premix) 50 mls @ 100 mls/hr IVPB Q8H [facility] Insulin Human Regular (Novolin R) 0 unit SC Q6H [facility] PRN Reason: Protocol Last Admin: 10/09/16 05:53 Dose: Not Given Lisinopril (Zestril) 20 mg NG BID [facility] Last Admin: 10/09/16 09:51 Dose: 20 mg Methylprednisolone (Solu-Medrol) 20 mg IV DAILY [facility] Last Admin: 10/09/16 09:50 Dose: 20 mg Polyethylene Glycol (Miralax) 17 gm PO DAILY [facility] Last Admin: 10/09/16 10:34 Dose: 17 gm Rosuvastatin Calcium (Crestor) 10 mg PO HS [facility] Last Admin: 10/08/16 22:13 Dose: 10 mg - Labs Labs: 10/09/16 06:08 10/09/16 06:08 PT 12.3 SECONDS (9.7-12.2) H 10/06/16 01:34 INR 1.1 10/06/16 01:34 APTT 27 SECONDS (21-34) 10/06/16 01:34
--- NOTE | 2016-10-09 10:57 | CT ---
PROCEDURE: CT Chest without contrast HISTORY: pleural effusion COMPARISON: Chest CT from 09/26/2016. CT of abdomen pelvis from 09/29/16 and 10/06/2016. TECHNIQUE: Contiguous axial images were obtained through the chest without intravenous contrast enhancement. Sagittal and coronal reconstructions were performed. Radiation dose (DLP): 732.72 mGy-cm. FINDINGS: LUNGS: 4 millimeter nodule in the peripheral aspect of the right upper lobe (series 3, image 45.). Emphysematous changes in both lung apices. MEDIASTINUM: Minimal calcification of the ascending aorta and aortic arch. No definite aneurysm. The heart size is not significantly enlarged. No significant pericardial effusion. Coronary arterial calcifications. Minimal calcifications involving the mitral annulus and aortic valve. Mild increase in size of the pulmonary artery measuring up to 3 centimeters. This can be seen in the setting of pulmonary arterial hypertension. Minimally prominent lymph nodes in the mediastinum. Hilar lymphadenopathy suboptimally evaluated due to lack of intravenous contrast. PLEURA: There bilateral pleural effusions left greater than right with associated compressive atelectasis and/ pneumonia. BONES: Re- demonstration of compressive deformity of the T8 vertebral body. High density within the anterior aspect of the T12 vertebral body is likely from prior vertebral augmentation procedure. Extensive degenerative changes otherwise noted in the spine. Generalized osteopenia. UPPER ABDOMEN: Visualized portion of the liver appears grossly unremarkable. Mild perihepatic ascites. The gallbladder is moderately distended and contains multiple radiopaque calculus particularly in the region of the gallbladder neck. The gallbladder is not completely imaged. Cystic structures emanating from the left kidney again seen. The spleen appears grossly unremarkable. Diffuse thickening of both adrenal glands. Collapsed configuration of the stomach limits evaluation. Mildly dilated partially visualized colon with oral contrast within them. Suboptimal evaluation of the bowel. OTHER FINDINGS: Multiple calcified and noncalcified thyroid nodules particularly on the left. ET tube noted with the distal tip above the tracheal bifurcation. NG tube noted with the distal tip within the stomach. Vascular catheter noted on the right with the distal tip at the SVC. IMPRESSION: Increasing pleural effusions left greater than right with associated compressive atelectasis and/ pneumonia. Clinical correlation advised. New, 4 millimeter pulmonary nodule in the peripheral aspect of the right upper lobe. This was not seen on the prior CT from 09/29/2016. Follow-up can be obtained in 6 month. Other findings as above.
[2016-10-09] MEDS ORDERED: Piperacill/Tazo 2.25gm in Dex 50 ML IVPB SCH (11:00)
[2016-10-09] MEDS: Piperacill/Tazo 2.25gm in Dex 50 ML IVPB SCH ×2 (11:57→18:20)
--- NOTE | 2016-10-09 14:24 | CP.CCUPN ---
<Katarzyna Hearn - Last Filed: 10/09/16 14:24> CCU Subjective - Physician Review Subjective (Free Text): 10/07/16 12:24 Patient was seen and examined in no acute distress. No acute events overnight. Packing remains in place. Patient appears more lethargic today at times as compared to her normal baseline. Patient was extubated 10/02/16 with O2 saturation in high 90s on venti mask. The patient has passed a swallow evaluation and eating though minimally. Per nursing, patient has not had a BM in 5-6 days. The patient did not comply with ROS due to somnolence. 10/08/16 12:48 Pt seen and examined though increasingly lethargic on evaluation and as per nursing. Patient desaturated into the 80's in mild distress prompting the need for intubation. A ROS could not be obtained due to patient's lethargy 10/09/16 14:24 Pt seen and examined in no acute distress. Patient intubated 10/08/16 with TLC placed with no events per nursing. A ROS could not be obtained due to patient's lethargy. CCU Objective - Vital Signs / Intake & Output Vital Signs (Last 4 hours): Vital Signs Temp Pulse Resp BP Pulse Ox 10/09/16 12:01 79 16 132/56 L 100 10/09/16 12:00 97.7 F 82 16 92 L 10/09/16 11:01 78 16 140/71 100 10/09/16 11:00 78 16 100 10/09/16 10:30 88 15 100 Intake and Output (Last 8hrs): Intake & Output 10/08/16 10/09/16 10/09/16 22:59 06:59 14:59 Intake Total 810.5 740.0 599.0 Output Total 210 310 250 Balance 600.5 430.0 349.0 Weight 157 lb 1 oz Intake: Intake, IV Amount 760.5 740.0 599.0 Right Forearm 225 Right Distal Port Forearm 37.5 50 Right Proximal Port 48.0 90.0 75.0 Subclavian Right Distal Port 350 650 474 Subclavian Right Medial Port 100 Subclavian Other 50 Output: Urine 210 310 250 Urethral (Perez) 210 310 Urine, Voided 250 Other: # Bowel Movements 1 - Physical Exam Head: Positive for: Atraumatic, Normocephalic, Other (ET Tube in place) Pupils: Positive for: PERRL Extroacular Muscles: Positive for: EOMI Conjunctiva: Positive for: Injected Mouth: Positive for: Dry Nose (Internal): Positive for: Other (Nasal packing in place) Neck: Positive for: Normal Range of Motion Respiratory/Chest: Positive for: Clear to Auscultation, Good Air Exchange, Rales. Negative for: Respiratory Distress, Accessory Muscle Use Cardiovascular: Positive for: Normal S1, S2, Irregular Rhythm. Negative for: Regular Rate and Rhythm, Murmurs Abdomen: Positive for: Distention, Normal Bowel Sounds. Negative for: Peritoneal Signs, Rebound Genitourinary/Pelvic Exam: Positive for: Other (perez in place) Upper Extremity: Positive for: Normal Inspection. Negative for: Cyanosis, Edema Lower Extremity: Positive for: Normal Inspection. Negative for: Edema, CALF TENDERNESS Neurological: Positive for: CN II-XII Intact Skin: Positive for: Warm, Dry Psychiatric: Positive for: Alert - Medications Active Medications: Active Medications Generic Name Dose Route Start Last Admin Trade Name Freq PRN Reason Stop Dose Admin Albuterol/Ipratropium 3 ml 10/08/16 20:00 10/09/16 11:36 Duoneb 3 Mg/0.5 Mg (3 Ml) Ud INH 3 ml RQ4 KAILA Administration Aspirin 81 mg 09/24/16 18:30 10/05/16 09:14 Aspirin Chewable PO 81 mg DAILY KAILA Administration Budesonide 0.5 mg 10/02/16 20:00 10/09/16 07:24 Pulmicort Respules INH 0.5 mg RQ12 KAILA Administration Clopidogrel Bisulfate 75 mg 09/26/16 10:00 10/05/16 09:14 Plavix PO 75 mg DAILY KAILA Administration Diltiazem HCl 5 mg 10/07/16 21:00 10/09/16 09:48 Cardizem IVP 5 mg Q6H KAILA Administration Enoxaparin Sodium 40 mg 09/26/16 13:00 10/05/16 09:14 Lovenox SC 40 mg DAILY KAILA Administration Famotidine 20 mg 10/08/16 10:00 10/09/16 09:48 Pepcid IVP 20 mg DAILY KAILA Administration Doxycycline Hyclate 100 mg/ 100 mls @ 100 mls/hr 10/07/16 05:00 10/09/16 04:51 Sodium Chloride IVPB 100 mls/hr Q12H KAILA Administration Lactated Ringer's 1,000 mls @ 75 mls/hr 10/07/16 21:00 10/09/16 04:56 Lactated Ringer's IV 75 mls/hr .[id number] KAILA Administration Metronidazole 100 mls @ 100 mls/hr 10/07/16 22:00 10/09/16 05:52 Flagyl IVPB 100 mls/hr Q8 KAILA Administration Propofol 100 mls @ 2.097 mls/hr 10/08/16 12:30 10/09/16 12:04 Diprivan IV 12.584 mls/hr .Q24H PRN Administration TITRATE PER MD ORDER Protocol 5 MCG/KG/MIN Potassium Phosphate 15 mmole/ 255 mls @ 42.5 mls/hr 10/09/16 08:30 10/09/16 09: 49 Sodium Chloride IVPB 10/09/16 14:29 42.5 mls/hr ONCE ONE Administration Piperacillin Sod/Tazobactam Sod 50 mls @ 100 mls/hr 10/09/16 11:00 10/09/16 11: 57 Zosyn 2.25 Gm Iv Premix IVPB 100 mls/hr Q8H KAILA Administration Insulin Human Regular 0 unit 10/09/16 00:01 10/09/16 12:05 Novolin R SC Not Given Q6H KAILA Protocol Lisinopril 20 mg 10/05/16 18:00 10/09/16 09:51 Zestril NG 20 mg BID KAILA Administration Methylprednisolone 20 mg 10/07/16 10:00 10/09/16 09:50 Solu-Medrol IV 20 mg DAILY KAILA Administration Polyethylene Glycol 17 gm 10/06/16 10:00 10/09/16 10:34 Miralax PO 17 gm DAILY KAILA Administration Rosuvastatin Calcium 10 mg 09/23/16 22:00 10/08/16 22:13 Crestor PO 10 mg HS KAILA Administration - Patient Studies Lab Studies: Lab Studies 10/09/16 10/09/16 10/09/16 Range/Units 11:31 06:08 05:25 WBC 17.4 H (4.8-10.8) K/uL RBC 3.17 L (3.80-5.20) Mil/uL Hgb 9.6 L D (11.0-16.0) g/dL Hct 29.3 L (34.0-47.0) % MCV 92.5 (81.0-99.0) fL MCH 30.2 (27.0-31.0) pg MCHC 32.6 L (33.0-37.0) g/dL RDW 14.3 (11.5-14.5) % Plt Count 137 (130-400) K/uL MPV 9.9 (7.2-11.7) fL Neut % (Auto) 91.1 H (50.0-75.0) % Lymph % (Auto) 4.9 L (20.0-40.0) % [place] % (Auto) 3.5 (0.0-10.0) % Eos % (Auto) 0.0 (0.0-4.0) % Baso % (Auto) 0.5 (0.0-2.0) % Neut # 15.9 H (1.8-7.0) K/uL Lymph # 0.9 L (1.0-4.3) K/uL [place] # 0.6 (0.0-0.8) K/uL Eos # 0.0 (0.0-0.7) K/uL Baso # 0.1 (0.0-0.2) K/uL Neutrophils % (Manual) 86 H (50-75) % Band Neutrophils % 7 H (0-2) % Lymphocytes % (Manual) 3 L (20-40) % Monocytes % (Manual) 4 (0-10) % Platelet Estimate Normal (NORMAL) Large Platelets Present Hypochromasia (manual) Slight Puncture Site Rr pCO2 47 H (35-45) mm/Hg pO2 147 H (80-100) mm/Hg HCO3 31.7 H (21-28) mmol/L ABG pH 7.46 H (7.35-7.45) ABG Total CO2 34.8 H (22-28) mmol/L ABG O2 Saturation 100.1 H (95-98) % ABG Base Excess 8.6 H (-2.0-3.0) mmol/L ABG Hemoglobin 9.7 L (11.7-17.4) g/dL ABG Carboxyhemoglobin 1.7 H (0.5-1.5) % POC ABG HHb (Measured) -0.1 L (0.0-5.0) % ABG Methemoglobin 1.2 (0.0-3.0) % Fish Test Pos A-a O2 Difference 365.0 mm/Hg Respiratory Index 2.5 Hgb O2 Saturation 97.2 (95.0-98.0) % Mechanical Rate 16 FiO2 80.0 % Tidal Volume 400 PEEP 5 Sodium 146 (132-148) mmol/L Potassium 3.0 L (3.6-5.2) mmol/L Chloride 104 (98-107) mmol/L Carbon Dioxide 33 H (22-30) mmol/L Anion Gap 12 (10-20) BUN 36 H (7-17) mg/dL Creatinine 1.2 (0.7-1.2) MG/DL Est GFR ( Amer) 52 Est GFR (Non-Af Amer) 43 POC Glucose (mg/dL) 116 H (65-110) mg/dL Random Glucose 89 (65-105) mg/dL Calcium 7.9 L (8.6-10.4) mg/dl Phosphorus 2.1 L (2.5-4.5) mg/dL Magnesium 1.8 (1.6-2.3) mg/dL Total Bilirubin 0.5 (0.2-1.3) mg/dL AST 27 (14-36) U/L ALT 53 H (9-52) U/L Alkaline Phosphatase 41 (38-126) U/L Total Protein 4.2 L (6.3-8.3) g/dL Albumin 2.1 L D (3.5-5.0) g/dL Globulin 2.1 L (2.2-3.9) gm/dL Albumin/Globulin Ratio 1.0 (1.0-2.1) 10/09/16 10/09/16 10/08/16 Range/Units 04:48 00:19 17:57 WBC (4.8-10.8) K/uL RBC (3.80-5.20) Mil/uL Hgb (11.0-16.0) g/dL Hct (34.0-47.0) % MCV (81.0-99.0) fL MCH (27.0-31.0) pg MCHC (33.0-37.0) g/dL RDW (11.5-14.5) % Plt Count (130-400) K/uL MPV (7.2-11.7) fL Neut % (Auto) (50.0-75.0) % Lymph % (Auto) (20.0-40.0) % [place] % (Auto) (0.0-10.0) % Eos % (Auto) (0.0-4.0) % Baso % (Auto) (0.0-2.0) % Neut # (1.8-7.0) K/uL Lymph # (1.0-4.3) K/uL [place] # (0.0-0.8) K/uL Eos # (0.0-0.7) K/uL Baso # (0.0-0.2) K/uL Neutrophils % (Manual) (50-75) % Band Neutrophils % (0-2) % Lymphocytes % (Manual) (20-40) % Monocytes % (Manual) (0-10) % Platelet Estimate (NORMAL) Large Platelets Hypochromasia (manual) Puncture Site pCO2 (35-45) mm/Hg pO2 (80-100) mm/Hg HCO3 (21-28) mmol/L ABG pH (7.35-7.45) ABG Total CO2 (22-28) mmol/L ABG O2 Saturation (95-98) % ABG Base Excess (-2.0-3.0) mmol/L ABG Hemoglobin (11.7-17.4) g/dL ABG Carboxyhemoglobin (0.5-1.5) % POC ABG HHb (Measured) (0.0-5.0) % ABG Methemoglobin (0.0-3.0) % Fish Test A-a O2 Difference mm/Hg Respiratory Index Hgb O2 Saturation (95.0-98.0) % Mechanical Rate FiO2 % Tidal Volume PEEP Sodium (132-148) mmol/L Potassium (3.6-5.2) mmol/L Chloride (98-107) mmol/L Carbon Dioxide (22-30) mmol/L Anion Gap (10-20) BUN (7-17) mg/dL Creatinine (0.7-1.2) MG/DL Est GFR ( Amer) Est GFR (Non-Af Amer) POC Glucose (mg/dL) 104 123 H 118 H (65-110) mg/dL Random Glucose (65-105) mg/dL Calcium (8.6-10.4) mg/dl Phosphorus (2.5-4.5) mg/dL Magnesium (1.6-2.3) mg/dL Total Bilirubin (0.2-1.3) mg/dL AST (14-36) U/L ALT (9-52) U/L Alkaline Phosphatase (38-126) U/L Total Protein (6.3-8.3) g/dL Albumin (3.5-5.0) g/dL Globulin (2.2-3.9) gm/dL Albumin/Globulin Ratio (1.0-2.1) Laboratory Results - last 24 hr 10/08/16 10/09/16 10/09/16 17:57 00:19 04:48 WBC RBC Hgb Hct MCV MCH MCHC RDW Plt Count MPV Neut % (Auto) Lymph % (Auto) [place] % (Auto) Eos % (Auto) Baso % (Auto) Neut # Lymph # [place] # Eos # Baso # Neutrophils % (Manual) Band Neutrophils % Lymphocytes % (Manual) Monocytes % (Manual) Platelet Estimate Large Platelets Hypochromasia (manual) Puncture Site pCO2 pO2 HCO3 ABG pH ABG Total CO2 ABG O2 Saturation ABG Base Excess ABG Hemoglobin ABG Carboxyhemoglobin POC ABG HHb (Measured) ABG Methemoglobin Fish Test A-a O2 Difference Respiratory Index Hgb O2 Saturation Mechanical Rate FiO2 Tidal Volume PEEP Sodium Potassium Chloride Carbon Dioxide Anion Gap BUN Creatinine Est GFR ( Amer) Est GFR (Non-Af Amer) POC Glucose (mg/dL) 118 H 123 H 104 Random Glucose Calcium Phosphorus Magnesium Total Bilirubin AST ALT Alkaline Phosphatase Total Protein Albumin Globulin Albumin/Globulin Ratio 10/09/16 10/09/16 10/09/16 05:25 06:08 11:31 WBC 17.4 H RBC 3.17 L Hgb 9.6 L D Hct 29.3 L MCV 92.5 MCH 30.2 MCHC 32.6 L RDW 14.3 Plt Count 137 MPV 9.9 Neut % (Auto) 91.1 H Lymph % (Auto) 4.9 L [place] % (Auto) 3.5 Eos % (Auto) 0.0 Baso % (Auto) 0.5 Neut # 15.9 H Lymph # 0.9 L [place] # 0.6 Eos # 0.0 Baso # 0.1 Neutrophils % (Manual) 86 H Band Neutrophils % 7 H Lymphocytes % (Manual) 3 L Monocytes % (Manual) 4 Platelet Estimate Normal Large Platelets Present Hypochromasia (manual) Slight Puncture Site Rr pCO2 47 H pO2 147 H HCO3 31.7 H ABG pH 7.46 H ABG Total CO2 34.8 H ABG O2 Saturation 100.1 H ABG Base Excess 8.6 H ABG Hemoglobin 9.7 L ABG Carboxyhemoglobin 1.7 H POC ABG HHb (Measured) -0.1 L ABG Methemoglobin 1.2 Fish Test Pos A-a O2 Difference 365.0 Respiratory Index 2.5 Hgb O2 Saturation 97.2 Mechanical Rate 16 FiO2 80.0 Tidal Volume 400 PEEP 5 Sodium 146 Potassium 3.0 L Chloride 104 Carbon Dioxide 33 H Anion Gap 12 BUN 36 H Creatinine 1.2 Est GFR ( Amer) 52 Est GFR (Non-Af Amer) 43 POC Glucose (mg/dL) 116 H Random Glucose 89 Calcium 7.9 L Phosphorus 2.1 L Magnesium 1.8 Total Bilirubin 0.5 AST 27 ALT 53 H Alkaline Phosphatase 41 Total Protein 4.2 L Albumin 2.1 L D Globulin 2.1 L Albumin/Globulin Ratio 1.0 Fingerstick Blood Sugar Results: 117 Review of Systems - Review of Systems Systems not reviewed;Unavailable: Intubated Review of Systems: intubated and sedated at this time Assessment/Plan - Assessment and Plan (Free Text) Assessment: 86-year-old female with PMHx significant for COPD hypertension and CAD, initially presented to ICU with acute respiratory failure and hypercarbic encephalopathy. Patient had episode of significant epistaxis over the weekend for which nasal packing was placed. Patient desaturated 10/08/16 in mild distress prompting re-intubation. Patient with large left sided pleural effusion to undergo thoracentesis. Plan: Neuro: Re-intubated and sedated 10/08/16 Could not comply with ROS at this time 09/23/16 CT Head- Generalized atrophy. Nonspecific white matter changes. Cardiovascular: Better rate control noted HTN Diltiazem 5 mg IV Q6H Plavix 75mg PO daily- held due to bleed Lisinopril 20mg NG BID daily Aspirin 81mg po daily- held due to bleed Rouvastatin 10mg po HS Pulmonary: Continue ventilatory support, follow up ABG and reduce FiO2 as tolerated Patient extubated 8:50AM 10/02/16; however re-intubated 10/08/16 due to desaturation into the 80s. Solumedrol tapered down- 20mg IV daily Budesonide 0.5mg INH Q12 Imagin10/09/[address]- increasing pleural effusions let greater than right with associated compressive atelectasis and pneumonia; nodule noted as prev mentioned - Will require thoracentesis 10/09/16 CXR- Lines and tubes in stable position. Persistent near complete opacification of the left susie thorax with moderate to large left pleural effusion. Diffuse increased interstitial lung markings in the right lung with some relative consolidation in the medial right infrahilar region. 10/08/16 CXR- ET tube 4 cm above vicente; moderate left pleural effusion; underlying atelectasis/pneumonia cannot be excluded 10/06/[address]/Pelvis- 6 mm right middle lobe pulmonary nodule- moderate bilateral pleural effusions and associated compressive consolidations 10/02/16 CXR- Possible small left pleural effusion. No infiltrate. 10/01/16 CXR- No infiltrate. Lines and tubes unchanged. 09/30/16 CXR- No active pulmonary disease. Stable position of tubes. 09/29/16 CXR- Interval improvement in the right lung since the previous exam. 09/28/16 CXR- Interval worsening of heterogeneous opacities at the right lower lung since the previous exam. Appropriate position of the ETT and NG tube. AB10/09/16 pH 7.46, PCO2 47, PO2 147, HCO3 31.7 10/08/16 pH 7.34, pCO2 60, PO2 159, HCO3 28.9 ( improved) 10/07/16 pH 7.3, CO2 74, O2 40, HCO2 30.4 GI: Pepcid 20 mg IV daily GI may consider Amitiza if necc. Feeds can be restarted at 30 mls/hr under obs. - F/U Abdominal distension- CT Abdomen 10/06/16- Cholelithiasis, anasarca, unremarkable unenhanced appearance of liver, pancreas and spleen. Stomach nondistended and bowel loops WNL w/o evidence of intestinal obstruction- moderate diffuse distension of the colon GI Consult- Dr. Ayala- Considerations for CT abdomen- See aforementioned; on Flagyl 500 mg PO TID; F/U C diff studies Gen Surg Consult- Dr. Jimenez- -no surgical intervention at this time- sign off Lactulose 20mg po HS DC- Ammonia stable 10/01/16 Abd XR- Mild dilatation of the transverse and ascending colon. No evidence of small bowel obstruction. No masses or abnormal intra-abdominal calcifications. Nasogastric tube tip in left upper quadrant of abdomen. No definite free intraperitoneal air. 09/29/16 CT ABd/Pelv- 1. Cholelithiasis without CT evidence for acute cholecystitis. 2. Colonic distention with air-fluid levels which may represent ileus or pseudo obstruction, no definite evidence of mass or colitis. 3. Mild sigmoid diverticulosis without CT evidence for acute diverticulitis. 4. Several large simple cysts in the left kidney. Nonvisualization of the right kidney. 5. Mild ascites and moderate bilateral pleural effusions. 09/29/16 Abd XR- Moderately dilated bowel loops at the mid to upper abdomen right more than left. If clinically warranted further assessment by CT is suggested. Purred diet with thin liquids s/p passing of swallow eval Hematology: nasal packing removed- epistaxis resolved WBC 17.4- decreasing Hgb/Hct stable : 9.6/29.3- Monitor Endocrine: Maintain euglycemia HbA1c- 5.9 Insulin Sliding Scale protocol Renal: Initial KAYLEN improving. BUN/Cr: 36/1.2 Hypokalemia- repleted Hypernatremia- resolved ID: U/A negative, UC negative Blood Cx negative DC Abx 10/03/16 : Perez in place MSK: None Palliative Care: Palliative Care Consult Placed- F/U Prophylaxis- Pepcid 20mg po daily Lovenox 40mg sc HELD due to epistaxis event, SCDs in place Ensure Enlive - three times a day <Kendrick Yo S - Last Filed: 10/09/16 16:41> CCU Objective - Vital Signs / Intake & Output Vital Signs (Last 4 hours): Vital Signs Temp Pulse Resp BP Pulse Ox 10/09/16 16:02 76 16 109/65 100 10/09/16 16:00 96.6 F L 10/09/16 15:01 76 16 94/50 L 100 10/09/16 14:30 74 16 100 10/09/16 14:01 81 16 109/50 L 100 10/09/16 14:00 77 16 100 10/09/16 13:30 80 16 100 10/09/16 13:02 84 16 94/46 L 99 Intake and Output (Last 8hrs): Intake & Output 10/09/16 10/09/16 10/09/16 06:59 14:59 22:59 Intake Total 740.0 848.0 175.0 Output Total 310 400 80 Balance 430.0 448.0 95.0 Weight 157 lb 1 oz Intake: Intake, IV Amount 740.0 848.0 175.0 Right Proximal Port 90.0 100.0 25.0 Subclavian Right Distal Port 650 598 150 Subclavian Right Medial Port 150 Subclavian Output: Urine 310 400 80 Urethral (Perez) 310 Urine, Voided 400 80 Other: # Bowel Movements 1 - Medications Active Medications: Active Medications Generic Name Dose Route Start Last Admin Trade Name Freq PRN Reason Stop Dose Admin Albuterol/Ipratropium 3 ml 10/08/16 20:00 10/09/16 15:42 Duoneb 3 Mg/0.5 Mg (3 Ml) Ud INH 3 ml RQ4 KAILA Administration Aspirin 81 mg 09/24/16 18:30 10/05/16 09:14 Aspirin Chewable PO 81 mg DAILY KAILA Administration Budesonide 0.5 mg 10/02/16 20:00 10/09/16 07:24 Pulmicort Respules INH 0.5 mg RQ12 KAILA Administration Clopidogrel Bisulfate 75 mg 09/26/16 10:00 10/05/16 09:14 Plavix PO 75 mg DAILY KAILA Administration Diltiazem HCl 5 mg 10/07/16 21:00 10/09/16 14:20 Cardizem IVP 5 mg Q6H KAILA Administration Enoxaparin Sodium 40 mg 09/26/16 13:00 10/05/16 09:14 Lovenox SC 40 mg DAILY KAILA Administration Famotidine 20 mg 10/08/16 10:00 10/09/16 09:48 Pepcid IVP 20 mg DAILY KAILA Administration Doxycycline Hyclate 100 mg/ 100 mls @ 100 mls/hr 10/07/16 05:00 10/09/16 04:51 Sodium Chloride IVPB 100 mls/hr Q12H KAILA Administration Lactated Ringer's 1,000 mls @ 75 mls/hr 10/07/16 21:00 10/09/16 04:56 Lactated Ringer's IV 75 mls/hr .[id number] KAILA Administration Metronidazole 100 mls @ 100 mls/hr 10/07/16 22:00 10/09/16 14:32 Flagyl IVPB 100 mls/hr Q8 KAILA Administration Propofol 100 mls @ 2.097 mls/hr 10/08/16 12:30 10/09/16 12:04 Diprivan IV 12.584 mls/hr .Q24H PRN Administration TITRATE PER MD ORDER Protocol 5 MCG/KG/MIN Piperacillin Sod/Tazobactam Sod 50 mls @ 100 mls/hr 10/09/16 11:00 10/09/16 11: 57 Zosyn 2.25 Gm Iv Premix IVPB 100 mls/hr Q8H KAILA Administration Insulin Human Regular 0 unit 10/09/16 00:01 10/09/16 12:05 Novolin R SC Not Given Q6H KAILA Protocol Lisinopril 20 mg 10/05/16 18:00 10/09/16 09:51 Zestril NG 20 mg BID KAILA Administration Methylprednisolone 20 mg 10/07/16 10:00 10/09/16 09:50 Solu-Medrol IV 20 mg DAILY KAILA Administration Polyethylene Glycol 17 gm 10/06/16 10:00 10/09/16 10:34 Miralax PO 17 gm DAILY KAILA Administration Rosuvastatin Calcium 10 mg 09/23/16 22:00 10/08/16 22:13 Crestor PO 10 mg HS KAILA Administration - Patient Studies Lab Studies: Lab Studies 10/09/16 10/09/16 10/09/16 Range/Units 11:31 06:08 05:25 WBC 17.4 H (4.8-10.8) K/uL RBC 3.17 L (3.80-5.20) Mil/uL Hgb 9.6 L D (11.0-16.0) g/dL Hct 29.3 L (34.0-47.0) % MCV 92.5 (81.0-99.0) fL MCH 30.2 (27.0-31.0) pg MCHC 32.6 L (33.0-37.0) g/dL RDW 14.3 (11.5-14.5) % Plt Count 137 (130-400) K/uL MPV 9.9 (7.2-11.7) fL Neut % (Auto) 91.1 H (50.0-75.0) % Lymph % (Auto) 4.9 L (20.0-40.0) % [place] % (Auto) 3.5 (0.0-10.0) % Eos % (Auto) 0.0 (0.0-4.0) % Baso % (Auto) 0.5 (0.0-2.0) % Neut # 15.9 H (1.8-7.0) K/uL Lymph # 0.9 L (1.0-4.3) K/uL [place] # 0.6 (0.0-0.8) K/uL Eos # 0.0 (0.0-0.7) K/uL Baso # 0.1 (0.0-0.2) K/uL Neutrophils % (Manual) 86 H (50-75) % Band Neutrophils % 7 H (0-2) % Lymphocytes % (Manual) 3 L (20-40) % Monocytes % (Manual) 4 (0-10) % Platelet Estimate Normal (NORMAL) Large Platelets Present Hypochromasia (manual) Slight Puncture Site Rr pCO2 47 H (35-45) mm/Hg pO2 147 H (80-100) mm/Hg HCO3 31.7 H (21-28) mmol/L ABG pH 7.46 H (7.35-7.45) ABG Total CO2 34.8 H (22-28) mmol/L ABG O2 Saturation 100.1 H (95-98) % ABG Base Excess 8.6 H (-2.0-3.0) mmol/L ABG Hemoglobin 9.7 L (11.7-17.4) g/dL ABG Carboxyhemoglobin 1.7 H (0.5-1.5) % POC ABG HHb (Measured) -0.1 L (0.0-5.0) % ABG Methemoglobin 1.2 (0.0-3.0) % Fish Test Pos A-a O2 Difference 365.0 mm/Hg Respiratory Index 2.5 Hgb O2 Saturation 97.2 (95.0-98.0) % Mechanical Rate 16 FiO2 80.0 % Tidal Volume 400 PEEP 5 Sodium 146 (132-148) mmol/L Potassium 3.0 L (3.6-5.2) mmol/L Chloride 104 (98-107) mmol/L Carbon Dioxide 33 H (22-30) mmol/L Anion Gap 12 (10-20) BUN 36 H (7-17) mg/dL Creatinine 1.2 (0.7-1.2) MG/DL Est GFR ( Amer) 52 Est GFR (Non-Af Amer) 43 POC Glucose (mg/dL) 116 H (65-110) mg/dL Random Glucose 89 (65-105) mg/dL Calcium 7.9 L (8.6-10.4) mg/dl Phosphorus 2.1 L (2.5-4.5) mg/dL Magnesium 1.8 (1.6-2.3) mg/dL Total Bilirubin 0.5 (0.2-1.3) mg/dL AST 27 (14-36) U/L ALT 53 H (9-52) U/L Alkaline Phosphatase 41 (38-126) U/L Total Protein 4.2 L (6.3-8.3) g/dL Albumin 2.1 L D (3.5-5.0) g/dL Globulin 2.1 L (2.2-3.9) gm/dL Albumin/Globulin Ratio 1.0 (1.0-2.1) 10/09/16 10/09/16 10/08/16 Range/Units 04:48 00:19 17:57 WBC (4.8-10.8) K/uL RBC (3.80-5.20) Mil/uL Hgb (11.0-16.0) g/dL Hct (34.0-47.0) % MCV (81.0-99.0) fL MCH (27.0-31.0) pg MCHC (33.0-37.0) g/dL RDW (11.5-14.5) % Plt Count (130-400) K/uL MPV (7.2-11.7) fL Neut % (Auto) (50.0-75.0) % Lymph % (Auto) (20.0-40.0) % [place] % (Auto) (0.0-10.0) % Eos % (Auto) (0.0-4.0) % Baso % (Auto) (0.0-2.0) % Neut # (1.8-7.0) K/uL Lymph # (1.0-4.3) K/uL [place] # (0.0-0.8) K/uL Eos # (0.0-0.7) K/uL Baso # (0.0-0.2) K/uL Neutrophils % (Manual) (50-75) % Band Neutrophils % (0-2) % Lymphocytes % (Manual) (20-40) % Monocytes % (Manual) (0-10) % Platelet Estimate (NORMAL) Large Platelets Hypochromasia (manual) Puncture Site pCO2 (35-45) mm/Hg pO2 (80-100) mm/Hg HCO3 (21-28) mmol/L ABG pH (7.35-7.45) ABG Total CO2 (22-28) mmol/L ABG O2 Saturation (95-98) % ABG Base Excess (-2.0-3.0) mmol/L ABG Hemoglobin (11.7-17.4) g/dL ABG Carboxyhemoglobin (0.5-1.5) % POC ABG HHb (Measured) (0.0-5.0) % ABG Methemoglobin (0.0-3.0) % Fish Test A-a O2 Difference mm/Hg Respiratory Index Hgb O2 Saturation (95.0-98.0) % Mechanical Rate FiO2 % Tidal Volume PEEP Sodium (132-148) mmol/L Potassium (3.6-5.2) mmol/L Chloride (98-107) mmol/L Carbon Dioxide (22-30) mmol/L Anion Gap (10-20) BUN (7-17) mg/dL Creatinine (0.7-1.2) MG/DL Est GFR ( Amer) Est GFR (Non-Af Amer) POC Glucose (mg/dL) 104 123 H 118 H (65-110) mg/dL Random Glucose (65-105) mg/dL Calcium (8.6-10.4) mg/dl Phosphorus (2.5-4.5) mg/dL Magnesium (1.6-2.3) mg/dL Total Bilirubin (0.2-1.3) mg/dL AST (14-36) U/L ALT (9-52) U/L Alkaline Phosphatase (38-126) U/L Total Protein (6.3-8.3) g/dL Albumin (3.5-5.0) g/dL Globulin (2.2-3.9) gm/dL Albumin/Globulin Ratio (1.0-2.1) Laboratory Results - last 24 hr 10/08/16 10/09/16 10/09/16 17:57 00:19 04:48 WBC RBC Hgb Hct MCV MCH MCHC RDW Plt Count MPV Neut % (Auto) Lymph % (Auto) [place] % (Auto) Eos % (Auto) Baso % (Auto) Neut # Lymph # [place] # Eos # Baso # Neutrophils % (Manual) Band Neutrophils % Lymphocytes % (Manual) Monocytes % (Manual) Platelet Estimate Large Platelets Hypochromasia (manual) Puncture Site pCO2 pO2 HCO3 ABG pH ABG Total CO2 ABG O2 Saturation ABG Base Excess ABG Hemoglobin ABG Carboxyhemoglobin POC ABG HHb (Measured) ABG Methemoglobin Fish Test A-a O2 Difference Respiratory Index Hgb O2 Saturation Mechanical Rate FiO2 Tidal Volume PEEP Sodium Potassium Chloride Carbon Dioxide Anion Gap BUN Creatinine Est GFR ( Amer) Est GFR (Non-Af Amer) POC Glucose (mg/dL) 118 H 123 H 104 Random Glucose Calcium Phosphorus Magnesium Total Bilirubin AST ALT Alkaline Phosphatase Total Protein Albumin Globulin Albumin/Globulin Ratio 10/09/16 10/09/16 10/09/16 05:25 06:08 11:31 WBC 17.4 H RBC 3.17 L Hgb 9.6 L D Hct 29.3 L MCV 92.5 MCH 30.2 MCHC 32.6 L RDW 14.3 Plt Count 137 MPV 9.9 Neut % (Auto) 91.1 H Lymph % (Auto) 4.9 L [place] % (Auto) 3.5 Eos % (Auto) 0.0 Baso % (Auto) 0.5 Neut # 15.9 H Lymph # 0.9 L [place] # 0.6 Eos # 0.0 Baso # 0.1 Neutrophils % (Manual) 86 H Band Neutrophils % 7 H Lymphocytes % (Manual) 3 L Monocytes % (Manual) 4 Platelet Estimate Normal Large Platelets Present Hypochromasia (manual) Slight Puncture Site Rr pCO2 47 H pO2 147 H HCO3 31.7 H ABG pH 7.46 H ABG Total CO2 34.8 H ABG O2 Saturation 100.1 H ABG Base Excess 8.6 H ABG Hemoglobin 9.7 L ABG Carboxyhemoglobin 1.7 H POC ABG HHb (Measured) -0.1 L ABG Methemoglobin 1.2 Fish Test Pos A-a O2 Difference 365.0 Respiratory Index 2.5 Hgb O2 Saturation 97.2 Mechanical Rate 16 FiO2 80.0 Tidal Volume 400 PEEP 5 Sodium 146 Potassium 3.0 L Chloride 104 Carbon Dioxide 33 H Anion Gap 12 BUN 36 H Creatinine 1.2 Est GFR ( Amer) 52 Est GFR (Non-Af Amer) 43 POC Glucose (mg/dL) 116 H Random Glucose 89 Calcium 7.9 L Phosphorus 2.1 L Magnesium 1.8 Total Bilirubin 0.5 AST 27 ALT 53 H Alkaline Phosphatase 41 Total Protein 4.2 L Albumin 2.1 L D Globulin 2.1 L Albumin/Globulin Ratio 1.0 Assessment/Plan (1) COPD (chronic obstructive pulmonary disease) Current Visit: Yes Status: Chronic (2) Acute [place] Current Visit: Yes Status: Acute (3) Leucocytosis Current Visit: Yes Status: Acute Attending/Attestation - Attestation I have personally seen and examined this patient.: Yes I have fully participated in the care of the patient.: Yes I have reviewed all pertinent clinical information: Yes Notes (Text): 10/09/16 16:28 Patient seen and examined in the intensive care unit. Case discussed with house staff in the morning rounds. Remains intubated on ventilatory support requiring high FiO2 CAT scan of the chest consistent with large left pleural effusion Continue antibiotics Thoracentesis IV steroids and bronchodilators OGT feeding
--- NOTE | 2016-10-09 16:29 | US ---
Left chest ultrasound History: Pleural effusion. Findings: Limited ultrasound evaluation of the left chest. There is a moderate to large size pleural effusion. Impression: Left-sided pleural effusion.
--- NOTE | 2016-10-09 23:38 | CP.PCM.PN ---
Subjective - Date & Time of Evaluation Date of Evaluation: 10/09/16 Time of Evaluation: 12:57 - Subjective Subjective: Pt seen and examined in no acute distress. pt is on Mechanical ventilator, sedated Objective - Vital Signs/Intake and Output Vital Signs (last 24 hours): Temp Pulse Resp BP Pulse Ox 96.6 F L 81 16 113/53 L 100 10/09/16 16:00 10/09/16 21:30 10/09/16 21:30 10/09/16 21:01 10/09/16 21:30 Intake and Output: 10/09/16 10/10/16 18:59 06:59 Intake Total 1263.0 537.5 Output Total 590 290 Balance 673.0 247.5 - Medications Medications: Current Medications Albuterol/Ipratropium (Duoneb 3 Mg/0.5 Mg (3 Ml) Ud) 3 ml INH RQ4 [facility] Last Admin: 10/09/16 19:26 Dose: 3 ml Aspirin (Aspirin Chewable) 81 mg PO DAILY [facility] Last Admin: 10/05/16 09:14 Dose: 81 mg Budesonide (Pulmicort Respules) 0.5 mg INH RQ12 [facility] Last Admin: 10/09/16 19:26 Dose: 0.5 mg Clopidogrel Bisulfate (Plavix) 75 mg PO DAILY [facility] Last Admin: 10/05/16 09:14 Dose: 75 mg Diltiazem HCl (Cardizem) 5 mg IVP Q6H [facility] Last Admin: 10/09/16 21:38 Dose: 5 mg Enoxaparin Sodium (Lovenox) 40 mg SC DAILY [facility] Last Admin: 10/05/16 09:14 Dose: 40 mg Famotidine (Pepcid) 20 mg IVP DAILY [facility] Last Admin: 10/09/16 09:48 Dose: 20 mg Doxycycline Hyclate 100 mg/ (Sodium Chloride) 100 mls @ 100 mls/hr IVPB Q12H [facility] Last Admin: 10/09/16 16:42 Dose: 100 mls/hr Lactated Ringer's (Lactated Ringer's) 1,000 mls @ 75 mls/hr IV .[id number] [facility] Last Admin: 10/09/16 16:42 Dose: Not Given Metronidazole (Flagyl) 100 mls @ 100 mls/hr IVPB Q8 [facility] Last Admin: 10/09/16 21:39 Dose: 100 mls/hr Propofol (Diprivan) 100 mls @ 2.097 mls/hr IV .Q24H PRN; Protocol; 5 MCG/KG/MIN PRN Reason: TITRATE PER MD ORDER Last Admin: 10/09/16 17:31 Dose: 12.584 mls/hr Piperacillin Sod/Tazobactam Sod (Zosyn 2.25 Gm Iv Premix) 50 mls @ 100 mls/hr IVPB Q8H [facility] Last Admin: 10/09/16 18:20 Dose: 100 mls/hr Insulin Human Regular (Novolin R) 0 unit SC Q6H [facility] PRN Reason: Protocol Last Admin: 10/09/16 18:18 Dose: Not Given Lisinopril (Zestril) 20 mg NG BID [facility] Last Admin: 10/09/16 17:31 Dose: 20 mg Methylprednisolone (Solu-Medrol) 20 mg IV DAILY [facility] Last Admin: 10/09/16 09:50 Dose: 20 mg Polyethylene Glycol (Miralax) 17 gm PO DAILY [facility] Last Admin: 10/09/16 10:34 Dose: 17 gm Rosuvastatin Calcium (Crestor) 10 mg PO HS [facility] Last Admin: 10/09/16 21:38 Dose: 10 mg - Labs Labs: 10/09/16 06:08 10/09/16 06:08 PT 12.3 SECONDS (9.7-12.2) H 10/06/16 01:34 INR 1.1 10/06/16 01:34 APTT 27 SECONDS (21-34) 10/06/16 01:34 - Constitutional Appears: No Acute Distress, Chronically Ill - Respiratory Exam Respiratory Exam: Clear to Ausculation Bilateral, NORMAL BREATHING PATTERN - Cardiovascular Exam Cardiovascular Exam: REGULAR RHYTHM, +S1, +S2. absent: Murmur - Neurological Exam Neurological Exam: Altered Assessment and Plan (1) Acute respiratory failure with hypoxia and hypercarbia Status: Resolved (2) Altered mental status Status: Resolved (3) Acute [place] Status: Acute (4) Dehydration Status: Acute
[2016-10-10] MEDS: Albuterol-Ipratrop 3 mg / 0.5 (3 ml) UD INH SCH ×7 (00:07→23:56)
[2016-10-10] MEDS: Piperacill/Tazo 2.25gm in Dex 50 ML IVPB SCH ×3 (02:31→18:20)
[2016-10-10] MEDS: Lactated Ringer's 1,000 ML IV SCH ×3 (02:36→18:42)
[2016-10-10] MEDS: metroNIDAZOLE IV 500 mg/100 ml 100 ML IVPB SCH ×3 (05:04→21:24)
[2016-10-10 05:37] LABS: ABG ALLEN TEST POS; ABG MECHANICAL RATE 16; ATERIAL BLOOD GAS PEEP 5; CARBOXYHEMOGLOBIN 1.3 % (0.5-1.5); DRAW SITE RR; HHB 0.4 % (0.0-5.0); METHEMOGLOBIN 1.2 % (0.0-3.0)
[2016-10-10] MEDS: (Novolin R) Insulin Human Regular 100 units/ml vial SC SCH ×4 (06:29→18:23)
[2016-10-10 06:53] LABS: BASO % 0.1 % (0.0-2.0); HEMATOCRIT 26.9 % (34.0-47.0); LYMPH # 0.9 K/uL (1.0-4.3); LYMPH % 7.4 % (20.0-40.0); MEAN CELL VOLUME 92.2 fL (81.0-99.0); MEAN CORPUSCULAR HEMOGLOBIN 30.8 pg (27.0-31.0); MEAN CORPUSCULAR HGB CONC 33.4 g/dL (33.0-37.0); MEAN PLATELET VOLUME 10.2 fL (7.2-11.7); MONO # 0.6 K/uL (0.0-0.8); MONO % 5.2 % (0.0-10.0); PLATELET COUNT 129 K/uL (130-400); RED CELL DISTRIBUTION WIDTH 14.6 % (11.5-14.5); WHITE BLOOD COUNT 12.4 K/uL (4.8-10.8)
[2016-10-10 06:54] LABS: POTASSIUM 3.3 mmol/L (3.6-5.2)
[2016-10-10 06:56] LABS: BILIRUBIN,TOTAL 0.4 mg/dL (0.2-1.3); TOTAL PROTEIN 3.9 g/dL (6.3-8.3)
[2016-10-10 06:57] LABS: CALCIUM 7.6 mg/dl (8.6-10.4); MAGNESIUM 1.6 mg/dL (1.6-2.3); PHOSPHOROUS 3.1 mg/dL (2.5-4.5)
[2016-10-10] MEDS: Budesonide 0.5 mg/2 ml Inhal Susp UD INH SCH ×2 (07:39→19:27)
--- NOTE | 2016-10-10 07:45 | CP.CCUPN ---
<Katarzyna Hearn - Last Filed: 10/10/16 21:06> CCU Subjective - Physician Review Subjective (Free Text): 10/07/16 12:24 Patient was seen and examined in no acute distress. No acute events overnight. Packing remains in place. Patient appears more lethargic today at times as compared to her normal baseline. Patient was extubated 10/02/16 with O2 saturation in high 90s on venti mask. The patient has passed a swallow evaluation and eating though minimally. Per nursing, patient has not had a BM in 5-6 days. The patient did not comply with ROS due to somnolence. 10/08/16 12:48 Pt seen and examined though increasingly lethargic on evaluation and as per nursing. Patient desaturated into the 80's in mild distress prompting the need for intubation. A ROS could not be obtained due to patient's lethargy 10/09/16 14:24 Pt seen and examined in no acute distress. Patient intubated 10/08/16 with TLC placed with no events per nursing. A ROS could not be obtained due to patient's lethargy. 10/10/16 21:06 Pt seen and examined in no acute distress. No events overnight per nursing. An ROS could not be obtained due to patient being intubated and sedated. CCU Objective - Vital Signs / Intake & Output Vital Signs (Last 4 hours): Vital Signs Temp Pulse Resp BP Pulse Ox 10/10/16 07:01 74 16 94/46 L 100 10/10/16 06:33 74 17 100 10/10/16 06:30 75 16 100 10/10/16 06:01 69 18 110/56 L 100 10/10/16 06:00 74 16 100 10/10/16 05:30 75 16 100 10/10/16 05:01 75 16 104/49 L 100 10/10/16 04:30 74 16 100 10/10/16 04:16 70 16 100 10/10/16 04:01 70 16 98/47 L 100 10/10/16 04:00 97.7 F 76 15 100 Intake and Output (Last 8hrs): Intake & Output 10/09/16 10/10/16 10/10/16 22:59 06:59 14:59 Intake Total 845.0 992.0 Output Total 430 280 Balance 415.0 712.0 Weight 157 lb 6.561 oz Intake: Intake, IV Amount 725.0 762.0 Right Proximal Port 100.0 100.0 Subclavian Right Distal Port 625 662 Subclavian Tube Feeding 120 230 Output: Urine 430 280 Urine, Voided 430 280 Other: # Bowel Movements 1 - Physical Exam Head: Positive for: Atraumatic, Normocephalic, Other (ET Tube in place) Pupils: Positive for: PERRL Extroacular Muscles: Positive for: EOMI Conjunctiva: Positive for: Injected Mouth: Positive for: Dry Nose (Internal): Positive for: Other (Nasal packing in place) Neck: Positive for: Normal Range of Motion Respiratory/Chest: Positive for: Clear to Auscultation, Good Air Exchange, Rales. Negative for: Respiratory Distress, Accessory Muscle Use Cardiovascular: Positive for: Normal S1, S2, Irregular Rhythm. Negative for: Regular Rate and Rhythm, Murmurs Abdomen: Positive for: Distention, Normal Bowel Sounds. Negative for: Peritoneal Signs, Rebound Genitourinary/Pelvic Exam: Positive for: Other (perez in place) Upper Extremity: Positive for: Normal Inspection. Negative for: Cyanosis, Edema Lower Extremity: Positive for: Normal Inspection. Negative for: Edema, CALF TENDERNESS Neurological: Positive for: CN II-XII Intact Skin: Positive for: Warm, Dry Psychiatric: Positive for: Alert - Medications Active Medications: Active Medications Generic Name Dose Route Start Last Admin Trade Name Freq PRN Reason Stop Dose Admin Albuterol/Ipratropium 3 ml 10/08/16 20:00 10/10/16 07:39 Duoneb 3 Mg/0.5 Mg (3 Ml) Ud INH [address] [facility] Administration Aspirin 81 mg 09/24/16 18:30 10/05/16 09:14 Aspirin Chewable PO [address] [facility] Administration Budesonide 0.5 mg 10/02/16 20:00 10/10/16 07:39 Pulmicort Respules INH 0.5 mg RQ12 [facility] Administration Clopidogrel Bisulfate 75 mg 09/26/16 10:00 10/05/16 09:14 Plavix PO 75 mg DAILY [facility] Administration Diltiazem HCl 5 mg 10/07/16 21:00 10/10/16 03:09 Cardizem IVP Not Given Q6H [facility] Enoxaparin Sodium 40 mg 09/26/16 13:00 10/05/16 09:14 Lovenox SC 40 mg DAILY [facility] Administration Famotidine 20 mg 10/08/16 10:00 10/09/16 09:48 Pepcid IVP 20 mg DAILY [facility] Administration Doxycycline Hyclate 100 mg/ 100 mls @ 100 mls/hr 10/07/16 05:00 10/10/16 04:11 Sodium Chloride IVPB 100 mls/hr Q12H [facility] Administration Lactated Ringer's 1,000 mls @ 75 mls/hr 10/07/16 21:00 10/10/16 02:36 Lactated Ringer's IV Not Given .[id number] [facility] Metronidazole 100 mls @ 100 mls/hr 10/07/16 22:00 10/10/16 05:04 Flagyl IVPB 100 mls/hr Q8 [facility] Administration Propofol 100 mls @ 2.097 mls/hr 10/08/16 12:30 10/10/16 02:30 Diprivan IV 12.584 mls/hr .Q24H PRN Administration TITRATE PER MD ORDER Protocol 5 MCG/KG/MIN Piperacillin Sod/Tazobactam Sod 50 mls @ 100 mls/hr 10/09/16 11:00 10/10/16 02: 31 Zosyn 2.25 Gm Iv Premix IVPB 100 mls/hr Q8H [facility] Administration Potassium Chloride 100 mls @ 50 mls/hr 10/10/16 07:41 Potassium Chloride 20 Meq/100 Ml IVPB 10/10/16 09:40 ONCE ONE Insulin Human Regular 0 unit 10/09/16 00:01 10/10/16 06:29 Novolin R SC 2 unit Q6H [facility] Administration Protocol Lisinopril 20 mg 10/05/16 18:00 10/09/16 17:31 Zestril NG 20 mg BID [facility] Administration Methylprednisolone 20 mg 10/07/16 10:00 10/09/16 09:50 Solu-Medrol IV 20 mg DAILY [facility] Administration Polyethylene Glycol 17 gm 10/06/16 10:00 10/09/16 10:34 Miralax PO 17 gm DAILY [facility] Administration Rosuvastatin Calcium 10 mg 09/23/16 22:00 10/09/16 21:38 Crestor PO 10 mg HS [facility] Administration - Patient Studies Lab Studies: Lab Studies 10/10/16 10/10/16 10/09/16 Range/Units 06:34 05:16 23:51 WBC 12.4 H (4.8-10.8) K/uL RBC 2.92 L (3.80-5.20) Mil/uL Hgb 9.0 L (11.0-16.0) g/dL Hct 26.9 L (34.0-47.0) % MCV 92.2 (81.0-99.0) fL MCH 30.8 (27.0-31.0) pg MCHC 33.4 (33.0-37.0) g/dL RDW 14.6 H (11.5-14.5) % Plt Count 129 L (130-400) K/uL MPV 10.2 (7.2-11.7) fL Neut % (Auto) 87.3 H (50.0-75.0) % Lymph % (Auto) 7.4 L (20.0-40.0) % Benzie % (Auto) 5.2 (0.0-10.0) % Eos % (Auto) 0.0 (0.0-4.0) % Baso % (Auto) 0.1 (0.0-2.0) % Neut # 10.8 H (1.8-7.0) K/uL Lymph # 0.9 L (1.0-4.3) K/uL Benzie # 0.6 (0.0-0.8) K/uL Eos # 0.0 (0.0-0.7) K/uL Baso # 0.0 (0.0-0.2) K/uL Neutrophils % (Manual) (50-75) % Band Neutrophils % (0-2) % Lymphocytes % (Manual) (20-40) % Monocytes % (Manual) (0-10) % Platelet Estimate (NORMAL) Large Platelets Hypochromasia (manual) Puncture Site Rr pCO2 48 H (35-45) mm/Hg pO2 147 H (80-100) mm/Hg HCO3 29.5 H (21-28) mmol/L ABG pH 7.42 (7.35-7.45) ABG Total CO2 32.6 H (22-28) mmol/L ABG O2 Saturation 99.6 H (95-98) % ABG Base Excess 5.9 H (-2.0-3.0) mmol/L ABG Hemoglobin 9.0 L (11.7-17.4) g/dL ABG Carboxyhemoglobin 1.3 (0.5-1.5) % POC ABG HHb (Measured) 0.4 (0.0-5.0) % ABG Methemoglobin 1.2 (0.0-3.0) % Fish Test Pos A-a O2 Difference 292.0 mm/Hg Respiratory Index 2.0 Hgb O2 Saturation 97.0 (95.0-98.0) % Mechanical Rate 16 FiO2 70.0 % Tidal Volume 400 PEEP 5 Sodium 146 (132-148) mmol/L Potassium 3.3 L (3.6-5.2) mmol/L Chloride 105 (98-107) mmol/L Carbon Dioxide 32 H (22-30) mmol/L Anion Gap 12 (10-20) BUN 31 H (7-17) mg/dL Creatinine 1.3 H (0.7-1.2) MG/DL Est GFR ( Amer) 47 Est GFR (Non-Af Amer) 39 POC Glucose (mg/dL) 154 H 107 (65-110) mg/dL Random Glucose 138 H (65-105) mg/dL Calcium 7.6 L (8.6-10.4) mg/dl Phosphorus 3.1 (2.5-4.5) mg/dL Magnesium 1.6 (1.6-2.3) mg/dL Total Bilirubin 0.4 (0.2-1.3) mg/dL AST 24 (14-36) U/L ALT 48 (9-52) U/L Alkaline Phosphatase 43 (38-126) U/L Total Protein 3.9 L (6.3-8.3) g/dL Albumin 1.9 L (3.5-5.0) g/dL Globulin 2.0 L (2.2-3.9) gm/dL Albumin/Globulin Ratio 1.0 (1.0-2.1) 10/09/16 10/09/16 10/09/16 Range/Units 18:04 11:31 06:08 WBC (4.8-10.8) K/uL RBC (3.80-5.20) Mil/uL Hgb (11.0-16.0) g/dL Hct (34.0-47.0) % MCV (81.0-99.0) fL MCH (27.0-31.0) pg MCHC (33.0-37.0) g/dL RDW (11.5-14.5) % Plt Count (130-400) K/uL MPV (7.2-11.7) fL Neut % (Auto) (50.0-75.0) % Lymph % (Auto) (20.0-40.0) % Benzie % (Auto) (0.0-10.0) % Eos % (Auto) (0.0-4.0) % Baso % (Auto) (0.0-2.0) % Neut # (1.8-7.0) K/uL Lymph # (1.0-4.3) K/uL Benzie # (0.0-0.8) K/uL Eos # (0.0-0.7) K/uL Baso # (0.0-0.2) K/uL Neutrophils % (Manual) 86 H (50-75) % Band Neutrophils % 7 H (0-2) % Lymphocytes % (Manual) 3 L (20-40) % Monocytes % (Manual) 4 (0-10) % Platelet Estimate Normal (NORMAL) Large Platelets Present Hypochromasia (manual) Slight Puncture Site pCO2 (35-45) mm/Hg pO2 (80-100) mm/Hg HCO3 (21-28) mmol/L ABG pH (7.35-7.45) ABG Total CO2 (22-28) mmol/L ABG O2 Saturation (95-98) % ABG Base Excess (-2.0-3.0) mmol/L ABG Hemoglobin (11.7-17.4) g/dL ABG Carboxyhemoglobin (0.5-1.5) % POC ABG HHb (Measured) (0.0-5.0) % ABG Methemoglobin (0.0-3.0) % Fish Test A-a O2 Difference mm/Hg Respiratory Index Hgb O2 Saturation (95.0-98.0) % Mechanical Rate FiO2 % Tidal Volume PEEP Sodium (132-148) mmol/L Potassium (3.6-5.2) mmol/L Chloride (98-107) mmol/L Carbon Dioxide (22-30) mmol/L Anion Gap (10-20) BUN (7-17) mg/dL Creatinine (0.7-1.2) MG/DL Est GFR ( Amer) Est GFR (Non-Af Amer) POC Glucose (mg/dL) 142 H 116 H (65-110) mg/dL Random Glucose (65-105) mg/dL Calcium (8.6-10.4) mg/dl Phosphorus (2.5-4.5) mg/dL Magnesium (1.6-2.3) mg/dL Total Bilirubin (0.2-1.3) mg/dL AST (14-36) U/L ALT (9-52) U/L Alkaline Phosphatase (38-126) U/L Total Protein (6.3-8.3) g/dL Albumin (3.5-5.0) g/dL Globulin (2.2-3.9) gm/dL Albumin/Globulin Ratio (1.0-2.1) Laboratory Results - last 24 hr 10/09/16 10/09/16 10/09/16 06:08 11:31 18:04 WBC RBC Hgb Hct MCV MCH MCHC RDW Plt Count MPV Neut % (Auto) Lymph % (Auto) Benzie % (Auto) Eos % (Auto) Baso % (Auto) Neut # Lymph # Benzie # Eos # Baso # Neutrophils % (Manual) 86 H Band Neutrophils % 7 H Lymphocytes % (Manual) 3 L Monocytes % (Manual) 4 Platelet Estimate Normal Large Platelets Present Hypochromasia (manual) Slight Puncture Site pCO2 pO2 HCO3 ABG pH ABG Total CO2 ABG O2 Saturation ABG Base Excess ABG Hemoglobin ABG Carboxyhemoglobin POC ABG HHb (Measured) ABG Methemoglobin Fish Test A-a O2 Difference Respiratory Index Hgb O2 Saturation Mechanical Rate FiO2 Tidal Volume PEEP Sodium Potassium Chloride Carbon Dioxide Anion Gap BUN Creatinine Est GFR ( Amer) Est GFR (Non-Af Amer) POC Glucose (mg/dL) 116 H 142 H Random Glucose Calcium Phosphorus Magnesium Total Bilirubin AST ALT Alkaline Phosphatase Total Protein Albumin Globulin Albumin/Globulin Ratio 10/09/16 10/10/16 10/10/16 23:51 05:16 06:34 WBC 12.4 H RBC 2.92 L Hgb 9.0 L Hct 26.9 L MCV 92.2 MCH 30.8 MCHC 33.4 RDW 14.6 H Plt Count 129 L MPV 10.2 Neut % (Auto) 87.3 H Lymph % (Auto) 7.4 L Benzie % (Auto) 5.2 Eos % (Auto) 0.0 Baso % (Auto) 0.1 Neut # 10.8 H Lymph # 0.9 L Benzie # 0.6 Eos # 0.0 Baso # 0.0 Neutrophils % (Manual) Band Neutrophils % Lymphocytes % (Manual) Monocytes % (Manual) Platelet Estimate Large Platelets Hypochromasia (manual) Puncture Site Rr pCO2 48 H pO2 147 H HCO3 29.5 H ABG pH 7.42 ABG Total CO2 32.6 H ABG O2 Saturation 99.6 H ABG Base Excess 5.9 H ABG Hemoglobin 9.0 L ABG Carboxyhemoglobin 1.3 POC ABG HHb (Measured) 0.4 ABG Methemoglobin 1.2 Fish Test Pos A-a O2 Difference 292.0 Respiratory Index 2.0 Hgb O2 Saturation 97.0 Mechanical Rate 16 FiO2 70.0 Tidal Volume 400 PEEP 5 Sodium 146 Potassium 3.3 L Chloride 105 Carbon Dioxide 32 H Anion Gap 12 BUN 31 H Creatinine 1.3 H Est GFR ( Amer) 47 Est GFR (Non-Af Amer) 39 POC Glucose (mg/dL) 107 154 H Random Glucose 138 H Calcium 7.6 L Phosphorus 3.1 Magnesium 1.6 Total Bilirubin 0.4 AST 24 ALT 48 Alkaline Phosphatase 43 Total Protein 3.9 L Albumin 1.9 L Globulin 2.0 L Albumin/Globulin Ratio 1.0 Fingerstick Blood Sugar Results: 154 Review of Systems - Review of Systems Review of Systems: as per subjective Assessment/Plan - Assessment and Plan (Free Text) Assessment: 86-year-old female with PMHx significant for COPD hypertension and CAD, initially presented to ICU with acute respiratory failure and hypercarbic encephalopathy. Patient had episode of significant epistaxis over the weekend for which nasal packing was placed. Patient desaturated 10/08/16 in mild distress prompting re-intubation. Patient with large left sided pleural effusion with priors plans to undergo thoracentesis however effusion stable and not as pronounced as day prior. Will monitor. Plan: Neuro: Re-intubated and sedated 10/08/16 Could not comply with ROS at this time 09/23/16 CT Head- Generalized atrophy. Nonspecific white matter changes. Cardiovascular: Better rate control noted HTN Diltiazem IV switched to OGT QID Plavix 75mg PO daily- held due to bleed Lisinopril 20mg NG BID daily Aspirin 81mg po daily- held due to bleed Rouvastatin 10mg po HS Pulmonary: Continue ventilatory support, follow up ABG and reduce FiO2 as tolerated Patient extubated 8:50AM 10/02/16; however re-intubated 10/08/16 due to desaturation into the 80s. Solumedrol tapered down- 20mg IV daily Budesonide 0.5mg INH Q12 Imagin10/10/16- improved left sided effusion- refer to full report 10/09/[address]- increasing pleural effusions let greater than right with associated compressive atelectasis and pneumonia; nodule noted as prev mentioned - Will require thoracentesis 10/09/16 CXR- Lines and tubes in stable position. Persistent near complete opacification of the left susie thorax with moderate to large left pleural effusion. Diffuse increased interstitial lung markings in the right lung with some relative consolidation in the medial right infrahilar region. 10/08/16 CXR- ET tube 4 cm above vicente; moderate left pleural effusion; underlying atelectasis/pneumonia cannot be excluded 10/06/[address]/Pelvis- 6 mm right middle lobe pulmonary nodule- moderate bilateral pleural effusions and associated compressive consolidations 10/02/16 CXR- Possible small left pleural effusion. No infiltrate. 10/01/16 CXR- No infiltrate. Lines and tubes unchanged. 09/30/16 CXR- No active pulmonary disease. Stable position of tubes. 09/29/16 CXR- Interval improvement in the right lung since the previous exam. 09/28/16 CXR- Interval worsening of heterogeneous opacities at the right lower lung since the previous exam. Appropriate position of the ETT and NG tube. AB10/10/16 pH 7.42, PCO2 48, PO2 147, HCO3 29.5 10/09/16 pH 7.46, PCO2 47, PO2 147, HCO3 31.7 10/08/16 pH 7.34, pCO2 60, PO2 159, HCO3 28.9 ( improved) 10/07/16 pH 7.3, CO2 74, O2 40, HCO2 30.4 GI: Pepcid 20 mg IV daily GI may consider Amitiza if necc. Feeds can be restarted at 30 mls/hr under obs. - F/U Abdominal distension- CT Abdomen 10/06/16- Cholelithiasis, anasarca, unremarkable unenhanced appearance of liver, pancreas and spleen. Stomach nondistended and bowel loops WNL w/o evidence of intestinal obstruction- moderate diffuse distension of the colon GI Consult- Dr. Ayala- Considerations for CT abdomen- See aforementioned; on Flagyl 500 mg PO TID; F/U C diff studies Gen Surg Consult- Dr. Jimenez- -no surgical intervention at this time- sign off Lactulose 20mg po HS DC- Ammonia stable 10/01/16 Abd XR- Mild dilatation of the transverse and ascending colon. No evidence of small bowel obstruction. No masses or abnormal intra-abdominal calcifications. Nasogastric tube tip in left upper quadrant of abdomen. No definite free intraperitoneal air. 09/29/16 CT ABd/Pelv- 1. Cholelithiasis without CT evidence for acute cholecystitis. 2. Colonic distention with air-fluid levels which may represent ileus or pseudo obstruction, no definite evidence of mass or colitis. 3. Mild sigmoid diverticulosis without CT evidence for acute diverticulitis. 4. Several large simple cysts in the left kidney. Nonvisualization of the right kidney. 5. Mild ascites and moderate bilateral pleural effusions. 09/29/16 Abd XR- Moderately dilated bowel loops at the mid to upper abdomen right more than left. If clinically warranted further assessment by CT is suggested. Purred diet with thin liquids s/p passing of swallow eval Hematology: nasal packing removed- epistaxis resolved WBC 12.4- decreasing Hgb/Hct stable : 9.6/29.3- Monitor Endocrine: Maintain euglycemia HbA1c- 5.9 Insulin Sliding Scale protocol Renal: Initial KAYLEN improving. BUN/Cr: 31/1.3 Hypokalemia- repleted Hypernatremia- resolved ID: U/A negative, UC negative Blood Cx negative DC Abx 10/03/16 : Perez in place MSK: None Palliative Care: Palliative Care Consult Placed- F/U Prophylaxis- Pepcid 20mg po daily Lovenox 40mg sc HELD due to epistaxis event, SCDs in place Ensure Enlive - three times a day <Ariel Vigil - Last Filed: 10/11/16 08:33> CCU Objective - Vital Signs / Intake & Output Vital Signs (Last 4 hours): Vital Signs Pulse Resp BP Pulse Ox 10/11/16 07:01 70 16 83/47 L 10/11/16 07:00 71 16 100 10/11/16 06:55 71 16 97/55 L 100 10/11/16 06:30 71 16 100 10/11/16 06:01 80 17 97/55 L 100 10/11/16 06:00 72 16 100 10/11/16 05:30 74 16 100 10/11/16 05:01 74 16 92/46 L 100 10/11/16 05:00 74 16 100 Intake and Output (Last 8hrs): Intake & Output 10/10/16 10/11/16 10/11/16 22:59 06:59 14:59 Intake Total 1075.0 1013.0 119.7 Output Total 260 290 30 Balance 815.0 723.0 89.7 Weight 169 lb 12.095 oz Intake: Intake, IV Amount 685.0 773.0 89.7 Right Proximal Port 100.0 111.0 14.7 Subclavian Right Distal Port 585 662 75 Subclavian Tube Feeding 240 240 30 Other 150 Output: Urine 260 290 30 Urine, Voided 260 290 30 Other: # Bowel Movements 1 - Medications Active Medications: Active Medications Generic Name Dose Route Start Last Admin Trade Name Addyq PRN Reason Stop Dose Admin Albuterol/Ipratropium 3 ml 10/08/16 20:00 10/11/16 07:34 Duoneb 3 Mg/0.5 Mg (3 Ml) Ud INH 3 ml RQ4 [facility] Administration Aspirin 81 mg 09/24/16 18:30 10/05/16 09:14 Aspirin Chewable PO 81 mg DAILY [facility] Administration Budesonide 0.5 mg 10/02/16 20:00 10/11/16 07:35 Pulmicort Respules INH 0.5 mg RQ12 [facility] Administration Clopidogrel Bisulfate 75 mg 09/26/16 10:00 10/05/16 09:14 Plavix PO 75 mg DAILY [facility] Administration Diltiazem HCl 60 mg 10/10/16 14:00 10/10/16 21:25 Cardizem GT 60 mg QID [facility] Administration Enoxaparin Sodium 40 mg 09/26/16 13:00 10/05/16 09:14 Lovenox SC 40 mg DAILY [facility] Administration Famotidine 20 mg 10/08/16 10:00 10/10/16 10:21 Pepcid IVP 20 mg DAILY [facility] Administration Doxycycline Hyclate 100 mg/ 100 mls @ 100 mls/hr 10/07/16 05:00 10/11/16 05:09 Sodium Chloride IVPB 100 mls/hr Q12H [facility] Administration Metronidazole 100 mls @ 100 mls/hr 10/07/16 22:00 10/11/16 06:20 Flagyl IVPB 100 mls/hr Q8 [facility] Administration Propofol 100 mls @ 2.097 mls/hr 10/08/16 12:30 10/11/16 07:32 Diprivan IV 14.7 mls/hr .Q24H PRN Administration TITRATE PER MD ORDER Protocol 5 MCG/KG/MIN Piperacillin Sod/Tazobactam Sod 50 mls @ 100 mls/hr 10/09/16 11:00 10/11/16 03: 09 Zosyn 2.25 Gm Iv Premix IVPB 100 mls/hr Q8H [facility] Administration Potassium Chloride 100 mls @ 50 mls/hr 10/11/16 07:15 Potassium Chloride 20 Meq/100 Ml IVPB 10/11/16 11:14 Q2H [facility] Magnesium Sulfate/Dextrose 100 mls @ 100 mls/hr 10/11/16 08:00 Magnesium Sulfate 1 Gm/100 Ml D5w IVPB 10/11/16 08:59 ONCE ONE Insulin Human Regular 0 unit 10/09/16 00:01 10/11/16 06:31 Novolin R SC Not Given Q6H [facility] Protocol Lisinopril 20 mg 10/05/16 18:00 10/10/16 17:18 Zestril NG 20 mg BID [facility] Administration Methylprednisolone 20 mg 10/07/16 10:00 10/10/16 10:21 Solu-Medrol IV 20 mg DAILY [facility] Administration Polyethylene Glycol 17 gm 10/06/16 10:00 10/10/16 10:17 Miralax PO Not Given DAILY [facility] Rosuvastatin Calcium 10 mg 09/23/16 22:00 10/10/16 21:25 Crestor PO 10 mg HS [facility] Administration - Patient Studies Lab Studies: Lab Studies 10/11/16 10/11/16 10/11/16 Range/Units 06:32 06:28 05:09 WBC 11.9 H (4.8-10.8) K/uL RBC 2.91 L (3.80-5.20) Mil/uL Hgb 8.5 L (11.0-16.0) g/dL Hct 26.8 L (34.0-47.0) % MCV 92.1 (81.0-99.0) fL MCH 29.1 (27.0-31.0) pg MCHC 31.5 L (33.0-37.0) g/dL RDW 14.7 H (11.5-14.5) % Plt Count 117 L (130-400) K/uL MPV 10.5 (7.2-11.7) fL Neut % (Auto) 86.9 H (50.0-75.0) % Lymph % (Auto) 7.0 L (20.0-40.0) % Benzie % (Auto) 5.8 (0.0-10.0) % Eos % (Auto) 0.1 (0.0-4.0) % Baso % (Auto) 0.2 (0.0-2.0) % Neut # 10.3 H (1.8-7.0) K/uL Lymph # 0.8 L (1.0-4.3) K/uL Benzie # 0.7 (0.0-0.8) K/uL Eos # 0.0 (0.0-0.7) K/uL Baso # 0.0 (0.0-0.2) K/uL Neutrophils % (Manual) (50-75) % Band Neutrophils % (0-2) % Lymphocytes % (Manual) (20-40) % Monocytes % (Manual) (0-10) % Platelet Estimate (NORMAL) RBC Morphology Puncture Site Rrad pCO2 48 H (35-45) mm/Hg pO2 105 H (80-100) mm/Hg HCO3 31.5 H (21-28) mmol/L ABG pH 7.45 (7.35-7.45) ABG Total CO2 34.9 H (22-28) mmol/L ABG O2 Saturation 98.8 H (95-98) % ABG Base Excess 8.4 H (-2.0-3.0) mmol/L ABG Hemoglobin 8.9 L (11.7-17.4) g/dL ABG Carboxyhemoglobin 1.3 (0.5-1.5) % POC ABG HHb (Measured) 1.2 (0.0-5.0) % ABG Methemoglobin 1.6 (0.0-3.0) % Fish Test Pos A-a O2 Difference 263.0 mm/Hg Respiratory Index 2.5 Hgb O2 Saturation 95.9 (95.0-98.0) % Mechanical Rate 16 FiO2 60.0 % Tidal Volume 400 PEEP 5 Sodium 145 (132-148) mmol/L Potassium 3.3 L (3.6-5.2) mmol/L Chloride 105 (98-107) mmol/L Carbon Dioxide 31 H (22-30) mmol/L Anion Gap 12 (10-20) BUN 31 H (7-17) mg/dL Creatinine 1.0 (0.7-1.2) MG/DL Est GFR ( Amer) > 60 Est GFR (Non-Af Amer) 53 POC Glucose (mg/dL) 134 H (65-110) mg/dL Random Glucose 124 H (65-105) mg/dL Calcium 7.2 L (8.6-10.4) mg/dl Phosphorus 2.7 (2.5-4.5) mg/dL Magnesium 1.5 L (1.6-2.3) mg/dL Total Bilirubin 0.5 (0.2-1.3) mg/dL AST 19 (14-36) U/L ALT 41 (9-52) U/L Alkaline Phosphatase 43 (38-126) U/L Total Protein 3.8 L (6.3-8.3) g/dL Albumin 2.0 L (3.5-5.0) g/dL Globulin 1.8 L (2.2-3.9) gm/dL Albumin/Globulin Ratio 1.1 (1.0-2.1) C. difficile Ag & Toxin (NEGATIVE) 10/11/16 10/10/16 10/10/16 Range/Units 00:32 Unknown 17:48 WBC (4.8-10.8) K/uL RBC (3.80-5.20) Mil/uL Hgb (11.0-16.0) g/dL Hct (34.0-47.0) % MCV (81.0-99.0) fL MCH (27.0-31.0) pg MCHC (33.0-37.0) g/dL RDW (11.5-14.5) % Plt Count (130-400) K/uL MPV (7.2-11.7) fL Neut % (Auto) (50.0-75.0) % Lymph % (Auto) (20.0-40.0) % Benzie % (Auto) (0.0-10.0) % Eos % (Auto) (0.0-4.0) % Baso % (Auto) (0.0-2.0) % Neut # (1.8-7.0) K/uL Lymph # (1.0-4.3) K/uL Benzie # (0.0-0.8) K/uL Eos # (0.0-0.7) K/uL Baso # (0.0-0.2) K/uL Neutrophils % (Manual) (50-75) % Band Neutrophils % (0-2) % Lymphocytes % (Manual) (20-40) % Monocytes % (Manual) (0-10) % Platelet Estimate (NORMAL) RBC Morphology Puncture Site pCO2 (35-45) mm/Hg pO2 (80-100) mm/Hg HCO3 (21-28) mmol/L ABG pH (7.35-7.45) ABG Total CO2 (22-28) mmol/L ABG O2 Saturation (95-98) % ABG Base Excess (-2.0-3.0) mmol/L ABG Hemoglobin (11.7-17.4) g/dL ABG Carboxyhemoglobin (0.5-1.5) % POC ABG HHb (Measured) (0.0-5.0) % ABG Methemoglobin (0.0-3.0) % Fish Test A-a O2 Difference mm/Hg Respiratory Index Hgb O2 Saturation (95.0-98.0) % Mechanical Rate FiO2 % Tidal Volume PEEP Sodium (132-148) mmol/L Potassium (3.6-5.2) mmol/L Chloride (98-107) mmol/L Carbon Dioxide (22-30) mmol/L Anion Gap (10-20) BUN (7-17) mg/dL Creatinine (0.7-1.2) MG/DL Est GFR ( Amer) Est GFR (Non-Af Amer) POC Glucose (mg/dL) 157 H 166 H (65-110) mg/dL Random Glucose (65-105) mg/dL Calcium (8.6-10.4) mg/dl Phosphorus (2.5-4.5) mg/dL Magnesium (1.6-2.3) mg/dL Total Bilirubin (0.2-1.3) mg/dL AST (14-36) U/L ALT (9-52) U/L Alkaline Phosphatase (38-126) U/L Total Protein (6.3-8.3) g/dL Albumin (3.5-5.0) g/dL Globulin (2.2-3.9) gm/dL Albumin/Globulin Ratio (1.0-2.1) C. difficile Ag & Toxin Negative (NEGATIVE) 10/10/16 10/10/16 Range/Units 12:08 06:34 WBC (4.8-10.8) K/uL RBC (3.80-5.20) Mil/uL Hgb (11.0-16.0) g/dL Hct (34.0-47.0) % MCV (81.0-99.0) fL MCH (27.0-31.0) pg MCHC (33.0-37.0) g/dL RDW (11.5-14.5) % Plt Count (130-400) K/uL MPV (7.2-11.7) fL Neut % (Auto) (50.0-75.0) % Lymph % (Auto) (20.0-40.0) % Benzie % (Auto) (0.0-10.0) % Eos % (Auto) (0.0-4.0) % Baso % (Auto) (0.0-2.0) % Neut # (1.8-7.0) K/uL Lymph # (1.0-4.3) K/uL Benzie # (0.0-0.8) K/uL Eos # (0.0-0.7) K/uL Baso # (0.0-0.2) K/uL Neutrophils % (Manual) 80 H (50-75) % Band Neutrophils % 3 H (0-2) % Lymphocytes % (Manual) 15 L (20-40) % Monocytes % (Manual) 2 (0-10) % Platelet Estimate Normal (NORMAL) RBC Morphology Normal Puncture Site pCO2 (35-45) mm/Hg pO2 (80-100) mm/Hg HCO3 (21-28) mmol/L ABG pH (7.35-7.45) ABG Total CO2 (22-28) mmol/L ABG O2 Saturation (95-98) % ABG Base Excess (-2.0-3.0) mmol/L ABG Hemoglobin (11.7-17.4) g/dL ABG Carboxyhemoglobin (0.5-1.5) % POC ABG HHb (Measured) (0.0-5.0) % ABG Methemoglobin (0.0-3.0) % Fish Test A-a O2 Difference mm/Hg Respiratory Index Hgb O2 Saturation (95.0-98.0) % Mechanical Rate FiO2 % Tidal Volume PEEP Sodium (132-148) mmol/L Potassium (3.6-5.2) mmol/L Chloride (98-107) mmol/L Carbon Dioxide (22-30) mmol/L Anion Gap (10-20) BUN (7-17) mg/dL Creatinine (0.7-1.2) MG/DL Est GFR ( Amer) Est GFR (Non-Af Amer) POC Glucose (mg/dL) 142 H (65-110) mg/dL Random Glucose (65-105) mg/dL Calcium (8.6-10.4) mg/dl Phosphorus (2.5-4.5) mg/dL Magnesium (1.6-2.3) mg/dL Total Bilirubin (0.2-1.3) mg/dL AST (14-36) U/L ALT (9-52) U/L Alkaline Phosphatase (38-126) U/L Total Protein (6.3-8.3) g/dL Albumin (3.5-5.0) g/dL Globulin (2.2-3.9) gm/dL Albumin/Globulin Ratio (1.0-2.1) C. difficile Ag & Toxin (NEGATIVE) Laboratory Results - last 24 hr 10/10/16 10/10/16 10/10/16 06:34 12:08 17:48 WBC RBC Hgb Hct MCV MCH MCHC RDW Plt Count MPV Neut % (Auto) Lymph % (Auto) Benzie % (Auto) Eos % (Auto) Baso % (Auto) Neut # Lymph # Benzie # Eos # Baso # Neutrophils % (Manual) 80 H Band Neutrophils % 3 H Lymphocytes % (Manual) 15 L Monocytes % (Manual) 2 Platelet Estimate Normal RBC Morphology Normal Puncture Site pCO2 pO2 HCO3 ABG pH ABG Total CO2 ABG O2 Saturation ABG Base Excess ABG Hemoglobin ABG Carboxyhemoglobin POC ABG HHb (Measured) ABG Methemoglobin Fish Test A-a O2 Difference Respiratory Index Hgb O2 Saturation Mechanical Rate FiO2 Tidal Volume PEEP Sodium Potassium Chloride Carbon Dioxide Anion Gap BUN Creatinine Est GFR ( Amer) Est GFR (Non-Af Amer) POC Glucose (mg/dL) 142 H 166 H Random Glucose Calcium Phosphorus Magnesium Total Bilirubin AST ALT Alkaline Phosphatase Total Protein Albumin Globulin Albumin/Globulin Ratio C. difficile Ag & Toxin 10/10/16 10/11/16 10/11/16 Unknown 00:32 05:09 WBC RBC Hgb Hct MCV MCH MCHC RDW Plt Count MPV Neut % (Auto) Lymph % (Auto) Benzie % (Auto) Eos % (Auto) Baso % (Auto) Neut # Lymph # Benzie # Eos # Baso # Neutrophils % (Manual) Band Neutrophils % Lymphocytes % (Manual) Monocytes % (Manual) Platelet Estimate RBC Morphology Puncture Site Rrad pCO2 48 H pO2 105 H HCO3 31.5 H ABG pH 7.45 ABG Total CO2 34.9 H ABG O2 Saturation 98.8 H ABG Base Excess 8.4 H ABG Hemoglobin 8.9 L ABG Carboxyhemoglobin 1.3 POC ABG HHb (Measured) 1.2 ABG Methemoglobin 1.6 Fish Test Pos A-a O2 Difference 263.0 Respiratory Index 2.5 Hgb O2 Saturation 95.9 Mechanical Rate 16 FiO2 60.0 Tidal Volume 400 PEEP 5 Sodium Potassium Chloride Carbon Dioxide Anion Gap BUN Creatinine Est GFR ( Amer) Est GFR (Non-Af Amer) POC Glucose (mg/dL) 157 H Random Glucose Calcium Phosphorus Magnesium Total Bilirubin AST ALT Alkaline Phosphatase Total Protein Albumin Globulin Albumin/Globulin Ratio C. difficile Ag & Toxin Negative 10/11/16 10/11/16 06:28 06:32 WBC 11.9 H RBC 2.91 L Hgb 8.5 L Hct 26.8 L MCV 92.1 MCH 29.1 MCHC 31.5 L RDW 14.7 H Plt Count 117 L MPV 10.5 Neut % (Auto) 86.9 H Lymph % (Auto) 7.0 L Benzie % (Auto) 5.8 Eos % (Auto) 0.1 Baso % (Auto) 0.2 Neut # 10.3 H Lymph # 0.8 L Benzie # 0.7 Eos # 0.0 Baso # 0.0 Neutrophils % (Manual) Band Neutrophils % Lymphocytes % (Manual) Monocytes % (Manual) Platelet Estimate RBC Morphology Puncture Site pCO2 pO2 HCO3 ABG pH ABG Total CO2 ABG O2 Saturation ABG Base Excess ABG Hemoglobin ABG Carboxyhemoglobin POC ABG HHb (Measured) ABG Methemoglobin Fish Test A-a O2 Difference Respiratory Index Hgb O2 Saturation Mechanical Rate FiO2 Tidal Volume PEEP Sodium 145 Potassium 3.3 L Chloride 105 Carbon Dioxide 31 H Anion Gap 12 BUN 31 H Creatinine 1.0 Est GFR ( Amer) > 60 Est GFR (Non-Af Amer) 53 POC Glucose (mg/dL) 134 H Random Glucose 124 H Calcium 7.2 L Phosphorus 2.7 Magnesium 1.5 L Total Bilirubin 0.5 AST 19 ALT 41 Alkaline Phosphatase 43 Total Protein 3.8 L Albumin 2.0 L Globulin 1.8 L Albumin/Globulin Ratio 1.1 C. difficile Ag & Toxin Attending/Attestation - Attestation I have personally seen and examined this patient.: Yes I have fully participated in the care of the patient.: Yes I have reviewed all pertinent clinical information: Yes Notes (Text): Today: September The Patient was seen and examined at the bedside, Medical records reviewed, all clinical/lab/hemodynamic/radiographic data were reviewed and management issues were discussed and formulated, Events reviewed Pain issues, skin care, head of the bed elevation, glycemic control were addressed. Wean off FIO2, antibiotics Daily SAT/SBT Agree with above treatment plans as transcribed in Dr. Hearn note
[2016-10-10] MEDS ORDERED: Potassium Chloride 20 mEq 100 ML IVPB ONE (08:00)
--- NOTE | 2016-10-10 08:39 | RAD ---
HISTORY: intubated, monitor effusion COMPARISON: 10/09/2016 FINDINGS: LUNGS: The endotracheal and nasogastric tube are in satisfactory position. There is a hazy infiltrate or effusion at the left lung base. PLEURA: No significant pleural effusion identified, no pneumothorax apparent. CARDIOVASCULAR: Normal. OSSEOUS STRUCTURES: No significant abnormalities. VISUALIZED UPPER ABDOMEN: Normal. OTHER FINDINGS: None. IMPRESSION: Hazy infiltrate or effusion at the left lung base
[2016-10-10] MEDS: POLYETHYLENE GLYCOL 3350 17 GM/Dose PACKET PO SCH (10:17)
[2016-10-10] MEDS: MethylPREDNISolone 40 mg Vial IV SCH (10:21)
[2016-10-10 10:29] LABS: NEUTROPHIL 80 % (50-75); TOTAL CELLS COUNTED 100
--- NOTE | 2016-10-10 10:56 | CP.PCM.PN ---
Subjective - Date & Time of Evaluation Date of Evaluation: 10/10/16 Time of Evaluation: 10:00 - Subjective Subjective: F/U abdom distention No report of bleeding, RB, melena, rigor, hematuria, hemoptysis, SZ, tremor Objective - Vital Signs/Intake and Output Vital Signs (last 24 hours): Temp Pulse Resp BP Pulse Ox 98.4 F 73 16 104/46 L 100 10/10/16 08:00 10/10/16 09:30 10/10/16 09:30 10/10/16 09:01 10/10/16 09:30 Intake and Output: 10/10/16 10/10/16 06:59 18:59 Intake Total 1422.0 377.5 Output Total 520 90 Balance 902.0 287.5 - Medications Medications: Current Medications Albuterol/Ipratropium (Duoneb 3 Mg/0.5 Mg (3 Ml) Ud) 3 ml INH RQ4 [facility] Last Admin: 10/10/16 07:39 Dose: 3 ml Aspirin (Aspirin Chewable) 81 mg PO DAILY [facility] Last Admin: 10/05/16 09:14 Dose: 81 mg Budesonide (Pulmicort Respules) 0.5 mg INH RQ12 [facility] Last Admin: 10/10/16 07:39 Dose: 0.5 mg Clopidogrel Bisulfate (Plavix) 75 mg PO DAILY [facility] Last Admin: 10/05/16 09:14 Dose: 75 mg Diltiazem HCl (Cardizem) 5 mg IVP Q6H [facility] Last Admin: 10/10/16 10:22 Dose: 5 mg Enoxaparin Sodium (Lovenox) 40 mg SC DAILY [facility] Last Admin: 10/05/16 09:14 Dose: 40 mg Famotidine (Pepcid) 20 mg IVP DAILY [facility] Last Admin: 10/10/16 10:21 Dose: 20 mg Doxycycline Hyclate 100 mg/ (Sodium Chloride) 100 mls @ 100 mls/hr IVPB Q12H [facility] Last Admin: 10/10/16 04:11 Dose: 100 mls/hr Lactated Ringer's (Lactated Ringer's) 1,000 mls @ 75 mls/hr IV .[id number] [facility] Last Admin: 10/10/16 08:51 Dose: 75 mls/hr Metronidazole (Flagyl) 100 mls @ 100 mls/hr IVPB Q8 [facility] Last Admin: 10/10/16 05:04 Dose: 100 mls/hr Propofol (Diprivan) 100 mls @ 2.097 mls/hr IV .Q24H PRN; Protocol; 5 MCG/KG/MIN PRN Reason: TITRATE PER MD ORDER Last Admin: 10/10/16 02:30 Dose: 12.584 mls/hr Piperacillin Sod/Tazobactam Sod (Zosyn 2.25 Gm Iv Premix) 50 mls @ 100 mls/hr IVPB Q8H [facility] Last Admin: 10/10/16 10:20 Dose: 100 mls/hr Insulin Human Regular (Novolin R) 0 unit SC Q6H [facility] PRN Reason: Protocol Last Admin: 10/10/16 06:29 Dose: 2 unit Lisinopril (Zestril) 20 mg NG BID [facility] Last Admin: 10/10/16 10:21 Dose: 20 mg Methylprednisolone (Solu-Medrol) 20 mg IV DAILY [facility] Last Admin: 10/10/16 10:21 Dose: 20 mg Polyethylene Glycol (Miralax) 17 gm PO DAILY [facility] Last Admin: 10/10/16 10:17 Dose: Not Given Rosuvastatin Calcium (Crestor) 10 mg PO HS [facility] Last Admin: 10/09/16 21:38 Dose: 10 mg - Labs Labs: 10/10/16 06:34 10/10/16 06:34 PT 12.3 SECONDS (9.7-12.2) H 10/06/16 01:34 INR 1.1 10/06/16 01:34 APTT 27 SECONDS (21-34) 10/06/16 01:34 - Respiratory Exam Respiratory Exam: Rhonchi - Cardiovascular Exam Cardiovascular Exam: RRR - GI/Abdominal Exam GI & Abdominal Exam: Distended, Soft, Normal Bowel Sounds. absent: Mass - Extremities Exam Extremities Exam: absent: Calf Tenderness - Neurological Exam Neurological Exam: Awake. absent: Oriented x3 Assessment and Plan (1) Respiratory failure Assessment & Plan: intubated Status: Chronic (2) Abdominal distension Assessment & Plan: Check KUB Status: Acute (3) Acute CT Status: Acute (4) Atrial fibrillation Status: Acute (5) Dysphagia Status: Acute (6) Hypernatremia Status: Acute (7) Leucocytosis Assessment & Plan: WBC decreasing. Status: Acute
--- NOTE | 2016-10-10 11:09 | CP.PCM.PN ---
Objective - Vital Signs/Intake and Output Vital Signs (last 24 hours): Temp Pulse Resp BP Pulse Ox 98.4 F 71 16 88/45 L 100 10/10/16 08:00 10/10/16 11:00 10/10/16 11:00 10/10/16 11:01 10/10/16 10:01 Intake and Output: 10/10/16 10/10/16 06:59 18:59 Intake Total 1422.0 470.0 Output Total 520 110 Balance 902.0 360.0 - Medications Medications: Current Medications Albuterol/Ipratropium (Duoneb 3 Mg/0.5 Mg (3 Ml) Ud) 3 ml INH RQ4 [facility] Last Admin: 10/10/16 07:39 Dose: 3 ml Aspirin (Aspirin Chewable) 81 mg PO DAILY [facility] Last Admin: 10/05/16 09:14 Dose: 81 mg Budesonide (Pulmicort Respules) 0.5 mg INH RQ12 [facility] Last Admin: 10/10/16 07:39 Dose: 0.5 mg Clopidogrel Bisulfate (Plavix) 75 mg PO DAILY [facility] Last Admin: 10/05/16 09:14 Dose: 75 mg Diltiazem HCl (Cardizem) 5 mg IVP Q6H [facility] Last Admin: 10/10/16 10:22 Dose: 5 mg Enoxaparin Sodium (Lovenox) 40 mg SC DAILY [facility] Last Admin: 10/05/16 09:14 Dose: 40 mg Famotidine (Pepcid) 20 mg IVP DAILY [facility] Last Admin: 10/10/16 10:21 Dose: 20 mg Doxycycline Hyclate 100 mg/ (Sodium Chloride) 100 mls @ 100 mls/hr IVPB Q12H [facility] Last Admin: 10/10/16 04:11 Dose: 100 mls/hr Lactated Ringer's (Lactated Ringer's) 1,000 mls @ 75 mls/hr IV .[id number] [facility] Last Admin: 10/10/16 08:51 Dose: 75 mls/hr Metronidazole (Flagyl) 100 mls @ 100 mls/hr IVPB Q8 [facility] Last Admin: 10/10/16 05:04 Dose: 100 mls/hr Propofol (Diprivan) 100 mls @ 2.097 mls/hr IV .Q24H PRN; Protocol; 5 MCG/KG/MIN PRN Reason: TITRATE PER MD ORDER Last Admin: 10/10/16 02:30 Dose: 12.584 mls/hr Piperacillin Sod/Tazobactam Sod (Zosyn 2.25 Gm Iv Premix) 50 mls @ 100 mls/hr IVPB Q8H [facility] Last Admin: 10/10/16 10:20 Dose: 100 mls/hr Insulin Human Regular (Novolin R) 0 unit SC Q6H [facility] PRN Reason: Protocol Last Admin: 10/10/16 06:29 Dose: 2 unit Lisinopril (Zestril) 20 mg NG BID [facility] Last Admin: 10/10/16 10:21 Dose: 20 mg Methylprednisolone (Solu-Medrol) 20 mg IV DAILY [facility] Last Admin: 10/10/16 10:21 Dose: 20 mg Polyethylene Glycol (Miralax) 17 gm PO DAILY [facility] Last Admin: 10/10/16 10:17 Dose: Not Given Rosuvastatin Calcium (Crestor) 10 mg PO HS [facility] Last Admin: 10/09/16 21:38 Dose: 10 mg - Labs Labs: 10/10/16 06:34 10/10/16 06:34 PT 12.3 SECONDS (9.7-12.2) H 10/06/16 01:34 INR 1.1 10/06/16 01:34 APTT 27 SECONDS (21-34) 10/06/16 01:34 Assessment and Plan (1) COPD (chronic obstructive pulmonary disease) Status: Chronic (2) Acute OR Status: Acute (3) Leucocytosis Status: Acute
[2016-10-11] MEDS: (Novolin R) Insulin Human Regular 100 units/ml vial SC SCH ×4 (01:06→18:22)
[2016-10-11] MEDS: Albuterol-Ipratrop 3 mg / 0.5 (3 ml) UD INH SCH ×6 (03:00→23:36)
[2016-10-11] MEDS: Piperacill/Tazo 2.25gm in Dex 50 ML IVPB SCH ×3 (03:09→18:14)
[2016-10-11 05:35] LABS: ABG ALLEN TEST POS; ABG MECHANICAL RATE 16; ARTERIAL BLOOD HGB O2 SAT 95.9 % (95.0-98.0); ATERIAL BLOOD GAS PEEP 5; CARBOXYHEMOGLOBIN 1.3 % (0.5-1.5); DRAW SITE RRAD; HHB 1.2 % (0.0-5.0); METHEMOGLOBIN 1.6 % (0.0-3.0)
[2016-10-11] MEDS: metroNIDAZOLE IV 500 mg/100 ml 100 ML IVPB SCH ×3 (06:20→21:36)
[2016-10-11 06:38] LABS: BASO % 0.2 % (0.0-2.0); EOS % 0.1 % (0.0-4.0); HEMATOCRIT 26.8 % (34.0-47.0); LYMPH # 0.8 K/uL (1.0-4.3); MEAN CELL VOLUME 92.1 fL (81.0-99.0); MEAN CORPUSCULAR HEMOGLOBIN 29.1 pg (27.0-31.0); MEAN CORPUSCULAR HGB CONC 31.5 g/dL (33.0-37.0); MEAN PLATELET VOLUME 10.5 fL (7.2-11.7); MONO # 0.7 K/uL (0.0-0.8); MONO % 5.8 % (0.0-10.0); PLATELET COUNT 117 K/uL (130-400); RED CELL DISTRIBUTION WIDTH 14.7 % (11.5-14.5); WHITE BLOOD COUNT 11.9 K/uL (4.8-10.8)
[2016-10-11 06:51] LABS: CHLORIDE 105 mmol/L (98-107); SODIUM 145 mmol/L (132-148)
[2016-10-11 06:52] LABS: POTASSIUM 3.3 mmol/L (3.6-5.2)
[2016-10-11 06:53] LABS: GFR AFRICAN-AMERICAN > 60
[2016-10-11 06:54] LABS: ALB/GLOB RATIO 1.1 (1.0-2.1); ALKALINE PHOSPHATASE 43 U/L (38-126); ALT/SGPT 41 U/L (9-52); AST/SGOT 19 U/L (14-36); BILIRUBIN,TOTAL 0.5 mg/dL (0.2-1.3); BLOOD UREA NITROGEN 31 mg/dL (7-17); CALCIUM 7.2 mg/dl (8.6-10.4); CARBON DIOXIDE 31 mmol/L (22-30); GLUCOSE,RANDOM 124 mg/dL (65-105); PHOSPHOROUS 2.7 mg/dL (2.5-4.5); TOTAL PROTEIN 3.8 g/dL (6.3-8.3)
[2016-10-11 06:55] LABS: MAGNESIUM 1.5 mg/dL (1.6-2.3)
--- NOTE | 2016-10-11 07:13 | CP.CCUPN ---
<Katarzyna Hearn - Last Filed: 10/11/16 12:09> CCU Subjective - Physician Review Subjective (Free Text): 10/07/16 12:24 Patient was seen and examined in no acute distress. No acute events overnight. Packing remains in place. Patient appears more lethargic today at times as compared to her normal baseline. Patient was extubated 10/02/16 with O2 saturation in high 90s on venti mask. The patient has passed a swallow evaluation and eating though minimally. Per nursing, patient has not had a BM in 5-6 days. The patient did not comply with ROS due to somnolence. 10/08/16 12:48 Pt seen and examined though increasingly lethargic on evaluation and as per nursing. Patient desaturated into the 80's in mild distress prompting the need for intubation. A ROS could not be obtained due to patient's lethargy 10/09/16 14:24 Pt seen and examined in no acute distress. Patient intubated 10/08/16 with TLC placed with no events per nursing. A ROS could not be obtained due to patient's lethargy. 10/10/16 21:06 Pt seen and examined in no acute distress. No events overnight per nursing. An ROS could not be obtained due to patient being intubated and sedated. 10/11/16 07:16 Pt seen and examined in no acute distress. Patient hemodynamically stable at this time. Patient being weaned off FiO2. Feeds held in light of abdominal xray findings suggestive of large ileus. An ROS could not be obtained due to patient being intubated and sedated. Sister present bedside. 10/11/16 12:13 CCU Objective - Vital Signs / Intake & Output Vital Signs (Last 4 hours): Vital Signs Temp Pulse Resp BP Pulse Ox 10/11/16 07:01 70 16 83/47 L 10/11/16 07:00 71 16 100 10/11/16 06:55 71 16 97/55 L 100 10/11/16 06:30 71 16 100 10/11/16 06:01 80 17 97/55 L 100 10/11/16 06:00 72 16 100 10/11/16 05:30 74 16 100 10/11/16 05:01 74 16 92/46 L 100 10/11/16 05:00 74 16 100 10/11/16 04:30 75 16 100 10/11/16 04:01 75 16 81/40 L 10/11/16 04:00 97.8 F 73 16 99 10/11/16 03:30 72 16 100 10/11/16 03:21 72 16 100 Intake and Output (Last 8hrs): Intake & Output 10/10/16 10/11/16 10/11/16 22:59 06:59 14:59 Intake Total 1075.0 1013.0 Output Total 260 290 Balance 815.0 723.0 Intake: Intake, IV Amount 685.0 773.0 Right Proximal Port 100.0 111.0 Subclavian Right Distal Port 585 662 Subclavian Tube Feeding 240 240 Other 150 Output: Urine 260 290 Urine, Voided 260 290 Other: # Bowel Movements 1 - Physical Exam Head: Positive for: Atraumatic, Normocephalic, Other (ET Tube in place) Pupils: Positive for: PERRL Extroacular Muscles: Positive for: EOMI Conjunctiva: Positive for: Injected Mouth: Positive for: Dry Neck: Positive for: Normal Range of Motion Respiratory/Chest: Positive for: Clear to Auscultation, Good Air Exchange, Rales. Negative for: Respiratory Distress, Accessory Muscle Use Cardiovascular: Positive for: Normal S1, S2, Irregular Rhythm. Negative for: Regular Rate and Rhythm, Murmurs Abdomen: Positive for: Distention, Normal Bowel Sounds. Negative for: Peritoneal Signs, Rebound Genitourinary/Pelvic Exam: Positive for: Other (perez in place) Upper Extremity: Positive for: Normal Inspection. Negative for: Cyanosis, Edema Lower Extremity: Positive for: Normal Inspection. Negative for: Edema, CALF TENDERNESS Neurological: Positive for: CN II-XII Intact Skin: Positive for: Warm, Dry Psychiatric: Positive for: Alert - Medications Active Medications: Active Medications Generic Name Dose Route Start Last Admin Trade Name Freq PRN Reason Stop Dose Admin Albuterol/Ipratropium 3 ml 10/08/16 20:00 10/11/16 03:00 Duoneb 3 Mg/0.5 Mg (3 Ml) Ud INH 3 ml RQ4 [facility] Administration Aspirin 81 mg 09/24/16 18:30 10/05/16 09:14 Aspirin Chewable PO 81 mg DAILY [facility] Administration Budesonide 0.5 mg 10/02/16 20:00 10/10/16 19:27 Pulmicort Respules INH 0.5 mg RQ12 [facility] Administration Clopidogrel Bisulfate 75 mg 09/26/16 10:00 10/05/16 09:14 Plavix PO 75 mg DAILY [facility] Administration Diltiazem HCl 60 mg 10/10/16 14:00 10/10/16 21:25 Cardizem GT 60 mg QID [facility] Administration Enoxaparin Sodium 40 mg 09/26/16 13:00 10/05/16 09:14 Lovenox SC 40 mg DAILY [facility] Administration Famotidine 20 mg 10/08/16 10:00 10/10/16 10:21 Pepcid IVP 20 mg DAILY [facility] Administration Doxycycline Hyclate 100 mg/ 100 mls @ 100 mls/hr 10/07/16 05:00 10/11/16 05:09 Sodium Chloride IVPB 100 mls/hr Q12H [facility] Administration Metronidazole 100 mls @ 100 mls/hr 10/07/16 22:00 10/11/16 06:20 Flagyl IVPB 100 mls/hr Q8 [facility] Administration Propofol 100 mls @ 2.097 mls/hr 10/08/16 12:30 10/11/16 01:59 Diprivan IV 14.7 mls/hr .Q24H PRN Administration TITRATE PER MD ORDER Protocol 5 MCG/KG/MIN Piperacillin Sod/Tazobactam Sod 50 mls @ 100 mls/hr 10/09/16 11:00 10/11/16 03: 09 Zosyn 2.25 Gm Iv Premix IVPB 100 mls/hr Q8H [facility] Administration Insulin Human Regular 0 unit 10/09/16 00:01 10/11/16 06:31 Novolin R SC Not Given Q6H [facility] Protocol Lisinopril 20 mg 10/05/16 18:00 10/10/16 17:18 Zestril NG 20 mg BID [facility] Administration Methylprednisolone 20 mg 10/07/16 10:00 10/10/16 10:21 Solu-Medrol IV 20 mg DAILY [facility] Administration Polyethylene Glycol 17 gm 10/06/16 10:00 10/10/16 10:17 Miralax PO Not Given DAILY [facility] Rosuvastatin Calcium 10 mg 09/23/16 22:00 10/10/16 21:25 Crestor PO 10 mg HS [facility] Administration - Patient Studies Lab Studies: Lab Studies 10/11/16 10/11/16 10/11/16 Range/Units 06:32 06:28 05:09 WBC 11.9 H (4.8-10.8) K/uL RBC 2.91 L (3.80-5.20) Mil/uL Hgb 8.5 L (11.0-16.0) g/dL Hct 26.8 L (34.0-47.0) % MCV 92.1 (81.0-99.0) fL MCH 29.1 (27.0-31.0) pg MCHC 31.5 L (33.0-37.0) g/dL RDW 14.7 H (11.5-14.5) % Plt Count 117 L (130-400) K/uL MPV 10.5 (7.2-11.7) fL Neut % (Auto) 86.9 H (50.0-75.0) % Lymph % (Auto) 7.0 L (20.0-40.0) % [place] % (Auto) 5.8 (0.0-10.0) % Eos % (Auto) 0.1 (0.0-4.0) % Baso % (Auto) 0.2 (0.0-2.0) % Neut # 10.3 H (1.8-7.0) K/uL Lymph # 0.8 L (1.0-4.3) K/uL [place] # 0.7 (0.0-0.8) K/uL Eos # 0.0 (0.0-0.7) K/uL Baso # 0.0 (0.0-0.2) K/uL Neutrophils % (Manual) (50-75) % Band Neutrophils % (0-2) % Lymphocytes % (Manual) (20-40) % Monocytes % (Manual) (0-10) % Platelet Estimate (NORMAL) RBC Morphology Puncture Site Rrad pCO2 48 H (35-45) mm/Hg pO2 105 H (80-100) mm/Hg HCO3 31.5 H (21-28) mmol/L ABG pH 7.45 (7.35-7.45) ABG Total CO2 34.9 H (22-28) mmol/L ABG O2 Saturation 98.8 H (95-98) % ABG Base Excess 8.4 H (-2.0-3.0) mmol/L ABG Hemoglobin 8.9 L (11.7-17.4) g/dL ABG Carboxyhemoglobin 1.3 (0.5-1.5) % POC ABG HHb (Measured) 1.2 (0.0-5.0) % ABG Methemoglobin 1.6 (0.0-3.0) % Fish Test Pos A-a O2 Difference 263.0 mm/Hg Respiratory Index 2.5 Hgb O2 Saturation 95.9 (95.0-98.0) % Mechanical Rate 16 FiO2 60.0 % Tidal Volume 400 PEEP 5 Sodium 145 (132-148) mmol/L Potassium 3.3 L (3.6-5.2) mmol/L Chloride 105 (98-107) mmol/L Carbon Dioxide 31 H (22-30) mmol/L Anion Gap 12 (10-20) BUN 31 H (7-17) mg/dL Creatinine 1.0 (0.7-1.2) MG/DL Est GFR ( Amer) > 60 Est GFR (Non-Af Amer) 53 POC Glucose (mg/dL) 134 H (65-110) mg/dL Random Glucose 124 H (65-105) mg/dL Calcium 7.2 L (8.6-10.4) mg/dl Phosphorus 2.7 (2.5-4.5) mg/dL Magnesium 1.5 L (1.6-2.3) mg/dL Total Bilirubin 0.5 (0.2-1.3) mg/dL AST 19 (14-36) U/L ALT 41 (9-52) U/L Alkaline Phosphatase 43 (38-126) U/L Total Protein 3.8 L (6.3-8.3) g/dL Albumin 2.0 L (3.5-5.0) g/dL Globulin 1.8 L (2.2-3.9) gm/dL Albumin/Globulin Ratio 1.1 (1.0-2.1) C. difficile Ag & Toxin (NEGATIVE) 10/11/16 10/10/16 10/10/16 Range/Units 00:32 Unknown 17:48 WBC (4.8-10.8) K/uL RBC (3.80-5.20) Mil/uL Hgb (11.0-16.0) g/dL Hct (34.0-47.0) % MCV (81.0-99.0) fL MCH (27.0-31.0) pg MCHC (33.0-37.0) g/dL RDW (11.5-14.5) % Plt Count (130-400) K/uL MPV (7.2-11.7) fL Neut % (Auto) (50.0-75.0) % Lymph % (Auto) (20.0-40.0) % [place] % (Auto) (0.0-10.0) % Eos % (Auto) (0.0-4.0) % Baso % (Auto) (0.0-2.0) % Neut # (1.8-7.0) K/uL Lymph # (1.0-4.3) K/uL [place] # (0.0-0.8) K/uL Eos # (0.0-0.7) K/uL Baso # (0.0-0.2) K/uL Neutrophils % (Manual) (50-75) % Band Neutrophils % (0-2) % Lymphocytes % (Manual) (20-40) % Monocytes % (Manual) (0-10) % Platelet Estimate (NORMAL) RBC Morphology Puncture Site pCO2 (35-45) mm/Hg pO2 (80-100) mm/Hg HCO3 (21-28) mmol/L ABG pH (7.35-7.45) ABG Total CO2 (22-28) mmol/L ABG O2 Saturation (95-98) % ABG Base Excess (-2.0-3.0) mmol/L ABG Hemoglobin (11.7-17.4) g/dL ABG Carboxyhemoglobin (0.5-1.5) % POC ABG HHb (Measured) (0.0-5.0) % ABG Methemoglobin (0.0-3.0) % Fish Test A-a O2 Difference mm/Hg Respiratory Index Hgb O2 Saturation (95.0-98.0) % Mechanical Rate FiO2 % Tidal Volume PEEP Sodium (132-148) mmol/L Potassium (3.6-5.2) mmol/L Chloride (98-107) mmol/L Carbon Dioxide (22-30) mmol/L Anion Gap (10-20) BUN (7-17) mg/dL Creatinine (0.7-1.2) MG/DL Est GFR ( Amer) Est GFR (Non-Af Amer) POC Glucose (mg/dL) 157 H 166 H (65-110) mg/dL Random Glucose (65-105) mg/dL Calcium (8.6-10.4) mg/dl Phosphorus (2.5-4.5) mg/dL Magnesium (1.6-2.3) mg/dL Total Bilirubin (0.2-1.3) mg/dL AST (14-36) U/L ALT (9-52) U/L Alkaline Phosphatase (38-126) U/L Total Protein (6.3-8.3) g/dL Albumin (3.5-5.0) g/dL Globulin (2.2-3.9) gm/dL Albumin/Globulin Ratio (1.0-2.1) C. difficile Ag & Toxin Negative (NEGATIVE) 10/10/16 10/10/16 Range/Units 12:08 06:34 WBC (4.8-10.8) K/uL RBC (3.80-5.20) Mil/uL Hgb (11.0-16.0) g/dL Hct (34.0-47.0) % MCV (81.0-99.0) fL MCH (27.0-31.0) pg MCHC (33.0-37.0) g/dL RDW (11.5-14.5) % Plt Count (130-400) K/uL MPV (7.2-11.7) fL Neut % (Auto) (50.0-75.0) % Lymph % (Auto) (20.0-40.0) % [place] % (Auto) (0.0-10.0) % Eos % (Auto) (0.0-4.0) % Baso % (Auto) (0.0-2.0) % Neut # (1.8-7.0) K/uL Lymph # (1.0-4.3) K/uL [place] # (0.0-0.8) K/uL Eos # (0.0-0.7) K/uL Baso # (0.0-0.2) K/uL Neutrophils % (Manual) 80 H (50-75) % Band Neutrophils % 3 H (0-2) % Lymphocytes % (Manual) 15 L (20-40) % Monocytes % (Manual) 2 (0-10) % Platelet Estimate Normal (NORMAL) RBC Morphology Normal Puncture Site pCO2 (35-45) mm/Hg pO2 (80-100) mm/Hg HCO3 (21-28) mmol/L ABG pH (7.35-7.45) ABG Total CO2 (22-28) mmol/L ABG O2 Saturation (95-98) % ABG Base Excess (-2.0-3.0) mmol/L ABG Hemoglobin (11.7-17.4) g/dL ABG Carboxyhemoglobin (0.5-1.5) % POC ABG HHb (Measured) (0.0-5.0) % ABG Methemoglobin (0.0-3.0) % Fish Test A-a O2 Difference mm/Hg Respiratory Index Hgb O2 Saturation (95.0-98.0) % Mechanical Rate FiO2 % Tidal Volume PEEP Sodium (132-148) mmol/L Potassium (3.6-5.2) mmol/L Chloride (98-107) mmol/L Carbon Dioxide (22-30) mmol/L Anion Gap (10-20) BUN (7-17) mg/dL Creatinine (0.7-1.2) MG/DL Est GFR ( Amer) Est GFR (Non-Af Amer) POC Glucose (mg/dL) 142 H (65-110) mg/dL Random Glucose (65-105) mg/dL Calcium (8.6-10.4) mg/dl Phosphorus (2.5-4.5) mg/dL Magnesium (1.6-2.3) mg/dL Total Bilirubin (0.2-1.3) mg/dL AST (14-36) U/L ALT (9-52) U/L Alkaline Phosphatase (38-126) U/L Total Protein (6.3-8.3) g/dL Albumin (3.5-5.0) g/dL Globulin (2.2-3.9) gm/dL Albumin/Globulin Ratio (1.0-2.1) C. difficile Ag & Toxin (NEGATIVE) Laboratory Results - last 24 hr 10/10/16 10/10/16 10/10/16 06:34 12:08 17:48 WBC RBC Hgb Hct MCV MCH MCHC RDW Plt Count MPV Neut % (Auto) Lymph % (Auto) [place] % (Auto) Eos % (Auto) Baso % (Auto) Neut # Lymph # [place] # Eos # Baso # Neutrophils % (Manual) 80 H Band Neutrophils % 3 H Lymphocytes % (Manual) 15 L Monocytes % (Manual) 2 Platelet Estimate Normal RBC Morphology Normal Puncture Site pCO2 pO2 HCO3 ABG pH ABG Total CO2 ABG O2 Saturation ABG Base Excess ABG Hemoglobin ABG Carboxyhemoglobin POC ABG HHb (Measured) ABG Methemoglobin Fish Test A-a O2 Difference Respiratory Index Hgb O2 Saturation Mechanical Rate FiO2 Tidal Volume PEEP Sodium Potassium Chloride Carbon Dioxide Anion Gap BUN Creatinine Est GFR ( Amer) Est GFR (Non-Af Amer) POC Glucose (mg/dL) 142 H 166 H Random Glucose Calcium Phosphorus Magnesium Total Bilirubin AST ALT Alkaline Phosphatase Total Protein Albumin Globulin Albumin/Globulin Ratio C. difficile Ag & Toxin 10/10/16 10/11/16 10/11/16 Unknown 00:32 05:09 WBC RBC Hgb Hct MCV MCH MCHC RDW Plt Count MPV Neut % (Auto) Lymph % (Auto) [place] % (Auto) Eos % (Auto) Baso % (Auto) Neut # Lymph # [place] # Eos # Baso # Neutrophils % (Manual) Band Neutrophils % Lymphocytes % (Manual) Monocytes % (Manual) Platelet Estimate RBC Morphology Puncture Site Rrad pCO2 48 H pO2 105 H HCO3 31.5 H ABG pH 7.45 ABG Total CO2 34.9 H ABG O2 Saturation 98.8 H ABG Base Excess 8.4 H ABG Hemoglobin 8.9 L ABG Carboxyhemoglobin 1.3 POC ABG HHb (Measured) 1.2 ABG Methemoglobin 1.6 Fish Test Pos A-a O2 Difference 263.0 Respiratory Index 2.5 Hgb O2 Saturation 95.9 Mechanical Rate 16 FiO2 60.0 Tidal Volume 400 PEEP 5 Sodium Potassium Chloride Carbon Dioxide Anion Gap BUN Creatinine Est GFR ( Amer) Est GFR (Non-Af Amer) POC Glucose (mg/dL) 157 H Random Glucose Calcium Phosphorus Magnesium Total Bilirubin AST ALT Alkaline Phosphatase Total Protein Albumin Globulin Albumin/Globulin Ratio C. difficile Ag & Toxin Negative 10/11/16 10/11/16 06:28 06:32 WBC 11.9 H RBC 2.91 L Hgb 8.5 L Hct 26.8 L MCV 92.1 MCH 29.1 MCHC 31.5 L RDW 14.7 H Plt Count 117 L MPV 10.5 Neut % (Auto) 86.9 H Lymph % (Auto) 7.0 L [place] % (Auto) 5.8 Eos % (Auto) 0.1 Baso % (Auto) 0.2 Neut # 10.3 H Lymph # 0.8 L [place] # 0.7 Eos # 0.0 Baso # 0.0 Neutrophils % (Manual) Band Neutrophils % Lymphocytes % (Manual) Monocytes % (Manual) Platelet Estimate RBC Morphology Puncture Site pCO2 pO2 HCO3 ABG pH ABG Total CO2 ABG O2 Saturation ABG Base Excess ABG Hemoglobin ABG Carboxyhemoglobin POC ABG HHb (Measured) ABG Methemoglobin Fish Test A-a O2 Difference Respiratory Index Hgb O2 Saturation Mechanical Rate FiO2 Tidal Volume PEEP Sodium 145 Potassium 3.3 L Chloride 105 Carbon Dioxide 31 H Anion Gap 12 BUN 31 H Creatinine 1.0 Est GFR ( Amer) > 60 Est GFR (Non-Af Amer) 53 POC Glucose (mg/dL) 134 H Random Glucose 124 H Calcium 7.2 L Phosphorus 2.7 Magnesium 1.5 L Total Bilirubin 0.5 AST 19 ALT 41 Alkaline Phosphatase 43 Total Protein 3.8 L Albumin 2.0 L Globulin 1.8 L Albumin/Globulin Ratio 1.1 C. difficile Ag & Toxin Fingerstick Blood Sugar Results: 157 Review of Systems - Review of Systems Systems not reviewed;Unavailable: Intubated Review of Systems: as noted in subjective Assessment/Plan - Assessment and Plan (Free Text) Assessment: 86-year-old female with PMHx significant for COPD hypertension and CAD, initially presented to ICU with acute respiratory failure and hypercarbic encephalopathy. Patient had a prior episode of epistaxis which has since resolved. Patient desaturated 10/08/16 in mild distress prompting re-intubation. Patient with moderate left sided pleural effusion with priors plans to undergo thoracentesis however effusion stable and not as pronounced as day prior. Will continue to monitor. Plan: Neuro: Re-intubated and sedated 10/08/16- sedated but arousable Could not comply with ROS at this time 09/23/16 CT Head- Generalized atrophy. Nonspecific white matter changes. Cardiovascular: Better rate control noted HTN Diltiazem IV switched to OGT QID Plavix 75mg PO daily- held due to prior bleed Lisinopril 20mg NG BID daily Aspirin 81mg po daily- held due to prior bleed Rouvastatin 10mg po HS Pulmonary: Continue ventilatory support, follow up ABG and reduce FiO2 as tolerated Patient extubated 8:50AM 10/02/16; however re-intubated 10/08/16 due to desaturation into the 80s. Monitor Solumedrol tapered down- 20mg IV daily Budesonide 0.5mg INH Q12 Imagin10/11/16- B/L pleural effusions as noted over past few days. Left is greater than right. 10/10/16- improved left sided effusion- refer to full report 10/09/[address]- increasing pleural effusions let greater than right with associated compressive atelectasis and pneumonia; nodule noted as prev mentioned - Will require thoracentesis 10/09/16 CXR- Lines and tubes in stable position. Persistent near complete opacification of the left susie thorax with moderate to large left pleural effusion. Diffuse increased interstitial lung markings in the right lung with some relative consolidation in the medial right infrahilar region. 10/08/16 CXR- ET tube 4 cm above vicente; moderate left pleural effusion; underlying atelectasis/pneumonia cannot be excluded 10/06/[address]/Pelvis- 6 mm right middle lobe pulmonary nodule- moderate bilateral pleural effusions and associated compressive consolidations 10/02/16 CXR- Possible small left pleural effusion. No infiltrate. 10/01/16 CXR- No infiltrate. Lines and tubes unchanged. 09/30/16 CXR- No active pulmonary disease. Stable position of tubes. 09/29/16 CXR- Interval improvement in the right lung since the previous exam. 09/28/16 CXR- Interval worsening of heterogeneous opacities at the right lower lung since the previous exam. Appropriate position of the ETT and NG tube. AB10/11/16 pH 7.45, PCO2 48, PO2 105, HCO3 31.5 10/10/16 pH 7.42, PCO2 48, PO2 147, HCO3 29.5 10/09/16 pH 7.46, PCO2 47, PO2 147, HCO3 31.7 10/08/16 pH 7.34, pCO2 60, PO2 159, HCO3 28.9 ( improved) 10/07/16 pH 7.3, CO2 74, O2 40, HCO2 30.4 GI: Abdominal flat plate per GI 10/11/16 - results report mildly dilated loops of bowel in RUQ w/ nonspecific gas pattern. CT of abd/ pelvis suggested ; however patient had one performed 09/29/16. In light of suspicions of ileus will hold feeds.- F/U with GI recommendations Pepcid 20 mg IV daily Having BMs Feeds restarted at 30 mls/hr under obs. - F/U Abdominal distension- CT Abdomen 10/06/16- Cholelithiasis, anasarca, unremarkable unenhanced appearance of liver, pancreas and spleen. Stomach nondistended and bowel loops WNL w/o evidence of intestinal obstruction- moderate diffuse distension of the colon GI Consult- Dr. Ayala- Considerations for CT abdomen- See aforementioned; on Flagyl 500 mg PO TID; F/U C diff studies Gen Surg Consult- Dr. Jimenez- no surgical intervention at this time- sign off Lactulose 20mg po HS DC- Ammonia stable 10/01/16 Abd XR- Mild dilatation of the transverse and ascending colon. No evidence of small bowel obstruction. No masses or abnormal intra-abdominal calcifications. Nasogastric tube tip in left upper quadrant of abdomen. No definite free intraperitoneal air. 09/29/16 CT ABd/Pelv- 1. Cholelithiasis without CT evidence for acute cholecystitis. 2. Colonic distention with air-fluid levels which may represent ileus or pseudo obstruction, no definite evidence of mass or colitis. 3. Mild sigmoid diverticulosis without CT evidence for acute diverticulitis. 4. Several large simple cysts in the left kidney. Nonvisualization of the right kidney. 5. Mild ascites and moderate bilateral pleural effusions. 09/29/16 Abd XR- Moderately dilated bowel loops at the mid to upper abdomen right more than left. If clinically warranted further assessment by CT is suggested. Purred diet with thin liquids s/p passing of swallow eval Hematology: nasal packing removed- epistaxis resolved WBC 12.4- improving Hgb/Hct stable : 9.6/29.3- Monitor Endocrine: Maintain euglycemia HbA1c- 5.9 Insulin Sliding Scale protocol Renal: Initial KAYLEN improving. BUN/Cr: 31/1.0 Hypokalemia- repleted Hypernatremia- resolved ID: U/A negative, UC negative Blood Cx negative DC Abx 10/03/16 : Perez in place MSK: None Palliative Care: Palliative Care Consult Placed- F/U Prophylaxis- Pepcid 20mg IV daily Lovenox 40mg sc HELD due to epistaxis event, SCDs in place Ensure Enlive - three times a day <MusaAriel M - Last Filed: 10/11/16 14:36> CCU Objective - Vital Signs / Intake & Output Vital Signs (Last 4 hours): Vital Signs Temp Pulse Resp Pulse Ox 10/11/16 12:00 97.9 F 10/11/16 10:30 72 16 100 Intake and Output (Last 8hrs): Intake & Output 10/10/16 10/11/16 10/11/16 22:59 06:59 14:59 Intake Total 1075.0 1013.0 683.2 Output Total 260 290 60 Balance 815.0 723.0 623.2 Weight 169 lb 12.095 oz Intake: Intake, IV Amount 685.0 773.0 563.2 Right Proximal Port 100.0 111.0 214.7 Subclavian Right Distal Port 585 662 148.5 Subclavian Right Medial Port 200 Subclavian Tube Feeding 240 240 120 Other 150 Output: Urine 260 290 60 Urine, Voided 260 290 60 Other: # Bowel Movements 1 - Medications Active Medications: Active Medications Generic Name Dose Route Start Last Admin Trade Name Freq PRN Reason Stop Dose Admin Albuterol/Ipratropium 3 ml 10/08/16 20:00 10/11/16 12:07 Duoneb 3 Mg/0.5 Mg (3 Ml) Ud INH 3 ml RQ4 [facility] Administration Aspirin 81 mg 09/24/16 18:30 10/05/16 09:14 Aspirin Chewable PO 81 mg DAILY [facility] Administration Budesonide 0.5 mg 10/02/16 20:00 10/11/16 07:35 Pulmicort Respules INH 0.5 mg RQ12 [facility] Administration Clopidogrel Bisulfate 75 mg 09/26/16 10:00 10/05/16 09:14 Plavix PO 75 mg DAILY [facility] Administration Diltiazem HCl 60 mg 10/10/16 14:00 10/11/16 09:50 Cardizem GT Not Given QID [facility] Enoxaparin Sodium 40 mg 09/26/16 13:00 10/05/16 09:14 Lovenox SC 40 mg DAILY [facility] Administration Famotidine 20 mg 10/08/16 10:00 10/11/16 09:49 Pepcid IVP 20 mg DAILY [facility] Administration Doxycycline Hyclate 100 mg/ 100 mls @ 100 mls/hr 10/07/16 05:00 10/11/16 05:09 Sodium Chloride IVPB 100 mls/hr Q12H [facility] Administration Metronidazole 100 mls @ 100 mls/hr 10/07/16 22:00 10/11/16 06:20 Flagyl IVPB 100 mls/hr Q8 [facility] Administration Propofol 100 mls @ 2.097 mls/hr 10/08/16 12:30 10/11/16 07:32 Diprivan IV 14.7 mls/hr .Q24H PRN Administration TITRATE PER MD ORDER Protocol 5 MCG/KG/MIN Piperacillin Sod/Tazobactam Sod 50 mls @ 100 mls/hr 10/09/16 11:00 10/11/16 10: 00 Zosyn 2.25 Gm Iv Premix IVPB 100 mls/hr Q8H [facility] Administration Insulin Human Regular 0 unit 10/09/16 00:01 10/11/16 12:03 Novolin R SC Not Given Q6H [facility] Protocol Lisinopril 20 mg 10/05/16 18:00 10/11/16 09:50 Zestril NG Not Given BID [facility] Methylprednisolone 20 mg 10/07/16 10:00 10/10/16 10:21 Solu-Medrol IV 20 mg DAILY [facility] Administration Polyethylene Glycol 17 gm 10/06/16 10:00 10/11/16 09:39 Miralax PO Not Given DAILY [facility] Rosuvastatin Calcium 10 mg 09/23/16 22:00 10/10/16 21:25 Crestor PO 10 mg HS [facility] Administration - Patient Studies Lab Studies: Lab Studies 10/11/16 10/11/16 10/11/16 Range/Units 12:02 06:32 06:28 WBC 11.9 H (4.8-10.8) K/uL RBC 2.91 L (3.80-5.20) Mil/uL Hgb 8.5 L (11.0-16.0) g/dL Hct 26.8 L (34.0-47.0) % MCV 92.1 (81.0-99.0) fL MCH 29.1 (27.0-31.0) pg MCHC 31.5 L (33.0-37.0) g/dL RDW 14.7 H (11.5-14.5) % Plt Count 117 L (130-400) K/uL MPV 10.5 (7.2-11.7) fL Neut % (Auto) 86.9 H (50.0-75.0) % Lymph % (Auto) 7.0 L (20.0-40.0) % [place] % (Auto) 5.8 (0.0-10.0) % Eos % (Auto) 0.1 (0.0-4.0) % Baso % (Auto) 0.2 (0.0-2.0) % Neut # 10.3 H (1.8-7.0) K/uL Lymph # 0.8 L (1.0-4.3) K/uL [place] # 0.7 (0.0-0.8) K/uL Eos # 0.0 (0.0-0.7) K/uL Baso # 0.0 (0.0-0.2) K/uL Neutrophils % (Manual) 87 H (50-75) % Band Neutrophils % 1 (0-2) % Lymphocytes % (Manual) 9 L (20-40) % Monocytes % (Manual) 3 (0-10) % Platelet Estimate Slightly decreased L (NORMAL) Hypochromasia (manual) Moderate Poikilocytosis (manual Slight Basophilic Stippling Slight Anisocytosis (manual) Slight Microcytosis (manual) Slight Macrocytosis (manual) Slight Target Cells Slight Tear Drop Cells Slight Ovalocytes Slight [place] Cells Slight Puncture Site pCO2 (35-45) mm/Hg pO2 (80-100) mm/Hg HCO3 (21-28) mmol/L ABG pH (7.35-7.45) ABG Total CO2 (22-28) mmol/L ABG O2 Saturation (95-98) % ABG Base Excess (-2.0-3.0) mmol/L ABG Hemoglobin (11.7-17.4) g/dL ABG Carboxyhemoglobin (0.5-1.5) % POC ABG HHb (Measured) (0.0-5.0) % ABG Methemoglobin (0.0-3.0) % Fish Test A-a O2 Difference mm/Hg Respiratory Index Hgb O2 Saturation (95.0-98.0) % Mechanical Rate FiO2 % Tidal Volume PEEP Sodium 145 (132-148) mmol/L Potassium 3.3 L (3.6-5.2) mmol/L Chloride 105 (98-107) mmol/L Carbon Dioxide 31 H (22-30) mmol/L Anion Gap 12 (10-20) BUN 31 H (7-17) mg/dL Creatinine 1.0 (0.7-1.2) MG/DL Est GFR ( Amer) > 60 Est GFR (Non-Af Amer) 53 POC Glucose (mg/dL) 184 H 134 H (65-110) mg/dL Random Glucose 124 H (65-105) mg/dL Calcium 7.2 L (8.6-10.4) mg/dl Phosphorus 2.7 (2.5-4.5) mg/dL Magnesium 1.5 L (1.6-2.3) mg/dL Total Bilirubin 0.5 (0.2-1.3) mg/dL AST 19 (14-36) U/L ALT 41 (9-52) U/L Alkaline Phosphatase 43 (38-126) U/L Total Protein 3.8 L (6.3-8.3) g/dL Albumin 2.0 L (3.5-5.0) g/dL Globulin 1.8 L (2.2-3.9) gm/dL Albumin/Globulin Ratio 1.1 (1.0-2.1) C. difficile Ag & Toxin (NEGATIVE) 10/11/16 10/11/16 10/10/16 Range/Units 05:09 00:32 Unknown WBC (4.8-10.8) K/uL RBC (3.80-5.20) Mil/uL Hgb (11.0-16.0) g/dL Hct (34.0-47.0) % MCV (81.0-99.0) fL MCH (27.0-31.0) pg MCHC (33.0-37.0) g/dL RDW (11.5-14.5) % Plt Count (130-400) K/uL MPV (7.2-11.7) fL Neut % (Auto) (50.0-75.0) % Lymph % (Auto) (20.0-40.0) % [place] % (Auto) (0.0-10.0) % Eos % (Auto) (0.0-4.0) % Baso % (Auto) (0.0-2.0) % Neut # (1.8-7.0) K/uL Lymph # (1.0-4.3) K/uL [place] # (0.0-0.8) K/uL Eos # (0.0-0.7) K/uL Baso # (0.0-0.2) K/uL Neutrophils % (Manual) (50-75) % Band Neutrophils % (0-2) % Lymphocytes % (Manual) (20-40) % Monocytes % (Manual) (0-10) % Platelet Estimate (NORMAL) Hypochromasia (manual) Poikilocytosis (manual Basophilic Stippling Anisocytosis (manual) Microcytosis (manual) Macrocytosis (manual) Target Cells Tear Drop Cells Ovalocytes Jose J Cells Puncture Site Rrad pCO2 48 H (35-45) mm/Hg pO2 105 H (80-100) mm/Hg HCO3 31.5 H (21-28) mmol/L ABG pH 7.45 (7.35-7.45) ABG Total CO2 34.9 H (22-28) mmol/L ABG O2 Saturation 98.8 H (95-98) % ABG Base Excess 8.4 H (-2.0-3.0) mmol/L ABG Hemoglobin 8.9 L (11.7-17.4) g/dL ABG Carboxyhemoglobin 1.3 (0.5-1.5) % POC ABG HHb (Measured) 1.2 (0.0-5.0) % ABG Methemoglobin 1.6 (0.0-3.0) % Fish Test Pos A-a O2 Difference 263.0 mm/Hg Respiratory Index 2.5 Hgb O2 Saturation 95.9 (95.0-98.0) % Mechanical Rate 16 FiO2 60.0 % Tidal Volume 400 PEEP 5 Sodium (132-148) mmol/L Potassium (3.6-5.2) mmol/L Chloride (98-107) mmol/L Carbon Dioxide (22-30) mmol/L Anion Gap (10-20) BUN (7-17) mg/dL Creatinine (0.7-1.2) MG/DL Est GFR ( Amer) Est GFR (Non-Af Amer) POC Glucose (mg/dL) 157 H (65-110) mg/dL Random Glucose (65-105) mg/dL Calcium (8.6-10.4) mg/dl Phosphorus (2.5-4.5) mg/dL Magnesium (1.6-2.3) mg/dL Total Bilirubin (0.2-1.3) mg/dL AST (14-36) U/L ALT (9-52) U/L Alkaline Phosphatase (38-126) U/L Total Protein (6.3-8.3) g/dL Albumin (3.5-5.0) g/dL Globulin (2.2-3.9) gm/dL Albumin/Globulin Ratio (1.0-2.1) C. difficile Ag & Toxin Negative (NEGATIVE) 10/10/16 Range/Units 17:48 WBC (4.8-10.8) K/uL RBC (3.80-5.20) Mil/uL Hgb (11.0-16.0) g/dL Hct (34.0-47.0) % MCV (81.0-99.0) fL MCH (27.0-31.0) pg MCHC (33.0-37.0) g/dL RDW (11.5-14.5) % Plt Count (130-400) K/uL MPV (7.2-11.7) fL Neut % (Auto) (50.0-75.0) % Lymph % (Auto) (20.0-40.0) % [place] % (Auto) (0.0-10.0) % Eos % (Auto) (0.0-4.0) % Baso % (Auto) (0.0-2.0) % Neut # (1.8-7.0) K/uL Lymph # (1.0-4.3) K/uL [place] # (0.0-0.8) K/uL Eos # (0.0-0.7) K/uL Baso # (0.0-0.2) K/uL Neutrophils % (Manual) (50-75) % Band Neutrophils % (0-2) % Lymphocytes % (Manual) (20-40) % Monocytes % (Manual) (0-10) % Platelet Estimate (NORMAL) Hypochromasia (manual) Poikilocytosis (manual Basophilic Stippling Anisocytosis (manual) Microcytosis (manual) Macrocytosis (manual) Target Cells Tear Drop Cells Ovalocytes Jose J Cells Puncture Site pCO2 (35-45) mm/Hg pO2 (80-100) mm/Hg HCO3 (21-28) mmol/L ABG pH (7.35-7.45) ABG Total CO2 (22-28) mmol/L ABG O2 Saturation (95-98) % ABG Base Excess (-2.0-3.0) mmol/L ABG Hemoglobin (11.7-17.4) g/dL ABG Carboxyhemoglobin (0.5-1.5) % POC ABG HHb (Measured) (0.0-5.0) % ABG Methemoglobin (0.0-3.0) % Fish Test A-a O2 Difference mm/Hg Respiratory Index Hgb O2 Saturation (95.0-98.0) % Mechanical Rate FiO2 % Tidal Volume PEEP Sodium (132-148) mmol/L Potassium (3.6-5.2) mmol/L Chloride (98-107) mmol/L Carbon Dioxide (22-30) mmol/L Anion Gap (10-20) BUN (7-17) mg/dL Creatinine (0.7-1.2) MG/DL Est GFR ( Amer) Est GFR (Non-Af Amer) POC Glucose (mg/dL) 166 H (65-110) mg/dL Random Glucose (65-105) mg/dL Calcium (8.6-10.4) mg/dl Phosphorus (2.5-4.5) mg/dL Magnesium (1.6-2.3) mg/dL Total Bilirubin (0.2-1.3) mg/dL AST (14-36) U/L ALT (9-52) U/L Alkaline Phosphatase (38-126) U/L Total Protein (6.3-8.3) g/dL Albumin (3.5-5.0) g/dL Globulin (2.2-3.9) gm/dL Albumin/Globulin Ratio (1.0-2.1) C. difficile Ag & Toxin (NEGATIVE) Laboratory Results - last 24 hr 10/10/16 10/10/16 10/11/16 17:48 Unknown 00:32 WBC RBC Hgb Hct MCV MCH MCHC RDW Plt Count MPV Neut % (Auto) Lymph % (Auto) [place] % (Auto) Eos % (Auto) Baso % (Auto) Neut # Lymph # [place] # Eos # Baso # Neutrophils % (Manual) Band Neutrophils % Lymphocytes % (Manual) Monocytes % (Manual) Platelet Estimate Hypochromasia (manual) Poikilocytosis (manual Basophilic Stippling Anisocytosis (manual) Microcytosis (manual) Macrocytosis (manual) Target Cells Tear Drop Cells Ovalocytes [place] Cells Puncture Site pCO2 pO2 HCO3 ABG pH ABG Total CO2 ABG O2 Saturation ABG Base Excess ABG Hemoglobin ABG Carboxyhemoglobin POC ABG HHb (Measured) ABG Methemoglobin Fish Test A-a O2 Difference Respiratory Index Hgb O2 Saturation Mechanical Rate FiO2 Tidal Volume PEEP Sodium Potassium Chloride Carbon Dioxide Anion Gap BUN Creatinine Est GFR ( Amer) Est GFR (Non-Af Amer) POC Glucose (mg/dL) 166 H 157 H Random Glucose Calcium Phosphorus Magnesium Total Bilirubin AST ALT Alkaline Phosphatase Total Protein Albumin Globulin Albumin/Globulin Ratio C. difficile Ag & Toxin Negative 10/11/16 10/11/16 10/11/16 05:09 06:28 06:32 WBC 11.9 H RBC 2.91 L Hgb 8.5 L Hct 26.8 L MCV 92.1 MCH 29.1 MCHC 31.5 L RDW 14.7 H Plt Count 117 L MPV 10.5 Neut % (Auto) 86.9 H Lymph % (Auto) 7.0 L [place] % (Auto) 5.8 Eos % (Auto) 0.1 Baso % (Auto) 0.2 Neut # 10.3 H Lymph # 0.8 L [place] # 0.7 Eos # 0.0 Baso # 0.0 Neutrophils % (Manual) 87 H Band Neutrophils % 1 Lymphocytes % (Manual) 9 L Monocytes % (Manual) 3 Platelet Estimate Slightly decreased L Hypochromasia (manual) Moderate Poikilocytosis (manual Slight Basophilic Stippling Slight Anisocytosis (manual) Slight Microcytosis (manual) Slight Macrocytosis (manual) Slight Target Cells Slight Tear Drop Cells Slight Ovalocytes Slight [place] Cells Slight Puncture Site Rrad pCO2 48 H pO2 105 H HCO3 31.5 H ABG pH 7.45 ABG Total CO2 34.9 H ABG O2 Saturation 98.8 H ABG Base Excess 8.4 H ABG Hemoglobin 8.9 L ABG Carboxyhemoglobin 1.3 POC ABG HHb (Measured) 1.2 ABG Methemoglobin 1.6 Fish Test Pos A-a O2 Difference 263.0 Respiratory Index 2.5 Hgb O2 Saturation 95.9 Mechanical Rate 16 FiO2 60.0 Tidal Volume 400 PEEP 5 Sodium 145 Potassium 3.3 L Chloride 105 Carbon Dioxide 31 H Anion Gap 12 BUN 31 H Creatinine 1.0 Est GFR ( Amer) > 60 Est GFR (Non-Af Amer) 53 POC Glucose (mg/dL) 134 H Random Glucose 124 H Calcium 7.2 L Phosphorus 2.7 Magnesium 1.5 L Total Bilirubin 0.5 AST 19 ALT 41 Alkaline Phosphatase 43 Total Protein 3.8 L Albumin 2.0 L Globulin 1.8 L Albumin/Globulin Ratio 1.1 C. difficile Ag & Toxin 10/11/16 12:02 WBC RBC Hgb Hct MCV MCH MCHC RDW Plt Count MPV Neut % (Auto) Lymph % (Auto) [place] % (Auto) Eos % (Auto) Baso % (Auto) Neut # Lymph # [place] # Eos # Baso # Neutrophils % (Manual) Band Neutrophils % Lymphocytes % (Manual) Monocytes % (Manual) Platelet Estimate Hypochromasia (manual) Poikilocytosis (manual Basophilic Stippling Anisocytosis (manual) Microcytosis (manual) Macrocytosis (manual) Target Cells Tear Drop Cells Ovalocytes Jose J Cells Puncture Site pCO2 pO2 HCO3 ABG pH ABG Total CO2 ABG O2 Saturation ABG Base Excess ABG Hemoglobin ABG Carboxyhemoglobin POC ABG HHb (Measured) ABG Methemoglobin Fish Test A-a O2 Difference Respiratory Index Hgb O2 Saturation Mechanical Rate FiO2 Tidal Volume PEEP Sodium Potassium Chloride Carbon Dioxide Anion Gap BUN Creatinine Est GFR ( Amer) Est GFR (Non-Af Amer) POC Glucose (mg/dL) 184 H Random Glucose Calcium Phosphorus Magnesium Total Bilirubin AST ALT Alkaline Phosphatase Total Protein Albumin Globulin Albumin/Globulin Ratio C. difficile Ag & Toxin Attending/Attestation - Attestation I have personally seen and examined this patient.: Yes I have fully participated in the care of the patient.: Yes I have reviewed all pertinent clinical information: Yes Notes (Text): 10/11/16 14:25 Today: Tuesday, October 11, 2016 The Patient was seen and examined at the bedside, Medical records reviewed, all clinical/lab/hemodynamic/radiographic data were reviewed and management issues were discussed and formulated, Events reviewed Pain issues, skin care, head of the bed elevation, glycemic control were addressed. 86 Y/O critically sick F with Acute hypoxemic respiratory failure, orally intubated Continue Antibiotics, IV Steroids, CCB Tube feeding BD Nebs Wean off Sedations Wean off FIO2 Monitor urine output Monitor I&O ASA, Plavix and statins GI/ DVT PPx Code: full Agree with above treatment plans as transcribed in Dr. Hearn note
[2016-10-11] MEDS: Budesonide 0.5 mg/2 ml Inhal Susp UD INH SCH ×2 (07:35→19:51)
[2016-10-11 08:35] LABS: NEUTROPHIL 87 % (50-75); TOTAL CELLS COUNTED 100
[2016-10-11] MEDS: Potassium Chloride 20 mEq 100 ML IVPB SCH (08:44)
[2016-10-11] MEDS: POLYETHYLENE GLYCOL 3350 17 GM/Dose PACKET PO SCH (09:39)
--- NOTE | 2016-10-11 09:54 | RAD ---
HISTORY: ileus COMPARISON: Radiograph from 10/05/[address] from 10/06/2016. FINDINGS: BOWEL: Dilated loops of large bowel in the right upper quadrant. BONES: Degenerative changes and osteopenia. OTHER FINDINGS: Left-sided pleural effusion noted. IMPRESSION: Mildly dilated loops of large bowel in the right upper quadrant. Nonspecific bowel gas pattern. CT of the abdomen pelvis can be obtained there is continued suspicion for bowel obstruction.
[2016-10-11] MEDS: MethylPREDNISolone 40 mg Vial IV SCH (10:00)
--- NOTE | 2016-10-11 10:13 | RAD ---
HISTORY: monitor effusion COMPARISON: 10/10/2016 FINDINGS: LUNGS: Hazy opacity in the lung bases. PLEURA: Bilateral pleural effusions left greater than right. Moderate size effusion on the left.Biapical pleural parenchymal thickening noted. CARDIOVASCULAR: Stable cardiomediastinal silhouette. OSSEOUS STRUCTURES: The osseous structures demonstrate degenerative changes. VISUALIZED UPPER ABDOMEN: Upper abdomen is suboptimally evaluated. OTHER FINDINGS: Presumed right-sided PICC with the distal tip of the catheter overlying the projection of the SVC/right atrial junction. ET tube with the distal tip above the tracheal bifurcation. Feeding tube with the distal tip not seen but below the level of the diaphragm. IMPRESSION: Bilateral pleural effusions left greater than right. Underlying hazy opacities could be atelectasis.
--- NOTE | 2016-10-12 00:22 | CP.PCM.PN ---
Subjective - Date & Time of Evaluation Date of Evaluation: 10/11/16 Time of Evaluation: 13:03 - Subjective Subjective: Pt is on MV, antibiotics, WBCs is down, Hb is low looks like anemia of chronic disease,no acute changes Objective - Vital Signs/Intake and Output Vital Signs (last 24 hours): Temp Pulse Resp BP Pulse Ox 97.6 F 74 16 113/60 100 10/12/16 00:00 10/12/16 00:00 10/12/16 00:00 10/11/16 23:01 10/12/16 00:00 Intake and Output: 10/11/16 10/12/16 18:59 06:59 Intake Total 942.0 315.1 Output Total 60 205 Balance 882.0 110.1 - Medications Medications: Current Medications Albuterol/Ipratropium (Duoneb 3 Mg/0.5 Mg (3 Ml) Ud) 3 ml INH RQ4 [facility]S [facility] 234 BEDS AT [facility] Last Admin: 10/11/16 23:36 Dose: 3 ml Aspirin (Aspirin Chewable) 81 mg PO DAILY [facility]S [facility]CLUDE 234 BEDS AT [facility] Last Admin: 10/05/16 09:14 Dose: 81 mg Budesonide (Pulmicort Respules) 0.5 mg INH RQ12 [facility]S [facility]CLUDE 234 BEDS AT [facility] Last Admin: 10/11/16 19:51 Dose: 0.5 mg Clopidogrel Bisulfate (Plavix) 75 mg PO DAILY COUNTS INCLUDE 234 BEDS AT [facility] Last Admin: 10/05/16 09:14 Dose: 75 mg Diltiazem HCl (Cardizem) 60 mg GT QID COUNTS INCLUDE 234 BEDS AT [facility] Last Admin: 10/11/16 21:36 Dose: 60 mg Enoxaparin Sodium (Lovenox) 40 mg SC DAILY [facility]S INCLUDE 234 BEDS AT [facility] Last Admin: 10/05/16 09:14 Dose: 40 mg Famotidine (Pepcid) 20 mg IVP DAILY [facility]S [facility]CLUDE 234 BEDS AT [facility] Last Admin: 10/11/16 09:49 Dose: 20 mg Doxycycline Hyclate 100 mg/ (Sodium Chloride) 100 mls @ 100 mls/hr IVPB Q12H [facility]S INCLUDE 234 BEDS AT [facility] Last Admin: 10/11/16 18:15 Dose: 100 mls/hr Metronidazole (Flagyl) 100 mls @ 100 mls/hr IVPB Q8 [facility]S [facility]CLUDE 234 BEDS AT [facility] Last Admin: 10/11/16 21:36 Dose: 100 mls/hr Propofol (Diprivan) 100 mls @ 2.097 mls/hr IV .Q24H PRN; Protocol; 5 MCG/KG/MIN PRN Reason: TITRATE PER MD ORDER Last Admin: 10/11/16 22:59 Dose: 12.584 mls/hr Piperacillin Sod/Tazobactam Sod (Zosyn 2.25 Gm Iv Premix) 50 mls @ 100 mls/hr IVPB Q8H [facility]S [facility]CLUDE 234 BEDS AT THE [facility] Last Admin: 10/11/16 18:14 Dose: 100 mls/hr Insulin Human Regular (Novolin R) 0 unit SC Q6H [facility] PRN Reason: Protocol Last Admin: 10/11/16 18:22 Dose: Not Given Lisinopril (Zestril) 20 mg NG BID COUNTS INCLUDE 234 BEDS AT [facility] Last Admin: 10/11/16 18:12 Dose: Not Given Methylprednisolone (Solu-Medrol) 20 mg IV DAILY COUNTS INCLUDE 234 BEDS AT THE [facility] Last Admin: 10/11/16 10:00 Dose: 20 mg Polyethylene Glycol (Miralax) 17 gm PO DAILY COUNTS INCLUDE 234 BEDS AT THE [facility] Last Admin: 10/11/16 09:39 Dose: Not Given Rosuvastatin Calcium (Crestor) 10 mg PO HS COUNTS INCLUDE 234 BEDS AT THE [facility] Last Admin: 10/11/16 21:36 Dose: 10 mg - Labs Labs: 10/11/16 06:32 10/11/16 06:32 PT 12.3 SECONDS (9.7-12.2) H 10/06/16 01:34 INR 1.1 10/06/16 01:34 APTT 27 SECONDS (21-34) 10/06/16 01:34 - Constitutional Appears: No Acute Distress, Chronically Ill - Eye Exam Eye Exam: EOMI, Normal appearance, PERRL Pupil Exam: NORMAL ACCOMODATION, PERRL - ENT Exam ENT Exam: Mucous Membranes Moist, Normal Exam - Neck Exam Neck Exam: Full ROM, Normal Inspection. absent: Lymphadenopathy - Respiratory Exam Respiratory Exam: Decreased Breath Sounds, Rhonchi Additional comments: b/l transmitted breath sounds b/l rales and ronchi - Cardiovascular Exam Cardiovascular Exam: REGULAR RHYTHM, +S1, +S2. absent: Murmur Assessment and Plan (1) Acute respiratory failure with hypoxia and hypercarbia Status: Resolved (2) Altered mental status Status: Resolved (3) Acute [place] Status: Acute (4) Dehydration Status: Acute
--- NOTE | 2016-10-12 00:25 | CP.PCM.PN ---
Subjective - Date & Time of Evaluation Date of Evaluation: 10/10/16 Time of Evaluation: 13:03 - Subjective Subjective: Patient seen and evaluated, remains on mechanical ventilator, no acute distress , under ICU care Objective - Vital Signs/Intake and Output Vital Signs (last 24 hours): Temp Pulse Resp BP Pulse Ox 97.6 F 74 16 113/60 100 10/12/16 00:00 10/12/16 00:00 10/12/16 00:00 10/11/16 23:01 10/12/16 00:00 Intake and Output: 10/11/16 10/12/16 18:59 06:59 Intake Total 942.0 325.6 Output Total 60 250 Balance 882.0 75.6 - Medications Medications: Current Medications Albuterol/Ipratropium (Duoneb 3 Mg/0.5 Mg (3 Ml) Ud) 3 ml INH RQ4 [facility] Last Admin: 10/11/16 23:36 Dose: 3 ml Aspirin (Aspirin Chewable) 81 mg PO DAILY [facility] Last Admin: 10/05/16 09:14 Dose: 81 mg Budesonide (Pulmicort Respules) 0.5 mg INH RQ12 [facility] Last Admin: 10/11/16 19:51 Dose: 0.5 mg Clopidogrel Bisulfate (Plavix) 75 mg PO DAILY [facility] Last Admin: 10/05/16 09:14 Dose: 75 mg Diltiazem HCl (Cardizem) 60 mg GT QID [facility] Last Admin: 10/11/16 21:36 Dose: 60 mg Enoxaparin Sodium (Lovenox) 40 mg SC DAILY [facility] Last Admin: 10/05/16 09:14 Dose: 40 mg Famotidine (Pepcid) 20 mg IVP DAILY [facility] Last Admin: 10/11/16 09:49 Dose: 20 mg Doxycycline Hyclate 100 mg/ (Sodium Chloride) 100 mls @ 100 mls/hr IVPB Q12H [facility] Last Admin: 10/11/16 18:15 Dose: 100 mls/hr Metronidazole (Flagyl) 100 mls @ 100 mls/hr IVPB Q8 [facility] Last Admin: 10/11/16 21:36 Dose: 100 mls/hr Propofol (Diprivan) 100 mls @ 2.097 mls/hr IV .Q24H PRN; Protocol; 5 MCG/KG/MIN PRN Reason: TITRATE PER MD ORDER Last Admin: 10/11/16 22:59 Dose: 12.584 mls/hr Piperacillin Sod/Tazobactam Sod (Zosyn 2.25 Gm Iv Premix) 50 mls @ 100 mls/hr IVPB Q8H [facility] Last Admin: 10/11/16 18:14 Dose: 100 mls/hr Insulin Human Regular (Novolin R) 0 unit SC Q6H [facility] PRN Reason: Protocol Last Admin: 10/11/16 18:22 Dose: Not Given Lisinopril (Zestril) 20 mg NG BID [facility] Last Admin: 10/11/16 18:12 Dose: Not Given Methylprednisolone (Solu-Medrol) 20 mg IV DAILY [facility] Last Admin: 10/11/16 10:00 Dose: 20 mg Polyethylene Glycol (Miralax) 17 gm PO DAILY [facility] Last Admin: 10/11/16 09:39 Dose: Not Given Rosuvastatin Calcium (Crestor) 10 mg PO HS [facility] Last Admin: 10/11/16 21:36 Dose: 10 mg - Labs Labs: 10/11/16 06:32 10/11/16 06:32 PT 12.3 SECONDS (9.7-12.2) H 10/06/16 01:34 INR 1.1 10/06/16 01:34 APTT 27 SECONDS (21-34) 10/06/16 01:34 - Constitutional Appears: No Acute Distress, Chronically Ill - Eye Exam Eye Exam: EOMI, Normal appearance, PERRL Pupil Exam: NORMAL ACCOMODATION, PERRL - Respiratory Exam Respiratory Exam: Decreased Breath Sounds, Rales, Rhonchi - Cardiovascular Exam Cardiovascular Exam: REGULAR RHYTHM, +S1, +S2. absent: Murmur - GI/Abdominal Exam GI & Abdominal Exam: Soft, Normal Bowel Sounds. absent: Tenderness Assessment and Plan (1) Acute respiratory failure with hypoxia and hypercarbia Status: Resolved (2) Altered mental status Status: Resolved (3) Acute CT Status: Acute (4) Dehydration Status: Acute
[2016-10-12] MEDS: (Novolin R) Insulin Human Regular 100 units/ml vial SC SCH ×4 (01:10→17:01)
[2016-10-12] MEDS: Piperacill/Tazo 2.25gm in Dex 50 ML IVPB SCH ×3 (02:35→18:29)
[2016-10-12] MEDS: Albuterol-Ipratrop 3 mg / 0.5 (3 ml) UD INH SCH ×5 (03:07→19:22)
[2016-10-12 04:55] LABS: ABG ALLEN TEST POS; ABG MECHANICAL RATE 16; ARTERIAL BLOOD HGB O2 SAT 96.3 % (95.0-98.0); ATERIAL BLOOD GAS PEEP 5; CARBOXYHEMOGLOBIN 1.6 % (0.5-1.5); DRAW SITE RR; HHB 0.5 % (0.0-5.0); METHEMOGLOBIN 1.5 % (0.0-3.0)
[2016-10-12] MEDS: metroNIDAZOLE IV 500 mg/100 ml 100 ML IVPB SCH ×3 (05:51→21:07)
[2016-10-12 06:44] LABS: BASO % 0.2 % (0.0-2.0); EOS % 0.2 % (0.0-4.0); HEMATOCRIT 26.8 % (34.0-47.0); LYMPH # 0.6 K/uL (1.0-4.3); MEAN CELL VOLUME 91.4 fL (81.0-99.0); MEAN CORPUSCULAR HEMOGLOBIN 29.7 pg (27.0-31.0); MEAN CORPUSCULAR HGB CONC 32.5 g/dL (33.0-37.0); MEAN PLATELET VOLUME 10.6 fL (7.2-11.7); MONO # 0.6 K/uL (0.0-0.8); MONO % 5.7 % (0.0-10.0); PLATELET COUNT 98 K/uL (130-400); RED CELL DISTRIBUTION WIDTH 14.9 % (11.5-14.5); WHITE BLOOD COUNT 10.2 K/uL (4.8-10.8)
[2016-10-12 07:01] LABS: POTASSIUM 3.2 mmol/L (3.6-5.2)
[2016-10-12 07:04] LABS: BILIRUBIN,TOTAL 0.3 mg/dL (0.2-1.3); CALCIUM 7.4 mg/dl (8.6-10.4); PHOSPHOROUS 3.1 mg/dL (2.5-4.5); TOTAL PROTEIN 3.9 g/dL (6.3-8.3)
[2016-10-12 07:05] LABS: MAGNESIUM 1.9 mg/dL (1.6-2.3)
[2016-10-12] MEDS: Budesonide 0.5 mg/2 ml Inhal Susp UD INH SCH ×2 (07:33→19:23)
[2016-10-12 08:49] LABS: NEUTROPHIL 87 % (50-75); TOTAL CELLS COUNTED 100
--- NOTE | 2016-10-12 09:31 | CP.PCM.PN ---
Subjective - Date & Time of Evaluation Date of Evaluation: 10/11/16 Time of Evaluation: 10:15 - Subjective Subjective: Patient was seen 10/11/16. F/U abdom distention. No report of RB, melena, SZ, tremor, hematemesis, hemoptysis, hematuria Objective - Vital Signs/Intake and Output Vital Signs (last 24 hours): Temp Pulse Resp BP Pulse Ox 97.9 F 64 16 108/66 100 10/12/16 07:00 10/12/16 07:01 10/12/16 07:01 10/12/16 07:01 10/12/16 07:01 Intake and Output: 10/12/16 10/12/16 06:59 18:59 Intake Total 628.1 12.5 Output Total 980 50 Balance -351.9 -37.5 - Medications Medications: Current Medications Albuterol/Ipratropium (Duoneb 3 Mg/0.5 Mg (3 Ml) Ud) 3 ml INH RQ4 [facility] Last Admin: 10/12/16 07:33 Dose: 3 ml Aspirin (Aspirin Chewable) 81 mg PO DAILY [facility] Last Admin: 10/05/16 09:14 Dose: 81 mg Budesonide (Pulmicort Respules) 0.5 mg INH RQ12 [facility] Last Admin: 10/12/16 07:33 Dose: 0.5 mg Clopidogrel Bisulfate (Plavix) 75 mg PO DAILY [facility] Last Admin: 10/05/16 09:14 Dose: 75 mg Diltiazem HCl (Cardizem) 60 mg GT QID [facility] Last Admin: 10/11/16 21:36 Dose: 60 mg Enoxaparin Sodium (Lovenox) 40 mg SC DAILY [facility] Last Admin: 10/05/16 09:14 Dose: 40 mg Famotidine (Pepcid) 20 mg IVP DAILY [facility] Last Admin: 10/11/16 09:49 Dose: 20 mg Doxycycline Hyclate 100 mg/ (Sodium Chloride) 100 mls @ 100 mls/hr IVPB Q12H [facility] Last Admin: 10/12/16 04:16 Dose: 100 mls/hr Metronidazole (Flagyl) 100 mls @ 100 mls/hr IVPB Q8 [facility] Last Admin: 10/12/16 05:51 Dose: 100 mls/hr Propofol (Diprivan) 100 mls @ 2.097 mls/hr IV .Q24H PRN; Protocol; 5 MCG/KG/MIN PRN Reason: TITRATE PER MD ORDER Last Admin: 10/12/16 07:01 Dose: 6.292 mls/hr Piperacillin Sod/Tazobactam Sod (Zosyn 2.25 Gm Iv Premix) 50 mls @ 100 mls/hr IVPB Q8H [facility] Last Admin: 10/12/16 02:35 Dose: 100 mls/hr Insulin Human Regular (Novolin R) 0 unit SC Q6H [facility] PRN Reason: Protocol Last Admin: 10/12/16 05:54 Dose: Not Given Lisinopril (Zestril) 20 mg NG BID [facility] Last Admin: 10/11/16 18:12 Dose: Not Given Methylprednisolone (Solu-Medrol) 20 mg IV DAILY [facility] Last Admin: 10/11/16 10:00 Dose: 20 mg Polyethylene Glycol (Miralax) 17 gm PO DAILY [facility] Last Admin: 10/11/16 09:39 Dose: Not Given Rosuvastatin Calcium (Crestor) 10 mg PO HS [facility] Last Admin: 10/11/16 21:36 Dose: 10 mg - Labs Labs: 10/12/16 06:36 10/12/16 06:36 PT 12.3 SECONDS (9.7-12.2) H 10/06/16 01:34 INR 1.1 10/06/16 01:34 APTT 27 SECONDS (21-34) 10/06/16 01:34 - Respiratory Exam Respiratory Exam: Rhonchi - Cardiovascular Exam Cardiovascular Exam: Tachycardia - GI/Abdominal Exam GI & Abdominal Exam: Distended, Normal Bowel Sounds. absent: Tenderness - Neurological Exam Additional comments: responds Assessment and Plan (1) Respiratory failure Status: Chronic (2) Abdominal distension Status: Acute (3) Acute [place] Status: Acute (4) Atrial fibrillation Status: Acute (5) Dysphagia Status: Acute (6) Hypernatremia Status: Acute (7) Leucocytosis Status: Acute (8) Anemia Assessment & Plan: Check OB. Check Hbs. Status: Acute
[2016-10-12] MEDS: POLYETHYLENE GLYCOL 3350 17 GM/Dose PACKET PO SCH (10:28)
[2016-10-12] MEDS: MethylPREDNISolone 40 mg Vial IV SCH (10:31)
--- NOTE | 2016-10-12 10:54 | CP.PCM.PN ---
Subjective - Date & Time of Evaluation Date of Evaluation: 10/12/16 Time of Evaluation: 10:52 - Subjective Subjective: F/U colon distention. No report of RB, melena, hematuria, hemoptysis, SZ, tremor, rash, [place] Objective - Vital Signs/Intake and Output Vital Signs (last 24 hours): Temp Pulse Resp BP Pulse Ox 97.9 F 64 16 108/66 100 10/12/16 07:00 10/12/16 07:01 10/12/16 07:01 10/12/16 07:01 10/12/16 07:01 Intake and Output: 10/12/16 10/12/16 06:59 18:59 Intake Total 628.1 12.5 Output Total 980 50 Balance -351.9 -37.5 - Medications Medications: Current Medications Albuterol/Ipratropium (Duoneb 3 Mg/0.5 Mg (3 Ml) Ud) 3 ml INH RQ4 [facility] Last Admin: 10/12/16 07:33 Dose: 3 ml Aspirin (Aspirin Chewable) 81 mg PO DAILY [facility] Last Admin: 10/05/16 09:14 Dose: 81 mg Budesonide (Pulmicort Respules) 0.5 mg INH RQ12 [facility] Last Admin: 10/12/16 07:33 Dose: 0.5 mg Clopidogrel Bisulfate (Plavix) 75 mg PO DAILY [facility] Last Admin: 10/05/16 09:14 Dose: 75 mg Diltiazem HCl (Cardizem) 60 mg GT QID [facility] Last Admin: 10/12/16 10:28 Dose: Not Given Enoxaparin Sodium (Lovenox) 40 mg SC DAILY [facility] Last Admin: 10/05/16 09:14 Dose: 40 mg Famotidine (Pepcid) 20 mg IVP DAILY [facility] Last Admin: 10/12/16 10:31 Dose: 20 mg Doxycycline Hyclate 100 mg/ (Sodium Chloride) 100 mls @ 100 mls/hr IVPB Q12H [facility] Last Admin: 10/12/16 04:16 Dose: 100 mls/hr Metronidazole (Flagyl) 100 mls @ 100 mls/hr IVPB Q8 [facility] Last Admin: 10/12/16 05:51 Dose: 100 mls/hr Propofol (Diprivan) 100 mls @ 2.097 mls/hr IV .Q24H PRN; Protocol; 5 MCG/KG/MIN PRN Reason: TITRATE PER MD ORDER Last Admin: 10/12/16 07:01 Dose: 6.292 mls/hr Piperacillin Sod/Tazobactam Sod (Zosyn 2.25 Gm Iv Premix) 50 mls @ 100 mls/hr IVPB Q8H [facility] Last Admin: 10/12/16 02:35 Dose: 100 mls/hr Insulin Human Regular (Novolin R) 0 unit SC Q6H [facility] PRN Reason: Protocol Last Admin: 10/12/16 05:54 Dose: Not Given Lisinopril (Zestril) 20 mg NG BID [facility] Last Admin: 10/12/16 10:29 Dose: Not Given Methylprednisolone (Solu-Medrol) 20 mg IV DAILY [facility] Last Admin: 10/12/16 10:31 Dose: 20 mg Polyethylene Glycol (Miralax) 17 gm PO DAILY [facility] Last Admin: 10/12/16 10:28 Dose: Not Given Rosuvastatin Calcium (Crestor) 10 mg PO HS [facility] Last Admin: 10/11/16 21:36 Dose: 10 mg - Labs Labs: 10/12/16 06:36 10/12/16 06:36 PT 12.3 SECONDS (9.7-12.2) H 10/06/16 01:34 INR 1.1 10/06/16 01:34 APTT 27 SECONDS (21-34) 10/06/16 01:34 - Respiratory Exam Respiratory Exam: Rhonchi - Cardiovascular Exam Cardiovascular Exam: RRR - GI/Abdominal Exam GI & Abdominal Exam: Distended, Normal Bowel Sounds. absent: Guarding, Tenderness, Rebound - Extremities Exam Extremities Exam: absent: Calf Tenderness Assessment and Plan (1) Respiratory failure Status: Chronic (2) Abdominal distension Assessment & Plan: colon distention overall less. Status: Acute (3) Acute ME Status: Acute (4) Atrial fibrillation Status: Acute (5) Dysphagia Status: Acute (6) Hypernatremia Status: Acute (7) Leucocytosis Status: Acute (8) Anemia Assessment & Plan: WBC, Hb and PLTs have all been dropping. No signs of GI bleeding. Status: Acute
[2016-10-12] MEDS ORDERED: Potassium Chloride 20 mEq 100 ML IVPB ONE (11:15)
--- NOTE | 2016-10-12 17:20 | CP.CCUPN ---
CCU Subjective - Physician Review Events Since Last Encounter (Free Text): 10/12/16 17:17 Patient seen and examined in the intensive care unit. Case discussed with house staff in the morning rounds. Remains intubated on ventilatory support, FiO2 reduced to 50% Patient not tolerating weaning Abdominal distention noted Sedated CCU Objective - Vital Signs / Intake & Output Intake and Output (Last 8hrs): Intake & Output 10/12/16 10/12/16 10/12/16 06:59 14:59 22:59 Intake Total 325.6 337.5 12.5 Output Total 810 250 Balance -484.4 87.5 12.5 Weight 176 lb 5.917 oz Intake: Intake, IV Amount 325.6 337.5 12.5 Right Proximal Port 75.6 87.5 12.5 Subclavian Right Medial Port 250 250 Subclavian Output: Urine 310 250 Urine, Voided 310 250 Stool 500 Other: # Bowel Movements 1 1 - Physical Exam Head: Positive for: Atraumatic, Normocephalic, Other (ET Tube in place) Pupils: Positive for: PERRL Extroacular Muscles: Positive for: EOMI Conjunctiva: Positive for: Injected Mouth: Positive for: Dry Nose (Internal): Positive for: Other (Nasal packing in place) Neck: Positive for: Normal Range of Motion Respiratory/Chest: Positive for: Clear to Auscultation, Good Air Exchange, Rales. Negative for: Respiratory Distress, Accessory Muscle Use Cardiovascular: Positive for: Normal S1, S2, Irregular Rhythm. Negative for: Regular Rate and Rhythm, Murmurs Abdomen: Positive for: Distention, Normal Bowel Sounds. Negative for: Peritoneal Signs, Rebound Genitourinary/Pelvic Exam: Positive for: Other (perez in place) Upper Extremity: Positive for: Normal Inspection. Negative for: Cyanosis, Edema Lower Extremity: Positive for: Normal Inspection. Negative for: Edema, CALF TENDERNESS Neurological: Positive for: CN II-XII Intact Skin: Positive for: Warm, Dry Psychiatric: Positive for: Alert - Medications Active Medications: Active Medications Generic Name Dose Route Start Last Admin Trade Name Freq PRN Reason Stop Dose Admin Albuterol/Ipratropium 3 ml 10/08/16 20:00 10/12/16 15:56 Duoneb 3 Mg/0.5 Mg (3 Ml) Ud INH 3 ml RQ4 [facility] Administration Aspirin 81 mg 09/24/16 18:30 10/05/16 09:14 Aspirin Chewable PO 81 mg DAILY [facility] Administration Budesonide 0.5 mg 10/02/16 20:00 10/12/16 07:33 Pulmicort Respules INH 0.5 mg RQ12 [facility] Administration Clopidogrel Bisulfate 75 mg 09/26/16 10:00 10/05/16 09:14 Plavix PO 75 mg DAILY [facility] Administration Diltiazem HCl 60 mg 10/10/16 14:00 10/12/16 17:02 Cardizem GT Not Given QID [facility] Enoxaparin Sodium 40 mg 09/26/16 13:00 10/05/16 09:14 Lovenox SC 40 mg DAILY [facility] Administration Famotidine 20 mg 10/08/16 10:00 10/12/16 10:31 Pepcid IVP 20 mg DAILY [facility] Administration Doxycycline Hyclate 100 mg/ 100 mls @ 100 mls/hr 10/07/16 05:00 10/12/16 17:06 Sodium Chloride IVPB 100 mls/hr Q12H [facility] Administration Metronidazole 100 mls @ 100 mls/hr 10/07/16 22:00 10/12/16 14:14 Flagyl IVPB 100 mls/hr Q8 [facility] Administration Propofol 100 mls @ 2.097 mls/hr 10/08/16 12:30 10/12/16 07:01 Diprivan IV 6.292 mls/hr .Q24H PRN Administration TITRATE PER MD ORDER Protocol 5 MCG/KG/MIN Piperacillin Sod/Tazobactam Sod 50 mls @ 100 mls/hr 10/09/16 11:00 10/12/16 11: 30 Zosyn 2.25 Gm Iv Premix IVPB 100 mls/hr Q8H [facility] Administration Insulin Human Regular 0 unit 10/09/16 00:01 10/12/16 17:01 Novolin R SC Not Given Q6H [facility] Protocol Lisinopril 20 mg 10/05/16 18:00 10/12/16 17:00 Zestril NG Not Given BID [facility] Methylprednisolone 20 mg 10/07/16 10:00 10/12/16 10:31 Solu-Medrol IV 20 mg DAILY [facility] Administration Polyethylene Glycol 17 gm 10/06/16 10:00 10/12/16 10:28 Miralax PO Not Given DAILY [facility] Rosuvastatin Calcium 10 mg 09/23/16 22:00 10/11/16 21:36 Crestor PO 10 mg HS [facility] Administration - Patient Studies Lab Studies: Lab Studies 10/12/16 10/12/16 10/12/16 Range/Units 11:29 06:36 05:53 WBC 10.2 (4.8-10.8) K/uL RBC 2.94 L (3.80-5.20) Mil/uL Hgb 8.7 L (11.0-16.0) g/dL Hct 26.8 L (34.0-47.0) % MCV 91.4 (81.0-99.0) fL MCH 29.7 (27.0-31.0) pg MCHC 32.5 L (33.0-37.0) g/dL RDW 14.9 H (11.5-14.5) % Plt Count 98 L (130-400) K/uL MPV 10.6 (7.2-11.7) fL Neut % (Auto) 87.9 H (50.0-75.0) % Lymph % (Auto) 6.0 L (20.0-40.0) % [place] % (Auto) 5.7 (0.0-10.0) % Eos % (Auto) 0.2 (0.0-4.0) % Baso % (Auto) 0.2 (0.0-2.0) % Neut # 9.0 H (1.8-7.0) K/uL Lymph # 0.6 L (1.0-4.3) K/uL [place] # 0.6 (0.0-0.8) K/uL Eos # 0.0 (0.0-0.7) K/uL Baso # 0.0 (0.0-0.2) K/uL Neutrophils % (Manual) 87 H (50-75) % Band Neutrophils % 2 (0-2) % Lymphocytes % (Manual) 7 L (20-40) % Monocytes % (Manual) 4 (0-10) % Platelet Estimate Decreased L (NORMAL) Poikilocytosis (manual Slight Anisocytosis (manual) Slight Tear Drop Cells Slight Ovalocytes Slight Schistocytes Slight Puncture Site pCO2 (35-45) mm/Hg pO2 (80-100) mm/Hg HCO3 (21-28) mmol/L ABG pH (7.35-7.45) ABG Total CO2 (22-28) mmol/L ABG O2 Saturation (95-98) % ABG Base Excess (-2.0-3.0) mmol/L ABG Hemoglobin (11.7-17.4) g/dL ABG Carboxyhemoglobin (0.5-1.5) % POC ABG HHb (Measured) (0.0-5.0) % ABG Methemoglobin (0.0-3.0) % Fish Test A-a O2 Difference mm/Hg Respiratory Index Hgb O2 Saturation (95.0-98.0) % Mechanical Rate FiO2 % Tidal Volume PEEP Sodium 145 (132-148) mmol/L Potassium 3.2 L (3.6-5.2) mmol/L Chloride 109 H (98-107) mmol/L Carbon Dioxide 28 (22-30) mmol/L Anion Gap 10 (10-20) BUN 26 H (7-17) mg/dL Creatinine 1.2 (0.7-1.2) MG/DL Est GFR ( Amer) 52 Est GFR (Non-Af Amer) 43 POC Glucose (mg/dL) 126 H 110 (65-110) mg/dL Random Glucose 95 (65-105) mg/dL Calcium 7.4 L (8.6-10.4) mg/dl Phosphorus 3.1 (2.5-4.5) mg/dL Magnesium 1.9 (1.6-2.3) mg/dL Total Bilirubin 0.3 (0.2-1.3) mg/dL AST 19 (14-36) U/L ALT 44 (9-52) U/L Alkaline Phosphatase 40 (38-126) U/L Total Protein 3.9 L (6.3-8.3) g/dL Albumin 1.9 L (3.5-5.0) g/dL Globulin 2.0 L (2.2-3.9) gm/dL Albumin/Globulin Ratio 1.0 (1.0-2.1) 10/12/16 10/12/16 10/11/16 Range/Units 04:35 01:09 17:49 WBC (4.8-10.8) K/uL RBC (3.80-5.20) Mil/uL Hgb (11.0-16.0) g/dL Hct (34.0-47.0) % MCV (81.0-99.0) fL MCH (27.0-31.0) pg MCHC (33.0-37.0) g/dL RDW (11.5-14.5) % Plt Count (130-400) K/uL MPV (7.2-11.7) fL Neut % (Auto) (50.0-75.0) % Lymph % (Auto) (20.0-40.0) % [place] % (Auto) (0.0-10.0) % Eos % (Auto) (0.0-4.0) % Baso % (Auto) (0.0-2.0) % Neut # (1.8-7.0) K/uL Lymph # (1.0-4.3) K/uL [place] # (0.0-0.8) K/uL Eos # (0.0-0.7) K/uL Baso # (0.0-0.2) K/uL Neutrophils % (Manual) (50-75) % Band Neutrophils % (0-2) % Lymphocytes % (Manual) (20-40) % Monocytes % (Manual) (0-10) % Platelet Estimate (NORMAL) Poikilocytosis (manual Anisocytosis (manual) Tear Drop Cells Ovalocytes Schistocytes Puncture Site Rr pCO2 44 (35-45) mm/Hg pO2 145 H (80-100) mm/Hg HCO3 28.4 H (21-28) mmol/L ABG pH 7.43 (7.35-7.45) ABG Total CO2 30.6 H (22-28) mmol/L ABG O2 Saturation 99.5 H (95-98) % ABG Base Excess 4.4 H (-2.0-3.0) mmol/L ABG Hemoglobin 9.0 L (11.7-17.4) g/dL ABG Carboxyhemoglobin 1.6 H (0.5-1.5) % POC ABG HHb (Measured) 0.5 (0.0-5.0) % ABG Methemoglobin 1.5 (0.0-3.0) % Fish Test Pos A-a O2 Difference 228.0 mm/Hg Respiratory Index 1.6 Hgb O2 Saturation 96.3 (95.0-98.0) % Mechanical Rate 16 FiO2 60.0 % Tidal Volume 400 PEEP 5 Sodium (132-148) mmol/L Potassium (3.6-5.2) mmol/L Chloride (98-107) mmol/L Carbon Dioxide (22-30) mmol/L Anion Gap (10-20) BUN (7-17) mg/dL Creatinine (0.7-1.2) MG/DL Est GFR ( Amer) Est GFR (Non-Af Amer) POC Glucose (mg/dL) 123 H 189 H (65-110) mg/dL Random Glucose (65-105) mg/dL Calcium (8.6-10.4) mg/dl Phosphorus (2.5-4.5) mg/dL Magnesium (1.6-2.3) mg/dL Total Bilirubin (0.2-1.3) mg/dL AST (14-36) U/L ALT (9-52) U/L Alkaline Phosphatase (38-126) U/L Total Protein (6.3-8.3) g/dL Albumin (3.5-5.0) g/dL Globulin (2.2-3.9) gm/dL Albumin/Globulin Ratio (1.0-2.1) Laboratory Results - last 24 hr 10/11/16 10/12/16 10/12/16 17:49 01:09 04:35 WBC RBC Hgb Hct MCV MCH MCHC RDW Plt Count MPV Neut % (Auto) Lymph % (Auto) [place] % (Auto) Eos % (Auto) Baso % (Auto) Neut # Lymph # [place] # Eos # Baso # Neutrophils % (Manual) Band Neutrophils % Lymphocytes % (Manual) Monocytes % (Manual) Platelet Estimate Poikilocytosis (manual Anisocytosis (manual) Tear Drop Cells Ovalocytes Schistocytes Puncture Site Rr pCO2 44 pO2 145 H HCO3 28.4 H ABG pH 7.43 ABG Total CO2 30.6 H ABG O2 Saturation 99.5 H ABG Base Excess 4.4 H ABG Hemoglobin 9.0 L ABG Carboxyhemoglobin 1.6 H POC ABG HHb (Measured) 0.5 ABG Methemoglobin 1.5 Fish Test Pos A-a O2 Difference 228.0 Respiratory Index 1.6 Hgb O2 Saturation 96.3 Mechanical Rate 16 FiO2 60.0 Tidal Volume 400 PEEP 5 Sodium Potassium Chloride Carbon Dioxide Anion Gap BUN Creatinine Est GFR ( Amer) Est GFR (Non-Af Amer) POC Glucose (mg/dL) 189 H 123 H Random Glucose Calcium Phosphorus Magnesium Total Bilirubin AST ALT Alkaline Phosphatase Total Protein Albumin Globulin Albumin/Globulin Ratio 10/12/16 10/12/16 10/12/16 05:53 06:36 11:29 WBC 10.2 RBC 2.94 L Hgb 8.7 L Hct 26.8 L MCV 91.4 MCH 29.7 MCHC 32.5 L RDW 14.9 H Plt Count 98 L MPV 10.6 Neut % (Auto) 87.9 H Lymph % (Auto) 6.0 L [place] % (Auto) 5.7 Eos % (Auto) 0.2 Baso % (Auto) 0.2 Neut # 9.0 H Lymph # 0.6 L [place] # 0.6 Eos # 0.0 Baso # 0.0 Neutrophils % (Manual) 87 H Band Neutrophils % 2 Lymphocytes % (Manual) 7 L Monocytes % (Manual) 4 Platelet Estimate Decreased L Poikilocytosis (manual Slight Anisocytosis (manual) Slight Tear Drop Cells Slight Ovalocytes Slight Schistocytes Slight Puncture Site pCO2 pO2 HCO3 ABG pH ABG Total CO2 ABG O2 Saturation ABG Base Excess ABG Hemoglobin ABG Carboxyhemoglobin POC ABG HHb (Measured) ABG Methemoglobin Fish Test A-a O2 Difference Respiratory Index Hgb O2 Saturation Mechanical Rate FiO2 Tidal Volume PEEP Sodium 145 Potassium 3.2 L Chloride 109 H Carbon Dioxide 28 Anion Gap 10 BUN 26 H Creatinine 1.2 Est GFR ( Amer) 52 Est GFR (Non-Af Amer) 43 POC Glucose (mg/dL) 110 126 H Random Glucose 95 Calcium 7.4 L Phosphorus 3.1 Magnesium 1.9 Total Bilirubin 0.3 AST 19 ALT 44 Alkaline Phosphatase 40 Total Protein 3.9 L Albumin 1.9 L Globulin 2.0 L Albumin/Globulin Ratio 1.0 Fingerstick Blood Sugar Results: 110 Review of Systems - Review of Systems Systems not reviewed;Unavailable: Intubated Critical Care Progress Note - Ventilator Checklist Head of Bed 30 Degrees: Yes Daily Sedation Vacation: Yes PUD Prophalyxis: Yes DVT Prophylaxis: Yes - Vent Settings MODE:: PRVC Assessment/Plan (1) Acute respiratory failure with hypoxia and hypercarbia Current Visit: Yes Status: Resolved Comment: Patient was reintubated Continue ventilatory support and reduce FiO2 as tolerated wean as tolerated Thoracentesis by IR Continue antibiotics IV steroids and nebulizer treatment Seen by GI for colonic distention (2) COPD (chronic obstructive pulmonary disease) Current Visit: Yes Status: Chronic (3) Acute [place] Current Visit: Yes Status: Acute (4) Leucocytosis Current Visit: Yes Status: Acute
--- NOTE | 2016-10-12 18:38 | RAD ---
HISTORY: intubated, monitor effusions COMPARISON: Comparison chest dated 10/11/2016. FINDINGS: LUNGS: In situ ETT, tip of which lies approximately 5.57 cm above vicente. NGT is present, the tip of which overlies left upper quadrant of the abdomen just below the EG junction and should be advanced. No change right IJ central venous line tip in the SVC. Bilateral lower lobe opacities possibly representing some combination of atelectasis/infiltrate and effusions. PLEURA: No significant pleural effusion identified, no pneumothorax apparent. CARDIOVASCULAR: Heart appears borderline/ mildly enlarged OSSEOUS STRUCTURES: No significant abnormalities. VISUALIZED UPPER ABDOMEN: Normal. OTHER FINDINGS: None. IMPRESSION: Support lines and tubes as above. Bilateral lower lobe opacities possibly representing some combination of atelectasis/infiltrate and effusions.
--- NOTE | 2016-10-12 23:36 | CP.PCM.PN ---
Subjective - Date & Time of Evaluation Date of Evaluation: 10/12/16 Time of Evaluation: 13:04 - Subjective Subjective: Pt seen & evaluated today in ICU, Remains intubated on ventilatory support, FiO2 reduced to 50% Patient not tolerating weaning Abdominal distention noted Sedated Objective - Vital Signs/Intake and Output Vital Signs (last 24 hours): Temp Pulse Resp BP Pulse Ox 97.3 F L 75 16 108/54 L 100 10/12/16 20:00 10/12/16 22:30 10/12/16 22:30 10/12/16 22:01 10/12/16 22:30 Intake and Output: 10/12/16 10/13/16 18:59 06:59 Intake Total 587.5 112.5 Output Total 360 110 Balance 227.5 2.5 - Medications Medications: Current Medications Albuterol/Ipratropium (Duoneb 3 Mg/0.5 Mg (3 Ml) Ud) 3 ml INH RQ4 [facility] Last Admin: 10/12/16 19:22 Dose: 3 ml Aspirin (Aspirin Chewable) 81 mg PO DAILY [facility] Last Admin: 10/05/16 09:14 Dose: 81 mg Budesonide (Pulmicort Respules) 0.5 mg INH RQ12 [facility] Last Admin: 10/12/16 19:23 Dose: 0.5 mg Clopidogrel Bisulfate (Plavix) 75 mg PO DAILY [facility] Last Admin: 10/05/16 09:14 Dose: 75 mg Diltiazem HCl (Cardizem) 60 mg GT QID [facility] Last Admin: 10/12/16 21:07 Dose: 60 mg Enoxaparin Sodium (Lovenox) 40 mg SC DAILY [facility] Last Admin: 10/05/16 09:14 Dose: 40 mg Famotidine (Pepcid) 20 mg IVP DAILY [facility] Last Admin: 10/12/16 10:31 Dose: 20 mg Doxycycline Hyclate 100 mg/ (Sodium Chloride) 100 mls @ 100 mls/hr IVPB Q12H [facility] Last Admin: 10/12/16 17:06 Dose: 100 mls/hr Propofol (Diprivan) 100 mls @ 2.097 mls/hr IV .Q24H PRN; Protocol; 5 MCG/KG/MIN PRN Reason: TITRATE PER MD ORDER Last Admin: 10/12/16 07:01 Dose: 6.292 mls/hr Piperacillin Sod/Tazobactam Sod (Zosyn 2.25 Gm Iv Premix) 50 mls @ 100 mls/hr IVPB Q8H [facility] Last Admin: 10/12/16 18:29 Dose: 100 mls/hr Insulin Human Regular (Novolin R) 0 unit SC Q6H [facility] PRN Reason: Protocol Last Admin: 10/12/16 17:01 Dose: Not Given Lisinopril (Zestril) 20 mg NG BID [facility] Last Admin: 10/12/16 17:00 Dose: Not Given Methylprednisolone (Solu-Medrol) 20 mg IV DAILY [facility] Last Admin: 10/12/16 10:31 Dose: 20 mg Polyethylene Glycol (Miralax) 17 gm PO DAILY [facility] Last Admin: 10/12/16 10:28 Dose: Not Given Rosuvastatin Calcium (Crestor) 10 mg PO HS [facility] Last Admin: 10/12/16 21:07 Dose: 10 mg - Labs Labs: 10/12/16 06:36 10/12/16 06:36 PT 12.3 SECONDS (9.7-12.2) H 10/06/16 01:34 INR 1.1 10/06/16 01:34 APTT 27 SECONDS (21-34) 10/06/16 01:34 - Constitutional Appears: No Acute Distress, Chronically Ill - Eye Exam Eye Exam: EOMI, Normal appearance, PERRL Pupil Exam: NORMAL ACCOMODATION, PERRL - Respiratory Exam Respiratory Exam: Decreased Breath Sounds, Rales - Cardiovascular Exam Cardiovascular Exam: REGULAR RHYTHM, +S1, +S2. absent: Murmur - Psychiatric Exam Additional comments: sedated Assessment and Plan (1) Acute respiratory failure with hypoxia and hypercarbia Status: Resolved (2) Altered mental status Status: Resolved (3) Acute [place] Status: Acute (4) Dehydration Status: Acute
[2016-10-13] MEDS: Piperacill/Tazo 2.25gm in Dex 50 ML IVPB SCH ×2 (02:12→10:14)
[2016-10-13] MEDS: Albuterol-Ipratrop 3 mg / 0.5 (3 ml) UD INH SCH ×6 (03:16→19:12)
[2016-10-13 06:02] LABS: ABG MECHANICAL RATE 16; ARTERIAL BLOOD HGB O2 SAT 96.3 % (95.0-98.0); ATERIAL BLOOD GAS PEEP 5; CARBOXYHEMOGLOBIN 1.8 % (0.5-1.5); DRAW SITE RB; HHB 0.8 % (0.0-5.0); METHEMOGLOBIN 1.1 % (0.0-3.0)
[2016-10-13] MEDS: (Novolin R) Insulin Human Regular 100 units/ml vial SC SCH ×3 (06:43→13:13)
[2016-10-13 06:47] LABS: BASO % 0.5 % (0.0-2.0); EOS % 0.3 % (0.0-4.0); HEMATOCRIT 26.8 % (34.0-47.0); LYMPH # 0.7 K/uL (1.0-4.3); LYMPH % 7.4 % (20.0-40.0); MEAN CELL VOLUME 92.1 fL (81.0-99.0); MEAN CORPUSCULAR HEMOGLOBIN 30.5 pg (27.0-31.0); MEAN CORPUSCULAR HGB CONC 33.1 g/dL (33.0-37.0); MEAN PLATELET VOLUME 10.4 fL (7.2-11.7); MONO # 0.5 K/uL (0.0-0.8); MONO % 5.2 % (0.0-10.0); PLATELET COUNT 100 K/uL (130-400); RED CELL DISTRIBUTION WIDTH 14.7 % (11.5-14.5); WHITE BLOOD COUNT 8.8 K/uL (4.8-10.8)
[2016-10-13 06:51] LABS: POTASSIUM 3.1 mmol/L (3.6-5.2)
[2016-10-13 06:53] LABS: ALB/GLOB RATIO 0.9 (1.0-2.1); BILIRUBIN,TOTAL 0.4 mg/dL (0.2-1.3)
[2016-10-13 06:54] LABS: PHOSPHOROUS 3.4 mg/dL (2.5-4.5)
[2016-10-13 07:11] LABS: CALCIUM 7.5 mg/dl (8.6-10.4)
[2016-10-13 07:12] LABS: MAGNESIUM 1.8 mg/dL (1.6-2.3)
[2016-10-13] MEDS: Budesonide 0.5 mg/2 ml Inhal Susp UD INH SCH ×2 (07:43→19:13)
[2016-10-13] MEDS ORDERED: metroNIDAZOLE IV 500 mg/100 ml 100 ML IVPB SCH (07:45)
[2016-10-13] MEDS: metroNIDAZOLE IV 500 mg/100 ml 100 ML IVPB SCH ×2 (09:25→17:56)
[2016-10-13 09:40] LABS: NEUTROPHIL 88 % (50-75); TOTAL CELLS COUNTED 100
[2016-10-13] MEDS: POLYETHYLENE GLYCOL 3350 17 GM/Dose PACKET PO SCH (09:41)
[2016-10-13] MEDS: MethylPREDNISolone 40 mg Vial IV SCH (09:42)
--- NOTE | 2016-10-13 11:17 | CP.PCM.PN ---
Subjective - Date & Time of Evaluation Date of Evaluation: 10/13/16 Time of Evaluation: 11:00 - Subjective Subjective: F/U colon distention, anemia No report of RB, melena, nausea, vomiting, chills, hematuria, hemoptysis, SZ, tremor, jaundice Objective - Vital Signs/Intake and Output Vital Signs (last 24 hours): Temp Pulse Resp BP Pulse Ox 97.9 F 59 L 16 104/65 100 10/13/16 08:00 10/13/16 08:00 10/13/16 08:00 10/13/16 08:00 10/13/16 08:00 Intake and Output: 10/13/16 10/13/16 06:59 18:59 Intake Total 400.0 12.5 Output Total 470 50 Balance -70.0 -37.5 - Medications Medications: Current Medications Albuterol/Ipratropium (Duoneb 3 Mg/0.5 Mg (3 Ml) Ud) 3 ml INH RQ4 [facility] Last Admin: 10/13/16 07:43 Dose: 3 ml Aspirin (Aspirin Chewable) 81 mg PO DAILY [facility] Last Admin: 10/05/16 09:14 Dose: 81 mg Budesonide (Pulmicort Respules) 0.5 mg INH RQ12 [facility] Last Admin: 10/13/16 07:43 Dose: 0.5 mg Clopidogrel Bisulfate (Plavix) 75 mg PO DAILY [facility] Last Admin: 10/05/16 09:14 Dose: 75 mg Diltiazem HCl (Cardizem) 60 mg GT QID [facility] Last Admin: 10/13/16 09:18 Dose: Not Given Enoxaparin Sodium (Lovenox) 40 mg SC DAILY [facility] Last Admin: 10/05/16 09:14 Dose: 40 mg Famotidine (Pepcid) 20 mg IVP DAILY [facility] Last Admin: 10/13/16 09:43 Dose: 20 mg Propofol (Diprivan) 100 mls @ 2.097 mls/hr IV .Q24H PRN; Protocol; 5 MCG/KG/MIN PRN Reason: TITRATE PER MD ORDER Last Admin: 10/13/16 06:30 Dose: 12.5 mls/hr Piperacillin Sod/Tazobactam Sod (Zosyn 2.25 Gm Iv Premix) 50 mls @ 100 mls/hr IVPB Q8H [facility] Last Admin: 10/13/16 02:12 Dose: 100 mls/hr Doxycycline Hyclate 100 mg/ (Sodium Chloride) 100 mls @ 100 mls/hr IVPB Q12H [facility] Last Admin: 10/13/16 09:24 Dose: 100 mls/hr Metronidazole (Flagyl) 100 mls @ 100 mls/hr IVPB Q8H [facility] Last Admin: 10/13/16 09:25 Dose: 100 mls/hr Insulin Human Regular (Novolin R) 0 unit SC Q6H [facility] PRN Reason: Protocol Last Admin: 10/13/16 06:43 Dose: Not Given Lisinopril (Zestril) 20 mg NG BID [facility] Last Admin: 10/13/16 09:19 Dose: Not Given Methylprednisolone (Solu-Medrol) 20 mg IV DAILY [facility] Last Admin: 10/13/16 09:42 Dose: 20 mg Polyethylene Glycol (Miralax) 17 gm PO DAILY [facility] Last Admin: 10/13/16 09:41 Dose: Not Given Rosuvastatin Calcium (Crestor) 10 mg PO HS [facility] Last Admin: 10/12/16 21:07 Dose: 10 mg - Labs Labs: 10/13/16 06:28 10/13/16 06:28 PT 12.3 SECONDS (9.7-12.2) H 10/06/16 01:34 INR 1.1 10/06/16 01:34 APTT 27 SECONDS (21-34) 10/06/16 01:34 - Respiratory Exam Respiratory Exam: Rhonchi - Cardiovascular Exam Cardiovascular Exam: RRR - GI/Abdominal Exam GI & Abdominal Exam: Distended, Normal Bowel Sounds. absent: Tenderness - Extremities Exam Extremities Exam: Pedal Edema - Neurological Exam Neurological Exam: Awake. absent: Oriented x3 - Skin Skin Exam: Petechiae Assessment and Plan (1) Respiratory failure Status: Chronic (2) Abdominal distension Assessment & Plan: Colon distention. KUB 10/11 shows mild dilatation. Status: Acute (3) Acute [place] Status: Acute (4) Atrial fibrillation Status: Acute (5) Dysphagia Status: Acute (6) Hypernatremia Status: Acute (7) Leucocytosis Status: Acute (8) Anemia Assessment & Plan: Hb about the same. Status: Acute
[2016-10-13] MEDS ORDERED: Potassium Chloride 20 mEq ER Tab PO ONE (12:51)
--- NOTE | 2016-10-13 12:59 | RAD ---
HISTORY: follow up COMPARISON: Comparison chest 10/12/2016. FINDINGS: LUNGS: No hazy opacity left lung consistent with large layering effusion. Small right-sided effusion is also present. Mild bibasilar atelectasis. PLEURA: No significant pleural effusion identified, no pneumothorax apparent. CARDIOVASCULAR: . Aorta is ectatic and uncoiled. Heart size within range of normal. OSSEOUS STRUCTURES: No significant abnormalities. VISUALIZED UPPER ABDOMEN: Normal. OTHER FINDINGS: In situ ETT, tip of which lies 4.3 cm above vicente. Right subclavian central venous line with tip in the SVC unchanged. In situ NGT, the tip of which included overlies right parasagittal upper quadrant of the abdomen. IMPRESSION: Support lines and tubes as above. Large layering left effusion. Small right-sided effusion. Bibasilar atelectasis
--- NOTE | 2016-10-13 19:10 | CP.CCUPN ---
CCU Subjective - Physician Review Events Since Last Encounter (Free Text): 10/13/16 19:05 no change in clinical status, patient still intubated and sedated on vent. CCU Objective - Vital Signs / Intake & Output Vital Signs (Last 4 hours): Vital Signs Temp Pulse Resp BP Pulse Ox 10/13/16 18:00 65 15 162/63 H 100 10/13/16 17:00 63 16 150/66 100 10/13/16 16:00 97.9 F 63 16 101/54 L 99 Intake and Output (Last 8hrs): Intake & Output 10/13/16 10/13/16 10/13/16 06:59 14:59 22:59 Intake Total 250.0 377.5 230.0 Output Total 350 290 60 Balance -100.0 87.5 170.0 Weight 177 lb Intake: Intake, IV Amount 250.0 337.5 150.0 Right Proximal Port 100.0 87.5 50.0 Subclavian Right Medial Port 150 250 100 Subclavian Tube Feeding 40 80 Output: Urine 350 290 60 Urethral (Perez) 350 290 60 - Physical Exam Head: Positive for: Atraumatic, Normocephalic, Other (ET Tube in place) Pupils: Positive for: PERRL Extroacular Muscles: Positive for: EOMI Conjunctiva: Positive for: Injected Mouth: Positive for: Dry Nose (Internal): Positive for: Other (Nasal packing in place) Neck: Positive for: Normal Range of Motion Respiratory/Chest: Positive for: Clear to Auscultation, Good Air Exchange, Rales. Negative for: Respiratory Distress, Accessory Muscle Use Cardiovascular: Positive for: Normal S1, S2, Irregular Rhythm. Negative for: Regular Rate and Rhythm, Murmurs Abdomen: Positive for: Distention, Normal Bowel Sounds. Negative for: Peritoneal Signs, Rebound Genitourinary/Pelvic Exam: Positive for: Other (perez in place) Upper Extremity: Positive for: Normal Inspection. Negative for: Cyanosis, Edema Lower Extremity: Positive for: Normal Inspection. Negative for: Edema, CALF TENDERNESS Neurological: Positive for: Other (sedated) Skin: Positive for: Warm, Dry Psychiatric: Positive for: Alert - Medications Active Medications: Active Medications Generic Name Dose Route Start Last Admin Trade Name Freq PRN Reason Stop Dose Admin Albuterol/Ipratropium 3 ml 10/08/16 20:00 10/13/16 15:57 Duoneb 3 Mg/0.5 Mg (3 Ml) Ud INH 3 ml RQ4 KAILA Administration Aspirin 81 mg 09/24/16 18:30 10/05/16 09:14 Aspirin Chewable PO 81 mg DAILY KAILA Administration Budesonide 0.5 mg 10/02/16 20:00 10/13/16 07:43 Pulmicort Respules INH 0.5 mg RQ12 KAILA Administration Clopidogrel Bisulfate 75 mg 09/26/16 10:00 10/05/16 09:14 Plavix PO 75 mg DAILY KAILA Administration Diltiazem HCl 60 mg 10/10/16 14:00 10/13/16 17:54 Cardizem GT Not Given QID KAILA Enoxaparin Sodium 40 mg 09/26/16 13:00 10/05/16 09:14 Lovenox SC 40 mg DAILY KAILA Administration Famotidine 20 mg 10/08/16 10:00 10/13/16 09:43 Pepcid IVP 20 mg DAILY KAILA Administration Doxycycline Hyclate 100 mg/ 100 mls @ 100 mls/hr 10/13/16 09:00 10/13/16 09:24 Sodium Chloride IVPB 100 mls/hr Q12H KAILA Administration Metronidazole 100 mls @ 100 mls/hr 10/13/16 08:00 10/13/16 17:56 Flagyl IVPB 100 mls/hr Q8H KAILA Administration Insulin Human Regular 0 unit 10/09/16 00:01 10/13/16 13:13 Novolin R SC Not Given Q6H [facility] Protocol Lisinopril 20 mg 10/05/16 18:00 10/13/16 17:54 Zestril NG Not Given BID KAILA Methylprednisolone 20 mg 10/07/16 10:00 10/13/16 09:42 Solu-Medrol IV 20 mg DAILY KAILA Administration Midazolam HCl 2 mg 10/13/16 12:35 Versed Inj IVP Q4H PRN Agitation Polyethylene Glycol 17 gm 10/06/16 10:00 10/13/16 09:41 Miralax PO Not Given DAILY [facility] Rosuvastatin Calcium 10 mg 09/23/16 22:00 10/12/16 21:07 Crestor PO 10 mg HS KAILA Administration - Patient Studies Lab Studies: Lab Studies 10/13/16 10/13/16 10/13/16 Range/Units 12:41 06:28 06:12 WBC 8.8 (4.8-10.8) K/uL RBC 2.91 L (3.80-5.20) Mil/uL Hgb 8.9 L (11.0-16.0) g/dL Hct 26.8 L (34.0-47.0) % MCV 92.1 (81.0-99.0) fL MCH 30.5 (27.0-31.0) pg MCHC 33.1 (33.0-37.0) g/dL RDW 14.7 H (11.5-14.5) % Plt Count 100 L (130-400) K/uL MPV 10.4 (7.2-11.7) fL Neut % (Auto) 86.6 H (50.0-75.0) % Lymph % (Auto) 7.4 L (20.0-40.0) % Weber % (Auto) 5.2 (0.0-10.0) % Eos % (Auto) 0.3 (0.0-4.0) % Baso % (Auto) 0.5 (0.0-2.0) % Neut # 7.7 H (1.8-7.0) K/uL Lymph # 0.7 L (1.0-4.3) K/uL Weber # 0.5 (0.0-0.8) K/uL Eos # 0.0 (0.0-0.7) K/uL Baso # 0.0 (0.0-0.2) K/uL Neutrophils % (Manual) 88 H (50-75) % Band Neutrophils % 2 (0-2) % Lymphocytes % (Manual) 7 L (20-40) % Monocytes % (Manual) 3 (0-10) % Platelet Estimate Decreased L (NORMAL) Hypochromasia (manual) Slight Poikilocytosis (manual Slight Anisocytosis (manual) Slight Tear Drop Cells Slight Ovalocytes Slight Schistocytes Slight Puncture Site pCO2 (35-45) mm/Hg pO2 (80-100) mm/Hg HCO3 (21-28) mmol/L ABG pH (7.35-7.45) ABG Total CO2 (22-28) mmol/L ABG O2 Saturation (95-98) % ABG Base Excess (-2.0-3.0) mmol/L ABG Hemoglobin (11.7-17.4) g/dL ABG Carboxyhemoglobin (0.5-1.5) % POC ABG HHb (Measured) (0.0-5.0) % ABG Methemoglobin (0.0-3.0) % Fish Test A-a O2 Difference mm/Hg Respiratory Index Hgb O2 Saturation (95.0-98.0) % Mechanical Rate FiO2 % Tidal Volume PEEP Sodium 144 (132-148) mmol/L Potassium 3.1 L (3.6-5.2) mmol/L Chloride 111 H (98-107) mmol/L Carbon Dioxide 25 (22-30) mmol/L Anion Gap 11 (10-20) BUN 27 H (7-17) mg/dL Creatinine 1.2 (0.7-1.2) MG/DL Est GFR ( Amer) 52 Est GFR (Non-Af Amer) 43 POC Glucose (mg/dL) 129 H 98 (65-110) mg/dL Random Glucose 82 (65-105) mg/dL Calcium 7.5 L (8.6-10.4) mg/dl Phosphorus 3.4 (2.5-4.5) mg/dL Magnesium 1.8 (1.6-2.3) mg/dL Total Bilirubin 0.4 (0.2-1.3) mg/dL AST 29 (14-36) U/L ALT 46 (9-52) U/L Alkaline Phosphatase 40 (38-126) U/L Total Protein 4.0 L (6.3-8.3) g/dL Albumin 1.9 L (3.5-5.0) g/dL Globulin 2.1 L (2.2-3.9) gm/dL Albumin/Globulin Ratio 0.9 L (1.0-2.1) 10/13/16 10/12/16 Range/Units 05:07 23:47 WBC (4.8-10.8) K/uL RBC (3.80-5.20) Mil/uL Hgb (11.0-16.0) g/dL Hct (34.0-47.0) % MCV (81.0-99.0) fL MCH (27.0-31.0) pg MCHC (33.0-37.0) g/dL RDW (11.5-14.5) % Plt Count (130-400) K/uL MPV (7.2-11.7) fL Neut % (Auto) (50.0-75.0) % Lymph % (Auto) (20.0-40.0) % Weber % (Auto) (0.0-10.0) % Eos % (Auto) (0.0-4.0) % Baso % (Auto) (0.0-2.0) % Neut # (1.8-7.0) K/uL Lymph # (1.0-4.3) K/uL Weber # (0.0-0.8) K/uL Eos # (0.0-0.7) K/uL Baso # (0.0-0.2) K/uL Neutrophils % (Manual) (50-75) % Band Neutrophils % (0-2) % Lymphocytes % (Manual) (20-40) % Monocytes % (Manual) (0-10) % Platelet Estimate (NORMAL) Hypochromasia (manual) Poikilocytosis (manual Anisocytosis (manual) Tear Drop Cells Ovalocytes Schistocytes Puncture Site Rb pCO2 42 (35-45) mm/Hg pO2 93 (80-100) mm/Hg HCO3 27.5 (21-28) mmol/L ABG pH 7.43 (7.35-7.45) ABG Total CO2 29.2 H (22-28) mmol/L ABG O2 Saturation 99.2 H (95-98) % ABG Base Excess 3.3 H (-2.0-3.0) mmol/L ABG Hemoglobin 8.9 L (11.7-17.4) g/dL ABG Carboxyhemoglobin 1.8 H (0.5-1.5) % POC ABG HHb (Measured) 0.8 (0.0-5.0) % ABG Methemoglobin 1.1 (0.0-3.0) % Fish Test Na A-a O2 Difference 211.0 mm/Hg Respiratory Index 2.3 Hgb O2 Saturation 96.3 (95.0-98.0) % Mechanical Rate 16 FiO2 50.0 % Tidal Volume 400 PEEP 5 Sodium (132-148) mmol/L Potassium (3.6-5.2) mmol/L Chloride (98-107) mmol/L Carbon Dioxide (22-30) mmol/L Anion Gap (10-20) BUN (7-17) mg/dL Creatinine (0.7-1.2) MG/DL Est GFR ( Amer) Est GFR (Non-Af Amer) POC Glucose (mg/dL) 104 (65-110) mg/dL Random Glucose (65-105) mg/dL Calcium (8.6-10.4) mg/dl Phosphorus (2.5-4.5) mg/dL Magnesium (1.6-2.3) mg/dL Total Bilirubin (0.2-1.3) mg/dL AST (14-36) U/L ALT (9-52) U/L Alkaline Phosphatase (38-126) U/L Total Protein (6.3-8.3) g/dL Albumin (3.5-5.0) g/dL Globulin (2.2-3.9) gm/dL Albumin/Globulin Ratio (1.0-2.1) Laboratory Results - last 24 hr 10/12/16 10/13/16 10/13/16 23:47 05:07 06:12 WBC RBC Hgb Hct MCV MCH MCHC RDW Plt Count MPV Neut % (Auto) Lymph % (Auto) Weber % (Auto) Eos % (Auto) Baso % (Auto) Neut # Lymph # Weber # Eos # Baso # Neutrophils % (Manual) Band Neutrophils % Lymphocytes % (Manual) Monocytes % (Manual) Platelet Estimate Hypochromasia (manual) Poikilocytosis (manual Anisocytosis (manual) Tear Drop Cells Ovalocytes Schistocytes Puncture Site Rb pCO2 42 pO2 93 HCO3 27.5 ABG pH 7.43 ABG Total CO2 29.2 H ABG O2 Saturation 99.2 H ABG Base Excess 3.3 H ABG Hemoglobin 8.9 L ABG Carboxyhemoglobin 1.8 H POC ABG HHb (Measured) 0.8 ABG Methemoglobin 1.1 Fish Test Na A-a O2 Difference 211.0 Respiratory Index 2.3 Hgb O2 Saturation 96.3 Mechanical Rate 16 FiO2 50.0 Tidal Volume 400 PEEP 5 Sodium Potassium Chloride Carbon Dioxide Anion Gap BUN Creatinine Est GFR ( Amer) Est GFR (Non-Af Amer) POC Glucose (mg/dL) 104 98 Random Glucose Calcium Phosphorus Magnesium Total Bilirubin AST ALT Alkaline Phosphatase Total Protein Albumin Globulin Albumin/Globulin Ratio 10/13/16 10/13/16 06:28 12:41 WBC 8.8 RBC 2.91 L Hgb 8.9 L Hct 26.8 L MCV 92.1 MCH 30.5 MCHC 33.1 RDW 14.7 H Plt Count 100 L MPV 10.4 Neut % (Auto) 86.6 H Lymph % (Auto) 7.4 L Weber % (Auto) 5.2 Eos % (Auto) 0.3 Baso % (Auto) 0.5 Neut # 7.7 H Lymph # 0.7 L Weber # 0.5 Eos # 0.0 Baso # 0.0 Neutrophils % (Manual) 88 H Band Neutrophils % 2 Lymphocytes % (Manual) 7 L Monocytes % (Manual) 3 Platelet Estimate Decreased L Hypochromasia (manual) Slight Poikilocytosis (manual Slight Anisocytosis (manual) Slight Tear Drop Cells Slight Ovalocytes Slight Schistocytes Slight Puncture Site pCO2 pO2 HCO3 ABG pH ABG Total CO2 ABG O2 Saturation ABG Base Excess ABG Hemoglobin ABG Carboxyhemoglobin POC ABG HHb (Measured) ABG Methemoglobin Fish Test A-a O2 Difference Respiratory Index Hgb O2 Saturation Mechanical Rate FiO2 Tidal Volume PEEP Sodium 144 Potassium 3.1 L Chloride 111 H Carbon Dioxide 25 Anion Gap 11 BUN 27 H Creatinine 1.2 Est GFR ( Amer) 52 Est GFR (Non-Af Amer) 43 POC Glucose (mg/dL) 129 H Random Glucose 82 Calcium 7.5 L Phosphorus 3.4 Magnesium 1.8 Total Bilirubin 0.4 AST 29 ALT 46 Alkaline Phosphatase 40 Total Protein 4.0 L Albumin 1.9 L Globulin 2.1 L Albumin/Globulin Ratio 0.9 L Fingerstick Blood Sugar Results: 104 Review of Systems - Review of Systems Systems not reviewed;Unavailable: Intubated Critical Care Progress Note - Ventilator Checklist Head of Bed 30 Degrees: Yes Daily Sedation Vacation: Yes Daily Assessment of Readiness to Wean: Yes Daily Spontaneous Breathing Trial: Yes PUD Prophalyxis: Yes DVT Prophylaxis: Yes Assessment/Plan (1) Respiratory failure Assessment and plan: 86-year-old female who was originally admitted for COPD exacerbation. hospital course complicated by recurrent intubations and one episode of severe epistaxis. Neuro: Sedated on vent with propofol drip, stopping propofol and starting Versed when necessary pushes. Pulm: Acute respiratory failure, COPD on Solu-Medrol. Will obtain CT chest abdomen and pelvis tomorrow, to better assess pneumonia. CV: Hemodynamically stable, A. fib rate controlled with Cardizem by mouth. Hem: Anemia of critical illness Renal: No acute issues Endo: No acute issues GI: Obtain CT abdomen and pelvis tomorrow to better assess obstruction, which is currently clinically not apparent. Starting Isosource at 20. ID: Empiric coverage for sepsis of unknown source, continue Flagyl and Doxy as patient's white count decreased on these 2 medications. DVT proph - Lovenox GI proph - Pepcid perez for strict I/O's during acute illness Code status - full code Crtical Care Time spent 35 minutes Multi-disciplinary rounds were performed with house staff, nursing, speech therapy, respiratory therapy, pharmacy and nutrition with integrated input from the primary team/attending and other consulting services. The documented time is cumulative and includes review of patient data/exams/labs/chart review and examination of the patient on rounds and throughout the day; time is exclusive of any procedures or teaching time. Current Visit: Yes Status: Chronic Priority: High
[2016-10-13] MEDS: Midazolam 2 MG/2 ML VIAL IVP PRN (21:49)
--- NOTE | 2016-10-13 22:20 | CP.PCM.PN ---
Subjective - Date & Time of Evaluation Date of Evaluation: 10/13/16 Time of Evaluation: 13:04 - Subjective Subjective: Pt ealuated at bedside in ICU, no change in clinical status, patient still intubated and sedated on vent. Objective - Vital Signs/Intake and Output Vital Signs (last 24 hours): Temp Pulse Resp BP Pulse Ox 97.9 F 65 15 162/63 H 100 10/13/16 16:00 10/13/16 18:00 10/13/16 18:00 10/13/16 18:00 10/13/16 18:00 Intake and Output: 10/13/16 10/14/16 18:59 06:59 Intake Total 607.5 Output Total 350 Balance 257.5 - Medications Medications: Current Medications Aspirin (Aspirin Chewable) 81 mg PO DAILY [facility] Last Admin: 10/05/16 09:14 Dose: 81 mg Budesonide (Pulmicort Respules) 0.5 mg INH RQ12 [facility] Last Admin: 10/13/16 19:13 Dose: 0.5 mg Clopidogrel Bisulfate (Plavix) 75 mg PO DAILY [facility] Last Admin: 10/05/16 09:14 Dose: 75 mg Diltiazem HCl (Cardizem) 60 mg GT QID [facility] Last Admin: 10/13/16 21:49 Dose: 60 mg Enoxaparin Sodium (Lovenox) 40 mg SC DAILY [facility] Last Admin: 10/05/16 09:14 Dose: 40 mg Famotidine (Pepcid) 20 mg IVP DAILY [facility] Last Admin: 10/13/16 09:43 Dose: 20 mg Doxycycline Hyclate 100 mg/ (Sodium Chloride) 100 mls @ 100 mls/hr IVPB Q12H [facility] Last Admin: 10/13/16 21:49 Dose: 100 mls/hr Metronidazole (Flagyl) 100 mls @ 100 mls/hr IVPB Q8H [facility] Last Admin: 10/13/16 17:56 Dose: 100 mls/hr Insulin Human Regular (Novolin R) 0 unit SC Q6H [facility] PRN Reason: Protocol Last Admin: 10/13/16 13:13 Dose: Not Given Lisinopril (Zestril) 20 mg NG BID [facility] Last Admin: 10/13/16 17:54 Dose: Not Given Methylprednisolone (Solu-Medrol) 20 mg IV DAILY [facility] Last Admin: 10/13/16 09:42 Dose: 20 mg Midazolam HCl (Versed Inj) 2 mg IVP Q4H PRN PRN Reason: Agitation Last Admin: 10/13/16 21:49 Dose: 2 mg Polyethylene Glycol (Miralax) 17 gm PO DAILY [facility] Last Admin: 10/13/16 09:41 Dose: Not Given Rosuvastatin Calcium (Crestor) 10 mg PO HS [facility] Last Admin: 10/13/16 21:49 Dose: 10 mg - Labs Labs: 10/13/16 06:28 10/13/16 06:28 PT 12.3 SECONDS (9.7-12.2) H 10/06/16 01:34 INR 1.1 10/06/16 01:34 APTT 27 SECONDS (21-34) 10/06/16 01:34 - Constitutional Appears: No Acute Distress, Chronically Ill - Head Exam Head Exam: ATRAUMATIC, NORMAL INSPECTION, NORMOCEPHALIC - Eye Exam Eye Exam: EOMI, Normal appearance, PERRL Pupil Exam: NORMAL ACCOMODATION, PERRL - Respiratory Exam Respiratory Exam: Clear to Ausculation Bilateral, NORMAL BREATHING PATTERN - Cardiovascular Exam Cardiovascular Exam: REGULAR RHYTHM, +S1, +S2. absent: Murmur - GI/Abdominal Exam GI & Abdominal Exam: Soft, Normal Bowel Sounds. absent: Tenderness Assessment and Plan (1) Acute respiratory failure with hypoxia and hypercarbia Status: Resolved (2) Altered mental status Status: Resolved (3) Acute VT Status: Acute (4) Dehydration Status: Acute
[2016-10-14] MEDS: metroNIDAZOLE IV 500 mg/100 ml 100 ML IVPB SCH ×4 (00:07→23:33)
[2016-10-14] MEDS: (Novolin R) Insulin Human Regular 100 units/ml vial SC SCH ×4 (00:17→18:43)
[2016-10-14] MEDS: Midazolam 2 MG/2 ML VIAL IVP PRN ×2 (02:00→06:54)
[2016-10-14 05:55] LABS: ABG ALLEN TEST POS; ABG MECHANICAL RATE 16; ARTERIAL BLOOD HGB O2 SAT 96.6 % (95.0-98.0); ATERIAL BLOOD GAS PEEP 5; CARBOXYHEMOGLOBIN 1.9 % (0.5-1.5); DRAW SITE RR; HHB 0.4 % (0.0-5.0); METHEMOGLOBIN 1.1 % (0.0-3.0)
[2016-10-14 06:49] LABS: BASO % 0.5 % (0.0-2.0); EOS % 0.3 % (0.0-4.0); HEMATOCRIT 27.8 % (34.0-47.0); LYMPH # 0.6 K/uL (1.0-4.3); LYMPH % 6.2 % (20.0-40.0); MEAN CELL VOLUME 91.5 fL (81.0-99.0); MEAN CORPUSCULAR HEMOGLOBIN 30.1 pg (27.0-31.0); MEAN CORPUSCULAR HGB CONC 32.9 g/dL (33.0-37.0); MEAN PLATELET VOLUME 10.5 fL (7.2-11.7); MONO # 0.5 K/uL (0.0-0.8); MONO % 4.8 % (0.0-10.0); PLATELET COUNT 103 K/uL (130-400); RED CELL DISTRIBUTION WIDTH 14.9 % (11.5-14.5); WHITE BLOOD COUNT 9.7 K/uL (4.8-10.8)
[2016-10-14 07:00] LABS: POTASSIUM 3.1 mmol/L (3.6-5.2)
[2016-10-14 07:02] LABS: BILIRUBIN,TOTAL 0.3 mg/dL (0.2-1.3); TOTAL PROTEIN 4.3 g/dL (6.3-8.3)
[2016-10-14 07:03] LABS: CALCIUM 7.5 mg/dl (8.6-10.4); MAGNESIUM 1.7 mg/dL (1.6-2.3); PHOSPHOROUS 3.3 mg/dL (2.5-4.5)
[2016-10-14] MEDS: Budesonide 0.5 mg/2 ml Inhal Susp UD INH SCH ×2 (07:35→19:31)
[2016-10-14 08:57] LABS: NEUTROPHIL 88 % (50-75); TOTAL CELLS COUNTED 100
[2016-10-14] MEDS: Potassium Chloride 20 mEq 100 ML IVPB SCH ×3 (10:00→12:00)
--- NOTE | 2016-10-14 10:51 | CP.PCM.PN ---
Subjective - Date & Time of Evaluation Date of Evaluation: 10/14/16 Time of Evaluation: 09:30 - Subjective Subjective: Patient seen and examined Awake and responsive Remains intubated on ventilatory support Afebrile Tolerating feeding Objective - Vital Signs/Intake and Output Vital Signs (last 24 hours): Temp Pulse Resp BP Pulse Ox 97.6 F 72 18 132/74 100 10/14/16 04:00 10/14/16 06:00 10/14/16 06:00 10/14/16 06:00 10/14/16 06:00 Intake and Output: 10/14/16 10/14/16 06:59 18:59 Intake Total 560 120 Output Total 480 175 Balance 80 -55 - Medications Medications: Current Medications Aspirin (Aspirin Chewable) 81 mg PO DAILY [facility] Last Admin: 10/05/16 09:14 Dose: 81 mg Budesonide (Pulmicort Respules) 0.5 mg INH RQ12 [facility] Last Admin: 10/14/16 07:35 Dose: 0.5 mg Clopidogrel Bisulfate (Plavix) 75 mg PO DAILY [facility] Last Admin: 10/05/16 09:14 Dose: 75 mg Diltiazem HCl (Cardizem) 60 mg GT QID [facility] Last Admin: 10/13/16 21:49 Dose: 60 mg Enoxaparin Sodium (Lovenox) 40 mg SC DAILY [facility] Last Admin: 10/05/16 09:14 Dose: 40 mg Famotidine (Pepcid) 20 mg IVP DAILY [facility] Last Admin: 10/13/16 09:43 Dose: 20 mg Doxycycline Hyclate 100 mg/ (Sodium Chloride) 100 mls @ 100 mls/hr IVPB Q12H [facility] Last Admin: 10/13/16 21:49 Dose: 100 mls/hr Metronidazole (Flagyl) 100 mls @ 100 mls/hr IVPB Q8H [facility] Last Admin: 10/14/16 00:07 Dose: 100 mls/hr Potassium Chloride (Potassium Chloride 20 Meq/100 Ml) 100 mls @ 50 mls/hr IVPB Q2H [facility] Stop: 10/14/16 14:59 Insulin Human Regular (Novolin R) 0 unit SC Q6H [facility] PRN Reason: Protocol Last Admin: 10/14/16 07:03 Dose: 2 unit Lisinopril (Zestril) 20 mg NG BID [facility] Last Admin: 10/13/16 17:54 Dose: Not Given Methylprednisolone (Solu-Medrol) 20 mg IV DAILY [facility] Last Admin: 10/13/16 09:42 Dose: 20 mg Midazolam HCl (Versed Inj) 2 mg IVP Q4H PRN PRN Reason: Agitation Last Admin: 10/14/16 06:54 Dose: 2 mg Polyethylene Glycol (Miralax) 17 gm PO DAILY [facility] Last Admin: 10/13/16 09:41 Dose: Not Given Rosuvastatin Calcium (Crestor) 10 mg PO HS [facility] Last Admin: 10/13/16 21:49 Dose: 10 mg - Labs Labs: 10/14/16 06:39 10/14/16 06:39 PT 12.3 SECONDS (9.7-12.2) H 10/06/16 01:34 INR 1.1 10/06/16 01:34 APTT 27 SECONDS (21-34) 10/06/16 01:34 - Head Exam Head Exam: ATRAUMATIC, NORMOCEPHALIC - ENT Exam ENT Exam: Mucous Membranes Moist - Neck Exam Neck Exam: Normal Inspection - Respiratory Exam Respiratory Exam: Decreased Breath Sounds - Cardiovascular Exam Cardiovascular Exam: REGULAR RHYTHM - GI/Abdominal Exam GI & Abdominal Exam: Soft, Normal Bowel Sounds - Extremities Exam Extremities Exam: Pedal Edema Assessment and Plan (1) Acute respiratory failure with hypoxia and hypercarbia Assessment & Plan: WEAN tolerated Thoracentesis for left pleural effusion by IR Continue antibiotics, nebulizer treatment and steroids Status: Resolved (2) COPD (chronic obstructive pulmonary disease) Status: Chronic (3) Acute KS Status: Acute (4) Leucocytosis Status: Acute
[2016-10-14] MEDS: POLYETHYLENE GLYCOL 3350 17 GM/Dose PACKET PO SCH (11:07)
[2016-10-14] MEDS: MethylPREDNISolone 40 mg Vial IV SCH (11:09)
--- NOTE | 2016-10-14 15:46 | CP.CCUPN ---
<Katarzyna Hearn - Last Filed: 10/14/16 15:43> CCU Subjective - Physician Review Subjective (Free Text): 10/07/16 12:24 Patient was seen and examined in no acute distress. No acute events overnight. Packing remains in place. Patient appears more lethargic today at times as compared to her normal baseline. Patient was extubated 10/02/16 with O2 saturation in high 90s on venti mask. The patient has passed a swallow evaluation and eating though minimally. Per nursing, patient has not had a BM in 5-6 days. The patient did not comply with ROS due to somnolence. 10/08/16 12:48 Pt seen and examined though increasingly lethargic on evaluation and as per nursing. Patient desaturated into the 80's in mild distress prompting the need for intubation. A ROS could not be obtained due to patient's lethargy 10/09/16 14:24 Pt seen and examined in no acute distress. Patient intubated 10/08/16 with TLC placed with no events per nursing. A ROS could not be obtained due to patient's lethargy. 10/10/16 21:06 Pt seen and examined in no acute distress. No events overnight per nursing. An ROS could not be obtained due to patient being intubated and sedated. 10/11/16 07:16 Pt seen and examined in no acute distress. Patient hemodynamically stable at this time. Patient being weaned off FiO2. Feeds held in light of abdominal xray findings suggestive of large ileus. An ROS could not be obtained due to patient being intubated and sedated. Sister present bedside. 10/14/16 15:43 Pt seen and examined in no acute distress. Patient alert and able to point and gesture towards fan in need of cool air. Patient able to gesture and wave at family present bedside as well. Patient tolerating CPAP. Patient to have thoracentesis today after consent is obtained. An ROS could not be obtained at this time due to patient being intubated. CCU Objective - Vital Signs / Intake & Output Intake and Output (Last 8hrs): Intake & Output 10/14/16 10/14/16 10/14/16 06:59 14:59 22:59 Intake Total 340 120 Output Total 320 175 Balance 20 -55 Weight 179 lb 14.355 oz Intake: Intake, IV Amount 100 Right Distal Port 100 Subclavian Tube Feeding 240 120 Output: Urine 320 175 Urethral (Perez) 320 175 - Physical Exam Head: Positive for: Atraumatic, Normocephalic, Other (ET Tube in place) Pupils: Positive for: PERRL Extroacular Muscles: Positive for: EOMI Conjunctiva: Positive for: Injected Mouth: Positive for: Dry Nose (Internal): Positive for: Other (Nasal packing in place) Neck: Positive for: Normal Range of Motion Respiratory/Chest: Positive for: Clear to Auscultation, Good Air Exchange, Rales. Negative for: Respiratory Distress, Accessory Muscle Use Cardiovascular: Positive for: Normal S1, S2, Irregular Rhythm. Negative for: Regular Rate and Rhythm, Murmurs Abdomen: Positive for: Distention, Normal Bowel Sounds. Negative for: Peritoneal Signs, Rebound Genitourinary/Pelvic Exam: Positive for: Other (perez in place) Upper Extremity: Positive for: Normal Inspection. Negative for: Cyanosis, Edema Lower Extremity: Positive for: Normal Inspection. Negative for: Edema, CALF TENDERNESS Neurological: Positive for: Other (sedated) Skin: Positive for: Warm, Dry Psychiatric: Positive for: Alert - Medications Active Medications: Active Medications Generic Name Dose Route Start Last Admin Trade Name Freq PRN Reason Stop Dose Admin Aspirin 81 mg 09/24/16 18:30 10/05/16 09:14 Aspirin Chewable PO 81 mg DAILY KAILA Administration Budesonide 0.5 mg 10/02/16 20:00 10/14/16 07:35 Pulmicort Respules INH 0.5 mg RQ12 KAILA Administration Clopidogrel Bisulfate 75 mg 09/26/16 10:00 10/05/16 09:14 Plavix PO 75 mg DAILY KAILA Administration Diltiazem HCl 60 mg 10/10/16 14:00 10/14/16 11:04 Cardizem GT 60 mg QID KAILA Administration Enoxaparin Sodium 40 mg 09/26/16 13:00 10/05/16 09:14 Lovenox SC 40 mg DAILY KAILA Administration Famotidine 20 mg 10/08/16 10:00 10/14/16 11:07 Pepcid IVP 20 mg DAILY KAILA Administration Doxycycline Hyclate 100 mg/ 100 mls @ 100 mls/hr 10/13/16 09:00 10/14/16 09:00 Sodium Chloride IVPB 100 mls/hr Q12H KAILA Administration Metronidazole 100 mls @ 100 mls/hr 10/13/16 08:00 10/14/16 08:00 Flagyl IVPB 100 mls/hr Q8H KAILA Administration Insulin Human Regular 0 unit 10/09/16 00:01 10/14/16 07:03 Novolin R SC 2 unit Q6H KAILA Administration Protocol Lisinopril 20 mg 10/05/16 18:00 10/14/16 11:10 Zestril NG 20 mg BID KAILA Administration Methylprednisolone 20 mg 10/07/16 10:00 10/14/16 11:09 Solu-Medrol IV 20 mg DAILY KAILA Administration Midazolam HCl 2 mg 10/13/16 12:35 10/14/16 06:54 Versed Inj IVP 2 mg Q4H PRN Administration Agitation Polyethylene Glycol 17 gm 10/06/16 10:00 10/14/16 11:07 Miralax PO 17 gm DAILY KAILA Administration Rosuvastatin Calcium 10 mg 09/23/16 22:00 10/13/16 21:49 Crestor PO 10 mg HS KAILA Administration - Patient Studies Lab Studies: Lab Studies 10/14/16 10/14/16 10/14/16 Range/Units 12:06 07:01 06:39 WBC 9.7 (4.8-10.8) K/uL RBC 3.04 L (3.80-5.20) Mil/uL Hgb 9.1 L (11.0-16.0) g/dL Hct 27.8 L (34.0-47.0) % MCV 91.5 (81.0-99.0) fL MCH 30.1 (27.0-31.0) pg MCHC 32.9 L (33.0-37.0) g/dL RDW 14.9 H (11.5-14.5) % Plt Count 103 L (130-400) K/uL MPV 10.5 (7.2-11.7) fL Neut % (Auto) 88.2 H (50.0-75.0) % Lymph % (Auto) 6.2 L (20.0-40.0) % Pacific % (Auto) 4.8 (0.0-10.0) % Eos % (Auto) 0.3 (0.0-4.0) % Baso % (Auto) 0.5 (0.0-2.0) % Neut # 8.5 H (1.8-7.0) K/uL Lymph # 0.6 L (1.0-4.3) K/uL Pacific # 0.5 (0.0-0.8) K/uL Eos # 0.0 (0.0-0.7) K/uL Baso # 0.0 (0.0-0.2) K/uL Neutrophils % (Manual) 88 H (50-75) % Lymphocytes % (Manual) 7 L (20-40) % Monocytes % (Manual) 5 (0-10) % Platelet Estimate Slightly decreased L (NORMAL) RBC Morphology Normal Puncture Site pCO2 (35-45) mm/Hg pO2 (80-100) mm/Hg HCO3 (21-28) mmol/L ABG pH (7.35-7.45) ABG Total CO2 (22-28) mmol/L ABG O2 Saturation (95-98) % ABG Base Excess (-2.0-3.0) mmol/L ABG Hemoglobin (11.7-17.4) g/dL ABG Carboxyhemoglobin (0.5-1.5) % POC ABG HHb (Measured) (0.0-5.0) % ABG Methemoglobin (0.0-3.0) % Fish Test A-a O2 Difference mm/Hg Respiratory Index Hgb O2 Saturation (95.0-98.0) % Mechanical Rate FiO2 % Tidal Volume PEEP Sodium 146 (132-148) mmol/L Potassium 3.1 L (3.6-5.2) mmol/L Chloride 112 H (98-107) mmol/L Carbon Dioxide 28 (22-30) mmol/L Anion Gap 9 L (10-20) BUN 30 H (7-17) mg/dL Creatinine 1.4 H (0.7-1.2) MG/DL Est GFR ( Amer) 43 Est GFR (Non-Af Amer) 36 POC Glucose (mg/dL) 152 H 177 H (65-110) mg/dL Random Glucose 122 H (65-105) mg/dL Calcium 7.5 L (8.6-10.4) mg/dl Phosphorus 3.3 (2.5-4.5) mg/dL Magnesium 1.7 (1.6-2.3) mg/dL Total Bilirubin 0.3 (0.2-1.3) mg/dL AST 33 (14-36) U/L ALT 51 (9-52) U/L Alkaline Phosphatase 50 (38-126) U/L Total Protein 4.3 L (6.3-8.3) g/dL Albumin 2.1 L (3.5-5.0) g/dL Globulin 2.2 (2.2-3.9) gm/dL Albumin/Globulin Ratio 1.0 (1.0-2.1) 10/14/16 10/14/16 Range/Units 05:11 00:03 WBC (4.8-10.8) K/uL RBC (3.80-5.20) Mil/uL Hgb (11.0-16.0) g/dL Hct (34.0-47.0) % MCV (81.0-99.0) fL MCH (27.0-31.0) pg MCHC (33.0-37.0) g/dL RDW (11.5-14.5) % Plt Count (130-400) K/uL MPV (7.2-11.7) fL Neut % (Auto) (50.0-75.0) % Lymph % (Auto) (20.0-40.0) % Pacific % (Auto) (0.0-10.0) % Eos % (Auto) (0.0-4.0) % Baso % (Auto) (0.0-2.0) % Neut # (1.8-7.0) K/uL Lymph # (1.0-4.3) K/uL Pacific # (0.0-0.8) K/uL Eos # (0.0-0.7) K/uL Baso # (0.0-0.2) K/uL Neutrophils % (Manual) (50-75) % Lymphocytes % (Manual) (20-40) % Monocytes % (Manual) (0-10) % Platelet Estimate (NORMAL) RBC Morphology Puncture Site Rr pCO2 42 (35-45) mm/Hg pO2 97 (80-100) mm/Hg HCO3 25.2 (21-28) mmol/L ABG pH 7.39 (7.35-7.45) ABG Total CO2 26.7 (22-28) mmol/L ABG O2 Saturation 99.6 H (95-98) % ABG Base Excess 0.3 (-2.0-3.0) mmol/L ABG Hemoglobin 9.0 L (11.7-17.4) g/dL ABG Carboxyhemoglobin 1.9 H (0.5-1.5) % POC ABG HHb (Measured) 0.4 (0.0-5.0) % ABG Methemoglobin 1.1 (0.0-3.0) % Fish Test Pos A-a O2 Difference 207.0 mm/Hg Respiratory Index 2.1 Hgb O2 Saturation 96.6 (95.0-98.0) % Mechanical Rate 16 FiO2 50.0 % Tidal Volume 400 PEEP 5 Sodium (132-148) mmol/L Potassium (3.6-5.2) mmol/L Chloride (98-107) mmol/L Carbon Dioxide (22-30) mmol/L Anion Gap (10-20) BUN (7-17) mg/dL Creatinine (0.7-1.2) MG/DL Est GFR ( Amer) Est GFR (Non-Af Amer) POC Glucose (mg/dL) 106 (65-110) mg/dL Random Glucose (65-105) mg/dL Calcium (8.6-10.4) mg/dl Phosphorus (2.5-4.5) mg/dL Magnesium (1.6-2.3) mg/dL Total Bilirubin (0.2-1.3) mg/dL AST (14-36) U/L ALT (9-52) U/L Alkaline Phosphatase (38-126) U/L Total Protein (6.3-8.3) g/dL Albumin (3.5-5.0) g/dL Globulin (2.2-3.9) gm/dL Albumin/Globulin Ratio (1.0-2.1) Laboratory Results - last 24 hr 10/14/16 10/14/16 10/14/16 00:03 05:11 06:39 WBC 9.7 RBC 3.04 L Hgb 9.1 L Hct 27.8 L MCV 91.5 MCH 30.1 MCHC 32.9 L RDW 14.9 H Plt Count 103 L MPV 10.5 Neut % (Auto) 88.2 H Lymph % (Auto) 6.2 L Pacific % (Auto) 4.8 Eos % (Auto) 0.3 Baso % (Auto) 0.5 Neut # 8.5 H Lymph # 0.6 L Pacific # 0.5 Eos # 0.0 Baso # 0.0 Neutrophils % (Manual) 88 H Lymphocytes % (Manual) 7 L Monocytes % (Manual) 5 Platelet Estimate Slightly decreased L RBC Morphology Normal Puncture Site Rr pCO2 42 pO2 97 HCO3 25.2 ABG pH 7.39 ABG Total CO2 26.7 ABG O2 Saturation 99.6 H ABG Base Excess 0.3 ABG Hemoglobin 9.0 L ABG Carboxyhemoglobin 1.9 H POC ABG HHb (Measured) 0.4 ABG Methemoglobin 1.1 Fish Test Pos A-a O2 Difference 207.0 Respiratory Index 2.1 Hgb O2 Saturation 96.6 Mechanical Rate 16 FiO2 50.0 Tidal Volume 400 PEEP 5 Sodium 146 Potassium 3.1 L Chloride 112 H Carbon Dioxide 28 Anion Gap 9 L BUN 30 H Creatinine 1.4 H Est GFR ( Amer) 43 Est GFR (Non-Af Amer) 36 POC Glucose (mg/dL) 106 Random Glucose 122 H Calcium 7.5 L Phosphorus 3.3 Magnesium 1.7 Total Bilirubin 0.3 AST 33 ALT 51 Alkaline Phosphatase 50 Total Protein 4.3 L Albumin 2.1 L Globulin 2.2 Albumin/Globulin Ratio 1.0 10/14/16 10/14/16 07:01 12:06 WBC RBC Hgb Hct MCV MCH MCHC RDW Plt Count MPV Neut % (Auto) Lymph % (Auto) Pacific % (Auto) Eos % (Auto) Baso % (Auto) Neut # Lymph # Pacific # Eos # Baso # Neutrophils % (Manual) Lymphocytes % (Manual) Monocytes % (Manual) Platelet Estimate RBC Morphology Puncture Site pCO2 pO2 HCO3 ABG pH ABG Total CO2 ABG O2 Saturation ABG Base Excess ABG Hemoglobin ABG Carboxyhemoglobin POC ABG HHb (Measured) ABG Methemoglobin Fish Test A-a O2 Difference Respiratory Index Hgb O2 Saturation Mechanical Rate FiO2 Tidal Volume PEEP Sodium Potassium Chloride Carbon Dioxide Anion Gap BUN Creatinine Est GFR ( Amer) Est GFR (Non-Af Amer) POC Glucose (mg/dL) 177 H 152 H Random Glucose Calcium Phosphorus Magnesium Total Bilirubin AST ALT Alkaline Phosphatase Total Protein Albumin Globulin Albumin/Globulin Ratio Fingerstick Blood Sugar Results: 104 Review of Systems - Review of Systems Review of Systems: as stated in subjective Assessment/Plan - Assessment and Plan (Free Text) Assessment: 86-year-old female with PMHx significant for COPD hypertension and CAD, initially presented to ICU with acute respiratory failure and hypercarbic encephalopathy. Patient had a prior episode of epistaxis which has since resolved. Patient desaturated 10/08/16 in mild distress prompting re-intubation. Patient with moderate left sided pleural effusion to undergo thoracentesis as initially planned. Plan: Neuro: Re-intubated and sedated 10/08/16- noted improvement. Could not comply with ROS at this time 09/23/16 CT Head- Generalized atrophy. Nonspecific white matter changes. Cardiovascular: Better rate control noted HTN Diltiazem IV switched to OGT QID Plavix 75mg PO daily- held due to prior bleed Lisinopril 20mg NG BID daily Aspirin 81mg po daily- held due to prior bleed Rouvastatin 10mg po HS Pulmonary: Continue ventilatory support, follow up ABG and reduce FiO2 as tolerated Patient extubated 8:50AM 10/02/16; however re-intubated 10/08/16 due to desaturation into the 80s. tolerating CPAP Solumedrol tapered down- 20mg IV daily Budesonide 0.5mg INH Q12 Imagin10/14/16- B/L pleural effusions as noted over past few days. Left is greater than right.Will require thoracentesis by IR. Continue abx, nebulizer treatment and steroids 10/10/16- improved left sided effusion- refer to full report 10/09/[address]- increasing pleural effusions let greater than right with associated compressive atelectasis and pneumonia; nodule noted as prev mentioned - 10/09/16 CXR- Lines and tubes in stable position. Persistent near complete opacification of the left susie thorax with moderate to large left pleural effusion. Diffuse increased interstitial lung markings in the right lung with some relative consolidation in the medial right infrahilar region. AB10/14/16 pH 7.39, PCO2 42, PO2 97, HCO3 25.5 10/11/16 pH 7.45, PCO2 48, PO2 105, HCO3 31.5 10/10/16 pH 7.42, PCO2 48, PO2 147, HCO3 29.5 GI: Abdominal flat plate per GI 10/11/16 - results report mildly dilated loops of bowel in RUQ w/ nonspecific gas pattern. CT of abd/ pelvis suggested ; however patient had one performed 09/29/16. In light of suspicions of ileus will hold feeds.- F/U with GI recommendations Pepcid 20 mg IV daily Having BMs Feeds restarted at 30 mls/hr under obs. - F/U Abdominal distension- CT Abdomen 10/06/16- Cholelithiasis, anasarca, unremarkable unenhanced appearance of liver, pancreas and spleen. Stomach nondistended and bowel loops WNL w/o evidence of intestinal obstruction- moderate diffuse distension of the colon GI Consult- Dr. Ayala- Considerations for CT abdomen- See aforementioned; on Flagyl 500 mg PO TID; F/U C diff studies Gen Surg Consult- Dr. Jimenez- no surgical intervention at this time- sign off Lactulose 20mg po HS DC- Ammonia stable 10/01/16 Abd XR- Mild dilatation of the transverse and ascending colon. No evidence of small bowel obstruction. No masses or abnormal intra-abdominal calcifications. Nasogastric tube tip in left upper quadrant of abdomen. No definite free intraperitoneal air. 09/29/16 CT ABd/Pelv- 1. Cholelithiasis without CT evidence for acute cholecystitis. 2. Colonic distention with air-fluid levels which may represent ileus or pseudo obstruction, no definite evidence of mass or colitis. 3. Mild sigmoid diverticulosis without CT evidence for acute diverticulitis. 4. Several large simple cysts in the left kidney. Nonvisualization of the right kidney. 5. Mild ascites and moderate bilateral pleural effusions. 09/29/16 Abd XR- Moderately dilated bowel loops at the mid to upper abdomen right more than left. If clinically warranted further assessment by CT is suggested. Purred diet with thin liquids s/p passing of swallow eval Hematology: nasal packing removed- epistaxis resolved WBC 9.7- improving Hgb/Hct stable : 9.1/27.8- Monitor Endocrine: Maintain euglycemia HbA1c- 5.9 Insulin Sliding Scale protocol Renal: Initial KAYLEN improving. BUN/Cr: 30/1.4 Hypokalemia- repleted Hypernatremia- resolved ID: U/A negative, UC negative Blood Cx negative DC Abx 10/03/16 : Perez in place MSK: turn 2 qh to prevent bed sores Palliative Care: Palliative Care Consult Placed- F/U Prophylaxis- Pepcid 20mg IV daily Lovenox 40mg sc HELD due to epistaxis event, SCDs in place Ensure Enlive - three times a day <Jacinta Charlton - Last Filed: 10/14/16 16:06> CCU Subjective - Physician Review Events Since Last Encounter (Free Text): 10/14/16 16:05 Patient is currently on ventilator. CPAP trial is on. Tolerating the CPAP today. Awake and responding. Chest good air entry bilaterally regular heart sound nontender abdomen. Edema bilateral leg edema Labs reviewed chest x-ray reviewed Assessment a condition: 85-year-old female admitted with the acute respiratory failure secondary to COPD exacerbation stable at this time, possible weaning process slowly possible in 2 days. Will follow the patient CCU Objective - Vital Signs / Intake & Output Intake and Output (Last 8hrs): Intake & Output 10/14/16 10/14/16 10/14/16 06:59 14:59 22:59 Intake Total 340 120 Output Total 320 175 Balance 20 -55 Weight 179 lb 14.355 oz Intake: Intake, IV Amount 100 Right Distal Port 100 Subclavian Tube Feeding 240 120 Output: Urine 320 175 Urethral (Perez) 320 175 - Medications Active Medications: Active Medications Generic Name Dose Route Start Last Admin Trade Name Freq PRN Reason Stop Dose Admin Aspirin 81 mg 09/24/16 18:30 10/05/16 09:14 Aspirin Chewable PO 81 mg DAILY KAILA Administration Budesonide 0.5 mg 10/02/16 20:00 10/14/16 07:35 Pulmicort Respules INH 0.5 mg RQ12 KAILA Administration Clopidogrel Bisulfate 75 mg 09/26/16 10:00 10/05/16 09:14 Plavix PO 75 mg DAILY KAILA Administration Diltiazem HCl 60 mg 10/10/16 14:00 10/14/16 11:04 Cardizem GT 60 mg QID KAILA Administration Enoxaparin Sodium 40 mg 09/26/16 13:00 10/05/16 09:14 Lovenox SC 40 mg DAILY KAILA Administration Famotidine 20 mg 10/08/16 10:00 10/14/16 11:07 Pepcid IVP 20 mg DAILY KAILA Administration Doxycycline Hyclate 100 mg/ 100 mls @ 100 mls/hr 10/13/16 09:00 10/14/16 09:00 Sodium Chloride IVPB 100 mls/hr Q12H KAILA Administration Metronidazole 100 mls @ 100 mls/hr 10/13/16 08:00 10/14/16 15:48 Flagyl IVPB 100 mls/hr Q8H KAILA Administration Insulin Human Regular 0 unit 10/09/16 00:01 10/14/16 15:44 Novolin R SC Not Given Q6H KAILA Protocol Lisinopril 20 mg 10/05/16 18:00 10/14/16 11:10 Zestril NG 20 mg BID KAILA Administration Methylprednisolone 20 mg 10/07/16 10:00 10/14/16 11:09 Solu-Medrol IV 20 mg DAILY KAILA Administration Midazolam HCl 2 mg 10/13/16 12:35 10/14/16 06:54 Versed Inj IVP 2 mg Q4H PRN Administration Agitation Polyethylene Glycol 17 gm 10/06/16 10:00 10/14/16 11:07 Miralax PO 17 gm DAILY KAILA Administration Rosuvastatin Calcium 10 mg 09/23/16 22:00 10/13/16 21:49 Crestor PO 10 mg HS KAILA Administration - Patient Studies Lab Studies: Lab Studies 10/14/16 10/14/16 10/14/16 Range/Units 12:06 07:01 06:39 WBC 9.7 (4.8-10.8) K/uL RBC 3.04 L (3.80-5.20) Mil/uL Hgb 9.1 L (11.0-16.0) g/dL Hct 27.8 L (34.0-47.0) % MCV 91.5 (81.0-99.0) fL MCH 30.1 (27.0-31.0) pg MCHC 32.9 L (33.0-37.0) g/dL RDW 14.9 H (11.5-14.5) % Plt Count 103 L (130-400) K/uL MPV 10.5 (7.2-11.7) fL Neut % (Auto) 88.2 H (50.0-75.0) % Lymph % (Auto) 6.2 L (20.0-40.0) % Pacific % (Auto) 4.8 (0.0-10.0) % Eos % (Auto) 0.3 (0.0-4.0) % Baso % (Auto) 0.5 (0.0-2.0) % Neut # 8.5 H (1.8-7.0) K/uL Lymph # 0.6 L (1.0-4.3) K/uL Pacific # 0.5 (0.0-0.8) K/uL Eos # 0.0 (0.0-0.7) K/uL Baso # 0.0 (0.0-0.2) K/uL Neutrophils % (Manual) 88 H (50-75) % Lymphocytes % (Manual) 7 L (20-40) % Monocytes % (Manual) 5 (0-10) % Platelet Estimate Slightly decreased L (NORMAL) RBC Morphology Normal Puncture Site pCO2 (35-45) mm/Hg pO2 (80-100) mm/Hg HCO3 (21-28) mmol/L ABG pH (7.35-7.45) ABG Total CO2 (22-28) mmol/L ABG O2 Saturation (95-98) % ABG Base Excess (-2.0-3.0) mmol/L ABG Hemoglobin (11.7-17.4) g/dL ABG Carboxyhemoglobin (0.5-1.5) % POC ABG HHb (Measured) (0.0-5.0) % ABG Methemoglobin (0.0-3.0) % Fish Test A-a O2 Difference mm/Hg Respiratory Index Hgb O2 Saturation (95.0-98.0) % Mechanical Rate FiO2 % Tidal Volume PEEP Sodium 146 (132-148) mmol/L Potassium 3.1 L (3.6-5.2) mmol/L Chloride 112 H (98-107) mmol/L Carbon Dioxide 28 (22-30) mmol/L Anion Gap 9 L (10-20) BUN 30 H (7-17) mg/dL Creatinine 1.4 H (0.7-1.2) MG/DL Est GFR ( Amer) 43 Est GFR (Non-Af Amer) 36 POC Glucose (mg/dL) 152 H 177 H (65-110) mg/dL Random Glucose 122 H (65-105) mg/dL Calcium 7.5 L (8.6-10.4) mg/dl Phosphorus 3.3 (2.5-4.5) mg/dL Magnesium 1.7 (1.6-2.3) mg/dL Total Bilirubin 0.3 (0.2-1.3) mg/dL AST 33 (14-36) U/L ALT 51 (9-52) U/L Alkaline Phosphatase 50 (38-126) U/L Total Protein 4.3 L (6.3-8.3) g/dL Albumin 2.1 L (3.5-5.0) g/dL Globulin 2.2 (2.2-3.9) gm/dL Albumin/Globulin Ratio 1.0 (1.0-2.1) 10/14/16 10/14/16 Range/Units 05:11 00:03 WBC (4.8-10.8) K/uL RBC (3.80-5.20) Mil/uL Hgb (11.0-16.0) g/dL Hct (34.0-47.0) % MCV (81.0-99.0) fL MCH (27.0-31.0) pg MCHC (33.0-37.0) g/dL RDW (11.5-14.5) % Plt Count (130-400) K/uL MPV (7.2-11.7) fL Neut % (Auto) (50.0-75.0) % Lymph % (Auto) (20.0-40.0) % Pacific % (Auto) (0.0-10.0) % Eos % (Auto) (0.0-4.0) % Baso % (Auto) (0.0-2.0) % Neut # (1.8-7.0) K/uL Lymph # (1.0-4.3) K/uL Pacific # (0.0-0.8) K/uL Eos # (0.0-0.7) K/uL Baso # (0.0-0.2) K/uL Neutrophils % (Manual) (50-75) % Lymphocytes % (Manual) (20-40) % Monocytes % (Manual) (0-10) % Platelet Estimate (NORMAL) RBC Morphology Puncture Site Rr pCO2 42 (35-45) mm/Hg pO2 97 (80-100) mm/Hg HCO3 25.2 (21-28) mmol/L ABG pH 7.39 (7.35-7.45) ABG Total CO2 26.7 (22-28) mmol/L ABG O2 Saturation 99.6 H (95-98) % ABG Base Excess 0.3 (-2.0-3.0) mmol/L ABG Hemoglobin 9.0 L (11.7-17.4) g/dL ABG Carboxyhemoglobin 1.9 H (0.5-1.5) % POC ABG HHb (Measured) 0.4 (0.0-5.0) % ABG Methemoglobin 1.1 (0.0-3.0) % Fish Test Pos A-a O2 Difference 207.0 mm/Hg Respiratory Index 2.1 Hgb O2 Saturation 96.6 (95.0-98.0) % Mechanical Rate 16 FiO2 50.0 % Tidal Volume 400 PEEP 5 Sodium (132-148) mmol/L Potassium (3.6-5.2) mmol/L Chloride (98-107) mmol/L Carbon Dioxide (22-30) mmol/L Anion Gap (10-20) BUN (7-17) mg/dL Creatinine (0.7-1.2) MG/DL Est GFR ( Amer) Est GFR (Non-Af Amer) POC Glucose (mg/dL) 106 (65-110) mg/dL Random Glucose (65-105) mg/dL Calcium (8.6-10.4) mg/dl Phosphorus (2.5-4.5) mg/dL Magnesium (1.6-2.3) mg/dL Total Bilirubin (0.2-1.3) mg/dL AST (14-36) U/L ALT (9-52) U/L Alkaline Phosphatase (38-126) U/L Total Protein (6.3-8.3) g/dL Albumin (3.5-5.0) g/dL Globulin (2.2-3.9) gm/dL Albumin/Globulin Ratio (1.0-2.1) Laboratory Results - last 24 hr 10/14/16 10/14/16 10/14/16 00:03 05:11 06:39 WBC 9.7 RBC 3.04 L Hgb 9.1 L Hct 27.8 L MCV 91.5 MCH 30.1 MCHC 32.9 L RDW 14.9 H Plt Count 103 L MPV 10.5 Neut % (Auto) 88.2 H Lymph % (Auto) 6.2 L [place] % (Auto) 4.8 Eos % (Auto) 0.3 Baso % (Auto) 0.5 Neut # 8.5 H Lymph # 0.6 L [place] # 0.5 Eos # 0.0 Baso # 0.0 Neutrophils % (Manual) 88 H Lymphocytes % (Manual) 7 L Monocytes % (Manual) 5 Platelet Estimate Slightly decreased L RBC Morphology Normal Puncture Site Rr pCO2 42 pO2 97 HCO3 25.2 ABG pH 7.39 ABG Total CO2 26.7 ABG O2 Saturation 99.6 H ABG Base Excess 0.3 ABG Hemoglobin 9.0 L ABG Carboxyhemoglobin 1.9 H POC ABG HHb (Measured) 0.4 ABG Methemoglobin 1.1 Fish Test Pos A-a O2 Difference 207.0 Respiratory Index 2.1 Hgb O2 Saturation 96.6 Mechanical Rate 16 FiO2 50.0 Tidal Volume 400 PEEP 5 Sodium 146 Potassium 3.1 L Chloride 112 H Carbon Dioxide 28 Anion Gap 9 L BUN 30 H Creatinine 1.4 H Est GFR ( Amer) 43 Est GFR (Non-Af Amer) 36 POC Glucose (mg/dL) 106 Random Glucose 122 H Calcium 7.5 L Phosphorus 3.3 Magnesium 1.7 Total Bilirubin 0.3 AST 33 ALT 51 Alkaline Phosphatase 50 Total Protein 4.3 L Albumin 2.1 L Globulin 2.2 Albumin/Globulin Ratio 1.0 10/14/16 10/14/16 07:01 12:06 WBC RBC Hgb Hct MCV MCH MCHC RDW Plt Count MPV Neut % (Auto) Lymph % (Auto) Pacific % (Auto) Eos % (Auto) Baso % (Auto) Neut # Lymph # Pacific # Eos # Baso # Neutrophils % (Manual) Lymphocytes % (Manual) Monocytes % (Manual) Platelet Estimate RBC Morphology Puncture Site pCO2 pO2 HCO3 ABG pH ABG Total CO2 ABG O2 Saturation ABG Base Excess ABG Hemoglobin ABG Carboxyhemoglobin POC ABG HHb (Measured) ABG Methemoglobin Fish Test A-a O2 Difference Respiratory Index Hgb O2 Saturation Mechanical Rate FiO2 Tidal Volume PEEP Sodium Potassium Chloride Carbon Dioxide Anion Gap BUN Creatinine Est GFR ( Amer) Est GFR (Non-Af Amer) POC Glucose (mg/dL) 177 H 152 H Random Glucose Calcium Phosphorus Magnesium Total Bilirubin AST ALT Alkaline Phosphatase Total Protein Albumin Globulin Albumin/Globulin Ratio
--- NOTE | 2016-10-14 15:51 | CP.PCM.PN ---
Subjective - Date & Time of Evaluation Date of Evaluation: 10/14/16 Time of Evaluation: 15:48 - Subjective Subjective: CC: Follow up ileus BMs reported. No abdominal pain. Mild colon distension on plain films. Tolerating feeds. Objective - Vital Signs/Intake and Output Vital Signs (last 24 hours): Temp Pulse Resp BP Pulse Ox 97.6 F 72 18 132/74 100 10/14/16 04:00 10/14/16 06:00 10/14/16 06:00 10/14/16 06:00 10/14/16 06:00 Intake and Output: 10/14/16 10/14/16 06:59 18:59 Intake Total 560 120 Output Total 480 175 Balance 80 -55 - Medications Medications: Current Medications Aspirin (Aspirin Chewable) 81 mg PO DAILY [facility] Last Admin: 10/05/16 09:14 Dose: 81 mg Budesonide (Pulmicort Respules) 0.5 mg INH RQ12 [facility] Last Admin: 10/14/16 07:35 Dose: 0.5 mg Clopidogrel Bisulfate (Plavix) 75 mg PO DAILY [facility] Last Admin: 10/05/16 09:14 Dose: 75 mg Diltiazem HCl (Cardizem) 60 mg GT QID [facility] Last Admin: 10/14/16 11:04 Dose: 60 mg Enoxaparin Sodium (Lovenox) 40 mg SC DAILY [facility] Last Admin: 10/05/16 09:14 Dose: 40 mg Famotidine (Pepcid) 20 mg IVP DAILY [facility] Last Admin: 10/14/16 11:07 Dose: 20 mg Doxycycline Hyclate 100 mg/ (Sodium Chloride) 100 mls @ 100 mls/hr IVPB Q12H [facility] Last Admin: 10/14/16 09:00 Dose: 100 mls/hr Metronidazole (Flagyl) 100 mls @ 100 mls/hr IVPB Q8H [facility] Last Admin: 10/14/16 15:48 Dose: 100 mls/hr Insulin Human Regular (Novolin R) 0 unit SC Q6H [facility] PRN Reason: Protocol Last Admin: 10/14/16 15:44 Dose: Not Given Lisinopril (Zestril) 20 mg NG BID [facility] Last Admin: 10/14/16 11:10 Dose: 20 mg Methylprednisolone (Solu-Medrol) 20 mg IV DAILY [facility] Last Admin: 10/14/16 11:09 Dose: 20 mg Midazolam HCl (Versed Inj) 2 mg IVP Q4H PRN PRN Reason: Agitation Last Admin: 10/14/16 06:54 Dose: 2 mg Polyethylene Glycol (Miralax) 17 gm PO DAILY [facility] Last Admin: 10/14/16 11:07 Dose: 17 gm Rosuvastatin Calcium (Crestor) 10 mg PO HS [facility] Last Admin: 10/13/16 21:49 Dose: 10 mg - Labs Labs: 10/14/16 06:39 10/14/16 06:39 PT 12.3 SECONDS (9.7-12.2) H 10/06/16 01:34 INR 1.1 10/06/16 01:34 APTT 27 SECONDS (21-34) 10/06/16 01:34 - Head Exam Head Exam: NORMOCEPHALIC - ENT Exam Additional comments: On Vent - Respiratory Exam Respiratory Exam: Decreased Breath Sounds - Cardiovascular Exam Cardiovascular Exam: REGULAR RHYTHM - GI/Abdominal Exam GI & Abdominal Exam: Soft. absent: Tenderness Additional comments: Protuberant abdomen Assessment and Plan (1) Respiratory failure Assessment & Plan: Vent support in ICU Status: Chronic (2) Abdominal distension Assessment & Plan: tolerating feeds. Doubt obstruction present. Continue feeds and Miralax Status: Acute
[2016-10-15] MEDS: (Novolin R) Insulin Human Regular 100 units/ml vial SC SCH ×4 (00:30→18:35)
[2016-10-15 05:38] LABS: ABG ALLEN TEST POS; ABG MECHANICAL RATE 16; ARTERIAL BLOOD HGB O2 SAT 95.4 % (95.0-98.0); ATERIAL BLOOD GAS PEEP 5; CARBOXYHEMOGLOBIN 1.9 % (0.5-1.5); DRAW SITE RRAD; HHB 1.4 % (0.0-5.0); METHEMOGLOBIN 1.4 % (0.0-3.0)
[2016-10-15 06:02] LABS: BASO # 0.1 K/uL (0.0-0.2); BASO % 0.4 % (0.0-2.0); EOS % 0.1 % (0.0-4.0); HEMATOCRIT 35.7 % (34.0-47.0); LYMPH # 0.5 K/uL (1.0-4.3); LYMPH % 3.9 % (20.0-40.0); MEAN CELL VOLUME 92.7 fL (81.0-99.0); MEAN CORPUSCULAR HEMOGLOBIN 29.2 pg (27.0-31.0); MEAN CORPUSCULAR HGB CONC 31.4 g/dL (33.0-37.0); MEAN PLATELET VOLUME 10.4 fL (7.2-11.7); MONO # 0.4 K/uL (0.0-0.8); MONO % 3.2 % (0.0-10.0); PLATELET COUNT 132 K/uL (130-400); RED CELL DISTRIBUTION WIDTH 15.1 % (11.5-14.5); WHITE BLOOD COUNT 13.9 K/uL (4.8-10.8)
[2016-10-15 06:09] LABS: POTASSIUM 3.2 mmol/L (3.6-5.2)
[2016-10-15 06:11] LABS: ALB/GLOB RATIO 1.1 (1.0-2.1); BILIRUBIN,TOTAL 0.4 mg/dL (0.2-1.3); TOTAL PROTEIN 4.8 g/dL (6.3-8.3)
[2016-10-15 06:12] LABS: CALCIUM 8.1 mg/dl (8.6-10.4); MAGNESIUM 1.7 mg/dL (1.6-2.3); PHOSPHOROUS 3.3 mg/dL (2.5-4.5)
[2016-10-15] MEDS ORDERED: Potassium Chloride 20 mEq 100 ML IVPB ONE (06:28)
[2016-10-15] MEDS: Budesonide 0.5 mg/2 ml Inhal Susp UD INH SCH ×2 (07:32→19:13)
[2016-10-15 08:30] LABS: TOTAL CELLS COUNTED 100
[2016-10-15 08:32] LABS: NEUTROPHIL 88 % (50-75)
--- NOTE | 2016-10-15 08:36 | CP.PCM.PN ---
Subjective - Date & Time of Evaluation Date of Evaluation: 10/15/16 Time of Evaluation: 08:20 - Subjective Subjective: F/U ileus No report of RB, melena, fever, chills, SZ, tremor, hemoptysis, hematuria Objective - Vital Signs/Intake and Output Vital Signs (last 24 hours): Temp Pulse Resp BP Pulse Ox 98.7 F 93 H 19 153/89 H 99 10/15/16 01:00 10/15/16 06:00 10/15/16 06:00 10/15/16 06:00 10/15/16 06:00 Intake and Output: 10/15/16 10/15/16 06:59 18:59 Intake Total 800 Output Total 790 Balance 10 - Medications Medications: Current Medications Albuterol/Ipratropium (Duoneb 3 Mg/0.5 Mg (3 Ml) Ud) 3 ml INH RQ4 [facility] Aspirin (Aspirin Chewable) 81 mg PO DAILY [facility] Last Admin: 10/05/16 09:14 Dose: 81 mg Budesonide (Pulmicort Respules) 0.5 mg INH RQ12 [facility] Last Admin: 10/15/16 07:32 Dose: 0.5 mg Clopidogrel Bisulfate (Plavix) 75 mg PO DAILY [facility] Last Admin: 10/05/16 09:14 Dose: 75 mg Diltiazem HCl (Cardizem) 60 mg GT QID [facility] Last Admin: 10/14/16 21:48 Dose: 60 mg Enoxaparin Sodium (Lovenox) 40 mg SC DAILY [facility] Last Admin: 10/05/16 09:14 Dose: 40 mg Famotidine (Pepcid) 20 mg IVP DAILY [facility] Last Admin: 10/14/16 11:07 Dose: 20 mg Doxycycline Hyclate 100 mg/ (Sodium Chloride) 100 mls @ 100 mls/hr IVPB Q12H [facility] Last Admin: 10/14/16 21:47 Dose: 100 mls/hr Metronidazole (Flagyl) 100 mls @ 100 mls/hr IVPB Q8H [facility] Last Admin: 10/14/16 23:33 Dose: 100 mls/hr Insulin Human Regular (Novolin R) 0 unit SC Q6H [facility] PRN Reason: Protocol Last Admin: 10/15/16 06:27 Dose: Not Given Lisinopril (Zestril) 20 mg NG BID [facility] Last Admin: 10/14/16 11:10 Dose: 20 mg Methylprednisolone (Solu-Medrol) 20 mg IV DAILY [facility] Last Admin: 10/14/16 11:09 Dose: 20 mg Midazolam HCl (Versed Inj) 2 mg IVP Q4H PRN PRN Reason: Agitation Last Admin: 10/14/16 06:54 Dose: 2 mg Polyethylene Glycol (Miralax) 17 gm PO DAILY [facility] Last Admin: 10/14/16 11:07 Dose: 17 gm Rosuvastatin Calcium (Crestor) 10 mg PO HS [facility] Last Admin: 10/14/16 21:48 Dose: 10 mg - Labs Labs: 10/15/16 05:53 10/15/16 05:53 PT 12.3 SECONDS (9.7-12.2) H 10/06/16 01:34 INR 1.1 10/06/16 01:34 APTT 27 SECONDS (21-34) 10/06/16 01:34 - Constitutional Appears: Chronically Ill - Respiratory Exam Respiratory Exam: Rhonchi - Cardiovascular Exam Cardiovascular Exam: RRR - GI/Abdominal Exam GI & Abdominal Exam: Distended, Normal Bowel Sounds. absent: Tenderness - Extremities Exam Extremities Exam: Pedal Edema - Neurological Exam Neurological Exam: Awake Assessment and Plan (1) Respiratory failure Status: Chronic (2) Abdominal distension Assessment & Plan: KUB from 10/14/16 is not read yet by radiology. Consider ileus or pseudo- obstruction. Follow feedings Status: Acute (3) Acute WI Status: Acute (4) Atrial fibrillation Status: Acute (5) Dysphagia Status: Acute (6) Hypernatremia Status: Acute (7) Leucocytosis Status: Acute (8) Anemia Status: Acute
[2016-10-15] MEDS: metroNIDAZOLE IV 500 mg/100 ml 100 ML IVPB SCH ×2 (09:00→15:02)
--- NOTE | 2016-10-15 10:03 | CP.PCM.PN ---
Subjective - Date & Time of Evaluation Date of Evaluation: 10/14/16 Time of Evaluation: 13:08 - Subjective Subjective: Pt seen and examined in no acute distress. Patient alert and able to point and gesture towards fan in need of cool air. Patient able to gesture and wave at family present bedside as well. Patient tolerating CPAP. Patient to have thoracentesis today after consent is obtained. An ROS could not be obtained at this time due to patient being intubated. Objective - Vital Signs/Intake and Output Vital Signs (last 24 hours): Temp Pulse Resp BP Pulse Ox 98.7 F 94 H 16 140/71 99 10/15/16 01:00 10/15/16 09:30 10/15/16 09:30 10/15/16 09:00 10/15/16 09:30 Intake and Output: 10/15/16 10/15/16 06:59 18:59 Intake Total 800 90 Output Total 790 185 Balance 10 -95 - Medications Medications: Current Medications Albuterol/Ipratropium (Duoneb 3 Mg/0.5 Mg (3 Ml) Ud) 3 ml INH RQ4 [facility] Aspirin (Aspirin Chewable) 81 mg PO DAILY [facility] Last Admin: 10/05/16 09:14 Dose: 81 mg Budesonide (Pulmicort Respules) 0.5 mg INH RQ12 [facility] Last Admin: 10/15/16 07:32 Dose: 0.5 mg Clopidogrel Bisulfate (Plavix) 75 mg PO DAILY [facility] Last Admin: 10/05/16 09:14 Dose: 75 mg Diltiazem HCl (Cardizem) 60 mg GT QID [facility] Last Admin: 10/14/16 21:48 Dose: 60 mg Enoxaparin Sodium (Lovenox) 40 mg SC DAILY [facility] Last Admin: 10/05/16 09:14 Dose: 40 mg Famotidine (Pepcid) 20 mg IVP DAILY [facility] Last Admin: 10/14/16 11:07 Dose: 20 mg Doxycycline Hyclate 100 mg/ (Sodium Chloride) 100 mls @ 100 mls/hr IVPB Q12H [facility] Last Admin: 10/14/16 21:47 Dose: 100 mls/hr Metronidazole (Flagyl) 100 mls @ 100 mls/hr IVPB Q8H [facility] Last Admin: 10/14/16 23:33 Dose: 100 mls/hr Insulin Human Regular (Novolin R) 0 unit SC Q6H [facility] PRN Reason: Protocol Last Admin: 10/15/16 06:27 Dose: Not Given Lisinopril (Zestril) 20 mg NG BID [facility] Last Admin: 10/14/16 11:10 Dose: 20 mg Methylprednisolone (Solu-Medrol) 20 mg IV DAILY [facility] Last Admin: 10/14/16 11:09 Dose: 20 mg Midazolam HCl (Versed Inj) 2 mg IVP Q4H PRN PRN Reason: Agitation Last Admin: 10/14/16 06:54 Dose: 2 mg Polyethylene Glycol (Miralax) 17 gm PO DAILY [facility] Last Admin: 10/14/16 11:07 Dose: 17 gm Rosuvastatin Calcium (Crestor) 10 mg PO HS [facility] Last Admin: 10/14/16 21:48 Dose: 10 mg - Labs Labs: 10/15/16 05:53 10/15/16 05:53 PT 12.3 SECONDS (9.7-12.2) H 10/06/16 01:34 INR 1.1 10/06/16 01:34 APTT 27 SECONDS (21-34) 10/06/16 01:34 - Constitutional Appears: Confused, Chronically Ill - Head Exam Head Exam: ATRAUMATIC, NORMAL INSPECTION, NORMOCEPHALIC - Eye Exam Eye Exam: EOMI, Normal appearance, PERRL Pupil Exam: NORMAL ACCOMODATION, PERRL - Respiratory Exam Respiratory Exam: Clear to Ausculation Bilateral, NORMAL BREATHING PATTERN - Cardiovascular Exam Cardiovascular Exam: REGULAR RHYTHM, +S1, +S2. absent: Murmur - GI/Abdominal Exam GI & Abdominal Exam: Distended, Hypoactive Bowel Sounds Assessment and Plan (1) Acute respiratory failure with hypoxia and hypercarbia Assessment & Plan: ON VENTILATOR Status: Resolved (2) Altered mental status Status: Resolved (3) Acute MD Status: Acute (4) Dehydration Status: Acute (5) Abdominal distension Assessment & Plan: tolerating feeds. Doubt obstruction present. Continue feeds and Miralax Status: Acute
[2016-10-15] MEDS: MethylPREDNISolone 40 mg Vial IV SCH (11:14)
[2016-10-15] MEDS: POLYETHYLENE GLYCOL 3350 17 GM/Dose PACKET PO SCH (11:19)
[2016-10-15] MEDS: Albuterol-Ipratrop 3 mg / 0.5 (3 ml) UD INH SCH ×5 (11:22→23:24)
--- NOTE | 2016-10-15 12:46 | RAD ---
HISTORY: intubated COMPARISON: 10/14/2016 FINDINGS: The endotracheal tube terminates 4.9 cm proximal to the vicente. The nasogastric tube terminates in the stomach. LUNGS: There is left lower lobe airspace disease. The right lung is clear. PLEURA: There is a moderate left pleural effusion. There is no large right pleural effusion. No pneumothorax. CARDIOVASCULAR: There is cardiomegaly and unfolding of the aorta. Atherosclerotic aortic arch calcifications are present. With. OSSEOUS STRUCTURES: No significant abnormalities. VISUALIZED UPPER ABDOMEN: Normal. OTHER FINDINGS: None. IMPRESSION: 1. Endotracheal tube terminates 4.9 cm proximal to the vicente. 2. Moderate left pleural effusion. Underlying atelectasis/pneumonia cannot be excluded.
--- NOTE | 2016-10-15 13:09 | RAD ---
PROCEDURE: CHEST RADIOGRAPH, 1 VIEW HISTORY: Intubated COMPARISON: 10/13/2016. FINDINGS: The endotracheal tube terminates 3.5 cm proximal to the vicente. The nasogastric tube terminates in the stomach. The right PICC line terminates in the SVC. LUNGS: The right lung is clear. There is a left perihilar opacity and left retrocardiac opacity. PLEURA: There is moderate left pleural effusion. No right pleural effusion. No pneumothorax. CARDIOVASCULAR: Normal. OSSEOUS STRUCTURES: No significant abnormalities. VISUALIZED UPPER ABDOMEN: Normal. OTHER FINDINGS: None. IMPRESSION: Suspect left lower lobe atelectasis/ pneumonia and moderate left pleural effusion. Asymmetric prominence of the left hilum could be related to vascular shadows however mass cannot be excluded. Please correlate with CT chest with intravenous contrast.
--- NOTE | 2016-10-15 14:27 | PCM.SURG1 ---
Surgeon's Initial Post Op Note - Surgeon's Notes Surgeon: Ryan Dickey MD Deputy Director Of Public Works: None Type of Anesthesia: Local Pre-Operative Diagnosis: Left pleural effusion Operative Findings: US showed a small left effusion Post-Operative Diagnosis: Left pleural effusion Operation Performed: US guided left thoracentesis. Specimen/Specimens Removed: 350 cc of brownish fluid. Estimated Blood Loss: EBL {In ML}: 0 Blood Products Given: N/A Drains Used: No Drains Post-Op Condition: Poor Date of Surgery/Procedure: 10/15/16 Time of Surgery/Procedure: 14:25
--- NOTE | 2016-10-15 14:44 | RAD ---
PROCEDURE: CHEST RADIOGRAPH, 1 VIEW HISTORY: post thoracentesis COMPARISON: 10/15/2016 at 7:21 a.m. FINDINGS: The endotracheal tube terminates 4 cm proximal to the vicente. The nasogastric tube terminates in the stomach. The right PICC line terminates in the SVC. LUNGS: The lungs are clear. PLEURA: There is interval significant decrease in size of the left pleural effusion with residual small effusion. No large right pleural effusion. No pneumothorax. CARDIOVASCULAR: Normal. OSSEOUS STRUCTURES: Within normal limits for the patient's age. VISUALIZED UPPER ABDOMEN: Normal. OTHER FINDINGS: None. IMPRESSION: Stable position of line and tubes. Status post thoracentesis, interval significantly decreased size of left pleural effusion with residual small effusion.
--- NOTE | 2016-10-15 14:58 | US ---
PROCEDURE: Date of procedure: 10/15/2016 Procedure: 1. Ultrasound-guided left thoracentesis, CPT 32538 Medications: 1% Lidocaine HISTORY: Left pleural effusion, respiratory difficulty TECHNIQUE: Following informed consent ,the Patients' left chest was marked. Procedure time-out was called, and the patient was placed in the sitting position and limited ultrasound showed a large left effusion. The patient's left back was prepped and draped in the usual sterile fashion. After the skin was anesthetized with lidocaine, a drainage catheter was advanced under ultrasound guidance into the pleural space. Ultrasound-guided thoracentesis was performed. A total of 350 cubic centimeters of dark greenish flluid removed without complication. A Xeroform dressing was applied. IMPRESSION: Ultrasound guided left thoracentesis. There were no immediate complications.
--- NOTE | 2016-10-15 15:09 | CP.CCUPN ---
<Katarzyna Hearn - Last Filed: 10/15/16 16:15> CCU Subjective - Physician Review Subjective (Free Text): 10/07/16 12:24 Patient was seen and examined in no acute distress. No acute events overnight. Packing remains in place. Patient appears more lethargic today at times as compared to her normal baseline. Patient was extubated 10/02/16 with O2 saturation in high 90s on venti mask. The patient has passed a swallow evaluation and eating though minimally. Per nursing, patient has not had a BM in 5-6 days. The patient did not comply with ROS due to somnolence. 10/08/16 12:48 Pt seen and examined though increasingly lethargic on evaluation and as per nursing. Patient desaturated into the 80's in mild distress prompting the need for intubation. A ROS could not be obtained due to patient's lethargy 10/09/16 14:24 Pt seen and examined in no acute distress. Patient intubated 10/08/16 with TLC placed with no events per nursing. A ROS could not be obtained due to patient's lethargy. 10/10/16 21:06 Pt seen and examined in no acute distress. No events overnight per nursing. An ROS could not be obtained due to patient being intubated and sedated. 10/11/16 07:16 Pt seen and examined in no acute distress. Patient hemodynamically stable at this time. Patient being weaned off FiO2. Feeds held in light of abdominal xray findings suggestive of large ileus. An ROS could not be obtained due to patient being intubated and sedated. Sister present bedside. 10/14/16 15:43 Pt seen and examined in no acute distress. Patient alert and able to point and gesture towards fan in need of cool air. Patient able to gesture and wave at family present bedside as well. Patient tolerating CPAP. Patient to have thoracentesis today after consent is obtained. An ROS could not be obtained at this time due to patient being intubated. 10/15/16 15:22 Pt seen and examined in no acute distress. Patient tolerating CPAP trial well. Patient had thoracentesis performed. Tolerated procedure well. Still intubated - No ROS at this time. CCU Objective - Vital Signs / Intake & Output Vital Signs (Last 4 hours): Vital Signs Temp Pulse Resp BP Pulse Ox 10/15/16 13:00 81 16 143/76 100 10/15/16 12:30 85 16 100 10/15/16 12:00 98.1 F 92 H 16 143/68 10/15/16 11:30 98 H 19 98 Intake and Output (Last 8hrs): Intake & Output 10/15/16 10/15/16 10/15/16 06:59 14:59 22:59 Intake Total 580 210 Output Total 530 450 Balance 50 -240 Weight 198 lb 6.656 oz Intake: Intake, IV Amount 100 Right Medial Port 100 Subclavian Tube Feeding 480 210 Output: Urine 530 450 Urethral (Perez) 530 450 - Physical Exam Head: Positive for: Atraumatic, Normocephalic, Other (ET Tube in place) Pupils: Positive for: PERRL Extroacular Muscles: Positive for: EOMI Conjunctiva: Positive for: Injected Mouth: Positive for: Dry Nose (Internal): Positive for: Other (Nasal packing in place) Neck: Positive for: Normal Range of Motion Respiratory/Chest: Positive for: Clear to Auscultation, Good Air Exchange, Rales. Negative for: Respiratory Distress, Accessory Muscle Use Cardiovascular: Positive for: Normal S1, S2, Irregular Rhythm. Negative for: Regular Rate and Rhythm, Murmurs Abdomen: Positive for: Distention, Normal Bowel Sounds. Negative for: Peritoneal Signs, Rebound Genitourinary/Pelvic Exam: Positive for: Other (perez in place) Upper Extremity: Positive for: Normal Inspection. Negative for: Cyanosis, Edema Lower Extremity: Positive for: Normal Inspection. Negative for: Edema, CALF TENDERNESS Neurological: Positive for: Other (sedated) Skin: Positive for: Warm, Dry Psychiatric: Positive for: Alert - Medications Active Medications: Active Medications Generic Name Dose Route Start Last Admin Trade Name Freq PRN Reason Stop Dose Admin Albuterol/Ipratropium 3 ml 10/15/16 08:00 10/15/16 11:27 Duoneb 3 Mg/0.5 Mg (3 Ml) Ud INH 3 ml RQ4 KAILA Administration Aspirin 81 mg 09/24/16 18:30 10/05/16 09:14 Aspirin Chewable PO 81 mg DAILY KAILA Administration Budesonide 0.5 mg 10/02/16 20:00 10/15/16 07:32 Pulmicort Respules INH 0.5 mg RQ12 KAILA Administration Clopidogrel Bisulfate 75 mg 09/26/16 10:00 10/05/16 09:14 Plavix PO 75 mg DAILY KAILA Administration Diltiazem HCl 60 mg 10/10/16 14:00 10/15/16 14:56 Cardizem GT 60 mg QID KAILA Administration Enoxaparin Sodium 40 mg 09/26/16 13:00 10/05/16 09:14 Lovenox SC 40 mg DAILY KAILA Administration Famotidine 20 mg 10/08/16 10:00 10/15/16 11:14 Pepcid IVP 20 mg DAILY KAILA Administration Doxycycline Hyclate 100 mg/ 100 mls @ 100 mls/hr 10/13/16 09:00 10/15/16 10:00 Sodium Chloride IVPB 100 mls/hr Q12H KAILA Administration Metronidazole 100 mls @ 100 mls/hr 10/13/16 08:00 10/15/16 15:02 Flagyl IVPB 100 mls/hr Q8H KAILA Administration Insulin Human Regular 0 unit 10/09/16 00:01 10/15/16 06:27 Novolin R SC Not Given Q6H [facility] Protocol Lisinopril 20 mg 10/05/16 18:00 10/15/16 11:15 Zestril NG 20 mg BID KAILA Administration Methylprednisolone 20 mg 10/07/16 10:00 10/15/16 11:14 Solu-Medrol IV 20 mg DAILY KAILA Administration Midazolam HCl 2 mg 10/13/16 12:35 10/14/16 06:54 Versed Inj IVP 2 mg Q4H PRN Administration Agitation Polyethylene Glycol 17 gm 10/06/16 10:00 10/15/16 11:19 Miralax PO Not Given DAILY [facility] Rosuvastatin Calcium 10 mg 09/23/16 22:00 10/14/16 21:48 Crestor PO 10 mg HS KAILA Administration - Patient Studies Lab Studies: Lab Studies 10/15/16 10/15/16 10/15/16 Range/Units 12:31 06:22 05:53 WBC 13.9 H (4.8-10.8) K/uL RBC 3.85 (3.80-5.20) Mil/uL Hgb 11.2 D (11.0-16.0) g/dL Hct 35.7 (34.0-47.0) % MCV 92.7 (81.0-99.0) fL MCH 29.2 (27.0-31.0) pg MCHC 31.4 L (33.0-37.0) g/dL RDW 15.1 H (11.5-14.5) % Plt Count 132 (130-400) K/uL MPV 10.4 (7.2-11.7) fL Neut % (Auto) 92.4 H (50.0-75.0) % Lymph % (Auto) 3.9 L (20.0-40.0) % Green % (Auto) 3.2 (0.0-10.0) % Eos % (Auto) 0.1 (0.0-4.0) % Baso % (Auto) 0.4 (0.0-2.0) % Neut # 12.9 H (1.8-7.0) K/uL Lymph # 0.5 L (1.0-4.3) K/uL Green # 0.4 (0.0-0.8) K/uL Eos # 0.0 (0.0-0.7) K/uL Baso # 0.1 (0.0-0.2) K/uL Neutrophils % (Manual) 88 H (50-75) % Band Neutrophils % 7 H (0-2) % Lymphocytes % (Manual) 3 L (20-40) % Monocytes % (Manual) 2 (0-10) % Platelet Estimate Normal (NORMAL) Poikilocytosis (manual Slight Anisocytosis (manual) Slight Tear Drop Cells Slight Puncture Site pCO2 (35-45) mm/Hg pO2 (80-100) mm/Hg HCO3 (21-28) mmol/L ABG pH (7.35-7.45) ABG Total CO2 (22-28) mmol/L ABG O2 Saturation (95-98) % ABG Base Excess (-2.0-3.0) mmol/L ABG Hemoglobin (11.7-17.4) g/dL ABG Carboxyhemoglobin (0.5-1.5) % POC ABG HHb (Measured) (0.0-5.0) % ABG Methemoglobin (0.0-3.0) % Fish Test A-a O2 Difference mm/Hg Respiratory Index Hgb O2 Saturation (95.0-98.0) % Mechanical Rate FiO2 % Tidal Volume PEEP Sodium 148 (132-148) mmol/L Potassium 3.2 L (3.6-5.2) mmol/L Chloride 110 H (98-107) mmol/L Carbon Dioxide 24 (22-30) mmol/L Anion Gap 17 (10-20) BUN 38 H (7-17) mg/dL Creatinine 1.3 H (0.7-1.2) MG/DL Est GFR ( Amer) 47 Est GFR (Non-Af Amer) 39 POC Glucose (mg/dL) 169 H 136 H (65-110) mg/dL Random Glucose 116 H (65-105) mg/dL Calcium 8.1 L (8.6-10.4) mg/dl Phosphorus 3.3 (2.5-4.5) mg/dL Magnesium 1.7 (1.6-2.3) mg/dL Total Bilirubin 0.4 (0.2-1.3) mg/dL AST 29 (14-36) U/L ALT 46 (9-52) U/L Alkaline Phosphatase 58 (38-126) U/L Total Protein 4.8 L (6.3-8.3) g/dL Albumin 2.5 L (3.5-5.0) g/dL Globulin 2.3 (2.2-3.9) gm/dL Albumin/Globulin Ratio 1.1 (1.0-2.1) 10/15/16 10/15/16 10/14/16 Range/Units 05:12 00:13 18:09 WBC (4.8-10.8) K/uL RBC (3.80-5.20) Mil/uL Hgb (11.0-16.0) g/dL Hct (34.0-47.0) % MCV (81.0-99.0) fL MCH (27.0-31.0) pg MCHC (33.0-37.0) g/dL RDW (11.5-14.5) % Plt Count (130-400) K/uL MPV (7.2-11.7) fL Neut % (Auto) (50.0-75.0) % Lymph % (Auto) (20.0-40.0) % Green % (Auto) (0.0-10.0) % Eos % (Auto) (0.0-4.0) % Baso % (Auto) (0.0-2.0) % Neut # (1.8-7.0) K/uL Lymph # (1.0-4.3) K/uL Green # (0.0-0.8) K/uL Eos # (0.0-0.7) K/uL Baso # (0.0-0.2) K/uL Neutrophils % (Manual) (50-75) % Band Neutrophils % (0-2) % Lymphocytes % (Manual) (20-40) % Monocytes % (Manual) (0-10) % Platelet Estimate (NORMAL) Poikilocytosis (manual Anisocytosis (manual) Tear Drop Cells Puncture Site Rrad pCO2 40 (35-45) mm/Hg pO2 85 (80-100) mm/Hg HCO3 24.4 (21-28) mmol/L ABG pH 7.39 (7.35-7.45) ABG Total CO2 25.4 (22-28) mmol/L ABG O2 Saturation 98.6 H (95-98) % ABG Base Excess -0.7 (-2.0-3.0) mmol/L ABG Hemoglobin 11.1 L (11.7-17.4) g/dL ABG Carboxyhemoglobin 1.9 H (0.5-1.5) % POC ABG HHb (Measured) 1.4 (0.0-5.0) % ABG Methemoglobin 1.4 (0.0-3.0) % Fish Test Pos A-a O2 Difference 222.0 mm/Hg Respiratory Index 2.6 Hgb O2 Saturation 95.4 (95.0-98.0) % Mechanical Rate 16 FiO2 50.0 % Tidal Volume 400 PEEP 5 Sodium (132-148) mmol/L Potassium (3.6-5.2) mmol/L Chloride (98-107) mmol/L Carbon Dioxide (22-30) mmol/L Anion Gap (10-20) BUN (7-17) mg/dL Creatinine (0.7-1.2) MG/DL Est GFR ( Amer) Est GFR (Non-Af Amer) POC Glucose (mg/dL) 149 H 202 H (65-110) mg/dL Random Glucose (65-105) mg/dL Calcium (8.6-10.4) mg/dl Phosphorus (2.5-4.5) mg/dL Magnesium (1.6-2.3) mg/dL Total Bilirubin (0.2-1.3) mg/dL AST (14-36) U/L ALT (9-52) U/L Alkaline Phosphatase (38-126) U/L Total Protein (6.3-8.3) g/dL Albumin (3.5-5.0) g/dL Globulin (2.2-3.9) gm/dL Albumin/Globulin Ratio (1.0-2.1) Laboratory Results - last 24 hr 10/14/16 10/15/16 10/15/16 18:09 00:13 05:12 WBC RBC Hgb Hct MCV MCH MCHC RDW Plt Count MPV Neut % (Auto) Lymph % (Auto) Green % (Auto) Eos % (Auto) Baso % (Auto) Neut # Lymph # Green # Eos # Baso # Neutrophils % (Manual) Band Neutrophils % Lymphocytes % (Manual) Monocytes % (Manual) Platelet Estimate Poikilocytosis (manual Anisocytosis (manual) Tear Drop Cells Puncture Site Rrad pCO2 40 pO2 85 HCO3 24.4 ABG pH 7.39 ABG Total CO2 25.4 ABG O2 Saturation 98.6 H ABG Base Excess -0.7 ABG Hemoglobin 11.1 L ABG Carboxyhemoglobin 1.9 H POC ABG HHb (Measured) 1.4 ABG Methemoglobin 1.4 Fish Test Pos A-a O2 Difference 222.0 Respiratory Index 2.6 Hgb O2 Saturation 95.4 Mechanical Rate 16 FiO2 50.0 Tidal Volume 400 PEEP 5 Sodium Potassium Chloride Carbon Dioxide Anion Gap BUN Creatinine Est GFR ( Amer) Est GFR (Non-Af Amer) POC Glucose (mg/dL) 202 H 149 H Random Glucose Calcium Phosphorus Magnesium Total Bilirubin AST ALT Alkaline Phosphatase Total Protein Albumin Globulin Albumin/Globulin Ratio 10/15/16 10/15/16 10/15/16 05:53 06:22 12:31 WBC 13.9 H RBC 3.85 Hgb 11.2 D Hct 35.7 MCV 92.7 MCH 29.2 MCHC 31.4 L RDW 15.1 H Plt Count 132 MPV 10.4 Neut % (Auto) 92.4 H Lymph % (Auto) 3.9 L Green % (Auto) 3.2 Eos % (Auto) 0.1 Baso % (Auto) 0.4 Neut # 12.9 H Lymph # 0.5 L Green # 0.4 Eos # 0.0 Baso # 0.1 Neutrophils % (Manual) 88 H Band Neutrophils % 7 H Lymphocytes % (Manual) 3 L Monocytes % (Manual) 2 Platelet Estimate Normal Poikilocytosis (manual Slight Anisocytosis (manual) Slight Tear Drop Cells Slight Puncture Site pCO2 pO2 HCO3 ABG pH ABG Total CO2 ABG O2 Saturation ABG Base Excess ABG Hemoglobin ABG Carboxyhemoglobin POC ABG HHb (Measured) ABG Methemoglobin Fish Test A-a O2 Difference Respiratory Index Hgb O2 Saturation Mechanical Rate FiO2 Tidal Volume PEEP Sodium 148 Potassium 3.2 L Chloride 110 H Carbon Dioxide 24 Anion Gap 17 BUN 38 H Creatinine 1.3 H Est GFR ( Amer) 47 Est GFR (Non-Af Amer) 39 POC Glucose (mg/dL) 136 H 169 H Random Glucose 116 H Calcium 8.1 L Phosphorus 3.3 Magnesium 1.7 Total Bilirubin 0.4 AST 29 ALT 46 Alkaline Phosphatase 58 Total Protein 4.8 L Albumin 2.5 L Globulin 2.3 Albumin/Globulin Ratio 1.1 Fingerstick Blood Sugar Results: 104 Review of Systems - Review of Systems Review of Systems: see subjective Assessment/Plan - Assessment and Plan (Free Text) Assessment: 86-year-old female with PMHx significant for COPD hypertension and CAD, initially presented to ICU with acute respiratory failure and hypercarbic encephalopathy. Patient had a prior episode of epistaxis which has since resolved. Patient desaturated 10/08/16 in mild distress prompting re-intubation. Patient s/p thoracentesis. Plan: Neuro: Re-intubated and sedated 10/08/16- noted improvement. Could not comply with ROS at this time 09/23/16 CT Head- Generalized atrophy. Nonspecific white matter changes. Cardiovascular: Better rate control noted HTN Diltiazem IV switched to OGT QID Plavix 75mg PO daily- held due to prior bleed Lisinopril 20mg NG BID daily Aspirin 81mg po daily- held due to prior bleed Rouvastatin 10mg po HS Pulmonary: s/p thoracentesis- 350 cc of brownish colored fluid removed. F/U pleura studies ( cell count/diff, glucose, LDH, albumin, amylase, cholesterol, total protein), Lactic acid and LDH serum Continue ventilatory support, follow up ABG and reduce FiO2 as tolerated Patient extubated 8:50AM 10/02/16; however re-intubated 10/08/16 due to desaturation into the 80s. tolerating CPAP Solumedrol tapered down- 20mg IV daily Budesonide 0.5mg INH Q12 Imagin10/14/16- B/L pleural effusions as noted over past few days. Left is greater than right. 10/10/16- improved left sided effusion- refer to full report 10/09/[address]- increasing pleural effusions let greater than right with associated compressive atelectasis and pneumonia; nodule noted as prev mentioned - 10/09/16 CXR- Lines and tubes in stable position. Persistent near complete opacification of the left susie thorax with moderate to large left pleural effusion. Diffuse increased interstitial lung markings in the right lung with some relative consolidation in the medial right infrahilar region. AB10/15/16 pH 7.39, PCO2 40, PO2 85, HCO3 24.4 ( stable- can likely extubate soon with continued improvement) 10/14/16 pH 7.39, PCO2 42, PO2 97, HCO3 25.5 GI: Abdominal flat plate per GI 10/11/16 - results report mildly dilated loops of bowel in RUQ w/ nonspecific gas pattern. CT of abd/ pelvis suggested ; however patient had one performed 09/29/16. In light of suspicions of ileus will hold feeds.- F/U with GI recommendations Pepcid 20 mg IV daily Having BMs Feeds restarted at 30 mls/hr under obs. - F/U Abdominal distension- CT Abdomen 10/06/16- Cholelithiasis, anasarca, unremarkable unenhanced appearance of liver, pancreas and spleen. Stomach nondistended and bowel loops WNL w/o evidence of intestinal obstruction- moderate diffuse distension of the colon GI Consult- Dr. Ayala- Considerations for CT abdomen- See aforementioned; on Flagyl 500 mg PO TID; F/U C diff studies Gen Surg Consult- Dr. Jimenez- no surgical intervention at this time- sign off Lactulose 20mg po HS DC- Ammonia stable 10/01/16 Abd XR- Mild dilatation of the transverse and ascending colon. No evidence of small bowel obstruction. No masses or abnormal intra-abdominal calcifications. Nasogastric tube tip in left upper quadrant of abdomen. No definite free intraperitoneal air. 09/29/16 CT ABd/Pelv- 1. Cholelithiasis without CT evidence for acute cholecystitis. 2. Colonic distention with air-fluid levels which may represent ileus or pseudo obstruction, no definite evidence of mass or colitis. 3. Mild sigmoid diverticulosis without CT evidence for acute diverticulitis. 4. Several large simple cysts in the left kidney. Nonvisualization of the right kidney. 5. Mild ascites and moderate bilateral pleural effusions. 09/29/16 Abd XR- Moderately dilated bowel loops at the mid to upper abdomen right more than left. If clinically warranted further assessment by CT is suggested. Pureed diet with thin liquids s/p passing of swallow eval Hematology: nasal packing removed- epistaxis resolved WBC 13.9- Hgb/Hct stable : 11.2/35.5 ( improved)- Monitor Endocrine: Maintain euglycemia HbA1c- 5.9 Insulin Sliding Scale protocol Renal: Initial KAYLEN improving. BUN/Cr: 38/1.3 Hypokalemia- repleted ID: U/A negative, UC negative Blood Cx negative DC Abx 10/03/16 : Perez in place MSK: turn 2 qh to prevent bed sores Palliative Care: Palliative Care Consult Placed- F/U Prophylaxis- Pepcid 20mg IV daily Lovenox 40mg sc HELD due to epistaxis event, SCDs in place Ensure Enlive - three times a day <Kendrick Yo S - Last Filed: 10/15/16 17:26> CCU Objective - Vital Signs / Intake & Output Vital Signs (Last 4 hours): Vital Signs Pulse Resp BP Pulse Ox 10/15/16 16:30 82 16 98 10/15/16 16:01 85 16 122/59 L 97 10/15/16 16:00 84 17 10/15/16 15:30 86 16 98 10/15/16 15:00 88 22 138/79 99 10/15/16 14:30 83 16 99 10/15/16 14:01 88 16 137/75 98 10/15/16 14:00 92 H 16 97 10/15/16 13:30 79 16 99 Intake and Output (Last 8hrs): Intake & Output 10/15/16 10/15/16 10/15/16 06:59 14:59 22:59 Intake Total 580 240 60 Output Total 530 525 135 Balance 50 -285 -75 Weight 198 lb 6.656 oz Intake: Intake, IV Amount 100 Right Medial Port 100 Subclavian Tube Feeding 480 240 60 Output: Urine 530 525 135 Urethral (Perez) 530 525 135 - Medications Active Medications: Active Medications Generic Name Dose Route Start Last Admin Trade Name Freq PRN Reason Stop Dose Admin Albuterol/Ipratropium 3 ml 10/15/16 08:00 10/15/16 16:15 Duoneb 3 Mg/0.5 Mg (3 Ml) Ud INH 3 ml RQ4 KAILA Administration Aspirin 81 mg 09/24/16 18:30 10/05/16 09:14 Aspirin Chewable PO 81 mg DAILY KAILA Administration Budesonide 0.5 mg 10/02/16 20:00 10/15/16 07:32 Pulmicort Respules INH 0.5 mg RQ12 KAILA Administration Clopidogrel Bisulfate 75 mg 09/26/16 10:00 10/05/16 09:14 Plavix PO 75 mg DAILY KAILA Administration Diltiazem HCl 60 mg 10/10/16 14:00 10/15/16 14:56 Cardizem GT 60 mg QID KAILA Administration Enoxaparin Sodium 40 mg 09/26/16 13:00 10/05/16 09:14 Lovenox SC 40 mg DAILY KAILA Administration Famotidine 20 mg 10/08/16 10:00 10/15/16 11:14 Pepcid IVP 20 mg DAILY KAILA Administration Doxycycline Hyclate 100 mg/ 100 mls @ 100 mls/hr 10/13/16 09:00 10/15/16 10:00 Sodium Chloride IVPB 100 mls/hr Q12H KAILA Administration Metronidazole 100 mls @ 100 mls/hr 10/13/16 08:00 10/15/16 15:02 Flagyl IVPB 100 mls/hr Q8H KAILA Administration Insulin Human Regular 0 unit 10/09/16 00:01 10/15/16 06:27 Novolin R SC Not Given Q6H [facility] Protocol Lisinopril 20 mg 10/05/16 18:00 10/15/16 11:15 Zestril NG 20 mg BID KAILA Administration Methylprednisolone 20 mg 10/07/16 10:00 10/15/16 11:14 Solu-Medrol IV 20 mg DAILY KAILA Administration Midazolam HCl 2 mg 10/13/16 12:35 10/14/16 06:54 Versed Inj IVP 2 mg Q4H PRN Administration Agitation Polyethylene Glycol 17 gm 10/06/16 10:00 10/15/16 11:19 Miralax PO Not Given DAILY KAILA Rosuvastatin Calcium 10 mg 09/23/16 22:00 10/14/16 21:48 Crestor PO 10 mg HS KAILA Administration - Patient Studies Lab Studies: Lab Studies 10/15/16 10/15/16 10/15/16 Range/Units 16:19 16:01 12:31 WBC (4.8-10.8) K/uL RBC (3.80-5.20) Mil/uL Hgb (11.0-16.0) g/dL Hct (34.0-47.0) % MCV (81.0-99.0) fL MCH (27.0-31.0) pg MCHC (33.0-37.0) g/dL RDW (11.5-14.5) % Plt Count (130-400) K/uL MPV (7.2-11.7) fL Neut % (Auto) (50.0-75.0) % Lymph % (Auto) (20.0-40.0) % Green % (Auto) (0.0-10.0) % Eos % (Auto) (0.0-4.0) % Baso % (Auto) (0.0-2.0) % Neut # (1.8-7.0) K/uL Lymph # (1.0-4.3) K/uL Green # (0.0-0.8) K/uL Eos # (0.0-0.7) K/uL Baso # (0.0-0.2) K/uL Neutrophils % (Manual) (50-75) % Band Neutrophils % (0-2) % Lymphocytes % (Manual) (20-40) % Monocytes % (Manual) (0-10) % Platelet Estimate (NORMAL) Poikilocytosis (manual Anisocytosis (manual) Tear Drop Cells Puncture Site pCO2 (35-45) mm/Hg pO2 (80-100) mm/Hg HCO3 (21-28) mmol/L ABG pH (7.35-7.45) ABG Total CO2 (22-28) mmol/L ABG O2 Saturation (95-98) % ABG Base Excess (-2.0-3.0) mmol/L ABG Hemoglobin (11.7-17.4) g/dL ABG Carboxyhemoglobin (0.5-1.5) % POC ABG HHb (Measured) (0.0-5.0) % ABG Methemoglobin (0.0-3.0) % Fish Test A-a O2 Difference mm/Hg Respiratory Index Hgb O2 Saturation (95.0-98.0) % Mechanical Rate FiO2 % Tidal Volume PEEP Sodium (132-148) mmol/L Potassium (3.6-5.2) mmol/L Chloride (98-107) mmol/L Carbon Dioxide (22-30) mmol/L Anion Gap (10-20) BUN (7-17) mg/dL Creatinine (0.7-1.2) MG/DL Est GFR ( Amer) Est GFR (Non-Af Amer) POC Glucose (mg/dL) 169 H (65-110) mg/dL Random Glucose (65-105) mg/dL Lactic Acid 0.7 (0.7-2.1) mmol/L Calcium (8.6-10.4) mg/dl Phosphorus (2.5-4.5) mg/dL Magnesium (1.6-2.3) mg/dL Total Bilirubin (0.2-1.3) mg/dL AST (14-36) U/L ALT (9-52) U/L Alkaline Phosphatase (38-126) U/L Lactate Dehydrogenase 728 H (313-618) U/L Total Protein (6.3-8.3) g/dL Albumin (3.5-5.0) g/dL Globulin (2.2-3.9) gm/dL Albumin/Globulin Ratio (1.0-2.1) Fluid Source Pleural/thoracentesi 10/15/16 10/15/16 10/15/16 Range/Units 06:22 05:53 05:12 WBC 13.9 H (4.8-10.8) K/uL RBC 3.85 (3.80-5.20) Mil/uL Hgb 11.2 D (11.0-16.0) g/dL Hct 35.7 (34.0-47.0) % MCV 92.7 (81.0-99.0) fL MCH 29.2 (27.0-31.0) pg MCHC 31.4 L (33.0-37.0) g/dL RDW 15.1 H (11.5-14.5) % Plt Count 132 (130-400) K/uL MPV 10.4 (7.2-11.7) fL Neut % (Auto) 92.4 H (50.0-75.0) % Lymph % (Auto) 3.9 L (20.0-40.0) % Green % (Auto) 3.2 (0.0-10.0) % Eos % (Auto) 0.1 (0.0-4.0) % Baso % (Auto) 0.4 (0.0-2.0) % Neut # 12.9 H (1.8-7.0) K/uL Lymph # 0.5 L (1.0-4.3) K/uL Green # 0.4 (0.0-0.8) K/uL Eos # 0.0 (0.0-0.7) K/uL Baso # 0.1 (0.0-0.2) K/uL Neutrophils % (Manual) 88 H (50-75) % Band Neutrophils % 7 H (0-2) % Lymphocytes % (Manual) 3 L (20-40) % Monocytes % (Manual) 2 (0-10) % Platelet Estimate Normal (NORMAL) Poikilocytosis (manual Slight Anisocytosis (manual) Slight Tear Drop Cells Slight Puncture Site Rrad pCO2 40 (35-45) mm/Hg pO2 85 (80-100) mm/Hg HCO3 24.4 (21-28) mmol/L ABG pH 7.39 (7.35-7.45) ABG Total CO2 25.4 (22-28) mmol/L ABG O2 Saturation 98.6 H (95-98) % ABG Base Excess -0.7 (-2.0-3.0) mmol/L ABG Hemoglobin 11.1 L (11.7-17.4) g/dL ABG Carboxyhemoglobin 1.9 H (0.5-1.5) % POC ABG HHb (Measured) 1.4 (0.0-5.0) % ABG Methemoglobin 1.4 (0.0-3.0) % Fish Test Pos A-a O2 Difference 222.0 mm/Hg Respiratory Index 2.6 Hgb O2 Saturation 95.4 (95.0-98.0) % Mechanical Rate 16 FiO2 50.0 % Tidal Volume 400 PEEP 5 Sodium 148 (132-148) mmol/L Potassium 3.2 L (3.6-5.2) mmol/L Chloride 110 H (98-107) mmol/L Carbon Dioxide 24 (22-30) mmol/L Anion Gap 17 (10-20) BUN 38 H (7-17) mg/dL Creatinine 1.3 H (0.7-1.2) MG/DL Est GFR ( Amer) 47 Est GFR (Non-Af Amer) 39 POC Glucose (mg/dL) 136 H (65-110) mg/dL Random Glucose 116 H (65-105) mg/dL Lactic Acid (0.7-2.1) mmol/L Calcium 8.1 L (8.6-10.4) mg/dl Phosphorus 3.3 (2.5-4.5) mg/dL Magnesium 1.7 (1.6-2.3) mg/dL Total Bilirubin 0.4 (0.2-1.3) mg/dL AST 29 (14-36) U/L ALT 46 (9-52) U/L Alkaline Phosphatase 58 (38-126) U/L Lactate Dehydrogenase (313-618) U/L Total Protein 4.8 L (6.3-8.3) g/dL Albumin 2.5 L (3.5-5.0) g/dL Globulin 2.3 (2.2-3.9) gm/dL Albumin/Globulin Ratio 1.1 (1.0-2.1) Fluid Source 10/15/16 10/14/16 Range/Units 00:13 18:09 WBC (4.8-10.8) K/uL RBC (3.80-5.20) Mil/uL Hgb (11.0-16.0) g/dL Hct (34.0-47.0) % MCV (81.0-99.0) fL MCH (27.0-31.0) pg MCHC (33.0-37.0) g/dL RDW (11.5-14.5) % Plt Count (130-400) K/uL MPV (7.2-11.7) fL Neut % (Auto) (50.0-75.0) % Lymph % (Auto) (20.0-40.0) % Green % (Auto) (0.0-10.0) % Eos % (Auto) (0.0-4.0) % Baso % (Auto) (0.0-2.0) % Neut # (1.8-7.0) K/uL Lymph # (1.0-4.3) K/uL Green # (0.0-0.8) K/uL Eos # (0.0-0.7) K/uL Baso # (0.0-0.2) K/uL Neutrophils % (Manual) (50-75) % Band Neutrophils % (0-2) % Lymphocytes % (Manual) (20-40) % Monocytes % (Manual) (0-10) % Platelet Estimate (NORMAL) Poikilocytosis (manual Anisocytosis (manual) Tear Drop Cells Puncture Site pCO2 (35-45) mm/Hg pO2 (80-100) mm/Hg HCO3 (21-28) mmol/L ABG pH (7.35-7.45) ABG Total CO2 (22-28) mmol/L ABG O2 Saturation (95-98) % ABG Base Excess (-2.0-3.0) mmol/L ABG Hemoglobin (11.7-17.4) g/dL ABG Carboxyhemoglobin (0.5-1.5) % POC ABG HHb (Measured) (0.0-5.0) % ABG Methemoglobin (0.0-3.0) % Fish Test A-a O2 Difference mm/Hg Respiratory Index Hgb O2 Saturation (95.0-98.0) % Mechanical Rate FiO2 % Tidal Volume PEEP Sodium (132-148) mmol/L Potassium (3.6-5.2) mmol/L Chloride (98-107) mmol/L Carbon Dioxide (22-30) mmol/L Anion Gap (10-20) BUN (7-17) mg/dL Creatinine (0.7-1.2) MG/DL Est GFR ( Amer) Est GFR (Non-Af Amer) POC Glucose (mg/dL) 149 H 202 H (65-110) mg/dL Random Glucose (65-105) mg/dL Lactic Acid (0.7-2.1) mmol/L Calcium (8.6-10.4) mg/dl Phosphorus (2.5-4.5) mg/dL Magnesium (1.6-2.3) mg/dL Total Bilirubin (0.2-1.3) mg/dL AST (14-36) U/L ALT (9-52) U/L Alkaline Phosphatase (38-126) U/L Lactate Dehydrogenase (313-618) U/L Total Protein (6.3-8.3) g/dL Albumin (3.5-5.0) g/dL Globulin (2.2-3.9) gm/dL Albumin/Globulin Ratio (1.0-2.1) Fluid Source Laboratory Results - last 24 hr 10/14/16 10/15/16 10/15/16 18:09 00:13 05:12 WBC RBC Hgb Hct MCV MCH MCHC RDW Plt Count MPV Neut % (Auto) Lymph % (Auto) Green % (Auto) Eos % (Auto) Baso % (Auto) Neut # Lymph # Green # Eos # Baso # Neutrophils % (Manual) Band Neutrophils % Lymphocytes % (Manual) Monocytes % (Manual) Platelet Estimate Poikilocytosis (manual Anisocytosis (manual) Tear Drop Cells Puncture Site Rrad pCO2 40 pO2 85 HCO3 24.4 ABG pH 7.39 ABG Total CO2 25.4 ABG O2 Saturation 98.6 H ABG Base Excess -0.7 ABG Hemoglobin 11.1 L ABG Carboxyhemoglobin 1.9 H POC ABG HHb (Measured) 1.4 ABG Methemoglobin 1.4 Fish Test Pos A-a O2 Difference 222.0 Respiratory Index 2.6 Hgb O2 Saturation 95.4 Mechanical Rate 16 FiO2 50.0 Tidal Volume 400 PEEP 5 Sodium Potassium Chloride Carbon Dioxide Anion Gap BUN Creatinine Est GFR ( Amer) Est GFR (Non-Af Amer) POC Glucose (mg/dL) 202 H 149 H Random Glucose Lactic Acid Calcium Phosphorus Magnesium Total Bilirubin AST ALT Alkaline Phosphatase Lactate Dehydrogenase Total Protein Albumin Globulin Albumin/Globulin Ratio Fluid Source 10/15/16 10/15/16 10/15/16 05:53 06:22 12:31 WBC 13.9 H RBC 3.85 Hgb 11.2 D Hct 35.7 MCV 92.7 MCH 29.2 MCHC 31.4 L RDW 15.1 H Plt Count 132 MPV 10.4 Neut % (Auto) 92.4 H Lymph % (Auto) 3.9 L Green % (Auto) 3.2 Eos % (Auto) 0.1 Baso % (Auto) 0.4 Neut # 12.9 H Lymph # 0.5 L Green # 0.4 Eos # 0.0 Baso # 0.1 Neutrophils % (Manual) 88 H Band Neutrophils % 7 H Lymphocytes % (Manual) 3 L Monocytes % (Manual) 2 Platelet Estimate Normal Poikilocytosis (manual Slight Anisocytosis (manual) Slight Tear Drop Cells Slight Puncture Site pCO2 pO2 HCO3 ABG pH ABG Total CO2 ABG O2 Saturation ABG Base Excess ABG Hemoglobin ABG Carboxyhemoglobin POC ABG HHb (Measured) ABG Methemoglobin Fish Test A-a O2 Difference Respiratory Index Hgb O2 Saturation Mechanical Rate FiO2 Tidal Volume PEEP Sodium 148 Potassium 3.2 L Chloride 110 H Carbon Dioxide 24 Anion Gap 17 BUN 38 H Creatinine 1.3 H Est GFR ( Amer) 47 Est GFR (Non-Af Amer) 39 POC Glucose (mg/dL) 136 H 169 H Random Glucose 116 H Lactic Acid Calcium 8.1 L Phosphorus 3.3 Magnesium 1.7 Total Bilirubin 0.4 AST 29 ALT 46 Alkaline Phosphatase 58 Lactate Dehydrogenase Total Protein 4.8 L Albumin 2.5 L Globulin 2.3 Albumin/Globulin Ratio 1.1 Fluid Source 10/15/16 10/15/16 16:01 16:19 WBC RBC Hgb Hct MCV MCH MCHC RDW Plt Count MPV Neut % (Auto) Lymph % (Auto) Green % (Auto) Eos % (Auto) Baso % (Auto) Neut # Lymph # [place] # Eos # Baso # Neutrophils % (Manual) Band Neutrophils % Lymphocytes % (Manual) Monocytes % (Manual) Platelet Estimate Poikilocytosis (manual Anisocytosis (manual) Tear Drop Cells Puncture Site pCO2 pO2 HCO3 ABG pH ABG Total CO2 ABG O2 Saturation ABG Base Excess ABG Hemoglobin ABG Carboxyhemoglobin POC ABG HHb (Measured) ABG Methemoglobin Fish Test A-a O2 Difference Respiratory Index Hgb O2 Saturation Mechanical Rate FiO2 Tidal Volume PEEP Sodium Potassium Chloride Carbon Dioxide Anion Gap BUN Creatinine Est GFR ( Amer) Est GFR (Non-Af Amer) POC Glucose (mg/dL) Random Glucose Lactic Acid 0.7 Calcium Phosphorus Magnesium Total Bilirubin AST ALT Alkaline Phosphatase Lactate Dehydrogenase 728 H Total Protein Albumin Globulin Albumin/Globulin Ratio Fluid Source Pleural/thoracentesi Assessment/Plan (1) Acute respiratory failure with hypoxia and hypercarbia Current Visit: Yes Status: Resolved Comment: Patient was reintubated Continue ventilatory support and reduce FiO2 as tolerated wean as tolerated Thoracentesis by IR Continue antibiotics IV steroids and nebulizer treatment Seen by GI for colonic distention (2) COPD (chronic obstructive pulmonary disease) Current Visit: Yes Status: Chronic (3) Acute IA Current Visit: Yes Status: Acute (4) Leucocytosis Current Visit: Yes Status: Acute Attending/Attestation - Attestation I have personally seen and examined this patient.: Yes I have fully participated in the care of the patient.: Yes I have reviewed all pertinent clinical information: Yes Notes (Text): 10/15/16 17:24 Patient seen and examined in the intensive care unit. Case discussed with staff in the morning rounds. Status post thoracentesis, 3 50 mL of straw-colored fluid removed Tolerating CPAP since morning Continue antibiotics, bronchodilators
[2016-10-15 16:03] LABS: BODY FLUID TYPE PLEURAL/THORACENTESI
[2016-10-15] MEDS ORDERED: Iohexol 240 (50 ml) PO ONE (16:30)
--- NOTE | 2016-10-15 18:07 | RAD ---
HISTORY: ileus COMPARISON: 10/11/2016 FINDINGS: BOWEL: An enteric tube terminates in the stomach. There is moderate gaseous distension of the stomach. There is persistent moderate gaseous distension of the ascending colon. There is new moderate gaseous distension of the transverse colon. The small bowel loops are normal in caliber. BONES: Normal. OTHER FINDINGS: None. IMPRESSION: Interval development of gaseous distension of the stomach and transverse colon. Persistent gaseous distention of the ascending colon. Normal caliber small bowel loops.
[2016-10-15 20:20] LABS: BODY FLUID TOTAL COUNT 100 (0-0)
[2016-10-15 20:28] LABS: BF GROSS APPEARANCE SL CLOUDY (CLEAR)
--- NOTE | 2016-10-15 23:29 | CT ---
EXAM: CT Abdomen and Pelvis Without Intravenous Contrast. CLINICAL HISTORY: 86 years old, female; Condition or disease; Other: Sbo; Lung condition and disease; Pleural effusion; Other: Pneumonia; Additional info: Assess possible pneumonia/effusion, R/O obstructio TECHNIQUE: Axial computed tomography images of the abdomen and pelvis without intravenous contrast. This CT exam was performed using one or more of the following dose reduction techniques: automated exposure control, adjustment of the mA and/or kV according to patient size, and/or use of iterative reconstruction technique. Coronal and sagittal reformatted images were created and reviewed. COMPARISON: There are no prior studies for comparison. FINDINGS: Lower thorax: Referred to on report for chest findings ABDOMEN: Liver: No acute abnormalities are seen in the liver. Gallbladder and bile ducts: Gallbladder is incompletely distended. There are calcified stones. Common bile duct is not well-visualized. Pancreas: Pancreas is mildly atrophic. Spleen: unremarkable Adrenals: Adrenals are really visualized. Kidneys and ureters: Right kidney is absent. There are multiple large left renal cysts. There is no pelvocaliectasis or ureterectasis. Stomach and bowel: Stomach is incompletely distended. There is an air-fluid level. There is a nasogastric tube. Rotation is normal. There is a small amount of contrast in small bowel. There is mild small bowel distention. There is no small bowel obstruction. Appendix is unremarkable. Terminal ileum is unremarkable Cecum is mildly dilated approximately 9 cm in diameter. Colon is dilated with air-fluid levels. There is air and fluid to the rectum. Appendix: See stomach and bowel PELVIS: Bladder: Bladder is almost completely empty. There is bladder wall thickening. There is a Antony catheter. Reproductive: Uterus is prominent with calcified fibroid. Adnexa are not well-demonstrated. ABDOMEN and PELVIS: Intraperitoneal space: There is ascites in the upper abdomen, increased since the prior study. There is a small amount of fluid in the pelvis. There is no free air. Bones/joints: Bony structures are diffusely osteopenic. There degenerative changes. There is vertebroplasty at T12. Soft tissues: There is body wall edema Vasculature: There are vascular calcifications. Lymph nodes: There is shotty adenopathy. IMPRESSION: Dilated colon with air and fluid to the rectum consistent with colonic ileus, cecal diameter of approximately 9 cm; increasing ascites; no acute solid visceral abnormality; gallstones; nasogastric tube in place Additional findings as described above. EXAM: CT Chest Without Intravenous Contrast. CLINICAL HISTORY: 86 years old, female; Condition or disease; Other: Sbo; Lung condition and disease; Pleural effusion; Other: Pneumonia; Additional info: Assess possible pneumonia/effusion, R/O obstructio TECHNIQUE: Axial computed tomography images of the chest without intravenous contrast. This CT exam was performed using one or more of the following dose reduction techniques: automated exposure control, adjustment of the mA and/or kV according to patient size, and/or use of iterative reconstruction technique. Coronal and sagittal reformatted images were created and reviewed. EXAM DATE/TIME: 10/15/2016 8:00 AM COMPARISON: CT - ABD PELVIS PO CONTRA 10/06/2016 3:54:34 PM FINDINGS: Tubes, lines and devices: An endotracheal tube is in place. Tip of the tube is at the level of the aortic arch. A nasogastric tube is in place and projects below the diaphragm. There is a right subclavian catheter with the tip in the low superior vena cava Lungs and pleural spaces: Trachea distal to the endotracheal tube and main bronchi are patent. Moderately large bilateral pleural effusions. There are atelectatic changes in both lower lobes left greater than right. There is compressive atelectasis in the upper lobes. There is nodular scarring in the right middle lobe. There is minimal scarring in the lingula. Heart and vasculature: The heart is enlarged. There are coronary calcifications.There is fluid in the pericardial recesses.Aorta and main pulmonary artery are normal in caliber.There are vascular calcifications. Mediastinum: The esophagus is collapsed around the nasogastric tube. Lack of contrast limits evaluation of the mediastinum and tata. There are no pathologically enlarged mediastinal nodes.Tata are not optimally evaluated without contrast material. Thyroid: Thyroid is not optimally demonstrated. Bones/joints: Bony structures are osteopenic. There are nondisplaced fractures of the right fifth sixth and seventh ribs. There are minimally displaced fractures of the left third fourth fifth and 10th ribs. There is compression fracture at T8. There is a vertebroplasty at T12.There are degenerative changes in the osseus structures. Soft tissues: unremarkable Upper abdomen: Referring prior report for abdominal findings IMPRESSION: Tubes and catheters as described; bilateral pleural effusions with partial atelectasis of both lower lobes and mild compressive atelectasis in the upper lobes; cardiomegaly and atherosclerotic disease; bilateral rib fractures Additional findings as described above.
--- NOTE | 2016-10-16 00:26 | CP.CCUPN ---
CCU Objective - Vital Signs / Intake & Output Vital Signs (Last 4 hours): Vital Signs Pulse Resp BP Pulse Ox 10/15/16 23:00 86 20 129/73 99 10/15/16 22:30 82 16 100 10/15/16 22:00 92 H 19 125/71 100 10/15/16 21:30 89 18 99 10/15/16 21:00 90 21 121/69 98 10/15/16 20:55 92 H 21 122/59 L 99 10/15/16 20:43 84 17 Intake and Output (Last 8hrs): Intake & Output 10/15/16 10/15/16 10/16/16 14:59 22:59 06:59 Intake Total 240 250 0 Output Total 525 450 45 Balance -285 -200 -45 Intake: Intake, IV Amount 100 Right Medial Port 100 Subclavian Tube Feeding 240 150 0 Output: Urine 525 450 45 Urethral (Perez) 525 450 45 - Physical Exam Head: Positive for: Atraumatic, Normocephalic, Other (ET Tube in place) Pupils: Positive for: PERRL Extroacular Muscles: Positive for: EOMI Conjunctiva: Positive for: Injected Mouth: Positive for: Dry Nose (Internal): Positive for: Other (Nasal packing in place) Neck: Positive for: Normal Range of Motion Respiratory/Chest: Positive for: Clear to Auscultation, Good Air Exchange, Rales. Negative for: Respiratory Distress, Accessory Muscle Use Cardiovascular: Positive for: Normal S1, S2, Irregular Rhythm. Negative for: Regular Rate and Rhythm, Murmurs Abdomen: Positive for: Distention, Normal Bowel Sounds. Negative for: Peritoneal Signs, Rebound Genitourinary/Pelvic Exam: Positive for: Other (perez in place) Upper Extremity: Positive for: Normal Inspection. Negative for: Cyanosis, Edema Lower Extremity: Positive for: Normal Inspection. Negative for: Edema, CALF TENDERNESS Neurological: Positive for: Other (sedated) Skin: Positive for: Warm, Dry Psychiatric: Positive for: Alert - Medications Active Medications: Active Medications Generic Name Dose Route Start Last Admin Trade Name Freq PRN Reason Stop Dose Admin Albuterol/Ipratropium 3 ml 10/15/16 08:00 10/15/16 23:24 Duoneb 3 Mg/0.5 Mg (3 Ml) Ud INH 3 ml RQ4 KAILA Administration Aspirin 81 mg 09/24/16 18:30 10/05/16 09:14 Aspirin Chewable PO 81 mg DAILY KAILA Administration Budesonide 0.5 mg 10/02/16 20:00 10/15/16 19:13 Pulmicort Respules INH 0.5 mg RQ12 KAILA Administration Clopidogrel Bisulfate 75 mg 09/26/16 10:00 10/05/16 09:14 Plavix PO 75 mg DAILY KAILA Administration Diltiazem HCl 60 mg 10/10/16 14:00 10/15/16 22:44 Cardizem GT 60 mg QID KAILA Administration Enoxaparin Sodium 40 mg 09/26/16 13:00 10/05/16 09:14 Lovenox SC 40 mg DAILY KAILA Administration Famotidine 20 mg 10/08/16 10:00 10/15/16 11:14 Pepcid IVP 20 mg DAILY KAILA Administration Doxycycline Hyclate 100 mg/ 100 mls @ 100 mls/hr 10/13/16 09:00 10/15/16 21:36 Sodium Chloride IVPB 100 mls/hr Q12H KAILA Administration Metronidazole 100 mls @ 100 mls/hr 10/13/16 08:00 10/15/16 15:02 Flagyl IVPB 100 mls/hr Q8H KAILA Administration Insulin Human Regular 0 unit 10/09/16 00:01 10/15/16 18:35 Novolin R SC Not Given Q6H [facility] Protocol Lisinopril 20 mg 10/05/16 18:00 10/15/16 18:34 Zestril NG 20 mg BID KAILA Administration Methylprednisolone 20 mg 10/07/16 10:00 10/15/16 11:14 Solu-Medrol IV 20 mg DAILY [facility] Administration Midazolam HCl 2 mg 10/13/16 12:35 10/14/16 06:54 Versed Inj IVP 2 mg Q4H PRN Administration Agitation Polyethylene Glycol 17 gm 10/06/16 10:00 10/15/16 11:19 Miralax PO Not Given DAILY [facility] Rosuvastatin Calcium 10 mg 09/23/16 22:00 10/15/16 22:44 Crestor PO 10 mg HS KAILA Administration - Patient Studies Lab Studies: Microbiology Studies 10/15/16 16:04 Gram Stain - Final Pleural Fluid Lab Studies 03/22/17 03/21/17 03/21/17 Range/Units 00:01 17:47 16:19 WBC (4.8-10.8) K/uL RBC (3.80-5.20) Mil/uL Hgb (11.0-16.0) g/dL Hct (34.0-47.0) % MCV (81.0-99.0) fL MCH (27.0-31.0) pg MCHC (33.0-37.0) g/dL RDW (11.5-14.5) % Plt Count (130-400) K/uL MPV (7.2-11.7) fL Neut % (Auto) (50.0-75.0) % Lymph % (Auto) (20.0-40.0) % [place] % (Auto) (0.0-10.0) % Eos % (Auto) (0.0-4.0) % Baso % (Auto) (0.0-2.0) % Neut # (1.8-7.0) K/uL Lymph # (1.0-4.3) K/uL [place] # (0.0-0.8) K/uL Eos # (0.0-0.7) K/uL Baso # (0.0-0.2) K/uL Neutrophils % (Manual) (50-75) % Band Neutrophils % (0-2) % Lymphocytes % (Manual) (20-40) % Monocytes % (Manual) (0-10) % Platelet Estimate (NORMAL) Poikilocytosis (manual Anisocytosis (manual) Tear Drop Cells Puncture Site pCO2 (35-45) mm/Hg pO2 (80-100) mm/Hg HCO3 (21-28) mmol/L ABG pH (7.35-7.45) ABG Total CO2 (22-28) mmol/L ABG O2 Saturation (95-98) % ABG Base Excess (-2.0-3.0) mmol/L ABG Hemoglobin (11.7-17.4) g/dL ABG Carboxyhemoglobin (0.5-1.5) % POC ABG HHb (Measured) (0.0-5.0) % ABG Methemoglobin (0.0-3.0) % Fish Test A-a O2 Difference mm/Hg Respiratory Index Hgb O2 Saturation (95.0-98.0) % Mechanical Rate FiO2 % Tidal Volume PEEP Sodium (132-148) mmol/L Potassium (3.6-5.2) mmol/L Chloride (98-107) mmol/L Carbon Dioxide (22-30) mmol/L Anion Gap (10-20) BUN (7-17) mg/dL Creatinine (0.7-1.2) MG/DL Est GFR ( Amer) Est GFR (Non-Af Amer) POC Glucose (mg/dL) 171 H 187 H (65-110) mg/dL Random Glucose (65-105) mg/dL Lactic Acid 0.7 (0.7-2.1) mmol/L Calcium (8.6-10.4) mg/dl Phosphorus (2.5-4.5) mg/dL Magnesium (1.6-2.3) mg/dL Total Bilirubin (0.2-1.3) mg/dL AST (14-36) U/L ALT (9-52) U/L Alkaline Phosphatase (38-126) U/L Lactate Dehydrogenase 728 H (313-618) U/L Total Protein (6.3-8.3) g/dL Albumin (3.5-5.0) g/dL Globulin (2.2-3.9) gm/dL Albumin/Globulin Ratio (1.0-2.1) Fluid Source Fluid Appearance (CLEAR) Fluid WBC (0.0-300.0) /mm3 Fluid RBC (0.0-0.0) /mm3 Fluid Tot Cell Count (0-0) Fluid Neutrophils (0-0) % Fluid Lymphocytes (0-0) % Fld Monocyte/Macrophag (0-0) % Fluid Comment 10/15/16 10/15/16 10/15/16 Range/Units 16:01 12:31 06:22 WBC (4.8-10.8) K/uL RBC (3.80-5.20) Mil/uL Hgb (11.0-16.0) g/dL Hct (34.0-47.0) % MCV (81.0-99.0) fL MCH (27.0-31.0) pg MCHC (33.0-37.0) g/dL RDW (11.5-14.5) % Plt Count (130-400) K/uL MPV (7.2-11.7) fL Neut % (Auto) (50.0-75.0) % Lymph % (Auto) (20.0-40.0) % [place] % (Auto) (0.0-10.0) % Eos % (Auto) (0.0-4.0) % Baso % (Auto) (0.0-2.0) % Neut # (1.8-7.0) K/uL Lymph # (1.0-4.3) K/uL [place] # (0.0-0.8) K/uL Eos # (0.0-0.7) K/uL Baso # (0.0-0.2) K/uL Neutrophils % (Manual) (50-75) % Band Neutrophils % (0-2) % Lymphocytes % (Manual) (20-40) % Monocytes % (Manual) (0-10) % Platelet Estimate (NORMAL) Poikilocytosis (manual Anisocytosis (manual) Tear Drop Cells Puncture Site pCO2 (35-45) mm/Hg pO2 (80-100) mm/Hg HCO3 (21-28) mmol/L ABG pH (7.35-7.45) ABG Total CO2 (22-28) mmol/L ABG O2 Saturation (95-98) % ABG Base Excess (-2.0-3.0) mmol/L ABG Hemoglobin (11.7-17.4) g/dL ABG Carboxyhemoglobin (0.5-1.5) % POC ABG HHb (Measured) (0.0-5.0) % ABG Methemoglobin (0.0-3.0) % Fish Test A-a O2 Difference mm/Hg Respiratory Index Hgb O2 Saturation (95.0-98.0) % Mechanical Rate FiO2 % Tidal Volume PEEP Sodium (132-148) mmol/L Potassium (3.6-5.2) mmol/L Chloride (98-107) mmol/L Carbon Dioxide (22-30) mmol/L Anion Gap (10-20) BUN (7-17) mg/dL Creatinine (0.7-1.2) MG/DL Est GFR ( Amer) Est GFR (Non-Af Amer) POC Glucose (mg/dL) 169 H 136 H (65-110) mg/dL Random Glucose (65-105) mg/dL Lactic Acid (0.7-2.1) mmol/L Calcium (8.6-10.4) mg/dl Phosphorus (2.5-4.5) mg/dL Magnesium (1.6-2.3) mg/dL Total Bilirubin (0.2-1.3) mg/dL AST (14-36) U/L ALT (9-52) U/L Alkaline Phosphatase (38-126) U/L Lactate Dehydrogenase (313-618) U/L Total Protein (6.3-8.3) g/dL Albumin (3.5-5.0) g/dL Globulin (2.2-3.9) gm/dL Albumin/Globulin Ratio (1.0-2.1) Fluid Source Pleural/thoracentesi Fluid Appearance Sl cloudy (CLEAR) Fluid WBC 486.0 H (0.0-300.0) /mm3 Fluid RBC 03105.0 H (0.0-0.0) /mm3 Fluid Tot Cell Count 100 H (0-0) Fluid Neutrophils 40.0 H (0-0) % Fluid Lymphocytes 43.0 H (0-0) % Fld Monocyte/Macrophag 17 H (0-0) % Fluid Comment 10/15/16 10/15/16 Range/Units 05:53 05:12 WBC 13.9 H (4.8-10.8) K/uL RBC 3.85 (3.80-5.20) Mil/uL Hgb 11.2 D (11.0-16.0) g/dL Hct 35.7 (34.0-47.0) % MCV 92.7 (81.0-99.0) fL MCH 29.2 (27.0-31.0) pg MCHC 31.4 L (33.0-37.0) g/dL RDW 15.1 H (11.5-14.5) % Plt Count 132 (130-400) K/uL MPV 10.4 (7.2-11.7) fL Neut % (Auto) 92.4 H (50.0-75.0) % Lymph % (Auto) 3.9 L (20.0-40.0) % [place] % (Auto) 3.2 (0.0-10.0) % Eos % (Auto) 0.1 (0.0-4.0) % Baso % (Auto) 0.4 (0.0-2.0) % Neut # 12.9 H (1.8-7.0) K/uL Lymph # 0.5 L (1.0-4.3) K/uL [place] # 0.4 (0.0-0.8) K/uL Eos # 0.0 (0.0-0.7) K/uL Baso # 0.1 (0.0-0.2) K/uL Neutrophils % (Manual) 88 H (50-75) % Band Neutrophils % 7 H (0-2) % Lymphocytes % (Manual) 3 L (20-40) % Monocytes % (Manual) 2 (0-10) % Platelet Estimate Normal (NORMAL) Poikilocytosis (manual Slight Anisocytosis (manual) Slight Tear Drop Cells Slight Puncture Site Rrad pCO2 40 (35-45) mm/Hg pO2 85 (80-100) mm/Hg HCO3 24.4 (21-28) mmol/L ABG pH 7.39 (7.35-7.45) ABG Total CO2 25.4 (22-28) mmol/L ABG O2 Saturation 98.6 H (95-98) % ABG Base Excess -0.7 (-2.0-3.0) mmol/L ABG Hemoglobin 11.1 L (11.7-17.4) g/dL ABG Carboxyhemoglobin 1.9 H (0.5-1.5) % POC ABG HHb (Measured) 1.4 (0.0-5.0) % ABG Methemoglobin 1.4 (0.0-3.0) % Fish Test Pos A-a O2 Difference 222.0 mm/Hg Respiratory Index 2.6 Hgb O2 Saturation 95.4 (95.0-98.0) % Mechanical Rate 16 FiO2 50.0 % Tidal Volume 400 PEEP 5 Sodium 148 (132-148) mmol/L Potassium 3.2 L (3.6-5.2) mmol/L Chloride 110 H (98-107) mmol/L Carbon Dioxide 24 (22-30) mmol/L Anion Gap 17 (10-20) BUN 38 H (7-17) mg/dL Creatinine 1.3 H (0.7-1.2) MG/DL Est GFR ( Amer) 47 Est GFR (Non-Af Amer) 39 POC Glucose (mg/dL) (65-110) mg/dL Random Glucose 116 H (65-105) mg/dL Lactic Acid (0.7-2.1) mmol/L Calcium 8.1 L (8.6-10.4) mg/dl Phosphorus 3.3 (2.5-4.5) mg/dL Magnesium 1.7 (1.6-2.3) mg/dL Total Bilirubin 0.4 (0.2-1.3) mg/dL AST 29 (14-36) U/L ALT 46 (9-52) U/L Alkaline Phosphatase 58 (38-126) U/L Lactate Dehydrogenase (313-618) U/L Total Protein 4.8 L (6.3-8.3) g/dL Albumin 2.5 L (3.5-5.0) g/dL Globulin 2.3 (2.2-3.9) gm/dL Albumin/Globulin Ratio 1.1 (1.0-2.1) Fluid Source Fluid Appearance (CLEAR) Fluid WBC (0.0-300.0) /mm3 Fluid RBC (0.0-0.0) /mm3 Fluid Tot Cell Count (0-0) Fluid Neutrophils (0-0) % Fluid Lymphocytes (0-0) % Fld Monocyte/Macrophag (0-0) % Fluid Comment Laboratory Results - last 24 hr 10/15/16 10/15/16 10/15/16 05:12 05:53 06:22 WBC 13.9 H RBC 3.85 Hgb 11.2 D Hct 35.7 MCV 92.7 MCH 29.2 MCHC 31.4 L RDW 15.1 H Plt Count 132 MPV 10.4 Neut % (Auto) 92.4 H Lymph % (Auto) 3.9 L [place] % (Auto) 3.2 Eos % (Auto) 0.1 Baso % (Auto) 0.4 Neut # 12.9 H Lymph # 0.5 L [place] # 0.4 Eos # 0.0 Baso # 0.1 Neutrophils % (Manual) 88 H Band Neutrophils % 7 H Lymphocytes % (Manual) 3 L Monocytes % (Manual) 2 Platelet Estimate Normal Poikilocytosis (manual Slight Anisocytosis (manual) Slight Tear Drop Cells Slight Puncture Site Rrad pCO2 40 pO2 85 HCO3 24.4 ABG pH 7.39 ABG Total CO2 25.4 ABG O2 Saturation 98.6 H ABG Base Excess -0.7 ABG Hemoglobin 11.1 L ABG Carboxyhemoglobin 1.9 H POC ABG HHb (Measured) 1.4 ABG Methemoglobin 1.4 Fish Test Pos A-a O2 Difference 222.0 Respiratory Index 2.6 Hgb O2 Saturation 95.4 Mechanical Rate 16 FiO2 50.0 Tidal Volume 400 PEEP 5 Sodium 148 Potassium 3.2 L Chloride 110 H Carbon Dioxide 24 Anion Gap 17 BUN 38 H Creatinine 1.3 H Est GFR ( Amer) 47 Est GFR (Non-Af Amer) 39 POC Glucose (mg/dL) 136 H Random Glucose 116 H Lactic Acid Calcium 8.1 L Phosphorus 3.3 Magnesium 1.7 Total Bilirubin 0.4 AST 29 ALT 46 Alkaline Phosphatase 58 Lactate Dehydrogenase Total Protein 4.8 L Albumin 2.5 L Globulin 2.3 Albumin/Globulin Ratio 1.1 Fluid Source Fluid Appearance Fluid WBC Fluid RBC Fluid Tot Cell Count Fluid Neutrophils Fluid Lymphocytes Fld Monocyte/Macrophag Fluid Comment 10/15/16 10/15/16 10/15/16 12:31 16:01 16:19 WBC RBC Hgb Hct MCV MCH MCHC RDW Plt Count MPV Neut % (Auto) Lymph % (Auto) [place] % (Auto) Eos % (Auto) Baso % (Auto) Neut # Lymph # [place] # Eos # Baso # Neutrophils % (Manual) Band Neutrophils % Lymphocytes % (Manual) Monocytes % (Manual) Platelet Estimate Poikilocytosis (manual Anisocytosis (manual) Tear Drop Cells Puncture Site pCO2 pO2 HCO3 ABG pH ABG Total CO2 ABG O2 Saturation ABG Base Excess ABG Hemoglobin ABG Carboxyhemoglobin POC ABG HHb (Measured) ABG Methemoglobin Fish Test A-a O2 Difference Respiratory Index Hgb O2 Saturation Mechanical Rate FiO2 Tidal Volume PEEP Sodium Potassium Chloride Carbon Dioxide Anion Gap BUN Creatinine Est GFR ( Amer) Est GFR (Non-Af Amer) POC Glucose (mg/dL) 169 H Random Glucose Lactic Acid 0.7 Calcium Phosphorus Magnesium Total Bilirubin AST ALT Alkaline Phosphatase Lactate Dehydrogenase 728 H Total Protein Albumin Globulin Albumin/Globulin Ratio Fluid Source Pleural/thoracentesi Fluid Appearance Sl cloudy Fluid WBC 486.0 H Fluid RBC 19418.0 H Fluid Tot Cell Count 100 H Fluid Neutrophils 40.0 H Fluid Lymphocytes 43.0 H Fld Monocyte/Macrophag 17 H Fluid Comment 10/15/16 10/16/16 17:47 00:01 WBC RBC Hgb Hct MCV MCH MCHC RDW Plt Count MPV Neut % (Auto) Lymph % (Auto) [place] % (Auto) Eos % (Auto) Baso % (Auto) Neut # Lymph # [place] # Eos # Baso # Neutrophils % (Manual) Band Neutrophils % Lymphocytes % (Manual) Monocytes % (Manual) Platelet Estimate Poikilocytosis (manual Anisocytosis (manual) Tear Drop Cells Puncture Site pCO2 pO2 HCO3 ABG pH ABG Total CO2 ABG O2 Saturation ABG Base Excess ABG Hemoglobin ABG Carboxyhemoglobin POC ABG HHb (Measured) ABG Methemoglobin Fish Test A-a O2 Difference Respiratory Index Hgb O2 Saturation Mechanical Rate FiO2 Tidal Volume PEEP Sodium Potassium Chloride Carbon Dioxide Anion Gap BUN Creatinine Est GFR ( Amer) Est GFR (Non-Af Amer) POC Glucose (mg/dL) 187 H 171 H Random Glucose Lactic Acid Calcium Phosphorus Magnesium Total Bilirubin AST ALT Alkaline Phosphatase Lactate Dehydrogenase Total Protein Albumin Globulin Albumin/Globulin Ratio Fluid Source Fluid Appearance Fluid WBC Fluid RBC Fluid Tot Cell Count Fluid Neutrophils Fluid Lymphocytes Fld Monocyte/Macrophag Fluid Comment Fingerstick Blood Sugar Results: 104 Assessment/Plan - Assessment and Plan (Free Text) Assessment: CT results called in by Radiologist 10/15/16 at 11:42pm.with caecal diameter of approximately 9cm.Results discussed with surgeon Dr Heck
--- NOTE | 2016-10-16 00:33 | CP.CCUPN ---
CCU Subjective - Physician Review Events Since Last Encounter (Free Text): 10/16/16 00:30 CCU Objective - Vital Signs / Intake & Output Vital Signs (Last 4 hours): Vital Signs Pulse Resp BP Pulse Ox 10/15/16 23:00 86 20 129/73 99 10/15/16 22:30 82 16 100 10/15/16 22:00 92 H 19 125/71 100 10/15/16 21:30 89 18 99 10/15/16 21:00 90 21 121/69 98 10/15/16 20:55 92 H 21 122/59 L 99 10/15/16 20:43 84 17 Intake and Output (Last 8hrs): Intake & Output 10/15/16 10/15/16 10/16/16 14:59 22:59 06:59 Intake Total 240 250 0 Output Total 525 450 45 Balance -285 -200 -45 Intake: Intake, IV Amount 100 Right Medial Port 100 Subclavian Tube Feeding 240 150 0 Output: Urine 525 450 45 Urethral (Antony) 525 450 45 - Medications Active Medications: Active Medications Generic Name Dose Route Start Last Admin Trade Name Freq PRN Reason Stop Dose Admin Albuterol/Ipratropium 3 ml 10/15/16 08:00 10/15/16 23:24 Duoneb 3 Mg/0.5 Mg (3 Ml) Ud INH 3 ml RQ4 KAILA Administration Aspirin 81 mg 09/24/16 18:30 10/05/16 09:14 Aspirin Chewable PO 81 mg DAILY KAILA Administration Budesonide 0.5 mg 10/02/16 20:00 10/15/16 19:13 Pulmicort Respules INH 0.5 mg RQ12 KAILA Administration Clopidogrel Bisulfate 75 mg 09/26/16 10:00 10/05/16 09:14 Plavix PO 75 mg DAILY KAILA Administration Diltiazem HCl 60 mg 10/10/16 14:00 10/15/16 22:44 Cardizem GT 60 mg QID KAILA Administration Enoxaparin Sodium 40 mg 09/26/16 13:00 10/05/16 09:14 Lovenox SC 40 mg DAILY KAILA Administration Famotidine 20 mg 10/08/16 10:00 10/15/16 11:14 Pepcid IVP 20 mg DAILY KAILA Administration Doxycycline Hyclate 100 mg/ 100 mls @ 100 mls/hr 10/13/16 09:00 10/15/16 21:36 Sodium Chloride IVPB 100 mls/hr Q12H KAILA Administration Metronidazole 100 mls @ 100 mls/hr 10/13/16 08:00 10/15/16 15:02 Flagyl IVPB 100 mls/hr Q8H KAILA Administration Insulin Human Regular 0 unit 10/09/16 00:01 10/15/16 18:35 Novolin R SC Not Given Q6H [facility] Protocol Lisinopril 20 mg 10/05/16 18:00 10/15/16 18:34 Zestril NG 20 mg BID KAILA Administration Methylprednisolone 20 mg 10/07/16 10:00 10/15/16 11:14 Solu-Medrol IV 20 mg DAILY KAILA Administration Midazolam HCl 2 mg 10/13/16 12:35 10/14/16 06:54 Versed Inj IVP 2 mg Q4H PRN Administration Agitation Polyethylene Glycol 17 gm 10/06/16 10:00 10/15/16 11:19 Miralax PO Not Given DAILY KAILA Rosuvastatin Calcium 10 mg 09/23/16 22:00 10/15/16 22:44 Crestor PO 10 mg HS KAILA Administration - Patient Studies Lab Studies: Microbiology Studies 10/15/16 16:04 Gram Stain - Final Pleural Fluid Lab Studies 10/16/16 10/15/16 10/15/16 Range/Units 00:01 17:47 16:19 WBC (4.8-10.8) K/uL RBC (3.80-5.20) Mil/uL Hgb (11.0-16.0) g/dL Hct (34.0-47.0) % MCV (81.0-99.0) fL MCH (27.0-31.0) pg MCHC (33.0-37.0) g/dL RDW (11.5-14.5) % Plt Count (130-400) K/uL MPV (7.2-11.7) fL Neut % (Auto) (50.0-75.0) % Lymph % (Auto) (20.0-40.0) % Linn % (Auto) (0.0-10.0) % Eos % (Auto) (0.0-4.0) % Baso % (Auto) (0.0-2.0) % Neut # (1.8-7.0) K/uL Lymph # (1.0-4.3) K/uL Linn # (0.0-0.8) K/uL Eos # (0.0-0.7) K/uL Baso # (0.0-0.2) K/uL Neutrophils % (Manual) (50-75) % Band Neutrophils % (0-2) % Lymphocytes % (Manual) (20-40) % Monocytes % (Manual) (0-10) % Platelet Estimate (NORMAL) Poikilocytosis (manual Anisocytosis (manual) Tear Drop Cells Puncture Site pCO2 (35-45) mm/Hg pO2 (80-100) mm/Hg HCO3 (21-28) mmol/L ABG pH (7.35-7.45) ABG Total CO2 (22-28) mmol/L ABG O2 Saturation (95-98) % ABG Base Excess (-2.0-3.0) mmol/L ABG Hemoglobin (11.7-17.4) g/dL ABG Carboxyhemoglobin (0.5-1.5) % POC ABG HHb (Measured) (0.0-5.0) % ABG Methemoglobin (0.0-3.0) % Fish Test A-a O2 Difference mm/Hg Respiratory Index Hgb O2 Saturation (95.0-98.0) % Mechanical Rate FiO2 % Tidal Volume PEEP Sodium (132-148) mmol/L Potassium (3.6-5.2) mmol/L Chloride (98-107) mmol/L Carbon Dioxide (22-30) mmol/L Anion Gap (10-20) BUN (7-17) mg/dL Creatinine (0.7-1.2) MG/DL Est GFR ( Amer) Est GFR (Non-Af Amer) POC Glucose (mg/dL) 171 H 187 H (65-110) mg/dL Random Glucose (65-105) mg/dL Lactic Acid 0.7 (0.7-2.1) mmol/L Calcium (8.6-10.4) mg/dl Phosphorus (2.5-4.5) mg/dL Magnesium (1.6-2.3) mg/dL Total Bilirubin (0.2-1.3) mg/dL AST (14-36) U/L ALT (9-52) U/L Alkaline Phosphatase (38-126) U/L Lactate Dehydrogenase 728 H (313-618) U/L Total Protein (6.3-8.3) g/dL Albumin (3.5-5.0) g/dL Globulin (2.2-3.9) gm/dL Albumin/Globulin Ratio (1.0-2.1) Fluid Source Fluid Appearance (CLEAR) Fluid WBC (0.0-300.0) /mm3 Fluid RBC (0.0-0.0) /mm3 Fluid Tot Cell Count (0-0) Fluid Neutrophils (0-0) % Fluid Lymphocytes (0-0) % Fld Monocyte/Macrophag (0-0) % Fluid Comment 10/15/16 10/15/16 10/15/16 Range/Units 16:01 12:31 06:22 WBC (4.8-10.8) K/uL RBC (3.80-5.20) Mil/uL Hgb (11.0-16.0) g/dL Hct (34.0-47.0) % MCV (81.0-99.0) fL MCH (27.0-31.0) pg MCHC (33.0-37.0) g/dL RDW (11.5-14.5) % Plt Count (130-400) K/uL MPV (7.2-11.7) fL Neut % (Auto) (50.0-75.0) % Lymph % (Auto) (20.0-40.0) % Linn % (Auto) (0.0-10.0) % Eos % (Auto) (0.0-4.0) % Baso % (Auto) (0.0-2.0) % Neut # (1.8-7.0) K/uL Lymph # (1.0-4.3) K/uL Linn # (0.0-0.8) K/uL Eos # (0.0-0.7) K/uL Baso # (0.0-0.2) K/uL Neutrophils % (Manual) (50-75) % Band Neutrophils % (0-2) % Lymphocytes % (Manual) (20-40) % Monocytes % (Manual) (0-10) % Platelet Estimate (NORMAL) Poikilocytosis (manual Anisocytosis (manual) Tear Drop Cells Puncture Site pCO2 (35-45) mm/Hg pO2 (80-100) mm/Hg HCO3 (21-28) mmol/L ABG pH (7.35-7.45) ABG Total CO2 (22-28) mmol/L ABG O2 Saturation (95-98) % ABG Base Excess (-2.0-3.0) mmol/L ABG Hemoglobin (11.7-17.4) g/dL ABG Carboxyhemoglobin (0.5-1.5) % POC ABG HHb (Measured) (0.0-5.0) % ABG Methemoglobin (0.0-3.0) % Fish Test A-a O2 Difference mm/Hg Respiratory Index Hgb O2 Saturation (95.0-98.0) % Mechanical Rate FiO2 % Tidal Volume PEEP Sodium (132-148) mmol/L Potassium (3.6-5.2) mmol/L Chloride (98-107) mmol/L Carbon Dioxide (22-30) mmol/L Anion Gap (10-20) BUN (7-17) mg/dL Creatinine (0.7-1.2) MG/DL Est GFR ( Amer) Est GFR (Non-Af Amer) POC Glucose (mg/dL) 169 H 136 H (65-110) mg/dL Random Glucose (65-105) mg/dL Lactic Acid (0.7-2.1) mmol/L Calcium (8.6-10.4) mg/dl Phosphorus (2.5-4.5) mg/dL Magnesium (1.6-2.3) mg/dL Total Bilirubin (0.2-1.3) mg/dL AST (14-36) U/L ALT (9-52) U/L Alkaline Phosphatase (38-126) U/L Lactate Dehydrogenase (313-618) U/L Total Protein (6.3-8.3) g/dL Albumin (3.5-5.0) g/dL Globulin (2.2-3.9) gm/dL Albumin/Globulin Ratio (1.0-2.1) Fluid Source Pleural/thoracentesi Fluid Appearance Sl cloudy (CLEAR) Fluid WBC 486.0 H (0.0-300.0) /mm3 Fluid RBC 08138.0 H (0.0-0.0) /mm3 Fluid Tot Cell Count 100 H (0-0) Fluid Neutrophils 40.0 H (0-0) % Fluid Lymphocytes 43.0 H (0-0) % Fld Monocyte/Macrophag 17 H (0-0) % Fluid Comment 10/15/16 10/15/16 Range/Units 05:53 05:12 WBC 13.9 H (4.8-10.8) K/uL RBC 3.85 (3.80-5.20) Mil/uL Hgb 11.2 D (11.0-16.0) g/dL Hct 35.7 (34.0-47.0) % MCV 92.7 (81.0-99.0) fL MCH 29.2 (27.0-31.0) pg MCHC 31.4 L (33.0-37.0) g/dL RDW 15.1 H (11.5-14.5) % Plt Count 132 (130-400) K/uL MPV 10.4 (7.2-11.7) fL Neut % (Auto) 92.4 H (50.0-75.0) % Lymph % (Auto) 3.9 L (20.0-40.0) % Linn % (Auto) 3.2 (0.0-10.0) % Eos % (Auto) 0.1 (0.0-4.0) % Baso % (Auto) 0.4 (0.0-2.0) % Neut # 12.9 H (1.8-7.0) K/uL Lymph # 0.5 L (1.0-4.3) K/uL Linn # 0.4 (0.0-0.8) K/uL Eos # 0.0 (0.0-0.7) K/uL Baso # 0.1 (0.0-0.2) K/uL Neutrophils % (Manual) 88 H (50-75) % Band Neutrophils % 7 H (0-2) % Lymphocytes % (Manual) 3 L (20-40) % Monocytes % (Manual) 2 (0-10) % Platelet Estimate Normal (NORMAL) Poikilocytosis (manual Slight Anisocytosis (manual) Slight Tear Drop Cells Slight Puncture Site Rrad pCO2 40 (35-45) mm/Hg pO2 85 (80-100) mm/Hg HCO3 24.4 (21-28) mmol/L ABG pH 7.39 (7.35-7.45) ABG Total CO2 25.4 (22-28) mmol/L ABG O2 Saturation 98.6 H (95-98) % ABG Base Excess -0.7 (-2.0-3.0) mmol/L ABG Hemoglobin 11.1 L (11.7-17.4) g/dL ABG Carboxyhemoglobin 1.9 H (0.5-1.5) % POC ABG HHb (Measured) 1.4 (0.0-5.0) % ABG Methemoglobin 1.4 (0.0-3.0) % Fish Test Pos A-a O2 Difference 222.0 mm/Hg Respiratory Index 2.6 Hgb O2 Saturation 95.4 (95.0-98.0) % Mechanical Rate 16 FiO2 50.0 % Tidal Volume 400 PEEP 5 Sodium 148 (132-148) mmol/L Potassium 3.2 L (3.6-5.2) mmol/L Chloride 110 H (98-107) mmol/L Carbon Dioxide 24 (22-30) mmol/L Anion Gap 17 (10-20) BUN 38 H (7-17) mg/dL Creatinine 1.3 H (0.7-1.2) MG/DL Est GFR ( Amer) 47 Est GFR (Non-Af Amer) 39 POC Glucose (mg/dL) (65-110) mg/dL Random Glucose 116 H (65-105) mg/dL Lactic Acid (0.7-2.1) mmol/L Calcium 8.1 L (8.6-10.4) mg/dl Phosphorus 3.3 (2.5-4.5) mg/dL Magnesium 1.7 (1.6-2.3) mg/dL Total Bilirubin 0.4 (0.2-1.3) mg/dL AST 29 (14-36) U/L ALT 46 (9-52) U/L Alkaline Phosphatase 58 (38-126) U/L Lactate Dehydrogenase (313-618) U/L Total Protein 4.8 L (6.3-8.3) g/dL Albumin 2.5 L (3.5-5.0) g/dL Globulin 2.3 (2.2-3.9) gm/dL Albumin/Globulin Ratio 1.1 (1.0-2.1) Fluid Source Fluid Appearance (CLEAR) Fluid WBC (0.0-300.0) /mm3 Fluid RBC (0.0-0.0) /mm3 Fluid Tot Cell Count (0-0) Fluid Neutrophils (0-0) % Fluid Lymphocytes (0-0) % Fld Monocyte/Macrophag (0-0) % Fluid Comment Laboratory Results - last 24 hr 10/15/16 10/15/16 10/15/16 05:12 05:53 06:22 WBC 13.9 H RBC 3.85 Hgb 11.2 D Hct 35.7 MCV 92.7 MCH 29.2 MCHC 31.4 L RDW 15.1 H Plt Count 132 MPV 10.4 Neut % (Auto) 92.4 H Lymph % (Auto) 3.9 L Linn % (Auto) 3.2 Eos % (Auto) 0.1 Baso % (Auto) 0.4 Neut # 12.9 H Lymph # 0.5 L Linn # 0.4 Eos # 0.0 Baso # 0.1 Neutrophils % (Manual) 88 H Band Neutrophils % 7 H Lymphocytes % (Manual) 3 L Monocytes % (Manual) 2 Platelet Estimate Normal Poikilocytosis (manual Slight Anisocytosis (manual) Slight Tear Drop Cells Slight Puncture Site Rrad pCO2 40 pO2 85 HCO3 24.4 ABG pH 7.39 ABG Total CO2 25.4 ABG O2 Saturation 98.6 H ABG Base Excess -0.7 ABG Hemoglobin 11.1 L ABG Carboxyhemoglobin 1.9 H POC ABG HHb (Measured) 1.4 ABG Methemoglobin 1.4 Fish Test Pos A-a O2 Difference 222.0 Respiratory Index 2.6 Hgb O2 Saturation 95.4 Mechanical Rate 16 FiO2 50.0 Tidal Volume 400 PEEP 5 Sodium 148 Potassium 3.2 L Chloride 110 H Carbon Dioxide 24 Anion Gap 17 BUN 38 H Creatinine 1.3 H Est GFR ( Amer) 47 Est GFR (Non-Af Amer) 39 POC Glucose (mg/dL) 136 H Random Glucose 116 H Lactic Acid Calcium 8.1 L Phosphorus 3.3 Magnesium 1.7 Total Bilirubin 0.4 AST 29 ALT 46 Alkaline Phosphatase 58 Lactate Dehydrogenase Total Protein 4.8 L Albumin 2.5 L Globulin 2.3 Albumin/Globulin Ratio 1.1 Fluid Source Fluid Appearance Fluid WBC Fluid RBC Fluid Tot Cell Count Fluid Neutrophils Fluid Lymphocytes Fld Monocyte/Macrophag Fluid Comment 10/15/16 10/15/16 10/15/16 12:31 16:01 16:19 WBC RBC Hgb Hct MCV MCH MCHC RDW Plt Count MPV Neut % (Auto) Lymph % (Auto) Linn % (Auto) Eos % (Auto) Baso % (Auto) Neut # Lymph # Linn # Eos # Baso # Neutrophils % (Manual) Band Neutrophils % Lymphocytes % (Manual) Monocytes % (Manual) Platelet Estimate Poikilocytosis (manual Anisocytosis (manual) Tear Drop Cells Puncture Site pCO2 pO2 HCO3 ABG pH ABG Total CO2 ABG O2 Saturation ABG Base Excess ABG Hemoglobin ABG Carboxyhemoglobin POC ABG HHb (Measured) ABG Methemoglobin Fish Test A-a O2 Difference Respiratory Index Hgb O2 Saturation Mechanical Rate FiO2 Tidal Volume PEEP Sodium Potassium Chloride Carbon Dioxide Anion Gap BUN Creatinine Est GFR ( Amer) Est GFR (Non-Af Amer) POC Glucose (mg/dL) 169 H Random Glucose Lactic Acid 0.7 Calcium Phosphorus Magnesium Total Bilirubin AST ALT Alkaline Phosphatase Lactate Dehydrogenase 728 H Total Protein Albumin Globulin Albumin/Globulin Ratio Fluid Source Pleural/thoracentesi Fluid Appearance Sl cloudy Fluid WBC 486.0 H Fluid RBC 47497.0 H Fluid Tot Cell Count 100 H Fluid Neutrophils 40.0 H Fluid Lymphocytes 43.0 H Fld Monocyte/Macrophag 17 H Fluid Comment 10/15/16 10/16/16 17:47 00:01 WBC RBC Hgb Hct MCV MCH MCHC RDW Plt Count MPV Neut % (Auto) Lymph % (Auto) Linn % (Auto) Eos % (Auto) Baso % (Auto) Neut # Lymph # Linn # Eos # Baso # Neutrophils % (Manual) Band Neutrophils % Lymphocytes % (Manual) Monocytes % (Manual) Platelet Estimate Poikilocytosis (manual Anisocytosis (manual) Tear Drop Cells Puncture Site pCO2 pO2 HCO3 ABG pH ABG Total CO2 ABG O2 Saturation ABG Base Excess ABG Hemoglobin ABG Carboxyhemoglobin POC ABG HHb (Measured) ABG Methemoglobin Fish Test A-a O2 Difference Respiratory Index Hgb O2 Saturation Mechanical Rate FiO2 Tidal Volume PEEP Sodium Potassium Chloride Carbon Dioxide Anion Gap BUN Creatinine Est GFR ( Amer) Est GFR (Non-Af Amer) POC Glucose (mg/dL) 187 H 171 H Random Glucose Lactic Acid Calcium Phosphorus Magnesium Total Bilirubin AST ALT Alkaline Phosphatase Lactate Dehydrogenase Total Protein Albumin Globulin Albumin/Globulin Ratio Fluid Source Fluid Appearance Fluid WBC Fluid RBC Fluid Tot Cell Count Fluid Neutrophils Fluid Lymphocytes Fld Monocyte/Macrophag Fluid Comment Fingerstick Blood Sugar Results: 104 Assessment/Plan - Assessment and Plan (Free Text) Assessment: CT results called in by Radiologist 10/15/16 at 11:42pm.with caecal diameter of approximately 9cm.Results discussed with surgeon Dr Jimenez .He said "it is fine" and will follow up in am
--- NOTE | 2016-10-16 01:01 | CP.PCM.PN ---
Subjective - Date & Time of Evaluation Date of Evaluation: 10/15/16 Time of Evaluation: 13:12 - Subjective Subjective: Pt seen and examined in no acute distress. Patient tolerating CPAP trial well. Patient had thoracentesis performed. Tolerated procedure well. Still intubated - No ROS at this time. Objective - Vital Signs/Intake and Output Vital Signs (last 24 hours): Temp Pulse Resp BP Pulse Ox 97.7 F 86 20 129/73 99 10/15/16 20:00 10/15/16 23:00 10/15/16 23:00 10/15/16 23:00 10/15/16 23:00 Intake and Output: 10/15/16 10/16/16 18:59 06:59 Intake Total 360 130 Output Total 780 240 Balance -420 -110 - Medications Medications: Current Medications Albuterol/Ipratropium (Duoneb 3 Mg/0.5 Mg (3 Ml) Ud) 3 ml INH RQ4 [facility] Last Admin: 10/15/16 23:24 Dose: 3 ml Aspirin (Aspirin Chewable) 81 mg PO DAILY [facility] Last Admin: 10/05/16 09:14 Dose: 81 mg Budesonide (Pulmicort Respules) 0.5 mg INH RQ12 [facility] Last Admin: 10/15/16 19:13 Dose: 0.5 mg Clopidogrel Bisulfate (Plavix) 75 mg PO DAILY [facility] Last Admin: 10/05/16 09:14 Dose: 75 mg Diltiazem HCl (Cardizem) 60 mg GT QID [facility] Last Admin: 10/15/16 22:44 Dose: 60 mg Enoxaparin Sodium (Lovenox) 40 mg SC DAILY [facility] Last Admin: 10/05/16 09:14 Dose: 40 mg Famotidine (Pepcid) 20 mg IVP DAILY [facility] Last Admin: 10/15/16 11:14 Dose: 20 mg Doxycycline Hyclate 100 mg/ (Sodium Chloride) 100 mls @ 100 mls/hr IVPB Q12H [facility] Last Admin: 10/15/16 21:36 Dose: 100 mls/hr Metronidazole (Flagyl) 100 mls @ 100 mls/hr IVPB Q8H [facility] Last Admin: 10/15/16 15:02 Dose: 100 mls/hr Insulin Human Regular (Novolin R) 0 unit SC Q6H [facility] PRN Reason: Protocol Last Admin: 10/15/16 18:35 Dose: Not Given Lisinopril (Zestril) 20 mg NG BID [facility] Last Admin: 10/15/16 18:34 Dose: 20 mg Methylprednisolone (Solu-Medrol) 20 mg IV DAILY [facility] Last Admin: 10/15/16 11:14 Dose: 20 mg Midazolam HCl (Versed Inj) 2 mg IVP Q4H PRN PRN Reason: Agitation Last Admin: 10/14/16 06:54 Dose: 2 mg Polyethylene Glycol (Miralax) 17 gm PO DAILY [facility] Last Admin: 10/15/16 11:19 Dose: Not Given Rosuvastatin Calcium (Crestor) 10 mg PO HS [facility] Last Admin: 10/15/16 22:44 Dose: 10 mg - Labs Labs: 10/15/16 05:53 10/15/16 05:53 PT 12.3 SECONDS (9.7-12.2) H 10/06/16 01:34 INR 1.1 10/06/16 01:34 APTT 27 SECONDS (21-34) 10/06/16 01:34 - Constitutional Appears: Confused, Chronically Ill - Head Exam Head Exam: ATRAUMATIC, NORMAL INSPECTION, NORMOCEPHALIC - Eye Exam Eye Exam: EOMI, Normal appearance, PERRL Pupil Exam: NORMAL ACCOMODATION, PERRL - Respiratory Exam Respiratory Exam: Clear to Ausculation Bilateral, NORMAL BREATHING PATTERN - Cardiovascular Exam Cardiovascular Exam: REGULAR RHYTHM, +S1, +S2. absent: Murmur - GI/Abdominal Exam GI & Abdominal Exam: Soft, Normal Bowel Sounds. absent: Tenderness Assessment and Plan (1) Acute respiratory failure with hypoxia and hypercarbia Status: Resolved (2) Altered mental status Status: Resolved (3) Acute IL Status: Acute (4) Dehydration Status: Acute (5) Abdominal distension Status: Acute
[2016-10-16] MEDS: Albuterol-Ipratrop 3 mg / 0.5 (3 ml) UD INH SCH ×6 (03:00→23:29)
[2016-10-16 04:48] LABS: ABG ALLEN TEST POS; ABG MECHANICAL RATE 16; ARTERIAL BLOOD HGB O2 SAT 97.1 % (95.0-98.0); ATERIAL BLOOD GAS PEEP 5; CARBOXYHEMOGLOBIN 1.9 % (0.5-1.5); DRAW SITE RR; HHB 0.2 % (0.0-5.0); METHEMOGLOBIN 0.8 % (0.0-3.0)
[2016-10-16 06:45] LABS: POTASSIUM 2.9 mmol/L (3.6-5.2)
[2016-10-16 06:48] LABS: BILIRUBIN,TOTAL 0.5 mg/dL (0.2-1.3); PHOSPHOROUS 3.6 mg/dL (2.5-4.5); TOTAL PROTEIN 4.5 g/dL (6.3-8.3)
[2016-10-16 06:49] LABS: CALCIUM 7.8 mg/dl (8.6-10.4); MAGNESIUM 1.8 mg/dL (1.6-2.3)
[2016-10-16 06:51] LABS: BASO % 0.3 % (0.0-2.0); EOS % 0.1 % (0.0-4.0); HEMATOCRIT 30.3 % (34.0-47.0); LYMPH # 0.6 K/uL (1.0-4.3); LYMPH % 5.4 % (20.0-40.0); MEAN CELL VOLUME 92.9 fL (81.0-99.0); MEAN CORPUSCULAR HEMOGLOBIN 30.8 pg (27.0-31.0); MEAN CORPUSCULAR HGB CONC 33.1 g/dL (33.0-37.0); MEAN PLATELET VOLUME 9.8 fL (7.2-11.7); MONO # 0.5 K/uL (0.0-0.8); MONO % 4.9 % (0.0-10.0); NRBC % 0.1 % (0.0-2.0); PLATELET COUNT 115 K/uL (130-400); RED CELL DISTRIBUTION WIDTH 14.6 % (11.5-14.5); WHITE BLOOD COUNT 10.5 K/uL (4.8-10.8)
[2016-10-16] MEDS: (Novolin R) Insulin Human Regular 100 units/ml vial SC SCH ×4 (07:06→18:23)
[2016-10-16] MEDS: Budesonide 0.5 mg/2 ml Inhal Susp UD INH SCH ×2 (07:22→19:29)
[2016-10-16 08:22] LABS: METAMYELOCYTE 1 % (0-0); NEUTROPHIL 82 % (50-75); TOTAL CELLS COUNTED 100
[2016-10-16 08:23] LABS: LARGE PLATELETS PRESENT
--- NOTE | 2016-10-16 08:47 | CP.CCUPN ---
<Katarzyna Hearn - Last Filed: 10/16/16 14:03> CCU Subjective - Physician Review Subjective (Free Text): 10/07/16 12:24 Patient was seen and examined in no acute distress. No acute events overnight. Packing remains in place. Patient appears more lethargic today at times as compared to her normal baseline. Patient was extubated 10/02/16 with O2 saturation in high 90s on venti mask. The patient has passed a swallow evaluation and eating though minimally. Per nursing, patient has not had a BM in 5-6 days. The patient did not comply with ROS due to somnolence. 10/08/16 12:48 Pt seen and examined though increasingly lethargic on evaluation and as per nursing. Patient desaturated into the 80's in mild distress prompting the need for intubation. A ROS could not be obtained due to patient's lethargy 10/09/16 14:24 Pt seen and examined in no acute distress. Patient intubated 10/08/16 with TLC placed with no events per nursing. A ROS could not be obtained due to patient's lethargy. 10/10/16 21:06 Pt seen and examined in no acute distress. No events overnight per nursing. An ROS could not be obtained due to patient being intubated and sedated. 10/11/16 07:16 Pt seen and examined in no acute distress. Patient hemodynamically stable at this time. Patient being weaned off FiO2. Feeds held in light of abdominal xray findings suggestive of large ileus. An ROS could not be obtained due to patient being intubated and sedated. Sister present bedside. 10/14/16 15:43 Pt seen and examined in no acute distress. Patient alert and able to point and gesture towards fan in need of cool air. Patient able to gesture and wave at family present bedside as well. Patient tolerating CPAP. Patient to have thoracentesis today after consent is obtained. An ROS could not be obtained at this time due to patient being intubated. 10/15/16 15:22 Pt seen and examined in no acute distress. Patient tolerating CPAP trial well. Patient had thoracentesis performed. Tolerated procedure well. Still intubated - No ROS at this time. 10/16/16 13:43 Pt seen and examined in no acute distress. Patient tolerating CPAP. Patient still intubated though quite responsive with palpation. No ROS at this time as patient is intubated. CCU Objective - Vital Signs / Intake & Output Vital Signs (Last 4 hours): Vital Signs Pulse Resp BP Pulse Ox 10/16/16 06:00 78 16 138/69 100 10/16/16 05:30 81 17 100 10/16/16 05:00 86 15 128/69 99 Intake and Output (Last 8hrs): Intake & Output 10/15/16 10/16/16 10/16/16 22:59 06:59 14:59 Intake Total 250 200 Output Total 450 360 Balance -200 -160 Weight 170 lb 6.677 oz Intake: Intake, IV Amount 100 100 Right Medial Port 100 100 Subclavian Tube Feeding 150 0 Other 100 Output: Urine 450 360 Urethral (Perez) 450 360 Other: # Bowel Movements 1 - Physical Exam Head: Positive for: Atraumatic, Normocephalic, Other (ET Tube in place) Pupils: Positive for: PERRL Extroacular Muscles: Positive for: EOMI Conjunctiva: Positive for: Injected Mouth: Positive for: Dry Nose (Internal): Positive for: Other (Nasal packing in place) Neck: Positive for: Normal Range of Motion Respiratory/Chest: Positive for: Clear to Auscultation, Good Air Exchange, Rales. Negative for: Respiratory Distress, Accessory Muscle Use, Wheezes Cardiovascular: Positive for: Normal S1, S2, Irregular Rhythm. Negative for: Regular Rate and Rhythm, Murmurs Abdomen: Positive for: Distention, Normal Bowel Sounds. Negative for: Peritoneal Signs, Rebound Genitourinary/Pelvic Exam: Positive for: Other (perez in place) Upper Extremity: Positive for: Normal Inspection. Negative for: Cyanosis, Edema Lower Extremity: Positive for: Normal Inspection. Negative for: Edema, CALF TENDERNESS Neurological: Positive for: Other (sedated) Skin: Positive for: Warm, Dry Psychiatric: Positive for: Alert - Medications Active Medications: Active Medications Generic Name Dose Route Start Last Admin Trade Name Freq PRN Reason Stop Dose Admin Albuterol/Ipratropium 3 ml 10/15/16 08:00 10/16/16 07:22 Duoneb 3 Mg/0.5 Mg (3 Ml) Ud INH 3 ml RQ4 KAILA Administration Aspirin 81 mg 09/24/16 18:30 10/05/16 09:14 Aspirin Chewable PO 81 mg DAILY K[facility]A Administration Budesonide 0.5 mg 10/02/16 20:00 10/16/16 07:22 Pulmicort Respules INH 0.5 mg RQ12 KAILA Administration Clopidogrel Bisulfate 75 mg 09/26/16 10:00 10/05/16 09:14 Plavix PO 75 mg DAILY K[facility]A Administration Diltiazem HCl 60 mg 10/10/16 14:00 10/15/16 22:44 Cardizem GT 60 mg QID K[facility]A Administration Enoxaparin Sodium 40 mg 09/26/16 13:00 10/05/16 09:14 Lovenox SC 40 mg DAILY [facility]A Administration Famotidine 20 mg 10/08/16 10:00 10/15/16 11:14 Pepcid IVP 20 mg DAILY [facility] Administration Doxycycline Hyclate 100 mg/ 100 mls @ 100 mls/hr 10/13/16 09:00 10/15/16 21:36 Sodium Chloride IVPB 100 mls/hr Q12H [facility] Administration Metronidazole 100 mls @ 100 mls/hr 10/13/16 08:00 10/16/16 00:00 Flagyl IVPB 100 mls/hr Q8H K[facility] Administration Insulin Human Regular 0 unit 10/09/16 00:01 10/16/16 07:06 Novolin R SC Not Given Q6H [facility] Protocol Lisinopril 20 mg 10/05/16 18:00 10/15/16 18:34 Zestril NG 20 mg BID K[facility] Administration Methylprednisolone 20 mg 10/07/16 10:00 10/15/16 11:14 Solu-Medrol IV 20 mg DAILY [facility] Administration Midazolam HCl 2 mg 10/13/16 12:35 10/14/16 06:54 Versed Inj IVP 2 mg Q4H PRN Administration Agitation Polyethylene Glycol 17 gm 10/06/16 10:00 10/15/16 11:19 Miralax PO Not Given DAILY [facility] Rosuvastatin Calcium 10 mg 09/23/16 22:00 10/15/16 22:44 Crestor PO 10 mg HS KAILA Administration - Patient Studies Lab Studies: Microbiology Studies 10/15/16 16:04 Gram Stain - Final Pleural Fluid Lab Studies 10/16/16 10/16/16 10/16/16 Range/Units 06:30 06:01 04:25 WBC 10.5 (4.8-10.8) K/uL RBC 3.27 L (3.80-5.20) Mil/uL Hgb 10.0 L (11.0-16.0) g/dL Hct 30.3 L (34.0-47.0) % MCV 92.9 (81.0-99.0) fL MCH 30.8 (27.0-31.0) pg MCHC 33.1 (33.0-37.0) g/dL RDW 14.6 H (11.5-14.5) % Plt Count 115 L (130-400) K/uL MPV 9.8 (7.2-11.7) fL Neut % (Auto) 89.3 H (50.0-75.0) % Lymph % (Auto) 5.4 L (20.0-40.0) % [place] % (Auto) 4.9 (0.0-10.0) % Eos % (Auto) 0.1 (0.0-4.0) % Baso % (Auto) 0.3 (0.0-2.0) % Neut # 9.4 H (1.8-7.0) K/uL Lymph # 0.6 L (1.0-4.3) K/uL [place] # 0.5 (0.0-0.8) K/uL Eos # 0.0 (0.0-0.7) K/uL Baso # 0.0 (0.0-0.2) K/uL Neutrophils % (Manual) 82 H (50-75) % Band Neutrophils % 6 H (0-2) % Lymphocytes % (Manual) 6 L (20-40) % Monocytes % (Manual) 5 (0-10) % Metamyelocytes % 1 H (0-0) % Platelet Estimate Slightly decreased L (NORMAL) Large Platelets Present Tear Drop Cells Slight Puncture Site Rr pCO2 41 (35-45) mm/Hg pO2 128 H (80-100) mm/Hg HCO3 22.8 (21-28) mmol/L ABG pH 7.35 (7.35-7.45) ABG Total CO2 23.9 (22-28) mmol/L ABG O2 Saturation 99.8 H (95-98) % ABG Base Excess -2.8 L (-2.0-3.0) mmol/L ABG Hemoglobin 9.6 L (11.7-17.4) g/dL ABG Carboxyhemoglobin 1.9 H (0.5-1.5) % POC ABG HHb (Measured) 0.2 (0.0-5.0) % ABG Methemoglobin 0.8 (0.0-3.0) % Fish Test Pos A-a O2 Difference 177.0 mm/Hg Respiratory Index 1.4 Hgb O2 Saturation 97.1 (95.0-98.0) % Mechanical Rate 16 FiO2 50.0 % Tidal Volume 400 PEEP 5 Sodium 148 (132-148) mmol/L Potassium 2.9 L (3.6-5.2) mmol/L Chloride 115 H (98-107) mmol/L Carbon Dioxide 22 (22-30) mmol/L Anion Gap 14 (10-20) BUN 44 H (7-17) mg/dL Creatinine 1.5 H (0.7-1.2) MG/DL Est GFR ( Amer) 40 Est GFR (Non-Af Amer) 33 POC Glucose (mg/dL) 124 H (65-110) mg/dL Random Glucose 102 (65-105) mg/dL Lactic Acid (0.7-2.1) mmol/L Calcium 7.8 L (8.6-10.4) mg/dl Phosphorus 3.6 (2.5-4.5) mg/dL Magnesium 1.8 (1.6-2.3) mg/dL Total Bilirubin 0.5 (0.2-1.3) mg/dL AST 21 (14-36) U/L ALT 48 (9-52) U/L Alkaline Phosphatase 49 (38-126) U/L Lactate Dehydrogenase (313-618) U/L Total Protein 4.5 L (6.3-8.3) g/dL Albumin 2.2 L (3.5-5.0) g/dL Globulin 2.3 (2.2-3.9) gm/dL Albumin/Globulin Ratio 1.0 (1.0-2.1) Fluid Source Fluid Appearance (CLEAR) Fluid WBC (0.0-300.0) /mm3 Fluid RBC (0.0-0.0) /mm3 Fluid Tot Cell Count (0-0) Fluid Neutrophils (0-0) % Fluid Lymphocytes (0-0) % Fld Monocyte/Macrophag (0-0) % Fluid Comment 10/16/16 10/15/16 10/15/16 Range/Units 00:01 17:47 16:19 WBC (4.8-10.8) K/uL RBC (3.80-5.20) Mil/uL Hgb (11.0-16.0) g/dL Hct (34.0-47.0) % MCV (81.0-99.0) fL MCH (27.0-31.0) pg MCHC (33.0-37.0) g/dL RDW (11.5-14.5) % Plt Count (130-400) K/uL MPV (7.2-11.7) fL Neut % (Auto) (50.0-75.0) % Lymph % (Auto) (20.0-40.0) % [place] % (Auto) (0.0-10.0) % Eos % (Auto) (0.0-4.0) % Baso % (Auto) (0.0-2.0) % Neut # (1.8-7.0) K/uL Lymph # (1.0-4.3) K/uL [place] # (0.0-0.8) K/uL Eos # (0.0-0.7) K/uL Baso # (0.0-0.2) K/uL Neutrophils % (Manual) (50-75) % Band Neutrophils % (0-2) % Lymphocytes % (Manual) (20-40) % Monocytes % (Manual) (0-10) % Metamyelocytes % (0-0) % Platelet Estimate (NORMAL) Large Platelets Tear Drop Cells Puncture Site pCO2 (35-45) mm/Hg pO2 (80-100) mm/Hg HCO3 (21-28) mmol/L ABG pH (7.35-7.45) ABG Total CO2 (22-28) mmol/L ABG O2 Saturation (95-98) % ABG Base Excess (-2.0-3.0) mmol/L ABG Hemoglobin (11.7-17.4) g/dL ABG Carboxyhemoglobin (0.5-1.5) % POC ABG HHb (Measured) (0.0-5.0) % ABG Methemoglobin (0.0-3.0) % Fish Test A-a O2 Difference mm/Hg Respiratory Index Hgb O2 Saturation (95.0-98.0) % Mechanical Rate FiO2 % Tidal Volume PEEP Sodium (132-148) mmol/L Potassium (3.6-5.2) mmol/L Chloride (98-107) mmol/L Carbon Dioxide (22-30) mmol/L Anion Gap (10-20) BUN (7-17) mg/dL Creatinine (0.7-1.2) MG/DL Est GFR ( Amer) Est GFR (Non-Af Amer) POC Glucose (mg/dL) 171 H 187 H (65-110) mg/dL Random Glucose (65-105) mg/dL Lactic Acid 0.7 (0.7-2.1) mmol/L Calcium (8.6-10.4) mg/dl Phosphorus (2.5-4.5) mg/dL Magnesium (1.6-2.3) mg/dL Total Bilirubin (0.2-1.3) mg/dL AST (14-36) U/L ALT (9-52) U/L Alkaline Phosphatase (38-126) U/L Lactate Dehydrogenase 728 H (313-618) U/L Total Protein (6.3-8.3) g/dL Albumin (3.5-5.0) g/dL Globulin (2.2-3.9) gm/dL Albumin/Globulin Ratio (1.0-2.1) Fluid Source Fluid Appearance (CLEAR) Fluid WBC (0.0-300.0) /mm3 Fluid RBC (0.0-0.0) /mm3 Fluid Tot Cell Count (0-0) Fluid Neutrophils (0-0) % Fluid Lymphocytes (0-0) % Fld Monocyte/Macrophag (0-0) % Fluid Comment 10/15/16 10/15/16 Range/Units 16:01 12:31 WBC (4.8-10.8) K/uL RBC (3.80-5.20) Mil/uL Hgb (11.0-16.0) g/dL Hct (34.0-47.0) % MCV (81.0-99.0) fL MCH (27.0-31.0) pg MCHC (33.0-37.0) g/dL RDW (11.5-14.5) % Plt Count (130-400) K/uL MPV (7.2-11.7) fL Neut % (Auto) (50.0-75.0) % Lymph % (Auto) (20.0-40.0) % [place] % (Auto) (0.0-10.0) % Eos % (Auto) (0.0-4.0) % Baso % (Auto) (0.0-2.0) % Neut # (1.8-7.0) K/uL Lymph # (1.0-4.3) K/uL [place] # (0.0-0.8) K/uL Eos # (0.0-0.7) K/uL Baso # (0.0-0.2) K/uL Neutrophils % (Manual) (50-75) % Band Neutrophils % (0-2) % Lymphocytes % (Manual) (20-40) % Monocytes % (Manual) (0-10) % Metamyelocytes % (0-0) % Platelet Estimate (NORMAL) Large Platelets Tear Drop Cells Puncture Site pCO2 (35-45) mm/Hg pO2 (80-100) mm/Hg HCO3 (21-28) mmol/L ABG pH (7.35-7.45) ABG Total CO2 (22-28) mmol/L ABG O2 Saturation (95-98) % ABG Base Excess (-2.0-3.0) mmol/L ABG Hemoglobin (11.7-17.4) g/dL ABG Carboxyhemoglobin (0.5-1.5) % POC ABG HHb (Measured) (0.0-5.0) % ABG Methemoglobin (0.0-3.0) % Fish Test A-a O2 Difference mm/Hg Respiratory Index Hgb O2 Saturation (95.0-98.0) % Mechanical Rate FiO2 % Tidal Volume PEEP Sodium (132-148) mmol/L Potassium (3.6-5.2) mmol/L Chloride (98-107) mmol/L Carbon Dioxide (22-30) mmol/L Anion Gap (10-20) BUN (7-17) mg/dL Creatinine (0.7-1.2) MG/DL Est GFR ( Amer) Est GFR (Non-Af Amer) POC Glucose (mg/dL) 169 H (65-110) mg/dL Random Glucose (65-105) mg/dL Lactic Acid (0.7-2.1) mmol/L Calcium (8.6-10.4) mg/dl Phosphorus (2.5-4.5) mg/dL Magnesium (1.6-2.3) mg/dL Total Bilirubin (0.2-1.3) mg/dL AST (14-36) U/L ALT (9-52) U/L Alkaline Phosphatase (38-126) U/L Lactate Dehydrogenase (313-618) U/L Total Protein (6.3-8.3) g/dL Albumin (3.5-5.0) g/dL Globulin (2.2-3.9) gm/dL Albumin/Globulin Ratio (1.0-2.1) Fluid Source Pleural/thoracentesi Fluid Appearance Sl cloudy (CLEAR) Fluid WBC 486.0 H (0.0-300.0) /mm3 Fluid RBC 62775.0 H (0.0-0.0) /mm3 Fluid Tot Cell Count 100 H (0-0) Fluid Neutrophils 40.0 H (0-0) % Fluid Lymphocytes 43.0 H (0-0) % Fld Monocyte/Macrophag 17 H (0-0) % Fluid Comment Laboratory Results - last 24 hr 10/15/16 10/15/16 10/15/16 12:31 16:01 16:19 WBC RBC Hgb Hct MCV MCH MCHC RDW Plt Count MPV Neut % (Auto) Lymph % (Auto) [place] % (Auto) Eos % (Auto) Baso % (Auto) Neut # Lymph # [place] # Eos # Baso # Neutrophils % (Manual) Band Neutrophils % Lymphocytes % (Manual) Monocytes % (Manual) Metamyelocytes % Platelet Estimate Large Platelets Tear Drop Cells Puncture Site pCO2 pO2 HCO3 ABG pH ABG Total CO2 ABG O2 Saturation ABG Base Excess ABG Hemoglobin ABG Carboxyhemoglobin POC ABG HHb (Measured) ABG Methemoglobin Fish Test A-a O2 Difference Respiratory Index Hgb O2 Saturation Mechanical Rate FiO2 Tidal Volume PEEP Sodium Potassium Chloride Carbon Dioxide Anion Gap BUN Creatinine Est GFR ( Amer) Est GFR (Non-Af Amer) POC Glucose (mg/dL) 169 H Random Glucose Lactic Acid 0.7 Calcium Phosphorus Magnesium Total Bilirubin AST ALT Alkaline Phosphatase Lactate Dehydrogenase 728 H Total Protein Albumin Globulin Albumin/Globulin Ratio Fluid Source Pleural/thoracentesi Fluid Appearance Sl cloudy Fluid WBC 486.0 H Fluid RBC 00274.0 H Fluid Tot Cell Count 100 H Fluid Neutrophils 40.0 H Fluid Lymphocytes 43.0 H Fld Monocyte/Macrophag 17 H Fluid Comment 10/15/16 10/16/16 10/16/16 17:47 00:01 04:25 WBC RBC Hgb Hct MCV MCH MCHC RDW Plt Count MPV Neut % (Auto) Lymph % (Auto) [place] % (Auto) Eos % (Auto) Baso % (Auto) Neut # Lymph # [place] # Eos # Baso # Neutrophils % (Manual) Band Neutrophils % Lymphocytes % (Manual) Monocytes % (Manual) Metamyelocytes % Platelet Estimate Large Platelets Tear Drop Cells Puncture Site Rr pCO2 41 pO2 128 H HCO3 22.8 ABG pH 7.35 ABG Total CO2 23.9 ABG O2 Saturation 99.8 H ABG Base Excess -2.8 L ABG Hemoglobin 9.6 L ABG Carboxyhemoglobin 1.9 H POC ABG HHb (Measured) 0.2 ABG Methemoglobin 0.8 Fish Test Pos A-a O2 Difference 177.0 Respiratory Index 1.4 Hgb O2 Saturation 97.1 Mechanical Rate 16 FiO2 50.0 Tidal Volume 400 PEEP 5 Sodium Potassium Chloride Carbon Dioxide Anion Gap BUN Creatinine Est GFR ( Amer) Est GFR (Non-Af Amer) POC Glucose (mg/dL) 187 H 171 H Random Glucose Lactic Acid Calcium Phosphorus Magnesium Total Bilirubin AST ALT Alkaline Phosphatase Lactate Dehydrogenase Total Protein Albumin Globulin Albumin/Globulin Ratio Fluid Source Fluid Appearance Fluid WBC Fluid RBC Fluid Tot Cell Count Fluid Neutrophils Fluid Lymphocytes Fld Monocyte/Macrophag Fluid Comment 10/16/16 10/16/16 06:01 06:30 WBC 10.5 RBC 3.27 L Hgb 10.0 L Hct 30.3 L MCV 92.9 MCH 30.8 MCHC 33.1 RDW 14.6 H Plt Count 115 L MPV 9.8 Neut % (Auto) 89.3 H Lymph % (Auto) 5.4 L [place] % (Auto) 4.9 Eos % (Auto) 0.1 Baso % (Auto) 0.3 Neut # 9.4 H Lymph # 0.6 L [place] # 0.5 Eos # 0.0 Baso # 0.0 Neutrophils % (Manual) 82 H Band Neutrophils % 6 H Lymphocytes % (Manual) 6 L Monocytes % (Manual) 5 Metamyelocytes % 1 H Platelet Estimate Slightly decreased L Large Platelets Present Tear Drop Cells Slight Puncture Site pCO2 pO2 HCO3 ABG pH ABG Total CO2 ABG O2 Saturation ABG Base Excess ABG Hemoglobin ABG Carboxyhemoglobin POC ABG HHb (Measured) ABG Methemoglobin Fish Test A-a O2 Difference Respiratory Index Hgb O2 Saturation Mechanical Rate FiO2 Tidal Volume PEEP Sodium 148 Potassium 2.9 L Chloride 115 H Carbon Dioxide 22 Anion Gap 14 BUN 44 H Creatinine 1.5 H Est GFR ( Amer) 40 Est GFR (Non-Af Amer) 33 POC Glucose (mg/dL) 124 H Random Glucose 102 Lactic Acid Calcium 7.8 L Phosphorus 3.6 Magnesium 1.8 Total Bilirubin 0.5 AST 21 ALT 48 Alkaline Phosphatase 49 Lactate Dehydrogenase Total Protein 4.5 L Albumin 2.2 L Globulin 2.3 Albumin/Globulin Ratio 1.0 Fluid Source Fluid Appearance Fluid WBC Fluid RBC Fluid Tot Cell Count Fluid Neutrophils Fluid Lymphocytes Fld Monocyte/Macrophag Fluid Comment Fingerstick Blood Sugar Results: 104 Review of Systems - Review of Systems Review of Systems: refer to subjective Assessment/Plan - Assessment and Plan (Free Text) Assessment: 86-year-old female with PMHx significant for COPD hypertension and CAD, initially presented to ICU with acute respiratory failure and hypercarbic encephalopathy. Patient had a prior episode of epistaxis which has since resolved. Patient desaturated 10/08/16 in mild distress prompting re-intubation. Patient s/p thoracentesis. Patient with 9 cm cecal distension noted on recent CT abdomen imaging 10/15. Plan: Neuro: Re-intubated and sedated 10/08/16- noted improvement. Could not comply with ROS at this time 09/23/16 CT Head- Generalized atrophy. Nonspecific white matter changes. Cardiovascular: Better rate control noted HTN Diltiazem IV switched to OGT QID Plavix 75mg PO daily- held due to prior bleed Lisinopril 20mg NG BID daily Aspirin 81mg po daily- held due to prior bleed Rouvastatin 10mg po HS Pulmonary: s/p thoracentesis- 350 cc of brownish colored fluid removed. F/U pleura studies ( cell count/diff, glucose, LDH, albumin, amylase, cholesterol, total protein), Lactic acid and LDH serum Continue ventilatory support, follow up ABG and reduce FiO2 as tolerated Patient extubated 8:50AM 10/02/16; however re-intubated 10/08/16 due to desaturation into the 80s. tolerating CPAP Solumedrol tapered down- 20mg IV daily Budesonide 0.5mg INH Q12 Imagin10/16/16- small left pleural effusion, central vasc congestion; tubes and lines in place ( refer to full report). F/U repeat CXR in AM 10/14/16- B/L pleural effusions as noted over past few days. Left is greater than right. 10/10/16- improved left sided effusion- refer to full report 10/09/[address]- increasing pleural effusions let greater than right with associated compressive atelectasis and pneumonia; nodule noted as prev mentioned - 10/09/16 CXR- Lines and tubes in stable position. Persistent near complete opacification of the left susie thorax with moderate to large left pleural effusion. Diffuse increased interstitial lung markings in the right lung with some relative consolidation in the medial right infrahilar region. AB10/15/16 pH 7.39, PCO2 40, PO2 85, HCO3 24.4 ( stable- can likely extubate soon with continued improvement) 10/14/16 pH 7.39, PCO2 42, PO2 97, HCO3 25.5 GI: 10/15/16: 9 cm cecal dilation noted without evidence of obstruction. Night pool nurse informed. Surgery ( made aware) Will follow. Per GI, hold feeds. Rectal tube needed for decompression. Abdominal flat plate per GI 10/11/16 - results report mildly dilated loops of bowel in RUQ w/ nonspecific gas pattern. CT of abd/ pelvis suggested ; however patient had one performed 09/29/16. In light of suspicions of ileus will hold feeds.- F/U with GI recommendations Pepcid 20 mg IV daily Hematology: WBC 10.5 Hgb/Hct stable : 10/30.3 Endocrine: Maintain euglycemia HbA1c- 5.9 Insulin Sliding Scale protocol Renal: Initial KAYLEN improving. BUN/Cr: 44/1.5 Hypokalemia- repleted ID: U/A negative, UC negative Blood Cx negative DC Abx 10/03/16 : Perez in place MSK: turn 2 qh to prevent bed sores Palliative Care: Palliative Care Consult Placed- F/U Prophylaxis- Pepcid 20mg IV daily Lovenox 40mg sc HELD due to epistaxis event, SCDs in place Ensure Enlive - three times a day <Kendrick Yo - Last Filed: 10/16/16 15:24> CCU Objective - Vital Signs / Intake & Output Intake and Output (Last 8hrs): Intake & Output 10/16/16 10/16/16 10/16/16 06:59 14:59 22:59 Intake Total 200 400 Output Total 360 110 Balance -160 290 Weight 170 lb 6.677 oz Intake: Intake, IV Amount 100 400 Right Distal Port 200 Subclavian Right Medial Port 100 200 Subclavian Tube Feeding 0 0 Other 100 Output: Urine 360 110 Urethral (Perez) 360 110 Other: # Bowel Movements 1 - Medications Active Medications: Active Medications Generic Name Dose Route Start Last Admin Trade Name Freq PRN Reason Stop Dose Admin Albuterol/Ipratropium 3 ml 10/15/16 08:00 10/16/16 11:14 Duoneb 3 Mg/0.5 Mg (3 Ml) Ud INH 3 ml RQ4 [facility] Administration Aspirin 81 mg 09/24/16 18:30 10/05/16 09:14 Aspirin Chewable PO 81 mg DAILY [facility] Administration Budesonide 0.5 mg 10/02/16 20:00 10/16/16 07:22 Pulmicort Respules INH 0.5 mg RQ12 [facility] Administration Clopidogrel Bisulfate 75 mg 09/26/16 10:00 10/05/16 09:14 Plavix PO 75 mg DAILY [facility] Administration Diltiazem HCl 60 mg 10/10/16 14:00 10/16/16 14:50 Cardizem GT 60 mg QID [facility] Administration Enoxaparin Sodium 40 mg 09/26/16 13:00 10/05/16 09:14 Lovenox SC 40 mg DAILY [facility] Administration Famotidine 20 mg 10/08/16 10:00 10/16/16 09:57 Pepcid IVP 20 mg DAILY [facility] Administration Doxycycline Hyclate 100 mg/ 100 mls @ 100 mls/hr 10/13/16 09:00 10/16/16 10:13 Sodium Chloride IVPB 100 mls/hr Q12H [facility] Administration Metronidazole 100 mls @ 100 mls/hr 10/13/16 08:00 10/16/16 10:02 Flagyl IVPB 100 mls/hr Q8H [facility] Administration Insulin Human Regular 0 unit 10/09/16 00:01 10/16/16 12:58 Novolin R SC Not Given Q6H [facility] Protocol Lisinopril 20 mg 10/05/16 18:00 10/16/16 09:57 Zestril NG 20 mg BID [facility] Administration Methylprednisolone 20 mg 10/07/16 10:00 10/16/16 09:56 Solu-Medrol IV 20 mg DAILY [facility] Administration Midazolam HCl 2 mg 10/13/16 12:35 10/14/16 06:54 Versed Inj IVP 2 mg Q4H PRN Administration Agitation Polyethylene Glycol 17 gm 10/06/16 10:00 10/15/16 11:19 Miralax PO Not Given DAILY [facility] Rosuvastatin Calcium 10 mg 09/23/16 22:00 10/15/16 22:44 Crestor PO 10 mg HS [facility] Administration - Patient Studies Lab Studies: Microbiology Studies 10/15/16 16:04 Gram Stain - Final Pleural Fluid Body Fluid Culture - Preliminary NO GROWTH AFTER 24 HOURS Lab Studies 10/16/16 10/16/16 10/16/16 Range/Units 12:08 06:30 06:01 WBC 10.5 (4.8-10.8) K/uL RBC 3.27 L (3.80-5.20) Mil/uL Hgb 10.0 L (11.0-16.0) g/dL Hct 30.3 L (34.0-47.0) % MCV 92.9 (81.0-99.0) fL MCH 30.8 (27.0-31.0) pg MCHC 33.1 (33.0-37.0) g/dL RDW 14.6 H (11.5-14.5) % Plt Count 115 L (130-400) K/uL MPV 9.8 (7.2-11.7) fL Neut % (Auto) 89.3 H (50.0-75.0) % Lymph % (Auto) 5.4 L (20.0-40.0) % [place] % (Auto) 4.9 (0.0-10.0) % Eos % (Auto) 0.1 (0.0-4.0) % Baso % (Auto) 0.3 (0.0-2.0) % Neut # 9.4 H (1.8-7.0) K/uL Lymph # 0.6 L (1.0-4.3) K/uL [place] # 0.5 (0.0-0.8) K/uL Eos # 0.0 (0.0-0.7) K/uL Baso # 0.0 (0.0-0.2) K/uL Neutrophils % (Manual) 82 H (50-75) % Band Neutrophils % 6 H (0-2) % Lymphocytes % (Manual) 6 L (20-40) % Monocytes % (Manual) 5 (0-10) % Metamyelocytes % 1 H (0-0) % Platelet Estimate Slightly decreased L (NORMAL) Large Platelets Present Tear Drop Cells Slight Puncture Site pCO2 (35-45) mm/Hg pO2 (80-100) mm/Hg HCO3 (21-28) mmol/L ABG pH (7.35-7.45) ABG Total CO2 (22-28) mmol/L ABG O2 Saturation (95-98) % ABG Base Excess (-2.0-3.0) mmol/L ABG Hemoglobin (11.7-17.4) g/dL ABG Carboxyhemoglobin (0.5-1.5) % POC ABG HHb (Measured) (0.0-5.0) % ABG Methemoglobin (0.0-3.0) % Fish Test A-a O2 Difference mm/Hg Respiratory Index Hgb O2 Saturation (95.0-98.0) % Mechanical Rate FiO2 % Tidal Volume PEEP Sodium 148 (132-148) mmol/L Potassium 2.9 L (3.6-5.2) mmol/L Chloride 115 H (98-107) mmol/L Carbon Dioxide 22 (22-30) mmol/L Anion Gap 14 (10-20) BUN 44 H (7-17) mg/dL Creatinine 1.5 H (0.7-1.2) MG/DL Est GFR ( Amer) 40 Est GFR (Non-Af Amer) 33 POC Glucose (mg/dL) 136 H 124 H (65-110) mg/dL Random Glucose 102 (65-105) mg/dL Lactic Acid (0.7-2.1) mmol/L Calcium 7.8 L (8.6-10.4) mg/dl Phosphorus 3.6 (2.5-4.5) mg/dL Magnesium 1.8 (1.6-2.3) mg/dL Total Bilirubin 0.5 (0.2-1.3) mg/dL AST 21 (14-36) U/L ALT 48 (9-52) U/L Alkaline Phosphatase 49 (38-126) U/L Lactate Dehydrogenase (313-618) U/L Total Protein 4.5 L (6.3-8.3) g/dL Albumin 2.2 L (3.5-5.0) g/dL Globulin 2.3 (2.2-3.9) gm/dL Albumin/Globulin Ratio 1.0 (1.0-2.1) Fluid Source Fluid Appearance (CLEAR) Fluid WBC (0.0-300.0) /mm3 Fluid RBC (0.0-0.0) /mm3 Fluid Tot Cell Count (0-0) Fluid Neutrophils (0-0) % Fluid Lymphocytes (0-0) % Fld Monocyte/Macrophag (0-0) % Fluid Comment 10/16/16 10/16/16 10/15/16 Range/Units 04:25 00:01 17:47 WBC (4.8-10.8) K/uL RBC (3.80-5.20) Mil/uL Hgb (11.0-16.0) g/dL Hct (34.0-47.0) % MCV (81.0-99.0) fL MCH (27.0-31.0) pg MCHC (33.0-37.0) g/dL RDW (11.5-14.5) % Plt Count (130-400) K/uL MPV (7.2-11.7) fL Neut % (Auto) (50.0-75.0) % Lymph % (Auto) (20.0-40.0) % [place] % (Auto) (0.0-10.0) % Eos % (Auto) (0.0-4.0) % Baso % (Auto) (0.0-2.0) % Neut # (1.8-7.0) K/uL Lymph # (1.0-4.3) K/uL [place] # (0.0-0.8) K/uL Eos # (0.0-0.7) K/uL Baso # (0.0-0.2) K/uL Neutrophils % (Manual) (50-75) % Band Neutrophils % (0-2) % Lymphocytes % (Manual) (20-40) % Monocytes % (Manual) (0-10) % Metamyelocytes % (0-0) % Platelet Estimate (NORMAL) Large Platelets Tear Drop Cells Puncture Site Rr pCO2 41 (35-45) mm/Hg pO2 128 H (80-100) mm/Hg HCO3 22.8 (21-28) mmol/L ABG pH 7.35 (7.35-7.45) ABG Total CO2 23.9 (22-28) mmol/L ABG O2 Saturation 99.8 H (95-98) % ABG Base Excess -2.8 L (-2.0-3.0) mmol/L ABG Hemoglobin 9.6 L (11.7-17.4) g/dL ABG Carboxyhemoglobin 1.9 H (0.5-1.5) % POC ABG HHb (Measured) 0.2 (0.0-5.0) % ABG Methemoglobin 0.8 (0.0-3.0) % Fish Test Pos A-a O2 Difference 177.0 mm/Hg Respiratory Index 1.4 Hgb O2 Saturation 97.1 (95.0-98.0) % Mechanical Rate 16 FiO2 50.0 % Tidal Volume 400 PEEP 5 Sodium (132-148) mmol/L Potassium (3.6-5.2) mmol/L Chloride (98-107) mmol/L Carbon Dioxide (22-30) mmol/L Anion Gap (10-20) BUN (7-17) mg/dL Creatinine (0.7-1.2) MG/DL Est GFR ( Amer) Est GFR (Non-Af Amer) POC Glucose (mg/dL) 171 H 187 H (65-110) mg/dL Random Glucose (65-105) mg/dL Lactic Acid (0.7-2.1) mmol/L Calcium (8.6-10.4) mg/dl Phosphorus (2.5-4.5) mg/dL Magnesium (1.6-2.3) mg/dL Total Bilirubin (0.2-1.3) mg/dL AST (14-36) U/L ALT (9-52) U/L Alkaline Phosphatase (38-126) U/L Lactate Dehydrogenase (313-618) U/L Total Protein (6.3-8.3) g/dL Albumin (3.5-5.0) g/dL Globulin (2.2-3.9) gm/dL Albumin/Globulin Ratio (1.0-2.1) Fluid Source Fluid Appearance (CLEAR) Fluid WBC (0.0-300.0) /mm3 Fluid RBC (0.0-0.0) /mm3 Fluid Tot Cell Count (0-0) Fluid Neutrophils (0-0) % Fluid Lymphocytes (0-0) % Fld Monocyte/Macrophag (0-0) % Fluid Comment 10/15/16 10/15/16 Range/Units 16:19 16:01 WBC (4.8-10.8) K/uL RBC (3.80-5.20) Mil/uL Hgb (11.0-16.0) g/dL Hct (34.0-47.0) % MCV (81.0-99.0) fL MCH (27.0-31.0) pg MCHC (33.0-37.0) g/dL RDW (11.5-14.5) % Plt Count (130-400) K/uL MPV (7.2-11.7) fL Neut % (Auto) (50.0-75.0) % Lymph % (Auto) (20.0-40.0) % [place] % (Auto) (0.0-10.0) % Eos % (Auto) (0.0-4.0) % Baso % (Auto) (0.0-2.0) % Neut # (1.8-7.0) K/uL Lymph # (1.0-4.3) K/uL [place] # (0.0-0.8) K/uL Eos # (0.0-0.7) K/uL Baso # (0.0-0.2) K/uL Neutrophils % (Manual) (50-75) % Band Neutrophils % (0-2) % Lymphocytes % (Manual) (20-40) % Monocytes % (Manual) (0-10) % Metamyelocytes % (0-0) % Platelet Estimate (NORMAL) Large Platelets Tear Drop Cells Puncture Site pCO2 (35-45) mm/Hg pO2 (80-100) mm/Hg HCO3 (21-28) mmol/L ABG pH (7.35-7.45) ABG Total CO2 (22-28) mmol/L ABG O2 Saturation (95-98) % ABG Base Excess (-2.0-3.0) mmol/L ABG Hemoglobin (11.7-17.4) g/dL ABG Carboxyhemoglobin (0.5-1.5) % POC ABG HHb (Measured) (0.0-5.0) % ABG Methemoglobin (0.0-3.0) % Fish Test A-a O2 Difference mm/Hg Respiratory Index Hgb O2 Saturation (95.0-98.0) % Mechanical Rate FiO2 % Tidal Volume PEEP Sodium (132-148) mmol/L Potassium (3.6-5.2) mmol/L Chloride (98-107) mmol/L Carbon Dioxide (22-30) mmol/L Anion Gap (10-20) BUN (7-17) mg/dL Creatinine (0.7-1.2) MG/DL Est GFR ( Amer) Est GFR (Non-Af Amer) POC Glucose (mg/dL) (65-110) mg/dL Random Glucose (65-105) mg/dL Lactic Acid 0.7 (0.7-2.1) mmol/L Calcium (8.6-10.4) mg/dl Phosphorus (2.5-4.5) mg/dL Magnesium (1.6-2.3) mg/dL Total Bilirubin (0.2-1.3) mg/dL AST (14-36) U/L ALT (9-52) U/L Alkaline Phosphatase (38-126) U/L Lactate Dehydrogenase 728 H (313-618) U/L Total Protein (6.3-8.3) g/dL Albumin (3.5-5.0) g/dL Globulin (2.2-3.9) gm/dL Albumin/Globulin Ratio (1.0-2.1) Fluid Source Pleural/thoracentesi Fluid Appearance Sl cloudy (CLEAR) Fluid WBC 486.0 H (0.0-300.0) /mm3 Fluid RBC 81042.0 H (0.0-0.0) /mm3 Fluid Tot Cell Count 100 H (0-0) Fluid Neutrophils 40.0 H (0-0) % Fluid Lymphocytes 43.0 H (0-0) % Fld Monocyte/Macrophag 17 H (0-0) % Fluid Comment Laboratory Results - last 24 hr 10/15/16 10/15/16 10/15/16 16:01 16:19 17:47 WBC RBC Hgb Hct MCV MCH MCHC RDW Plt Count MPV Neut % (Auto) Lymph % (Auto) [place] % (Auto) Eos % (Auto) Baso % (Auto) Neut # Lymph # [place] # Eos # Baso # Neutrophils % (Manual) Band Neutrophils % Lymphocytes % (Manual) Monocytes % (Manual) Metamyelocytes % Platelet Estimate Large Platelets Tear Drop Cells Puncture Site pCO2 pO2 HCO3 ABG pH ABG Total CO2 ABG O2 Saturation ABG Base Excess ABG Hemoglobin ABG Carboxyhemoglobin POC ABG HHb (Measured) ABG Methemoglobin Fish Test A-a O2 Difference Respiratory Index Hgb O2 Saturation Mechanical Rate FiO2 Tidal Volume PEEP Sodium Potassium Chloride Carbon Dioxide Anion Gap BUN Creatinine Est GFR ( Amer) Est GFR (Non-Af Amer) POC Glucose (mg/dL) 187 H Random Glucose Lactic Acid 0.7 Calcium Phosphorus Magnesium Total Bilirubin AST ALT Alkaline Phosphatase Lactate Dehydrogenase 728 H Total Protein Albumin Globulin Albumin/Globulin Ratio Fluid Source Pleural/thoracentesi Fluid Appearance Sl cloudy Fluid WBC 486.0 H Fluid RBC 72148.0 H Fluid Tot Cell Count 100 H Fluid Neutrophils 40.0 H Fluid Lymphocytes 43.0 H Fld Monocyte/Macrophag 17 H Fluid Comment 10/16/16 10/16/16 10/16/16 00:01 04:25 06:01 WBC RBC Hgb Hct MCV MCH MCHC RDW Plt Count MPV Neut % (Auto) Lymph % (Auto) [place] % (Auto) Eos % (Auto) Baso % (Auto) Neut # Lymph # [place] # Eos # Baso # Neutrophils % (Manual) Band Neutrophils % Lymphocytes % (Manual) Monocytes % (Manual) Metamyelocytes % Platelet Estimate Large Platelets Tear Drop Cells Puncture Site Rr pCO2 41 pO2 128 H HCO3 22.8 ABG pH 7.35 ABG Total CO2 23.9 ABG O2 Saturation 99.8 H ABG Base Excess -2.8 L ABG Hemoglobin 9.6 L ABG Carboxyhemoglobin 1.9 H POC ABG HHb (Measured) 0.2 ABG Methemoglobin 0.8 Fish Test Pos A-a O2 Difference 177.0 Respiratory Index 1.4 Hgb O2 Saturation 97.1 Mechanical Rate 16 FiO2 50.0 Tidal Volume 400 PEEP 5 Sodium Potassium Chloride Carbon Dioxide Anion Gap BUN Creatinine Est GFR ( Amer) Est GFR (Non-Af Amer) POC Glucose (mg/dL) 171 H 124 H Random Glucose Lactic Acid Calcium Phosphorus Magnesium Total Bilirubin AST ALT Alkaline Phosphatase Lactate Dehydrogenase Total Protein Albumin Globulin Albumin/Globulin Ratio Fluid Source Fluid Appearance Fluid WBC Fluid RBC Fluid Tot Cell Count Fluid Neutrophils Fluid Lymphocytes Fld Monocyte/Macrophag Fluid Comment 10/16/16 10/16/16 06:30 12:08 WBC 10.5 RBC 3.27 L Hgb 10.0 L Hct 30.3 L MCV 92.9 MCH 30.8 MCHC 33.1 RDW 14.6 H Plt Count 115 L MPV 9.8 Neut % (Auto) 89.3 H Lymph % (Auto) 5.4 L [place] % (Auto) 4.9 Eos % (Auto) 0.1 Baso % (Auto) 0.3 Neut # 9.4 H Lymph # 0.6 L [place] # 0.5 Eos # 0.0 Baso # 0.0 Neutrophils % (Manual) 82 H Band Neutrophils % 6 H Lymphocytes % (Manual) 6 L Monocytes % (Manual) 5 Metamyelocytes % 1 H Platelet Estimate Slightly decreased L Large Platelets Present Tear Drop Cells Slight Puncture Site pCO2 pO2 HCO3 ABG pH ABG Total CO2 ABG O2 Saturation ABG Base Excess ABG Hemoglobin ABG Carboxyhemoglobin POC ABG HHb (Measured) ABG Methemoglobin Fish Test A-a O2 Difference Respiratory Index Hgb O2 Saturation Mechanical Rate FiO2 Tidal Volume PEEP Sodium 148 Potassium 2.9 L Chloride 115 H Carbon Dioxide 22 Anion Gap 14 BUN 44 H Creatinine 1.5 H Est GFR ( Amer) 40 Est GFR (Non-Af Amer) 33 POC Glucose (mg/dL) 136 H Random Glucose 102 Lactic Acid Calcium 7.8 L Phosphorus 3.6 Magnesium 1.8 Total Bilirubin 0.5 AST 21 ALT 48 Alkaline Phosphatase 49 Lactate Dehydrogenase Total Protein 4.5 L Albumin 2.2 L Globulin 2.3 Albumin/Globulin Ratio 1.0 Fluid Source Fluid Appearance Fluid WBC Fluid RBC Fluid Tot Cell Count Fluid Neutrophils Fluid Lymphocytes Fld Monocyte/Macrophag Fluid Comment Assessment/Plan (1) Acute respiratory failure with hypoxia and hypercarbia Current Visit: Yes Status: Resolved Comment: Patient was reintubated Continue ventilatory support and reduce FiO2 as tolerated wean as tolerated Thoracentesis by IR Continue antibiotics IV steroids and nebulizer treatment Seen by GI for colonic distention (2) COPD (chronic obstructive pulmonary disease) Current Visit: Yes Status: Chronic (3) Acute OK Current Visit: Yes Status: Acute (4) Leucocytosis Current Visit: Yes Status: Acute Attending/Attestation - Attestation I have personally seen and examined this patient.: Yes I have fully participated in the care of the patient.: Yes I have reviewed all pertinent clinical information: Yes Notes (Text): 10/16/16 15:23 Patient seen and examined in the intensive care unit. Case discussed with staff in the morning rounds. Tolerating CPAP since morning Status post thoracentesis Patient was seen by surgery for colonic distention and recommended a rectal tube placement for decompression Feeding on hold Continue antibiotics and nebulizer treatment
[2016-10-16] MEDS: MethylPREDNISolone 40 mg Vial IV SCH (09:56)
[2016-10-16] MEDS: Potassium Chloride 20 mEq 100 ML IVPB SCH ×3 (09:58→12:57)
[2016-10-16] MEDS: metroNIDAZOLE IV 500 mg/100 ml 100 ML IVPB SCH ×4 (10:02→23:32)
--- NOTE | 2016-10-16 13:06 | CP.PCM.PN ---
Subjective - Date & Time of Evaluation Date of Evaluation: 10/16/16 Time of Evaluation: 13:03 - Subjective Subjective: CC: Follow up colon ileus [address]- Colon distension. Cecum 9 cm diameter. Ascites. No obstruction. Discussed with family at bedside. Objective - Vital Signs/Intake and Output Vital Signs (last 24 hours): Temp Pulse Resp BP Pulse Ox 97.2 F L 83 28 H 117/72 100 10/16/16 04:00 10/16/16 11:00 10/16/16 11:00 10/16/16 11:00 10/16/16 11:00 Intake and Output: 10/16/16 10/16/16 06:59 18:59 Intake Total 330 400 Output Total 555 110 Balance -225 290 - Medications Medications: Current Medications Albuterol/Ipratropium (Duoneb 3 Mg/0.5 Mg (3 Ml) Ud) 3 ml INH RQ4 [facility] Last Admin: 10/16/16 11:14 Dose: 3 ml Aspirin (Aspirin Chewable) 81 mg PO DAILY [facility] Last Admin: 10/05/16 09:14 Dose: 81 mg Budesonide (Pulmicort Respules) 0.5 mg INH RQ12 [facility] Last Admin: 10/16/16 07:22 Dose: 0.5 mg Clopidogrel Bisulfate (Plavix) 75 mg PO DAILY [facility] Last Admin: 10/05/16 09:14 Dose: 75 mg Diltiazem HCl (Cardizem) 60 mg GT QID [facility] Last Admin: 10/16/16 09:57 Dose: 60 mg Enoxaparin Sodium (Lovenox) 40 mg SC DAILY [facility] Last Admin: 10/05/16 09:14 Dose: 40 mg Famotidine (Pepcid) 20 mg IVP DAILY [facility] Last Admin: 10/16/16 09:57 Dose: 20 mg Doxycycline Hyclate 100 mg/ (Sodium Chloride) 100 mls @ 100 mls/hr IVPB Q12H [facility] Last Admin: 10/16/16 10:13 Dose: 100 mls/hr Metronidazole (Flagyl) 100 mls @ 100 mls/hr IVPB Q8H [facility] Last Admin: 10/16/16 10:02 Dose: 100 mls/hr Potassium Chloride (Potassium Chloride 20 Meq/100 Ml) 100 mls @ 50 mls/hr IVPB Q2H [facility] Stop: 10/16/16 14:59 Last Admin: 10/16/16 12:57 Dose: 50 mls/hr Insulin Human Regular (Novolin R) 0 unit SC Q6H [facility] PRN Reason: Protocol Last Admin: 10/16/16 12:58 Dose: Not Given Lisinopril (Zestril) 20 mg NG BID [facility] Last Admin: 10/16/16 09:57 Dose: 20 mg Methylprednisolone (Solu-Medrol) 20 mg IV DAILY [facility] Last Admin: 10/16/16 09:56 Dose: 20 mg Midazolam HCl (Versed Inj) 2 mg IVP Q4H PRN PRN Reason: Agitation Last Admin: 10/14/16 06:54 Dose: 2 mg Polyethylene Glycol (Miralax) 17 gm PO DAILY [facility] Last Admin: 10/15/16 11:19 Dose: Not Given Rosuvastatin Calcium (Crestor) 10 mg PO HS [facility] Last Admin: 10/15/16 22:44 Dose: 10 mg - Labs Labs: 10/16/16 06:30 10/16/16 06:30 PT 12.3 SECONDS (9.7-12.2) H 10/06/16 01:34 INR 1.1 10/06/16 01:34 APTT 27 SECONDS (21-34) 10/06/16 01:34 - Constitutional Appears: Chronically Ill - ENT Exam Additional comments: On Ventilator OG Tube - Respiratory Exam Respiratory Exam: Decreased Breath Sounds - Cardiovascular Exam Cardiovascular Exam: REGULAR RHYTHM - GI/Abdominal Exam GI & Abdominal Exam: Distended, Firm, Diminished Bowel Sounds. absent: Tenderness, Organomegaly, Rebound Assessment and Plan (1) Respiratory failure Assessment & Plan: Vent dependant Managed by Critical Care Status: Chronic (2) Abdominal distension Assessment & Plan: Colon distension, without obstruction. Rec: Hold feeds. Rectal tube decompression. Discussed with family. Status: Acute
--- NOTE | 2016-10-16 13:47 | CP.PCM.PN ---
<Scott Wiggins - Last Filed: 10/16/16 13:44> Subjective - Date & Time of Evaluation Date of Evaluation: 10/16/16 Time of Evaluation: 08:50 - Subjective Subjective: General Surgery Pt S&E, NAEO. Pt intubated. Opens eyes to voice. + BMs. Pt shakes head "no" when asks about any abd pain. Objective - Vital Signs/Intake and Output Vital Signs (last 24 hours): Temp Pulse Resp BP Pulse Ox 97.2 F L 83 28 H 117/72 100 10/16/16 04:00 10/16/16 11:00 10/16/16 11:00 10/16/16 11:00 10/16/16 11:00 Intake and Output: 10/16/16 10/16/16 06:59 18:59 Intake Total 330 400 Output Total 555 110 Balance -225 290 - Medications Medications: Current Medications Albuterol/Ipratropium (Duoneb 3 Mg/0.5 Mg (3 Ml) Ud) 3 ml INH RQ4 [facility] Last Admin: 10/16/16 11:14 Dose: 3 ml Aspirin (Aspirin Chewable) 81 mg PO DAILY [facility] Last Admin: 10/05/16 09:14 Dose: 81 mg Budesonide (Pulmicort Respules) 0.5 mg INH RQ12 [facility] Last Admin: 10/16/16 07:22 Dose: 0.5 mg Clopidogrel Bisulfate (Plavix) 75 mg PO DAILY [facility] Last Admin: 10/05/16 09:14 Dose: 75 mg Diltiazem HCl (Cardizem) 60 mg GT QID [facility] Last Admin: 10/16/16 09:57 Dose: 60 mg Enoxaparin Sodium (Lovenox) 40 mg SC DAILY [facility] Last Admin: 10/05/16 09:14 Dose: 40 mg Famotidine (Pepcid) 20 mg IVP DAILY [facility] Last Admin: 10/16/16 09:57 Dose: 20 mg Doxycycline Hyclate 100 mg/ (Sodium Chloride) 100 mls @ 100 mls/hr IVPB Q12H [facility] Last Admin: 10/16/16 10:13 Dose: 100 mls/hr Metronidazole (Flagyl) 100 mls @ 100 mls/hr IVPB Q8H [facility] Last Admin: 10/16/16 10:02 Dose: 100 mls/hr Potassium Chloride (Potassium Chloride 20 Meq/100 Ml) 100 mls @ 50 mls/hr IVPB Q2H [facility] Stop: 10/16/16 14:59 Last Admin: 10/16/16 12:57 Dose: 50 mls/hr Insulin Human Regular (Novolin R) 0 unit SC Q6H [facility] PRN Reason: Protocol Last Admin: 10/16/16 12:58 Dose: Not Given Lisinopril (Zestril) 20 mg NG BID [facility] Last Admin: 10/16/16 09:57 Dose: 20 mg Methylprednisolone (Solu-Medrol) 20 mg IV DAILY [facility] Last Admin: 10/16/16 09:56 Dose: 20 mg Midazolam HCl (Versed Inj) 2 mg IVP Q4H PRN PRN Reason: Agitation Last Admin: 10/14/16 06:54 Dose: 2 mg Polyethylene Glycol (Miralax) 17 gm PO DAILY [facility] Last Admin: 10/15/16 11:19 Dose: Not Given Rosuvastatin Calcium (Crestor) 10 mg PO HS [facility] Last Admin: 10/15/16 22:44 Dose: 10 mg - Labs Labs: 10/16/16 06:30 10/16/16 06:30 PT 12.3 SECONDS (9.7-12.2) H 10/06/16 01:34 INR 1.1 10/06/16 01:34 APTT 27 SECONDS (21-34) 10/06/16 01:34 - Constitutional Appears: No Acute Distress, Chronically Ill - Head Exam Head Exam: ATRAUMATIC, NORMOCEPHALIC - Eye Exam Eye Exam: EOMI. absent: Scleral icterus - Respiratory Exam Respiratory Exam: NORMAL BREATHING PATTERN (on vent). absent: Respiratory Distress - GI/Abdominal Exam GI & Abdominal Exam: Distended. absent: Firm, Guarding, Rigid, Tenderness, Rebound - Neurological Exam Neurological Exam: Alert, Awake - Skin Skin Exam: Dry, Warm Assessment and Plan - Assessment and Plan (Free Text) Assessment: 86 y/o female w/ colonic ileus Plan: Place rectal tube for decompression. Continue to monitor D/W Dr. Tony Wiggins PGY3 <Jai Jimenez - Last Filed: 10/16/16 16:44> Objective - Vital Signs/Intake and Output Vital Signs (last 24 hours): Temp Pulse Resp BP Pulse Ox 97.2 F L 77 15 128/64 100 10/16/16 04:00 10/16/16 15:39 10/16/16 15:39 10/16/16 15:39 10/16/16 15:39 Intake and Output: 10/16/16 10/16/16 06:59 18:59 Intake Total 330 600 Output Total 555 480 Balance -225 120 - Medications Medications: Current Medications Albuterol/Ipratropium (Duoneb 3 Mg/0.5 Mg (3 Ml) Ud) 3 ml INH RQ4 [facility] Last Admin: 10/16/16 15:55 Dose: 3 ml Aspirin (Aspirin Chewable) 81 mg PO DAILY [facility] Last Admin: 10/05/16 09:14 Dose: 81 mg Budesonide (Pulmicort Respules) 0.5 mg INH RQ12 [facility] Last Admin: 10/16/16 07:22 Dose: 0.5 mg Clopidogrel Bisulfate (Plavix) 75 mg PO DAILY [facility] Last Admin: 10/05/16 09:14 Dose: 75 mg Diltiazem HCl (Cardizem) 60 mg GT QID [facility] Last Admin: 10/16/16 14:50 Dose: 60 mg Enoxaparin Sodium (Lovenox) 40 mg SC DAILY [facility] Last Admin: 10/05/16 09:14 Dose: 40 mg Famotidine (Pepcid) 20 mg IVP DAILY [facility] Last Admin: 10/16/16 09:57 Dose: 20 mg Doxycycline Hyclate 100 mg/ (Sodium Chloride) 100 mls @ 100 mls/hr IVPB Q12H [facility] Last Admin: 10/16/16 10:13 Dose: 100 mls/hr Metronidazole (Flagyl) 100 mls @ 100 mls/hr IVPB Q8H [facility] Last Admin: 10/16/16 15:36 Dose: 100 mls/hr Insulin Human Regular (Novolin R) 0 unit SC Q6H [facility] PRN Reason: Protocol Last Admin: 10/16/16 12:58 Dose: Not Given Lisinopril (Zestril) 20 mg NG BID [facility] Last Admin: 10/16/16 09:57 Dose: 20 mg Methylprednisolone (Solu-Medrol) 20 mg IV DAILY [facility] Last Admin: 10/16/16 09:56 Dose: 20 mg Midazolam HCl (Versed Inj) 2 mg IVP Q4H PRN PRN Reason: Agitation Last Admin: 10/14/16 06:54 Dose: 2 mg Polyethylene Glycol (Miralax) 17 gm PO DAILY [facility] Last Admin: 10/15/16 11:19 Dose: Not Given Rosuvastatin Calcium (Crestor) 10 mg PO HS [facility] Last Admin: 10/15/16 22:44 Dose: 10 mg - Labs Labs: 10/16/16 06:30 10/16/16 06:30 PT 12.3 SECONDS (9.7-12.2) H 10/06/16 01:34 INR 1.1 10/06/16 01:34 APTT 27 SECONDS (21-34) 10/06/16 01:34 Attending/Attestation - Attestation I have personally seen and examined this patient.: Yes I have fully participated in the care of the patient.: Yes I have reviewed all pertinent clinical information, including history, physical exam and plan: Yes Notes (Text): 10/16/16 16:40 Pt was seen and examined at bedside on 10/16/16 Agree with above note and assessment. Pt with Distention of abdomen without abdominal pain. CT scan reviewed All 9 system reviewed and examined Ass: Colonic inertia with colonic dilatation and Ileus Multiple medical comorbidites Plan d/w Dr. Pace and at bedside. Pt would need rectal tube at present Possible Sigmoidoscopy or Colonoscopy C/w current mx
--- NOTE | 2016-10-16 13:53 | RAD ---
HISTORY: intubated, s/p thoracentesis COMPARISON: Chest x-ray performed 10/15/16, CT chest abdomen and pelvis performed 10/15/16 TECHNIQUE: Chest, one view. FINDINGS: Right-sided central venous catheter terminates at the expected location of the SVC. Endotracheal tube terminates approximately 4.3 cm above the level of the vicente. Nasogastric tube extends expected location of the stomach. Multiple external wires and leads obscure evaluation of the underlying parenchyma. LUNGS: Small left pleural effusion. Central vascular prominence. No definite pneumothorax. Please note that chest x-ray has limited sensitivity for the detection of pulmonary masses. CARDIOVASCULAR: Cardiomegaly. Enlarged mediastinum may be exaggerated by patient obliquity. Atherosclerotic calcifications of the aorta. OSSEOUS STRUCTURES: No acute osseous abnormality identified. VISUALIZED UPPER ABDOMEN: Unremarkable. OTHER FINDINGS: None. IMPRESSION: Right-sided central venous catheter terminates at the expected location of the SVC. Endotracheal tube terminates approximately 4.3 cm above the level of the vicente. Nasogastric tube extends expected location of the stomach. Prominence of the bilateral nabeel and mediastinum appear artifactual due to technique; recommend repeat study with patient in improved alignment for confirmation. Small left pleural effusion. Central vascular congestion.
--- NOTE | 2016-10-16 15:42 | CON ---
DATE: 10/16/2016 REQUESTING PHYSICIAN: Dr. Fred Thomas This is an 86-year-old white female who has been a heavy smoker all life, severe COPD, who was karrie t in about 3 weeks ago to [facility] with intubation. Hospital course was reviewed. Case was d iscussed with Dr. Fred Thomas, Dr. Yo, the GI physician Dr. Ayala and the surgeon. The patient during hospitalization has developed left pleural effusion, which turned out to be empyema, was kayla swenson. Repeat chest x-ray showed improvement in the pleural effusion. Currently, she is on antibiotic s. She also has a mild renal insufficiency. Electrolyte imbalance has been corrected. The patient' s niece ____ at the bedside, case was discussed with them also. PAST MEDICAL HISTORY: Severe COPD, otherwise unremarkable. Echocardiogram in the past had shown normal LV systolic function. Nuclear stress test to my recollec tion was unremarkable. This was done a few years ago. ALLERGIES: Denied. FAMILY HISTORY: Negative for premature coronary artery disease. She lives alone. She is . PERSONAL HISTORY: More than a pack per day smoker for many years. No ETOH abuse. REVIEW OF SYSTEMS: Generalized weakness is noted. No fever, no chills. Nonproductive cough and whe ezing. No visual disturbances. Shortness of breath on minimal exertion. No chest pains. No GI iss ues. No hematemesis, no melena, no hemoptysis. No history of TIAs or CVAs. No documented AR. Mild arthritis involving the knees. History of depression, but not on any medication. Blood work has be en done in the past with ____ and has been acceptable. MEDICATIONS AT HOME: Include nebulizer treatment, Ventolin and Advair and Symbicort. She is also on lisinopril for hypertension. PHYSICAL EXAMINATION: GENERAL: Shows elderly white female who is conscious, alert, follows simple commands, intubated on t he ventilator, in no acute distress. VITAL SIGNS: She is 5 feet 2 inches and weighs 170 pounds. Her blood pressure is 148/70, heart rate of 88 and regular, sinus on the monitor, respiratory rate of 20, temperature of 98. HEAD: Normocephalic. EYES: No pallor, no icterus. MOUTH: No exudates. Mucous membrane appears moist, intubated. NECK: Supple. No carotid bruits. LUNGS: Clear anteriorly. HEART: PMI is not localized. S1, S2 is distant. No definite gallops or murmurs can be appreciated. ABDOMEN: Distended, soft. EXTREMITIES: No cyanosis, clubbing or edema. Distal pulses are intact. NEUROLOGIC: No focal sign. LABORATORY DATA: Potassium is 2.9, being corrected. Creatinine is 1.5, BUN is 44. Platelet count i s 115. Chest x-ray had shown improvement in the left pleural effusion. EKG had sinus tachycardia. Echocardiogram had a normal LV systolic function. Difficult study. CT of the abdomen had shown dila maría elena cecum and large intestine. 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 Paralytic ____. RECOMMENDATIONS: The recommendation at this point is conservative treatment as per surgical and GI c are. Antibiotics. Pulmonary cath. The patient would probably benefit from a tracheostomy. Care an d plan was explained to the patient's family who was at the bedside. Prognosis remains poor. Gianni Pace MD cc: [id number] TT: 10/16/2016 15:41:56 Confirmation # [id number] Dictation # [id number]
--- NOTE | 2016-10-16 23:34 | CP.PCM.PN ---
Subjective - Date & Time of Evaluation Date of Evaluation: 10/16/16 Time of Evaluation: 13:13 - Subjective Subjective: Pt S&E, NAEO.s/p thoracocentesis. Pt intubated. Opens eyes to voice. + BMs. Pt shakes head "no" when asks about any abd pain. Objective - Vital Signs/Intake and Output Vital Signs (last 24 hours): Temp Pulse Resp BP Pulse Ox 97.6 F 82 24 126/66 100 10/16/16 16:00 10/16/16 23:00 10/16/16 23:00 10/16/16 23:00 10/16/16 23:00 Intake and Output: 10/16/16 10/17/16 18:59 06:59 Intake Total 600 150 Output Total 1090 145 Balance -490 5 - Medications Medications: Current Medications Albuterol/Ipratropium (Duoneb 3 Mg/0.5 Mg (3 Ml) Ud) 3 ml INH RQ4 [facility] Last Admin: 10/16/16 23:29 Dose: 3 ml Aspirin (Aspirin Chewable) 81 mg PO DAILY [facility] Last Admin: 10/05/16 09:14 Dose: 81 mg Budesonide (Pulmicort Respules) 0.5 mg INH RQ12 [facility] Last Admin: 10/16/16 19:29 Dose: 0.5 mg Clopidogrel Bisulfate (Plavix) 75 mg PO DAILY [facility] Last Admin: 10/05/16 09:14 Dose: 75 mg Diltiazem HCl (Cardizem) 60 mg GT QID [facility] Last Admin: 10/16/16 21:33 Dose: 60 mg Enoxaparin Sodium (Lovenox) 40 mg SC DAILY [facility] Last Admin: 10/05/16 09:14 Dose: 40 mg Famotidine (Pepcid) 20 mg IVP DAILY [facility] Last Admin: 10/16/16 09:57 Dose: 20 mg Doxycycline Hyclate 100 mg/ (Sodium Chloride) 100 mls @ 100 mls/hr IVPB Q12H [facility] Last Admin: 10/16/16 21:28 Dose: 100 mls/hr Metronidazole (Flagyl) 100 mls @ 100 mls/hr IVPB Q8H [facility] Last Admin: 10/16/16 23:32 Dose: 100 mls/hr Insulin Human Regular (Novolin R) 0 unit SC Q6H [facility] PRN Reason: Protocol Last Admin: 10/16/16 18:23 Dose: Not Given Lisinopril (Zestril) 20 mg NG BID [facility] Last Admin: 10/16/16 17:52 Dose: 20 mg Methylprednisolone (Solu-Medrol) 20 mg IV DAILY [facility] Last Admin: 10/16/16 09:56 Dose: 20 mg Midazolam HCl (Versed Inj) 2 mg IVP Q4H PRN PRN Reason: Agitation Last Admin: 10/14/16 06:54 Dose: 2 mg Polyethylene Glycol (Miralax) 17 gm PO DAILY [facility] Last Admin: 10/15/16 11:19 Dose: Not Given Rosuvastatin Calcium (Crestor) 10 mg PO HS [facility] Last Admin: 10/16/16 21:34 Dose: 10 mg - Labs Labs: 10/16/16 06:30 10/16/16 06:30 PT 12.3 SECONDS (9.7-12.2) H 10/06/16 01:34 INR 1.1 10/06/16 01:34 APTT 27 SECONDS (21-34) 10/06/16 01:34 - Constitutional Appears: No Acute Distress, Chronically Ill - Eye Exam Eye Exam: EOMI, Normal appearance, PERRL Pupil Exam: NORMAL ACCOMODATION, PERRL - Respiratory Exam Respiratory Exam: Decreased Breath Sounds, Rales, Rhonchi - Cardiovascular Exam Cardiovascular Exam: REGULAR RHYTHM, +S1, +S2. absent: Murmur - GI/Abdominal Exam GI & Abdominal Exam: Soft, Normal Bowel Sounds. absent: Tenderness Assessment and Plan (1) Acute respiratory failure with hypoxia and hypercarbia Status: Resolved (2) Altered mental status Status: Resolved (3) Acute [place] Status: Acute (4) Dehydration Status: Acute (5) Abdominal distension Status: Acute (6) COPD (chronic obstructive pulmonary disease) Status: Chronic (7) Pleural effusion Status: Acute
[2016-10-17] MEDS: (Novolin R) Insulin Human Regular 100 units/ml vial SC SCH ×4 (00:09→19:07)
[2016-10-17] MEDS: Albuterol-Ipratrop 3 mg / 0.5 (3 ml) UD INH SCH ×6 (03:06→23:33)
[2016-10-17 04:51] LABS: ABG MECHANICAL RATE 16; ARTERIAL BLOOD HGB O2 SAT 96.8 % (95.0-98.0); ATERIAL BLOOD GAS PEEP 5; CARBOXYHEMOGLOBIN 1.7 % (0.5-1.5); DRAW SITE RB; HHB 0.4 % (0.0-5.0); METHEMOGLOBIN 1.1 % (0.0-3.0)
[2016-10-17 06:38] LABS: BASO % 0.2 % (0.0-2.0); HEMATOCRIT 27.3 % (34.0-47.0); LYMPH # 0.7 K/uL (1.0-4.3); LYMPH % 7.8 % (20.0-40.0); MEAN CELL VOLUME 92.3 fL (81.0-99.0); MEAN CORPUSCULAR HEMOGLOBIN 30.3 pg (27.0-31.0); MEAN CORPUSCULAR HGB CONC 32.8 g/dL (33.0-37.0); MEAN PLATELET VOLUME 10.6 fL (7.2-11.7); MONO # 0.5 K/uL (0.0-0.8); MONO % 5.5 % (0.0-10.0); PLATELET COUNT 112 K/uL (130-400); RED CELL DISTRIBUTION WIDTH 14.8 % (11.5-14.5); WHITE BLOOD COUNT 8.5 K/uL (4.8-10.8)
[2016-10-17 06:44] LABS: BILIRUBIN,TOTAL 0.4 mg/dL (0.2-1.3)
[2016-10-17 06:45] LABS: PHOSPHOROUS 3.9 mg/dL (2.5-4.5); TOTAL PROTEIN 4.3 g/dL (6.3-8.3)
[2016-10-17 06:46] LABS: MAGNESIUM 1.7 mg/dL (1.6-2.3)
[2016-10-17] MEDS: metroNIDAZOLE IV 500 mg/100 ml 100 ML IVPB SCH ×3 (07:30→23:46)
[2016-10-17] MEDS: Budesonide 0.5 mg/2 ml Inhal Susp UD INH SCH ×2 (07:49→19:26)
--- NOTE | 2016-10-17 08:22 | CP.PCM.PN ---
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 She denies any abdominal pain when asked. Rectal tube in place w/ 1100cc drained since placed , brown/green liquid stool. Objective - Vital Signs/Intake and Output Vital Signs (last 24 hours): Temp Pulse Resp BP Pulse Ox 97.6 F 64 16 143/64 100 10/16/16 16:00 10/17/16 06:01 10/17/16 06:01 10/17/16 06:01 10/17/16 06:01 Intake and Output: 10/17/16 10/17/16 06:59 18:59 Intake Total 250 Output Total 885 30 Balance -635 -30 - Medications Medications: Current Medications Albuterol/Ipratropium (Duoneb 3 Mg/0.5 Mg (3 Ml) Ud) 3 ml INH RQ4 [facility] Last Admin: 10/17/16 07:49 Dose: 3 ml Aspirin (Aspirin Chewable) 81 mg PO DAILY [facility] Last Admin: 10/05/16 09:14 Dose: 81 mg Budesonide (Pulmicort Respules) 0.5 mg INH RQ12 [facility] Last Admin: 10/17/16 07:49 Dose: 0.5 mg Clopidogrel Bisulfate (Plavix) 75 mg PO DAILY [facility] Last Admin: 10/05/16 09:14 Dose: 75 mg Diltiazem HCl (Cardizem) 60 mg GT QID [facility] Last Admin: 10/16/16 21:33 Dose: 60 mg Enoxaparin Sodium (Lovenox) 40 mg SC DAILY [facility] Last Admin: 10/05/16 09:14 Dose: 40 mg Famotidine (Pepcid) 20 mg IVP DAILY [facility] Last Admin: 10/16/16 09:57 Dose: 20 mg Doxycycline Hyclate 100 mg/ (Sodium Chloride) 100 mls @ 100 mls/hr IVPB Q12H [facility] Last Admin: 10/16/16 21:28 Dose: 100 mls/hr Metronidazole (Flagyl) 100 mls @ 100 mls/hr IVPB Q8H [facility] Last Admin: 10/17/16 07:30 Dose: 100 mls/hr Insulin Human Regular (Novolin R) 0 unit SC Q6H [facility] PRN Reason: Protocol Last Admin: 10/17/16 05:56 Dose: Not Given Lisinopril (Zestril) 20 mg NG BID [facility] Last Admin: 10/16/16 17:52 Dose: 20 mg Methylprednisolone (Solu-Medrol) 20 mg IV DAILY [facility] Last Admin: 10/16/16 09:56 Dose: 20 mg Midazolam HCl (Versed Inj) 2 mg IVP Q4H PRN PRN Reason: Agitation Last Admin: 10/14/16 06:54 Dose: 2 mg Polyethylene Glycol (Miralax) 17 gm PO DAILY [facility] Last Admin: 10/15/16 11:19 Dose: Not Given Rosuvastatin Calcium (Crestor) 10 mg PO HS [facility] Last Admin: 10/16/16 21:34 Dose: 10 mg - Labs Labs: 10/17/16 06:25 10/17/16 06:25 PT 12.3 SECONDS (9.7-12.2) H 10/06/16 01:34 INR 1.1 10/06/16 01:34 APTT 27 SECONDS (21-34) 10/06/16 01:34 - Constitutional Appears: No Acute Distress - Head Exam Head Exam: ATRAUMATIC, NORMOCEPHALIC - Respiratory Exam Respiratory Exam: absent: Respiratory Distress Additional comments: intubated, on vent - GI/Abdominal Exam GI & Abdominal Exam: Distended, Soft. absent: Guarding, Rigid, Tenderness, Rebound - Neurological Exam Neurological Exam: Alert, Awake - Skin Skin Exam: Dry, Intact Assessment and Plan - Assessment and Plan (Free Text) Assessment: 86yo F w/ colonic ileus Plan: -Continue rectal tube for colonic decompression -Abd xray appears somewhat improved today -Eventually may need colonoscopy -Electrolyte repletion -D/W Dr. Tony León PGY2 <Jai Jimenez - Last Filed: 10/18/16 15:28> Objective - Vital Signs/Intake and Output Vital Signs (last 24 hours): Temp Pulse Resp BP Pulse Ox 97.5 F L 84 29 H 122/74 96 10/18/16 12:00 10/18/16 14:01 10/18/16 14:01 10/18/16 14:01 10/18/16 14:01 Intake and Output: 10/18/16 10/18/16 06:59 18:59 Intake Total 550 700 Output Total 1240 535 Balance -690 165 - Medications Medications: Current Medications Albuterol/Ipratropium (Duoneb 3 Mg/0.5 Mg (3 Ml) Ud) 3 ml INH RQ4 [facility] Last Admin: 10/18/16 13:27 Dose: Not Given Aspirin (Aspirin Chewable) 81 mg PO DAILY [facility] Last Admin: 10/18/16 11:41 Dose: 81 mg Budesonide (Pulmicort Respules) 0.5 mg INH RQ12 [facility] Last Admin: 10/18/16 07:32 Dose: 0.5 mg Clopidogrel Bisulfate (Plavix) 75 mg PO DAILY [facility] Last Admin: 10/18/16 11:42 Dose: 75 mg Diltiazem HCl (Cardizem) 60 mg GT QID [facility] Last Admin: 10/18/16 13:11 Dose: 60 mg Famotidine (Pepcid) 20 mg IVP DAILY [facility] Last Admin: 10/18/16 10:40 Dose: 20 mg Heparin Sodium (Porcine) (Heparin) 5,000 units SC Q12 [facility] Last Admin: 10/18/16 11:41 Dose: 5,000 units Sodium Chloride (Sodium Chloride 0.9%) 1,000 mls @ 60 mls/hr IV .[id number] [facility] Last Admin: 10/18/16 11:40 Dose: 60 mls/hr Insulin Human Regular (Novolin R) 0 unit SC Q6H [facility] PRN Reason: Protocol Last Admin: 10/18/16 11:43 Dose: 2 unit Lisinopril (Zestril) 20 mg NG BID [facility] Last Admin: 10/18/16 10:41 Dose: 20 mg Midazolam HCl (Versed Inj) 2 mg IVP Q4H PRN PRN Reason: Agitation Last Admin: 10/14/16 06:54 Dose: 2 mg Polyethylene Glycol (Miralax) 17 gm PO DAILY [facility] Last Admin: 10/15/16 11:19 Dose: Not Given Rosuvastatin Calcium (Crestor) 10 mg PO HS [facility] Last Admin: 10/17/16 21:44 Dose: 10 mg Tiotropium [place] (Spiriva) 18 mcg INH RQ24 [facility] - Labs Labs: 10/18/16 06:00 10/18/16 06:00 PT 12.3 SECONDS (9.7-12.2) H 10/06/16 01:34 INR 1.1 10/06/16 01:34 APTT 28 SECONDS (21-34) 10/18/16 06:00 Attending/Attestation - Attestation I have personally seen and examined this patient.: Yes I have fully participated in the care of the patient.: Yes I have reviewed all pertinent clinical information, including history, physical exam and plan: Yes Notes (Text): 10/18/16 15:27 Pt was seen and examined at bedside on 10/17/16 Agree with above note and assessment Pt with Psudo colonic dilatation Rectal tube GI of colonic decompression.
--- NOTE | 2016-10-17 08:52 | CP.CCUPN ---
<Katarzyna Hearn - Last Filed: 10/17/16 17:57> CCU Subjective - Physician Review Subjective (Free Text): 10/07/16 12:24 Patient was seen and examined in no acute distress. No acute events overnight. Packing remains in place. Patient appears more lethargic today at times as compared to her normal baseline. Patient was extubated 10/02/16 with O2 saturation in high 90s on venti mask. The patient has passed a swallow evaluation and eating though minimally. Per nursing, patient has not had a BM in 5-6 days. The patient did not comply with ROS due to somnolence. 10/08/16 12:48 Pt seen and examined though increasingly lethargic on evaluation and as per nursing. Patient desaturated into the 80's in mild distress prompting the need for intubation. A ROS could not be obtained due to patient's lethargy 10/09/16 14:24 Pt seen and examined in no acute distress. Patient intubated 10/08/16 with TLC placed with no events per nursing. A ROS could not be obtained due to patient's lethargy. 10/10/16 21:06 Pt seen and examined in no acute distress. No events overnight per nursing. An ROS could not be obtained due to patient being intubated and sedated. 10/11/16 07:16 Pt seen and examined in no acute distress. Patient hemodynamically stable at this time. Patient being weaned off FiO2. Feeds held in light of abdominal xray findings suggestive of large ileus. An ROS could not be obtained due to patient being intubated and sedated. Sister present bedside. 10/14/16 15:43 Pt seen and examined in no acute distress. Patient alert and able to point and gesture towards fan in need of cool air. Patient able to gesture and wave at family present bedside as well. Patient tolerating CPAP. Patient to have thoracentesis today after consent is obtained. An ROS could not be obtained at this time due to patient being intubated. 10/15/16 15:22 Pt seen and examined in no acute distress. Patient tolerating CPAP trial well. Patient had thoracentesis performed. Tolerated procedure well. Still intubated - No ROS at this time. 10/16/16 13:43 Pt seen and examined in no acute distress. Patient tolerating CPAP. Patient still intubated though quite responsive with palpation. No ROS at this time as patient is intubated. 10/17/16 17:42 Pt seen and examined in no acute distress. Patient tolerating CPAP with pressure support. Patient was extubated this afternoon. Patient instructed not to talk or speak. Patient denied chest pain, palpitations, headaches, subjective fevers or chills at this time. CCU Objective - Vital Signs / Intake & Output Vital Signs (Last 4 hours): Vital Signs Temp Pulse Resp BP Pulse Ox 10/17/16 08:30 65 16 100 10/17/16 08:02 65 16 125/57 L 10/17/16 08:00 97.8 F 65 16 99 10/17/16 07:41 64 17 133/63 100 10/17/16 06:01 64 16 143/64 100 10/17/16 05:00 70 20 140/71 100 Intake and Output (Last 8hrs): Intake & Output 10/16/16 10/17/16 10/17/16 22:59 06:59 14:59 Intake Total 250 100 Output Total 980 770 30 Balance -730 -670 -30 Weight 166 lb 5 oz Intake: Intake, IV Amount 200 100 Right Distal Port 0 Subclavian Right Medial Port 200 100 Subclavian Tube Feeding 0 Other 50 Output: Gastric Amount 150 Stomach 150 Urine 230 270 30 Urethral (Perez) 230 270 30 Stool 600 500 - Physical Exam Head: Positive for: Atraumatic, Normocephalic, Other (ET Tube in place) Pupils: Positive for: PERRL Extroacular Muscles: Positive for: EOMI Conjunctiva: Positive for: Injected Mouth: Positive for: Dry Nose (Internal): Positive for: Other (Nasal packing in place) Neck: Positive for: Normal Range of Motion Respiratory/Chest: Positive for: Clear to Auscultation, Good Air Exchange, Rales. Negative for: Respiratory Distress, Accessory Muscle Use, Wheezes Cardiovascular: Positive for: Normal S1, S2, Irregular Rhythm. Negative for: Regular Rate and Rhythm, Murmurs Abdomen: Positive for: Distention, Normal Bowel Sounds. Negative for: Peritoneal Signs, Rebound Genitourinary/Pelvic Exam: Positive for: Other (perez in place) Upper Extremity: Positive for: Normal Inspection. Negative for: Cyanosis, Edema Lower Extremity: Positive for: Normal Inspection. Negative for: Edema, CALF TENDERNESS Neurological: Positive for: Other (sedated) Skin: Positive for: Warm, Dry Psychiatric: Positive for: Alert - Medications Active Medications: Active Medications Generic Name Dose Route Start Last Admin Trade Name Freq PRN Reason Stop Dose Admin Albuterol/Ipratropium 3 ml 10/15/16 08:00 10/17/16 07:49 Duoneb 3 Mg/0.5 Mg (3 Ml) Ud INH 3 ml RQ4 KAILA Administration Aspirin 81 mg 09/24/16 18:30 10/05/16 09:14 Aspirin Chewable PO 81 mg DAILY KAILA Administration Budesonide 0.5 mg 10/02/16 20:00 10/17/16 07:49 Pulmicort Respules INH 0.5 mg RQ12 KAILA Administration Clopidogrel Bisulfate 75 mg 09/26/16 10:00 10/05/16 09:14 Plavix PO 75 mg DAILY KAILA Administration Diltiazem HCl 60 mg 10/10/16 14:00 10/16/16 21:33 Cardizem GT 60 mg QID KAILA Administration Enoxaparin Sodium 40 mg 09/26/16 13:00 10/05/16 09:14 Lovenox SC 40 mg DAILY KAILA Administration Famotidine 20 mg 10/08/16 10:00 10/16/16 09:57 Pepcid IVP 20 mg DAILY KAILA Administration Doxycycline Hyclate 100 mg/ 100 mls @ 100 mls/hr 10/13/16 09:00 10/16/16 21:28 Sodium Chloride IVPB 100 mls/hr Q12H KAILA Administration Metronidazole 100 mls @ 100 mls/hr 10/13/16 08:00 10/17/16 07:30 Flagyl IVPB 100 mls/hr Q8H KAILA Administration Insulin Human Regular 0 unit 10/09/16 00:01 10/17/16 05:56 Novolin R SC Not Given Q6H [facility] Protocol Lisinopril 20 mg 10/05/16 18:00 10/16/16 17:52 Zestril NG 20 mg BID KAILA Administration Methylprednisolone 20 mg 10/07/16 10:00 10/16/16 09:56 Solu-Medrol IV 20 mg DAILY KAILA Administration Midazolam HCl 2 mg 10/13/16 12:35 10/14/16 06:54 Versed Inj IVP 2 mg Q4H PRN Administration Agitation Polyethylene Glycol 17 gm 10/06/16 10:00 10/15/16 11:19 Miralax PO Not Given DAILY KAILA Rosuvastatin Calcium 10 mg 09/23/16 22:00 10/16/16 21:34 Crestor PO 10 mg HS KAILA Administration - Patient Studies Lab Studies: Microbiology Studies 10/15/16 16:04 Gram Stain - Final Pleural Fluid Body Fluid Culture - Preliminary NO GROWTH AFTER 24 HOURS Lab Studies 10/17/16 10/17/16 10/17/16 Range/Units 06:25 04:59 04:30 WBC 8.5 (4.8-10.8) K/uL RBC 2.95 L (3.80-5.20) Mil/uL Hgb 8.9 L (11.0-16.0) g/dL Hct 27.3 L (34.0-47.0) % MCV 92.3 (81.0-99.0) fL MCH 30.3 (27.0-31.0) pg MCHC 32.8 L (33.0-37.0) g/dL RDW 14.8 H (11.5-14.5) % Plt Count 112 L (130-400) K/uL MPV 10.6 (7.2-11.7) fL Neut % (Auto) 86.5 H (50.0-75.0) % Lymph % (Auto) 7.8 L (20.0-40.0) % [place] % (Auto) 5.5 (0.0-10.0) % Eos % (Auto) 0.0 (0.0-4.0) % Baso % (Auto) 0.2 (0.0-2.0) % Neut # 7.4 H (1.8-7.0) K/uL Lymph # 0.7 L (1.0-4.3) K/uL [place] # 0.5 (0.0-0.8) K/uL Eos # 0.0 (0.0-0.7) K/uL Baso # 0.0 (0.0-0.2) K/uL Puncture Site Rb pCO2 38 (35-45) mm/Hg pO2 133 H (80-100) mm/Hg HCO3 21.7 (21-28) mmol/L ABG pH 7.35 (7.35-7.45) ABG Total CO2 22.2 (22-28) mmol/L ABG O2 Saturation 99.6 H (95-98) % ABG Base Excess -4.2 L (-2.0-3.0) mmol/L ABG Hemoglobin 11.0 L (11.7-17.4) g/dL ABG Carboxyhemoglobin 1.7 H (0.5-1.5) % POC ABG HHb (Measured) 0.4 (0.0-5.0) % ABG Methemoglobin 1.1 (0.0-3.0) % Fish Test Na A-a O2 Difference 176.0 mm/Hg Respiratory Index 1.3 Hgb O2 Saturation 96.8 (95.0-98.0) % Mechanical Rate 16 FiO2 50.0 % Tidal Volume 400 PEEP 5 Sodium 149 H (132-148) mmol/L Potassium 3.0 L (3.6-5.2) mmol/L Chloride 114 H (98-107) mmol/L Carbon Dioxide 22 (22-30) mmol/L Anion Gap 16 (10-20) BUN 47 H (7-17) mg/dL Creatinine 1.8 H (0.7-1.2) MG/DL Est GFR ( Amer) 32 Est GFR (Non-Af Amer) 27 POC Glucose (mg/dL) 115 H (65-110) mg/dL Random Glucose 99 (65-105) mg/dL Calcium 8.0 L (8.6-10.4) mg/dl Phosphorus 3.9 (2.5-4.5) mg/dL Magnesium 1.7 (1.6-2.3) mg/dL Total Bilirubin 0.4 (0.2-1.3) mg/dL AST 25 (14-36) U/L ALT 39 (9-52) U/L Alkaline Phosphatase 45 (38-126) U/L Total Protein 4.3 L (6.3-8.3) g/dL Albumin 2.1 L (3.5-5.0) g/dL Globulin 2.1 L (2.2-3.9) gm/dL Albumin/Globulin Ratio 1.0 (1.0-2.1) 03/23/17 03/22/17 03/22/17 Range/Units 00:00 18:06 12:08 WBC (4.8-10.8) K/uL RBC (3.80-5.20) Mil/uL Hgb (11.0-16.0) g/dL Hct (34.0-47.0) % MCV (81.0-99.0) fL MCH (27.0-31.0) pg MCHC (33.0-37.0) g/dL RDW (11.5-14.5) % Plt Count (130-400) K/uL MPV (7.2-11.7) fL Neut % (Auto) (50.0-75.0) % Lymph % (Auto) (20.0-40.0) % [place] % (Auto) (0.0-10.0) % Eos % (Auto) (0.0-4.0) % Baso % (Auto) (0.0-2.0) % Neut # (1.8-7.0) K/uL Lymph # (1.0-4.3) K/uL [place] # (0.0-0.8) K/uL Eos # (0.0-0.7) K/uL Baso # (0.0-0.2) K/uL Puncture Site pCO2 (35-45) mm/Hg pO2 (80-100) mm/Hg HCO3 (21-28) mmol/L ABG pH (7.35-7.45) ABG Total CO2 (22-28) mmol/L ABG O2 Saturation (95-98) % ABG Base Excess (-2.0-3.0) mmol/L ABG Hemoglobin (11.7-17.4) g/dL ABG Carboxyhemoglobin (0.5-1.5) % POC ABG HHb (Measured) (0.0-5.0) % ABG Methemoglobin (0.0-3.0) % Fish Test A-a O2 Difference mm/Hg Respiratory Index Hgb O2 Saturation (95.0-98.0) % Mechanical Rate FiO2 % Tidal Volume PEEP Sodium (132-148) mmol/L Potassium (3.6-5.2) mmol/L Chloride (98-107) mmol/L Carbon Dioxide (22-30) mmol/L Anion Gap (10-20) BUN (7-17) mg/dL Creatinine (0.7-1.2) MG/DL Est GFR ( Amer) Est GFR (Non-Af Amer) POC Glucose (mg/dL) 136 H 137 H 136 H (65-110) mg/dL Random Glucose (65-105) mg/dL Calcium (8.6-10.4) mg/dl Phosphorus (2.5-4.5) mg/dL Magnesium (1.6-2.3) mg/dL Total Bilirubin (0.2-1.3) mg/dL AST (14-36) U/L ALT (9-52) U/L Alkaline Phosphatase (38-126) U/L Total Protein (6.3-8.3) g/dL Albumin (3.5-5.0) g/dL Globulin (2.2-3.9) gm/dL Albumin/Globulin Ratio (1.0-2.1) Laboratory Results - last 24 hr 10/16/16 10/16/16 10/17/16 12:08 18:06 00:00 WBC RBC Hgb Hct MCV MCH MCHC RDW Plt Count MPV Neut % (Auto) Lymph % (Auto) [place] % (Auto) Eos % (Auto) Baso % (Auto) Neut # Lymph # [place] # Eos # Baso # Puncture Site pCO2 pO2 HCO3 ABG pH ABG Total CO2 ABG O2 Saturation ABG Base Excess ABG Hemoglobin ABG Carboxyhemoglobin POC ABG HHb (Measured) ABG Methemoglobin Fish Test A-a O2 Difference Respiratory Index Hgb O2 Saturation Mechanical Rate FiO2 Tidal Volume PEEP Sodium Potassium Chloride Carbon Dioxide Anion Gap BUN Creatinine Est GFR ( Amer) Est GFR (Non-Af Amer) POC Glucose (mg/dL) 136 H 137 H 136 H Random Glucose Calcium Phosphorus Magnesium Total Bilirubin AST ALT Alkaline Phosphatase Total Protein Albumin Globulin Albumin/Globulin Ratio 10/17/16 10/17/16 10/17/16 04:30 04:59 06:25 WBC 8.5 RBC 2.95 L Hgb 8.9 L Hct 27.3 L MCV 92.3 MCH 30.3 MCHC 32.8 L RDW 14.8 H Plt Count 112 L MPV 10.6 Neut % (Auto) 86.5 H Lymph % (Auto) 7.8 L [place] % (Auto) 5.5 Eos % (Auto) 0.0 Baso % (Auto) 0.2 Neut # 7.4 H Lymph # 0.7 L [place] # 0.5 Eos # 0.0 Baso # 0.0 Puncture Site Rb pCO2 38 pO2 133 H HCO3 21.7 ABG pH 7.35 ABG Total CO2 22.2 ABG O2 Saturation 99.6 H ABG Base Excess -4.2 L ABG Hemoglobin 11.0 L ABG Carboxyhemoglobin 1.7 H POC ABG HHb (Measured) 0.4 ABG Methemoglobin 1.1 Fish Test Na A-a O2 Difference 176.0 Respiratory Index 1.3 Hgb O2 Saturation 96.8 Mechanical Rate 16 FiO2 50.0 Tidal Volume 400 PEEP 5 Sodium 149 H Potassium 3.0 L Chloride 114 H Carbon Dioxide 22 Anion Gap 16 BUN 47 H Creatinine 1.8 H Est GFR ( Amer) 32 Est GFR (Non-Af Amer) 27 POC Glucose (mg/dL) 115 H Random Glucose 99 Calcium 8.0 L Phosphorus 3.9 Magnesium 1.7 Total Bilirubin 0.4 AST 25 ALT 39 Alkaline Phosphatase 45 Total Protein 4.3 L Albumin 2.1 L Globulin 2.1 L Albumin/Globulin Ratio 1.0 Fingerstick Blood Sugar Results: 115 Review of Systems - Review of Systems Review of Systems: refer to subjective Assessment/Plan - Assessment and Plan (Free Text) Assessment: 86-year-old female with PMHx significant for COPD hypertension and CAD, initially presented to ICU with acute respiratory failure and hypercarbic encephalopathy. Patient had a prior episode of epistaxis which has since resolved. Patient desaturated 10/08/16 in mild distress prompting re-intubation. Patient s/p thoracentesis. Patient with 9 cm cecal distension noted on recent CT abdomen imaging 10/15. Clinically patient improved. Extubated 10/17 in afternoon. Plan: Neuro: extubated 10/17 Could not comply with ROS at this time 09/23/16 CT Head- Generalized atrophy. Nonspecific white matter changes. Cardiovascular: Better rate control noted HTN Diltiazem IV switched to OGT QID Plavix 75mg PO daily Lisinopril 20mg NG BID daily Aspirin 81mg po daily Rouvastatin 10mg po HS Pulmonary: s/p thoracentesis- 350 cc of brownish colored fluid removed. F/U pleura studies ( cell count/diff, glucose, LDH, albumin, amylase, cholesterol, total protein), Lactic acid and LDH serum Continue ventilatory support, follow up ABG and reduce FiO2 as tolerated Solumedrol tapered down- 20mg IV daily Budesonide 0.5mg INH Q12, Duoneb Imagin10/17/16- bilateral atelectatic and or infiltrate changes and bilateral effusions - F/U full report 10/16/16- small left pleural effusion, central vasc congestion; tubes and lines in place ( refer to full report). AB10/17/16 pH 7.32, PCO2 40, PO2 122, HCO3 21 ( pre-extubation) 10/15/16 pH 7.39, PCO2 40, PO2 85, HCO3 24.4 ( stable- can likely extubate soon with continued improvement) 10/14/16 pH 7.39, PCO2 42, PO2 97, HCO3 25.5 GI: Abd XRAY- marked distension of suspected right and transverse colon 10/17: Rectal tube drainage 1100 cc of brown-green liquid stool 10/15/16: 9 cm cecal dilation noted without evidence of obstruction. 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 Surgery ( made aware) Will follow. Per GI, hold feeds. Abdominal flat plate per GI 10/11/16 - results report mildly dilated loops of bowel in RUQ w/ nonspecific gas pattern. CT of abd/ pelvis suggested ; however patient had one performed 09/29/16. In light of suspicions of ileus will hold feeds.- F/U with GI recommendations Pepcid 20 mg IV daily Hematology: WBC 8.5 Hgb/Hct stable : 8.9/27.3 Cont to monitor for signs of epistasxis or bleeding Endocrine: Maintain euglycemia HbA1c- 5.9 Insulin Sliding Scale protocol Renal: BUN/Cr: 47/1.8 Hypokalemia- repleted ID: U/A negative, UC negative Blood Cx negative DC Abx 10/03/16 : Perez in place MSK: turn 2 qh to prevent bed sores Palliative Care: Palliative Care Consult Placed- F/U Prophylaxis- Pepcid 20mg IV daily Continue Lovenox Ensure Enlive - three times a day <Germain Quick - Last Filed: 10/17/16 18:37> CCU Objective - Vital Signs / Intake & Output Vital Signs (Last 4 hours): Vital Signs Temp Pulse Resp BP Pulse Ox 10/17/16 18:01 76 20 134/64 100 10/17/16 18:00 77 24 97 10/17/16 17:30 79 28 H 100 10/17/16 17:20 74 27 H 100 10/17/16 17:00 71 26 H 144/69 100 10/17/16 16:53 71 23 128/75 100 10/17/16 16:37 70 21 100 10/17/16 16:30 71 17 100 10/17/16 16:00 97.2 F L 72 22 138/65 100 10/17/16 15:30 70 24 100 10/17/16 15:00 72 23 132/64 100 10/17/16 14:58 73 23 100 Intake and Output (Last 8hrs): Intake & Output 10/17/16 10/17/16 10/17/16 06:59 14:59 22:59 Intake Total 100 680 250 Output Total 770 795 560 Balance -670 -115 -310 Weight 166 lb 5 oz Intake: Intake, IV Amount 100 500 100 Right Distal Port Forearm 0 Right Proximal Port 0 Subclavian Right Distal Port 300 100 Subclavian Right Medial Port 100 200 Subclavian Oral 180 150 Output: Urine 270 795 560 Urethral (Perez) 270 795 560 Stool 500 - Medications Active Medications: Active Medications Generic Name Dose Route Start Last Admin Trade Name Freq PRN Reason Stop Dose Admin Albuterol/Ipratropium 3 ml 10/15/16 08:00 10/17/16 15:51 Duoneb 3 Mg/0.5 Mg (3 Ml) Ud INH 3 ml RQ4 KAILA Administration Aspirin 81 mg 09/24/16 18:30 10/05/16 09:14 Aspirin Chewable PO 81 mg DAILY KAILA Administration Budesonide 0.5 mg 10/02/16 20:00 10/17/16 07:49 Pulmicort Respules INH 0.5 mg RQ12 KAILA Administration Clopidogrel Bisulfate 75 mg 09/26/16 10:00 10/05/16 09:14 Plavix PO 75 mg DAILY KAILA Administration Diltiazem HCl 60 mg 10/10/16 14:00 10/17/16 17:06 Cardizem GT 60 mg QID KAIAL Administration Enoxaparin Sodium 40 mg 09/26/16 13:00 10/05/16 09:14 Lovenox SC 40 mg DAILY KAILA Administration Famotidine 20 mg 10/08/16 10:00 10/17/16 09:34 Pepcid IVP 20 mg DAILY KAILA Administration Heparin Sodium (Porcine) 5,000 units 10/17/16 10:15 10/17/16 10:24 Heparin SC 5,000 units Q12 KIALA Administration Metronidazole 100 mls @ 100 mls/hr 10/13/16 08:00 10/17/16 15:12 Flagyl IVPB 100 mls/hr Q8H KAILA Administration Insulin Human Regular 0 unit 10/09/16 00:01 10/17/16 12:15 Novolin R SC Not Given Q6H [facility] Protocol Lisinopril 20 mg 10/05/16 18:00 10/17/16 17:06 Zestril NG 20 mg BID KAILA Administration Methylprednisolone 20 mg 10/07/16 10:00 10/17/16 09:33 Solu-Medrol IV 20 mg DAILY KAILA Administration Midazolam HCl 2 mg 10/13/16 12:35 10/14/16 06:54 Versed Inj IVP 2 mg Q4H PRN Administration Agitation Polyethylene Glycol 17 gm 10/06/16 10:00 10/15/16 11:19 Miralax PO Not Given DAILY [facility] Rosuvastatin Calcium 10 mg 09/23/16 22:00 10/16/16 21:34 Crestor PO 10 mg HS KAILA Administration - Patient Studies Lab Studies: Microbiology Studies 10/15/16 16:04 Gram Stain - Final Pleural Fluid Body Fluid Culture - Preliminary NO GROWTH AFTER 2 DAYS Lab Studies 10/17/16 10/17/16 10/17/16 Range/Units 18:11 16:55 11:47 WBC (4.8-10.8) K/uL RBC (3.80-5.20) Mil/uL Hgb (11.0-16.0) g/dL Hct (34.0-47.0) % MCV (81.0-99.0) fL MCH (27.0-31.0) pg MCHC (33.0-37.0) g/dL RDW (11.5-14.5) % Plt Count (130-400) K/uL MPV (7.2-11.7) fL Neut % (Auto) (50.0-75.0) % Lymph % (Auto) (20.0-40.0) % [place] % (Auto) (0.0-10.0) % Eos % (Auto) (0.0-4.0) % Baso % (Auto) (0.0-2.0) % Neut # (1.8-7.0) K/uL Lymph # (1.0-4.3) K/uL [place] # (0.0-0.8) K/uL Eos # (0.0-0.7) K/uL Baso # (0.0-0.2) K/uL Neutrophils % (Manual) (50-75) % Band Neutrophils % (0-2) % Lymphocytes % (Manual) (20-40) % Monocytes % (Manual) (0-10) % Platelet Estimate (NORMAL) RBC Morphology Puncture Site Rba pCO2 40 (35-45) mm/Hg pO2 122 H (80-100) mm/Hg HCO3 21.0 (21-28) mmol/L ABG pH 7.32 L (7.35-7.45) ABG Total CO2 21.8 L (22-28) mmol/L ABG O2 Saturation 99.7 H (95-98) % ABG Base Excess -5.1 L (-2.0-3.0) mmol/L ABG Hemoglobin 9.3 L (11.7-17.4) g/dL ABG Carboxyhemoglobin 1.9 H (0.5-1.5) % POC ABG HHb (Measured) 0.3 (0.0-5.0) % ABG Methemoglobin 1.2 (0.0-3.0) % Fish Test Na A-a O2 Difference 113.0 mm/Hg Respiratory Index 0.9 Hgb O2 Saturation 96.6 (95.0-98.0) % Mechanical Rate FiO2 40.0 % Tidal Volume PEEP 5 Pressure Support 12 Sodium (132-148) mmol/L Potassium (3.6-5.2) mmol/L Chloride (98-107) mmol/L Carbon Dioxide (22-30) mmol/L Anion Gap (10-20) BUN (7-17) mg/dL Creatinine (0.7-1.2) MG/DL Est GFR ( Amer) Est GFR (Non-Af Amer) POC Glucose (mg/dL) 186 H 139 H (65-110) mg/dL Random Glucose (65-105) mg/dL Calcium (8.6-10.4) mg/dl Phosphorus (2.5-4.5) mg/dL Magnesium (1.6-2.3) mg/dL Total Bilirubin (0.2-1.3) mg/dL AST (14-36) U/L ALT (9-52) U/L Alkaline Phosphatase (38-126) U/L Total Protein (6.3-8.3) g/dL Albumin (3.5-5.0) g/dL Globulin (2.2-3.9) gm/dL Albumin/Globulin Ratio (1.0-2.1) 10/17/16 10/17/16 10/17/16 Range/Units 06:25 04:59 04:30 WBC 8.5 (4.8-10.8) K/uL RBC 2.95 L (3.80-5.20) Mil/uL Hgb 8.9 L (11.0-16.0) g/dL Hct 27.3 L (34.0-47.0) % MCV 92.3 (81.0-99.0) fL MCH 30.3 (27.0-31.0) pg MCHC 32.8 L (33.0-37.0) g/dL RDW 14.8 H (11.5-14.5) % Plt Count 112 L (130-400) K/uL MPV 10.6 (7.2-11.7) fL Neut % (Auto) 86.5 H (50.0-75.0) % Lymph % (Auto) 7.8 L (20.0-40.0) % [place] % (Auto) 5.5 (0.0-10.0) % Eos % (Auto) 0.0 (0.0-4.0) % Baso % (Auto) 0.2 (0.0-2.0) % Neut # 7.4 H (1.8-7.0) K/uL Lymph # 0.7 L (1.0-4.3) K/uL [place] # 0.5 (0.0-0.8) K/uL Eos # 0.0 (0.0-0.7) K/uL Baso # 0.0 (0.0-0.2) K/uL Neutrophils % (Manual) 87 H (50-75) % Band Neutrophils % 5 H (0-2) % Lymphocytes % (Manual) 5 L (20-40) % Monocytes % (Manual) 3 (0-10) % Platelet Estimate Slightly decreased L (NORMAL) RBC Morphology Normal Puncture Site Rb pCO2 38 (35-45) mm/Hg pO2 133 H (80-100) mm/Hg HCO3 21.7 (21-28) mmol/L ABG pH 7.35 (7.35-7.45) ABG Total CO2 22.2 (22-28) mmol/L ABG O2 Saturation 99.6 H (95-98) % ABG Base Excess -4.2 L (-2.0-3.0) mmol/L ABG Hemoglobin 11.0 L (11.7-17.4) g/dL ABG Carboxyhemoglobin 1.7 H (0.5-1.5) % POC ABG HHb (Measured) 0.4 (0.0-5.0) % ABG Methemoglobin 1.1 (0.0-3.0) % Fish Test Na A-a O2 Difference 176.0 mm/Hg Respiratory Index 1.3 Hgb O2 Saturation 96.8 (95.0-98.0) % Mechanical Rate 16 FiO2 50.0 % Tidal Volume 400 PEEP 5 Pressure Support Sodium 149 H (132-148) mmol/L Potassium 3.0 L (3.6-5.2) mmol/L Chloride 114 H (98-107) mmol/L Carbon Dioxide 22 (22-30) mmol/L Anion Gap 16 (10-20) BUN 47 H (7-17) mg/dL Creatinine 1.8 H (0.7-1.2) MG/DL Est GFR ( Amer) 32 Est GFR (Non-Af Amer) 27 POC Glucose (mg/dL) 115 H (65-110) mg/dL Random Glucose 99 (65-105) mg/dL Calcium 8.0 L (8.6-10.4) mg/dl Phosphorus 3.9 (2.5-4.5) mg/dL Magnesium 1.7 (1.6-2.3) mg/dL Total Bilirubin 0.4 (0.2-1.3) mg/dL AST 25 (14-36) U/L ALT 39 (9-52) U/L Alkaline Phosphatase 45 (38-126) U/L Total Protein 4.3 L (6.3-8.3) g/dL Albumin 2.1 L (3.5-5.0) g/dL Globulin 2.1 L (2.2-3.9) gm/dL Albumin/Globulin Ratio 1.0 (1.0-2.1) 10/17/16 Range/Units 00:00 WBC (4.8-10.8) K/uL RBC (3.80-5.20) Mil/uL Hgb (11.0-16.0) g/dL Hct (34.0-47.0) % MCV (81.0-99.0) fL MCH (27.0-31.0) pg MCHC (33.0-37.0) g/dL RDW (11.5-14.5) % Plt Count (130-400) K/uL MPV (7.2-11.7) fL Neut % (Auto) (50.0-75.0) % Lymph % (Auto) (20.0-40.0) % [place] % (Auto) (0.0-10.0) % Eos % (Auto) (0.0-4.0) % Baso % (Auto) (0.0-2.0) % Neut # (1.8-7.0) K/uL Lymph # (1.0-4.3) K/uL [place] # (0.0-0.8) K/uL Eos # (0.0-0.7) K/uL Baso # (0.0-0.2) K/uL Neutrophils % (Manual) (50-75) % Band Neutrophils % (0-2) % Lymphocytes % (Manual) (20-40) % Monocytes % (Manual) (0-10) % Platelet Estimate (NORMAL) RBC Morphology Puncture Site pCO2 (35-45) mm/Hg pO2 (80-100) mm/Hg HCO3 (21-28) mmol/L ABG pH (7.35-7.45) ABG Total CO2 (22-28) mmol/L ABG O2 Saturation (95-98) % ABG Base Excess (-2.0-3.0) mmol/L ABG Hemoglobin (11.7-17.4) g/dL ABG Carboxyhemoglobin (0.5-1.5) % POC ABG HHb (Measured) (0.0-5.0) % ABG Methemoglobin (0.0-3.0) % Fish Test A-a O2 Difference mm/Hg Respiratory Index Hgb O2 Saturation (95.0-98.0) % Mechanical Rate FiO2 % Tidal Volume PEEP Pressure Support Sodium (132-148) mmol/L Potassium (3.6-5.2) mmol/L Chloride (98-107) mmol/L Carbon Dioxide (22-30) mmol/L Anion Gap (10-20) BUN (7-17) mg/dL Creatinine (0.7-1.2) MG/DL Est GFR ( Amer) Est GFR (Non-Af Amer) POC Glucose (mg/dL) 136 H (65-110) mg/dL Random Glucose (65-105) mg/dL Calcium (8.6-10.4) mg/dl Phosphorus (2.5-4.5) mg/dL Magnesium (1.6-2.3) mg/dL Total Bilirubin (0.2-1.3) mg/dL AST (14-36) U/L ALT (9-52) U/L Alkaline Phosphatase (38-126) U/L Total Protein (6.3-8.3) g/dL Albumin (3.5-5.0) g/dL Globulin (2.2-3.9) gm/dL Albumin/Globulin Ratio (1.0-2.1) Laboratory Results - last 24 hr 10/17/16 10/17/16 10/17/16 00:00 04:30 04:59 WBC RBC Hgb Hct MCV MCH MCHC RDW Plt Count MPV Neut % (Auto) Lymph % (Auto) [place] % (Auto) Eos % (Auto) Baso % (Auto) Neut # Lymph # [place] # Eos # Baso # Neutrophils % (Manual) Band Neutrophils % Lymphocytes % (Manual) Monocytes % (Manual) Platelet Estimate RBC Morphology Puncture Site Rb pCO2 38 pO2 133 H HCO3 21.7 ABG pH 7.35 ABG Total CO2 22.2 ABG O2 Saturation 99.6 H ABG Base Excess -4.2 L ABG Hemoglobin 11.0 L ABG Carboxyhemoglobin 1.7 H POC ABG HHb (Measured) 0.4 ABG Methemoglobin 1.1 Fish Test Na A-a O2 Difference 176.0 Respiratory Index 1.3 Hgb O2 Saturation 96.8 Mechanical Rate 16 FiO2 50.0 Tidal Volume 400 PEEP 5 Pressure Support Sodium Potassium Chloride Carbon Dioxide Anion Gap BUN Creatinine Est GFR ( Amer) Est GFR (Non-Af Amer) POC Glucose (mg/dL) 136 H 115 H Random Glucose Calcium Phosphorus Magnesium Total Bilirubin AST ALT Alkaline Phosphatase Total Protein Albumin Globulin Albumin/Globulin Ratio 10/17/16 10/17/16 10/17/16 06:25 11:47 16:55 WBC 8.5 RBC 2.95 L Hgb 8.9 L Hct 27.3 L MCV 92.3 MCH 30.3 MCHC 32.8 L RDW 14.8 H Plt Count 112 L MPV 10.6 Neut % (Auto) 86.5 H Lymph % (Auto) 7.8 L [place] % (Auto) 5.5 Eos % (Auto) 0.0 Baso % (Auto) 0.2 Neut # 7.4 H Lymph # 0.7 L [place] # 0.5 Eos # 0.0 Baso # 0.0 Neutrophils % (Manual) 87 H Band Neutrophils % 5 H Lymphocytes % (Manual) 5 L Monocytes % (Manual) 3 Platelet Estimate Slightly decreased L RBC Morphology Normal Puncture Site Rba pCO2 40 pO2 122 H HCO3 21.0 ABG pH 7.32 L ABG Total CO2 21.8 L ABG O2 Saturation 99.7 H ABG Base Excess -5.1 L ABG Hemoglobin 9.3 L ABG Carboxyhemoglobin 1.9 H POC ABG HHb (Measured) 0.3 ABG Methemoglobin 1.2 Fish Test Na A-a O2 Difference 113.0 Respiratory Index 0.9 Hgb O2 Saturation 96.6 Mechanical Rate FiO2 40.0 Tidal Volume PEEP 5 Pressure Support 12 Sodium 149 H Potassium 3.0 L Chloride 114 H Carbon Dioxide 22 Anion Gap 16 BUN 47 H Creatinine 1.8 H Est GFR ( Amer) 32 Est GFR (Non-Af Amer) 27 POC Glucose (mg/dL) 139 H Random Glucose 99 Calcium 8.0 L Phosphorus 3.9 Magnesium 1.7 Total Bilirubin 0.4 AST 25 ALT 39 Alkaline Phosphatase 45 Total Protein 4.3 L Albumin 2.1 L Globulin 2.1 L Albumin/Globulin Ratio 1.0 10/17/16 18:11 WBC RBC Hgb Hct MCV MCH MCHC RDW Plt Count MPV Neut % (Auto) Lymph % (Auto) [place] % (Auto) Eos % (Auto) Baso % (Auto) Neut # Lymph # [place] # Eos # Baso # Neutrophils % (Manual) Band Neutrophils % Lymphocytes % (Manual) Monocytes % (Manual) Platelet Estimate RBC Morphology Puncture Site pCO2 pO2 HCO3 ABG pH ABG Total CO2 ABG O2 Saturation ABG Base Excess ABG Hemoglobin ABG Carboxyhemoglobin POC ABG HHb (Measured) ABG Methemoglobin Fish Test A-a O2 Difference Respiratory Index Hgb O2 Saturation Mechanical Rate FiO2 Tidal Volume PEEP Pressure Support Sodium Potassium Chloride Carbon Dioxide Anion Gap BUN Creatinine Est GFR ( Amer) Est GFR (Non-Af Amer) POC Glucose (mg/dL) 186 H Random Glucose Calcium Phosphorus Magnesium Total Bilirubin AST ALT Alkaline Phosphatase Total Protein Albumin Globulin Albumin/Globulin Ratio Assessment/Plan (1) Respiratory failure Current Visit: Yes Status: Chronic Priority: High Attending/Attestation - Attestation I have personally seen and examined this patient.: Yes I have fully participated in the care of the patient.: Yes I have reviewed all pertinent clinical information: Yes Notes (Text): 10/17/16 18:37 I have seen and examined the patient. Medical records, lab studies, and imaging were reviewed by me and a management plan was formulated on multidisciplinary rounds with resident Dr. Hearn. I agree with their above documented assessment and plan. Extubated today (10/17). Critical Care Time 35 minutes. Multi-disciplinary rounds were performed with house staff, nursing, speech therapy, respiratory therapy, pharmacy and nutrition with integrated input from the primary team/attending and other consulting services. The documented time is cumulative and includes review of patient data/exams/labs/chart review and examination of the patient on rounds and throughout the day; time is exclusive of any procedures or teaching time.
[2016-10-17 09:18] LABS: NEUTROPHIL 87 % (50-75); TOTAL CELLS COUNTED 100
[2016-10-17] MEDS: Potassium Chloride 20 mEq 100 ML IVPB SCH ×3 (09:33→13:28)
[2016-10-17] MEDS: MethylPREDNISolone 40 mg Vial IV SCH (09:33)
--- NOTE | 2016-10-17 11:38 | CP.PCM.PN ---
Subjective - Date & Time of Evaluation Date of Evaluation: 10/17/16 Time of Evaluation: 11:30 - Subjective Subjective: Patient seen and examined in the intensive care unit. Remains intubated on ventilatory support tolerating CPAP Status post rectal tube placement Objective - Vital Signs/Intake and Output Vital Signs (last 24 hours): Temp Pulse Resp BP Pulse Ox 97.8 F 65 16 122/55 L 100 10/17/16 08:00 10/17/16 08:30 10/17/16 08:30 10/17/16 10:24 10/17/16 08:30 Intake and Output: 10/17/16 10/17/16 06:59 18:59 Intake Total 250 130 Output Total 885 60 Balance -635 70 - Medications Medications: Current Medications Albuterol/Ipratropium (Duoneb 3 Mg/0.5 Mg (3 Ml) Ud) 3 ml INH RQ4 [facility] Last Admin: 10/17/16 07:49 Dose: 3 ml Aspirin (Aspirin Chewable) 81 mg PO DAILY [facility] Last Admin: 10/05/16 09:14 Dose: 81 mg Budesonide (Pulmicort Respules) 0.5 mg INH RQ12 [facility] Last Admin: 10/17/16 07:49 Dose: 0.5 mg Clopidogrel Bisulfate (Plavix) 75 mg PO DAILY [facility] Last Admin: 10/05/16 09:14 Dose: 75 mg Diltiazem HCl (Cardizem) 60 mg GT QID [facility] Last Admin: 10/17/16 09:34 Dose: 60 mg Enoxaparin Sodium (Lovenox) 40 mg SC DAILY [facility] Last Admin: 10/05/16 09:14 Dose: 40 mg Famotidine (Pepcid) 20 mg IVP DAILY [facility] Last Admin: 10/17/16 09:34 Dose: 20 mg Heparin Sodium (Porcine) (Heparin) 5,000 units SC Q12 [facility] Last Admin: 10/17/16 10:24 Dose: 5,000 units Metronidazole (Flagyl) 100 mls @ 100 mls/hr IVPB Q8H [facility] Last Admin: 10/17/16 07:30 Dose: 100 mls/hr Potassium Chloride (Potassium Chloride 20 Meq/100 Ml) 100 mls @ 50 mls/hr IVPB Q2H [facility] Stop: 10/17/16 14:59 Last Admin: 10/17/16 11:22 Dose: 50 mls/hr Insulin Human Regular (Novolin R) 0 unit SC Q6H [facility] PRN Reason: Protocol Last Admin: 10/17/16 05:56 Dose: Not Given Lisinopril (Zestril) 20 mg NG BID [facility] Last Admin: 10/17/16 09:34 Dose: 20 mg Methylprednisolone (Solu-Medrol) 20 mg IV DAILY [facility] Last Admin: 10/17/16 09:33 Dose: 20 mg Midazolam HCl (Versed Inj) 2 mg IVP Q4H [facility]N PRN Reason: Agitation Last Admin: 10/14/16 06:54 Dose: 2 mg Polyethylene Glycol (Miralax) 17 gm PO DAILY [facility] Last Admin: 10/15/16 11:19 Dose: Not Given Rosuvastatin Calcium (Crestor) 10 mg PO HS [facility] Last Admin: 10/16/16 21:34 Dose: 10 mg - Labs Labs: 10/17/16 06:25 10/17/16 06:25 PT 12.3 SECONDS (9.7-12.2) H 10/06/16 01:34 INR 1.1 10/06/16 01:34 APTT 27 SECONDS (21-34) 10/06/16 01:34 - Head Exam Head Exam: ATRAUMATIC, NORMOCEPHALIC - Eye Exam Eye Exam: Normal appearance - Neck Exam Neck Exam: Normal Inspection - Respiratory Exam Respiratory Exam: Decreased Breath Sounds - Cardiovascular Exam Cardiovascular Exam: Irregular Rhythm - GI/Abdominal Exam GI & Abdominal Exam: Distended, Soft - Extremities Exam Extremities Exam: Pedal Edema Assessment and Plan (1) Acute respiratory failure with hypoxia and hypercarbia Status: Resolved (2) COPD (chronic obstructive pulmonary disease) Status: Chronic (3) Acute [place] Status: Acute (4) Leucocytosis Status: Acute
--- NOTE | 2016-10-17 12:15 | CP.PCM.PN ---
Subjective - Date & Time of Evaluation Date of Evaluation: 10/17/16 Time of Evaluation: 11:00 - Subjective Subjective: F/U distendeed colon Pt is more awake today. No report of RB, melena, hematuria, hemoptysis, chills, SZ, [place], tremor Objective - Vital Signs/Intake and Output Vital Signs (last 24 hours): Temp Pulse Resp BP Pulse Ox 97.8 F 68 23 126/62 100 10/17/16 08:00 10/17/16 11:30 10/17/16 11:30 10/17/16 11:01 10/17/16 11:01 Intake and Output: 10/17/16 10/17/16 06:59 18:59 Intake Total 250 480 Output Total 885 180 Balance -635 300 - Medications Medications: Current Medications Albuterol/Ipratropium (Duoneb 3 Mg/0.5 Mg (3 Ml) Ud) 3 ml INH RQ4 [facility] Last Admin: 10/17/16 11:45 Dose: 3 ml Aspirin (Aspirin Chewable) 81 mg PO DAILY [facility] Last Admin: 10/05/16 09:14 Dose: 81 mg Budesonide (Pulmicort Respules) 0.5 mg INH RQ12 [facility] Last Admin: 10/17/16 07:49 Dose: 0.5 mg Clopidogrel Bisulfate (Plavix) 75 mg PO DAILY [facility] Last Admin: 10/05/16 09:14 Dose: 75 mg Diltiazem HCl (Cardizem) 60 mg GT QID [facility] Last Admin: 10/17/16 09:34 Dose: 60 mg Enoxaparin Sodium (Lovenox) 40 mg SC DAILY [facility] Last Admin: 10/05/16 09:14 Dose: 40 mg Famotidine (Pepcid) 20 mg IVP DAILY [facility] Last Admin: 10/17/16 09:34 Dose: 20 mg Heparin Sodium (Porcine) (Heparin) 5,000 units SC Q12 [facility] Last Admin: 10/17/16 10:24 Dose: 5,000 units Metronidazole (Flagyl) 100 mls @ 100 mls/hr IVPB Q8H [facility] Last Admin: 10/17/16 07:30 Dose: 100 mls/hr Potassium Chloride (Potassium Chloride 20 Meq/100 Ml) 100 mls @ 50 mls/hr IVPB Q2H [facility] Stop: 10/17/16 14:59 Last Admin: 03/23/17 11:22 Dose: 50 mls/hr Insulin Human Regular (Novolin R) 0 unit SC Q6H [facility] PRN Reason: Protocol Last Admin: 10/17/16 05:56 Dose: Not Given Lisinopril (Zestril) 20 mg NG BID [facility] Last Admin: 10/17/16 09:34 Dose: 20 mg Methylprednisolone (Solu-Medrol) 20 mg IV DAILY [facility] Last Admin: 10/17/16 09:33 Dose: 20 mg Midazolam HCl (Versed Inj) 2 mg IVP Q4H [facility]N PRN Reason: Agitation Last Admin: 10/14/16 06:54 Dose: 2 mg Polyethylene Glycol (Miralax) 17 gm PO DAILY [facility] Last Admin: 10/15/16 11:19 Dose: Not Given Rosuvastatin Calcium (Crestor) 10 mg PO HS [facility] Last Admin: 10/16/16 21:34 Dose: 10 mg - Labs Labs: 10/17/16 06:25 10/17/16 06:25 PT 12.3 SECONDS (9.7-12.2) H 10/06/16 01:34 INR 1.1 10/06/16 01:34 APTT 27 SECONDS (21-34) 10/06/16 01:34 - Constitutional Appears: Chronically Ill - Respiratory Exam Respiratory Exam: Rales, Rhonchi - Cardiovascular Exam Cardiovascular Exam: RRR - GI/Abdominal Exam GI & Abdominal Exam: Distended, Normal Bowel Sounds. absent: Tenderness Additional comments: softer - Extremities Exam Extremities Exam: Pedal Edema - Neurological Exam Neurological Exam: Awake Assessment and Plan (1) Respiratory failure Status: Chronic (2) Abdominal distension Assessment & Plan: Colon ileus. Rectal tube. Consider colonoscopy for decompression. Check KUB Status: Acute (3) Acute [place] Status: Acute (4) Atrial fibrillation Status: Acute (5) Dysphagia Status: Acute (6) Hypernatremia Status: Acute (7) Leucocytosis Status: Acute (8) Anemia Status: Acute
--- NOTE | 2016-10-17 13:26 | RAD ---
Chest and abdomen dated 10/17/2016. History: Colonic distention. Single portable AP view of the chest and portable AP supine view of the abdomen performed. Note that the abdomen study is limited due to exclusion of the right lateral aspect of the abdomen. Findings: In situ ETT, the tip of which lies approximately 6.6 cm above vicente. In a NGT is present, the tip of which overlies the stomach. Right subclavian central venous line with tip in the SVC unchanged. Cardiomegaly. Bilateral atelectatic and or infiltrate changes and bilateral effusions. No gross free intraperitoneal air seen under the diaphragmatic surfaces. Re- demonstrated are not distended loops of bowel felt to represent the cecum, ascending and transverse colon. Calcified uterine fibroid again noted Impression: Support lines and tubes as above. Cardiomegaly. Bibasilar opacities likely representing atelectasis and or infiltrates and effusions. Marked distention of of what is felt to represent the right and transverse colon.
--- NOTE | 2016-10-17 13:58 | CP.PCM.PN ---
Subjective - Date & Time of Evaluation Date of Evaluation: 10/17/16 Time of Evaluation: 13:56 - Subjective Subjective: intubated on vent.on cpap. Objective - Vital Signs/Intake and Output Vital Signs (last 24 hours): Temp Pulse Resp BP Pulse Ox 97.6 F 71 23 144/75 100 10/17/16 12:00 10/17/16 13:30 10/17/16 13:30 10/17/16 13:00 10/17/16 13:30 Intake and Output: 10/17/16 10/17/16 06:59 18:59 Intake Total 250 580 Output Total 885 380 Balance -635 200 - Medications Medications: Current Medications Albuterol/Ipratropium (Duoneb 3 Mg/0.5 Mg (3 Ml) Ud) 3 ml INH RQ4 [facility] Last Admin: 10/17/16 11:45 Dose: 3 ml Aspirin (Aspirin Chewable) 81 mg PO DAILY [facility] Last Admin: 10/05/16 09:14 Dose: 81 mg Budesonide (Pulmicort Respules) 0.5 mg INH RQ12 [facility] Last Admin: 10/17/16 07:49 Dose: 0.5 mg Clopidogrel Bisulfate (Plavix) 75 mg PO DAILY [facility] Last Admin: 10/05/16 09:14 Dose: 75 mg Diltiazem HCl (Cardizem) 60 mg GT QID [facility] Last Admin: 10/17/16 09:34 Dose: 60 mg Enoxaparin Sodium (Lovenox) 40 mg SC DAILY [facility] Last Admin: 10/05/16 09:14 Dose: 40 mg Famotidine (Pepcid) 20 mg IVP DAILY [facility] Last Admin: 10/17/16 09:34 Dose: 20 mg Heparin Sodium (Porcine) (Heparin) 5,000 units SC Q12 [facility] Last Admin: 10/17/16 10:24 Dose: 5,000 units Metronidazole (Flagyl) 100 mls @ 100 mls/hr IVPB Q8H [facility] Last Admin: 10/17/16 07:30 Dose: 100 mls/hr Potassium Chloride (Potassium Chloride 20 Meq/100 Ml) 100 mls @ 50 mls/hr IVPB Q2H [facility] Stop: 10/17/16 14:59 Last Admin: 10/17/16 13:28 Dose: 50 mls/hr Insulin Human Regular (Novolin R) 0 unit SC Q6H [facility] PRN Reason: Protocol Last Admin: 10/17/16 12:15 Dose: Not Given Lisinopril (Zestril) 20 mg NG BID [facility] Last Admin: 10/17/16 09:34 Dose: 20 mg Methylprednisolone (Solu-Medrol) 20 mg IV DAILY [facility] Last Admin: 10/17/16 09:33 Dose: 20 mg Midazolam HCl (Versed Inj) 2 mg IVP Q4H PRN PRN Reason: Agitation Last Admin: 10/14/16 06:54 Dose: 2 mg Polyethylene Glycol (Miralax) 17 gm PO DAILY [facility] Last Admin: 10/15/16 11:19 Dose: Not Given Rosuvastatin Calcium (Crestor) 10 mg PO HS [facility] Last Admin: 10/16/16 21:34 Dose: 10 mg - Labs Labs: 10/17/16 06:25 10/17/16 06:25 PT 12.3 SECONDS (9.7-12.2) H 10/06/16 01:34 INR 1.1 10/06/16 01:34 APTT 27 SECONDS (21-34) 10/06/16 01:34 - Constitutional Appears: No Acute Distress - Head Exam Head Exam: NORMOCEPHALIC - Eye Exam Eye Exam: Normal appearance - ENT Exam ENT Exam: Mucous Membranes Moist - Neck Exam Neck Exam: Normal Inspection - Respiratory Exam Respiratory Exam: Clear to Ausculation Bilateral - Cardiovascular Exam Cardiovascular Exam: REGULAR RHYTHM, Murmur - GI/Abdominal Exam GI & Abdominal Exam: Distended Assessment and Plan - Assessment and Plan (Free Text) Assessment: hopefully wean her off.low k being replaced.paro a.fib.nsr this time.abdomen is softer.ct same rx.
[2016-10-17 17:04] LABS: ARTERIAL BLOOD HGB O2 SAT 96.6 % (95.0-98.0); ATERIAL BLOOD GAS PEEP 5; CARBOXYHEMOGLOBIN 1.9 % (0.5-1.5); DRAW SITE RBA; HHB 0.3 % (0.0-5.0); METHEMOGLOBIN 1.2 % (0.0-3.0)
[2016-10-18] MEDS: Albuterol-Ipratrop 3 mg / 0.5 (3 ml) UD INH SCH ×6 (03:02→23:41)
[2016-10-18 06:43] LABS: BASO % 0.1 % (0.0-2.0); HEMATOCRIT 28.9 % (34.0-47.0); LYMPH # 0.7 K/uL (1.0-4.3); LYMPH % 7.2 % (20.0-40.0); MEAN CELL VOLUME 91.8 fL (81.0-99.0); MEAN CORPUSCULAR HEMOGLOBIN 30.4 pg (27.0-31.0); MEAN CORPUSCULAR HGB CONC 33.1 g/dL (33.0-37.0); MEAN PLATELET VOLUME 10.1 fL (7.2-11.7); MONO # 0.5 K/uL (0.0-0.8); MONO % 5.1 % (0.0-10.0); NRBC % 0.1 % (0.0-2.0); PLATELET COUNT 132 K/uL (130-400); WHITE BLOOD COUNT 9.4 K/uL (4.8-10.8)
[2016-10-18 06:44] LABS: POTASSIUM 2.8 mmol/L (3.6-5.2)
[2016-10-18 06:46] LABS: ALB/GLOB RATIO 1.1 (1.0-2.1); BILIRUBIN,TOTAL 0.4 mg/dL (0.2-1.3); TOTAL PROTEIN 4.7 g/dL (6.3-8.3)
[2016-10-18 06:47] LABS: CALCIUM 8.1 mg/dl (8.6-10.4); MAGNESIUM 1.7 mg/dL (1.6-2.3); PHOSPHOROUS 4.1 mg/dL (2.5-4.5)
[2016-10-18] MEDS: (Novolin R) Insulin Human Regular 100 units/ml vial SC SCH ×4 (07:15→17:47)
[2016-10-18] MEDS: metroNIDAZOLE IV 500 mg/100 ml 100 ML IVPB SCH (07:29)
[2016-10-18] MEDS: Budesonide 0.5 mg/2 ml Inhal Susp UD INH SCH ×2 (07:32→19:15)
--- NOTE | 2016-10-18 07:51 | CP.PCM.PN ---
<Scott Wiggins - Last Filed: 10/18/16 07:39> Subjective - Date & Time of Evaluation Date of Evaluation: 10/18/16 Time of Evaluation: 07:20 - Subjective Subjective: General Surgery Pt S&E, NAEO. Extubated yesterday afternoon. Pt has no complaints. Objective - Vital Signs/Intake and Output Vital Signs (last 24 hours): Temp Pulse Resp BP Pulse Ox 97.5 F L 70 22 146/70 90 L 10/18/16 04:00 10/18/16 06:00 10/18/16 06:00 10/18/16 06:00 10/18/16 05:30 Intake and Output: 10/18/16 10/18/16 06:59 18:59 Intake Total 550 Output Total 1240 Balance -690 - Medications Medications: Current Medications Albuterol/Ipratropium (Duoneb 3 Mg/0.5 Mg (3 Ml) Ud) 3 ml INH RQ4 [facility] Last Admin: 10/18/16 07:32 Dose: 3 ml Aspirin (Aspirin Chewable) 81 mg PO DAILY [facility] Last Admin: 10/05/16 09:14 Dose: 81 mg Budesonide (Pulmicort Respules) 0.5 mg INH RQ12 [facility] Last Admin: 10/18/16 07:32 Dose: 0.5 mg Clopidogrel Bisulfate (Plavix) 75 mg PO DAILY [facility] Last Admin: 10/05/16 09:14 Dose: 75 mg Diltiazem HCl (Cardizem) 60 mg GT QID [facility] Last Admin: 10/17/16 21:44 Dose: 60 mg Enoxaparin Sodium (Lovenox) 40 mg SC DAILY [facility] Last Admin: 10/05/16 09:14 Dose: 40 mg Famotidine (Pepcid) 20 mg IVP DAILY [facility] Last Admin: 10/17/16 09:34 Dose: 20 mg Heparin Sodium (Porcine) (Heparin) 5,000 units SC Q12 [facility] Last Admin: 10/17/16 21:44 Dose: 5,000 units Metronidazole (Flagyl) 100 mls @ 100 mls/hr IVPB Q8H [facility] Last Admin: 10/18/16 07:29 Dose: 100 mls/hr Insulin Human Regular (Novolin R) 0 unit SC Q6H [facility] PRN Reason: Protocol Last Admin: 10/18/16 07:15 Dose: Not Given Lisinopril (Zestril) 20 mg NG BID [facility] Last Admin: 10/17/16 17:06 Dose: 20 mg Methylprednisolone (Solu-Medrol) 20 mg IV DAILY [facility] Last Admin: 10/17/16 09:33 Dose: 20 mg Midazolam HCl (Versed Inj) 2 mg IVP Q4H PRN PRN Reason: Agitation Last Admin: 10/14/16 06:54 Dose: 2 mg Polyethylene Glycol (Miralax) 17 gm PO DAILY [facility] Last Admin: 10/15/16 11:19 Dose: Not Given Rosuvastatin Calcium (Crestor) 10 mg PO HS [facility] Last Admin: 10/17/16 21:44 Dose: 10 mg - Labs Labs: 10/18/16 06:00 10/18/16 06:00 PT 12.3 SECONDS (9.7-12.2) H 10/06/16 01:34 INR 1.1 10/06/16 01:34 APTT 28 SECONDS (21-34) 10/18/16 06:00 - Constitutional Appears: Non-toxic, No Acute Distress - Head Exam Head Exam: ATRAUMATIC, NORMOCEPHALIC - Eye Exam Eye Exam: EOMI. absent: Scleral icterus - Respiratory Exam Respiratory Exam: NORMAL BREATHING PATTERN. absent: Respiratory Distress - GI/Abdominal Exam GI & Abdominal Exam: Distended, Soft. absent: Guarding, Rigid, Tenderness - Rectal Exam Additional comments: rectal tube draining green stool - Neurological Exam Neurological Exam: Alert, Awake - Skin Skin Exam: Dry, Warm Assessment and Plan - Assessment and Plan (Free Text) Assessment: 86F with colonic ileus Plan: -Continue rectal tube for colonic decompression -Electrolyte repletion -D/W Dr. Tony Wiggins PGY3 <Jai Jimenez - Last Filed: 10/18/16 15:31> Objective - Vital Signs/Intake and Output Vital Signs (last 24 hours): Temp Pulse Resp BP Pulse Ox 97.5 F L 84 29 H 122/74 96 10/18/16 12:00 10/18/16 14:01 10/18/16 14:01 10/18/16 14:01 10/18/16 14:01 Intake and Output: 10/18/16 10/18/16 06:59 18:59 Intake Total 550 700 Output Total 1240 535 Balance -690 165 - Medications Medications: Current Medications Albuterol/Ipratropium (Duoneb 3 Mg/0.5 Mg (3 Ml) Ud) 3 ml INH RQ4 [facility] Last Admin: 10/18/16 13:27 Dose: Not Given Aspirin (Aspirin Chewable) 81 mg PO DAILY [facility] Last Admin: 10/18/16 11:41 Dose: 81 mg Budesonide (Pulmicort Respules) 0.5 mg INH RQ12 [facility] Last Admin: 10/18/16 07:32 Dose: 0.5 mg Clopidogrel Bisulfate (Plavix) 75 mg PO DAILY [facility] Last Admin: 10/18/16 11:42 Dose: 75 mg Diltiazem HCl (Cardizem) 60 mg GT QID [facility] Last Admin: 10/18/16 13:11 Dose: 60 mg Famotidine (Pepcid) 20 mg IVP DAILY [facility] Last Admin: 10/18/16 10:40 Dose: 20 mg Heparin Sodium (Porcine) (Heparin) 5,000 units SC Q12 [facility] Last Admin: 10/18/16 11:41 Dose: 5,000 units Sodium Chloride (Sodium Chloride 0.9%) 1,000 mls @ 60 mls/hr IV .[id number] [facility] Last Admin: 10/18/16 11:40 Dose: 60 mls/hr Insulin Human Regular (Novolin R) 0 unit SC Q6H [facility] PRN Reason: Protocol Last Admin: 10/18/16 11:43 Dose: 2 unit Lisinopril (Zestril) 20 mg NG BID [facility] Last Admin: 10/18/16 10:41 Dose: 20 mg Midazolam HCl (Versed Inj) 2 mg IVP Q4H PRN PRN Reason: Agitation Last Admin: 10/14/16 06:54 Dose: 2 mg Polyethylene Glycol (Miralax) 17 gm PO DAILY [facility] Last Admin: 10/15/16 11:19 Dose: Not Given Rosuvastatin Calcium (Crestor) 10 mg PO HS [facility] Last Admin: 10/17/16 21:44 Dose: 10 mg Tiotropium [place] (Spiriva) 18 mcg INH RQ24 [facility] - Labs Labs: 10/18/16 06:00 10/18/16 06:00 PT 12.3 SECONDS (9.7-12.2) H 10/06/16 01:34 INR 1.1 10/06/16 01:34 APTT 28 SECONDS (21-34) 10/18/16 06:00 Attending/Attestation - Attestation I have personally seen and examined this patient.: Yes I have fully participated in the care of the patient.: Yes I have reviewed all pertinent clinical information, including history, physical exam and plan: Yes Notes (Text): 10/18/16 15:30 Pt was seen and examined at bedside on 10/18/16 Agree with above note and assessment Rectal tube Neostigmine IV Plan d.w ICU attending C/w current mx
[2016-10-18 08:12] LABS: NEUTROPHIL 79 % (50-75); TOTAL CELLS COUNTED 100
[2016-10-18] MEDS ORDERED: Potassium Chloride 20 mEq/15 ml LIQ UD PO ONE (09:15)
[2016-10-18] MEDS: Potassium Chloride 20 mEq 100 ML IVPB SCH ×2 (09:30→11:42)
--- NOTE | 2016-10-18 09:57 | CP.PCM.PN ---
Subjective - Date & Time of Evaluation Date of Evaluation: 10/18/16 Time of Evaluation: 09:40 - Subjective Subjective: Patient seen and examined in the intensive care unit. Extubated yesterday and no respiratory distress rectal tube for colonic decompression Afebrile Objective - Vital Signs/Intake and Output Vital Signs (last 24 hours): Temp Pulse Resp BP Pulse Ox 97.5 F L 74 15 148/70 96 10/18/16 04:00 10/18/16 07:01 10/18/16 07:01 10/18/16 07:01 10/18/16 07:01 Intake and Output: 10/18/16 10/18/16 06:59 18:59 Intake Total 550 100 Output Total 1240 245 Balance -690 -145 - Medications Medications: Current Medications Albuterol/Ipratropium (Duoneb 3 Mg/0.5 Mg (3 Ml) Ud) 3 ml INH RQ4 [facility] Last Admin: 10/18/16 07:32 Dose: 3 ml Aspirin (Aspirin Chewable) 81 mg PO DAILY [facility] Last Admin: 10/05/16 09:14 Dose: 81 mg Budesonide (Pulmicort Respules) 0.5 mg INH RQ12 [facility] Last Admin: 10/18/16 07:32 Dose: 0.5 mg Clopidogrel Bisulfate (Plavix) 75 mg PO DAILY [facility] Last Admin: 10/05/16 09:14 Dose: 75 mg Diltiazem HCl (Cardizem) 60 mg GT QID [facility] Last Admin: 10/17/16 21:44 Dose: 60 mg Enoxaparin Sodium (Lovenox) 40 mg SC DAILY [facility] Last Admin: 10/05/16 09:14 Dose: 40 mg Famotidine (Pepcid) 20 mg IVP DAILY [facility] Last Admin: 10/17/16 09:34 Dose: 20 mg Heparin Sodium (Porcine) (Heparin) 5,000 units SC Q12 [facility] Last Admin: 10/17/16 21:44 Dose: 5,000 units Potassium Chloride (Potassium Chloride 20 Meq/100 Ml) 100 mls @ 50 mls/hr IVPB Q2 [facility] Stop: 10/18/16 13:59 Insulin Human Regular (Novolin R) 0 unit SC Q6H [facility] PRN Reason: Protocol Last Admin: 10/18/16 07:15 Dose: Not Given Lisinopril (Zestril) 20 mg NG BID [facility] Last Admin: 10/17/16 17:06 Dose: 20 mg Methylprednisolone (Solu-Medrol) 20 mg IV DAILY [facility] Last Admin: 10/17/16 09:33 Dose: 20 mg Midazolam HCl (Versed Inj) 2 mg IVP Q4H PRN PRN Reason: Agitation Last Admin: 10/14/16 06:54 Dose: 2 mg Polyethylene Glycol (Miralax) 17 gm PO DAILY [facility] Last Admin: 10/15/16 11:19 Dose: Not Given Rosuvastatin Calcium (Crestor) 10 mg PO HS [facility] Last Admin: 10/17/16 21:44 Dose: 10 mg - Labs Labs: 10/18/16 06:00 10/18/16 06:00 PT 12.3 SECONDS (9.7-12.2) H 10/06/16 01:34 INR 1.1 10/06/16 01:34 APTT 28 SECONDS (21-34) 10/18/16 06:00 - Head Exam Head Exam: ATRAUMATIC, NORMOCEPHALIC - Eye Exam Eye Exam: Normal appearance - ENT Exam ENT Exam: Mucous Membranes Moist - Neck Exam Neck Exam: Normal Inspection - Respiratory Exam Respiratory Exam: Decreased Breath Sounds - GI/Abdominal Exam GI & Abdominal Exam: Distended, Soft - Extremities Exam Extremities Exam: Pedal Edema Assessment and Plan (1) COPD (chronic obstructive pulmonary disease) Assessment & Plan: Extubated yesterday, in no respiratory distress periods of confusion and agitation Discontinue inhaled steroids Taper IV steroids Continue nebulizer treatment Status: Chronic (2) Acute [place] Status: Acute (3) Leucocytosis Status: Acute
--- NOTE | 2016-10-18 10:10 | RAD ---
HISTORY: intubated COMPARISON: 10/17/2016 FINDINGS: LUNGS: Hazy opacity in the lung bases. Increased pulmonary vascular congestion. PLEURA: Lateral small to moderate-sized pleural effusions.Biapical pleural parenchymal thickening noted. CARDIOVASCULAR: Stable cardiomediastinal silhouette. OSSEOUS STRUCTURES: The osseous structures demonstrate degenerative changes. VISUALIZED UPPER ABDOMEN: Upper abdomen is suboptimally evaluated. OTHER FINDINGS: Right PICC with the distal tip of the catheter overlying the projection of the SVC/right atrial junction. Interval removal of ET tube. IMPRESSION: Hazy opacity in the lung bases. Increased pulmonary vascular congestion.
[2016-10-18] MEDS: MethylPREDNISolone 40 mg Vial IV SCH (10:39)
[2016-10-18] MEDS: Enoxaparin 40 mg Syringe SC SCH (11:36)
[2016-10-18] MEDS: Sodium Chloride 0.9% 1,000 ML IV SCH (11:40)
[2016-10-18 12:07] LABS: ARTERIAL BLOOD HGB O2 SAT 93.9 % (95.0-98.0); CARBOXYHEMOGLOBIN 2.3 % (0.5-1.5); DRAW SITE RB; HHB 2.8 % (0.0-5.0)
--- NOTE | 2016-10-18 12:19 | CP.PCM.PN ---
Subjective - Date & Time of Evaluation Date of Evaluation: 10/18/16 Time of Evaluation: 12:17 - Subjective Subjective: extubated.periods of coonfusion. Objective - Vital Signs/Intake and Output Vital Signs (last 24 hours): Temp Pulse Resp BP Pulse Ox 97.5 F L 80 30 H 142/82 94 L 10/18/16 04:00 10/18/16 11:02 10/18/16 11:02 10/18/16 11:02 10/18/16 11:02 Intake and Output: 10/18/16 10/18/16 06:59 18:59 Intake Total 550 420 Output Total 1240 375 Balance -690 45 - Medications Medications: Current Medications Albuterol/Ipratropium (Duoneb 3 Mg/0.5 Mg (3 Ml) Ud) 3 ml INH RQ4 [facility] Last Admin: 10/18/16 07:32 Dose: 3 ml Aspirin (Aspirin Chewable) 81 mg PO DAILY [facility] Last Admin: 10/18/16 11:41 Dose: 81 mg Budesonide (Pulmicort Respules) 0.5 mg INH RQ12 [facility] Last Admin: 10/18/16 07:32 Dose: 0.5 mg Clopidogrel Bisulfate (Plavix) 75 mg PO DAILY [facility] Last Admin: 10/18/16 11:42 Dose: 75 mg Diltiazem HCl (Cardizem) 60 mg GT QID [facility] Last Admin: 10/18/16 10:41 Dose: 60 mg Famotidine (Pepcid) 20 mg IVP DAILY [facility] Last Admin: 10/18/16 10:40 Dose: 20 mg Heparin Sodium (Porcine) (Heparin) 5,000 units SC Q12 [facility] Last Admin: 10/18/16 11:41 Dose: 5,000 units Potassium Chloride (Potassium Chloride 20 Meq/100 Ml) 100 mls @ 50 mls/hr IVPB Q2 [facility] Stop: 10/18/16 13:59 Last Admin: 10/18/16 11:42 Dose: 50 mls/hr Sodium Chloride (Sodium Chloride 0.9%) 1,000 mls @ 60 mls/hr IV .[id number] [facility] Last Admin: 10/18/16 11:40 Dose: 60 mls/hr Insulin Human Regular (Novolin R) 0 unit SC Q6H [facility] PRN Reason: Protocol Last Admin: 10/18/16 11:43 Dose: 2 unit Lisinopril (Zestril) 20 mg NG BID [facility] Last Admin: 10/18/16 10:41 Dose: 20 mg Midazolam HCl (Versed Inj) 2 mg IVP Q4H PRN PRN Reason: Agitation Last Admin: 10/14/16 06:54 Dose: 2 mg Polyethylene Glycol (Miralax) 17 gm PO DAILY [facility] Last Admin: 10/15/16 11:19 Dose: Not Given Rosuvastatin Calcium (Crestor) 10 mg PO HS [facility] Last Admin: 10/17/16 21:44 Dose: 10 mg Tiotropium [place] (Spiriva) 18 mcg INH RQ24 [facility] - Labs Labs: 10/18/16 06:00 10/18/16 06:00 PT 12.3 SECONDS (9.7-12.2) H 10/06/16 01:34 INR 1.1 10/06/16 01:34 APTT 28 SECONDS (21-34) 10/18/16 06:00 - Constitutional Appears: No Acute Distress - Head Exam Head Exam: NORMOCEPHALIC - Eye Exam Eye Exam: Normal appearance - Respiratory Exam Respiratory Exam: Clear to Ausculation Bilateral - Cardiovascular Exam Cardiovascular Exam: REGULAR RHYTHM, Murmur - GI/Abdominal Exam GI & Abdominal Exam: Soft - Extremities Exam Extremities Exam: Pedal Edema - Neurological Exam Neurological Exam: Alert Assessment and Plan - Assessment and Plan (Free Text) Assessment: copd,pneumonia,getting better. transfer to [facility] being replaced.
--- NOTE | 2016-10-18 12:30 | RAD ---
HISTORY: comparison, colonic ileus/pseudo-obstruction COMPARISON: No prior. FINDINGS: BOWEL: Air-filled loops of bowel noted. Underlying obstruction versus ileus cannot be excluded. BONES: Degenerative changes involving the bones. OTHER FINDINGS: Stable calcification in the right hemipelvis could be calcified fibroid. IMPRESSION: Air-filled loops of bowel. Underlying obstruction versus ileus cannot be excluded. CT recommended.
[2016-10-18] MEDS ORDERED: Neostigmine Methylsulfate 3mg/3ml Syringe IV ONE (13:15)
--- NOTE | 2016-10-18 14:16 | VASCLAB ---
PROCEDURE: Lower Extremity Venous Duplex Exam. HISTORY: Leg swelling, rule out dvt PRIORS: None. TECHNIQUE: Bilateral common femoral, femoral, popliteal and posterior tibial, peroneal and great saphenous veins were evaluated. Flow was assessed with color Doppler, compressibility, assessment of phasic flow and augmentation response. Report prepared by Manuelito Paige, NEIL, RVT FINDINGS: RIGHT: 1. Common Femoral Vein: 1.1. Compressibility - Fully compressible: Thrombus - None : Flow - Phasic: Augmentation -Normal: Reflux - None. 2. Femoral Vein: 2.1. Compressibility - Fully compressible: Thrombus - None : Flow - Phasic: Augmentation -Normal: Reflux - None. 3. Popliteal Vein: 3.1. Compressibility - Fully compressible: Thrombus - None : Flow - Phasic: Augmentation -Normal: Reflux - None. 4. Posterior Tibial Vein: 4.1. Compressibility - Fully compressible: Thrombus - None: Flow - Phasic: Augmentation -Normal: Reflux - None. 5. Peroneal Vein: 5.1. Compressibility - Fully compressible: Thrombus - None: Flow - Phasic: Augmentation -Normal: Reflux - None. 6. Great Saphenous Vein: 6.1. Compressibility - Fully compressible: Thrombus - None: Flow - Phasic: Augmentation - Normal: Reflux - None. LEFT: 1. Common Femoral Vein: 1.1. Compressibility - Fully compressible: Thrombus - None: Flow - Phasic: Augmentation -Normal: Reflux - None. 2. Femoral Vein: 2.1. Compressibility - Fully compressible: Thrombus - None: Flow - Phasic: Augmentation -Normal: Reflux - None. 3. Popliteal Vein: 3.1. Compressibility - Fully compressible: Thrombus - None : Flow - Phasic: Augmentation -Normal: Reflux - None. 4. Posterior Tibial Vein: 4.1. Compressibility - Fully compressible: Thrombus - None: Flow - Phasic: Augmentation -Normal: Reflux - None. 5. Peroneal Vein: 5.1. Compressibility - Fully compressible: Thrombus - None: Flow - Phasic: Augmentation -Normal: Reflux - None. 6. Great Saphenous Vein: 6.1. Compressibility - Fully compressible: Thrombus - None: Flow - Phasic: Augmentation - Normal: Reflux - None. OTHER FINDINGS: Technically difficult study due to severe swelling. IMPRESSION: Right: No evidence of deep or superficial vein thrombosis of the right lower extremity. Normal valve function noted of the right side. Left: No evidence of deep or superficial vein thrombosis of the left lower extremity. Normal valve function noted of the left side.
--- NOTE | 2016-10-18 16:02 | CP.PCM.PN ---
Subjective - Date & Time of Evaluation Date of Evaluation: 10/18/16 Time of Evaluation: 15:20 - Subjective Subjective: F/U abdominal distention. Reports better, BMs and softer abdomen. No report of RB, melena, CP, fever, NEWMAN, hematuria, hemoptysis, SZ, tremor Objective - Vital Signs/Intake and Output Vital Signs (last 24 hours): Temp Pulse Resp BP Pulse Ox 97.5 F L 76 28 H 126/75 94 L 10/18/16 12:00 10/18/16 15:30 10/18/16 15:30 10/18/16 15:01 10/18/16 15:30 Intake and Output: 10/18/16 10/18/16 06:59 18:59 Intake Total 550 810 Output Total 1240 575 Balance -690 235 - Medications Medications: Current Medications Albuterol/Ipratropium (Duoneb 3 Mg/0.5 Mg (3 Ml) Ud) 3 ml INH RQ4 [facility] [place] Last Admin: 10/18/16 13:27 Dose: Not Given Aspirin (Aspirin Chewable) 81 mg PO DAILY [facility] [place] Last Admin: 10/18/16 11:41 Dose: 81 mg Budesonide (Pulmicort Respules) 0.5 mg INH RQ12 [facility] [place] Last Admin: 10/18/16 07:32 Dose: 0.5 mg Clopidogrel Bisulfate (Plavix) 75 mg PO DAILY [facility] [place] Last Admin: 10/18/16 11:42 Dose: 75 mg Diltiazem HCl (Cardizem) 60 mg GT QID [facility] [place] Last Admin: 10/18/16 13:11 Dose: 60 mg Famotidine (Pepcid) 20 mg IVP DAILY [facility] [place] Last Admin: 10/18/16 10:40 Dose: 20 mg Heparin Sodium (Porcine) (Heparin) 5,000 units SC Q12 [facility] [place] Last Admin: 10/18/16 11:41 Dose: 5,000 units Sodium Chloride (Sodium Chloride 0.9%) 1,000 mls @ 60 mls/hr IV .[id number] [facility] [place] Last Admin: 10/18/16 11:40 Dose: 60 mls/hr Insulin Human Regular (Novolin R) 0 unit SC Q6H [facility] [place] PRN Reason: Protocol Last Admin: 10/18/16 11:43 Dose: 2 unit Lisinopril (Zestril) 20 mg NG BID [facility] [place] Last Admin: 10/18/16 10:41 Dose: 20 mg Midazolam HCl (Versed Inj) 2 mg IVP Q4H PRN PRN Reason: Agitation Last Admin: 10/14/16 06:54 Dose: 2 mg Polyethylene Glycol (Miralax) 17 gm PO DAILY [facility] [place] Last Admin: 10/15/16 11:19 Dose: Not Given Rosuvastatin Calcium (Crestor) 10 mg PO HS [facility] [place] Last Admin: 10/17/16 21:44 Dose: 10 mg Tiotropium [place] (Spiriva) 18 mcg INH RQ24 [facility] [place] - Labs Labs: 10/18/16 06:00 10/18/16 06:00 PT 12.3 SECONDS (9.7-12.2) H 10/06/16 01:34 INR 1.1 10/06/16 01:34 APTT 28 SECONDS (21-34) 10/18/16 06:00 - Constitutional Appears: Non-toxic - Respiratory Exam Respiratory Exam: Rhonchi - Cardiovascular Exam Cardiovascular Exam: Irregular Rhythm Assessment and Plan (1) Respiratory failure Assessment & Plan: extubated Status: Chronic (2) Abdominal distension Assessment & Plan: Bdomen is much softer today. Doubt obstruction.. KUB still shows colon ileus Status: Acute (3) Acute [place] Status: Acute (4) Atrial fibrillation Status: Acute (5) Dysphagia Assessment & Plan: Check po intake Status: Acute (6) Hypernatremia Status: Acute (7) Leucocytosis Status: Acute (8) Anemia Status: Acute
--- NOTE | 2016-10-18 16:14 | CP.PCM.PN ---
Subjective - Date & Time of Evaluation Date of Evaluation: 10/17/16 Time of Evaluation: 13:15 - Subjective Subjective: pt seen and evaluated, remains on mechanical ventilator, she had thoracocentesis , her parameters looks better, Reports abdominal distention is better, BMs and softer abdomen. No report of RB, melena, CP, fever, [place], hematuria, hemoptysis, SZ, tremor Objective - Vital Signs/Intake and Output Vital Signs (last 24 hours): Temp Pulse Resp BP Pulse Ox 97.5 F L 76 28 H 126/75 94 L 10/18/16 12:00 10/18/16 15:30 10/18/16 15:30 10/18/16 15:01 10/18/16 15:30 Intake and Output: 10/18/16 10/18/16 06:59 18:59 Intake Total 550 810 Output Total 1240 575 Balance -690 235 - Medications Medications: Current Medications Albuterol/Ipratropium (Duoneb 3 Mg/0.5 Mg (3 Ml) Ud) 3 ml INH RQ4 [facility] Last Admin: 10/18/16 13:27 Dose: Not Given Aspirin (Aspirin Chewable) 81 mg PO DAILY [facility] Last Admin: 10/18/16 11:41 Dose: 81 mg Budesonide (Pulmicort Respules) 0.5 mg INH RQ12 [facility] Last Admin: 10/18/16 07:32 Dose: 0.5 mg Clopidogrel Bisulfate (Plavix) 75 mg PO DAILY [facility] Last Admin: 10/18/16 11:42 Dose: 75 mg Diltiazem HCl (Cardizem) 60 mg GT QID [facility] Last Admin: 10/18/16 13:11 Dose: 60 mg Famotidine (Pepcid) 20 mg IVP DAILY [facility] Last Admin: 10/18/16 10:40 Dose: 20 mg Heparin Sodium (Porcine) (Heparin) 5,000 units SC Q12 [facility] Last Admin: 10/18/16 11:41 Dose: 5,000 units Sodium Chloride (Sodium Chloride 0.9%) 1,000 mls @ 60 mls/hr IV .[id number] [facility] Last Admin: 10/18/16 11:40 Dose: 60 mls/hr Insulin Human Regular (Novolin R) 0 unit SC Q6H [facility] PRN Reason: Protocol Last Admin: 10/18/16 11:43 Dose: 2 unit Lisinopril (Zestril) 20 mg NG BID [facility] Last Admin: 10/18/16 10:41 Dose: 20 mg Midazolam HCl (Versed Inj) 2 mg IVP Q4H PRN PRN Reason: Agitation Last Admin: 10/14/16 06:54 Dose: 2 mg Polyethylene Glycol (Miralax) 17 gm PO DAILY [facility] Last Admin: 10/15/16 11:19 Dose: Not Given Rosuvastatin Calcium (Crestor) 10 mg PO HS [facility] Last Admin: 10/17/16 21:44 Dose: 10 mg Tiotropium [place] (Spiriva) 18 mcg INH RQ24 [facility] - Labs Labs: 10/18/16 06:00 10/18/16 06:00 PT 12.3 SECONDS (9.7-12.2) H 10/06/16 01:34 INR 1.1 10/06/16 01:34 APTT 28 SECONDS (21-34) 10/18/16 06:00 - Constitutional Appears: Well - Head Exam Head Exam: ATRAUMATIC, NORMAL INSPECTION, NORMOCEPHALIC - Eye Exam Eye Exam: EOMI, Normal appearance, PERRL Pupil Exam: NORMAL ACCOMODATION, PERRL - Respiratory Exam Respiratory Exam: Clear to Ausculation Bilateral, NORMAL BREATHING PATTERN - Cardiovascular Exam Cardiovascular Exam: REGULAR RHYTHM, +S1, +S2. absent: Murmur Assessment and Plan (1) Acute respiratory failure with hypoxia and hypercarbia Status: Resolved (2) Altered mental status Status: Resolved (3) Acute NM Status: Acute (4) Dehydration Status: Acute (5) Abdominal distension Status: Acute (6) COPD (chronic obstructive pulmonary disease) Status: Chronic (7) Pleural effusion Status: Acute
--- NOTE | 2016-10-18 18:20 | CP.CCUPN ---
CCU Subjective - Physician Review Subjective (Free Text): 10/07/16 12:24 Patient was seen and examined in no acute distress. No acute events overnight. Packing remains in place. Patient appears more lethargic today at times as compared to her normal baseline. Patient was extubated 10/02/16 with O2 saturation in high 90s on venti mask. The patient has passed a swallow evaluation and eating though minimally. Per nursing, patient has not had a BM in 5-6 days. The patient did not comply with ROS due to somnolence. 10/08/16 12:48 Pt seen and examined though increasingly lethargic on evaluation and as per nursing. Patient desaturated into the 80's in mild distress prompting the need for intubation. A ROS could not be obtained due to patient's lethargy 10/09/16 14:24 Pt seen and examined in no acute distress. Patient intubated 10/08/16 with TLC placed with no events per nursing. A ROS could not be obtained due to patient's lethargy. 10/10/16 21:06 Pt seen and examined in no acute distress. No events overnight per nursing. An ROS could not be obtained due to patient being intubated and sedated. 10/11/16 07:16 Pt seen and examined in no acute distress. Patient hemodynamically stable at this time. Patient being weaned off FiO2. Feeds held in light of abdominal xray findings suggestive of large ileus. An ROS could not be obtained due to patient being intubated and sedated. Sister present bedside. 10/14/16 15:43 Pt seen and examined in no acute distress. Patient alert and able to point and gesture towards fan in need of cool air. Patient able to gesture and wave at family present bedside as well. Patient tolerating CPAP. Patient to have thoracentesis today after consent is obtained. An ROS could not be obtained at this time due to patient being intubated. 10/15/16 15:22 Pt seen and examined in no acute distress. Patient tolerating CPAP trial well. Patient had thoracentesis performed. Tolerated procedure well. Still intubated - No ROS at this time. 10/16/16 13:43 Pt seen and examined in no acute distress. Patient tolerating CPAP. Patient still intubated though quite responsive with palpation. No ROS at this time as patient is intubated. 10/17/16 17:42 Pt seen and examined in no acute distress. Patient tolerating CPAP with pressure support. Patient was extubated this afternoon. Patient instructed not to talk or speak. Patient denied chest pain, palpitations, headaches, subjective fevers or chills at this time. 10/18/16 18:46 Pt seen and examined in no acute distress. Patient passed swallow eval per nursing. Patient is easily irritated at times and stated that she wanted her mitten restraints pulled off. A few weeks prior, patient nearly pulled out all her lines and thus the mittens will stay in place per nursing. Patient tolerating a diet. Patient's mentation waxes and wanes. At times, she is more alert and other times, she repeats the same phrases over and over. At this time , she denies subjective fevers or chills, chest pain, nausea, vomiting, or diarrhea, paresthesias, or headaches. CCU Objective - Vital Signs / Intake & Output Vital Signs (Last 4 hours): Vital Signs Temp Pulse Resp BP Pulse Ox 10/18/16 16:30 76 28 H 94 L 10/18/16 16:01 74 29 H 149/74 93 L 10/18/16 16:00 97.8 F 73 29 H 97 10/18/16 15:36 78 26 H 93 L 10/18/16 15:30 76 28 H 94 L 10/18/16 15:01 81 13 126/75 90 L Intake and Output (Last 8hrs): Intake & Output 10/18/16 10/18/16 10/18/16 06:59 14:59 22:59 Intake Total 450 700 170 Output Total 415 535 70 Balance 35 165 100 Weight 164 lb 2 oz Intake: Intake, IV Amount 100 380 120 Right Medial Port 100 380 120 Subclavian Oral 350 320 50 Output: Urine 415 335 70 Urethral (Perez) 415 335 70 Stool 200 - Physical Exam Head: Positive for: Atraumatic, Normocephalic Pupils: Positive for: PERRL Extroacular Muscles: Positive for: EOMI Conjunctiva: Positive for: Injected Mouth: Positive for: Dry Neck: Positive for: Normal Range of Motion Respiratory/Chest: Positive for: Clear to Auscultation, Good Air Exchange, Rales. Negative for: Respiratory Distress, Accessory Muscle Use, Wheezes Cardiovascular: Positive for: Normal S1, S2, Irregular Rhythm. Negative for: Regular Rate and Rhythm, Murmurs Abdomen: Positive for: Distention, Normal Bowel Sounds. Negative for: Peritoneal Signs, Rebound Genitourinary/Pelvic Exam: Positive for: Other (perez in place) Upper Extremity: Positive for: Normal Inspection. Negative for: Cyanosis, Edema Lower Extremity: Positive for: Normal Inspection. Negative for: Edema, CALF TENDERNESS Neurological: Positive for: Other (sedated) Skin: Positive for: Warm, Dry Psychiatric: Positive for: Alert - Medications Active Medications: Active Medications Generic Name Dose Route Start Last Admin Trade Name Freq PRN Reason Stop Dose Admin Albuterol/Ipratropium 3 ml 10/15/16 08:00 10/18/16 16:47 Duoneb 3 Mg/0.5 Mg (3 Ml) Ud INH 3 ml RQ4 KAILA Administration Aspirin 81 mg 09/24/16 18:30 10/18/16 11:41 Aspirin Chewable PO 81 mg DAILY KAILA Administration Budesonide 0.5 mg 10/02/16 20:00 10/18/16 07:32 Pulmicort Respules INH 0.5 mg RQ12 KAILA Administration Clopidogrel Bisulfate 75 mg 09/26/16 10:00 10/18/16 11:42 Plavix PO 75 mg DAILY KAILA Administration Diltiazem HCl 60 mg 10/10/16 14:00 10/18/16 17:47 Cardizem GT 60 mg QID KAILA Administration Famotidine 20 mg 10/08/16 10:00 10/18/16 10:40 Pepcid IVP 20 mg DAILY KAILA Administration Heparin Sodium (Porcine) 5,000 units 10/17/16 10:15 10/18/16 11:41 Heparin SC 5,000 units Q12 KAILA Administration Sodium Chloride 1,000 mls @ 60 mls/hr 10/18/16 11:30 10/18/16 11:40 Sodium Chloride 0.9% IV 60 mls/hr .[id number] KAILA Administration Insulin Human Regular 0 unit 10/09/16 00:01 10/18/16 17:47 Novolin R SC 2 unit Q6H KAILA Administration Protocol Lisinopril 20 mg 10/05/16 18:00 10/18/16 17:47 Zestril NG 20 mg BID KAILA Administration Midazolam HCl 2 mg 10/13/16 12:35 10/14/16 06:54 Versed Inj IVP 2 mg Q4H PRN Administration Agitation Polyethylene Glycol 17 gm 10/06/16 10:00 10/15/16 11:19 Miralax PO Not Given DAILY KAILA Rosuvastatin Calcium 10 mg 09/23/16 22:00 10/17/16 21:44 Crestor PO 10 mg HS KAILA Administration Tiotropium [place] 18 mcg 10/19/16 08:00 Spiriva INH RQ24 KAILA - Patient Studies Lab Studies: Microbiology Studies 10/15/16 16:04 Gram Stain - Final Pleural Fluid Body Fluid Culture - Preliminary NO GROWTH AFTER 3 DAYS Lab Studies 10/18/16 10/18/16 10/18/16 Range/Units 17:37 12:04 11:28 WBC (4.8-10.8) K/uL RBC (3.80-5.20) Mil/uL Hgb (11.0-16.0) g/dL Hct (34.0-47.0) % MCV (81.0-99.0) fL MCH (27.0-31.0) pg MCHC (33.0-37.0) g/dL RDW (11.5-14.5) % Plt Count (130-400) K/uL MPV (7.2-11.7) fL Neut % (Auto) (50.0-75.0) % Lymph % (Auto) (20.0-40.0) % [place] % (Auto) (0.0-10.0) % Eos % (Auto) (0.0-4.0) % Baso % (Auto) (0.0-2.0) % Neut # (1.8-7.0) K/uL Lymph # (1.0-4.3) K/uL [place] # (0.0-0.8) K/uL Eos # (0.0-0.7) K/uL Baso # (0.0-0.2) K/uL Neutrophils % (Manual) (50-75) % Band Neutrophils % (0-2) % Lymphocytes % (Manual) (20-40) % Monocytes % (Manual) (0-10) % Platelet Estimate (NORMAL) Poikilocytosis (manual Basophilic Stippling Anisocytosis (manual) Ovalocytes APTT (21-34) SECONDS Puncture Site Rb pCO2 39 (35-45) mm/Hg pO2 71 L (80-100) mm/Hg HCO3 20.6 L (21-28) mmol/L ABG pH 7.32 L (7.35-7.45) ABG Total CO2 21.3 L (22-28) mmol/L ABG O2 Saturation 97.1 (95-98) % ABG Base Excess -5.5 L (-2.0-3.0) mmol/L ABG Hemoglobin 9.1 L (11.7-17.4) g/dL ABG Carboxyhemoglobin 2.3 H (0.5-1.5) % POC ABG HHb (Measured) 2.8 (0.0-5.0) % ABG Methemoglobin 1.0 (0.0-3.0) % Fish Test Na A-a O2 Difference 94.0 mm/Hg Respiratory Index 1.3 Hgb O2 Saturation 93.9 L (95.0-98.0) % Liter Flow 3.0 FiO2 30.0 % Sodium (132-148) mmol/L Potassium (3.6-5.2) mmol/L Chloride (98-107) mmol/L Carbon Dioxide (22-30) mmol/L Anion Gap (10-20) BUN (7-17) mg/dL Creatinine (0.7-1.2) MG/DL Est GFR ( Amer) Est GFR (Non-Af Amer) POC Glucose (mg/dL) 173 H 177 H (65-110) mg/dL Random Glucose (65-105) mg/dL Calcium (8.6-10.4) mg/dl Phosphorus (2.5-4.5) mg/dL Magnesium (1.6-2.3) mg/dL Total Bilirubin (0.2-1.3) mg/dL AST (14-36) U/L ALT (9-52) U/L Alkaline Phosphatase (38-126) U/L Total Protein (6.3-8.3) g/dL Albumin (3.5-5.0) g/dL Globulin (2.2-3.9) gm/dL Albumin/Globulin Ratio (1.0-2.1) 10/18/16 10/18/16 10/18/16 Range/Units 06:00 05:45 00:36 WBC 9.4 (4.8-10.8) K/uL RBC 3.15 L (3.80-5.20) Mil/uL Hgb 9.6 L (11.0-16.0) g/dL Hct 28.9 L (34.0-47.0) % MCV 91.8 (81.0-99.0) fL MCH 30.4 (27.0-31.0) pg MCHC 33.1 (33.0-37.0) g/dL RDW 15.0 H (11.5-14.5) % Plt Count 132 (130-400) K/uL MPV 10.1 (7.2-11.7) fL Neut % (Auto) 87.6 H (50.0-75.0) % Lymph % (Auto) 7.2 L (20.0-40.0) % [place] % (Auto) 5.1 (0.0-10.0) % Eos % (Auto) 0.0 (0.0-4.0) % Baso % (Auto) 0.1 (0.0-2.0) % Neut # 8.2 H (1.8-7.0) K/uL Lymph # 0.7 L (1.0-4.3) K/uL [place] # 0.5 (0.0-0.8) K/uL Eos # 0.0 (0.0-0.7) K/uL Baso # 0.0 (0.0-0.2) K/uL Neutrophils % (Manual) 79 H (50-75) % Band Neutrophils % 6 H (0-2) % Lymphocytes % (Manual) 10 L (20-40) % Monocytes % (Manual) 5 (0-10) % Platelet Estimate Normal (NORMAL) Poikilocytosis (manual Slight Basophilic Stippling Slight Anisocytosis (manual) Slight Ovalocytes Slight APTT 28 (21-34) SECONDS Puncture Site pCO2 (35-45) mm/Hg pO2 (80-100) mm/Hg HCO3 (21-28) mmol/L ABG pH (7.35-7.45) ABG Total CO2 (22-28) mmol/L ABG O2 Saturation (95-98) % ABG Base Excess (-2.0-3.0) mmol/L ABG Hemoglobin (11.7-17.4) g/dL ABG Carboxyhemoglobin (0.5-1.5) % POC ABG HHb (Measured) (0.0-5.0) % ABG Methemoglobin (0.0-3.0) % Fish Test A-a O2 Difference mm/Hg Respiratory Index Hgb O2 Saturation (95.0-98.0) % Liter Flow FiO2 % Sodium 150 H (132-148) mmol/L Potassium 2.8 L (3.6-5.2) mmol/L Chloride 114 H (98-107) mmol/L Carbon Dioxide 21 L (22-30) mmol/L Anion Gap 18 (10-20) BUN 51 H (7-17) mg/dL Creatinine 2.0 H (0.7-1.2) MG/DL Est GFR ( Amer) 29 Est GFR (Non-Af Amer) 24 POC Glucose (mg/dL) 118 H 115 H (65-110) mg/dL Random Glucose 100 (65-105) mg/dL Calcium 8.1 L (8.6-10.4) mg/dl Phosphorus 4.1 (2.5-4.5) mg/dL Magnesium 1.7 (1.6-2.3) mg/dL Total Bilirubin 0.4 (0.2-1.3) mg/dL AST 26 (14-36) U/L ALT 43 (9-52) U/L Alkaline Phosphatase 49 (38-126) U/L Total Protein 4.7 L (6.3-8.3) g/dL Albumin 2.4 L (3.5-5.0) g/dL Globulin 2.2 (2.2-3.9) gm/dL Albumin/Globulin Ratio 1.1 (1.0-2.1) Laboratory Results - last 24 hr 10/18/16 10/18/16 10/18/16 00:36 05:45 06:00 WBC 9.4 RBC 3.15 L Hgb 9.6 L Hct 28.9 L MCV 91.8 MCH 30.4 MCHC 33.1 RDW 15.0 H Plt Count 132 MPV 10.1 Neut % (Auto) 87.6 H Lymph % (Auto) 7.2 L [place] % (Auto) 5.1 Eos % (Auto) 0.0 Baso % (Auto) 0.1 Neut # 8.2 H Lymph # 0.7 L [place] # 0.5 Eos # 0.0 Baso # 0.0 Neutrophils % (Manual) 79 H Band Neutrophils % 6 H Lymphocytes % (Manual) 10 L Monocytes % (Manual) 5 Platelet Estimate Normal Poikilocytosis (manual Slight Basophilic Stippling Slight Anisocytosis (manual) Slight Ovalocytes Slight APTT 28 Puncture Site pCO2 pO2 HCO3 ABG pH ABG Total CO2 ABG O2 Saturation ABG Base Excess ABG Hemoglobin ABG Carboxyhemoglobin POC ABG HHb (Measured) ABG Methemoglobin Fish Test A-a O2 Difference Respiratory Index Hgb O2 Saturation Liter Flow FiO2 Sodium 150 H Potassium 2.8 L Chloride 114 H Carbon Dioxide 21 L Anion Gap 18 BUN 51 H Creatinine 2.0 H Est GFR ( Amer) 29 Est GFR (Non-Af Amer) 24 POC Glucose (mg/dL) 115 H 118 H Random Glucose 100 Calcium 8.1 L Phosphorus 4.1 Magnesium 1.7 Total Bilirubin 0.4 AST 26 ALT 43 Alkaline Phosphatase 49 Total Protein 4.7 L Albumin 2.4 L Globulin 2.2 Albumin/Globulin Ratio 1.1 10/18/16 10/18/16 10/18/16 11:28 12:04 17:37 WBC RBC Hgb Hct MCV MCH MCHC RDW Plt Count MPV Neut % (Auto) Lymph % (Auto) [place] % (Auto) Eos % (Auto) Baso % (Auto) Neut # Lymph # [place] # Eos # Baso # Neutrophils % (Manual) Band Neutrophils % Lymphocytes % (Manual) Monocytes % (Manual) Platelet Estimate Poikilocytosis (manual Basophilic Stippling Anisocytosis (manual) Ovalocytes APTT Puncture Site Rb pCO2 39 pO2 71 L HCO3 20.6 L ABG pH 7.32 L ABG Total CO2 21.3 L ABG O2 Saturation 97.1 ABG Base Excess -5.5 L ABG Hemoglobin 9.1 L ABG Carboxyhemoglobin 2.3 H POC ABG HHb (Measured) 2.8 ABG Methemoglobin 1.0 Fish Test Na A-a O2 Difference 94.0 Respiratory Index 1.3 Hgb O2 Saturation 93.9 L Liter Flow 3.0 FiO2 30.0 Sodium Potassium Chloride Carbon Dioxide Anion Gap BUN Creatinine Est GFR ( Amer) Est GFR (Non-Af Amer) POC Glucose (mg/dL) 177 H 173 H Random Glucose Calcium Phosphorus Magnesium Total Bilirubin AST ALT Alkaline Phosphatase Total Protein Albumin Globulin Albumin/Globulin Ratio Fingerstick Blood Sugar Results: 173 Review of Systems - Review of Systems Review of Systems: see subjective Critical Care Progress Note - Nutrition Nutrition: Nutrition Category Date Time Status Liquid Diet [DIET] Diets 10/18/16 Breakfast Active Assessment/Plan - Assessment and Plan (Free Text) Assessment: 86-year-old female with PMHx significant for COPD hypertension and CAD, initially presented to ICU with acute respiratory failure and hypercarbic encephalopathy. Patient had a prior episode of epistaxis which has since resolved. Patient desaturated 10/08/16 in mild distress prompting re-intubation. Patient s/p thoracentesis. Patient with 9 cm cecal distension noted on recent CT abdomen imaging 10/15. Clinically patient improved. Extubated 10/17 in afternoon. Saturating well on nc. Plan: Neuro: Could not comply with ROS at this time 09/23/16 CT Head- Generalized atrophy. Nonspecific white matter changes. Cardiovascular: Better rate control noted HTN Diltiazem IV switched to OGT QID Plavix 75mg PO daily Lisinopril 20mg NG BID daily Aspirin 81mg po daily Rouvastatin 10mg po HS Heparin SC Q12 Pulmonary: extubated 10/17. TO begin Spiriva s/p thoracentesis- 350 cc of brownish colored fluid removed. F/U pleural studies ( cell count/diff, glucose, LDH, albumin, amylase, cholesterol, total protein), Lactic acid and LDH serum Continue ventilatory support, follow up ABG and reduce FiO2 as tolerated Solumedrol tapered down- 20mg IV daily Budesonide 0.5mg INH Q12, Duoneb Imagin10/18/16- hazy opacities in lung bases; inc pulmonary vascular congestion 10/17/16- bilateral atelectatic and or infiltrate changes and bilateral effusions - F/U full report 10/16/16- small left pleural effusion, central vasc congestion; tubes and lines in place ( refer to full report). AB10/18/16 pH 7.32, PCO2 39, PO2 71, HCO3 21.3 ( day 1 post extubation) on 3L nc 10/17/16 pH 7.32, PCO2 40, PO2 122, HCO3 21 ( pre-extubation) GI: Abd XRAY- marked distension of suspected right and transverse colon 10/17: Rectal tube drainage ~200 cc of stool output overnight. Surgery reccs for Neostigmine. Patient should have had greater output at this time. This may help treat the ileus. 10/15/16: 9 cm cecal dilation noted without evidence of obstruction. 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 Surgery ( made aware) Will follow. Per GI, hold feeds. Abdominal flat plate per GI 10/11/16 - results report mildly dilated loops of bowel in RUQ w/ nonspecific gas pattern. CT of abd/ pelvis suggested ; however patient had one performed 09/29/16. In light of suspicions of ileus will hold feeds.- F/U with GI recommendations Pepcid 20 mg IV daily Hematology: WBC stable Hgb/Hct stable : stable. Cont to monitor Cont to monitor for signs of epistasxis, new hematomas or bleeding Endocrine: Maintain euglycemia HbA1c- 5.9 Insulin Sliding Scale protocol Renal: BUN/Cr: 51/2.0 Hypokalemia- repleted ID: U/A negative, UC negative Blood Cx negative DC Abx 10/03/16 : Perez in place MSK: turn 2 qh to prevent bed sores PT/OT follow up Palliative Care: Palliative Care Consult Placed- F/U Prophylaxis- Pepcid 20mg IV daily Heparin SC Q12 Ensure Enlive - three times a day
--- NOTE | 2016-10-19 00:02 | CP.PCM.PN ---
Subjective - Date & Time of Evaluation Date of Evaluation: 10/18/16 Time of Evaluation: 13:17 - Subjective Subjective: Pt seen & evaluated, was extubated today, is more calm, and awake, she is breathing with oxygen via nasal canula,Patient passed swallow eval patient nearly pulled out all her lines few days prior and thus the mittens will stay in place per nursing. Patient tolerating a diet. Patient's mentation waxes and wanes. At times, she is more alert and other times, she repeats the same phrases over and over. At this time, she denies subjective fevers or chills, chest pain, nausea, vomiting, or diarrhea, paresthesias, or headach Objective - Vital Signs/Intake and Output Vital Signs (last 24 hours): Temp Pulse Resp BP Pulse Ox 97.7 F 78 29 H 145/69 98 10/18/16 20:00 10/18/16 23:01 10/18/16 23:01 10/18/16 23:01 10/18/16 23:01 Intake and Output: 10/18/16 10/19/16 18:59 06:59 Intake Total 1140 400 Output Total 725 280 Balance 415 120 - Medications Medications: Current Medications Albuterol/Ipratropium (Duoneb 3 Mg/0.5 Mg (3 Ml) Ud) 3 ml INH RQ4 KAILA Last Admin: 10/18/16 23:41 Dose: 3 ml Aspirin (Aspirin Chewable) 81 mg PO DAILY [facility] Last Admin: 10/18/16 11:41 Dose: 81 mg Budesonide (Pulmicort Respules) 0.5 mg INH RQ12 KAILA Last Admin: 10/18/16 19:15 Dose: 0.5 mg Clopidogrel Bisulfate (Plavix) 75 mg PO DAILY [facility] Last Admin: 10/18/16 11:42 Dose: 75 mg Diltiazem HCl (Cardizem) 60 mg GT QID [facility] Last Admin: 10/18/16 22:10 Dose: 60 mg Famotidine (Pepcid) 20 mg IVP DAILY [facility] Last Admin: 10/18/16 10:40 Dose: 20 mg Heparin Sodium (Porcine) (Heparin) 5,000 units SC Q12 [facility] Last Admin: 10/18/16 22:09 Dose: 5,000 units Sodium Chloride (Sodium Chloride 0.9%) 1,000 mls @ 60 mls/hr IV .[id number] [facility] Last Admin: 10/18/16 11:40 Dose: 60 mls/hr Insulin Human Regular (Novolin R) 0 unit SC ACHS [facility] PRN Reason: Protocol Lisinopril (Zestril) 20 mg NG BID [facility] Last Admin: 10/18/16 17:47 Dose: 20 mg Midazolam HCl (Versed Inj) 2 mg IVP Q4H PRN PRN Reason: Agitation Last Admin: 10/14/16 06:54 Dose: 2 mg Polyethylene Glycol (Miralax) 17 gm PO DAILY [facility] Last Admin: 10/15/16 11:19 Dose: Not Given Rosuvastatin Calcium (Crestor) 10 mg PO HS [facility] Last Admin: 10/18/16 22:10 Dose: 10 mg Tiotropium [place] (Spiriva) 18 mcg INH RQ24 [facility] - Labs Labs: 10/18/16 06:00 10/18/16 06:00 PT 12.3 SECONDS (9.7-12.2) H 10/06/16 01:34 INR 1.1 10/06/16 01:34 APTT 28 SECONDS (21-34) 10/18/16 06:00 - Constitutional Appears: No Acute Distress, Chronically Ill - Eye Exam Eye Exam: EOMI, Normal appearance, PERRL Pupil Exam: NORMAL ACCOMODATION, PERRL - ENT Exam ENT Exam: Mucous Membranes Moist, Normal Exam - Respiratory Exam Respiratory Exam: Clear to Ausculation Bilateral, NORMAL BREATHING PATTERN - Cardiovascular Exam Cardiovascular Exam: REGULAR RHYTHM, +S1, +S2. absent: Murmur - GI/Abdominal Exam GI & Abdominal Exam: Soft, Normal Bowel Sounds. absent: Tenderness Assessment and Plan (1) Acute respiratory failure with hypoxia and hypercarbia Status: Resolved (2) Altered mental status Status: Resolved (3) Acute [place] Status: Acute (4) Dehydration Status: Acute (5) Abdominal distension Status: Acute (6) COPD (chronic obstructive pulmonary disease) Status: Chronic (7) Pleural effusion Status: Acute
[2016-10-19 00:21] LABS: LDH PLEURAL FLUID 218 U/L (())
[2016-10-19] MEDS: Albuterol-Ipratrop 3 mg / 0.5 (3 ml) UD INH SCH ×5 (03:00→19:10)
[2016-10-19 04:21] LABS: AMYLASE PLEURAL FLUID 10 U/L (())
[2016-10-19] MEDS: Sodium Chloride 0.9% 1,000 ML IV SCH ×2 (04:22→21:30)
[2016-10-19 06:24] LABS: BASO % 0.2 % (0.0-2.0); EOS % 0.2 % (0.0-4.0); HEMATOCRIT 29.9 % (34.0-47.0); LYMPH # 0.6 K/uL (1.0-4.3); LYMPH % 7.9 % (20.0-40.0); MEAN CELL VOLUME 91.5 fL (81.0-99.0); MEAN CORPUSCULAR HEMOGLOBIN 29.7 pg (27.0-31.0); MEAN CORPUSCULAR HGB CONC 32.5 g/dL (33.0-37.0); MEAN PLATELET VOLUME 9.5 fL (7.2-11.7); MONO # 0.4 K/uL (0.0-0.8); NRBC % 0.1 % (0.0-2.0); PLATELET COUNT 120 K/uL (130-400); RED CELL DISTRIBUTION WIDTH 15.6 % (11.5-14.5); WHITE BLOOD COUNT 8.2 K/uL (4.8-10.8)
[2016-10-19 06:32] LABS: BILIRUBIN,TOTAL 0.4 mg/dL (0.2-1.3)
[2016-10-19 06:33] LABS: ALB/GLOB RATIO 1.1 (1.0-2.1); MAGNESIUM 1.7 mg/dL (1.6-2.3); PHOSPHOROUS 3.7 mg/dL (2.5-4.5); TOTAL PROTEIN 4.7 g/dL (6.3-8.3)
[2016-10-19] MEDS: Budesonide 0.5 mg/2 ml Inhal Susp UD INH SCH ×2 (07:49→19:10)
[2016-10-19 08:28] LABS: NEUTROPHIL 90 % (50-75); TOTAL CELLS COUNTED 100
[2016-10-19] MEDS: (Novolin R) Insulin Human Regular 100 units/ml vial SC SCH ×4 (09:18→22:00)
[2016-10-19] MEDS ORDERED: Potassium Chloride 20 mEq 100 ML IVPB ONE (10:00)
--- NOTE | 2016-10-19 10:00 | CP.PCM.PN ---
Subjective - Date & Time of Evaluation Date of Evaluation: 10/19/16 Time of Evaluation: 09:57 - Subjective Subjective: General Surgery - Dr. 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 PT resting comfortably, she denies any abdominal pain or complaints. Rectal tube is draining soft/liquid stool. Objective - Vital Signs/Intake and Output Vital Signs (last 24 hours): Temp Pulse Resp BP Pulse Ox 98.1 F 83 29 H 172/84 H 97 10/19/16 08:00 10/19/16 08:47 10/19/16 08:30 10/19/16 08:01 10/19/16 08:30 Intake and Output: 10/19/16 10/19/16 06:59 18:59 Intake Total 920 60 Output Total 650 75 Balance 270 -15 - Medications Medications: Current Medications Albuterol/Ipratropium (Duoneb 3 Mg/0.5 Mg (3 Ml) Ud) 3 ml INH RQ4 [facility] Last Admin: 10/19/16 07:49 Dose: 3 ml Aspirin (Aspirin Chewable) 81 mg PO DAILY [facility] Last Admin: 10/18/16 11:41 Dose: 81 mg Budesonide (Pulmicort Respules) 0.5 mg INH RQ12 [facility] Last Admin: 10/19/16 07:49 Dose: 0.5 mg Clopidogrel Bisulfate (Plavix) 75 mg PO DAILY [facility] Last Admin: 10/18/16 11:42 Dose: 75 mg Diltiazem HCl (Cardizem) 60 mg GT QID [facility] Last Admin: 10/18/16 22:10 Dose: 60 mg Famotidine (Pepcid) 20 mg IVP DAILY [facility] Last Admin: 10/18/16 10:40 Dose: 20 mg Heparin Sodium (Porcine) (Heparin) 5,000 units SC Q12 [facility] Last Admin: 10/18/16 22:09 Dose: 5,000 units Sodium Chloride (Sodium Chloride 0.9%) 1,000 mls @ 60 mls/hr IV .[id number] [facility] Last Admin: 10/19/16 04:22 Dose: 60 mls/hr Potassium Chloride (Potassium Chloride 20 Meq/100 Ml) 100 mls @ 50 mls/hr IVPB ONCE ONE Stop: 10/19/16 11:59 Insulin Human Regular (Novolin R) 0 unit SC ACHS [facility] PRN Reason: Protocol Last Admin: 10/19/16 09:18 Dose: Not Given Lisinopril (Zestril) 20 mg NG BID [facility] Last Admin: 10/18/16 17:47 Dose: 20 mg Midazolam HCl (Versed Inj) 2 mg IVP Q4H PRN PRN Reason: Agitation Last Admin: 10/14/16 06:54 Dose: 2 mg Polyethylene Glycol (Miralax) 17 gm PO DAILY [facility] Last Admin: 10/15/16 11:19 Dose: Not Given Potassium Chloride (Potassium Chloride Oral Soln) 40 meq PO DAILY [facility] Rosuvastatin Calcium (Crestor) 10 mg PO HS [facility] Last Admin: 10/18/16 22:10 Dose: 10 mg Tiotropium [place] (Spiriva) 18 mcg INH RQ24 [facility] - Labs Labs: 10/19/16 06:11 10/19/16 06:15 PT 12.3 SECONDS (9.7-12.2) H 10/06/16 01:34 INR 1.1 10/06/16 01:34 APTT 28 SECONDS (21-34) 10/18/16 06:00 - Constitutional Appears: Well, No Acute Distress - Head Exam Head Exam: ATRAUMATIC, NORMOCEPHALIC - Eye Exam Eye Exam: EOMI, Normal appearance - Respiratory Exam Respiratory Exam: NORMAL BREATHING PATTERN. absent: Respiratory Distress - GI/Abdominal Exam GI & Abdominal Exam: Distended (mildly, much improved from yesterday), Soft. absent: Firm, Guarding, Rigid, Tenderness, Rebound - Neurological Exam Neurological Exam: Alert, Oriented x3 - Psychiatric Exam Psychiatric exam: Normal Affect, Normal Mood - Skin Skin Exam: Dry, Intact Assessment and Plan - Assessment and Plan (Free Text) Assessment: 86F with colonic ileus Plan: -Much improved after Neostigmine yesterday -Continue rectal tube for colonic decompression -Potassium daily -F/U GI recc. -No surgical intervention needed, surgery will sign off, reconsult prn -D/W Dr. Tony León PGY2
[2016-10-19] MEDS: Potassium Chloride 20 mEq/15 ml LIQ UD PO SCH (10:24)
[2016-10-19] MEDS: Tiotropium 18 mcg Cap For Inhalation INH SCH (11:21)
--- NOTE | 2016-10-19 11:30 | RAD ---
HISTORY: s/p extubation COMPARISON: 10/18/2016 FINDINGS: LUNGS: increasing bibasilar and perihilar ill-defined opacities. PLEURA: Probable small bilateral pleural effusion. No pneumothorax. CARDIOVASCULAR: Normal heart size. Right subclavian central venous catheter unchanged. Mild congestive change. OSSEOUS STRUCTURES: No significant abnormalities. VISUALIZED UPPER ABDOMEN: Normal. OTHER FINDINGS: None. IMPRESSION: Increasing bibasilar and perihilar infiltrate. Mild congestive change. Probable small bilateral pleural effusion.
--- NOTE | 2016-10-19 13:34 | CP.PCM.PN ---
Subjective - Date & Time of Evaluation Date of Evaluation: 10/19/16 Time of Evaluation: 13:32 - Subjective Subjective: Patient is lethargic this morning, does not answer questions. She stays, "Stop that," when the abdomen is palpated. Objective - Vital Signs/Intake and Output Vital Signs (last 24 hours): Temp Pulse Resp BP Pulse Ox 98.1 F 83 29 H 172/84 H 97 10/19/16 08:00 10/19/16 08:47 10/19/16 08:30 10/19/16 08:01 10/19/16 08:30 Intake and Output: 10/19/16 10/19/16 06:59 18:59 Intake Total 920 60 Output Total 650 75 Balance 270 -15 - Medications Medications: Current Medications Albuterol/Ipratropium (Duoneb 3 Mg/0.5 Mg (3 Ml) Ud) 3 ml INH RQ4 [facility] Last Admin: 10/19/16 11:18 Dose: 3 ml Aspirin (Aspirin Chewable) 81 mg PO DAILY [facility] Last Admin: 10/19/16 10:25 Dose: 81 mg Budesonide (Pulmicort Respules) 0.5 mg INH RQ12 [facility] Last Admin: 10/19/16 07:49 Dose: 0.5 mg Clopidogrel Bisulfate (Plavix) 75 mg PO DAILY [facility] Last Admin: 10/19/16 10:25 Dose: 75 mg Diltiazem HCl (Cardizem) 60 mg GT QID [facility] Last Admin: 10/19/16 10:25 Dose: 60 mg Famotidine (Pepcid) 20 mg IVP DAILY [facility] Last Admin: 10/19/16 10:25 Dose: 20 mg Heparin Sodium (Porcine) (Heparin) 5,000 units SC Q12 [facility] Last Admin: 10/19/16 10:25 Dose: 5,000 units Sodium Chloride (Sodium Chloride 0.9%) 1,000 mls @ 60 mls/hr IV .[id number] [facility] Last Admin: 10/19/16 04:22 Dose: 60 mls/hr Insulin Human Regular (Novolin R) 0 unit SC ACHS [facility] PRN Reason: Protocol Last Admin: 10/19/16 09:18 Dose: Not Given Lisinopril (Zestril) 20 mg NG BID [facility] Last Admin: 10/19/16 10:25 Dose: 20 mg Midazolam HCl (Versed Inj) 2 mg IVP Q4H PRN PRN Reason: Agitation Last Admin: 10/14/16 06:54 Dose: 2 mg Polyethylene Glycol (Miralax) 17 gm PO DAILY [facility] Last Admin: 10/15/16 11:19 Dose: Not Given Potassium Chloride (Potassium Chloride Oral Soln) 40 meq PO DAILY [facility] Last Admin: 10/19/16 10:24 Dose: 40 meq Rosuvastatin Calcium (Crestor) 10 mg PO HS [facility] Last Admin: 10/18/16 22:10 Dose: 10 mg Tiotropium [place] (Spiriva) 18 mcg INH RQ24 [facility] Last Admin: 10/19/16 11:21 Dose: Not Given - Labs Labs: 10/19/16 06:11 10/19/16 06:15 PT 12.3 SECONDS (9.7-12.2) H 10/06/16 01:34 INR 1.1 10/06/16 01:34 APTT 28 SECONDS (21-34) 10/18/16 06:00 - Constitutional Appears: Confused - Head Exam Head Exam: ATRAUMATIC, NORMOCEPHALIC - Eye Exam Eye Exam: EOMI, PERRL - Neck Exam Neck Exam: absent: Lymphadenopathy, Thyromegaly - Respiratory Exam Respiratory Exam: NORMAL BREATHING PATTERN. absent: Rales, Rhonchi, Wheezes - Cardiovascular Exam Cardiovascular Exam: REGULAR RHYTHM, +S1, +S2. absent: Gallop, Rubs, Murmur - GI/Abdominal Exam GI & Abdominal Exam: Soft, Normal Bowel Sounds. absent: Tenderness, Mass, Organomegaly - Rectal Exam Rectal Exam: Deferred - Extremities Exam Extremities Exam: absent: Calf Tenderness, Pedal Edema Assessment and Plan (1) Abdominal distension, gaseous Assessment & Plan: The colon seems less distended on the abdominal xray of 10/18/2016. Will order repeat KUB. The potassium is slightly low at 3.0, and should be repleted. Status: Acute
[2016-10-19 14:12] LABS: CHOLESTEROL PLEURAL FLUID 25 mg/dL (()); GLUCOSE PLEURAL FLUID 157 mg/dL (())
--- NOTE | 2016-10-19 15:43 | CP.PCM.PN ---
Subjective - Date & Time of Evaluation Date of Evaluation: 10/19/16 Time of Evaluation: 15:41 - Subjective Subjective: lethargic,tachypnic. Objective - Vital Signs/Intake and Output Vital Signs (last 24 hours): Temp Pulse Resp BP Pulse Ox 97.8 F 83 31 H 170/78 H 96 10/19/16 14:00 10/19/16 15:01 10/19/16 15:01 10/19/16 15:01 10/19/16 15:01 Intake and Output: 10/19/16 10/19/16 06:59 18:59 Intake Total 920 60 Output Total 650 75 Balance 270 -15 - Medications Medications: Current Medications Albuterol/Ipratropium (Duoneb 3 Mg/0.5 Mg (3 Ml) Ud) 3 ml INH RQ4 [facility] Last Admin: 10/19/16 11:18 Dose: 3 ml Aspirin (Aspirin Chewable) 81 mg PO DAILY [facility] Last Admin: 10/19/16 10:25 Dose: 81 mg Budesonide (Pulmicort Respules) 0.5 mg INH RQ12 [facility] Last Admin: 10/19/16 07:49 Dose: 0.5 mg Clopidogrel Bisulfate (Plavix) 75 mg PO DAILY [facility] Last Admin: 10/19/16 10:25 Dose: 75 mg Diltiazem HCl (Cardizem) 60 mg GT QID [facility] Last Admin: 10/19/16 10:25 Dose: 60 mg Famotidine (Pepcid) 20 mg IVP DAILY [facility] Last Admin: 10/19/16 10:25 Dose: 20 mg Heparin Sodium (Porcine) (Heparin) 5,000 units SC Q12 [facility] Last Admin: 10/19/16 10:25 Dose: 5,000 units Sodium Chloride (Sodium Chloride 0.9%) 1,000 mls @ 60 mls/hr IV .[id number] [facility] Last Admin: 10/19/16 04:22 Dose: 60 mls/hr Insulin Human Regular (Novolin R) 0 unit SC ACHS [facility] PRN Reason: Protocol Last Admin: 10/19/16 09:18 Dose: Not Given Lisinopril (Zestril) 20 mg NG BID [facility] Last Admin: 10/19/16 10:25 Dose: 20 mg Midazolam HCl (Versed Inj) 2 mg IVP Q4H PRN PRN Reason: Agitation Last Admin: 10/14/16 06:54 Dose: 2 mg Polyethylene Glycol (Miralax) 17 gm PO DAILY [facility] Last Admin: 10/15/16 11:19 Dose: Not Given Potassium Chloride (Potassium Chloride Oral Soln) 40 meq PO DAILY [facility] Last Admin: 10/19/16 10:24 Dose: 40 meq Rosuvastatin Calcium (Crestor) 10 mg PO HS [facility] Last Admin: 10/18/16 22:10 Dose: 10 mg Tiotropium [place] (Spiriva) 18 mcg INH RQ24 [facility] Last Admin: 10/19/16 11:21 Dose: Not Given - Labs Labs: 10/19/16 06:11 10/19/16 06:15 PT 12.3 SECONDS (9.7-12.2) H 10/06/16 01:34 INR 1.1 10/06/16 01:34 APTT 28 SECONDS (21-34) 10/18/16 06:00 - Constitutional Appears: No Acute Distress, Chronically Ill - Head Exam Head Exam: NORMAL INSPECTION - Eye Exam Eye Exam: Normal appearance - Neck Exam Neck Exam: Normal Inspection - Respiratory Exam Respiratory Exam: Rhonchi - Cardiovascular Exam Cardiovascular Exam: REGULAR RHYTHM, Murmur - GI/Abdominal Exam GI & Abdominal Exam: Soft Assessment and Plan - Assessment and Plan (Free Text) Plan: pt seems more lethargic today.rr of 30. will hold off with transfer. transfer to my service. diss with dr jim yanes.
--- NOTE | 2016-10-19 16:30 | CP.PCM.PN ---
Subjective - Date & Time of Evaluation Date of Evaluation: 10/19/16 Time of Evaluation: 16:15 - Subjective Subjective: patient seen and examined in the intensive care unit Confused in mild respiratory distress afebrile Objective - Vital Signs/Intake and Output Vital Signs (last 24 hours): Temp Pulse Resp BP Pulse Ox 97.8 F 83 31 H 170/78 H 96 10/19/16 14:00 10/19/16 15:01 10/19/16 15:01 10/19/16 15:01 10/19/16 15:01 Intake and Output: 10/19/16 10/19/16 06:59 18:59 Intake Total 920 60 Output Total 650 75 Balance 270 -15 - Medications Medications: Current Medications Albuterol/Ipratropium (Duoneb 3 Mg/0.5 Mg (3 Ml) Ud) 3 ml INH RQ4 [facility] Last Admin: 10/19/16 15:47 Dose: 3 ml Aspirin (Aspirin Chewable) 81 mg PO DAILY [facility] Last Admin: 10/19/16 10:25 Dose: 81 mg Budesonide (Pulmicort Respules) 0.5 mg INH RQ12 [facility] Last Admin: 10/19/16 07:49 Dose: 0.5 mg Clopidogrel Bisulfate (Plavix) 75 mg PO DAILY [facility] Last Admin: 10/19/16 10:25 Dose: 75 mg Diltiazem HCl (Cardizem) 60 mg GT QID [facility] Last Admin: 10/19/16 10:25 Dose: 60 mg Famotidine (Pepcid) 20 mg IVP DAILY [facility] Last Admin: 10/19/16 10:25 Dose: 20 mg Heparin Sodium (Porcine) (Heparin) 5,000 units SC Q12 [facility] Last Admin: 10/19/16 10:25 Dose: 5,000 units Sodium Chloride (Sodium Chloride 0.9%) 1,000 mls @ 60 mls/hr IV .[id number] [facility] Last Admin: 10/19/16 04:22 Dose: 60 mls/hr Insulin Human Regular (Novolin R) 0 unit SC ACHS [facility] PRN Reason: Protocol Last Admin: 10/19/16 09:18 Dose: Not Given Lisinopril (Zestril) 20 mg NG BID [facility] Last Admin: 10/19/16 10:25 Dose: 20 mg Midazolam HCl (Versed Inj) 2 mg IVP Q4H PRN PRN Reason: Agitation Last Admin: 10/14/16 06:54 Dose: 2 mg Polyethylene Glycol (Miralax) 17 gm PO DAILY [facility] Last Admin: 10/15/16 11:19 Dose: Not Given Potassium Chloride (Potassium Chloride Oral Soln) 40 meq PO DAILY [facility] Last Admin: 10/19/16 10:24 Dose: 40 meq Rosuvastatin Calcium (Crestor) 10 mg PO HS [facility] Last Admin: 10/18/16 22:10 Dose: 10 mg Tiotropium [place] (Spiriva) 18 mcg INH RQ24 [facility] Last Admin: 10/19/16 11:21 Dose: Not Given - Labs Labs: 10/19/16 06:11 10/19/16 06:15 PT 12.3 SECONDS (9.7-12.2) H 10/06/16 01:34 INR 1.1 10/06/16 01:34 APTT 28 SECONDS (21-34) 10/18/16 06:00 - Head Exam Head Exam: ATRAUMATIC, NORMOCEPHALIC - Eye Exam Eye Exam: Normal appearance - ENT Exam ENT Exam: Mucous Membranes Moist - Neck Exam Neck Exam: Normal Inspection - Respiratory Exam Respiratory Exam: Decreased Breath Sounds - Cardiovascular Exam Cardiovascular Exam: Irregular Rhythm - GI/Abdominal Exam GI & Abdominal Exam: Soft, Normal Bowel Sounds Assessment and Plan (1) COPD (chronic obstructive pulmonary disease) Assessment & Plan: n mild respiratory distress with confusion and restlessne Continue nebulizer rufino Continue with monitoring Status: Chronic (2) Acute [place] Status: Acute (3) Leucocytosis Status: Acute
[2016-10-20] MEDS: (Novolin R) Insulin Human Regular 100 units/ml vial SC SCH ×4 (07:44→21:40)
[2016-10-20] MEDS: Albuterol-Ipratrop 3 mg / 0.5 (3 ml) UD INH SCH (08:11)
[2016-10-20] MEDS: Budesonide 0.5 mg/2 ml Inhal Susp UD INH SCH ×2 (08:11→19:40)
[2016-10-20] MEDS: Tiotropium 18 mcg Cap For Inhalation INH SCH (08:11)
[2016-10-20] MEDS: Potassium Chloride 20 mEq/15 ml LIQ UD PO SCH ×2 (10:15→14:47)
--- NOTE | 2016-10-20 10:56 | RAD ---
HISTORY: Follow up dilated colon COMPARISON: 10/18/2016 FINDINGS: BOWEL: Normal abdominal bowel gas pattern. No evidence of bowel obstruction. Calcified fibroid in the uterus. Urinary catheter noted. BONES: Normal. OTHER FINDINGS: None. IMPRESSION: Normal bowel gas pattern.
[2016-10-20 11:59] LABS: POTASSIUM 3.2 mmol/L (3.6-5.2)
[2016-10-20 12:01] LABS: ALB/GLOB RATIO 0.9 (1.0-2.1); BILIRUBIN,TOTAL 0.5 mg/dL (0.2-1.3); TOTAL PROTEIN 4.5 g/dL (6.3-8.3)
[2016-10-20] MEDS ORDERED: Potassium Chloride 20 mEq 100 ML IVPB ONE ×2 (12:57→21:40)
[2016-10-20] MEDS ORDERED: Digoxin 500 mcg/2ml (0.5 mg/2ml) Inj IVP ONE ×2 (15:52→22:00)
--- NOTE | 2016-10-20 16:29 | CP.PCM.PN ---
Subjective - Date & Time of Evaluation Date of Evaluation: 10/20/16 Time of Evaluation: 16:28 - Subjective Subjective: confused.refusing meds.rapid a.fib.na 155. Objective - Vital Signs/Intake and Output Vital Signs (last 24 hours): Temp Pulse Resp BP Pulse Ox 97.5 F L 106 H 0 L 146/72 97 10/20/16 15:45 10/20/16 15:45 10/20/16 15:45 10/20/16 15:45 10/20/16 15:45 Intake and Output: 10/20/16 10/20/16 06:59 18:59 Intake Total 120 180 Output Total 1100 800 Balance -980 -620 - Medications Medications: Current Medications Aspirin (Aspirin Chewable) 81 mg PO DAILY [facility] Last Admin: 10/20/16 14:46 Dose: Not Given Budesonide (Pulmicort Respules) 0.5 mg INH RQ12 [facility] Last Admin: 10/20/16 08:11 Dose: 0.5 mg Clopidogrel Bisulfate (Plavix) 75 mg PO DAILY [facility] Last Admin: 10/20/16 14:47 Dose: Not Given Digoxin (Lanoxin) 0.25 mg IVP ONCE ONE Stop: 10/20/16 22:01 Diltiazem HCl (Cardizem) 60 mg GT QID [facility] Last Admin: 10/20/16 14:46 Dose: Not Given Famotidine (Pepcid) 20 mg IVP DAILY [facility] [place] Last Admin: 10/20/16 10:15 Dose: 20 mg Dextrose (Dextrose 5% In Water 1000 Ml) 1,000 mls @ 60 mls/hr IV .[id number] [facility] [place] Last Admin: 10/20/16 14:15 Dose: 60 mls/hr Insulin Human Regular (Novolin R) 0 unit SC ACHS [facility] [place] PRN Reason: Protocol Last Admin: 10/20/16 14:47 Dose: Not Given Lisinopril (Zestril) 20 mg NG BID [facility] [place] Last Admin: 10/20/16 14:48 Dose: Not Given Polyethylene Glycol (Miralax) 17 gm PO DAILY [facility] Last Admin: 10/15/16 11:19 Dose: Not Given Potassium Chloride (Potassium Chloride Oral Soln) 40 meq PO DAILY [facility] [place] Last Admin: 10/20/16 14:47 Dose: Not Given Rosuvastatin Calcium (Crestor) 10 mg PO HS [facility] Last Admin: 10/19/16 22:15 Dose: 10 mg Tiotropium [place] (Spiriva) 18 mcg INH RQ24 [facility] Last Admin: 10/20/16 08:11 Dose: Not Given - Labs Labs: 10/19/16 06:11 10/20/16 11:40 PT 12.3 SECONDS (9.7-12.2) H 10/06/16 01:34 INR 1.1 10/06/16 01:34 APTT 28 SECONDS (21-34) 10/18/16 06:00 - Constitutional Appears: No Acute Distress, Confused, Chronically Ill - Eye Exam Eye Exam: Normal appearance - Neck Exam Neck Exam: Normal Inspection - Respiratory Exam Respiratory Exam: Rhonchi - Cardiovascular Exam Cardiovascular Exam: Irregular Rhythm - GI/Abdominal Exam GI & Abdominal Exam: Soft - Neurological Exam Neurological Exam: Awake Assessment and Plan - Assessment and Plan (Free Text) Assessment: labs noted.rapid a.fib. will dig. add po cardizem. may need peg. knows my name,place.
--- NOTE | 2016-10-20 16:47 | CP.PCM.PN ---
Objective - Vital Signs/Intake and Output Vital Signs (last 24 hours): Temp Pulse Resp BP Pulse Ox 97.5 F L 106 H 0 L 146/72 97 10/20/16 15:45 10/20/16 15:45 10/20/16 15:45 10/20/16 15:45 10/20/16 15:45 Intake and Output: 10/20/16 10/20/16 06:59 18:59 Intake Total 120 180 Output Total 1100 800 Balance -980 -620 - Medications Medications: Current Medications Aspirin (Aspirin Chewable) 81 mg PO DAILY [facility] Last Admin: 10/20/16 14:46 Dose: Not Given Budesonide (Pulmicort Respules) 0.5 mg INH RQ12 [facility] Last Admin: 10/20/16 08:11 Dose: 0.5 mg Clopidogrel Bisulfate (Plavix) 75 mg PO DAILY [facility] Last Admin: 10/20/16 14:47 Dose: Not Given Digoxin (Lanoxin) 0.25 mg IVP ONCE ONE Stop: 10/20/16 22:01 Diltiazem HCl (Cardizem) 60 mg GT QID [facility] Last Admin: 10/20/16 14:46 Dose: Not Given Famotidine (Pepcid) 20 mg IVP DAILY [facility] Last Admin: 10/20/16 10:15 Dose: 20 mg Heparin Sodium (Porcine) (Heparin) 5,000 units SC Q8 [facility] Stop: 10/23/16 22:00 Last Admin: 10/20/16 16:45 Dose: 5,000 units Dextrose (Dextrose 5% In Water 1000 Ml) 1,000 mls @ 60 mls/hr IV .[id number] [facility] Last Admin: 10/20/16 14:15 Dose: 60 mls/hr Insulin Human Regular (Novolin R) 0 unit SC ACHS [facility] PRN Reason: Protocol Last Admin: 10/20/16 14:47 Dose: Not Given Lisinopril (Zestril) 20 mg NG BID [facility] Last Admin: 10/20/16 14:48 Dose: Not Given Polyethylene Glycol (Miralax) 17 gm PO DAILY [facility] Last Admin: 10/15/16 11:19 Dose: Not Given Potassium Chloride (Potassium Chloride Oral Soln) 40 meq PO DAILY [facility] Last Admin: 10/20/16 14:47 Dose: Not Given Rosuvastatin Calcium (Crestor) 10 mg PO HS [facility] Last Admin: 10/19/16 22:15 Dose: 10 mg Tiotropium [place] (Spiriva) 18 mcg INH RQ24 [facility] Last Admin: 10/20/16 08:11 Dose: Not Given - Labs Labs: 10/19/16 06:11 10/20/16 11:40 PT 12.3 SECONDS (9.7-12.2) H 10/06/16 01:34 INR 1.1 10/06/16 01:34 APTT 28 SECONDS (21-34) 10/18/16 06:00 Assessment and Plan (1) COPD (chronic obstructive pulmonary disease) Status: Chronic (2) Acute [place] Status: Acute (3) Leucocytosis Status: Acute
--- NOTE | 2016-10-20 16:58 | CP.PCM.CON ---
History of Present Illness - History of Present Illness History of Present Illness: pt seen and examined, full consult is dictated #[id number] Past Patient History - Past Medical History & Family History Past Medical History?: No - Past Social History Smoking Status: Current Some Days Smoker - CARDIAC Hx Hypertension: Yes - PULMONARY Hx Chronic Obstructive Pulmonary Disease (COPD): Yes - ENDOCRINE/METABOLIC Hx Hypothyroidism: Yes - MUSCULOSKELETAL/RHEUMATOLOGICAL Hx Falls: No (unknown) - PSYCHIATRIC Hx Substance Use: Yes - SURGICAL HISTORY Hx Surgeries: No (UNOBTAINABLE) - ANESTHESIA Hx Anesthesia: No Hx Anesthesia Reactions: No Hx Malignant Hyperthermia: No Has any member of the family had a problem w/ anesthesia?: No Meds Allergies/Adverse Reactions: Allergies Allergy/AdvReac Type Severity Reaction Status Date / Time No Known Allergies Allergy Verified 09/24/16 15:06 - Medications Medications: Current Medications Aspirin (Aspirin Chewable) 81 mg PO DAILY [facility] Last Admin: 10/20/16 14:46 Dose: Not Given Budesonide (Pulmicort Respules) 0.5 mg INH RQ12 [facility] Last Admin: 10/20/16 08:11 Dose: 0.5 mg Clopidogrel Bisulfate (Plavix) 75 mg PO DAILY [facility] Last Admin: 10/20/16 14:47 Dose: Not Given Digoxin (Lanoxin) 0.25 mg IVP ONCE ONE Stop: 10/20/16 22:01 Diltiazem HCl (Cardizem) 60 mg GT QID [facility] Last Admin: 10/20/16 14:46 Dose: Not Given Famotidine (Pepcid) 20 mg IVP DAILY [facility] Last Admin: 10/20/16 10:15 Dose: 20 mg Heparin Sodium (Porcine) (Heparin) 5,000 units SC Q8 [facility] Stop: 10/23/16 22:00 Last Admin: 10/20/16 16:45 Dose: 5,000 units Dextrose (Dextrose 5% In Water 1000 Ml) 1,000 mls @ 60 mls/hr IV .[id number] [facility] Last Admin: 10/20/16 14:15 Dose: 60 mls/hr Insulin Human Regular (Novolin R) 0 unit SC ACHS [facility] PRN Reason: Protocol Last Admin: 10/20/16 14:47 Dose: Not Given Lisinopril (Zestril) 20 mg NG BID [facility] Last Admin: 10/20/16 14:48 Dose: Not Given Polyethylene Glycol (Miralax) 17 gm PO DAILY [facility] Last Admin: 10/15/16 11:19 Dose: Not Given Potassium Chloride (Potassium Chloride Oral Soln) 40 meq PO DAILY [facility] Last Admin: 10/20/16 14:47 Dose: Not Given Rosuvastatin Calcium (Crestor) 10 mg PO HS [facility] Last Admin: 10/19/16 22:15 Dose: 10 mg Tiotropium [place] (Spiriva) 18 mcg INH RQ24 [facility] Last Admin: 10/20/16 08:11 Dose: Not Given Results - Vital Signs Recent Vital Signs: Last Vital Signs Temp 97.5 F L 10/20/16 15:45 Pulse 126 H 10/20/16 15:45 Resp 20 10/20/16 15:45 BP 146/72 10/20/16 15:45 Pulse Ox 97 10/20/16 15:45 - Labs Result Diagrams: 10/19/16 06:11 10/20/16 11:40 Labs: Laboratory Results - last 24 hr 10/19/16 10/20/16 10/20/16 21:47 06:19 11:19 Sodium Potassium Chloride Carbon Dioxide Anion Gap BUN Creatinine Est GFR ( Amer) Est GFR (Non-Af Amer) POC Glucose (mg/dL) 98 82 91 Random Glucose Calcium Total Bilirubin AST ALT Alkaline Phosphatase Total Protein Albumin Globulin Albumin/Globulin Ratio 10/20/16 10/20/16 11:40 16:29 Sodium 155 H Potassium 3.2 L Chloride 123 H Carbon Dioxide 21 L Anion Gap 14 BUN 46 H Creatinine 2.2 H Est GFR ( Amer) 26 Est GFR (Non-Af Amer) 21 POC Glucose (mg/dL) 149 H Random Glucose 79 Calcium 8.0 L Total Bilirubin 0.5 AST 27 ALT 48 Alkaline Phosphatase 49 Total Protein 4.5 L Albumin 2.2 L Globulin 2.3 Albumin/Globulin Ratio 0.9 L
[2016-10-20 21:44] VITALS: PULSE 78
[2016-10-21 07:26] LABS: POTASSIUM 3.1 mmol/L (3.6-5.2)
[2016-10-21 07:28] LABS: ALB/GLOB RATIO 1.1 (1.0-2.1); BILIRUBIN,TOTAL 0.5 mg/dL (0.2-1.3); TOTAL PROTEIN 4.5 g/dL (6.3-8.3)
[2016-10-21 07:29] LABS: CALCIUM 7.7 mg/dl (8.6-10.4)
--- NOTE | 2016-10-21 07:33 | CON ---
DATE: 10/20/2016 LOCATION: The patient is located in room 669, bed A. REQUESTING PHYSICIAN: Dr. Gianni Pace. REASON FOR RENAL CONSULTATION: Hypernatremia, acute renal failure, and hypokalemia. HISTORY OF PRESENT ILLNESS: The patient is an 86-year-old elderly female with a past medical history significant for hypertension, COPD, hypothyroidism, smoker, and AFib, who was initially admitted with altered mental status and subsequently patient was intubated, status post admission to ICU, and status post thoracentesis on 10/14 on left side, draining about 350 mL , and status post extubation. Now patient is on medical floor. Renal consultation is requested for worsening serum sodium and increased BUN and creatinine. The patient is a poor historian, very uncooperative. Does not want to take anything by mouth and also wants to take off the Venodyne boots, and refusing p.o. intake. The patient also has a Antony catheter and also rectal tube for diarrhea. The patient is not in acute distress, denies any pain. He denies any chest pain, denies any shortness of breath. PAST MEDICAL HISTORY: Is significant for: Hypertension, hypothyroidism, COPD. PAST SURGICAL HISTORY: Denies. ALLERGIES: No known drug allergies. CURRENT MEDICATIONS: Include as follows: Aspirin 81 mg daily, Cardizem 60 mg q.i.d., Crestor 10 mg at bedtime, IV fluids D5W at 60 mL per hour, subcutaneous heparin 5000 q. 8 hours, digoxin 0.25 mg IV x 1 today, and Novolin R for sliding scale, Pepcid 20 mg IV daily, Plavix 75 mg daily and KCl 40 mEq p.o. daily, Pulmicort 0.5 mg inhaler q. 12 hours, and Spiriva 18 mcg q. 24 hours. FAMILY HISTORY: Not significant. REVIEW OF SYSTEMS: Significant for altered mental status on admission, now with decreased p.o. intake and diarrhea. All other review of systems are reviewed and are negative. PHYSICAL EXAMINATION: VITAL SIGNS: Blood pressure 146/72, pulse 126, respirations 20, temperature 97.5, saturation 97%, height 5 feet 2 inches and weight is 171 pounds. GENERAL: The patient is an 86-year-old elderly female, moderately built, moderately nourished, not in acute distress. HEENT: Pupils normal reactive to light and accommodation. Conjunctivae pink. Sclerae anicteric. Tongue is dry. NECK: Trachea is midline. No thyroid enlargement. LUNGS: Symmetric on both sides. Bilateral breath sounds present. No crackles. CARDIOVASCULAR: [place] at the fifth intercostal space midclavicular line. S1, S2 audible, tachycardic, irregularly irregular. ABDOMEN: The patient has ecchymosis on the right flank Abdomen is soft, tympanic. No guarding, no rigidity. No hepatosplenomegaly. CENTRAL NERVOUS SYSTEM: The patient is awake, following commands, oriented x 2. Cranial nerves II through XII grossly intact. Sensory and motor system is within normal limits. EXTREMITIES: No cyanosis, no clubbing, no edema. LABORATORY DATA: Include as follows: As of 10/20/2016, sodium 155, potassium 3.2, chloride 123, CO2 of 21, and anion gap is 14, BUN 46, creatinine 2.2, glucose 91, calcium 8.0. Total bili 0.5, AST 27, ALT 48, alkaline phosphatase 49, total protein 5.5. Albumin is 2.2. As of 10/19, sodium is 151. As of 10/18, sodium is 150, potassium 2.8. As of 10/17, sodium is 149 and as of 10/10/2016, sodium is 146, BUN 31, creatinine 1.3. As of 10/05/2016, sodium 146, BUN 35, creatinine 1.1. As of 10/19/2016, WBC 8.2, hemoglobin 9.7, hematocrit is 29.9, platelets 120. As of 10/14 H and H 9.1/27.8. As of 10/08/2016, hemoglobin is 11.9, hematocrit is 38. As of 10/09 H and H 9.6/29.3. As of 09/23/2016 WBC 8.7, hemoglobin 16.2, hematocrit is 49.1. As of 09/28/2016. WBC 8, hemoglobin 13.6, hematocrit is 41, platelets 187. OTHER LABORATORY DATA: Blood culture as of 09/23/2016, no growth after 5 days x 2 and MRSA screening was negative and urine culture was negative. As of 10/15, from body fluid cultures negative. Thoracentesis pleural fluid. Abdominal x-ray: Normal bowel gas pattern as of 10/20/2016. Duplex scan of the lower extremities as of 09/19/2016; Impression: Right no evidence of deep or superficial vein thrombosis of the right lower extremity, normal wall function noted on the right side. Left side: No evidence of deep or superficial vein thrombosis of the left lower extremity. CT of the chest, abdomen and pelvis as of 10/15/2016; Impression: Tubes and catheters as described, bilateral pleural effusions with partial atelectasis of both lower lobes and mild compressive atelectasis in the upper lobes, cardiomegaly and avascular disease, bilateral rib fractures. Nondisplaced fracture of the right 5th, 6th, and 7th ribs. There are minimally displaced fracture of the left 3rd, 4th, and 5th, and 10th ribs. There is compression fracture of T8. There is vertebroplasty at T12. There are degenerative changes in the osseous structures. Soft tissues unremarkable. As of 10/06/2016, CT of the abdomen and pelvis; Impression: Cholelithiasis and unilateral left kidney with multiple large probable cyst, left adrenal gland thickening, suspect right adrenal gland mass, focal probable fluid within the right pericolic gutter, moderate sized bilateral pleural effusions and associated consolidation, trace pericardial effusion. Mesenteric and ____ adenopathy, diffuse, difficult to assess due to lack of IV contrast. Right kidney is absent, multiple large left probable renal cyst measuring up to 10.[address] of the abdomen and pelvis as of 09/29/2016, the right kidney is not identified in the right renal fossa. There are multiple large simple cysts in the left kidney. Impression: Cholelithiasis without CT evidence of acute cholecystitis. Colonic distention with air fluid levels, which may represent ileus, or pseudoobstruction, no definite evidence of mass or colitis. Mild sigmoid diverticulosis without CT evidence of acute diverticulitis, several large simple cysts in the left kidney, nonvisualization of the right kidney, mild ascites and moderate bilateral pleural effusions. SUMMARY: The patient is an 86-year-old elderly female with a history of hypertension, hyperlipidemia, COPD, hypothyroidism who was admitted initially with altered mental status, and intubated on admission, status post admission to ICU and subsequently the patient was extubated and status post left thoracentesis on 10/14/2016 and drained about 350 mL. ____ subsequently transferred to medical floor and CT scan showed absent right kidney with right renal fossa and with diarrhea and increase his serum sodium, low potassium and increased BUN and creatinine. 1. Hypernatremia. 2. Acute renal failure, picture consistent with prerenal. 3. Anemia, worsening since admission. 4. Thrombocytopenia. 5. Hypokalemia. 6. Hypernatremia secondary to intravascular volume depletion. 7. Left kidney multiple renal cysts. 8. Atrial fibrillation on Cardizem 60 mg by G-tube q.i.d. The patient is refusing to take the medicine by mouth. PLAN: We will continue IV fluids D5W at 60 mL per hour. I agree with potassium supplement. Follow up magnesium levels and also we will check urine electrolytes, urine sodium, potassium, chloride, and urine osmolality and also check stool for repeat C. diff, and stool for culture and leukocytes. Encouraged p.o. intake. We will follow with you. Thank you for allowing me to participate in your patient's care. Overall prognosis is guarded. Ann Garzon MD cc: [id number] TT: 10/21/2016 06:29:15 Confirmation # [id number] Dictation # [id number] taz 10/21/2016 06:33:40 LORAINE
[2016-10-21] MEDS: Budesonide 0.5 mg/2 ml Inhal Susp UD INH SCH ×2 (07:37→20:15)
[2016-10-21] MEDS: Tiotropium 18 mcg Cap For Inhalation INH SCH (07:38)
[2016-10-21] MEDS: (Novolin R) Insulin Human Regular 100 units/ml vial SC SCH ×4 (07:42→21:37)
[2016-10-21] MEDS: Potassium Chloride 20 mEq/15 ml LIQ UD PO SCH (10:08)
--- NOTE | 2016-10-21 14:18 | CP.PCM.PN ---
Subjective - Date & Time of Evaluation Date of Evaluation: 10/21/16 Time of Evaluation: 11:00 - Subjective Subjective: Patient was seen and examined at bedside, no acute distress and no acute events overnight as per nursing reports. The pt appears more alert today and responsive , she is able to answer questions and appears to be less confused. Pt still reports shortness of breath. At per nursing the patient is still refusing to take any oral medications. Objective - Vital Signs/Intake and Output Vital Signs (last 24 hours): Temp Pulse Resp BP Pulse Ox 97.2 F L 93 H 20 147/83 94 L 10/21/16 07:00 10/21/16 07:00 10/21/16 07:00 10/21/16 07:00 10/21/16 07:00 Intake and Output: 10/21/16 10/21/16 06:59 18:59 Intake Total 930 Output Total 1825 Balance -895 - Medications Medications: Current Medications Aspirin (Aspirin Chewable) 81 mg PO DAILY [facility] Last Admin: 10/21/16 10:01 Dose: 81 mg Budesonide (Pulmicort Respules) 0.5 mg INH RQ12 [facility] Last Admin: 10/21/16 07:37 Dose: 0.5 mg Clopidogrel Bisulfate (Plavix) 75 mg PO DAILY [facility] Last Admin: 10/21/16 10:01 Dose: 75 mg Diltiazem HCl (Cardizem) 60 mg GT QID [facility] Last Admin: 10/21/16 13:36 Dose: Not Given Famotidine (Pepcid) 20 mg IVP DAILY [facility] Last Admin: 10/21/16 10:08 Dose: Not Given Heparin Sodium (Porcine) (Heparin) 5,000 units SC Q8 [facility] Stop: 10/23/16 22:00 Last Admin: 10/21/16 13:33 Dose: 5,000 units Dextrose (Dextrose 5% In Water 1000 Ml) 1,000 mls @ 60 mls/hr IV .[id number] [facility] Last Admin: 10/20/16 14:15 Dose: 60 mls/hr Insulin Human Regular (Novolin R) 0 unit SC ACHS [facility] PRN Reason: Protocol Last Admin: 10/21/16 11:34 Dose: Not Given Polyethylene Glycol (Miralax) 17 gm PO DAILY [facility] Last Admin: 10/15/16 11:19 Dose: Not Given Potassium Chloride (Potassium Chloride Oral Soln) 40 meq PO DAILY [facility] Last Admin: 10/21/16 10:08 Dose: Not Given Rosuvastatin Calcium (Crestor) 10 mg PO HS [facility] Last Admin: 10/20/16 21:43 Dose: 10 mg Tiotropium [place] (Spiriva) 18 mcg INH RQ24 [facility] Last Admin: 10/21/16 07:38 Dose: Not Given - Labs Labs: 10/19/16 06:11 10/21/16 06:58 PT 12.3 SECONDS (9.7-12.2) H 10/06/16 01:34 INR 1.1 10/06/16 01:34 APTT 28 SECONDS (21-34) 10/18/16 06:00 Assessment and Plan (1) COPD (chronic obstructive pulmonary disease) Assessment & Plan: Pt to continue respiratory treatments Mental status improving Continue to monitor for worsening respiratory symptoms Status: Chronic (2) Acute HI Status: Acute (3) Leucocytosis Status: Acute
--- NOTE | 2016-10-21 15:14 | CP.PCM.PN ---
Subjective - Date & Time of Evaluation Date of Evaluation: 10/21/16 Time of Evaluation: 15:12 - Subjective Subjective: confused,refuses to take po meds.labs,pumonary & nepho f/u noted.diss with family. Objective - Vital Signs/Intake and Output Vital Signs (last 24 hours): Temp Pulse Resp BP Pulse Ox 97.2 F L 93 H 20 147/83 94 L 10/21/16 07:00 10/21/16 07:00 10/21/16 07:00 10/21/16 07:00 10/21/16 07:00 Intake and Output: 10/21/16 10/21/16 06:59 18:59 Intake Total 930 Output Total 1825 500 Balance -895 -500 - Medications Medications: Current Medications Aspirin (Aspirin Chewable) 81 mg PO DAILY [facility] Last Admin: 10/21/16 10:01 Dose: 81 mg Budesonide (Pulmicort Respules) 0.5 mg INH RQ12 [facility] Last Admin: 10/21/16 07:37 Dose: 0.5 mg Clopidogrel Bisulfate (Plavix) 75 mg PO DAILY [facility] Last Admin: 10/21/16 10:01 Dose: 75 mg Diltiazem HCl (Cardizem) 60 mg GT QID [facility] Last Admin: 10/21/16 13:36 Dose: Not Given Famotidine (Pepcid) 20 mg IVP DAILY [facility] Last Admin: 10/21/16 10:08 Dose: Not Given Heparin Sodium (Porcine) (Heparin) 5,000 units SC Q8 [facility] Stop: 10/23/16 22:00 Last Admin: 10/21/16 13:33 Dose: 5,000 units Dextrose (Dextrose 5% In Water 1000 Ml) 1,000 mls @ 60 mls/hr IV .[id number] [facility] Last Admin: 10/20/16 14:15 Dose: 60 mls/hr Insulin Human Regular (Novolin R) 0 unit SC ACHS [facility] PRN Reason: Protocol Last Admin: 10/21/16 11:34 Dose: Not Given Polyethylene Glycol (Miralax) 17 gm PO DAILY [facility] Last Admin: 10/15/16 11:19 Dose: Not Given Potassium Chloride (Potassium Chloride Oral Soln) 40 meq PO DAILY [facility] Last Admin: 10/21/16 10:08 Dose: Not Given Rosuvastatin Calcium (Crestor) 10 mg PO HS [facility] Last Admin: 10/20/16 21:43 Dose: 10 mg Tiotropium [place] (Spiriva) 18 mcg INH RQ24 [facility] Last Admin: 10/21/16 07:38 Dose: Not Given - Labs Labs: 10/19/16 06:11 10/21/16 06:58 PT 12.3 SECONDS (9.7-12.2) H 10/06/16 01:34 INR 1.1 10/06/16 01:34 APTT 28 SECONDS (21-34) 10/18/16 06:00 - Constitutional Appears: No Acute Distress, Confused - Head Exam Head Exam: NORMOCEPHALIC - Eye Exam Eye Exam: Normal appearance - Neck Exam Neck Exam: Normal Inspection - Respiratory Exam Respiratory Exam: Rhonchi - Cardiovascular Exam Cardiovascular Exam: REGULAR RHYTHM, Murmur - GI/Abdominal Exam GI & Abdominal Exam: Soft - Extremities Exam Extremities Exam: Pedal Edema - Neurological Exam Neurological Exam: Awake Assessment and Plan - Assessment and Plan (Free Text) Assessment: na is better.k is 3.1 needs peg & picc line.
--- NOTE | 2016-10-21 16:08 | CP.PCM.PN ---
Subjective - Date & Time of Evaluation Date of Evaluation: 10/21/16 Time of Evaluation: 16:05 - Subjective Subjective: CC follow up colon distension " I don't feel well". C/O Dyspnea. No BMs. KUB- normal bowel gas pattern. Confused. Has been refusing to take meds. Objective - Vital Signs/Intake and Output Vital Signs (last 24 hours): Temp Pulse Resp BP Pulse Ox 97.2 F L 93 H 20 147/83 94 L 10/21/16 07:00 10/21/16 07:00 10/21/16 07:00 10/21/16 07:00 10/21/16 07:00 Intake and Output: 10/21/16 10/21/16 06:59 18:59 Intake Total 930 Output Total 1825 500 Balance -895 -500 - Medications Medications: Current Medications Aspirin (Aspirin Chewable) 81 mg PO DAILY [facility] Last Admin: 10/21/16 10:01 Dose: 81 mg Budesonide (Pulmicort Respules) 0.5 mg INH RQ12 [facility] Last Admin: 10/21/16 07:37 Dose: 0.5 mg Clopidogrel Bisulfate (Plavix) 75 mg PO DAILY [facility] Last Admin: 10/21/16 10:01 Dose: 75 mg Diltiazem HCl (Cardizem) 60 mg GT QID [facility] Last Admin: 10/21/16 13:36 Dose: Not Given Famotidine (Pepcid) 20 mg IVP DAILY [facility] Last Admin: 10/21/16 10:08 Dose: Not Given Heparin Sodium (Porcine) (Heparin) 5,000 units SC Q8 [facility] Stop: 10/23/16 22:00 Last Admin: 10/21/16 13:33 Dose: 5,000 units Dextrose (Dextrose 5% In Water 1000 Ml) 1,000 mls @ 60 mls/hr IV .[id number] [facility] Last Admin: 10/20/16 14:15 Dose: 60 mls/hr Insulin Human Regular (Novolin R) 0 unit SC ACHS [facility] PRN Reason: Protocol Last Admin: 10/21/16 11:34 Dose: Not Given Polyethylene Glycol (Miralax) 17 gm PO DAILY [facility] Last Admin: 10/15/16 11:19 Dose: Not Given Potassium Chloride (Potassium Chloride Oral Soln) 40 meq PO DAILY [facility] Last Admin: 10/21/16 10:08 Dose: Not Given Rosuvastatin Calcium (Crestor) 10 mg PO HS [facility] Last Admin: 10/20/16 21:43 Dose: 10 mg Tiotropium [place] (Spiriva) 18 mcg INH RQ24 [facility] Last Admin: 10/21/16 07:38 Dose: Not Given - Labs Labs: 10/19/16 06:11 10/21/16 06:58 PT 12.3 SECONDS (9.7-12.2) H 10/06/16 01:34 INR 1.1 10/06/16 01:34 APTT 28 SECONDS (21-34) 10/18/16 06:00 - Constitutional Appears: No Acute Distress, Chronically Ill - Eye Exam Eye Exam: absent: Scleral icterus - Respiratory Exam Respiratory Exam: Decreased Breath Sounds - Cardiovascular Exam Cardiovascular Exam: REGULAR RHYTHM - GI/Abdominal Exam GI & Abdominal Exam: Soft. absent: Distended, Tenderness, Rebound Assessment and Plan (1) Respiratory failure Assessment & Plan: Extubated COPD Status: Chronic (2) Abdominal distension Assessment & Plan: Resolved Status: Acute (3) Confusion Assessment & Plan: Refuses meds. Recommend NG tube if needed. PEG may be needed, but appears to be high pulmonary risk for procedure Status: Acute
--- NOTE | 2016-10-21 19:27 | CP.PCM.PN ---
Subjective - Date & Time of Evaluation Date of Evaluation: 10/21/16 Time of Evaluation: 19:25 - Subjective Subjective: pt seen and examined, follow up consult is dictated # [id number] Objective - Vital Signs/Intake and Output Vital Signs (last 24 hours): Temp Pulse Resp BP Pulse Ox 97.1 F L 105 H 22 151/76 H 95 10/21/16 16:00 10/21/16 16:00 10/21/16 16:00 10/21/16 16:00 10/21/16 16:00 Intake and Output: 10/21/16 10/22/16 18:59 06:59 Output Total 500 Balance -500 - Medications Medications: Current Medications Aspirin (Aspirin Chewable) 81 mg PO DAILY [facility] Last Admin: 10/21/16 10:01 Dose: 81 mg Budesonide (Pulmicort Respules) 0.5 mg INH RQ12 [facility] Last Admin: 10/21/16 07:37 Dose: 0.5 mg Clopidogrel Bisulfate (Plavix) 75 mg PO DAILY [facility] Last Admin: 10/21/16 10:01 Dose: 75 mg Diltiazem HCl (Cardizem) 60 mg GT QID [facility] Last Admin: 10/21/16 18:01 Dose: Not Given Famotidine (Pepcid) 20 mg IVP DAILY [facility] Last Admin: 10/21/16 10:08 Dose: Not Given Heparin Sodium (Porcine) (Heparin) 5,000 units SC Q8 [facility] Stop: 10/23/16 22:00 Last Admin: 10/21/16 13:33 Dose: 5,000 units Dextrose (Dextrose 5% In Water 1000 Ml) 1,000 mls @ 60 mls/hr IV .[id number] [facility] Last Admin: 10/20/16 14:15 Dose: 60 mls/hr Insulin Human Regular (Novolin R) 0 unit SC ACHS [facility] PRN Reason: Protocol Last Admin: 10/21/16 17:13 Dose: Not Given Polyethylene Glycol (Miralax) 17 gm PO DAILY [facility] Last Admin: 10/15/16 11:19 Dose: Not Given Potassium Chloride (Potassium Chloride Oral Soln) 40 meq PO DAILY [facility] Last Admin: 10/21/16 10:08 Dose: Not Given Rosuvastatin Calcium (Crestor) 10 mg PO HS [facility] Last Admin: 10/20/16 21:43 Dose: 10 mg Tiotropium [place] (Spiriva) 18 mcg INH RQ24 [facility] Last Admin: 10/21/16 07:38 Dose: Not Given - Labs Labs: 10/19/16 06:11 10/21/16 06:58 PT 12.3 SECONDS (9.7-12.2) H 10/06/16 01:34 INR 1.1 10/06/16 01:34 APTT 28 SECONDS (21-34) 10/18/16 06:00
[2016-10-21] MEDS ORDERED: Potassium Chloride 20 mEq 100 ML IVPB ONE (19:32)
--- NOTE | 2016-10-22 01:53 | PN ---
DATE: 10/21/2016 REQUESTING PHYSICIAN: Dr. Gianni Pace. REASON FOR RENAL CONSULTATION: Hypernatremia, acute renal failure, and hypokalemia. HISTORY OF PRESENT ILLNESS: The patient is an 86-year-old elderly female with a history of hypertension, hyperlipidemia, hypothyroidism, COPD, who was admitted with altered mental status. Subsequently the patient was intubated and admitted to ICU status post thoracentesis on the left side and drained about 350 mL of fluid. Subsequently extubated and the patient is on the floor with AFib. The patient is refusing IV fluids and IV medications and pulling out the IV line. The patient is not in acute distress. PHYSICAL EXAMINATION: VITAL SIGNS: This afternoon, blood pressure 151/76, pulse 105, respirations 22 , temperature 97.1, saturation 95%, height 5 feet 2 inches and weight is 171 pounds. GENERAL: The patient is an 82-year-old elderly female, not in acute distress. HEENT: Pupils normal and reactive to light and accommodation. Conjunctivae pink. Sclerae anicteric. Tongue is dry. NECK: Trachea is midline. LUNGS: Symmetric and bilateral breath sounds present. No crackles. CARDIOVASCULAR: [place] in the fifth intercostal space midclavicular line. S1 and S2 audible, irregularly irregular. ABDOMEN: Normal in appearance, soft, tympanic. No guarding. No rigidity. No hepatosplenomegaly. CENTRAL NERVOUS SYSTEM: The patient is awake, oriented x 2. Cranial nerves II- XII grossly intact. Sensory and motor system is within normal limits. EXTREMITIES: No cyanosis. No clubbing. No edema. CURRENT MEDICATIONS INCLUDE: As follows: Pulmicort, Spiriva, Plavix, Pepcid, Novolin R for sliding scale, MiraLax, subQ heparin 5,000 q. 8 hours, Crestor, Cardizem, and aspirin. The patient is not taking any p.o. medications. LABORATORY DATA INCLUDE: As follows: As of 10/21/2016, sodium 147, potassium 3.1, chloride 114, CO2 21, BUN 45, creatinine 2.1, glucose 101, calcium 7.7, total bilirubin 0.3. AST 30, ALT 36, total protein 4.5, albumin is 2.4. Urine osmolality is 326. Urine sodium is 118. Stool for leukocytes are negative as of 10/20/2016. SUMMARY: The patient is an 86-year-old elderly female with history of hypertension, hyperlipidemia, COPD, AFib, status post extubation with increased BUN and creatinine, increased serum sodium and low potassium 1. Hypernatremia secondary to intravascular volume depletion secondary to diarrhea. 2. Hypokalemia. 3. Acute renal failure secondary to intravascular volume depletion. PLAN: Continue D5W and supplement KCl at 20 mEq IV piggyback x 1. Try to place IV line again. We will follow with you. Thank you for allowing me to participate in your patient's care. Overall, prognosis is very poor. Ann Garzon MD cc: [id number] TT: 10/22/2016 01:52:01 Confirmation # [id number] Dictation # [id number] [id number]
--- NOTE | 2016-10-22 03:32 | CP.PCM.PN ---
Subjective - Date & Time of Evaluation Date of Evaluation: 10/22/16 Time of Evaluation: 03:23 - Subjective Subjective: House Doctor Note: I was called to assess patient at 3:10 am after nursing found fresh blood from Perez cath site. As per nursing, patient had been pulling on it earlier despite having mittens on. Nursing reports bleeding occurred yesterday as well, but stopped on its own. On my assessment patient is confused and does not tell me if she is in pain. She is able to speak in full sentences and verbalizes being annoyed that I am asking her questions. She does report "not feeling good". Perez output is of clear yellow urine. There is copious amounts of fresh blood around perez insertion site. Vital signs: HR 110, BP 128/75, O2 89% on 3 L NC. GEN: Labored breathing. Confused. Pulm: coarse breath sounds. Cardio: Tachycardic. Abdomen: soft, NT, ND. :Perez with clear yellow urine. Pooling of fresh blood around perez insertion site. Skin: pale and dry. Discussed with hospitalist and agreed to remove perez 2/2 likely trauma. CBC ordered. Placed patient on NRB at 10 L, O2 sat improved to high 90's. Patient with history of rapid Afib and has been refusing Cardizem PO. Will order one stat dose of Cardizem 5 mg IVP for better rate control. Will reassess for further bleeding. Urology consult recommended. Attending will be notified as per nursing. Objective - Vital Signs/Intake and Output Vital Signs (last 24 hours): Temp Pulse Resp BP Pulse Ox 97.3 F L 105 H 20 159/77 H 94 L 10/21/16 23:35 10/21/16 23:37 10/21/16 23:35 10/21/16 23:35 10/21/16 23:35 Intake and Output: 10/21/16 10/22/16 18:59 06:59 Output Total 500 650 Balance -500 -650 - Medications Medications: Current Medications Aspirin (Aspirin Chewable) 81 mg PO DAILY [facility] Last Admin: 10/21/16 10:01 Dose: 81 mg Budesonide (Pulmicort Respules) 0.5 mg INH RQ12 [facility] Last Admin: 10/21/16 20:15 Dose: 0.5 mg Clopidogrel Bisulfate (Plavix) 75 mg PO DAILY [facility] Last Admin: 10/21/16 10:01 Dose: 75 mg Diltiazem HCl (Cardizem) 60 mg GT QID [facility] Last Admin: 10/21/16 21:36 Dose: Not Given Famotidine (Pepcid) 20 mg IVP DAILY [facility] Last Admin: 10/21/16 10:08 Dose: Not Given Dextrose (Dextrose 5% In Water 1000 Ml) 1,000 mls @ 60 mls/hr IV .[id number] [facility] Last Admin: 10/21/16 06:00 Dose: 60 mls/hr Insulin Human Regular (Novolin R) 0 unit SC ACHS [facility] PRN Reason: Protocol Last Admin: 10/21/16 21:37 Dose: Not Given Polyethylene Glycol (Miralax) 17 gm PO DAILY [facility] Last Admin: 10/15/16 11:19 Dose: Not Given Potassium Chloride (Potassium Chloride Oral Soln) 40 meq PO DAILY [facility] Last Admin: 10/21/16 10:08 Dose: Not Given Rosuvastatin Calcium (Crestor) 10 mg PO HS [facility] Last Admin: 10/21/16 21:36 Dose: Not Given Tiotropium [place] (Spiriva) 18 mcg INH RQ24 [facility] Last Admin: 10/21/16 07:38 Dose: Not Given - Labs Labs: 10/19/16 06:11 10/21/16 06:58 PT 12.3 SECONDS (9.7-12.2) H 10/06/16 01:34 INR 1.1 10/06/16 01:34 APTT 28 SECONDS (21-34) 10/18/16 06:00
[2016-10-22 04:16] LABS: BASO # 0.1 K/uL (0.0-0.2); EOS % 0.5 % (0.0-4.0); HEMATOCRIT 29.6 % (34.0-47.0); LYMPH # 0.6 K/uL (1.0-4.3); LYMPH % 10.6 % (20.0-40.0); MEAN CELL VOLUME 90.5 fL (81.0-99.0); MEAN CORPUSCULAR HEMOGLOBIN 29.8 pg (27.0-31.0); MEAN PLATELET VOLUME 9.5 fL (7.2-11.7); MONO # 0.3 K/uL (0.0-0.8); MONO % 5.7 % (0.0-10.0); NRBC % 0.1 % (0.0-2.0); RED CELL DISTRIBUTION WIDTH 14.8 % (11.5-14.5); WHITE BLOOD COUNT 6.1 K/uL (4.8-10.8)
[2016-10-22 06:03] LABS: INR 1.2
[2016-10-22] MEDS: (Novolin R) Insulin Human Regular 100 units/ml vial SC SCH ×2 (07:26→13:43)
[2016-10-22] MEDS: Budesonide 0.5 mg/2 ml Inhal Susp UD INH SCH ×2 (07:43→19:30)
[2016-10-22 08:16] LABS: CHLORIDE URINE 124 mmol/L (32-290)
--- NOTE | 2016-10-22 08:21 | CP.PCM.PN ---
Subjective - Date & Time of Evaluation Date of Evaluation: 10/22/16 Time of Evaluation: 08:18 - Subjective Subjective: F/U abdom distention and FTT + hematuria. No RB, melena, fever, chills, hemoptysis, NEWMAN, SZ, tremor Poor p.o. Objective - Vital Signs/Intake and Output Vital Signs (last 24 hours): Temp Pulse Resp BP Pulse Ox 97.3 F L 105 H 20 159/77 H 94 L 10/21/16 23:35 10/21/16 23:37 10/21/16 23:35 10/21/16 23:35 10/21/16 23:35 Intake and Output: 10/22/16 10/22/16 06:59 18:59 Output Total 700 Balance -700 - Medications Medications: Current Medications Aspirin (Aspirin Chewable) 81 mg PO DAILY [facility] Last Admin: 10/21/16 10:01 Dose: 81 mg Budesonide (Pulmicort Respules) 0.5 mg INH RQ12 [facility] Last Admin: 10/22/16 07:43 Dose: 0.5 mg Clopidogrel Bisulfate (Plavix) 75 mg PO DAILY [facility] Last Admin: 10/21/16 10:01 Dose: 75 mg Diltiazem HCl (Cardizem) 60 mg GT QID [facility] Last Admin: 10/21/16 21:36 Dose: Not Given Famotidine (Pepcid) 20 mg IVP DAILY [facility] Last Admin: 10/21/16 10:08 Dose: Not Given Dextrose (Dextrose 5% In Water 1000 Ml) 1,000 mls @ 60 mls/hr IV .[id number] [facility] Last Admin: 10/21/16 06:00 Dose: 60 mls/hr Insulin Human Regular (Novolin R) 0 unit SC ACHS [facility] PRN Reason: Protocol Last Admin: 10/22/16 07:26 Dose: Not Given Polyethylene Glycol (Miralax) 17 gm PO DAILY [facility] Last Admin: 10/15/16 11:19 Dose: Not Given Potassium Chloride (Potassium Chloride Oral Soln) 40 meq PO DAILY [facility] Last Admin: 10/21/16 10:08 Dose: Not Given Rosuvastatin Calcium (Crestor) 10 mg PO HS [facility] Last Admin: 10/21/16 21:36 Dose: Not Given Tiotropium [place] (Spiriva) 18 mcg INH RQ24 [facility] Last Admin: 10/21/16 07:38 Dose: Not Given - Labs Labs: 10/22/16 04:11 10/21/16 06:58 PT 13.8 SECONDS (9.7-12.2) H 10/22/16 05:45 INR 1.2 10/22/16 05:45 APTT 34 SECONDS (21-34) 10/22/16 05:45 - Constitutional Appears: Non-toxic - Neck Exam Neck Exam: absent: Lymphadenopathy - Respiratory Exam Respiratory Exam: Rales - Cardiovascular Exam Cardiovascular Exam: RRR - GI/Abdominal Exam GI & Abdominal Exam: Soft, Normal Bowel Sounds. absent: Tenderness - Extremities Exam Extremities Exam: absent: Calf Tenderness - Neurological Exam Neurological Exam: Awake. absent: Oriented x3 Assessment and Plan (1) Respiratory failure Assessment & Plan: Extubated. Still occ dyspnea Status: Chronic (2) Abdominal distension Assessment & Plan: CLinically improving. CT 10/17 shows severe colon distention, but KUB 10/20 is better. Status: Acute (3) Acute LA Status: Acute (4) Atrial fibrillation Status: Acute (5) Dysphagia Assessment & Plan: Encourage p[.o. intake. Pt is at resp risk for PEG and had recent severe colon distention. Status: Acute (6) Hypernatremia Status: Acute (7) Leucocytosis Status: Acute (8) Anemia Status: Acute (9) Acute renal insufficiency Status: Acute
--- NOTE | 2016-10-22 10:31 | CP.PCM.CON ---
Past Patient History - Past Medical History & Family History Past Medical History?: No - Past Social History Smoking Status: Current Some Days Smoker - CARDIAC Hx Hypertension: Yes - PULMONARY Hx Chronic Obstructive Pulmonary Disease (COPD): Yes - ENDOCRINE/METABOLIC Hx Hypothyroidism: Yes - MUSCULOSKELETAL/RHEUMATOLOGICAL Hx Falls: No (unknown) - PSYCHIATRIC Hx Substance Use: Yes - SURGICAL HISTORY Hx Surgeries: No (UNOBTAINABLE) - ANESTHESIA Hx Anesthesia: No Hx Anesthesia Reactions: No Hx Malignant Hyperthermia: No Has any member of the family had a problem w/ anesthesia?: No Meds Allergies/Adverse Reactions: Allergies Allergy/AdvReac Type Severity Reaction Status Date / Time No Known Allergies Allergy Verified 09/24/16 15:06 - Medications Medications: Current Medications Aspirin (Aspirin Chewable) 81 mg PO DAILY [facility] Last Admin: 10/21/16 10:01 Dose: 81 mg Budesonide (Pulmicort Respules) 0.5 mg INH RQ12 [facility] Last Admin: 10/22/16 07:43 Dose: 0.5 mg Clopidogrel Bisulfate (Plavix) 75 mg PO DAILY [facility] Last Admin: 10/21/16 10:01 Dose: 75 mg Diltiazem HCl (Cardizem) 60 mg GT QID [facility] Last Admin: 10/21/16 21:36 Dose: Not Given Famotidine (Pepcid) 20 mg IVP DAILY [facility] Last Admin: 10/22/16 09:57 Dose: 20 mg Dextrose (Dextrose 5% In Water 1000 Ml) 1,000 mls @ 60 mls/hr IV .[id number] [facility] Last Admin: 10/21/16 06:00 Dose: 60 mls/hr Insulin Human Regular (Novolin R) 0 unit SC ACHS [facility] PRN Reason: Protocol Last Admin: 10/22/16 07:26 Dose: Not Given Polyethylene Glycol (Miralax) 17 gm PO DAILY [facility] Last Admin: 10/15/16 11:19 Dose: Not Given Potassium Chloride (Potassium Chloride Oral Soln) 40 meq PO DAILY [facility] Last Admin: 10/21/16 10:08 Dose: Not Given Rosuvastatin Calcium (Crestor) 10 mg PO HS [facility] Last Admin: 10/21/16 21:36 Dose: Not Given Tiotropium [place] (Spiriva) 18 mcg INH RQ24 [facility] Last Admin: 10/21/16 07:38 Dose: Not Given Results - Vital Signs Recent Vital Signs: Last Vital Signs Temp 97.2 F L 10/22/16 08:23 Pulse 103 H 10/22/16 08:23 Resp 18 10/22/16 08:23 BP 106/67 10/22/16 08:23 Pulse Ox 97 10/22/16 08:23 - Labs Result Diagrams: 10/25/16 06:18 10/25/16 06:18 Labs: Laboratory Results - last 24 hr 10/15/16 10/20/16 10/21/16 16:01 20:57 10:59 WBC RBC Hgb Hct MCV MCH MCHC RDW Plt Count MPV Neut % (Auto) Lymph % (Auto) Stephens % (Auto) Eos % (Auto) Baso % (Auto) Neut # Lymph # Stephens # Eos # Baso # PT INR APTT POC Glucose (mg/dL) 119 H Urine Chloride 124 Fluid Albumin 0.9 10/21/16 10/21/16 10/22/16 16:37 20:56 04:11 WBC 6.1 RBC 3.26 L Hgb 9.7 L Hct 29.6 L MCV 90.5 MCH 29.8 MCHC 33.0 RDW 14.8 H Plt Count 121 L MPV 9.5 Neut % (Auto) 81.2 H Lymph % (Auto) 10.6 L Stephens % (Auto) 5.7 Eos % (Auto) 0.5 Baso % (Auto) 2.0 Neut # 4.9 Lymph # 0.6 L Stephens # 0.3 Eos # 0.0 Baso # 0.1 PT INR APTT POC Glucose (mg/dL) 108 95 Urine Chloride Fluid Albumin 10/22/16 10/22/16 05:45 06:38 WBC RBC Hgb Hct MCV MCH MCHC RDW Plt Count MPV Neut % (Auto) Lymph % (Auto) Stephens % (Auto) Eos % (Auto) Baso % (Auto) Neut # Lymph # Stephens # Eos # Baso # PT 13.8 H INR 1.2 APTT 34 POC Glucose (mg/dL) 127 H Urine Chloride Fluid Albumin Assessment & Plan - Assessment and Plan (Free Text) Assessment: imp: vaginal bleeding hx of resp failure Plan: PLEASE SEE DICTATED REPORT - Date & Time Date: 10/22/16 Time: 10:30
[2016-10-22 11:02] LABS: ABG ALLEN TEST POS; ARTERIAL BLOOD HGB O2 SAT 97.8 % (95.0-98.0); CARBOXYHEMOGLOBIN 2.3 % (0.5-1.5); DRAW SITE LRA; HHB -0.9 % (0.0-5.0); METHEMOGLOBIN 0.8 % (0.0-3.0)
[2016-10-22] MEDS ORDERED: Midazolam 2 MG/2 ML VIAL IVP ONE (11:43)
[2016-10-22] MEDS ORDERED: Sodium Chloride 0.9% 1,000 ML IV ONE (11:45)
[2016-10-22] MEDS ORDERED: Etomidate 20 mg/10ml Inj IV ONE (11:45)
[2016-10-22] MEDS ORDERED: Midazolam 2 MG/2 ML VIAL ONE (11:45)
[2016-10-22] MEDS: Potassium Chloride 20 mEq/15 ml LIQ UD PO SCH (11:56)
[2016-10-22] MEDS ORDERED: Propofol 10 mg/ml Inj (20 ML) IV ONE (12:00)
--- NOTE | 2016-10-22 12:26 | CP.PCM.PN ---
Subjective - Date & Time of Evaluation Date of Evaluation: 10/22/16 Time of Evaluation: 12:23 - Subjective Subjective: events noted.now in icu,reintubated.diss with family & brother.diss also with dr jason. Objective - Vital Signs/Intake and Output Vital Signs (last 24 hours): Temp Pulse Resp BP Pulse Ox 97.2 F L 103 H 18 106/67 97 10/22/16 08:23 10/22/16 08:23 10/22/16 08:23 10/22/16 08:23 10/22/16 08:23 Intake and Output: 10/22/16 10/22/16 06:59 18:59 Output Total 700 Balance -700 - Medications Medications: Current Medications Aspirin (Aspirin Chewable) 81 mg PO DAILY [facility] Last Admin: 10/22/16 11:56 Dose: Not Given Budesonide (Pulmicort Respules) 0.5 mg INH RQ12 [facility] Last Admin: 10/22/16 07:43 Dose: 0.5 mg Clopidogrel Bisulfate (Plavix) 75 mg PO DAILY [facility] Last Admin: 10/22/16 11:56 Dose: Not Given Diltiazem HCl (Cardizem) 60 mg GT QID [facility] Last Admin: 10/22/16 11:56 Dose: Not Given Famotidine (Pepcid) 20 mg IVP DAILY [facility] Last Admin: 10/22/16 09:57 Dose: 20 mg Dextrose (Dextrose 5% In Water 1000 Ml) 1,000 mls @ 60 mls/hr IV .[id number] [facility] Last Admin: 10/21/16 06:00 Dose: 60 mls/hr Propofol (Diprivan) 100 mls @ 2.327 mls/hr IV .Q24H PRN; Protocol; 5 MCG/KG/MIN PRN Reason: TITRATE PER MD ORDER Sodium Chloride (Sodium Chloride 0.9%) 1,000 mls @ 1,000 mls/hr IV .Q1H ONE Stop: 10/22/16 12:44 Insulin Human Regular (Novolin R) 0 unit SC ACHS [facility] PRN Reason: Protocol Last Admin: 10/22/16 07:26 Dose: Not Given Polyethylene Glycol (Miralax) 17 gm PO DAILY [facility] Last Admin: 10/15/16 11:19 Dose: Not Given Potassium Chloride (Potassium Chloride Oral Soln) 40 meq PO DAILY [facility] Last Admin: 10/22/16 11:56 Dose: Not Given Rosuvastatin Calcium (Crestor) 10 mg PO HS [facility] Last Admin: 10/21/16 21:36 Dose: Not Given Tiotropium [place] (Spiriva) 18 mcg INH RQ24 [facility] Last Admin: 10/21/16 07:38 Dose: Not Given - Labs Labs: 10/22/16 04:11 10/21/16 06:58 PT 13.8 SECONDS (9.7-12.2) H 10/22/16 05:45 INR 1.2 10/22/16 05:45 APTT 34 SECONDS (21-34) 10/22/16 05:45 - Constitutional Appears: Chronically Ill - Head Exam Head Exam: NORMOCEPHALIC - Neck Exam Neck Exam: Normal Inspection - Respiratory Exam Respiratory Exam: Rhonchi - Cardiovascular Exam Cardiovascular Exam: REGULAR RHYTHM - GI/Abdominal Exam GI & Abdominal Exam: Soft Assessment and Plan - Assessment and Plan (Free Text) Assessment: now on vent.diss with family re critical condition.poor prognosis.explained re dnr,agrees,both brother & niece. director of graduate admissions consult.probably needs peg & trach
--- NOTE | 2016-10-22 12:41 | CP.PCM.PN ---
Subjective - Date & Time of Evaluation Date of Evaluation: 10/22/16 Time of Evaluation: 10:00 - Subjective Subjective: Patient seen and examined found patient on floor with shallow breathing, lethargic on 100% nonrebreather mask ABG consistent with respiratory and metabolic acidosis Patient transferred to ICU intubated and put on ventilatory support Family signed DNR Seen by OB/GYNfor vaginal bleeding Objective - Vital Signs/Intake and Output Vital Signs (last 24 hours): Temp Pulse Resp BP Pulse Ox 97.2 F L 103 H 18 106/67 97 10/22/16 08:23 10/22/16 08:23 10/22/16 08:23 10/22/16 08:23 10/22/16 08:23 Intake and Output: 10/22/16 10/22/16 06:59 18:59 Output Total 700 Balance -700 - Medications Medications: Current Medications Aspirin (Aspirin Chewable) 81 mg PO DAILY [facility] Last Admin: 10/22/16 11:56 Dose: Not Given Budesonide (Pulmicort Respules) 0.5 mg INH RQ12 [facility] Last Admin: 10/22/16 07:43 Dose: 0.5 mg Clopidogrel Bisulfate (Plavix) 75 mg PO DAILY [facility] Last Admin: 10/22/16 11:56 Dose: Not Given Diltiazem HCl (Cardizem) 60 mg GT QID [facility] Last Admin: 10/22/16 11:56 Dose: Not Given Famotidine (Pepcid) 20 mg IVP DAILY [facility] Last Admin: 10/22/16 09:57 Dose: 20 mg Dextrose (Dextrose 5% In Water 1000 Ml) 1,000 mls @ 60 mls/hr IV .[id number] [facility] Last Admin: 10/21/16 06:00 Dose: 60 mls/hr Propofol (Diprivan) 100 mls @ 2.327 mls/hr IV .Q24H PRN; Protocol; 5 MCG/KG/MIN PRN Reason: TITRATE PER MD ORDER Sodium Chloride (Sodium Chloride 0.9%) 1,000 mls @ 1,000 mls/hr IV .Q1H ONE Stop: 10/22/16 12:44 Insulin Human Regular (Novolin R) 0 unit SC ACHS [facility] PRN Reason: Protocol Last Admin: 10/22/16 07:26 Dose: Not Given Polyethylene Glycol (Miralax) 17 gm PO DAILY [facility] Last Admin: 10/15/16 11:19 Dose: Not Given Potassium Chloride (Potassium Chloride Oral Soln) 40 meq PO DAILY [facility] Last Admin: 10/22/16 11:56 Dose: Not Given Rosuvastatin Calcium (Crestor) 10 mg PO HS [facility] Last Admin: 10/21/16 21:36 Dose: Not Given Tiotropium [place] (Spiriva) 18 mcg INH RQ24 [facility] Last Admin: 10/21/16 07:38 Dose: Not Given - Labs Labs: 10/22/16 04:11 10/21/16 06:58 PT 13.8 SECONDS (9.7-12.2) H 10/22/16 05:45 INR 1.2 10/22/16 05:45 APTT 34 SECONDS (21-34) 10/22/16 05:45 - Head Exam Head Exam: ATRAUMATIC, NORMOCEPHALIC - ENT Exam ENT Exam: Mucous Membranes Dry - Neck Exam Neck Exam: Normal Inspection - Respiratory Exam Respiratory Exam: Decreased Breath Sounds - Cardiovascular Exam Cardiovascular Exam: REGULAR RHYTHM - GI/Abdominal Exam GI & Abdominal Exam: Soft, Normal Bowel Sounds Assessment and Plan (1) Acute respiratory failure with hypoxia and hypercarbia Assessment & Plan: patient intubated and put on ventilatory support follow up ABG and chest x-ray Continue antibiotics, steroids and nebulizer treatment Status: Resolved (2) COPD (chronic obstructive pulmonary disease) Status: Chronic (3) Acute RI Status: Acute (4) Leucocytosis Status: Acute
[2016-10-22] MEDS ORDERED: Lactated Ringer's 1,000 ML IV SCH ×4 (14:00→16:45)
--- NOTE | 2016-10-22 14:06 | CP.PCM.CON ---
History of Present Illness - History of Present Illness History of Present Illness: Palliative consult requested by Doctor Katelynn Chan Reason; Goals o care discussion Patient is a 86 yo female admitted on 09/23/2016 in respiratory distress. Patient found on the floor with shallow breathing. Patient was intubated and admitted for further care. During hospital stay, patient was reintubated x 3, last time being this morning. Patient's family requested end of life care discussion . I met with patient's brother Anthony Mccartney and her niece Felicia. PMH: COPD, HTN, smokes cigarettes since 13 years old Soc. hx: single, has no children, Mr. Mccartney is the oldest brother Alfonso. Hx: unknown Review of Systems - Review of Systems Systems not reviewed;Unavailable: Intubated Past Patient History - Past Medical History & Family History Past Medical History?: No - Past Social History Smoking Status: Current Some Days Smoker - CARDIAC Hx Hypertension: Yes - PULMONARY Hx Chronic Obstructive Pulmonary Disease (COPD): Yes - ENDOCRINE/METABOLIC Hx Hypothyroidism: Yes - MUSCULOSKELETAL/RHEUMATOLOGICAL Hx Falls: No (unknown) - PSYCHIATRIC Hx Substance Use: Yes - SURGICAL HISTORY Hx Surgeries: No (UNOBTAINABLE) - ANESTHESIA Hx Anesthesia: No Hx Anesthesia Reactions: No Hx Malignant Hyperthermia: No Has any member of the family had a problem w/ anesthesia?: No Meds Allergies/Adverse Reactions: Allergies Allergy/AdvReac Type Severity Reaction Status Date / Time No Known Allergies Allergy Verified 09/24/16 15:06 - Medications Medications: Current Medications Aspirin (Aspirin Chewable) 81 mg PO DAILY [facility] Last Admin: 10/22/16 11:56 Dose: Not Given Budesonide (Pulmicort Respules) 0.5 mg INH RQ12 [facility] Last Admin: 10/22/16 07:43 Dose: 0.5 mg Clopidogrel Bisulfate (Plavix) 75 mg PO DAILY [facility] Last Admin: 10/22/16 11:56 Dose: Not Given Diltiazem HCl (Cardizem) 60 mg GT QID [facility] Last Admin: 10/22/16 11:56 Dose: Not Given Famotidine (Pepcid) 20 mg IVP DAILY [facility] Last Admin: 10/22/16 09:57 Dose: 20 mg Dextrose (Dextrose 5% In Water 1000 Ml) 1,000 mls @ 60 mls/hr IV .[id number] [facility] Last Admin: 10/21/16 06:00 Dose: 60 mls/hr Propofol (Diprivan) 100 mls @ 2.327 mls/hr IV .Q24H PRN; Protocol; 5 MCG/KG/MIN PRN Reason: TITRATE PER MD ORDER Lactated Ringer's (Lactated Ringer's) 1,000 mls @ 75 mls/hr IV .[id number] [facility] Insulin Human Regular (Novolin R) 0 unit SC ACHS [facility] PRN Reason: Protocol Last Admin: 10/22/16 13:43 Dose: Not Given Polyethylene Glycol (Miralax) 17 gm PO DAILY [facility] Last Admin: 10/15/16 11:19 Dose: Not Given Potassium Chloride (Potassium Chloride Oral Soln) 40 meq PO DAILY [facility] Last Admin: 10/22/16 11:56 Dose: Not Given Rosuvastatin Calcium (Crestor) 10 mg PO [facility] Last Admin: 10/21/16 21:36 Dose: Not Given Tiotropium [place] (Spiriva) 18 mcg INH RQ24 [facility] Last Admin: 10/21/16 07:38 Dose: Not Given Physical Exam - Constitutional Appears: Chronically Ill - Head Exam Head Exam: ATRAUMATIC - Eye Exam Eye Exam: Normal appearance Pupil Exam: NORMAL ACCOMODATION - ENT Exam ENT Exam: Normal Exam Additional comments: Orally intubated - Neck Exam Neck exam: Positive for: Normal Inspection - Respiratory Exam Additional comments: On MV support - Cardiovascular Exam Cardiovascular Exam: Tachycardia - GI/Abdominal Exam GI & Abdominal Exam: Normal Bowel Sounds Additional comments: stool loose,, rectal pouch in place - Rectal Exam Rectal Exam: Deferred - Extremities Exam Extremities exam: Positive for: normal inspection - Back Exam Back exam: NORMAL INSPECTION - Neurological Exam Neurological exam: Motor Sensory Deficit - Psychiatric Exam Psychiatric exam: Flat Affect - Skin Skin Exam: Pallor Results - Vital Signs Recent Vital Signs: Last Vital Signs Temp 97.2 F L 10/22/16 08:23 Pulse 103 H 10/22/16 08:23 Resp 18 10/22/16 08:23 BP 106/67 10/22/16 08:23 Pulse Ox 97 10/22/16 08:23 - Labs Result Diagrams: 10/22/16 04:11 10/21/16 06:58 Labs: Laboratory Results - last 24 hr 10/15/16 10/20/16 10/21/16 16:01 20:57 16:37 WBC RBC Hgb Hct MCV MCH MCHC RDW Plt Count MPV Neut % (Auto) Lymph % (Auto) Smith % (Auto) Eos % (Auto) Baso % (Auto) Neut # Lymph # Smith # Eos # Baso # PT INR APTT Puncture Site pCO2 pO2 HCO3 ABG pH ABG Total CO2 ABG O2 Saturation ABG Base Excess ABG Hemoglobin ABG Carboxyhemoglobin POC ABG HHb (Measured) ABG Methemoglobin Fish Test A-a O2 Difference Respiratory Index Hgb O2 Saturation Liter Flow FiO2 POC Glucose (mg/dL) 108 Urine Chloride 124 Fluid Albumin 0.9 10/21/16 10/22/16 10/22/16 20:56 04:11 05:45 WBC 6.1 RBC 3.26 L Hgb 9.7 L Hct 29.6 L MCV 90.5 MCH 29.8 MCHC 33.0 RDW 14.8 H Plt Count 121 L MPV 9.5 Neut % (Auto) 81.2 H Lymph % (Auto) 10.6 L Smith % (Auto) 5.7 Eos % (Auto) 0.5 Baso % (Auto) 2.0 Neut # 4.9 Lymph # 0.6 L Smith # 0.3 Eos # 0.0 Baso # 0.1 PT 13.8 H INR 1.2 APTT 34 Puncture Site pCO2 pO2 HCO3 ABG pH ABG Total CO2 ABG O2 Saturation ABG Base Excess ABG Hemoglobin ABG Carboxyhemoglobin POC ABG HHb (Measured) ABG Methemoglobin Fish Test A-a O2 Difference Respiratory Index Hgb O2 Saturation Liter Flow FiO2 POC Glucose (mg/dL) 95 Urine Chloride Fluid Albumin 10/22/16 10/22/16 10/22/16 06:38 10:56 10:57 WBC RBC Hgb Hct MCV MCH MCHC RDW Plt Count MPV Neut % (Auto) Lymph % (Auto) Smith % (Auto) Eos % (Auto) Baso % (Auto) Neut # Lymph # Smith # Eos # Baso # PT INR APTT Puncture Site Lra pCO2 52 H pO2 161 H HCO3 20.6 L ABG pH 7.23 L ABG Total CO2 23.4 ABG O2 Saturation 100.9 H ABG Base Excess -5.6 L ABG Hemoglobin 8.4 L ABG Carboxyhemoglobin 2.3 H POC ABG HHb (Measured) -0.9 L ABG Methemoglobin 0.8 Fish Test Pos A-a O2 Difference 487.0 Respiratory Index 3.0 Hgb O2 Saturation 97.8 Liter Flow 12.0 FiO2 100.0 POC Glucose (mg/dL) 127 H 161 H Urine Chloride Fluid Albumin 10/22/16 12:54 WBC RBC Hgb Hct MCV MCH MCHC RDW Plt Count MPV Neut % (Auto) Lymph % (Auto) Smith % (Auto) Eos % (Auto) Baso % (Auto) Neut # Lymph # Smith # Eos # Baso # PT INR APTT Puncture Site pCO2 pO2 HCO3 ABG pH ABG Total CO2 ABG O2 Saturation ABG Base Excess ABG Hemoglobin ABG Carboxyhemoglobin POC ABG HHb (Measured) ABG Methemoglobin Fish Test A-a O2 Difference Respiratory Index Hgb O2 Saturation Liter Flow FiO2 POC Glucose (mg/dL) 140 H Urine Chloride Fluid Albumin Assessment & Plan - Assessment and Plan (Free Text) Assessment: Code status Full Code. no advance directive on chart. PPS 10%. ROS unobtainable from patient due to condition. I reviewed medical records, all diagnostic studies, examined patient in the bed and had extensive end of life care discussion with family at bed side. Total time spent, 70 min. Patient is alert, lethargic and is responding to painful tactile stimuli only. This morning patient was reintubated by the 3 rd time due to respiratory distress. patient's brother and niece were surprised to find patient reintubated this morning, after visiting her on Friday when she " was doing well" as per her brother. reviewed current clinical presentation and goals of care with family. patient' s brother, Mr Ellis stated that if patient could talk, she would be against all these aggressive measures applied to support her life. Niece Felicia agreed. Family believes that natural would be what patient would of wanted if she could talk. I suggested that at this point, after 3 re intubations in one hospital stay family was to chose between quality of life and life supported by aggressive measures such as trach and PEG. Both, brother and niece were very specific and firm choosing natural . Family is to bring in two other patient's sisters and asked for weaning to take place on . I assisted them in completing POLST form. Family choose DNR/DNI. This was shared with Doctor zbigniew ICU team. Impression * This is a terminally ill patient, not tolerating weaning trials * Patient's wishes for end of life care are not known * The oldest brother and niece advocate for natural * POLST completed, DNR/DNI signed * Family asking for extubation to take place on morning Suggestion * Agree with DNR/DNI * Pastoral visits for spiritual support ( [employer] called) * Plan extubation for to allow enough time for extended family to say final Good Bye Thank you for consulting Palliative Care.
[2016-10-22 14:15] LABS: BASO % 0.3 % (0.0-2.0); EOS % 0.1 % (0.0-4.0); HEMATOCRIT 25.6 % (34.0-47.0); LYMPH # 0.6 K/uL (1.0-4.3); LYMPH % 11.1 % (20.0-40.0); MEAN CELL VOLUME 90.4 fL (81.0-99.0); MEAN CORPUSCULAR HEMOGLOBIN 29.5 pg (27.0-31.0); MEAN CORPUSCULAR HGB CONC 32.6 g/dL (33.0-37.0); MEAN PLATELET VOLUME 9.5 fL (7.2-11.7); MONO # 0.2 K/uL (0.0-0.8); NRBC % 0.1 % (0.0-2.0); RED CELL DISTRIBUTION WIDTH 15.6 % (11.5-14.5); WHITE BLOOD COUNT 5.2 K/uL (4.8-10.8)
[2016-10-22 14:22] LABS: POTASSIUM 3.3 mmol/L (3.6-5.2)
--- NOTE | 2016-10-22 14:23 | RAD ---
HISTORY: intubation COMPARISON: 10/19/2016 FINDINGS: LUNGS: Worsening now large loculated left pleural effusion with near complete opacification of the left susie thorax. Patchy right basilar airspace opacity with small right pleural effusion. Endotracheal tube extending into the mid thoracic trachea. NG tube extending into the stomach. Questionable catheter tubing projecting over the right lung apex. Clinical correlation. PLEURA: As above. CARDIOVASCULAR: Normal. OSSEOUS STRUCTURES: Degenerative changes in the spine and shoulders. VISUALIZED UPPER ABDOMEN: Normal. OTHER FINDINGS: None. IMPRESSION: Worsening now large loculated left pleural effusion with near complete opacification of the left susie thorax. Patchy right basilar airspace opacity with small right pleural effusion. Endotracheal tube extending into the mid thoracic trachea. NG tube extending into the stomach. Questionable catheter tubing projecting over the right lung apex. Clinical correlation.
[2016-10-22 14:25] LABS: CALCIUM 7.5 mg/dl (8.6-10.4)
[2016-10-22 14:35] LABS: ABG ALLEN TEST PO; ABG MECHANICAL RATE 16; ARTERIAL BLOOD HGB O2 SAT 97.7 % (95.0-98.0); ATERIAL BLOOD GAS PEEP 5; CARBOXYHEMOGLOBIN 1.6 % (0.5-1.5); DRAW SITE RRA; HHB -0.1 % (0.0-5.0); METHEMOGLOBIN 0.8 % (0.0-3.0)
--- NOTE | 2016-10-22 15:43 | CP.PCM.CON ---
History of Present Illness - History of Present Illness History of Present Illness: Reason for consultation-vaginal bleeding HPI 86 y/o female admitted with respiratory failure, being consulted fro bleeding noted overnight by the nurse.Patient was seen in ICU at around 12 noon , when she was transferred from the floor to the ICU. Unable to perform ros and obtain OBGYN HX due to patient not being responsive. Past Patient History - Past Medical History & Family History Past Medical History?: No - Past Social History Smoking Status: Current Some Days Smoker - CARDIAC Hx Hypertension: Yes - PULMONARY Hx Chronic Obstructive Pulmonary Disease (COPD): Yes - ENDOCRINE/METABOLIC Hx Hypothyroidism: Yes - MUSCULOSKELETAL/RHEUMATOLOGICAL Hx Falls: No (unknown) - GENITOURINARY/GYNECOLOGICAL Hx Genitourinary Disorders: (UNKNOWN) - PSYCHIATRIC Hx Substance Use: Yes - SURGICAL HISTORY Hx Surgeries: No (UNOBTAINABLE) - ANESTHESIA Hx Anesthesia: No Hx Anesthesia Reactions: No Hx Malignant Hyperthermia: No Has any member of the family had a problem w/ anesthesia?: No Meds Allergies/Adverse Reactions: Allergies Allergy/AdvReac Type Severity Reaction Status Date / Time No Known Allergies Allergy Verified 09/24/16 15:06 - Medications Medications: Current Medications Aspirin (Aspirin Chewable) 81 mg PO DAILY [facility] Last Admin: 10/22/16 11:56 Dose: Not Given Budesonide (Pulmicort Respules) 0.5 mg INH RQ12 [facility] Last Admin: 10/22/16 07:43 Dose: 0.5 mg Clopidogrel Bisulfate (Plavix) 75 mg PO DAILY [facility] Last Admin: 10/22/16 11:56 Dose: Not Given Diltiazem HCl (Cardizem) 60 mg GT QID [facility] Last Admin: 10/22/16 14:55 Dose: Not Given Famotidine (Pepcid) 20 mg PO DAILY [facility] Dextrose (Dextrose 5% In Water 1000 Ml) 1,000 mls @ 60 mls/hr IV .[id number] [facility] Last Admin: 10/21/16 06:00 Dose: 60 mls/hr Propofol (Diprivan) 100 mls @ 2.327 mls/hr IV .Q24H PRN; Protocol; 5 MCG/KG/MIN PRN Reason: TITRATE PER MD ORDER Last Admin: 10/22/16 13:00 Dose: 4.654 mls/hr Lactated Ringer's (Lactated Ringer's) 1,000 mls @ 75 mls/hr IV .[id number] [facility] Last Admin: 10/22/16 14:59 Dose: 75 mls/hr Insulin Human Regular (Novolin R) 0 unit SC ACHS [facility] PRN Reason: Protocol Last Admin: 10/22/16 13:43 Dose: Not Given Polyethylene Glycol (Miralax) 17 gm PO DAILY [facility] Last Admin: 10/15/16 11:19 Dose: Not Given Potassium Chloride (Potassium Chloride Oral Soln) 40 meq PO DAILY [facility] Last Admin: 10/22/16 11:56 Dose: Not Given Rosuvastatin Calcium (Crestor) 10 mg PO HS [facility] Last Admin: 10/21/16 21:36 Dose: Not Given Tiotropium [place] (Spiriva) 18 mcg INH RQ24 [facility] Last Admin: 10/21/16 07:38 Dose: Not Given Physical Exam - Constitutional Additional comments: Lethargic and responds to painful stimuli only - Exam Additional comments: Limited bedside exam done scant blood seen on pad no active bleeding noticed from the vaginal area unable to perform speculum exam secondary to patients mental status Results - Vital Signs Recent Vital Signs: Last Vital Signs Temp 97.2 F L 10/22/16 08:23 Pulse 103 H 10/22/16 08:23 Resp 18 10/22/16 08:23 BP 106/67 10/22/16 08:23 Pulse Ox 97 10/22/16 08:23 - Labs Result Diagrams: 10/22/16 14:11 10/22/16 14:11 Labs: Laboratory Results - last 24 hr 10/15/16 10/20/16 10/21/16 16:01 20:57 16:37 WBC RBC Hgb Hct MCV MCH MCHC RDW Plt Count MPV Neut % (Auto) Lymph % (Auto) [place] % (Auto) Eos % (Auto) Baso % (Auto) Neut # Lymph # [place] # Eos # Baso # PT INR APTT Puncture Site pCO2 pO2 HCO3 ABG pH ABG Total CO2 ABG O2 Saturation ABG Base Excess ABG Hemoglobin ABG Carboxyhemoglobin POC ABG HHb (Measured) ABG Methemoglobin Fish Test A-a O2 Difference Respiratory Index Hgb O2 Saturation Liter Flow Mechanical Rate FiO2 Tidal Volume PEEP Sodium Potassium Chloride Carbon Dioxide Anion Gap BUN Creatinine Est GFR ( Amer) Est GFR (Non-Af Amer) POC Glucose (mg/dL) 108 Random Glucose Calcium Urine Chloride 124 Fluid Albumin 0.9 10/21/16 10/22/16 10/22/16 20:56 04:11 05:45 WBC 6.1 RBC 3.26 L Hgb 9.7 L Hct 29.6 L MCV 90.5 MCH 29.8 MCHC 33.0 RDW 14.8 H Plt Count 121 L MPV 9.5 Neut % (Auto) 81.2 H Lymph % (Auto) 10.6 L [place] % (Auto) 5.7 Eos % (Auto) 0.5 Baso % (Auto) 2.0 Neut # 4.9 Lymph # 0.6 L [place] # 0.3 Eos # 0.0 Baso # 0.1 PT 13.8 H INR 1.2 APTT 34 Puncture Site pCO2 pO2 HCO3 ABG pH ABG Total CO2 ABG O2 Saturation ABG Base Excess ABG Hemoglobin ABG Carboxyhemoglobin POC ABG HHb (Measured) ABG Methemoglobin Fish Test A-a O2 Difference Respiratory Index Hgb O2 Saturation Liter Flow Mechanical Rate FiO2 Tidal Volume PEEP Sodium Potassium Chloride Carbon Dioxide Anion Gap BUN Creatinine Est GFR ( Amer) Est GFR (Non-Af Amer) POC Glucose (mg/dL) 95 Random Glucose Calcium Urine Chloride Fluid Albumin 10/22/16 10/22/16 10/22/16 06:38 10:56 10:57 WBC RBC Hgb Hct MCV MCH MCHC RDW Plt Count MPV Neut % (Auto) Lymph % (Auto) [place] % (Auto) Eos % (Auto) Baso % (Auto) Neut # Lymph # [place] # Eos # Baso # PT INR APTT Puncture Site Lra pCO2 52 H pO2 161 H HCO3 20.6 L ABG pH 7.23 L ABG Total CO2 23.4 ABG O2 Saturation 100.9 H ABG Base Excess -5.6 L ABG Hemoglobin 8.4 L ABG Carboxyhemoglobin 2.3 H POC ABG HHb (Measured) -0.9 L ABG Methemoglobin 0.8 Fish Test Pos A-a O2 Difference 487.0 Respiratory Index 3.0 Hgb O2 Saturation 97.8 Liter Flow 12.0 Mechanical Rate FiO2 100.0 Tidal Volume PEEP Sodium Potassium Chloride Carbon Dioxide Anion Gap BUN Creatinine Est GFR ( Amer) Est GFR (Non-Af Amer) POC Glucose (mg/dL) 127 H 161 H Random Glucose Calcium Urine Chloride Fluid Albumin 10/22/16 10/22/16 10/22/16 12:54 14:11 14:23 WBC 5.2 RBC 2.83 L Hgb 8.3 L Hct 25.6 L MCV 90.4 MCH 29.5 MCHC 32.6 L RDW 15.6 H Plt Count 123 L MPV 9.5 Neut % (Auto) 85.5 H Lymph % (Auto) 11.1 L [place] % (Auto) 3.0 Eos % (Auto) 0.1 Baso % (Auto) 0.3 Neut # 4.4 Lymph # 0.6 L [place] # 0.2 Eos # 0.0 Baso # 0.0 PT INR APTT Puncture Site Rra pCO2 31 L pO2 112 H HCO3 19.3 L ABG pH 7.36 ABG Total CO2 18.5 L ABG O2 Saturation 100.1 H ABG Base Excess -7.2 L ABG Hemoglobin 8.1 L ABG Carboxyhemoglobin 1.6 H POC ABG HHb (Measured) -0.1 L ABG Methemoglobin 0.8 Fish Test Po A-a O2 Difference 420.0 Respiratory Index 3.8 Hgb O2 Saturation 97.7 Liter Flow Mechanical Rate 16 FiO2 80.0 Tidal Volume 500 PEEP 5 Sodium 145 Potassium 3.3 L Chloride 118 H Carbon Dioxide 18 L Anion Gap 12 BUN 44 H Creatinine 2.2 H Est GFR ( Amer) 26 Est GFR (Non-Af Amer) 21 POC Glucose (mg/dL) 140 H Random Glucose 99 Calcium 7.5 L Urine Chloride Fluid Albumin Assessment & Plan - Assessment and Plan (Free Text) Assessment: 86 y/o female with hx of copd, tobacco use admitted with respiratory failure.Being consulted for vaginal bleeding.No active bleeding on the pad seen but unable to assess completely secondary to patients mental condition and respiratory status.Would recommend evaluation once patient conscious and stable or if any further bleeding noted.Please call the OB hospitalist team if any further bleeding noted or when patiuent stable for further evaluation
--- NOTE | 2016-10-22 17:01 | CP.PCM.CON ---
<Katarzyna Hearn - Last Filed: 10/22/16 18:04> History of Present Illness - History of Present Illness History of Present Illness: CRITICAL CARE CONSULT NOTE 86 yo female with PMHx significant for COPD, HTN presented to the ICU for critical care monitoring after increased work of breathing noted on the medical floor Patient initially presented to the ICU on 09/23 after presenting with altered mental status secondary to respiratory failure. During that admission, patient was unable to maintain saturations and thus needed to be intubated. Today however, patient had increased work of breathing on the floors noted by Pulm/Crit care administrative medical director Dr. Yo. Patient was also noted to be lethargic at times per nursing team though arousable. Patient known to critical care team as patient's clinical course was much improved to which she was extubated last week on 10/17/16 . Patient's current clinical presentation however warranted re- intubation. This is the patient's third time being intubated during this current hospital course. Palliative care was thus consulted to assess end of life considerations for the family to consider in light of clinical course. Family requested DNR/DNI measures. Nursing mentioned new-onset vaginal bleeding as well. An ROS cannot be obtained at this time because patient is intubated and sedated. PMHX- as noted above PSHx- Unknown. Not obtained due to patient being intubated and sedated Fam Hx- Unknown. Not obtained due to patient being intubated and sedated Social Hx- Current smoker of cigarettes since the age of 13. Allergies- NKDA Review of Systems - Review of Systems Systems not reviewed;Unavailable: Intubated - Constitutional Constitutional: As Per HPI - EENT Eyes: As Per HPI Ears: As Per HPI, Decreased Hearing - Breasts Breasts: As Per HPI - Cardiovascular Cardiovascular: As Per HPI - Respiratory Respiratory: As Per HPI - Gastrointestinal Gastrointestinal: As Per HPI - Genitourinary Genitourinary: As Per HPI - Reproductive: Female Reproductive:Female: Abnormal Vaginal Bleeding - Neurological Neurological: As Per HPI - Psychiatric Psychiatric: Confusion Past Patient History - Past Medical History & Family History Past Medical History?: No - Past Social History Smoking Status: Current Some Days Smoker - CARDIAC Hx Hypertension: Yes - PULMONARY Hx Chronic Obstructive Pulmonary Disease (COPD): Yes - ENDOCRINE/METABOLIC Hx Hypothyroidism: Yes - MUSCULOSKELETAL/RHEUMATOLOGICAL Hx Falls: No (unknown) - GENITOURINARY/GYNECOLOGICAL Hx Genitourinary Disorders: (UNKNOWN) - PSYCHIATRIC Hx Substance Use: Yes - SURGICAL HISTORY Hx Surgeries: No (UNOBTAINABLE) - ANESTHESIA Hx Anesthesia: No Hx Anesthesia Reactions: No Hx Malignant Hyperthermia: No Has any member of the family had a problem w/ anesthesia?: No Meds Allergies/Adverse Reactions: Allergies Allergy/AdvReac Type Severity Reaction Status Date / Time No Known Allergies Allergy Verified 09/24/16 15:06 - Medications Medications: Current Medications Aspirin (Aspirin Chewable) 81 mg PO DAILY [facility] Last Admin: 10/22/16 11:56 Dose: Not Given Budesonide (Pulmicort Respules) 0.5 mg INH RQ12 [facility] Last Admin: 10/22/16 07:43 Dose: 0.5 mg Clopidogrel Bisulfate (Plavix) 75 mg PO DAILY [facility] Last Admin: 10/22/16 11:56 Dose: Not Given Diltiazem HCl (Cardizem) 60 mg GT QID [facility] Last Admin: 10/22/16 14:55 Dose: Not Given Famotidine (Pepcid) 20 mg PO DAILY [facility] Propofol (Diprivan) 100 mls @ 2.327 mls/hr IV .Q24H PRN; Protocol; 5 MCG/KG/MIN PRN Reason: TITRATE PER MD ORDER Last Admin: 10/22/16 13:00 Dose: 4.654 mls/hr Lactated Ringer's (Lactated Ringer's) 1,000 mls @ 100 mls/hr IV .Q10H [facility] Lactated Ringer's (Lactated Ringer's) 1,000 mls @ 999 mls/hr IV .Q1H1M [facility] Insulin Human Regular (Novolin R) 0 unit SC ACHS [facility] PRN Reason: Protocol Last Admin: 10/22/16 13:43 Dose: Not Given Polyethylene Glycol (Miralax) 17 gm PO DAILY [facility] Last Admin: 10/15/16 11:19 Dose: Not Given Potassium Chloride (Potassium Chloride Oral Soln) 40 meq PO DAILY [facility] Last Admin: 10/22/16 11:56 Dose: Not Given Rosuvastatin Calcium (Crestor) 10 mg PO HS [facility] Last Admin: 10/21/16 21:36 Dose: Not Given Tiotropium [place] (Spiriva) 18 mcg INH RQ24 [facility] Last Admin: 10/21/16 07:38 Dose: Not Given Physical Exam - Constitutional Appears: Non-toxic, No Acute Distress Additional comments: intubated and sedated - Head Exam Head Exam: ATRAUMATIC, NORMAL INSPECTION, NORMOCEPHALIC - Eye Exam Eye Exam: EOMI, Normal appearance, PERRL Pupil Exam: NORMAL ACCOMODATION, PERRL - ENT Exam ENT Exam: Mucous Membranes Moist - Neck Exam Neck exam: Positive for: Full Rom - Respiratory Exam Respiratory Exam: NORMAL BREATHING PATTERN. absent: Wheezes Additional comments: intubated on ventilator - Cardiovascular Exam Cardiovascular Exam: +S1, +S2 - GI/Abdominal Exam GI & Abdominal Exam: Distended, Normal Bowel Sounds, Soft - Extremities Exam Extremities exam: Positive for: full ROM, normal capillary refill, pedal edema, pedal pulses present - Neurological Exam Additional comments: sedated at this time - Skin Skin Exam: Dry, Warm Results - Vital Signs Recent Vital Signs: Last Vital Signs Temp 97.2 F L 10/22/16 08:23 Pulse 103 H 10/22/16 08:23 Resp 18 10/22/16 08:23 BP 106/67 10/22/16 08:23 Pulse Ox 97 10/22/16 08:23 - Labs Result Diagrams: 10/22/16 14:11 10/22/16 14:11 Labs: Laboratory Results - last 24 hr 10/15/16 10/20/16 10/21/16 16:01 20:57 20:56 WBC RBC Hgb Hct MCV MCH MCHC RDW Plt Count MPV Neut % (Auto) Lymph % (Auto) [place] % (Auto) Eos % (Auto) Baso % (Auto) Neut # Lymph # [place] # Eos # Baso # PT INR APTT Puncture Site pCO2 pO2 HCO3 ABG pH ABG Total CO2 ABG O2 Saturation ABG Base Excess ABG Hemoglobin ABG Carboxyhemoglobin POC ABG HHb (Measured) ABG Methemoglobin Fish Test A-a O2 Difference Respiratory Index Hgb O2 Saturation Liter Flow Mechanical Rate FiO2 Tidal Volume PEEP Sodium Potassium Chloride Carbon Dioxide Anion Gap BUN Creatinine Est GFR ( Amer) Est GFR (Non-Af Amer) POC Glucose (mg/dL) 95 Random Glucose Calcium Urine Chloride 124 Fluid Albumin 0.9 10/22/16 10/22/16 10/22/16 04:11 05:45 06:38 WBC 6.1 RBC 3.26 L Hgb 9.7 L Hct 29.6 L MCV 90.5 MCH 29.8 MCHC 33.0 RDW 14.8 H Plt Count 121 L MPV 9.5 Neut % (Auto) 81.2 H Lymph % (Auto) 10.6 L [place] % (Auto) 5.7 Eos % (Auto) 0.5 Baso % (Auto) 2.0 Neut # 4.9 Lymph # 0.6 L [place] # 0.3 Eos # 0.0 Baso # 0.1 PT 13.8 H INR 1.2 APTT 34 Puncture Site pCO2 pO2 HCO3 ABG pH ABG Total CO2 ABG O2 Saturation ABG Base Excess ABG Hemoglobin ABG Carboxyhemoglobin POC ABG HHb (Measured) ABG Methemoglobin Fish Test A-a O2 Difference Respiratory Index Hgb O2 Saturation Liter Flow Mechanical Rate FiO2 Tidal Volume PEEP Sodium Potassium Chloride Carbon Dioxide Anion Gap BUN Creatinine Est GFR ( Amer) Est GFR (Non-Af Amer) POC Glucose (mg/dL) 127 H Random Glucose Calcium Urine Chloride Fluid Albumin 10/22/16 10/22/16 10/22/16 10:56 10:57 12:54 WBC RBC Hgb Hct MCV MCH MCHC RDW Plt Count MPV Neut % (Auto) Lymph % (Auto) [place] % (Auto) Eos % (Auto) Baso % (Auto) Neut # Lymph # [place] # Eos # Baso # PT INR APTT Puncture Site Lra pCO2 52 H pO2 161 H HCO3 20.6 L ABG pH 7.23 L ABG Total CO2 23.4 ABG O2 Saturation 100.9 H ABG Base Excess -5.6 L ABG Hemoglobin 8.4 L ABG Carboxyhemoglobin 2.3 H POC ABG HHb (Measured) -0.9 L ABG Methemoglobin 0.8 Fish Test Pos A-a O2 Difference 487.0 Respiratory Index 3.0 Hgb O2 Saturation 97.8 Liter Flow 12.0 Mechanical Rate FiO2 100.0 Tidal Volume PEEP Sodium Potassium Chloride Carbon Dioxide Anion Gap BUN Creatinine Est GFR ( Amer) Est GFR (Non-Af Amer) POC Glucose (mg/dL) 161 H 140 H Random Glucose Calcium Urine Chloride Fluid Albumin 10/22/16 10/22/16 14:11 14:23 WBC 5.2 RBC 2.83 L Hgb 8.3 L Hct 25.6 L MCV 90.4 MCH 29.5 MCHC 32.6 L RDW 15.6 H Plt Count 123 L MPV 9.5 Neut % (Auto) 85.5 H Lymph % (Auto) 11.1 L [place] % (Auto) 3.0 Eos % (Auto) 0.1 Baso % (Auto) 0.3 Neut # 4.4 Lymph # 0.6 L [place] # 0.2 Eos # 0.0 Baso # 0.0 PT INR APTT Puncture Site Rra pCO2 31 L pO2 112 H HCO3 19.3 L ABG pH 7.36 ABG Total CO2 18.5 L ABG O2 Saturation 100.1 H ABG Base Excess -7.2 L ABG Hemoglobin 8.1 L ABG Carboxyhemoglobin 1.6 H POC ABG HHb (Measured) -0.1 L ABG Methemoglobin 0.8 Fish Test Po A-a O2 Difference 420.0 Respiratory Index 3.8 Hgb O2 Saturation 97.7 Liter Flow Mechanical Rate 16 FiO2 80.0 Tidal Volume 500 PEEP 5 Sodium 145 Potassium 3.3 L Chloride 118 H Carbon Dioxide 18 L Anion Gap 12 BUN 44 H Creatinine 2.2 H Est GFR ( Amer) 26 Est GFR (Non-Af Amer) 21 POC Glucose (mg/dL) Random Glucose 99 Calcium 7.5 L Urine Chloride Fluid Albumin Assessment & Plan - Assessment and Plan (Free Text) Assessment: 86 F with a past medical history of COPD secondary to chronic tobacco use initially admitted on 09/23 for respiratory distress. Patient found on the floor 10/22 with shallow breathing warranting re-consult of critical care team for intubation and continued care . This is patient's third time being intubated during this hospital stay. Palliative care on board with family decision for DNR /DNI measures Plan: Neuro: Neurochecks q6 Sedation: Propofol Cardio: Diltiazem 60 mg GT QID [facility] Rosuvastatin 10 mg PO HS [facility] Plavix 75 mg PO daily ASA 81 mg PO daily Pulm: COPD Maintain O2 sat >92% Budesonide 0.5 mg INH Vent Settings: 10/22 PRVC 80%, RR 16, PEEP 5, TV 500 AB/28 pH 7.36, CO2 31, O2 112, HCO3 19.3 Tiotropium [place] 18 mcg INH RQ24 [facility] Endo: Maintain euglycemia Hgb A1c 5.9- No known hx of Diabetes. Sugars stable and WNL on admission. Monitor GI: Miralax 17 gm PO daily Monitor CMP 10/15: 9 cm cecal dilation without evidence of obstruction 10/11 XRAY Abdominal Series: mildly dilated loops of bowel in RUQ w/ non- specific gas pattern : I/Os 1110/2625 = -1515cc Nephro: BUN/Cr: 44/2.2 Monitor I/Os Lactated ringers Vaginal Bleeding 10/22 [employer] consult - No active bleeding witnesses on pad. Would recommend evaluation when patient is conscious and stable. Monitor I/Os Urology consulted- F/U recommendations Heme: H&H: 8.3/25.6 Cont to monitor COA/28 INR: 1.2, PT 13.8, PTT 34 Daily CBC ID: WBC 5.2 Monitor CBC MSK: PT/OT eval and treat Social Work: Brother Anthony Ellis and niece Felicia met with Mar [facility] and discussed end of life care discussion. Patient's family requested DNR/ DNI measures at this time because this best reflects patient's own personal wishes per family. Family is asking for extubation morning 10/24. POLST forms signed. Prophylaxis: DVT: SCDs, Heparin contraindicated due to vaginal bleeding GI: Famotidine 20 mg PO daily <Cherie Shelley - Last Filed: 10/23/16 12:01> Meds - Medications Medications: Current Medications Aspirin (Aspirin Chewable) 81 mg PO DAILY [facility] Last Admin: 10/23/16 11:08 Dose: 81 mg Budesonide (Pulmicort Respules) 0.5 mg INH RQ12 [facility] Last Admin: 10/23/16 07:45 Dose: 0.5 mg Clopidogrel Bisulfate (Plavix) 75 mg PO DAILY [facility] Last Admin: 10/23/16 11:08 Dose: 75 mg Diltiazem HCl (Cardizem) 60 mg GT QID [facility] Last Admin: 10/23/16 11:00 Dose: Not Given Famotidine (Pepcid) 20 mg PO DAILY [facility] Last Admin: 10/23/16 11:08 Dose: 20 mg Propofol (Diprivan) 100 mls @ 2.327 mls/hr IV .Q24H PRN; Protocol; 5 MCG/KG/MIN PRN Reason: TITRATE PER MD ORDER Last Admin: 10/22/16 13:00 Dose: 4.654 mls/hr Polyethylene Glycol (Miralax) 17 gm PO DAILY [facility] Last Admin: 10/15/16 11:19 Dose: Not Given Potassium Chloride (Potassium Chloride Oral Soln) 40 meq PO DAILY [facility] Last Admin: 10/22/16 11:56 Dose: Not Given Rosuvastatin Calcium (Crestor) 10 mg PO HS [facility] Last Admin: 10/22/16 21:09 Dose: 10 mg Tiotropium [place] (Spiriva) 18 mcg INH RQ24 [facility] Last Admin: 10/23/16 07:45 Dose: Not Given Results - Vital Signs Recent Vital Signs: Last Vital Signs Temp 98 F 10/23/16 04:00 Pulse 84 10/23/16 07:00 Resp 16 10/23/16 07:00 BP 114/65 10/23/16 06:59 Pulse Ox 100 10/23/16 07:00 - Labs Result Diagrams: 10/23/16 05:55 10/23/16 05:55 Labs: Laboratory Results - last 24 hr 10/22/16 10/22/16 10/22/16 12:54 14:11 14:23 WBC 5.2 RBC 2.83 L Hgb 8.3 L Hct 25.6 L MCV 90.4 MCH 29.5 MCHC 32.6 L RDW 15.6 H Plt Count 123 L MPV 9.5 Neut % (Auto) 85.5 H Lymph % (Auto) 11.1 L [place] % (Auto) 3.0 Eos % (Auto) 0.1 Baso % (Auto) 0.3 Neut # 4.4 Lymph # 0.6 L [place] # 0.2 Eos # 0.0 Baso # 0.0 Puncture Site Rra pCO2 31 L pO2 112 H HCO3 19.3 L ABG pH 7.36 ABG Total CO2 18.5 L ABG O2 Saturation 100.1 H ABG Base Excess -7.2 L ABG Hemoglobin 8.1 L ABG Carboxyhemoglobin 1.6 H POC ABG HHb (Measured) -0.1 L ABG Methemoglobin 0.8 Fish Test Po A-a O2 Difference 420.0 Respiratory Index 3.8 Hgb O2 Saturation 97.7 Mechanical Rate 16 FiO2 80.0 Tidal Volume 500 PEEP 5 Sodium 145 Potassium 3.3 L Chloride 118 H Carbon Dioxide 18 L Anion Gap 12 BUN 44 H Creatinine 2.2 H Est GFR ( Amer) 26 Est GFR (Non-Af Amer) 21 POC Glucose (mg/dL) 140 H Random Glucose 99 Calcium 7.5 L Phosphorus Magnesium Total Bilirubin AST ALT Alkaline Phosphatase Total Protein Albumin Globulin Albumin/Globulin Ratio 10/23/16 10/23/16 05:15 05:55 WBC 5.4 RBC 2.31 L Hgb 6.8 L Hct 20.7 L MCV 89.5 MCH 29.5 MCHC 32.9 L RDW 15.4 H Plt Count 110 L MPV 10.6 Neut % (Auto) 74.3 Lymph % (Auto) 20.3 [place] % (Auto) 5.0 Eos % (Auto) 0.3 Baso % (Auto) 0.1 Neut # 4.0 Lymph # 1.1 [place] # 0.3 Eos # 0.0 Baso # 0.0 Puncture Site Rr pCO2 31 L pO2 226 H HCO3 20.6 L ABG pH 7.39 ABG Total CO2 19.8 L ABG O2 Saturation 100.0 H ABG Base Excess -5.6 L ABG Hemoglobin 6.8 L ABG Carboxyhemoglobin 1.1 POC ABG HHb (Measured) 0.0 ABG Methemoglobin 0.8 Fish Test Pos A-a O2 Difference 306.0 Respiratory Index 1.4 Hgb O2 Saturation 98.1 H Mechanical Rate 16 FiO2 80.0 Tidal Volume 500 PEEP 5 Sodium 146 Potassium 2.9 L Chloride 112 H Carbon Dioxide 20 L Anion Gap 17 BUN 47 H Creatinine 2.3 H Est GFR ( Amer) 24 Est GFR (Non-Af Amer) 20 POC Glucose (mg/dL) Random Glucose 76 Calcium 7.0 L Phosphorus 3.9 Magnesium 1.5 L Total Bilirubin 0.6 AST 27 ALT 38 Alkaline Phosphatase 41 Total Protein 3.6 L Albumin 1.8 L D Globulin 1.8 L Albumin/Globulin Ratio 1.0 Attending/Attestation - Attestation I have personally seen and examined this patient.: Yes I have fully participated in the care of the patient.: Yes I have reviewed all pertinent clinical information: Yes Notes (Text): 10/23/16 18:59 Patient transferred to ICU for respiratory distress, was found on the floors with respiratory distress and acute respiratory acidosis. Intubated and awake after CO2 washed out.
[2016-10-22] MEDS: Lactated Ringer's 1,000 ML IV SCH (18:30)
[2016-10-23] MEDS: Lactated Ringer's 1,000 ML IV SCH (04:23)
[2016-10-23 05:45] LABS: ABG ALLEN TEST POS; ABG MECHANICAL RATE 16; ARTERIAL BLOOD HGB O2 SAT 98.1 % (95.0-98.0); ATERIAL BLOOD GAS PEEP 5; CARBOXYHEMOGLOBIN 1.1 % (0.5-1.5); DRAW SITE RR; METHEMOGLOBIN 0.8 % (0.0-3.0)
[2016-10-23 06:15] LABS: BASO % 0.1 % (0.0-2.0); EOS % 0.3 % (0.0-4.0); HEMATOCRIT 20.7 % (34.0-47.0); LYMPH # 1.1 K/uL (1.0-4.3); LYMPH % 20.3 % (20.0-40.0); MEAN CELL VOLUME 89.5 fL (81.0-99.0); MEAN CORPUSCULAR HEMOGLOBIN 29.5 pg (27.0-31.0); MEAN CORPUSCULAR HGB CONC 32.9 g/dL (33.0-37.0); MEAN PLATELET VOLUME 10.6 fL (7.2-11.7); MONO # 0.3 K/uL (0.0-0.8); NRBC % 0.1 % (0.0-2.0); RED CELL DISTRIBUTION WIDTH 15.4 % (11.5-14.5); WHITE BLOOD COUNT 5.4 K/uL (4.8-10.8)
[2016-10-23 06:22] LABS: POTASSIUM 2.9 mmol/L (3.6-5.2)
[2016-10-23 06:24] LABS: BILIRUBIN,TOTAL 0.6 mg/dL (0.2-1.3); TOTAL PROTEIN 3.6 g/dL (6.3-8.3)
[2016-10-23 06:25] LABS: MAGNESIUM 1.5 mg/dL (1.6-2.3); PHOSPHOROUS 3.9 mg/dL (2.5-4.5)
[2016-10-23] MEDS: Tiotropium 18 mcg Cap For Inhalation INH SCH (07:45)
[2016-10-23] MEDS: Budesonide 0.5 mg/2 ml Inhal Susp UD INH SCH ×2 (07:45→19:46)
[2016-10-23] MEDS ORDERED: Potassium Chloride 20 mEq/15 ml LIQ UD PO ONE ×2 (08:00→14:00)
--- NOTE | 2016-10-23 09:01 | CP.PCM.PN ---
Subjective - Date & Time of Evaluation Date of Evaluation: 10/23/16 Time of Evaluation: 08:59 - Subjective Subjective: CC; Follow up failure to thrive Events noted- Intubated, dropped Hgb, considering terminal wean. No GI bleeding noted. BMs recorded. Objective - Vital Signs/Intake and Output Vital Signs (last 24 hours): Temp Pulse Resp BP Pulse Ox 98 F 84 16 114/65 100 10/23/16 04:00 10/23/16 07:00 10/23/16 07:00 10/23/16 06:59 10/23/16 07:00 Intake and Output: 10/23/16 10/23/16 06:59 18:59 Intake Total 1200.4 104.2 Output Total 300 Balance 900.4 104.2 - Medications Medications: Current Medications Aspirin (Aspirin Chewable) 81 mg PO DAILY [facility] Last Admin: 10/22/16 11:56 Dose: Not Given Budesonide (Pulmicort Respules) 0.5 mg INH RQ12 [facility] Last Admin: 10/23/16 07:45 Dose: 0.5 mg Clopidogrel Bisulfate (Plavix) 75 mg PO DAILY [facility] Last Admin: 10/22/16 11:56 Dose: Not Given Diltiazem HCl (Cardizem) 60 mg GT QID [facility] Last Admin: 10/22/16 22:10 Dose: 60 mg Famotidine (Pepcid) 20 mg PO DAILY [facility] Propofol (Diprivan) 100 mls @ 2.327 mls/hr IV .Q24H PRN; Protocol; 5 MCG/KG/MIN PRN Reason: TITRATE PER MD ORDER Last Admin: 10/22/16 13:00 Dose: 4.654 mls/hr Lactated Ringer's (Lactated Ringer's) 1,000 mls @ 100 mls/hr IV .Q10H [facility] Last Admin: 10/23/16 04:23 Dose: 100 mls/hr Polyethylene Glycol (Miralax) 17 gm PO DAILY [facility] Last Admin: 10/15/16 11:19 Dose: Not Given Potassium Chloride (Potassium Chloride Oral Soln) 40 meq PO DAILY [facility] Last Admin: 10/22/16 11:56 Dose: Not Given Rosuvastatin Calcium (Crestor) 10 mg PO HS [facility] Last Admin: 10/22/16 21:09 Dose: 10 mg Tiotropium [place] (Spiriva) 18 mcg INH RQ24 [facility] Last Admin: 10/23/16 07:45 Dose: Not Given - Labs Labs: 10/23/16 05:55 10/23/16 05:55 PT 13.8 SECONDS (9.7-12.2) H 10/22/16 05:45 INR 1.2 10/22/16 05:45 APTT 34 SECONDS (21-34) 10/22/16 05:45 - Constitutional Appears: Confused, Chronically Ill - Head Exam Head Exam: NORMOCEPHALIC - ENT Exam Additional comments: On Vent - Respiratory Exam Respiratory Exam: Decreased Breath Sounds - Cardiovascular Exam Cardiovascular Exam: REGULAR RHYTHM - GI/Abdominal Exam GI & Abdominal Exam: Soft. absent: Distended, Tenderness Assessment and Plan (1) Respiratory failure Assessment & Plan: Vent dependent Management per Pulmonary Status: Chronic (2) Abdominal distension Assessment & Plan: resolved Having BMs Status: Acute (3) Confusion Assessment & Plan: Failure to thrive Terminal wean off vent being considered. Status: Acute (4) Anemia Assessment & Plan: Acute drop in Hgb without signs of overt bleeding Rec: Monitor. No aggressive evaluation/workup Status: Acute
--- NOTE | 2016-10-23 09:09 | RAD ---
HISTORY: intubated COMPARISON: 10/22/2016 FINDINGS: LUNGS: Lines and tubes in stable position. Moderate venous congestion. Prominent bibasilar airspace opacities with bilateral pleural effusions. Biapical pleural thickening with upper lobe granulomatous changes. PLEURA: As above. CARDIOVASCULAR: Normal. OSSEOUS STRUCTURES: Degenerative changes in the spine and shoulders. VISUALIZED UPPER ABDOMEN: Normal. OTHER FINDINGS: None. IMPRESSION: Lines and tubes in stable position. Moderate venous congestion. Prominent bibasilar airspace opacities with bilateral pleural effusions. Biapical pleural thickening with upper lobe granulomatous changes.
--- NOTE | 2016-10-23 09:25 | CP.CCUPN ---
<Katarzyna Hearn - Last Filed: 10/23/16 12:55> CCU Subjective - Physician Review Subjective (Free Text): 10/07/16 12:24 Patient was seen and examined in no acute distress. No acute events overnight. Packing remains in place. Patient appears more lethargic today at times as compared to her normal baseline. Patient was extubated 10/02/16 with O2 saturation in high 90s on venti mask. The patient has passed a swallow evaluation and eating though minimally. Per nursing, patient has not had a BM in 5-6 days. The patient did not comply with ROS due to somnolence. 10/08/16 12:48 Pt seen and examined though increasingly lethargic on evaluation and as per nursing. Patient desaturated into the 80's in mild distress prompting the need for intubation. A ROS could not be obtained due to patient's lethargy 10/09/16 14:24 Pt seen and examined in no acute distress. Patient intubated 10/08/16 with TLC placed with no events per nursing. A ROS could not be obtained due to patient's lethargy. 10/10/16 21:06 Pt seen and examined in no acute distress. No events overnight per nursing. An ROS could not be obtained due to patient being intubated and sedated. 10/11/16 07:16 Pt seen and examined in no acute distress. Patient hemodynamically stable at this time. Patient being weaned off FiO2. Feeds held in light of abdominal xray findings suggestive of large ileus. An ROS could not be obtained due to patient being intubated and sedated. Sister present bedside. 10/14/16 15:43 Pt seen and examined in no acute distress. Patient alert and able to point and gesture towards fan in need of cool air. Patient able to gesture and wave at family present bedside as well. Patient tolerating CPAP. Patient to have thoracentesis today after consent is obtained. An ROS could not be obtained at this time due to patient being intubated. 10/15/16 15:22 Pt seen and examined in no acute distress. Patient tolerating CPAP trial well. Patient had thoracentesis performed. Tolerated procedure well. Still intubated - No ROS at this time. 10/16/16 13:43 Pt seen and examined in no acute distress. Patient tolerating CPAP. Patient still intubated though quite responsive with palpation. No ROS at this time as patient is intubated. 10/17/16 17:42 Pt seen and examined in no acute distress. Patient tolerating CPAP with pressure support. Patient was extubated this afternoon. Patient instructed not to talk or speak. Patient denied chest pain, palpitations, headaches, subjective fevers or chills at this time. 10/18/16 18:46 Pt seen and examined in no acute distress. Patient passed swallow eval per nursing. Patient is easily irritated at times and stated that she wanted her mitten restraints pulled off. A few weeks prior, patient nearly pulled out all her lines and thus the mittens will stay in place per nursing. Patient tolerating a diet. Patient's mentation waxes and wanes. At times, she is more alert and other times, she repeats the same phrases over and over. At this time , she denies subjective fevers or chills, chest pain, nausea, vomiting, or diarrhea, paresthesias, or headaches. 10/23/16 09:24 Pt seen and examined in no acute distress. patient currently intubated and sedated. Durign rounds, it was brisha u 10/23/16 09:41 Patient seen at bedside intubated on PRVC FiO2 80%, RR 16, PEEP 5, TV 500. FiO2 changed from 80% to 50% prior to morning rounds by respiratory therapist. Patient intubated and sedated at this time. Patient responsive to stimulus. Not able to coherently respond to ROS at this time though. CCU Objective - Vital Signs / Intake & Output Vital Signs (Last 4 hours): Vital Signs Pulse Resp BP Pulse Ox 10/23/16 07:00 84 16 100 10/23/16 06:59 85 16 114/65 100 10/23/16 06:33 88 16 114/65 100 10/23/16 06:30 91 H 16 100 10/23/16 06:01 148 H 15 100 10/23/16 06:00 89 16 100 10/23/16 05:33 90 16 109/62 100 10/23/16 05:30 91 H 16 100 Intake and Output (Last 8hrs): Intake & Output 10/22/16 10/23/16 10/23/16 22:59 06:59 14:59 Intake Total 1383.6 833.6 104.2 Output Total 20 300 Balance 1363.6 533.6 104.2 Intake: Intake, IV Amount 1333.6 833.6 104.2 Right Wrist 1000 Right Medial Port Wrist 21.0 Left Proximal Port 300 800 100 External Jugular Left Distal Port External 12.6 33.6 4.2 Jugular Other 50 Output: Urine 20 150 Urethral (Perez) 20 150 Stool 150 - Physical Exam Head: Positive for: Atraumatic, Normocephalic Pupils: Positive for: PERRL Extroacular Muscles: Positive for: EOMI Conjunctiva: Positive for: Injected Mouth: Positive for: Dry Neck: Positive for: Normal Range of Motion Respiratory/Chest: Positive for: Clear to Auscultation, Good Air Exchange, Rales. Negative for: Respiratory Distress, Accessory Muscle Use, Wheezes Cardiovascular: Positive for: Normal S1, S2, Irregular Rhythm. Negative for: Regular Rate and Rhythm, Murmurs Abdomen: Positive for: Distention, Normal Bowel Sounds. Negative for: Peritoneal Signs, Rebound Genitourinary/Pelvic Exam: Positive for: Other (perez in place) Upper Extremity: Positive for: Normal Inspection. Negative for: Cyanosis, Edema Lower Extremity: Positive for: Normal Inspection. Negative for: Edema, CALF TENDERNESS Neurological: Positive for: Other (sedated but responsive to stimuli) Skin: Positive for: Warm, Dry Psychiatric: Positive for: Alert - Medications Active Medications: Active Medications Generic Name Dose Route Start Last Admin Trade Name Freq PRN Reason Stop Dose Admin Aspirin 81 mg 09/24/16 18:30 10/22/16 11:56 Aspirin Chewable PO Not Given DAILY [facility] Budesonide 0.5 mg 10/02/16 20:00 10/23/16 07:45 Pulmicort Respules INH 0.5 mg RQ12 KAILA Administration Clopidogrel Bisulfate 75 mg 09/26/16 10:00 10/22/16 11:56 Plavix PO Not Given DAILY KAILA Diltiazem HCl 60 mg 10/10/16 14:00 10/22/16 22:10 Cardizem GT 60 mg QID KAILA Administration Famotidine 20 mg 10/23/16 10:00 Pepcid PO DAILY KAILA Propofol 100 mls @ 2.327 mls/hr 10/22/16 11:43 10/22/16 13:00 Diprivan IV 4.654 mls/hr .Q24H PRN Administration TITRATE PER MD ORDER Protocol 5 MCG/KG/MIN Lactated Ringer's 1,000 mls @ 100 mls/hr 10/22/16 15:43 10/23/16 04:23 Lactated Ringer's IV 100 mls/hr .Q10H KAILA Administration Polyethylene Glycol 17 gm 10/06/16 10:00 10/15/16 11:19 Miralax PO Not Given DAILY KAILA Potassium Chloride 40 meq 10/19/16 10:00 10/22/16 11:56 Potassium Chloride Oral Soln PO Not Given DAILY KAILA Rosuvastatin Calcium 10 mg 09/23/16 22:00 10/22/16 21:09 Crestor PO 10 mg HS KAILA Administration Tiotropium [place] 18 mcg 10/19/16 08:00 10/23/16 07:45 Spiriva INH Not Given RQ24 KAILA - Patient Studies Lab Studies: Microbiology Studies 10/20/16 17:36 Stool Culture - Final Stool NO SALMONELLA, SHIGELLA OR CAMPYLOBACTER ISOLATED. Lab Studies 10/23/16 10/23/16 10/22/16 Range/Units 05:55 05:15 14:23 WBC 5.4 (4.8-10.8) K/uL RBC 2.31 L (3.80-5.20) Mil/uL Hgb 6.8 L (11.0-16.0) g/dL Hct 20.7 L (34.0-47.0) % MCV 89.5 (81.0-99.0) fL MCH 29.5 (27.0-31.0) pg MCHC 32.9 L (33.0-37.0) g/dL RDW 15.4 H (11.5-14.5) % Plt Count 110 L (130-400) K/uL MPV 10.6 (7.2-11.7) fL Neut % (Auto) 74.3 (50.0-75.0) % Lymph % (Auto) 20.3 (20.0-40.0) % [place] % (Auto) 5.0 (0.0-10.0) % Eos % (Auto) 0.3 (0.0-4.0) % Baso % (Auto) 0.1 (0.0-2.0) % Neut # 4.0 (1.8-7.0) K/uL Lymph # 1.1 (1.0-4.3) K/uL [place] # 0.3 (0.0-0.8) K/uL Eos # 0.0 (0.0-0.7) K/uL Baso # 0.0 (0.0-0.2) K/uL Puncture Site Rr Rra pCO2 31 L 31 L (35-45) mm/Hg pO2 226 H 112 H (80-100) mm/Hg HCO3 20.6 L 19.3 L (21-28) mmol/L ABG pH 7.39 7.36 (7.35-7.45) ABG Total CO2 19.8 L 18.5 L (22-28) mmol/L ABG O2 Saturation 100.0 H 100.1 H (95-98) % ABG Base Excess -5.6 L -7.2 L (-2.0-3.0) mmol/L ABG Hemoglobin 6.8 L 8.1 L (11.7-17.4) g/dL ABG Carboxyhemoglobin 1.1 1.6 H (0.5-1.5) % POC ABG HHb (Measured) 0.0 -0.1 L (0.0-5.0) % ABG Methemoglobin 0.8 0.8 (0.0-3.0) % Fish Test Pos Po A-a O2 Difference 306.0 420.0 mm/Hg Respiratory Index 1.4 3.8 Hgb O2 Saturation 98.1 H 97.7 (95.0-98.0) % Liter Flow Mechanical Rate 16 16 FiO2 80.0 80.0 % Tidal Volume 500 500 PEEP 5 5 Sodium 146 (132-148) mmol/L Potassium 2.9 L (3.6-5.2) mmol/L Chloride 112 H (98-107) mmol/L Carbon Dioxide 20 L (22-30) mmol/L Anion Gap 17 (10-20) BUN 47 H (7-17) mg/dL Creatinine 2.3 H (0.7-1.2) MG/DL Est GFR ( Amer) 24 Est GFR (Non-Af Amer) 20 POC Glucose (mg/dL) (65-110) mg/dL Random Glucose 76 (65-105) mg/dL Calcium 7.0 L (8.6-10.4) mg/dl Phosphorus 3.9 (2.5-4.5) mg/dL Magnesium 1.5 L (1.6-2.3) mg/dL Total Bilirubin 0.6 (0.2-1.3) mg/dL AST 27 (14-36) U/L ALT 38 (9-52) U/L Alkaline Phosphatase 41 (38-126) U/L Total Protein 3.6 L (6.3-8.3) g/dL Albumin 1.8 L D (3.5-5.0) g/dL Globulin 1.8 L (2.2-3.9) gm/dL Albumin/Globulin Ratio 1.0 (1.0-2.1) 10/22/16 10/22/16 10/22/16 Range/Units 14:11 12:54 10:57 WBC 5.2 (4.8-10.8) K/uL RBC 2.83 L (3.80-5.20) Mil/uL Hgb 8.3 L (11.0-16.0) g/dL Hct 25.6 L (34.0-47.0) % MCV 90.4 (81.0-99.0) fL MCH 29.5 (27.0-31.0) pg MCHC 32.6 L (33.0-37.0) g/dL RDW 15.6 H (11.5-14.5) % Plt Count 123 L (130-400) K/uL MPV 9.5 (7.2-11.7) fL Neut % (Auto) 85.5 H (50.0-75.0) % Lymph % (Auto) 11.1 L (20.0-40.0) % [place] % (Auto) 3.0 (0.0-10.0) % Eos % (Auto) 0.1 (0.0-4.0) % Baso % (Auto) 0.3 (0.0-2.0) % Neut # 4.4 (1.8-7.0) K/uL Lymph # 0.6 L (1.0-4.3) K/uL [place] # 0.2 (0.0-0.8) K/uL Eos # 0.0 (0.0-0.7) K/uL Baso # 0.0 (0.0-0.2) K/uL Puncture Site pCO2 (35-45) mm/Hg pO2 (80-100) mm/Hg HCO3 (21-28) mmol/L ABG pH (7.35-7.45) ABG Total CO2 (22-28) mmol/L ABG O2 Saturation (95-98) % ABG Base Excess (-2.0-3.0) mmol/L ABG Hemoglobin (11.7-17.4) g/dL ABG Carboxyhemoglobin (0.5-1.5) % POC ABG HHb (Measured) (0.0-5.0) % ABG Methemoglobin (0.0-3.0) % Fish Test A-a O2 Difference mm/Hg Respiratory Index Hgb O2 Saturation (95.0-98.0) % Liter Flow Mechanical Rate FiO2 % Tidal Volume PEEP Sodium 145 (132-148) mmol/L Potassium 3.3 L (3.6-5.2) mmol/L Chloride 118 H (98-107) mmol/L Carbon Dioxide 18 L (22-30) mmol/L Anion Gap 12 (10-20) BUN 44 H (7-17) mg/dL Creatinine 2.2 H (0.7-1.2) MG/DL Est GFR ( Amer) 26 Est GFR (Non-Af Amer) 21 POC Glucose (mg/dL) 140 H 161 H (65-110) mg/dL Random Glucose 99 (65-105) mg/dL Calcium 7.5 L (8.6-10.4) mg/dl Phosphorus (2.5-4.5) mg/dL Magnesium (1.6-2.3) mg/dL Total Bilirubin (0.2-1.3) mg/dL AST (14-36) U/L ALT (9-52) U/L Alkaline Phosphatase (38-126) U/L Total Protein (6.3-8.3) g/dL Albumin (3.5-5.0) g/dL Globulin (2.2-3.9) gm/dL Albumin/Globulin Ratio (1.0-2.1) 10/22/16 Range/Units 10:56 WBC (4.8-10.8) K/uL RBC (3.80-5.20) Mil/uL Hgb (11.0-16.0) g/dL Hct (34.0-47.0) % MCV (81.0-99.0) fL MCH (27.0-31.0) pg MCHC (33.0-37.0) g/dL RDW (11.5-14.5) % Plt Count (130-400) K/uL MPV (7.2-11.7) fL Neut % (Auto) (50.0-75.0) % Lymph % (Auto) (20.0-40.0) % [place] % (Auto) (0.0-10.0) % Eos % (Auto) (0.0-4.0) % Baso % (Auto) (0.0-2.0) % Neut # (1.8-7.0) K/uL Lymph # (1.0-4.3) K/uL [place] # (0.0-0.8) K/uL Eos # (0.0-0.7) K/uL Baso # (0.0-0.2) K/uL Puncture Site Lra pCO2 52 H (35-45) mm/Hg pO2 161 H (80-100) mm/Hg HCO3 20.6 L (21-28) mmol/L ABG pH 7.23 L (7.35-7.45) ABG Total CO2 23.4 (22-28) mmol/L ABG O2 Saturation 100.9 H (95-98) % ABG Base Excess -5.6 L (-2.0-3.0) mmol/L ABG Hemoglobin 8.4 L (11.7-17.4) g/dL ABG Carboxyhemoglobin 2.3 H (0.5-1.5) % POC ABG HHb (Measured) -0.9 L (0.0-5.0) % ABG Methemoglobin 0.8 (0.0-3.0) % Fish Test Pos A-a O2 Difference 487.0 mm/Hg Respiratory Index 3.0 Hgb O2 Saturation 97.8 (95.0-98.0) % Liter Flow 12.0 Mechanical Rate FiO2 100.0 % Tidal Volume PEEP Sodium (132-148) mmol/L Potassium (3.6-5.2) mmol/L Chloride (98-107) mmol/L Carbon Dioxide (22-30) mmol/L Anion Gap (10-20) BUN (7-17) mg/dL Creatinine (0.7-1.2) MG/DL Est GFR ( Amer) Est GFR (Non-Af Amer) POC Glucose (mg/dL) (65-110) mg/dL Random Glucose (65-105) mg/dL Calcium (8.6-10.4) mg/dl Phosphorus (2.5-4.5) mg/dL Magnesium (1.6-2.3) mg/dL Total Bilirubin (0.2-1.3) mg/dL AST (14-36) U/L ALT (9-52) U/L Alkaline Phosphatase (38-126) U/L Total Protein (6.3-8.3) g/dL Albumin (3.5-5.0) g/dL Globulin (2.2-3.9) gm/dL Albumin/Globulin Ratio (1.0-2.1) Laboratory Results - last 24 hr 10/22/16 10/22/16 10/22/16 10:56 10:57 12:54 WBC RBC Hgb Hct MCV MCH MCHC RDW Plt Count MPV Neut % (Auto) Lymph % (Auto) [place] % (Auto) Eos % (Auto) Baso % (Auto) Neut # Lymph # [place] # Eos # Baso # Puncture Site Lra pCO2 52 H pO2 161 H HCO3 20.6 L ABG pH 7.23 L ABG Total CO2 23.4 ABG O2 Saturation 100.9 H ABG Base Excess -5.6 L ABG Hemoglobin 8.4 L ABG Carboxyhemoglobin 2.3 H POC ABG HHb (Measured) -0.9 L ABG Methemoglobin 0.8 Fish Test Pos A-a O2 Difference 487.0 Respiratory Index 3.0 Hgb O2 Saturation 97.8 Liter Flow 12.0 Mechanical Rate FiO2 100.0 Tidal Volume PEEP Sodium Potassium Chloride Carbon Dioxide Anion Gap BUN Creatinine Est GFR ( Amer) Est GFR (Non-Af Amer) POC Glucose (mg/dL) 161 H 140 H Random Glucose Calcium Phosphorus Magnesium Total Bilirubin AST ALT Alkaline Phosphatase Total Protein Albumin Globulin Albumin/Globulin Ratio 10/22/16 10/22/16 10/23/16 14:11 14:23 05:15 WBC 5.2 RBC 2.83 L Hgb 8.3 L Hct 25.6 L MCV 90.4 MCH 29.5 MCHC 32.6 L RDW 15.6 H Plt Count 123 L MPV 9.5 Neut % (Auto) 85.5 H Lymph % (Auto) 11.1 L [place] % (Auto) 3.0 Eos % (Auto) 0.1 Baso % (Auto) 0.3 Neut # 4.4 Lymph # 0.6 L [place] # 0.2 Eos # 0.0 Baso # 0.0 Puncture Site Rra Rr pCO2 31 L 31 L pO2 112 H 226 H HCO3 19.3 L 20.6 L ABG pH 7.36 7.39 ABG Total CO2 18.5 L 19.8 L ABG O2 Saturation 100.1 H 100.0 H ABG Base Excess -7.2 L -5.6 L ABG Hemoglobin 8.1 L 6.8 L ABG Carboxyhemoglobin 1.6 H 1.1 POC ABG HHb (Measured) -0.1 L 0.0 ABG Methemoglobin 0.8 0.8 Fish Test Po Pos A-a O2 Difference 420.0 306.0 Respiratory Index 3.8 1.4 Hgb O2 Saturation 97.7 98.1 H Liter Flow Mechanical Rate 16 16 FiO2 80.0 80.0 Tidal Volume 500 500 PEEP 5 5 Sodium 145 Potassium 3.3 L Chloride 118 H Carbon Dioxide 18 L Anion Gap 12 BUN 44 H Creatinine 2.2 H Est GFR ( Amer) 26 Est GFR (Non-Af Amer) 21 POC Glucose (mg/dL) Random Glucose 99 Calcium 7.5 L Phosphorus Magnesium Total Bilirubin AST ALT Alkaline Phosphatase Total Protein Albumin Globulin Albumin/Globulin Ratio 10/23/16 05:55 WBC 5.4 RBC 2.31 L Hgb 6.8 L Hct 20.7 L MCV 89.5 MCH 29.5 MCHC 32.9 L RDW 15.4 H Plt Count 110 L MPV 10.6 Neut % (Auto) 74.3 Lymph % (Auto) 20.3 [place] % (Auto) 5.0 Eos % (Auto) 0.3 Baso % (Auto) 0.1 Neut # 4.0 Lymph # 1.1 [place] # 0.3 Eos # 0.0 Baso # 0.0 Puncture Site pCO2 pO2 HCO3 ABG pH ABG Total CO2 ABG O2 Saturation ABG Base Excess ABG Hemoglobin ABG Carboxyhemoglobin POC ABG HHb (Measured) ABG Methemoglobin Fish Test A-a O2 Difference Respiratory Index Hgb O2 Saturation Liter Flow Mechanical Rate FiO2 Tidal Volume PEEP Sodium 146 Potassium 2.9 L Chloride 112 H Carbon Dioxide 20 L Anion Gap 17 BUN 47 H Creatinine 2.3 H Est GFR ( Amer) 24 Est GFR (Non-Af Amer) 20 POC Glucose (mg/dL) Random Glucose 76 Calcium 7.0 L Phosphorus 3.9 Magnesium 1.5 L Total Bilirubin 0.6 AST 27 ALT 38 Alkaline Phosphatase 41 Total Protein 3.6 L Albumin 1.8 L D Globulin 1.8 L Albumin/Globulin Ratio 1.0 Fingerstick Blood Sugar Results: 127 Review of Systems - Review of Systems Systems not reviewed;Unavailable: Intubated Review of Systems: see subjective Critical Care Progress Note - Nutrition Nutrition: Nutrition Category Date Time Status Liquid Diet [DIET] Diets 10/18/16 Breakfast Active Assessment/Plan - Assessment and Plan (Free Text) Assessment: 86 F with a past medical history of COPD secondary to chronic tobacco use admitted on 09/23 for respiratory distress. Patient found on the floor with shallow breathing warranting re-consult of critical care team for intubation and continued care 10/22. This is the patient's third time being intubated during the hospital stay. Palliative care on board with family decision for DNR/ DNI measures. Plan: Neuro: Neurochecks q6 Sedation: Propofol . Will titrate down Cardio: Diltiazem 60 mg GT QID KAILA Rosuvastatin 10 mg PO HS KAILA ASA 81 mg Plavix Pulm: COPD Maintain O2 sat >92% Budesonide 0.5 mg INH Vent Settings: 10/23 PRVC FiO2 50%, RR 16, PEEP 5, TV 500 10/22 PRVC FiO2 80%, RR 16, PEEP 5, TV 500 AB/29 pH 7.39, CO2 31, O2 226, HCO3 20.6 10/22 pH 7.36, CO2 31, O2 112, HCO3 19.3 Imagin/29 CXR: prominent bibasilar airspace opacities with bilateral pleural effusions. biapical pleural thickening with upper lobe granulomatous changes. Tiotropium [place] 18 mcg INH RQ24 KAILA Endo: Diabetes Maintain euglycemia Novolin R SS Accucheck q6 GI: Diet: Isosource 1.5 Goal 30 cc/hr Supplements: Ensure Enlive Chocolate 3 per day Albumin 1.8 Monitor CMP 10/15: 9 cm cecal dilation without evidence of obstruction 10/11 XRAY Abdominal Series: mildly dilated loops of bowel in RUQ w/ non- specific gas Rectal Tube inserted 10/16 Miralax 17 gm PO daily : I/Os 3225.6/320 = 2905.6 Vaginal Bleeding - No further events noted yet. 10/22 DRYING OVEN ATTENDANT consult - No active bleeding on pad. Would recommend evaluation when patient is conscious and stable. Monitor I/Os Maintain Perez care Nephro: BUN/Cr: 47/2.3 (44/2.2 > 47/2.3) Monitor I/Os Hypokalemia - repleted Hypomagnesemia- repleted Heme: H&H: 6.8/20.7 (8.3/25.6 > 6.8/20.7) COA/28 INR: 1.2, PT 13.8, PTT 34 Daily CBC ID: WBC [id number] Monitor CBC MSK: PT/OT eval and treat Social Work: Brother Anthony Ellis and niece Felicia met with Mar [facility] and discussed end of life care discussion. Patient's family chose DNR/ DNI. Family is asking for extubation morning 10/24. POLST forms signed. Prophylaxis: DVT: SCDs, Heparin contraindicated due to vaginal bleeding GI: Famotidine 20 mg PO daily <Cherie Shelley - Last Filed: 10/23/16 14:16> CCU Objective - Vital Signs / Intake & Output Intake and Output (Last 8hrs): Intake & Output 10/22/16 10/23/16 10/23/16 22:59 06:59 14:59 Intake Total 1383.6 833.6 104.2 Output Total 20 300 Balance 1363.6 533.6 104.2 Intake: Intake, IV Amount 1333.6 833.6 104.2 Right Wrist 1000 Right Medial Port Wrist 21.0 Left Proximal Port 300 800 100 External Jugular Left Distal Port External 12.6 33.6 4.2 Jugular Other 50 Output: Urine 20 150 Urethral (Perez) 20 150 Stool 150 - Medications Active Medications: Active Medications Generic Name Dose Route Start Last Admin Trade Name Freq PRN Reason Stop Dose Admin Aspirin 81 mg 09/24/16 18:30 10/23/16 11:08 Aspirin Chewable PO 81 mg DAILY KAILA Administration Budesonide 0.5 mg 10/02/16 20:00 10/23/16 07:45 Pulmicort Respules INH 0.5 mg RQ12 KAILA Administration Clopidogrel Bisulfate 75 mg 09/26/16 10:00 10/23/16 11:08 Plavix PO 75 mg DAILY KAILA Administration Diltiazem HCl 60 mg 10/10/16 14:00 10/23/16 11:00 Cardizem GT Not Given QID KAILA Famotidine 20 mg 10/23/16 10:00 10/23/16 11:08 Pepcid PO 20 mg DAILY KAILA Administration Propofol 100 mls @ 2.327 mls/hr 10/22/16 11:43 10/22/16 13:00 Diprivan IV 4.654 mls/hr .Q24H PRN Administration TITRATE PER MD ORDER Protocol 5 MCG/KG/MIN Polyethylene Glycol 17 gm 10/06/16 10:00 10/15/16 11:19 Miralax PO Not Given DAILY [facility] Potassium Chloride 40 meq 10/19/16 10:00 10/23/16 11:15 Potassium Chloride Oral Soln PO 40 meq DAILY KAILA Administration Rosuvastatin Calcium 10 mg 09/23/16 22:00 10/22/16 21:09 Crestor PO 10 mg HS KAILA Administration Tiotropium [place] 18 mcg 10/19/16 08:00 10/23/16 07:45 Spiriva INH Not Given RQ24 KAILA - Patient Studies Lab Studies: Microbiology Studies 10/20/16 17:36 Stool Culture - Final Stool NO SALMONELLA, SHIGELLA OR CAMPYLOBACTER ISOLATED. Lab Studies 10/23/16 10/23/16 10/23/16 Range/Units 12:46 05:55 05:15 WBC 5.4 (4.8-10.8) K/uL RBC 2.31 L (3.80-5.20) Mil/uL Hgb 6.8 L (11.0-16.0) g/dL Hct 20.7 L (34.0-47.0) % MCV 89.5 (81.0-99.0) fL MCH 29.5 (27.0-31.0) pg MCHC 32.9 L (33.0-37.0) g/dL RDW 15.4 H (11.5-14.5) % Plt Count 110 L (130-400) K/uL MPV 10.6 (7.2-11.7) fL Neut % (Auto) 74.3 (50.0-75.0) % Lymph % (Auto) 20.3 (20.0-40.0) % [place] % (Auto) 5.0 (0.0-10.0) % Eos % (Auto) 0.3 (0.0-4.0) % Baso % (Auto) 0.1 (0.0-2.0) % Neut # 4.0 (1.8-7.0) K/uL Lymph # 1.1 (1.0-4.3) K/uL [place] # 0.3 (0.0-0.8) K/uL Eos # 0.0 (0.0-0.7) K/uL Baso # 0.0 (0.0-0.2) K/uL Puncture Site Rr pCO2 31 L (35-45) mm/Hg pO2 226 H (80-100) mm/Hg HCO3 20.6 L (21-28) mmol/L ABG pH 7.39 (7.35-7.45) ABG Total CO2 19.8 L (22-28) mmol/L ABG O2 Saturation 100.0 H (95-98) % ABG Base Excess -5.6 L (-2.0-3.0) mmol/L ABG Hemoglobin 6.8 L (11.7-17.4) g/dL ABG Carboxyhemoglobin 1.1 (0.5-1.5) % POC ABG HHb (Measured) 0.0 (0.0-5.0) % ABG Methemoglobin 0.8 (0.0-3.0) % Fish Test Pos A-a O2 Difference 306.0 mm/Hg Respiratory Index 1.4 Hgb O2 Saturation 98.1 H (95.0-98.0) % Mechanical Rate 16 FiO2 80.0 % Tidal Volume 500 PEEP 5 Sodium 146 (132-148) mmol/L Potassium 2.9 L (3.6-5.2) mmol/L Chloride 112 H (98-107) mmol/L Carbon Dioxide 20 L (22-30) mmol/L Anion Gap 17 (10-20) BUN 47 H (7-17) mg/dL Creatinine 2.3 H (0.7-1.2) MG/DL Est GFR ( Amer) 24 Est GFR (Non-Af Amer) 20 Random Glucose 76 (65-105) mg/dL Calcium 7.0 L (8.6-10.4) mg/dl Phosphorus 3.9 (2.5-4.5) mg/dL Magnesium 1.5 L (1.6-2.3) mg/dL Total Bilirubin 0.6 (0.2-1.3) mg/dL AST 27 (14-36) U/L ALT 38 (9-52) U/L Alkaline Phosphatase 41 (38-126) U/L Total Protein 3.6 L (6.3-8.3) g/dL Albumin 1.8 L D (3.5-5.0) g/dL Globulin 1.8 L (2.2-3.9) gm/dL Albumin/Globulin Ratio 1.0 (1.0-2.1) Blood Type O POSITIVE Antibody Screen Negative 10/22/16 10/22/16 Range/Units 14:23 14:11 WBC 5.2 (4.8-10.8) K/uL RBC 2.83 L (3.80-5.20) Mil/uL Hgb 8.3 L (11.0-16.0) g/dL Hct 25.6 L (34.0-47.0) % MCV 90.4 (81.0-99.0) fL MCH 29.5 (27.0-31.0) pg MCHC 32.6 L (33.0-37.0) g/dL RDW 15.6 H (11.5-14.5) % Plt Count 123 L (130-400) K/uL MPV 9.5 (7.2-11.7) fL Neut % (Auto) 85.5 H (50.0-75.0) % Lymph % (Auto) 11.1 L (20.0-40.0) % [place] % (Auto) 3.0 (0.0-10.0) % Eos % (Auto) 0.1 (0.0-4.0) % Baso % (Auto) 0.3 (0.0-2.0) % Neut # 4.4 (1.8-7.0) K/uL Lymph # 0.6 L (1.0-4.3) K/uL [place] # 0.2 (0.0-0.8) K/uL Eos # 0.0 (0.0-0.7) K/uL Baso # 0.0 (0.0-0.2) K/uL Puncture Site Rra pCO2 31 L (35-45) mm/Hg pO2 112 H (80-100) mm/Hg HCO3 19.3 L (21-28) mmol/L ABG pH 7.36 (7.35-7.45) ABG Total CO2 18.5 L (22-28) mmol/L ABG O2 Saturation 100.1 H (95-98) % ABG Base Excess -7.2 L (-2.0-3.0) mmol/L ABG Hemoglobin 8.1 L (11.7-17.4) g/dL ABG Carboxyhemoglobin 1.6 H (0.5-1.5) % POC ABG HHb (Measured) -0.1 L (0.0-5.0) % ABG Methemoglobin 0.8 (0.0-3.0) % Fish Test Po A-a O2 Difference 420.0 mm/Hg Respiratory Index 3.8 Hgb O2 Saturation 97.7 (95.0-98.0) % Mechanical Rate 16 FiO2 80.0 % Tidal Volume 500 PEEP 5 Sodium 145 (132-148) mmol/L Potassium 3.3 L (3.6-5.2) mmol/L Chloride 118 H (98-107) mmol/L Carbon Dioxide 18 L (22-30) mmol/L Anion Gap 12 (10-20) BUN 44 H (7-17) mg/dL Creatinine 2.2 H (0.7-1.2) MG/DL Est GFR ( Amer) 26 Est GFR (Non-Af Amer) 21 Random Glucose 99 (65-105) mg/dL Calcium 7.5 L (8.6-10.4) mg/dl Phosphorus (2.5-4.5) mg/dL Magnesium (1.6-2.3) mg/dL Total Bilirubin (0.2-1.3) mg/dL AST (14-36) U/L ALT (9-52) U/L Alkaline Phosphatase (38-126) U/L Total Protein (6.3-8.3) g/dL Albumin (3.5-5.0) g/dL Globulin (2.2-3.9) gm/dL Albumin/Globulin Ratio (1.0-2.1) Blood Type Antibody Screen Laboratory Results - last 24 hr 10/22/16 10/22/16 10/23/16 14:11 14:23 05:15 WBC 5.2 RBC 2.83 L Hgb 8.3 L Hct 25.6 L MCV 90.4 MCH 29.5 MCHC 32.6 L RDW 15.6 H Plt Count 123 L MPV 9.5 Neut % (Auto) 85.5 H Lymph % (Auto) 11.1 L [place] % (Auto) 3.0 Eos % (Auto) 0.1 Baso % (Auto) 0.3 Neut # 4.4 Lymph # 0.6 L [place] # 0.2 Eos # 0.0 Baso # 0.0 Puncture Site Rra Rr pCO2 31 L 31 L pO2 112 H 226 H HCO3 19.3 L 20.6 L ABG pH 7.36 7.39 ABG Total CO2 18.5 L 19.8 L ABG O2 Saturation 100.1 H 100.0 H ABG Base Excess -7.2 L -5.6 L ABG Hemoglobin 8.1 L 6.8 L ABG Carboxyhemoglobin 1.6 H 1.1 POC ABG HHb (Measured) -0.1 L 0.0 ABG Methemoglobin 0.8 0.8 Fish Test Po Pos A-a O2 Difference 420.0 306.0 Respiratory Index 3.8 1.4 Hgb O2 Saturation 97.7 98.1 H Mechanical Rate 16 16 FiO2 80.0 80.0 Tidal Volume 500 500 PEEP 5 5 Sodium 145 Potassium 3.3 L Chloride 118 H Carbon Dioxide 18 L Anion Gap 12 BUN 44 H Creatinine 2.2 H Est GFR ( Amer) 26 Est GFR (Non-Af Amer) 21 Random Glucose 99 Calcium 7.5 L Phosphorus Magnesium Total Bilirubin AST ALT Alkaline Phosphatase Total Protein Albumin Globulin Albumin/Globulin Ratio Blood Type Antibody Screen 10/23/16 10/23/16 05:55 12:46 WBC 5.4 RBC 2.31 L Hgb 6.8 L Hct 20.7 L MCV 89.5 MCH 29.5 MCHC 32.9 L RDW 15.4 H Plt Count 110 L MPV 10.6 Neut % (Auto) 74.3 Lymph % (Auto) 20.3 [place] % (Auto) 5.0 Eos % (Auto) 0.3 Baso % (Auto) 0.1 Neut # 4.0 Lymph # 1.1 [place] # 0.3 Eos # 0.0 Baso # 0.0 Puncture Site pCO2 pO2 HCO3 ABG pH ABG Total CO2 ABG O2 Saturation ABG Base Excess ABG Hemoglobin ABG Carboxyhemoglobin POC ABG HHb (Measured) ABG Methemoglobin Fish Test A-a O2 Difference Respiratory Index Hgb O2 Saturation Mechanical Rate FiO2 Tidal Volume PEEP Sodium 146 Potassium 2.9 L Chloride 112 H Carbon Dioxide 20 L Anion Gap 17 BUN 47 H Creatinine 2.3 H Est GFR ( Amer) 24 Est GFR (Non-Af Amer) 20 Random Glucose 76 Calcium 7.0 L Phosphorus 3.9 Magnesium 1.5 L Total Bilirubin 0.6 AST 27 ALT 38 Alkaline Phosphatase 41 Total Protein 3.6 L Albumin 1.8 L D Globulin 1.8 L Albumin/Globulin Ratio 1.0 Blood Type O POSITIVE Antibody Screen Negative Critical Care Progress Note - Nutrition Nutrition: Nutrition Category Date Time Status Liquid Diet [DIET] Diets 10/18/16 Breakfast Active Attending/Attestation - Attestation I have personally seen and examined this patient.: Yes I have fully participated in the care of the patient.: Yes I have reviewed all pertinent clinical information: Yes Notes (Text): 10/23/16 14:15 Patient seen and examined in the morning. Stable, co2 back to baseline, minimal ventilator settings. bp improved after fluids, but htc dropped, transfuse one unit of blood since bp on the lower side. Replace K po and mg IV. Plan to extubate tomorrow morning after transfusion.
[2016-10-23] MEDS: Potassium Chloride 20 mEq/15 ml LIQ UD PO SCH (11:15)
--- NOTE | 2016-10-23 11:25 | CP.PCM.PN ---
Subjective - Date & Time of Evaluation Date of Evaluation: 10/23/16 Time of Evaluation: 11:15 - Subjective Subjective: Pt was seen and examined at bedside, the pt remains intubated and sedated. ROS unobtainable. Pt is currently on PRVC RR 16, PEEP 5, TV 500, FiO2 30%. Family has signed DNR/DNI for patient. Objective - Vital Signs/Intake and Output Vital Signs (last 24 hours): Temp Pulse Resp BP Pulse Ox 98 F 84 16 114/65 100 10/23/16 04:00 10/23/16 07:00 10/23/16 07:00 10/23/16 06:59 10/23/16 07:00 Intake and Output: 10/23/16 10/23/16 06:59 18:59 Intake Total 1200.4 104.2 Output Total 300 Balance 900.4 104.2 - Medications Medications: Current Medications Aspirin (Aspirin Chewable) 81 mg PO DAILY [facility] Last Admin: 10/22/16 11:56 Dose: Not Given Budesonide (Pulmicort Respules) 0.5 mg INH RQ12 [facility] Last Admin: 10/23/16 07:45 Dose: 0.5 mg Clopidogrel Bisulfate (Plavix) 75 mg PO DAILY [facility] Last Admin: 10/22/16 11:56 Dose: Not Given Diltiazem HCl (Cardizem) 60 mg GT QID [facility] Last Admin: 10/22/16 22:10 Dose: 60 mg Famotidine (Pepcid) 20 mg PO DAILY [facility] Propofol (Diprivan) 100 mls @ 2.327 mls/hr IV .Q24H PRN; Protocol; 5 MCG/KG/MIN PRN Reason: TITRATE PER MD ORDER Last Admin: 10/22/16 13:00 Dose: 4.654 mls/hr Polyethylene Glycol (Miralax) 17 gm PO DAILY [facility] Last Admin: 10/15/16 11:19 Dose: Not Given Potassium Chloride (Potassium Chloride Oral Soln) 40 meq PO DAILY [facility] Last Admin: 10/22/16 11:56 Dose: Not Given Rosuvastatin Calcium (Crestor) 10 mg PO HS [facility] Last Admin: 10/22/16 21:09 Dose: 10 mg Tiotropium [place] (Spiriva) 18 mcg INH RQ24 [facility] Last Admin: 10/23/16 07:45 Dose: Not Given - Labs Labs: 10/23/16 05:55 10/23/16 05:55 PT 13.8 SECONDS (9.7-12.2) H 10/22/16 05:45 INR 1.2 10/22/16 05:45 APTT 34 SECONDS (21-34) 10/22/16 05:45 - Head Exam Head Exam: ATRAUMATIC, NORMAL INSPECTION - Respiratory Exam Additional comments: Patient is intubated on PRVC. - Cardiovascular Exam Cardiovascular Exam: +S1, +S2 - Neurological Exam Additional comments: Patient is sedated on propofol drip. - Skin Skin Exam: Dry, Normal Color, Warm Assessment and Plan (1) Acute respiratory failure with hypoxia and hypercarbia Assessment & Plan: -ABG today pCO2 31, PO2 226, pH 7.39, Total CO2 19.8L -CXR: moderate venous congestion, Prominent bibasilar airspace opacities w/ bilateral pleural effusions. -pt currently intubated and sedated -Patient DNR/DNI Status: Resolved (2) COPD (chronic obstructive pulmonary disease) Status: Chronic (3) Acute PR Status: Acute (4) Leucocytosis Status: Acute
--- NOTE | 2016-10-23 12:27 | CP.PCM.PN ---
Subjective - Date & Time of Evaluation Date of Evaluation: 10/23/16 Time of Evaluation: 12:26 - Subjective Subjective: intubated.more responsive. Objective - Vital Signs/Intake and Output Vital Signs (last 24 hours): Temp Pulse Resp BP Pulse Ox 98 F 84 16 114/65 100 10/23/16 04:00 10/23/16 07:00 10/23/16 07:00 10/23/16 06:59 10/23/16 07:00 Intake and Output: 10/23/16 10/23/16 06:59 18:59 Intake Total 1200.4 104.2 Output Total 300 Balance 900.4 104.2 - Medications Medications: Current Medications Aspirin (Aspirin Chewable) 81 mg PO DAILY [facility] Last Admin: 10/23/16 11:08 Dose: 81 mg Budesonide (Pulmicort Respules) 0.5 mg INH RQ12 [facility] Last Admin: 10/23/16 07:45 Dose: 0.5 mg Clopidogrel Bisulfate (Plavix) 75 mg PO DAILY [facility] Last Admin: 10/23/16 11:08 Dose: 75 mg Diltiazem HCl (Cardizem) 60 mg GT QID [facility] Last Admin: 10/23/16 11:00 Dose: Not Given Famotidine (Pepcid) 20 mg PO DAILY [facility] Last Admin: 10/23/16 11:08 Dose: 20 mg Propofol (Diprivan) 100 mls @ 2.327 mls/hr IV .Q24H PRN; Protocol; 5 MCG/KG/MIN PRN Reason: TITRATE PER MD ORDER Last Admin: 10/22/16 13:00 Dose: 4.654 mls/hr Magnesium Sulfate/Dextrose (Magnesium Sulfate 1 Gm/100 Ml D5w) 100 mls @ 200 mls/hr IVPB ONCE ONE Stop: 10/23/16 12:49 Polyethylene Glycol (Miralax) 17 gm PO DAILY [facility] Last Admin: 10/15/16 11:19 Dose: Not Given Potassium Chloride (Potassium Chloride Oral Soln) 40 meq PO DAILY [facility] Last Admin: 10/22/16 11:56 Dose: Not Given Rosuvastatin Calcium (Crestor) 10 mg PO HS [facility] Last Admin: 10/22/16 21:09 Dose: 10 mg Tiotropium [place] (Spiriva) 18 mcg INH RQ24 [facility] Last Admin: 10/23/16 07:45 Dose: Not Given - Labs Labs: 10/23/16 05:55 10/23/16 05:55 PT 13.8 SECONDS (9.7-12.2) H 10/22/16 05:45 INR 1.2 10/22/16 05:45 APTT 34 SECONDS (21-34) 10/22/16 05:45 - Constitutional Appears: Chronically Ill - Eye Exam Eye Exam: Normal appearance - Neck Exam Neck Exam: Normal Inspection - Respiratory Exam Respiratory Exam: Rhonchi - Cardiovascular Exam Cardiovascular Exam: REGULAR RHYTHM - GI/Abdominal Exam GI & Abdominal Exam: Soft Assessment and Plan - Assessment and Plan (Free Text) Assessment: copd.severe anaemia,k is low. diss with family.
--- NOTE | 2016-10-23 21:02 | CP.PCM.PN ---
Subjective - Date & Time of Evaluation Date of Evaluation: 10/23/16 Time of Evaluation: 21:02 - Subjective Subjective: pt seen and examined, follow up consult is dictated #[id number] Objective - Vital Signs/Intake and Output Vital Signs (last 24 hours): Temp Pulse Resp BP Pulse Ox 96.8 F L 80 15 124/65 96 10/23/16 20:00 10/23/16 20:32 10/23/16 20:32 10/23/16 20:33 10/23/16 20:32 Intake and Output: 10/23/16 10/24/16 18:59 06:59 Intake Total 928.2 296.8 Output Total 207 Balance 721.2 296.8 - Medications Medications: Current Medications Aspirin (Aspirin Chewable) 81 mg PO DAILY [facility] Last Admin: 10/23/16 11:08 Dose: 81 mg Budesonide (Pulmicort Respules) 0.5 mg INH RQ12 [facility] Last Admin: 10/23/16 19:46 Dose: 0.5 mg Clopidogrel Bisulfate (Plavix) 75 mg PO DAILY [facility] Last Admin: 10/23/16 11:08 Dose: 75 mg Diltiazem HCl (Cardizem) 60 mg GT QID [facility] Last Admin: 10/23/16 18:45 Dose: 60 mg Famotidine (Pepcid) 20 mg PO DAILY [facility] Last Admin: 10/23/16 11:08 Dose: 20 mg Propofol (Diprivan) 100 mls @ 2.327 mls/hr IV .Q24H PRN; Protocol; 5 MCG/KG/MIN PRN Reason: TITRATE PER MD ORDER Last Titration: 10/23/16 10:00 Dose: 18.04 mcg/kg/min Polyethylene Glycol (Miralax) 17 gm PO DAILY [facility] Last Admin: 10/15/16 11:19 Dose: Not Given Potassium Chloride (Potassium Chloride Oral Soln) 40 meq PO DAILY [facility] Last Admin: 10/23/16 11:15 Dose: 40 meq Rosuvastatin Calcium (Crestor) 10 mg PO HS [facility] Last Admin: 10/22/16 21:09 Dose: 10 mg Tiotropium [place] (Spiriva) 18 mcg INH RQ24 [facility] Last Admin: 10/23/16 07:45 Dose: Not Given - Labs Labs: 10/23/16 05:55 10/23/16 05:55 PT 13.8 SECONDS (9.7-12.2) H 10/22/16 05:45 INR 1.2 10/22/16 05:45 APTT 34 SECONDS (21-34) 10/22/16 05:45
--- NOTE | 2016-10-23 23:12 | PCM.URO ---
Urology Progress Note - General General: NPO (IN ICU INTUBATED ON VENTILATOR) - Subjective Abdominal Pain: No Flank Pain: No Hematuria: No - Objective Lab Results Last 24 Hours: Laboratory Results - last 24 hr 10/23/16 10/23/16 10/23/16 05:15 05:55 12:46 WBC 5.4 RBC 2.31 L Hgb 6.8 L Hct 20.7 L MCV 89.5 MCH 29.5 MCHC 32.9 L RDW 15.4 H Plt Count 110 L MPV 10.6 Neut % (Auto) 74.3 Lymph % (Auto) 20.3 [place] % (Auto) 5.0 Eos % (Auto) 0.3 Baso % (Auto) 0.1 Neut # 4.0 Lymph # 1.1 [place] # 0.3 Eos # 0.0 Baso # 0.0 Puncture Site Rr pCO2 31 L pO2 226 H HCO3 20.6 L ABG pH 7.39 ABG Total CO2 19.8 L ABG O2 Saturation 100.0 H ABG Base Excess -5.6 L ABG Hemoglobin 6.8 L ABG Carboxyhemoglobin 1.1 POC ABG HHb (Measured) 0.0 ABG Methemoglobin 0.8 Fish Test Pos A-a O2 Difference 306.0 Respiratory Index 1.4 Hgb O2 Saturation 98.1 H Mechanical Rate 16 FiO2 80.0 Tidal Volume 500 PEEP 5 Sodium 146 Potassium 2.9 L Chloride 112 H Carbon Dioxide 20 L Anion Gap 17 BUN 47 H Creatinine 2.3 H Est GFR ( Amer) 24 Est GFR (Non-Af Amer) 20 Random Glucose 76 Calcium 7.0 L Phosphorus 3.9 Magnesium 1.5 L Total Bilirubin 0.6 AST 27 ALT 38 Alkaline Phosphatase 41 Total Protein 3.6 L Albumin 1.8 L D Globulin 1.8 L Albumin/Globulin Ratio 1.0 Blood Type O POSITIVE Antibody Screen Negative Intake & Output: Intake & Output 10/23/16 10/23/16 10/24/16 06:59 18:59 06:59 Intake Total 1200.4 928.2 432.0 Output Total 300 207 Balance 900.4 721.2 432.0 Intake: Intake, IV Amount 1150.4 688.2 42.0 Right Medial Port Wrist 4.2 Left Proximal Port 1100 600 External Jugular Left Distal Port External 46.2 88.2 42.0 Jugular Tube Feeding 60 100 Blood Product 160 240 Apheresis Rbc Cp2d As3 Lr 160 120 2nd Unit [id number] Other 50 20 50 Apheresis Rbc Cp2d As3 Lr 20 2nd Unit [id number] Output: Urine 150 207 Urethral (Antony) 150 207 Stool 150 Vital Signs: Vital Signs - 24 hr 10/22/16 10/22/16 10/22/16 23:30 23:32 23:49 Temperature Pulse Rate 104 H 103 H 105 H Respiratory 16 16 16 Rate Blood Pressure 111/75 O2 Sat by Pulse 96 96 95 Oximetry 10/22/16 10/23/16 10/23/16 23:55 00:00 00:30 Temperature 98.7 F Pulse Rate 103 H 107 H 92 H Respiratory 16 17 16 Rate Blood Pressure O2 Sat by Pulse 94 L 92 L 98 Oximetry 10/23/16 10/23/16 10/23/16 00:33 01:00 01:05 Temperature Pulse Rate 94 H 93 H 93 H Respiratory 16 17 16 Rate Blood Pressure 118/70 O2 Sat by Pulse 98 100 99 Oximetry 10/23/16 10/23/16 10/23/16 01:30 01:32 02:00 Temperature Pulse Rate 96 H 96 H 92 H Respiratory 16 16 16 Rate Blood Pressure 123/76 O2 Sat by Pulse 100 100 100 Oximetry 10/23/16 10/23/16 10/23/16 02:30 02:33 02:36 Temperature Pulse Rate 89 132 H 87 Respiratory 16 14 16 Rate Blood Pressure 127/63 O2 Sat by Pulse 95 97 100 Oximetry 10/23/16 10/23/16 10/23/16 03:00 03:01 03:30 Temperature Pulse Rate 119 H 91 H 88 Respiratory 16 16 16 Rate Blood Pressure O2 Sat by Pulse 100 100 100 Oximetry 10/23/16 10/23/16 10/23/16 03:33 04:00 04:11 Temperature 98 F Pulse Rate 89 90 96 H Respiratory 16 16 16 Rate Blood Pressure 117/65 O2 Sat by Pulse 100 100 100 Oximetry 10/23/16 10/23/16 10/23/16 04:30 04:33 05:00 Temperature Pulse Rate 86 115 H 87 Respiratory 16 14 16 Rate Blood Pressure 122/86 O2 Sat by Pulse 98 99 100 Oximetry 10/23/16 10/23/16 10/23/16 05:20 05:30 05:33 Temperature Pulse Rate 90 91 H 90 Respiratory 16 16 16 Rate Blood Pressure 109/62 O2 Sat by Pulse 100 100 100 Oximetry 10/23/16 10/23/16 10/23/16 06:00 06:01 06:30 Temperature Pulse Rate 89 148 H 91 H Respiratory 16 15 16 Rate Blood Pressure O2 Sat by Pulse 100 100 100 Oximetry 10/23/16 10/23/16 10/23/16 06:33 06:59 07:00 Temperature Pulse Rate 88 85 84 Respiratory 16 16 16 Rate Blood Pressure 114/65 114/65 O2 Sat by Pulse 100 100 100 Oximetry 10/23/16 10/23/16 10/23/16 08:00 08:06 08:33 Temperature 97.6 F Pulse Rate 93 H Respiratory 16 Rate Blood Pressure 114/76 104/59 L O2 Sat by Pulse 100 Oximetry 10/23/16 10/23/16 10/23/16 09:33 10:33 11:30 Temperature Pulse Rate 83 90 90 Respiratory 15 13 17 Rate Blood Pressure 108/61 95/62 L O2 Sat by Pulse 96 95 Oximetry 10/23/16 10/23/16 10/23/16 11:35 12:00 12:33 Temperature 97.6 F Pulse Rate 89 76 Respiratory 21 14 Rate Blood Pressure 127/82 96/56 L O2 Sat by Pulse 91 L 96 Oximetry 10/23/16 10/23/16 10/23/16 13:32 14:33 15:33 Temperature Pulse Rate 76 71 118 H Respiratory 14 14 16 Rate Blood Pressure 111/69 103/67 99/66 L O2 Sat by Pulse 96 96 99 Oximetry 10/23/16 10/23/16 10/23/16 15:46 16:00 16:15 Temperature 96.7 F L 96.8 F L Pulse Rate 83 89 88 Respiratory 15 15 18 Rate Blood Pressure 99/66 L 105/59 L O2 Sat by Pulse 98 98 Oximetry 10/23/16 10/23/16 10/23/16 16:17 16:30 16:31 Temperature 96.7 F L Pulse Rate 100 H 87 87 Respiratory 18 18 19 Rate Blood Pressure 105/59 L 120/59 L 120/59 L O2 Sat by Pulse 98 98 98 Oximetry 10/23/16 10/23/16 10/23/16 16:33 16:58 17:00 Temperature 97.3 F L Pulse Rate 89 87 116 H Respiratory 16 18 17 Rate Blood Pressure 114/66 113/65 113/65 O2 Sat by Pulse 99 98 99 Oximetry 10/23/16 10/23/16 10/23/16 17:30 17:33 18:00 Temperature 96.8 F L Pulse Rate 110 H 85 86 Respiratory 20 15 15 Rate Blood Pressure 103/64 131/67 O2 Sat by Pulse 97 98 98 Oximetry 10/23/16 10/23/16 10/23/16 18:01 18:30 18:33 Temperature Pulse Rate 85 81 79 Respiratory 15 14 14 Rate Blood Pressure 131/67 131/67 O2 Sat by Pulse 97 96 95 Oximetry 10/23/16 10/23/16 10/23/16 19:00 19:30 19:33 Temperature Pulse Rate 83 82 84 Respiratory 14 14 14 Rate Blood Pressure 133/70 O2 Sat by Pulse 96 94 L 95 Oximetry 10/23/16 10/23/16 10/23/16 19:45 20:00 20:30 Temperature 96.8 F L 96.8 F L Pulse Rate 82 80 81 Respiratory 14 14 15 Rate Blood Pressure 133/70 O2 Sat by Pulse 95 95 Oximetry 10/23/16 10/23/16 10/23/16 20:32 20:33 21:00 Temperature Pulse Rate 80 82 79 Respiratory 15 16 15 Rate Blood Pressure 124/65 124/65 O2 Sat by Pulse 96 95 96 Oximetry 10/23/16 10/23/16 10/23/16 21:21 21:30 21:33 Temperature Pulse Rate 83 86 86 Respiratory 16 20 20 Rate Blood Pressure 118/63 O2 Sat by Pulse 97 97 97 Oximetry 10/23/16 10/23/16 10/23/16 22:00 22:02 22:30 Temperature Pulse Rate 80 80 78 Respiratory 15 16 16 Rate Blood Pressure O2 Sat by Pulse 93 L 93 L 94 L Oximetry 10/23/16 10/23/16 22:33 23:00 Temperature Pulse Rate 85 84 Respiratory 22 20 Rate Blood Pressure 120/61 O2 Sat by Pulse 93 L 94 L Oximetry - Physical Exam Abdominal Exam: Soft, Non-Tender, Non-Distended Back: No CVA Tenderness Urinary Catheter Draining Well: Yes Urine Color: Yellow - Plan Catheter Care: Yes Intake & Output: Yes Additional Information: IMP: VAGINAL BLEEDING - LESS. NO HEMATURIA AT PRESENT. ANEMIA. AZOTEMIA. RESP FAILURE. REC/PLAN. PER ICU CARE. DISCUSSED W ELECTRICITY TRADING ANALYST - Date & Time of Note Date: 10/23/16 Time: 09:20
--- NOTE | 2016-10-24 02:29 | PN ---
DATE: 10/23/2016 The patient is located in ICU bed 10. REQUESTED BY: Dr. Gianni Pace. HISTORY OF PRESENT ILLNESS: The patient is an 86-year-old female with a past medical histor y significant for COPD, status post intubation and extubation and transferred to medical floor with a trial fibrillation and status post left thoracentesis. On 10/14/2016 A fib with increased BUN and crea tinine, was transferred back to ICU 2 days ago status post intubation again. The patient is on ventil ator, tried to open eyes to tactile stimuli, status post transfusion of 1 unit of packed RBC transfus ion this morning and also the patient was supplemented potassium this morning. PHYSICAL EXAMINATION: VITAL SIGNS: As follows: Blood pressure 120/61, pulse 87, respirations 16, saturation 94% and tempe rature 96.8. GENERAL: The patient is an 86-year-old elderly female on ventilator. HEENT: Pupils normal, reactive to light and accommodation. Conjunctivae pink. Sclerae anicteric. On ventilator. LUNGS: Symmetric on both sides. Bilateral breath sounds present. Occasional basal crackles present . CARDIOVASCULAR: [place] in the fifth intercostal space, midclavicular line. S1, S2 audible. Irregular ly irregular. ABDOMEN: Normal in appearance, soft, tympanic. No guarding, no rigidity. CENTRAL NERVOUS SYSTEM: On ventilator and arousable. EXTREMITIES: No cyanosis, no clubbing. The patient has 1-2+ edema in both lower extremities. CURRENT MEDICATIONS: Include as follows: Aspirin 81 mg daily, Cardizem 60 mg, GT q.i.d., Crestor 1 0 mg at bedtime, Diprivan 2.3 mL per hour, MiraLax, Pepcid, Plavix 75 mg daily, KCl 40 mEq p.o. daily , Pulmicort 0.5 mg inhaler q. 12 hours, and Spiriva 18 mcg q. 24 hours. LABORATORY DATA: Include as follows: As of 10/22/2016, WBC 6.1, hemoglobin 9.7, hematocrit is 29.6. Repeat, hemoglobin 8.3, hematocrit is 25.6. As of 10/23/2016, WBC 5.4, hemoglobin 6.8 and hematocri t is 20.7, platelets 110. ABG: pH 7.39 and pCO2 of 31, pO2 of 26 and bicarbonate is 20.6 and satura tion 100%. Vent settings AC 16, 500, FiO2 of 80%. Sodium is 146, potassium 2.9, chloride 112, CO2 2 0 and anion gap of about 14, BUN 47, creatinine 2.3, glucose about 76, total protein 3.6, albumin is 1.8. Calcium is 7, phosphorus 3.9 and magnesium 1.5. As of 10/19/2016, MRSA screening was negative an d stool culture negative. Chest x-ray as of 10/23/2016, lines and tubes in stable position, moderate venous congestion, prominent bibasilar airspace opacity with bilateral pleural effusions, bi-apical p leural thickening with upper lobe granulomatous changes. SUMMARY: The patient is an 86-year-old elderly female with a history of chronic obstructive pulmonar y disease, status post intubation and extubation and intubated and questionable vaginal bleed. Decre ase in H and H in the last 48 hours, status post transfusion of 1 unit packed RBC today on ventilator , increased BUN and creatinine and low potassium. 1. Renal failure, acute on chronic kidney disease. 2. Hyperkalemia. 3. Anemia. 4. Respiratory failure on ventilator secondary to pneumonia and CHF. I agree with the potassium supplement and the patient received 1 unit of packed RBC transfusion. Fol low BMP in a.m. and CBC in a.m. The patient is a DNR and DNI and the patient's family is thinking ab out terminal extubation tomorrow. Overall, prognosis is very poor. Thank you for allowing me to participate in your patient's care. Ann Garzon MD cc: [id number] TT: 10/24/2016 01:23:37 Confirmation # [id number] Dictation # [id number]
[2016-10-24 05:40] LABS: ABG ALLEN TEST POS; ABG MECHANICAL RATE 14; ARTERIAL BLOOD HGB O2 SAT 96.2 % (95.0-98.0); ATERIAL BLOOD GAS PEEP 5; CARBOXYHEMOGLOBIN 2.2 % (0.5-1.5); DRAW SITE RRAD; HHB 0.7 % (0.0-5.0); METHEMOGLOBIN 0.9 % (0.0-3.0)
--- NOTE | 2016-10-24 06:42 | CP.CCUPN ---
<Katarzyna Hearn - Last Filed: 10/24/16 17:57> CCU Subjective - Physician Review Subjective (Free Text): 10/07/16 12:24 Patient was seen and examined in no acute distress. No acute events overnight. Packing remains in place. Patient appears more lethargic today at times as compared to her normal baseline. Patient was extubated 10/02/16 with O2 saturation in high 90s on venti mask. The patient has passed a swallow evaluation and eating though minimally. Per nursing, patient has not had a BM in 5-6 days. The patient did not comply with ROS due to somnolence. 10/08/16 12:48 Pt seen and examined though increasingly lethargic on evaluation and as per nursing. Patient desaturated into the 80's in mild distress prompting the need for intubation. A ROS could not be obtained due to patient's lethargy 10/09/16 14:24 Pt seen and examined in no acute distress. Patient intubated 10/08/16 with TLC placed with no events per nursing. A ROS could not be obtained due to patient's lethargy. 10/10/16 21:06 Pt seen and examined in no acute distress. No events overnight per nursing. An ROS could not be obtained due to patient being intubated and sedated. 10/11/16 07:16 Pt seen and examined in no acute distress. Patient hemodynamically stable at this time. Patient being weaned off FiO2. Feeds held in light of abdominal xray findings suggestive of large ileus. An ROS could not be obtained due to patient being intubated and sedated. Sister present bedside. 10/14/16 15:43 Pt seen and examined in no acute distress. Patient alert and able to point and gesture towards fan in need of cool air. Patient able to gesture and wave at family present bedside as well. Patient tolerating CPAP. Patient to have thoracentesis today after consent is obtained. An ROS could not be obtained at this time due to patient being intubated. 10/15/16 15:22 Pt seen and examined in no acute distress. Patient tolerating CPAP trial well. Patient had thoracentesis performed. Tolerated procedure well. Still intubated - No ROS at this time. 10/16/16 13:43 Pt seen and examined in no acute distress. Patient tolerating CPAP. Patient still intubated though quite responsive with palpation. No ROS at this time as patient is intubated. 10/17/16 17:42 Pt seen and examined in no acute distress. Patient tolerating CPAP with pressure support. Patient was extubated this afternoon. Patient instructed not to talk or speak. Patient denied chest pain, palpitations, headaches, subjective fevers or chills at this time. 10/18/16 18:46 Pt seen and examined in no acute distress. Patient passed swallow eval per nursing. Patient is easily irritated at times and stated that she wanted her mitten restraints pulled off. A few weeks prior, patient nearly pulled out all her lines and thus the mittens will stay in place per nursing. Patient tolerating a diet. Patient's mentation waxes and wanes. At times, she is more alert and other times, she repeats the same phrases over and over. At this time , she denies subjective fevers or chills, chest pain, nausea, vomiting, or diarrhea, paresthesias, or headaches. 10/23/16 09:24 Pt seen and examined in no acute distress. patient currently intubated and sedated. Durign rounds, it was briyeimy u 10/23/16 09:41 Patient seen at bedside intubated on PRVC FiO2 80%, RR 16, PEEP 5, TV 500. FiO2 changed from 80% to 50% prior to morning rounds by respiratory therapist. Patient intubated and sedated at this time. Patient responsive to stimulus. Not able to coherently respond to ROS at this time though. 10/24/16 16:03 Patient seen at bedside intubated on PRVC FiO2 80%, RR 14, PEEP 5, TV 500. Patient sedated per family requests at this time. Patient not able to comply to ROS due to sedation. CCU Objective - Vital Signs / Intake & Output Vital Signs (Last 4 hours): Vital Signs Temp Pulse Resp BP Pulse Ox 10/24/16 06:33 77 21 129/70 97 10/24/16 06:30 77 15 98 10/24/16 06:00 84 17 97 10/24/16 05:33 77 19 130/66 98 10/24/16 05:30 75 14 98 10/24/16 05:10 70 15 97 10/24/16 05:00 78 23 97 10/24/16 04:33 77 16 134/67 97 10/24/16 04:30 83 23 96 10/24/16 04:19 79 17 98 10/24/16 04:00 98 F 80 22 97 10/24/16 03:33 82 20 137/70 97 10/24/16 03:30 81 18 97 10/24/16 03:00 80 24 97 Intake and Output (Last 8hrs): Intake & Output 10/23/16 10/23/16 10/24/16 14:59 22:59 06:59 Intake Total 654.6 687.2 268.8 Output Total 157 50 Balance 497.6 637.2 268.8 Intake: Intake, IV Amount 654.6 67.2 58.8 Left Proximal Port 600 External Jugular Left Distal Port External 54.6 67.2 58.8 Jugular Tube Feeding 150 210 Blood Product 400 Apheresis Rbc Cp2d As3 Lr 280 2nd Unit [id number] Other 70 Apheresis Rbc Cp2d As3 Lr 20 2nd Unit [id number] Output: Urine 157 50 Urethral (Perez) 157 50 - Physical Exam Head: Positive for: Atraumatic, Normocephalic Pupils: Positive for: PERRL Extroacular Muscles: Positive for: EOMI Conjunctiva: Positive for: Injected Mouth: Positive for: Dry Nose (Internal): Positive for: Other (Nasal packing in place) Neck: Positive for: Normal Range of Motion Respiratory/Chest: Positive for: Clear to Auscultation, Good Air Exchange, Rales. Negative for: Respiratory Distress, Accessory Muscle Use, Wheezes Cardiovascular: Positive for: Normal S1, S2, Irregular Rhythm. Negative for: Regular Rate and Rhythm, Murmurs Abdomen: Positive for: Distention, Normal Bowel Sounds. Negative for: Peritoneal Signs, Rebound Genitourinary/Pelvic Exam: Positive for: Other (perez in place) Upper Extremity: Positive for: Normal Inspection. Negative for: Cyanosis, Edema Lower Extremity: Positive for: Normal Inspection. Negative for: Edema, CALF TENDERNESS Neurological: Positive for: Other (sedated but responsive to stimuli) Skin: Positive for: Warm, Dry Psychiatric: Positive for: Alert - Medications Active Medications: Active Medications Generic Name Dose Route Start Last Admin Trade Name Freq PRN Reason Stop Dose Admin Aspirin 81 mg 09/24/16 18:30 10/23/16 11:08 Aspirin Chewable PO 81 mg DAILY [facility] Administration Budesonide 0.5 mg 10/02/16 20:00 10/23/16 19:46 Pulmicort Respules INH 0.5 mg RQ12 [facility] Administration Clopidogrel Bisulfate 75 mg 09/26/16 10:00 10/23/16 11:08 Plavix PO 75 mg DAILY [facility] Administration Diltiazem HCl 60 mg 10/10/16 14:00 10/23/16 21:28 Cardizem GT 60 mg QID [facility] Administration Famotidine 20 mg 10/23/16 10:00 10/23/16 11:08 Pepcid PO 20 mg DAILY [facility] Administration Propofol 100 mls @ 2.327 mls/hr 10/22/16 11:43 10/23/16 21:46 Diprivan IV 8.4 mls/hr .Q24H PRN Administration TITRATE PER MD ORDER Protocol 5 MCG/KG/MIN Polyethylene Glycol 17 gm 10/06/16 10:00 10/15/16 11:19 Miralax PO Not Given DAILY [facility] Potassium Chloride 40 meq 10/19/16 10:00 10/23/16 11:15 Potassium Chloride Oral Soln PO 40 meq DAILY [facility] Administration Rosuvastatin Calcium 10 mg 09/23/16 22:00 10/23/16 21:28 Crestor PO 10 mg HS [facility] Administration Tiotropium [place] 18 mcg 10/19/16 08:00 10/23/16 07:45 Spiriva INH Not Given RQ24 [facility] - Patient Studies Lab Studies: Lab Studies 10/24/16 10/23/16 Range/Units 05:22 12:46 Puncture Site Rrad pCO2 31 L (35-45) mm/Hg pO2 75 L (80-100) mm/Hg HCO3 20.2 L (21-28) mmol/L ABG pH 7.38 (7.35-7.45) ABG Total CO2 19.3 L (22-28) mmol/L ABG O2 Saturation 99.3 H (95-98) % ABG Base Excess -6.1 L (-2.0-3.0) mmol/L ABG Hemoglobin 7.6 L (11.7-17.4) g/dL ABG Carboxyhemoglobin 2.2 H (0.5-1.5) % POC ABG HHb (Measured) 0.7 (0.0-5.0) % ABG Methemoglobin 0.9 (0.0-3.0) % Fish Test Pos A-a O2 Difference 100.0 mm/Hg Respiratory Index 1.3 Hgb O2 Saturation 96.2 (95.0-98.0) % Mechanical Rate 14 FiO2 30.0 % Tidal Volume 500 PEEP 5 Blood Type O POSITIVE Antibody Screen Negative Laboratory Results - last 24 hr 10/23/16 10/24/16 12:46 05:22 Puncture Site Rrad pCO2 31 L pO2 75 L HCO3 20.2 L ABG pH 7.38 ABG Total CO2 19.3 L ABG O2 Saturation 99.3 H ABG Base Excess -6.1 L ABG Hemoglobin 7.6 L ABG Carboxyhemoglobin 2.2 H POC ABG HHb (Measured) 0.7 ABG Methemoglobin 0.9 Fish Test Pos A-a O2 Difference 100.0 Respiratory Index 1.3 Hgb O2 Saturation 96.2 Mechanical Rate 14 FiO2 30.0 Tidal Volume 500 PEEP 5 Blood Type O POSITIVE Antibody Screen Negative Fingerstick Blood Sugar Results: 127 Review of Systems - Review of Systems Systems not reviewed;Unavailable: Other Review of Systems: see subjection - EENT Eyes: As Per [facility] Critical Care Progress Note - Nutrition Nutrition: Nutrition Category Date Time Status Liquid Diet [DIET] Diets 10/18/16 Breakfast Active Assessment/Plan - Assessment and Plan (Free Text) Assessment: 86 F with a past medical history of COPD secondary to chronic tobacco use admitted on 09/23 for respiratory distress. Patient found on the floor with shallow breathing warranting re-consult of critical care team for intubation and continued care 10/22. This is the patient's third time being intubated during the hospital stay. Palliative care on board with family decision for DNR/ DNI measures. Plan: Neuro: Neurochecks q6 Sedation: Propofol. Will titrate down as needed. Cardio: Diltiazem 60 mg GT QID [facility] Rosuvastatin 10 mg PO HS [facility] ASA 81 mg Plavix Pulm: COPD Maintain O2 sat >92% Budesonide 0.5 mg INH Vent Settings: 10/24 PRVC FiO2 30%, RR 14, PEEP 5, TV 500 10/23 PRVC FiO2 50%, RR 16, PEEP 5, TV 500 10/22 PRVC FiO2 80%, RR 16, PEEP 5, TV 500 AB/30 pH 7.38, CO2 31, O2 75, HCO3 20.2 10/23 pH 7.39, CO2 31, O2 226, HCO3 20.6 10/22 pH 7.36, CO2 31, O2 112, HCO3 19.3 Imagin/30 CXR: no significant changes noted. 10/23 CXR: prominent bibasilar airspace opacities with bilateral pleural effusions. biapical pleural thickening with upper lobe granulomatous changes. Tiotropium [place] 18 mcg INH RQ24 [facility] Endo: Diabetes Maintain euglycemia Novolin R SS Accucheck q6 GI: Diet: Isosource 1.5 Goal 30 cc/hr Supplements: Ensure Enlive Chocolate 3 per day Albumin 1.8 Monitor CMP 10/15: 9 cm cecal dilation without evidence of obstruction 10/11 XRAY Abdominal Series: mildly dilated loops of bowel in RUQ w/ non- specific gas Rectal Tube inserted 10/16 Miralax 17 gm PO daily : Vaginal Bleeding - No further events noted yet. 10/22 CLINICAL EXERCISE SPECIALIST consult - No active bleeding on pad. Would recommend evaluation when patient is conscious and stable. Monitor I/Os Maintain Perez care Nephro: BUN/Cr: 45/2.7 Monitor I/Os Hypokalemia - repleted Heme: H&H: 7.7 stable COA/28 INR: 1.2, PT 13.8, PTT 34 Daily CBC ID: WBC 5.4 Monitor CBC MSK: PT/OT eval and treat Social Work: Brother Anthony Ellis and niece Felicia met with Mar [facility] and discussed end of life care discussion. Patient's family chose DNR/ DNI. Family initially asked for extubation on morning 10/24; however this discussion was based on initial evaluation. Patient currently tolerating weaning protocol on current ventilator settings however not stable/strong enough for extubation. Will relay to family. Prophylaxis: DVT: SCDs, Heparin contraindicated due to vaginal bleeding GI: Famotidine 20 mg PO daily <Cherie Shelley - Last Filed: 10/24/16 19:54> CCU Objective - Vital Signs / Intake & Output Vital Signs (Last 4 hours): Vital Signs Temp Pulse Resp BP Pulse Ox 10/24/16 19:00 69 19 120/81 99 10/24/16 18:00 66 18 120/68 99 10/24/16 17:00 68 21 134/81 98 10/24/16 16:00 96.8 F L 61 20 131/82 99 Intake and Output (Last 8hrs): Intake & Output 10/24/16 10/24/16 10/24/16 06:59 14:59 22:59 Intake Total 307.2 1282.2 222.0 Output Total 250 195 120 Balance 57.2 1087.2 102.0 Intake: Intake, IV Amount 67.2 542.2 42.0 Left Proximal Port 475 External Jugular Left Distal Port External 67.2 67.2 42.0 Jugular Tube Feeding 240 240 60 Blood Product 325 Red Blood Cells Cpd As5 325 Lr Unit [id number] Other 175 120 Red Blood Cells Cpd As5 100 Lr Unit [id number] Output: Urine 250 195 120 Urethral (Perez) 250 195 120 Other: # Bowel Movements 1 - Medications Active Medications: Active Medications Generic Name Dose Route Start Last Admin Trade Name Freq PRN Reason Stop Dose Admin Albuterol/Ipratropium 3 ml 10/24/16 14:00 10/24/16 13:20 Duoneb 3 Mg/0.5 Mg (3 Ml) Ud INH 3 ml RQ6 [facility] Administration Budesonide 0.5 mg 10/02/16 20:00 10/24/16 07:49 Pulmicort Respules INH 0.5 mg RQ12 [facility] Administration Diltiazem HCl 60 mg 10/10/16 14:00 10/24/16 17:50 Cardizem GT 60 mg QID [facility] Administration Famotidine 20 mg 10/23/16 10:00 10/24/16 09:04 Pepcid PO 20 mg DAILY [facility] Administration Propofol 100 mls @ 2.327 mls/hr 10/22/16 11:43 10/24/16 19:36 Diprivan IV 8.4 mls/hr .Q24H PRN Administration TITRATE PER MD ORDER Protocol 5 MCG/KG/MIN Rosuvastatin Calcium 10 mg 09/23/16 22:00 10/23/16 21:28 Crestor PO 10 mg HS [facility] Administration - Patient Studies Lab Studies: Microbiology Studies 10/22/16 15:03 MRSA Culture (Admit) - Final Naris MRSA NOT DETECTED Lab Studies 10/24/16 10/24/16 10/24/16 Range/Units 16:49 06:37 06:29 WBC 5.4 (4.8-10.8) K/uL RBC 2.53 L (3.80-5.20) Mil/uL Hgb 7.7 L (11.0-16.0) g/dL Hct 22.9 L (34.0-47.0) % MCV 90.3 (81.0-99.0) fL MCH 30.3 (27.0-31.0) pg MCHC 33.5 (33.0-37.0) g/dL RDW 14.6 H (11.5-14.5) % Plt Count 124 L (130-400) K/uL MPV 10.4 (7.2-11.7) fL Neut % (Auto) 77.3 H (50.0-75.0) % Lymph % (Auto) 14.0 L (20.0-40.0) % Page % (Auto) 6.6 (0.0-10.0) % Eos % (Auto) 1.9 (0.0-4.0) % Baso % (Auto) 0.2 (0.0-2.0) % Neut # 4.2 (1.8-7.0) K/uL Lymph # 0.8 L (1.0-4.3) K/uL Page # 0.4 (0.0-0.8) K/uL Eos # 0.1 (0.0-0.7) K/uL Baso # 0.0 (0.0-0.2) K/uL Puncture Site pCO2 (35-45) mm/Hg pO2 (80-100) mm/Hg HCO3 (21-28) mmol/L ABG pH (7.35-7.45) ABG Total CO2 (22-28) mmol/L ABG O2 Saturation (95-98) % ABG Base Excess (-2.0-3.0) mmol/L ABG Hemoglobin (11.7-17.4) g/dL ABG Carboxyhemoglobin (0.5-1.5) % POC ABG HHb (Measured) (0.0-5.0) % ABG Methemoglobin (0.0-3.0) % Fish Test A-a O2 Difference mm/Hg Respiratory Index Hgb O2 Saturation (95.0-98.0) % Mechanical Rate FiO2 % Tidal Volume PEEP Sodium 148 144 (132-148) mmol/L Potassium 5.6 H 2.9 L (3.6-5.2) mmol/L Chloride 117 H 114 H (98-107) mmol/L Carbon Dioxide 19 L 19 L (22-30) mmol/L Anion Gap 18 14 (10-20) BUN 46 H 45 H (7-17) mg/dL Creatinine 2.6 H 2.7 H (0.7-1.2) MG/DL Est GFR ( Amer) 21 20 Est GFR (Non-Af Amer) 17 17 Random Glucose 149 H 120 H (65-105) mg/dL Calcium 7.7 L 7.6 L (8.6-10.4) mg/dl Phosphorus 3.4 (2.5-4.5) mg/dL Magnesium 2.1 (1.6-2.3) mg/dL Total Bilirubin 0.3 (0.2-1.3) mg/dL AST 24 (14-36) U/L ALT 34 (9-52) U/L Alkaline Phosphatase 48 (38-126) U/L Total Protein 3.9 L (6.3-8.3) g/dL Albumin 1.9 L (3.5-5.0) g/dL Globulin 2.0 L (2.2-3.9) gm/dL Albumin/Globulin Ratio 1.0 (1.0-2.1) Blood Type Antibody Screen 10/24/16 10/23/16 Range/Units 05:22 12:46 WBC (4.8-10.8) K/uL RBC (3.80-5.20) Mil/uL Hgb (11.0-16.0) g/dL Hct (34.0-47.0) % MCV (81.0-99.0) fL MCH (27.0-31.0) pg MCHC (33.0-37.0) g/dL RDW (11.5-14.5) % Plt Count (130-400) K/uL MPV (7.2-11.7) fL Neut % (Auto) (50.0-75.0) % Lymph % (Auto) (20.0-40.0) % Page % (Auto) (0.0-10.0) % Eos % (Auto) (0.0-4.0) % Baso % (Auto) (0.0-2.0) % Neut # (1.8-7.0) K/uL Lymph # (1.0-4.3) K/uL Page # (0.0-0.8) K/uL Eos # (0.0-0.7) K/uL Baso # (0.0-0.2) K/uL Puncture Site Rrad pCO2 31 L (35-45) mm/Hg pO2 75 L (80-100) mm/Hg HCO3 20.2 L (21-28) mmol/L ABG pH 7.38 (7.35-7.45) ABG Total CO2 19.3 L (22-28) mmol/L ABG O2 Saturation 99.3 H (95-98) % ABG Base Excess -6.1 L (-2.0-3.0) mmol/L ABG Hemoglobin 7.6 L (11.7-17.4) g/dL ABG Carboxyhemoglobin 2.2 H (0.5-1.5) % POC ABG HHb (Measured) 0.7 (0.0-5.0) % ABG Methemoglobin 0.9 (0.0-3.0) % Fish Test Pos A-a O2 Difference 100.0 mm/Hg Respiratory Index 1.3 Hgb O2 Saturation 96.2 (95.0-98.0) % Mechanical Rate 14 FiO2 30.0 % Tidal Volume 500 PEEP 5 Sodium (132-148) mmol/L Potassium (3.6-5.2) mmol/L Chloride (98-107) mmol/L Carbon Dioxide (22-30) mmol/L Anion Gap (10-20) BUN (7-17) mg/dL Creatinine (0.7-1.2) MG/DL Est GFR ( Amer) Est GFR (Non-Af Amer) Random Glucose (65-105) mg/dL Calcium (8.6-10.4) mg/dl Phosphorus (2.5-4.5) mg/dL Magnesium (1.6-2.3) mg/dL Total Bilirubin (0.2-1.3) mg/dL AST (14-36) U/L ALT (9-52) U/L Alkaline Phosphatase (38-126) U/L Total Protein (6.3-8.3) g/dL Albumin (3.5-5.0) g/dL Globulin (2.2-3.9) gm/dL Albumin/Globulin Ratio (1.0-2.1) Blood Type O POSITIVE Antibody Screen Negative Laboratory Results - last 24 hr 10/23/16 10/24/16 10/24/16 12:46 05:22 06:29 WBC RBC Hgb Hct MCV MCH MCHC RDW Plt Count MPV Neut % (Auto) Lymph % (Auto) Page % (Auto) Eos % (Auto) Baso % (Auto) Neut # Lymph # Page # Eos # Baso # Puncture Site Rrad pCO2 31 L pO2 75 L HCO3 20.2 L ABG pH 7.38 ABG Total CO2 19.3 L ABG O2 Saturation 99.3 H ABG Base Excess -6.1 L ABG Hemoglobin 7.6 L ABG Carboxyhemoglobin 2.2 H POC ABG HHb (Measured) 0.7 ABG Methemoglobin 0.9 Fish Test Pos A-a O2 Difference 100.0 Respiratory Index 1.3 Hgb O2 Saturation 96.2 Mechanical Rate 14 FiO2 30.0 Tidal Volume 500 PEEP 5 Sodium 144 Potassium 2.9 L Chloride 114 H Carbon Dioxide 19 L Anion Gap 14 BUN 45 H Creatinine 2.7 H Est GFR ( Amer) 20 Est GFR (Non-Af Amer) 17 Random Glucose 120 H Calcium 7.6 L Phosphorus 3.4 Magnesium 2.1 Total Bilirubin 0.3 AST 24 ALT 34 Alkaline Phosphatase 48 Total Protein 3.9 L Albumin 1.9 L Globulin 2.0 L Albumin/Globulin Ratio 1.0 Blood Type O POSITIVE Antibody Screen Negative 10/24/16 10/24/16 06:37 16:49 WBC 5.4 RBC 2.53 L Hgb 7.7 L Hct 22.9 L MCV 90.3 MCH 30.3 MCHC 33.5 RDW 14.6 H Plt Count 124 L MPV 10.4 Neut % (Auto) 77.3 H Lymph % (Auto) 14.0 L Page % (Auto) 6.6 Eos % (Auto) 1.9 Baso % (Auto) 0.2 Neut # 4.2 Lymph # 0.8 L Page # 0.4 Eos # 0.1 Baso # 0.0 Puncture Site pCO2 pO2 HCO3 ABG pH ABG Total CO2 ABG O2 Saturation ABG Base Excess ABG Hemoglobin ABG Carboxyhemoglobin POC ABG HHb (Measured) ABG Methemoglobin Fish Test A-a O2 Difference Respiratory Index Hgb O2 Saturation Mechanical Rate FiO2 Tidal Volume PEEP Sodium 148 Potassium 5.6 H Chloride 117 H Carbon Dioxide 19 L Anion Gap 18 BUN 46 H Creatinine 2.6 H Est GFR ( Amer) 21 Est GFR (Non-Af Amer) 17 Random Glucose 149 H Calcium 7.7 L Phosphorus Magnesium Total Bilirubin AST ALT Alkaline Phosphatase Total Protein Albumin Globulin Albumin/Globulin Ratio Blood Type Antibody Screen Critical Care Progress Note - Nutrition Nutrition: Nutrition Category Date Time Status Liquid Diet [DIET] Diets 10/18/16 Breakfast Active Attending/Attestation - Attestation I have personally seen and examined this patient.: Yes I have fully participated in the care of the patient.: Yes I have reviewed all pertinent clinical information: Yes Notes (Text): 10/24/16 19:49 Patient seen and examined in the morning. Tolerating bipap well, but needs one more unit of blood to be transfused and diuresis prior to extubation. K 2.9, replace po. Might be able to get extubated in am. Rest of management unchanged.
[2016-10-24 06:50] LABS: BASO % 0.2 % (0.0-2.0); EOS # 0.1 K/uL (0.0-0.7); EOS % 1.9 % (0.0-4.0); HEMATOCRIT 22.9 % (34.0-47.0); LYMPH # 0.8 K/uL (1.0-4.3); MEAN CELL VOLUME 90.3 fL (81.0-99.0); MEAN CORPUSCULAR HEMOGLOBIN 30.3 pg (27.0-31.0); MEAN CORPUSCULAR HGB CONC 33.5 g/dL (33.0-37.0); MEAN PLATELET VOLUME 10.4 fL (7.2-11.7); MONO # 0.4 K/uL (0.0-0.8); MONO % 6.6 % (0.0-10.0); NRBC % 0.3 % (0.0-2.0); RED CELL DISTRIBUTION WIDTH 14.6 % (11.5-14.5); WHITE BLOOD COUNT 5.4 K/uL (4.8-10.8)
[2016-10-24 06:54] LABS: POTASSIUM 2.9 mmol/L (3.6-5.2)
[2016-10-24 06:56] LABS: BILIRUBIN,TOTAL 0.3 mg/dL (0.2-1.3); TOTAL PROTEIN 3.9 g/dL (6.3-8.3)
[2016-10-24 06:57] LABS: CALCIUM 7.6 mg/dl (8.6-10.4); MAGNESIUM 2.1 mg/dL (1.6-2.3); PHOSPHOROUS 3.4 mg/dL (2.5-4.5)
[2016-10-24] MEDS: Budesonide 0.5 mg/2 ml Inhal Susp UD INH SCH ×2 (07:49→20:03)
[2016-10-24] MEDS: Tiotropium 18 mcg Cap For Inhalation INH SCH (07:49)
--- NOTE | 2016-10-24 08:38 | CP.PCM.PN ---
Subjective - Date & Time of Evaluation Date of Evaluation: 10/24/16 Time of Evaluation: 08:35 - Subjective Subjective: Patient seen and examined in the intensive care unit. Remains intubated on ventilatory support, FiO2 30% Getting PRBCs transfusion Open eyes to stimuli afebrile Objective - Vital Signs/Intake and Output Vital Signs (last 24 hours): Temp Pulse Resp BP Pulse Ox 97.5 F L 76 16 122/69 99 10/24/16 08:00 10/24/16 08:00 10/24/16 08:00 10/24/16 08:00 10/24/16 08:00 Intake and Output: 10/24/16 10/24/16 06:59 18:59 Intake Total 720.8 46.8 Output Total 250 Balance 470.8 46.8 - Medications Medications: Current Medications Aspirin (Aspirin Chewable) 81 mg PO DAILY [facility] Last Admin: 10/23/16 11:08 Dose: 81 mg Budesonide (Pulmicort Respules) 0.5 mg INH RQ12 [facility] Last Admin: 10/24/16 07:49 Dose: 0.5 mg Clopidogrel Bisulfate (Plavix) 75 mg PO DAILY [facility] Last Admin: 10/23/16 11:08 Dose: 75 mg Diltiazem HCl (Cardizem) 60 mg GT QID [facility] Last Admin: 10/23/16 21:28 Dose: 60 mg Famotidine (Pepcid) 20 mg PO DAILY [facility] Last Admin: 10/23/16 11:08 Dose: 20 mg Propofol (Diprivan) 100 mls @ 2.327 mls/hr IV .Q24H PRN; Protocol; 5 MCG/KG/MIN PRN Reason: TITRATE PER MD ORDER Last Admin: 10/23/16 21:46 Dose: 8.4 mls/hr Polyethylene Glycol (Miralax) 17 gm PO DAILY [facility] Last Admin: 10/15/16 11:19 Dose: Not Given Potassium Chloride (Potassium Chloride Oral Soln) 40 meq PO DAILY [facility] Last Admin: 10/23/16 11:15 Dose: 40 meq Potassium Chloride (Potassium Chloride Oral Soln) 60 meq PO Q4H [facility] Stop: 10/24/16 12:16 Rosuvastatin Calcium (Crestor) 10 mg PO HS [facility] Last Admin: 10/23/16 21:28 Dose: 10 mg Tiotropium [place] (Spiriva) 18 mcg INH RQ24 [facility] Last Admin: 10/24/16 07:49 Dose: Not Given - Labs Labs: 10/24/16 06:37 10/24/16 06:29 PT 13.8 SECONDS (9.7-12.2) H 10/22/16 05:45 INR 1.2 10/22/16 05:45 APTT 34 SECONDS (21-34) 10/22/16 05:45 - Head Exam Head Exam: ATRAUMATIC, NORMOCEPHALIC - ENT Exam ENT Exam: Mucous Membranes Moist - Neck Exam Neck Exam: Normal Inspection - Respiratory Exam Respiratory Exam: Decreased Breath Sounds - Cardiovascular Exam Cardiovascular Exam: REGULAR RHYTHM - Extremities Exam Extremities Exam: Pedal Edema - Neurological Exam Neurological Exam: Awake Assessment and Plan (1) Acute respiratory failure with hypoxia and hypercarbia Assessment & Plan: continue ventilatory support Patient DNR/DNI Transfusion of blood RBCs Continue nebulizer treatment and steroids Terminal extubation versus trach hold Plavix and aspirin Status: Resolved (2) Acute [place] Status: Acute (3) Leucocytosis Status: Acute (4) COPD (chronic obstructive pulmonary disease) Status: Chronic
[2016-10-24] MEDS: Potassium Chloride 20 mEq/15 ml LIQ UD PO SCH ×3 (08:58→11:53)
--- NOTE | 2016-10-24 09:16 | CP.PCM.PN ---
Subjective - Date & Time of Evaluation Date of Evaluation: 10/24/16 Time of Evaluation: 08:40 - Subjective Subjective: F/U abdom distention, FTT, anemia Resp failure No report of RB, melena, fever, chills, Tremor, hematuria, hemoptysis, vomiting Objective - Vital Signs/Intake and Output Vital Signs (last 24 hours): Temp Pulse Resp BP Pulse Ox 97.8 F 74 18 129/64 99 10/24/16 08:46 10/24/16 08:46 10/24/16 08:46 10/24/16 08:55 10/24/16 08:00 Intake and Output: 10/24/16 10/24/16 06:59 18:59 Intake Total 720.8 46.8 Output Total 250 Balance 470.8 46.8 - Medications Medications: Current Medications Budesonide (Pulmicort Respules) 0.5 mg INH RQ12 [facility] Last Admin: 10/24/16 07:49 Dose: 0.5 mg Diltiazem HCl (Cardizem) 60 mg GT QID [facility] Last Admin: 10/24/16 09:05 Dose: 60 mg Famotidine (Pepcid) 20 mg PO DAILY [facility] Last Admin: 10/24/16 09:04 Dose: 20 mg Propofol (Diprivan) 100 mls @ 2.327 mls/hr IV .Q24H PRN; Protocol; 5 MCG/KG/MIN PRN Reason: TITRATE PER MD ORDER Last Admin: 10/23/16 21:46 Dose: 8.4 mls/hr Polyethylene Glycol (Miralax) 17 gm PO DAILY [facility] Last Admin: 10/15/16 11:19 Dose: Not Given Potassium Chloride (Potassium Chloride Oral Soln) 40 meq PO DAILY [facility] Last Admin: 10/24/16 09:07 Dose: 40 meq Potassium Chloride (Potassium Chloride Oral Soln) 60 meq PO Q4H [facility] Stop: 10/24/16 12:16 Last Admin: 10/24/16 08:58 Dose: 60 meq Rosuvastatin Calcium (Crestor) 10 mg PO HS [facility] Last Admin: 10/23/16 21:28 Dose: 10 mg Tiotropium [place] (Spiriva) 18 mcg INH RQ24 [facility] Last Admin: 10/24/16 07:49 Dose: Not Given - Labs Labs: 10/24/16 06:37 10/24/16 06:29 PT 13.8 SECONDS (9.7-12.2) H 10/22/16 05:45 INR 1.2 10/22/16 05:45 APTT 34 SECONDS (21-34) 10/22/16 05:45 - Constitutional Appears: Chronically Ill - Respiratory Exam Respiratory Exam: Rales - Cardiovascular Exam Cardiovascular Exam: Irregular Rhythm - GI/Abdominal Exam GI & Abdominal Exam: Distended, Soft, Normal Bowel Sounds. absent: Mass - Neurological Exam Neurological Exam: Awake Assessment and Plan (1) Respiratory failure Assessment & Plan: Again with resp problems. Also has pl effusions Status: Chronic (2) Abdominal distension Assessment & Plan: last KUB was better. Abdomen is softer, but still protuberant. CT 0f 10/17/16 showed significant colon distention. Status: Acute (3) Acute OR Status: Acute (4) Atrial fibrillation Status: Acute (5) Dysphagia Assessment & Plan: Not a good PEG candidate. Status: Acute (6) Hypernatremia Status: Acute (7) Leucocytosis Status: Acute (8) Anemia Assessment & Plan: No report of GI bleeding. Status: Acute (9) Acute renal insufficiency Status: Acute
--- NOTE | 2016-10-24 09:20 | RAD ---
HISTORY: intubated COMPARISON: 10/23/2016 FINDINGS: LUNGS: Lines and tubes stable position. Persistent bibasilar airspace opacities and or associated effusions. Venous congestion. PLEURA: As above. CARDIOVASCULAR: Calcification at the aortic knob. OSSEOUS STRUCTURES: No significant abnormalities. VISUALIZED UPPER ABDOMEN: Normal. OTHER FINDINGS: None. IMPRESSION: No significant interval change.
--- NOTE | 2016-10-24 13:17 | CP.PCM.PN ---
Subjective - Date & Time of Evaluation Date of Evaluation: 10/24/16 Time of Evaluation: 13:16 - Subjective Subjective: intubated on vent. Objective - Vital Signs/Intake and Output Vital Signs (last 24 hours): Temp Pulse Resp BP Pulse Ox 97.2 F L 69 19 130/65 100 10/24/16 12:00 10/24/16 13:00 10/24/16 13:00 10/24/16 13:00 10/24/16 13:00 Intake and Output: 10/24/16 10/24/16 06:59 18:59 Intake Total 720.8 988.8 Output Total 250 Balance 470.8 988.8 - Medications Medications: Current Medications Albuterol/Ipratropium (Duoneb 3 Mg/0.5 Mg (3 Ml) Ud) 3 ml INH RQ6 [facility] Budesonide (Pulmicort Respules) 0.5 mg INH RQ12 [facility] Last Admin: 10/24/16 07:49 Dose: 0.5 mg Diltiazem HCl (Cardizem) 60 mg GT QID [facility] Last Admin: 10/24/16 09:05 Dose: 60 mg Famotidine (Pepcid) 20 mg PO DAILY [facility] Last Admin: 10/24/16 09:04 Dose: 20 mg Propofol (Diprivan) 100 mls @ 2.327 mls/hr IV .Q24H PRN; Protocol; 5 MCG/KG/MIN PRN Reason: TITRATE PER MD ORDER Last Admin: 10/23/16 21:46 Dose: 8.4 mls/hr Potassium Chloride (Potassium Chloride Oral Soln) 40 meq PO DAILY [facility] Last Admin: 10/24/16 09:07 Dose: 40 meq Rosuvastatin Calcium (Crestor) 10 mg PO HS [facility] Last Admin: 10/23/16 21:28 Dose: 10 mg - Labs Labs: 10/24/16 06:37 10/24/16 06:29 PT 13.8 SECONDS (9.7-12.2) H 10/22/16 05:45 INR 1.2 10/22/16 05:45 APTT 34 SECONDS (21-34) 10/22/16 05:45 - Constitutional Appears: Chronically Ill - Head Exam Head Exam: NORMOCEPHALIC - Respiratory Exam Respiratory Exam: Rhonchi - Cardiovascular Exam Cardiovascular Exam: REGULAR RHYTHM - GI/Abdominal Exam GI & Abdominal Exam: Soft - Extremities Exam Extremities Exam: Pedal Edema Assessment and Plan - Assessment and Plan (Free Text) Assessment: labs noted.on vent.will diss with dr rivera re extubation.
[2016-10-24] MEDS: Albuterol-Ipratrop 3 mg / 0.5 (3 ml) UD INH SCH ×2 (13:20→20:03)
[2016-10-24 17:14] LABS: POTASSIUM 5.6 mmol/L (3.6-5.2)
[2016-10-24 17:18] LABS: CALCIUM 7.7 mg/dl (8.6-10.4)
[2016-10-24] MEDS ORDERED: Sod Polystyrene Sulf 15 gm/60 ml Oral Susp PO ONE (17:23)
--- NOTE | 2016-10-24 17:56 | CP.PCM.PN ---
Subjective - Date & Time of Evaluation Date of Evaluation: 10/24/16 Time of Evaluation: 17:56 - Subjective Subjective: pt seen and examined, follow up consult is dictated # [id number] [facility] Objective - Vital Signs/Intake and Output Vital Signs (last 24 hours): Temp Pulse Resp BP Pulse Ox 96.8 F L 68 21 134/81 98 10/24/16 16:00 10/24/16 17:00 10/24/16 17:00 10/24/16 17:00 10/24/16 17:00 Intake and Output: 10/24/16 10/24/16 06:59 18:59 Intake Total 720.8 1517.4 Output Total 250 Balance 470.8 1517.4 - Medications Medications: Current Medications Albuterol/Ipratropium (Duoneb 3 Mg/0.5 Mg (3 Ml) Ud) 3 ml INH RQ6 [facility] Last Admin: 10/24/16 13:20 Dose: 3 ml Budesonide (Pulmicort Respules) 0.5 mg INH RQ12 [facility] Last Admin: 10/24/16 07:49 Dose: 0.5 mg Diltiazem HCl (Cardizem) 60 mg GT QID [facility] Last Admin: 10/24/16 17:50 Dose: 60 mg Famotidine (Pepcid) 20 mg PO DAILY [facility] Last Admin: 10/24/16 09:04 Dose: 20 mg Propofol (Diprivan) 100 mls @ 2.327 mls/hr IV .Q24H PRN; Protocol; 5 MCG/KG/MIN PRN Reason: TITRATE PER MD ORDER Last Admin: 10/23/16 21:46 Dose: 8.4 mls/hr Rosuvastatin Calcium (Crestor) 10 mg PO HS [facility] Last Admin: 10/23/16 21:28 Dose: 10 mg - Labs Labs: 10/24/16 06:37 10/24/16 16:49 PT 13.8 SECONDS (9.7-12.2) H 10/22/16 05:45 INR 1.2 10/22/16 05:45 APTT 34 SECONDS (21-34) 10/22/16 05:45
--- NOTE | 2016-10-24 19:21 | PN ---
DATE: 10/24/2016 The patient is located in ICU, bed 10. REQUESTED BY: Dr. Gianni Pace. REASON FOR FOLLOWUP: Increased BUN and creatinine. The patient is an 86-year-old elderly female with a history of COPD, was admitted with the shortness of breath and altered mental status, status post intubation and extubation, and status post thoracentesis; also found to have AFib, and also worsening serum sodium, and increased BUN and creatinine on the medical floor. The patient was transferred back to ICU early this week and intubated. The patient remains intubated. Tried to open eyes to touch. VITAL SIGNS: As follows: Blood pressure 134/81, pulse 68, respirations 21, temperature 96.8, saturation 98%. Height 5 feet 2 inches, and weight is 171 pounds. I's and O's: The last 24 hours intake is 1649 and output is 457. GENERAL: The patient is an 86-year-old elderly female on ventilator and awake, not in distress. HEENT: Pupils normal, reactive to light and accommodation. Conjunctivae pink. Sclerae anicteric. On ventilator. NECK: No thyroid enlargement. LUNGS: Symmetric on both sides. Bilateral breath sounds present. Occasional basal crackles present. CARDIOVASCULAR: [place] in the fifth intercostal space midclavicular line. S1 and S2 audible. No murmur or gallop. ABDOMEN: Normal in appearance, soft, tympanic. No guarding, no rigidity. No hepatosplenomegaly. CENTRAL NERVOUS SYSTEM: The patient is awake on ventilator. EXTREMITIES: No cyanosis, no clubbing. Trace to 1+ edema in both lower extremities. MEDICATIONS: Include as follows: Diltiazem 60 mg by G-tube 4 times a day and Crestor 10 mg at bedtime, DuoNeb inhaler 3 mL every 6 hours, Lasix 60 mg IV x 1 yesterday and Pepcid 20 mg p.o. daily and propofol and Pulmicort . LABORATORY DATA: Include as follows as of 10/24/2016: WBC 5.4, hemoglobin 7.7 , hematocrit is 22.9, platelets 124. ABG: pH 7.38, and pCO2 of 31, and pO2 of 75, bicarb is 20.2, and saturation 99.3. Vent setting AC 14, tidal volume 500, and FIO2 of 30%, PEEP of 5. Sodium this morning is 144, potassium is 2.9, and chloride 114, and CO2 of 19, BUN 45, creatinine 2.7, and glucose is 120, calcium is 7.6, phosphorus 3.4, magnesium 2.1, and total bilirubin 0.3. AST 24 , ALT 34, alkaline phosphatase 48, total protein 3.9, albumin 1.9. Repeat Chem- 7 at 1649: Sodium is 149, potassium 5.6, chloride 117, CO2 of 19, BUN 46, creatinine 2.6, glucose 149, calcium 7.7. Her baseline creatinine on admission was 1.2. As of 10/08/2016, creatinine was 1.1. MRSA screening was negative as of 10/22/2016. In summary the patient is an 86-year-old elderly female with a history of chronic obstructive pulmonary disease, respiratory failure, atrial fibrillation , status post thoracentesis, and hemoglobin A1c as of 09/23/2016 was 5.9. On ventilator at this time. 1. Oliguric acute renal failure, most likely secondary to intravascular volume depletion. 2. Hyponatremia. 3. Hypokalemia, status post potassium supplement. Now the potassium is 5.6. Will hold potassium supplement at this time, and monitor BMP daily. Will consider gentle IV hydration D5W at 42 mL per hour. Will follow with you. Thank you for allowing me to participate in your patient' s care. Overall, prognosis is very poor. The patient is DNR/DNI. Ann Garzon MD cc: [id number] TT: 10/24/2016 19:21:11 Confirmation # [id number] Dictation # [id number] MTDD
[2016-10-25] MEDS: Albuterol-Ipratrop 3 mg / 0.5 (3 ml) UD INH SCH ×4 (01:10→19:40)
[2016-10-25 05:42] LABS: ABG ALLEN TEST POS; ABG MECHANICAL RATE 14; ARTERIAL BLOOD HGB O2 SAT 96.3 % (95.0-98.0); ATERIAL BLOOD GAS PEEP 5; DRAW SITE RR; HHB 0.7 % (0.0-5.0)
[2016-10-25 06:30] LABS: BASO % 0.2 % (0.0-2.0); EOS # 0.1 K/uL (0.0-0.7); EOS % 1.3 % (0.0-4.0); HEMATOCRIT 26.7 % (34.0-47.0); LYMPH # 0.7 K/uL (1.0-4.3); LYMPH % 13.7 % (20.0-40.0); MEAN CELL VOLUME 89.8 fL (81.0-99.0); MEAN CORPUSCULAR HEMOGLOBIN 29.8 pg (27.0-31.0); MEAN CORPUSCULAR HGB CONC 33.2 g/dL (33.0-37.0); MEAN PLATELET VOLUME 10.3 fL (7.2-11.7); MONO # 0.4 K/uL (0.0-0.8); MONO % 8.5 % (0.0-10.0); NRBC % 0.2 % (0.0-2.0); PLATELET COUNT 141 K/uL (130-400); RED CELL DISTRIBUTION WIDTH 15.4 % (11.5-14.5); WHITE BLOOD COUNT 4.9 K/uL (4.8-10.8)
[2016-10-25 06:36] LABS: POTASSIUM 4.1 mmol/L (3.6-5.2)
[2016-10-25 06:38] LABS: BILIRUBIN,TOTAL 0.3 mg/dL (0.2-1.3)
[2016-10-25 06:39] LABS: CALCIUM 7.7 mg/dl (8.6-10.4); PHOSPHOROUS 3.6 mg/dL (2.5-4.5); TOTAL PROTEIN 4.1 g/dL (6.3-8.3)
[2016-10-25 06:40] LABS: MAGNESIUM 2.1 mg/dL (1.6-2.3)
--- NOTE | 2016-10-25 08:07 | CON ---
DATE: 10/22/2016 Urology consultation is requested by Dr. Gianni Pace. Urology consultation filled by Dr. Lucrecia baldwin. DATE OF CONSULTATION: 10/22/2016. REASON FOR CONSULTATION: Hematuria. The patient is an 86-year-old female with hematuria. The patient has history of respiratory insufficiency. The patient was admitted to the hospital last month. She had been in the intensive care unit for respiratory failure. The patient was subsequently transferred to [address] [place] [address]. The patient has been noted to have bleeding. The site of the bleeding was noted to "via the perineum ", according to the nursing staff. The patient previously had a Antony catheter indwelling and did not have hematuria at that time. The patient has been having persistent blood from the area of the perineum and the vagina. The patient has had anemia. The previously had been on anticoagulation as well. Further details are as reviewed in the chart. PHYSICAL EXAMINATION: GENERAL: The patient is a well-developed elderly female. The patient is lethargic. ABDOMEN: Soft, nontender, nondistended. BACK: No CVA tenderness. GENITALIA: The external genitalia revealed blood clots in the area of the labia and the perineum. I examined the patient. I inserted a Antony catheter after identification of the urethra. There was cloudy urine, which was kathy via the Antony catheter , there was some slightly pink urine initially u robi insertion of the Antony catheter, which cleared promptly with the rest of the bladder drainage. Thereafter, I performed a pelvic examination, which revealed a moderate amount of blood on the examin ing finger. LABORATORY DATA: Reviewed as well. IMPRESSION: Vaginal bleeding. I do not detect significant hematuria at present. RECOMMENDATIONS AND PLAN: Antony catheter indwelling. Further urological evaluation may be necessary . I recommend obtaining urine culture. I recommend obtaining [facility] consultation. Further therapy to follow according to patient's clinical course. Lucrecia Goode MD cc: [phone] TT: 10/25/2016 08:07:29 Confirmation # [id number] Dictation # [id number]
[2016-10-25] MEDS: Budesonide 0.5 mg/2 ml Inhal Susp UD INH SCH ×2 (08:18→19:40)
--- NOTE | 2016-10-25 08:31 | CP.PCM.PN ---
Subjective - Date & Time of Evaluation Date of Evaluation: 10/25/16 Time of Evaluation: 08:25 - Subjective Subjective: Patient seen and examined in the intensive care unit. Remains intubated on ventilatory support Open eyes to stimuli Afebrile Objective - Vital Signs/Intake and Output Vital Signs (last 24 hours): Temp Pulse Resp BP Pulse Ox 97.5 F L 69 13 123/64 98 10/25/16 00:00 10/25/16 06:51 10/25/16 06:51 10/25/16 06:51 10/25/16 06:51 Intake and Output: 10/25/16 10/25/16 06:59 18:59 Intake Total 281.8 Output Total 1110 Balance -828.2 - Medications Medications: Current Medications Albuterol/Ipratropium (Duoneb 3 Mg/0.5 Mg (3 Ml) Ud) 3 ml INH RQ6 [facility] Last Admin: 10/25/16 08:18 Dose: 3 ml Budesonide (Pulmicort Respules) 0.5 mg INH RQ12 [facility] Last Admin: 10/25/16 08:18 Dose: 0.5 mg Diltiazem HCl (Cardizem) 60 mg GT QID [facility] Last Admin: 10/24/16 21:53 Dose: 60 mg Famotidine (Pepcid) 20 mg PO DAILY [facility] Last Admin: 10/24/16 09:04 Dose: 20 mg Propofol (Diprivan) 100 mls @ 2.327 mls/hr IV .Q24H PRN; Protocol; 5 MCG/KG/MIN PRN Reason: TITRATE PER MD ORDER Last Admin: 10/25/16 05:48 Dose: 13.962 mls/hr Rosuvastatin Calcium (Crestor) 10 mg PO HS [facility] Last Admin: 10/24/16 21:53 Dose: 10 mg - Labs Labs: 10/25/16 06:18 10/25/16 06:18 PT 13.8 SECONDS (9.7-12.2) H 10/22/16 05:45 INR 1.2 10/22/16 05:45 APTT 34 SECONDS (21-34) 10/22/16 05:45 - Head Exam Head Exam: ATRAUMATIC, NORMOCEPHALIC - ENT Exam ENT Exam: Mucous Membranes Moist - Neck Exam Neck Exam: Normal Inspection - Respiratory Exam Respiratory Exam: Decreased Breath Sounds - GI/Abdominal Exam GI & Abdominal Exam: Soft, Normal Bowel Sounds - Extremities Exam Extremities Exam: Pedal Edema Assessment and Plan (1) Acute respiratory failure with hypoxia and hypercarbia Assessment & Plan: CPAP trial Worsening metabolic acidosis noted most likely secondary to renal failure Continue nebulizer treatment Patient DNR/DNI Status: Resolved (2) Acute MS Status: Acute (3) Leucocytosis Status: Acute (4) COPD (chronic obstructive pulmonary disease) Status: Chronic
--- NOTE | 2016-10-25 08:47 | RAD ---
HISTORY: intubated COMPARISON: 10/24/2016 FINDINGS: LUNGS: Moderate venous congestion with bibasilar airspace opacities and small bilateral pleural effusions. Chronic interstitial lung markings. Upper lobe granulomatous changes. Lines and tubes in stable position. Nodular density projects over the lateral aspect of the left upper lung zone. PLEURA: As above. CARDIOVASCULAR: Normal. OSSEOUS STRUCTURES: No significant abnormalities. VISUALIZED UPPER ABDOMEN: Normal. OTHER FINDINGS: None. IMPRESSION: Moderate venous congestion with bibasilar airspace opacities and small bilateral pleural effusions. Chronic interstitial lung markings. Upper lobe granulomatous changes. Lines and tubes in stable position. Nodular density projects over the lateral aspect of the left upper lung zone.
[2016-10-25 09:55] LABS: MYELOCYTE 2 % (0-0); NEUTROPHIL 78 % (50-75); TOTAL CELLS COUNTED 100
[2016-10-25 09:56] LABS: LARGE PLATELETS PRESENT
--- NOTE | 2016-10-25 10:25 | CP.PCM.PN ---
Subjective - Date & Time of Evaluation Date of Evaluation: 10/25/16 Time of Evaluation: 10:25 - Subjective Subjective: pt seen and examined, follow up consult is dictated #[id number] Objective - Vital Signs/Intake and Output Vital Signs (last 24 hours): Temp Pulse Resp BP Pulse Ox 97.5 F L 69 13 123/64 98 10/25/16 00:00 10/25/16 06:51 10/25/16 06:51 10/25/16 06:51 10/25/16 06:51 Intake and Output: 10/25/16 10/25/16 06:59 18:59 Intake Total 281.8 Output Total 1110 Balance -828.2 - Medications Medications: Current Medications Albuterol/Ipratropium (Duoneb 3 Mg/0.5 Mg (3 Ml) Ud) 3 ml INH RQ6 [facility] Last Admin: 10/25/16 08:18 Dose: 3 ml Budesonide (Pulmicort Respules) 0.5 mg INH RQ12 [facility] Last Admin: 10/25/16 08:18 Dose: 0.5 mg Diltiazem HCl (Cardizem) 60 mg GT QID [facility] Last Admin: 10/24/16 21:53 Dose: 60 mg Famotidine (Pepcid) 20 mg PO DAILY [facility] Last Admin: 10/24/16 09:04 Dose: 20 mg Propofol (Diprivan) 100 mls @ 2.327 mls/hr IV .Q24H PRN; Protocol; 5 MCG/KG/MIN PRN Reason: TITRATE PER MD ORDER Last Admin: 10/25/16 05:48 Dose: 13.962 mls/hr Rosuvastatin Calcium (Crestor) 10 mg PO HS [facility] Last Admin: 10/24/16 21:53 Dose: 10 mg - Labs Labs: 10/25/16 06:18 10/25/16 06:18 PT 13.8 SECONDS (9.7-12.2) H 10/22/16 05:45 INR 1.2 10/22/16 05:45 APTT 34 SECONDS (21-34) 10/22/16 05:45
[2016-10-25] MEDS ORDERED: Dexmedetomidine Hydrochloride 200 MCG in Sodium Chloride 0.9% 48 ML IVPB PRN (10:50)
--- NOTE | 2016-10-25 11:51 | CP.PCM.PN ---
Subjective - Date & Time of Evaluation Date of Evaluation: 10/25/16 Time of Evaluation: 11:48 - Subjective Subjective: CC: follow up abdominal distension Feeds held for diarrhea, and restarted at lower rate weaning attempt Objective - Vital Signs/Intake and Output Vital Signs (last 24 hours): Temp Pulse Resp BP Pulse Ox 97.5 F L 69 13 123/64 98 10/25/16 00:00 10/25/16 06:51 10/25/16 06:51 10/25/16 06:51 10/25/16 06:51 Intake and Output: 10/25/16 10/25/16 06:59 18:59 Intake Total 281.8 Output Total 1110 Balance -828.2 - Medications Medications: Current Medications Albuterol/Ipratropium (Duoneb 3 Mg/0.5 Mg (3 Ml) Ud) 3 ml INH RQ6 [facility] Last Admin: 10/25/16 08:18 Dose: 3 ml Budesonide (Pulmicort Respules) 0.5 mg INH RQ12 [facility] Last Admin: 10/25/16 08:18 Dose: 0.5 mg Diltiazem HCl (Cardizem) 60 mg GT QID [facility] Last Admin: 10/25/16 10:24 Dose: 60 mg Famotidine (Pepcid) 20 mg PO DAILY [facility] Last Admin: 10/25/16 10:24 Dose: 20 mg Propofol (Diprivan) 100 mls @ 2.327 mls/hr IV .Q24H PRN; Protocol; 5 MCG/KG/MIN PRN Reason: TITRATE PER MD ORDER Last Admin: 10/25/16 05:48 Dose: 13.962 mls/hr Dexmedetomidine HCl 200 mcg/ (Sodium Chloride) 50 mls @ 3.87 mls/hr IVPB TITR PRN; Protocol; 0.2 MCG/KG/HR PRN Reason: Agitation Last Admin: 10/25/16 11:35 Dose: 3.87 mls/hr Rosuvastatin Calcium (Crestor) 10 mg PO HS [facility] Last Admin: 10/24/16 21:53 Dose: 10 mg - Labs Labs: 10/25/16 06:18 10/25/16 06:18 PT 13.8 SECONDS (9.7-12.2) H 10/22/16 05:45 INR 1.2 10/22/16 05:45 APTT 34 SECONDS (21-34) 10/22/16 05:45 - Constitutional Appears: Chronically Ill - Head Exam Head Exam: NORMOCEPHALIC - Respiratory Exam Respiratory Exam: Decreased Breath Sounds - Cardiovascular Exam Cardiovascular Exam: Tachycardia, REGULAR RHYTHM - GI/Abdominal Exam GI & Abdominal Exam: Soft. absent: Distended, Tenderness, Mass Assessment and Plan (1) Respiratory failure Assessment & Plan: ON VENT weaning Status: Chronic (2) Abdominal distension Assessment & Plan: Stable Status: Acute (3) Confusion Assessment & Plan: Opens eyes in response to tactile stimuli Not a good candidate for PEG DNR appropriate Status: Acute (4) Anemia Assessment & Plan: stable No overt bleeding Status: Acute
--- NOTE | 2016-10-25 12:38 | CP.PCM.PN ---
Subjective - Date & Time of Evaluation Date of Evaluation: 10/25/16 Time of Evaluation: 12:36 - Subjective Subjective: remains intubated on vent.labs noted.worsening renal failure. Objective - Vital Signs/Intake and Output Vital Signs (last 24 hours): Temp Pulse Resp BP Pulse Ox 97.5 F L 69 13 123/64 98 10/25/16 00:00 10/25/16 06:51 10/25/16 06:51 10/25/16 06:51 10/25/16 06:51 Intake and Output: 10/25/16 10/25/16 06:59 18:59 Intake Total 281.8 Output Total 1110 Balance -828.2 - Medications Medications: Current Medications Albuterol/Ipratropium (Duoneb 3 Mg/0.5 Mg (3 Ml) Ud) 3 ml INH RQ6 [facility] Last Admin: 10/25/16 08:18 Dose: 3 ml Budesonide (Pulmicort Respules) 0.5 mg INH RQ12 [facility] Last Admin: 10/25/16 08:18 Dose: 0.5 mg Diltiazem HCl (Cardizem) 60 mg GT QID [facility] Last Admin: 10/25/16 10:24 Dose: 60 mg Famotidine (Pepcid) 20 mg PO DAILY [facility] Last Admin: 10/25/16 10:24 Dose: 20 mg Propofol (Diprivan) 100 mls @ 2.327 mls/hr IV .Q24H PRN; Protocol; 5 MCG/KG/MIN PRN Reason: TITRATE PER MD ORDER Last Admin: 10/25/16 05:48 Dose: 13.962 mls/hr Dexmedetomidine HCl 200 mcg/ (Sodium Chloride) 50 mls @ 3.87 mls/hr IVPB TITR PRN; Protocol; 0.2 MCG/KG/HR PRN Reason: Agitation Last Admin: 10/25/16 11:35 Dose: 3.87 mls/hr Rosuvastatin Calcium (Crestor) 10 mg PO HS [facility] Last Admin: 10/24/16 21:53 Dose: 10 mg - Labs Labs: 10/25/16 06:18 10/25/16 06:18 PT 13.8 SECONDS (9.7-12.2) H 10/22/16 05:45 INR 1.2 10/22/16 05:45 APTT 34 SECONDS (21-34) 10/22/16 05:45 - Head Exam Head Exam: NORMOCEPHALIC - Eye Exam Eye Exam: Normal appearance - ENT Exam ENT Exam: absent: Normal Exam - Neck Exam Neck Exam: Normal Inspection - Respiratory Exam Respiratory Exam: Decreased Breath Sounds - Cardiovascular Exam Cardiovascular Exam: REGULAR RHYTHM - GI/Abdominal Exam GI & Abdominal Exam: Soft Assessment and Plan - Assessment and Plan (Free Text) Assessment: copd.renal failure/. cpap trial.poss extubation.
--- NOTE | 2016-10-25 17:28 | CP.CCUPN ---
CCU Subjective - Physician Review Events Since Last Encounter (Free Text): 10/25/16 17:23 patient seen and examined this morning, stable, able to tolerate cpap, but gets agitated when woken up. ros unable since intubated pe: bp 152/67 mmhg, hr 65, rr 16, o2 99% on RA, afebrile alert and awake, oriented to person and place, following commands s1, s2 irregularly irregular lungs good bilateral air of entry abdomen soft, non tender skin redness around rectal area able to move all extremities a/p: respiratory distress: resolved, extubated successfully today. Spoke to nice at bedside this afternoon and she still wants her to be DNI and understands that she is very likely to go into respiratory failure again, OK to eat in afternoon if does well. a. fibrillation:rate controlled, on no anticoagulation due to bleed order pt/ot CCU Objective - Vital Signs / Intake & Output Vital Signs (Last 4 hours): Vital Signs Pulse Resp BP Pulse Ox 10/25/16 14:30 68 29 H 98 10/25/16 13:51 65 19 154/61 H 97 Intake and Output (Last 8hrs): Intake & Output 10/25/16 10/25/16 10/25/16 06:59 14:59 22:59 Intake Total 198.2 96.1 0 Output Total 950 470 30 Balance -751.8 -373.9 -30 Intake: Intake, IV Amount 88.2 16.1 Left Proximal Port 3.5 External Jugular Left Distal Port External 88.2 12.6 Jugular Tube Feeding 60 80 0 Other 50 Output: Urine 650 270 30 Urethral (Perez) 650 270 30 Stool 300 200 0 - Physical Exam Head: Positive for: Atraumatic, Normocephalic Pupils: Positive for: PERRL Extroacular Muscles: Positive for: EOMI Conjunctiva: Positive for: Injected Mouth: Positive for: Dry Nose (Internal): Positive for: Other (Nasal packing in place) Neck: Positive for: Normal Range of Motion Respiratory/Chest: Positive for: Clear to Auscultation, Good Air Exchange, Rales. Negative for: Respiratory Distress, Accessory Muscle Use, Wheezes Cardiovascular: Positive for: Normal S1, S2, Irregular Rhythm. Negative for: Regular Rate and Rhythm, Murmurs Abdomen: Positive for: Distention, Normal Bowel Sounds. Negative for: Peritoneal Signs, Rebound Genitourinary/Pelvic Exam: Positive for: Other (perez in place) Upper Extremity: Positive for: Normal Inspection. Negative for: Cyanosis, Edema Lower Extremity: Positive for: Normal Inspection. Negative for: Edema, CALF TENDERNESS Neurological: Positive for: Other (sedated but responsive to stimuli) Skin: Positive for: Warm, Dry Psychiatric: Positive for: Alert - Medications Active Medications: Active Medications Generic Name Dose Route Start Last Admin Trade Name Freq PRN Reason Stop Dose Admin Albuterol/Ipratropium 3 ml 10/24/16 14:00 10/25/16 14:12 Duoneb 3 Mg/0.5 Mg (3 Ml) Ud INH 3 ml RQ6 KAILA Administration Budesonide 0.5 mg 10/02/16 20:00 10/25/16 08:18 Pulmicort Respules INH 0.5 mg RQ12 KAILA Administration Diltiazem HCl 60 mg 10/10/16 14:00 10/25/16 16:46 Cardizem GT Not Given QID KAILA Famotidine 20 mg 10/23/16 10:00 10/25/16 10:24 Pepcid PO 20 mg DAILY KAILA Administration Propofol 100 mls @ 2.327 mls/hr 10/22/16 11:43 10/25/16 05:48 Diprivan IV 13.962 mls/hr .Q24H PRN Administration TITRATE PER MD ORDER Protocol 5 MCG/KG/MIN Dexmedetomidine HCl 200 mcg/ 50 mls @ 3.87 mls/hr 10/25/16 10:50 10/25/16 11:35 Sodium Chloride IVPB 3.87 mls/hr TITR PRN Administration Agitation Protocol 0.2 MCG/KG/HR Rosuvastatin Calcium 10 mg 09/23/16 22:00 10/24/16 21:53 Crestor PO 10 mg HS KAILA Administration - Patient Studies Lab Studies: Lab Studies 10/25/16 10/25/16 Range/Units 06:18 05:20 WBC 4.9 (4.8-10.8) K/uL RBC 2.97 L (3.80-5.20) Mil/uL Hgb 8.9 L (11.0-16.0) g/dL Hct 26.7 L (34.0-47.0) % MCV 89.8 (81.0-99.0) fL MCH 29.8 (27.0-31.0) pg MCHC 33.2 (33.0-37.0) g/dL RDW 15.4 H (11.5-14.5) % Plt Count 141 (130-400) K/uL MPV 10.3 (7.2-11.7) fL Neut % (Auto) 76.3 H (50.0-75.0) % Lymph % (Auto) 13.7 L (20.0-40.0) % Gregory % (Auto) 8.5 (0.0-10.0) % Eos % (Auto) 1.3 (0.0-4.0) % Baso % (Auto) 0.2 (0.0-2.0) % Neut # 3.8 (1.8-7.0) K/uL Lymph # 0.7 L (1.0-4.3) K/uL Gregory # 0.4 (0.0-0.8) K/uL Eos # 0.1 (0.0-0.7) K/uL Baso # 0.0 (0.0-0.2) K/uL Neutrophils % (Manual) 78 H (50-75) % Band Neutrophils % 3 H (0-2) % Lymphocytes % (Manual) 12 L (20-40) % Monocytes % (Manual) 5 (0-10) % Myelocytes % 2 H (0-0) % Platelet Estimate Normal (NORMAL) Large Platelets Present Hypochromasia (manual) Slight Poikilocytosis (manual Slight Anisocytosis (manual) Slight Microcytosis (manual) Slight Tear Drop Cells Slight Jose J Cells Slight Puncture Site Rr pCO2 31 L (35-45) mm/Hg pO2 99 (80-100) mm/Hg HCO3 18.2 L (21-28) mmol/L ABG pH 7.33 L (7.35-7.45) ABG Total CO2 17.3 L (22-28) mmol/L ABG O2 Saturation 99.3 H (95-98) % ABG Base Excess -8.7 L (-2.0-3.0) mmol/L ABG Hemoglobin 8.6 L (11.7-17.4) g/dL ABG Carboxyhemoglobin 2.0 H (0.5-1.5) % POC ABG HHb (Measured) 0.7 (0.0-5.0) % ABG Methemoglobin 1.0 (0.0-3.0) % Fish Test Pos A-a O2 Difference 76.0 mm/Hg Respiratory Index 0.8 Hgb O2 Saturation 96.3 (95.0-98.0) % Mechanical Rate 14 FiO2 30.0 % Tidal Volume 500 PEEP 5 Sodium 148 (132-148) mmol/L Potassium 4.1 (3.6-5.2) mmol/L Chloride 119 H (98-107) mmol/L Carbon Dioxide 17 L (22-30) mmol/L Anion Gap 16 (10-20) BUN 47 H (7-17) mg/dL Creatinine 2.7 H (0.7-1.2) MG/DL Est GFR ( Amer) 20 Est GFR (Non-Af Amer) 17 Random Glucose 102 (65-105) mg/dL Calcium 7.7 L (8.6-10.4) mg/dl Phosphorus 3.6 (2.5-4.5) mg/dL Magnesium 2.1 (1.6-2.3) mg/dL Total Bilirubin 0.3 (0.2-1.3) mg/dL AST 21 (14-36) U/L ALT 34 (9-52) U/L Alkaline Phosphatase 50 (38-126) U/L Total Protein 4.1 L (6.3-8.3) g/dL Albumin 2.0 L (3.5-5.0) g/dL Globulin 2.1 L (2.2-3.9) gm/dL Albumin/Globulin Ratio 1.0 (1.0-2.1) Laboratory Results - last 24 hr 10/25/16 10/25/16 05:20 06:18 WBC 4.9 RBC 2.97 L Hgb 8.9 L Hct 26.7 L MCV 89.8 MCH 29.8 MCHC 33.2 RDW 15.4 H Plt Count 141 MPV 10.3 Neut % (Auto) 76.3 H Lymph % (Auto) 13.7 L Gregory % (Auto) 8.5 Eos % (Auto) 1.3 Baso % (Auto) 0.2 Neut # 3.8 Lymph # 0.7 L Gregory # 0.4 Eos # 0.1 Baso # 0.0 Neutrophils % (Manual) 78 H Band Neutrophils % 3 H Lymphocytes % (Manual) 12 L Monocytes % (Manual) 5 Myelocytes % 2 H Platelet Estimate Normal Large Platelets Present Hypochromasia (manual) Slight Poikilocytosis (manual Slight Anisocytosis (manual) Slight Microcytosis (manual) Slight Tear Drop Cells Slight [place] Cells Slight Puncture Site Rr pCO2 31 L pO2 99 HCO3 18.2 L ABG pH 7.33 L ABG Total CO2 17.3 L ABG O2 Saturation 99.3 H ABG Base Excess -8.7 L ABG Hemoglobin 8.6 L ABG Carboxyhemoglobin 2.0 H POC ABG HHb (Measured) 0.7 ABG Methemoglobin 1.0 Fish Test Pos A-a O2 Difference 76.0 Respiratory Index 0.8 Hgb O2 Saturation 96.3 Mechanical Rate 14 FiO2 30.0 Tidal Volume 500 PEEP 5 Sodium 148 Potassium 4.1 Chloride 119 H Carbon Dioxide 17 L Anion Gap 16 BUN 47 H Creatinine 2.7 H Est GFR ( Amer) 20 Est GFR (Non-Af Amer) 17 Random Glucose 102 Calcium 7.7 L Phosphorus 3.6 Magnesium 2.1 Total Bilirubin 0.3 AST 21 ALT 34 Alkaline Phosphatase 50 Total Protein 4.1 L Albumin 2.0 L Globulin 2.1 L Albumin/Globulin Ratio 1.0 Fingerstick Blood Sugar Results: 127 Critical Care Progress Note - Nutrition Nutrition: Nutrition Category Date Time Status Liquid Diet [DIET] Diets 10/18/16 Breakfast Active
[2016-10-26] MEDS: Albuterol-Ipratrop 3 mg / 0.5 (3 ml) UD INH SCH ×4 (01:11→19:32)
--- NOTE | 2016-10-26 02:48 | PN ---
DATE: 10/25/2016 The patient is located in ICU, bed 10. SUBJECTIVE: increased BUN and creatinine and in for further evaluation renal failure and chronic kidney disease. HISTORY OF PRESENT ILLNESS: The patient an 86-year-old elderly female with a history of chronic obstructive pulmonary disease, who was admitted with shortness of breath and altered mental status. Subsequently, patient was admitted to ICU and intubated. Status post extubation and status post thoracentesis on the left side, the patient was also found to have AFib with worsening shortness of breath and reintubated and transferred back to ICU. The patient is on ventilator and on CPAP for possible extubation today. Case discussed with [employer], . The patient is arousable and not in distress. PHYSICAL EXAMINATION: VITAL SIGNS: As follows morning: Blood pressure 139/63, pulse 70, respirations about 18 and temperature is 97.4. Height 5 feet 2 inches and weight is 171 pounds. GENERAL: The patient is an 86-year-old elderly female on ventilator and awake, not in distress. HEENT: Pupils normal, reactive to light and accommodation. Conjunctivae pink. Sclerae anicteric. On ventilator. NECK: No thyroid enlargement. LUNGS: Symmetric on both sides. Bilateral breath sounds present. Occasional basal crackles present. CARDIOVASCULAR: [place] in the fifth intercostal space midclavicular line. S1 and S2 audible. No murmur or gallop. ABDOMEN: Normal in appearance, soft, tympanic. No guarding, no rigidity. No hepatosplenomegaly. CENTRAL NERVOUS SYSTEM: The patient is awake on ventilator. EXTREMITIES: No cyanosis, no clubbing. Trace to 1+ edema in both lower extremities. MEDICATIONS: Include as follows: Diltiazem 60 mg by G-tube 4 times a day and Crestor 10 mg at bedtime, DuoNeb inhaler 3 mL every 6 hours, Lasix 60 mg IV x 1 yesterday and Pepcid 20 mg p.o. daily and propofol and Pulmicort . LABORATORY DATA: Include as follows: As of 10/25/2016, WBC 4.9, hemoglobin 8.9 , hematocrit is 26.7, platelets 141, neutrophils 78, bands 3, and monocytes 5 and lymphocytes 12%, myelocytes 2%. ABG: pH 7.33, pCO2 of 31, pO2 is 99, bicarbonate is 18.2, saturation 99.3 with vent settings AC 14, tidal volume 500 , FiO2 40%, PEEP of 5. Sodium is 148, potassium 4.1, chloride 119, CO2 17, BUN 47, creatinine 2.7, glucose 106, calcium 7.7, phosphorus 3.6, magnesium 2.1, total bilirubin 0.3, AST 21, ALT 34, alkaline phosphatase is 50, total protein 4.1, and albumin is 2.1. Is and Os 24 hours, intake is 1777 and output is 425. SUMMARY: The patient is an 86-year-old elderly female with a history of chronic obstructive pulmonary disease, atrial fibrillation, respiratory failure with increased BUN and creatinine. 1. Nonoliguric acute renal failure, cannot rule out acute tubular necrosis at this time. Her baseline creatinine is about 1.0 on 10/11/2016. 2. Respiratory failure. 3. Chronic obstructive pulmonary disease. 4. Renal function is stable for the last 2-3 days. Overall, prognosis is very poor and case discussed with [employer] this morning at 11 for possible extubation today. Overall, prognosis is very poor. Thank you for allowing me to participate in your patient's care. Ann Garzon MD cc: [id number] TT: 10/26/2016 02:47:09 Confirmation # [id number] Dictation # [id number] sharifa BARON
[2016-10-26 06:01] LABS: BASO % 0.4 % (0.0-2.0); EOS % 0.9 % (0.0-4.0); HEMATOCRIT 28.4 % (34.0-47.0); LYMPH # 0.6 K/uL (1.0-4.3); LYMPH % 12.5 % (20.0-40.0); MEAN CELL VOLUME 91.5 fL (81.0-99.0); MEAN CORPUSCULAR HEMOGLOBIN 29.9 pg (27.0-31.0); MEAN CORPUSCULAR HGB CONC 32.7 g/dL (33.0-37.0); MONO # 0.6 K/uL (0.0-0.8); MONO % 11.2 % (0.0-10.0); NRBC % 0.2 % (0.0-2.0); RED CELL DISTRIBUTION WIDTH 15.9 % (11.5-14.5); WHITE BLOOD COUNT 5.2 K/uL (4.8-10.8)
[2016-10-26 06:09] LABS: POTASSIUM 3.7 mmol/L (3.6-5.2)
[2016-10-26 06:11] LABS: BILIRUBIN,TOTAL 0.5 mg/dL (0.2-1.3)
[2016-10-26 06:12] LABS: ALB/GLOB RATIO 0.9 (1.0-2.1); PHOSPHOROUS 3.8 mg/dL (2.5-4.5); TOTAL PROTEIN 4.7 g/dL (6.3-8.3)
[2016-10-26 06:13] LABS: CALCIUM 8.1 mg/dl (8.6-10.4); MAGNESIUM 2.1 mg/dL (1.6-2.3)
--- NOTE | 2016-10-26 08:06 | RAD ---
HISTORY: intubated COMPARISON: Comparison is made to the previous study dated FINDINGS: LUNGS: Interval appearance of hazy opacity at the left lower lobe likely atelectasis or and pleural effusion. Status post extubation since the previous exam. PLEURA: Possible atelectasis or left pleural effusion. CARDIOVASCULAR: Normal. OSSEOUS STRUCTURES: No significant abnormalities. VISUALIZED UPPER ABDOMEN: Normal. OTHER FINDINGS: None. IMPRESSION: Status post extubation. Interval appearance of hazy opacity at the left lower chest likely due to atelectasis or pleural effusion .
[2016-10-26] MEDS: Budesonide 0.5 mg/2 ml Inhal Susp UD INH SCH ×2 (08:49→19:32)
--- NOTE | 2016-10-26 12:52 | CP.PCM.PN ---
Subjective - Date & Time of Evaluation Date of Evaluation: 10/26/16 Time of Evaluation: 12:51 - Subjective Subjective: extubated in nad. Objective - Vital Signs/Intake and Output Vital Signs (last 24 hours): Temp Pulse Resp BP Pulse Ox 97.7 F 87 22 175/70 H 97 10/26/16 12:00 10/26/16 12:00 10/26/16 12:00 10/26/16 12:00 10/26/16 12:00 Intake and Output: 10/26/16 10/26/16 06:59 18:59 Intake Total 210 720 Output Total 700 185 Balance -490 535 - Medications Medications: Current Medications Albuterol/Ipratropium (Duoneb 3 Mg/0.5 Mg (3 Ml) Ud) 3 ml INH RQ6 [facility] Last Admin: 10/26/16 08:49 Dose: 3 ml Budesonide (Pulmicort Respules) 0.5 mg INH RQ12 [facility] Last Admin: 10/26/16 08:49 Dose: 0.5 mg Diltiazem HCl (Cardizem) 60 mg GT QID [facility] Last Admin: 10/26/16 09:31 Dose: Not Given Famotidine (Pepcid) 20 mg PO DAILY [facility] Last Admin: 10/26/16 09:31 Dose: Not Given Propofol (Diprivan) 100 mls @ 2.327 mls/hr IV .Q24H PRN; Protocol; 5 MCG/KG/MIN PRN Reason: TITRATE PER MD ORDER Last Titration: 10/25/16 19:00 Dose: 0 mcg/kg/min Dexmedetomidine HCl 200 mcg/ (Sodium Chloride) 50 mls @ 3.87 mls/hr IVPB TITR PRN; Protocol; 0.2 MCG/KG/HR PRN Reason: Agitation Last Titration: 10/25/16 19:00 Dose: 0 mcg/kg/hr Rosuvastatin Calcium (Crestor) 10 mg PO HS [facility] Last Admin: 10/25/16 22:21 Dose: 10 mg - Labs Labs: 10/26/16 05:58 10/26/16 05:54 PT 13.8 SECONDS (9.7-12.2) H 10/22/16 05:45 INR 1.2 10/22/16 05:45 APTT 34 SECONDS (21-34) 10/22/16 05:45 - Constitutional Appears: No Acute Distress, Chronically Ill - Head Exam Head Exam: NORMOCEPHALIC - Neck Exam Neck Exam: Normal Inspection - Respiratory Exam Respiratory Exam: Clear to Ausculation Bilateral - Cardiovascular Exam Cardiovascular Exam: REGULAR RHYTHM, Murmur - GI/Abdominal Exam GI & Abdominal Exam: Soft - Extremities Exam Extremities Exam: Pedal Edema Assessment and Plan - Assessment and Plan (Free Text) Assessment: labs,vitals noted.extubated.nsr, hopefuly transfer to floor.
--- NOTE | 2016-10-26 14:03 | CP.PCM.PN ---
Subjective - Date & Time of Evaluation Date of Evaluation: 10/26/16 Time of Evaluation: 13:59 - Subjective Subjective: COVERING DR BARTLETT/RACHEL Extubated today and tolerating liquids with assistance per nursing staff, no vomiting or bleeding, very sleepy. Objective - Vital Signs/Intake and Output Vital Signs (last 24 hours): Temp Pulse Resp BP Pulse Ox 97.7 F 87 22 175/70 H 97 10/26/16 12:00 10/26/16 12:00 10/26/16 12:00 10/26/16 12:00 10/26/16 12:00 Intake and Output: 10/26/16 10/26/16 06:59 18:59 Intake Total 210 720 Output Total 700 225 Balance -490 495 - Medications Medications: Current Medications Albuterol/Ipratropium (Duoneb 3 Mg/0.5 Mg (3 Ml) Ud) 3 ml INH RQ6 [facility] Last Admin: 10/26/16 13:19 Dose: Not Given Budesonide (Pulmicort Respules) 0.5 mg INH RQ12 [facility] Last Admin: 10/26/16 08:49 Dose: 0.5 mg Diltiazem HCl (Cardizem) 60 mg GT QID [facility] Last Admin: 10/26/16 13:46 Dose: Not Given Famotidine (Pepcid) 20 mg PO DAILY [facility] Last Admin: 10/26/16 09:31 Dose: Not Given Propofol (Diprivan) 100 mls @ 2.327 mls/hr IV .Q24H PRN; Protocol; 5 MCG/KG/MIN PRN Reason: TITRATE PER MD ORDER Last Titration: 10/25/16 19:00 Dose: 0 mcg/kg/min Dexmedetomidine HCl 200 mcg/ (Sodium Chloride) 50 mls @ 3.87 mls/hr IVPB TITR PRN; Protocol; 0.2 MCG/KG/HR PRN Reason: Agitation Last Titration: 10/25/16 19:00 Dose: 0 mcg/kg/hr Rosuvastatin Calcium (Crestor) 10 mg PO HS [facility] Last Admin: 10/25/16 22:21 Dose: 10 mg - Labs Labs: 10/26/16 05:58 10/26/16 05:54 PT 13.8 SECONDS (9.7-12.2) H 10/22/16 05:45 INR 1.2 10/22/16 05:45 APTT 34 SECONDS (21-34) 10/22/16 05:45 - Constitutional Appears: Other (somewhat lethargic but wakes to command and questioning) - Head Exam Head Exam: ATRAUMATIC, NORMOCEPHALIC - Respiratory Exam Respiratory Exam: Decreased Breath Sounds - Cardiovascular Exam Cardiovascular Exam: REGULAR RHYTHM - GI/Abdominal Exam GI & Abdominal Exam: Soft, Normal Bowel Sounds. absent: Distended, Guarding, Tenderness, Mass - Extremities Exam Extremities Exam: Normal Inspection Assessment and Plan (1) COPD (chronic obstructive pulmonary disease) Assessment & Plan: Management per Pulmonary care Status: Chronic (2) Acute respiratory failure with hypoxia and hypercarbia Assessment & Plan: Now extubated and appears comfortable but drowsy Status: Resolved (3) Ileus Assessment & Plan: Tolerating diet thus far without vomiting or distension Advance diet as tolerated. Status: Acute (4) Iron (Fe) deficiency anemia Assessment & Plan: No change in H/H and no bleeding reported Observe Status: Acute
--- NOTE | 2016-10-26 17:18 | CP.PCM.PN ---
Subjective - Date & Time of Evaluation Date of Evaluation: 10/26/16 Time of Evaluation: 09:00 - Subjective Subjective: Patient seen and examined in the intensive care unit. Patient extubated yesterday in no respiratory distress but appears drowsy Able to eat with assistance Afebrile Objective - Vital Signs/Intake and Output Vital Signs (last 24 hours): Temp Pulse Resp BP Pulse Ox 97.4 F L 71 24 159/71 H 96 10/26/16 16:00 10/26/16 16:00 10/26/16 16:00 10/26/16 16:00 10/26/16 16:00 Intake and Output: 10/26/16 10/26/16 06:59 18:59 Intake Total 210 840 Output Total 700 320 Balance -490 520 - Medications Medications: Current Medications Albuterol/Ipratropium (Duoneb 3 Mg/0.5 Mg (3 Ml) Ud) 3 ml INH RQ6 [facility] Last Admin: 10/26/16 13:19 Dose: Not Given Budesonide (Pulmicort Respules) 0.5 mg INH RQ12 [facility] Last Admin: 10/26/16 08:49 Dose: 0.5 mg Diltiazem HCl (Cardizem) 60 mg GT QID [facility] Last Admin: 10/26/16 13:46 Dose: Not Given Famotidine (Pepcid) 20 mg PO DAILY [facility] Last Admin: 10/26/16 09:31 Dose: Not Given Propofol (Diprivan) 100 mls @ 2.327 mls/hr IV .Q24H PRN; Protocol; 5 MCG/KG/MIN PRN Reason: TITRATE PER MD ORDER Last Titration: 10/25/16 19:00 Dose: 0 mcg/kg/min Dexmedetomidine HCl 200 mcg/ (Sodium Chloride) 50 mls @ 3.87 mls/hr IVPB TITR PRN; Protocol; 0.2 MCG/KG/HR PRN Reason: Agitation Last Titration: 10/25/16 19:00 Dose: 0 mcg/kg/hr Rosuvastatin Calcium (Crestor) 10 mg PO HS [facility] Last Admin: 10/25/16 22:21 Dose: 10 mg - Labs Labs: 10/26/16 05:58 10/26/16 05:54 PT 13.8 SECONDS (9.7-12.2) H 10/22/16 05:45 INR 1.2 10/22/16 05:45 APTT 34 SECONDS (21-34) 10/22/16 05:45 - Head Exam Head Exam: ATRAUMATIC, NORMOCEPHALIC - ENT Exam ENT Exam: Mucous Membranes Moist - Neck Exam Neck Exam: Normal Inspection - Respiratory Exam Respiratory Exam: Decreased Breath Sounds - Cardiovascular Exam Cardiovascular Exam: REGULAR RHYTHM - GI/Abdominal Exam GI & Abdominal Exam: Soft, Normal Bowel Sounds Assessment and Plan (1) Acute respiratory failure with hypoxia and hypercarbia Assessment & Plan: Status post extubation breathing better Patient DNR/DNI Continue nebulizer treatment Transfer to floor Status: Resolved (2) COPD (chronic obstructive pulmonary disease) Status: Chronic (3) Acute [place] Status: Acute (4) Leucocytosis Status: Acute
--- NOTE | 2016-10-26 17:33 | CP.PCM.PN ---
Subjective - Date & Time of Evaluation Date of Evaluation: 10/26/16 Time of Evaluation: 17:33 - Subjective Subjective: pt seen and examined, follow up consult is dictated #[id number] Objective - Vital Signs/Intake and Output Vital Signs (last 24 hours): Temp Pulse Resp BP Pulse Ox 97.4 F L 71 24 159/71 H 96 10/26/16 16:00 10/26/16 16:00 10/26/16 16:00 10/26/16 16:00 10/26/16 16:00 Intake and Output: 10/26/16 10/26/16 06:59 18:59 Intake Total 210 840 Output Total 700 320 Balance -490 520 - Medications Medications: Current Medications Albuterol/Ipratropium (Duoneb 3 Mg/0.5 Mg (3 Ml) Ud) 3 ml INH RQ6 [facility] Last Admin: 10/26/16 13:19 Dose: Not Given Budesonide (Pulmicort Respules) 0.5 mg INH RQ12 [facility] Last Admin: 10/26/16 08:49 Dose: 0.5 mg Diltiazem HCl (Cardizem) 60 mg GT QID [facility] Last Admin: 10/26/16 13:46 Dose: Not Given Famotidine (Pepcid) 20 mg PO DAILY [facility] Last Admin: 10/26/16 09:31 Dose: Not Given Propofol (Diprivan) 100 mls @ 2.327 mls/hr IV .Q24H PRN; Protocol; 5 MCG/KG/MIN PRN Reason: TITRATE PER MD ORDER Last Titration: 10/25/16 19:00 Dose: 0 mcg/kg/min Dexmedetomidine HCl 200 mcg/ (Sodium Chloride) 50 mls @ 3.87 mls/hr IVPB TITR PRN; Protocol; 0.2 MCG/KG/HR PRN Reason: Agitation Last Titration: 10/25/16 19:00 Dose: 0 mcg/kg/hr Rosuvastatin Calcium (Crestor) 10 mg PO HS [facility] Last Admin: 10/25/16 22:21 Dose: 10 mg - Labs Labs: 10/26/16 05:58 10/26/16 05:54 PT 13.8 SECONDS (9.7-12.2) H 10/22/16 05:45 INR 1.2 10/22/16 05:45 APTT 34 SECONDS (21-34) 10/22/16 05:45
--- NOTE | 2016-10-27 00:20 | PN ---
DATE: 10/26/2016 The patient is located in ICU bed 10. HISTORY OF PRESENT ILLNESS: The patient is an 83-year-old elderly female with a history of COPD, a smoker, who was admitted with altered mental status and shortness of breath, status post intubation and extubation x 2. The patient was extubated yesterday. The patient is more alert, awake, following commands appropriately. No chest pain, no palpitations, and wants to go home. PHYSICAL EXAMINATION: VITAL SIGNS: As follows: Blood pressure 159/71, pulse 71, respirations 24, temperature 97.4, saturation 96%, height 5 feet 2 inches, and weight is 145 pounds. GENERAL: The patient is an 86-year-old elderly female, moderately built, moderately nourished, not in acute distress. HEENT: Pupils normal, reactive to light and accommodation. Conjunctivae pink. Sclerae anicteric. Tongue is moist. NECK: Trachea is midline. LUNGS: Symmetric on both sides. Bilateral breath sounds present. Occasional basal crackles present. CARDIOVASCULAR: [place] in the fifth intercostal space, midclavicular line. S1, S2 audible. No murmur or gallop. ABDOMEN: Normal in appearance, soft, tympanic. No guarding, no rigidity, ho hepatosplenomegaly. CENTRAL NERVOUS SYSTEM: The patient is alert, awake, oriented x 2-3. Sensory and motor system is within normal limits. EXTREMITIES: No cyanosis, no clubbing, no edema. CURRENT MEDICATIONS: Include as follows: Diltiazem 60 mg 4 times daily, Crestor 10 mg at bedtime, DuoNeb inhaler q. 6 hours, famotidine 20 mg p.o. daily , Pulmicort 0.5 mg inhaler q. 12 hours. LABORATORY RESULTS: Include as follows: As of 10/26/2016: WBC 5.8, hemoglobin 9.3, hematocrit is 28.4, platelets 168. Sodium 151, potassium 3.7, chloride 122, CO2 17, BUN 47, creatinine 2.7, glucose 72, calcium 8.1, phosphorus 3.8, magnesium 2.1, total bilirubin 0.8, AST 24, ALT 40, alkaline phosphatase is 50, total protein 4.7, and albumin is 2.2. SUMMARY: The patient is an 86-year-old elderly female with chronic obstructive pulmonary disease , status post extubation yesterday with increased BUN and creatinine and low H and H. 1. Nonoliguric acute renal failure. Rule out acute tubular necrosis versus intravascular volume depletion. 2. Anemia. 3. Hypernatremia. I encouraged p.o. fluid intake, and we will start IV fluids of D5W at 50 mL per hour. We will follow with you. Thank you for allowing me to participate in your patient's care. We will follow BMP in a.m. and also patient is a DNR/DNI. The case was discussed with in rounds. Ann Garzon MD cc: [id number] TT: 10/27/2016 00:19:36 Confirmation # [id number] Dictation # [id number]
[2016-10-27] MEDS: Albuterol-Ipratrop 3 mg / 0.5 (3 ml) UD INH SCH ×4 (01:07→19:39)
[2016-10-27 06:19] LABS: BASO % 0.3 % (0.0-2.0); EOS # 0.1 K/uL (0.0-0.7); EOS % 1.1 % (0.0-4.0); HEMATOCRIT 26.8 % (34.0-47.0); LYMPH # 0.7 K/uL (1.0-4.3); LYMPH % 13.1 % (20.0-40.0); MEAN CELL VOLUME 91.4 fL (81.0-99.0); MEAN CORPUSCULAR HEMOGLOBIN 30.3 pg (27.0-31.0); MEAN CORPUSCULAR HGB CONC 33.1 g/dL (33.0-37.0); MEAN PLATELET VOLUME 9.6 fL (7.2-11.7); MONO # 0.6 K/uL (0.0-0.8); MONO % 11.6 % (0.0-10.0); NRBC % 0.1 % (0.0-2.0); PLATELET COUNT 200 K/uL (130-400); RED CELL DISTRIBUTION WIDTH 16.1 % (11.5-14.5); WHITE BLOOD COUNT 5.4 K/uL (4.8-10.8)
[2016-10-27 06:29] LABS: POTASSIUM 3.4 mmol/L (3.6-5.2)
[2016-10-27 06:31] LABS: ALB/GLOB RATIO 0.9 (1.0-2.1); BILIRUBIN,TOTAL 0.5 mg/dL (0.2-1.3); TOTAL PROTEIN 4.6 g/dL (6.3-8.3)
[2016-10-27] MEDS: Budesonide 0.5 mg/2 ml Inhal Susp UD INH SCH ×2 (08:01→19:39)
[2016-10-27 10:06] LABS: METAMYELOCYTE 1 % (0-0); NEUTROPHIL 67 % (50-75); TOTAL CELLS COUNTED 100
--- NOTE | 2016-10-27 11:41 | CP.PCM.PN ---
Subjective - Date & Time of Evaluation Date of Evaluation: 10/27/16 Time of Evaluation: 11:39 - Subjective Subjective: COVERING DR BARTLETT/RACHEL Patient more alert today and wants to go home No SOB, tolerating diet so far Objective - Vital Signs/Intake and Output Vital Signs (last 24 hours): Temp Pulse Resp BP Pulse Ox 97.6 F 75 24 145/65 94 L 10/27/16 08:00 10/27/16 10:00 10/27/16 10:00 10/27/16 10:00 10/27/16 10:00 Intake and Output: 10/27/16 10/27/16 06:59 18:59 Intake Total 350 360 Output Total 520 215 Balance -170 145 - Medications Medications: Current Medications Albuterol/Ipratropium (Duoneb 3 Mg/0.5 Mg (3 Ml) Ud) 3 ml INH RQ6 [facility] Last Admin: 10/27/16 08:01 Dose: Not Given Budesonide (Pulmicort Respules) 0.5 mg INH RQ12 [facility] Last Admin: 10/27/16 08:01 Dose: Not Given Diltiazem HCl (Cardizem) 60 mg GT QID [facility] Last Admin: 10/27/16 09:33 Dose: 60 mg Famotidine (Pepcid) 20 mg PO DAILY [facility] Last Admin: 10/27/16 09:33 Dose: 20 mg Propofol (Diprivan) 100 mls @ 2.327 mls/hr IV .Q24H PRN; Protocol; 5 MCG/KG/MIN PRN Reason: TITRATE PER MD ORDER Last Titration: 10/25/16 19:00 Dose: 0 mcg/kg/min Dexmedetomidine HCl 200 mcg/ (Sodium Chloride) 50 mls @ 3.87 mls/hr IVPB TITR PRN; Protocol; 0.2 MCG/KG/HR PRN Reason: Agitation Last Titration: 10/25/16 19:00 Dose: 0 mcg/kg/hr Rosuvastatin Calcium (Crestor) 10 mg PO HS [facility] Last Admin: 10/26/16 21:55 Dose: 10 mg - Labs Labs: 10/27/16 06:08 10/27/16 06:04 PT 13.8 SECONDS (9.7-12.2) H 10/22/16 05:45 INR 1.2 10/22/16 05:45 APTT 34 SECONDS (21-34) 10/22/16 05:45 - Constitutional Appears: No Acute Distress - Head Exam Head Exam: ATRAUMATIC, NORMOCEPHALIC - Respiratory Exam Respiratory Exam: Decreased Breath Sounds - Cardiovascular Exam Cardiovascular Exam: REGULAR RHYTHM - GI/Abdominal Exam GI & Abdominal Exam: Soft, Normal Bowel Sounds. absent: Tenderness - Extremities Exam Extremities Exam: Normal Inspection Assessment and Plan (1) COPD (chronic obstructive pulmonary disease) Status: Chronic (2) Ileus Assessment & Plan: Clinically improved. Advance diet as tolerated. Status: Acute (3) Iron (Fe) deficiency anemia Assessment & Plan: Monitor for bleeding. No workup at this time in absence of active bleeding Repeat CBC. Status: Acute
[2016-10-27] MEDS: Potassium Chloride 20 mEq ER Tab PO SCH ×2 (12:20→17:05)
[2016-10-28] MEDS: Albuterol-Ipratrop 3 mg / 0.5 (3 ml) UD INH SCH ×3 (01:11→19:45)
[2016-10-28] MEDS: Budesonide 0.5 mg/2 ml Inhal Susp UD INH SCH ×2 (07:52→19:46)
[2016-10-28 09:35] LABS: POTASSIUM 3.9 mmol/L (3.6-5.2)
[2016-10-28 09:38] LABS: CALCIUM 7.9 mg/dl (8.6-10.4)
[2016-10-28] MEDS: Potassium Chloride 20 mEq ER Tab PO SCH ×2 (09:47→17:44)
--- NOTE | 2016-10-28 13:47 | CP.PCM.PN ---
Subjective - Date & Time of Evaluation Date of Evaluation: 10/28/16 Time of Evaluation: 13:46 - Subjective Subjective: pt seen and examined, follow up consult is dictated #[id number] Objective - Vital Signs/Intake and Output Vital Signs (last 24 hours): Temp Pulse Resp BP Pulse Ox 97.4 F L 76 22 137/57 L 96 10/28/16 09:35 10/28/16 09:35 10/28/16 09:35 10/28/16 09:35 10/28/16 09:35 Intake and Output: 10/28/16 10/28/16 06:59 18:59 Intake Total 550 Output Total 650 Balance -100 - Medications Medications: Current Medications Albuterol/Ipratropium (Duoneb 3 Mg/0.5 Mg (3 Ml) Ud) 3 ml INH RQ6 [facility] Last Admin: 10/28/16 07:52 Dose: 3 ml Budesonide (Pulmicort Respules) 0.5 mg INH RQ12 [facility] Last Admin: 10/28/16 07:52 Dose: 0.5 mg Diltiazem HCl (Cardizem) 60 mg GT QID [facility] Last Admin: 10/28/16 09:47 Dose: 60 mg Famotidine (Pepcid) 20 mg PO DAILY [facility] Last Admin: 10/28/16 09:47 Dose: 20 mg Hypromellose (Tears Naturale Forte) 2 ml OU BID [facility] Potassium Chloride (K-Dur 20 Meq Er Tab) 20 meq PO BID [facility] Last Admin: 10/28/16 09:47 Dose: 20 meq Rosuvastatin Calcium (Crestor) 10 mg PO HS [facility] Last Admin: 10/27/16 21:22 Dose: 10 mg - Labs Labs: 10/27/16 06:08 10/28/16 06:45 PT 13.8 SECONDS (9.7-12.2) H 10/22/16 05:45 INR 1.2 10/22/16 05:45 APTT 34 SECONDS (21-34) 10/22/16 05:45
--- NOTE | 2016-10-28 15:00 | CP.PCM.PN ---
Subjective - Date & Time of Evaluation Date of Evaluation: 10/28/16 Time of Evaluation: 14:58 - Subjective Subjective: more alert,awake.itchy all over Objective - Vital Signs/Intake and Output Vital Signs (last 24 hours): Temp Pulse Resp BP Pulse Ox 97.4 F L 76 22 137/57 L 96 10/28/16 09:35 10/28/16 09:35 10/28/16 09:35 10/28/16 09:35 10/28/16 09:35 Intake and Output: 10/28/16 10/28/16 06:59 18:59 Intake Total 550 Output Total 650 Balance -100 - Medications Medications: Current Medications Albuterol/Ipratropium (Duoneb 3 Mg/0.5 Mg (3 Ml) Ud) 3 ml INH RQ6 [facility] Last Admin: 10/28/16 07:52 Dose: 3 ml Budesonide (Pulmicort Respules) 0.5 mg INH RQ12 [facility] Last Admin: 10/28/16 07:52 Dose: 0.5 mg Diltiazem HCl (Cardizem) 60 mg GT QID [facility] Last Admin: 10/28/16 13:21 Dose: 60 mg Famotidine (Pepcid) 20 mg PO DAILY [facility] Last Admin: 10/28/16 09:47 Dose: 20 mg Hypromellose (Tears Naturale Forte) 2 ml OU BID [facility] Potassium Chloride (K-Dur 20 Meq Er Tab) 20 meq PO BID [facility] Last Admin: 10/28/16 09:47 Dose: 20 meq Rosuvastatin Calcium (Crestor) 10 mg PO HS [facility] Last Admin: 10/27/16 21:22 Dose: 10 mg - Labs Labs: 10/27/16 06:08 10/28/16 06:45 PT 13.8 SECONDS (9.7-12.2) H 10/22/16 05:45 INR 1.2 10/22/16 05:45 APTT 34 SECONDS (21-34) 10/22/16 05:45 - Constitutional Appears: Chronically Ill - Head Exam Head Exam: NORMOCEPHALIC - Neck Exam Neck Exam: Normal Inspection - Respiratory Exam Respiratory Exam: NORMAL BREATHING PATTERN - Cardiovascular Exam Cardiovascular Exam: REGULAR RHYTHM - GI/Abdominal Exam GI & Abdominal Exam: Soft - Neurological Exam Neurological Exam: Alert Assessment and Plan - Assessment and Plan (Free Text) Assessment: more alert.ct same rx.rehab.
[2016-10-28] MEDS: Tears Naturale Forte (15ml) OU SCH (17:45)
--- NOTE | 2016-10-28 21:24 | PN ---
DATE: 10/28/2016 The patient is located in room 663, bed B. REQUESTED BY: Dr. Gianni Pace. REASON FOR FOLLOWUP: Hyponatremia, electrolyte imbalance and acute renal failure. HISTORY OF PRESENT ILLNESS: The patient is an 86-year-old elderly female with a history of COPD and AFib, status post thoracentesis, status post extubation x 2, was transferred out from the ICU. The p atient is more alert, awake, following commands appropriately, not in acute distress. Denies any anyi st pain, palpitation. Denies any fever or cough. No abdominal pain, no nausea, vomiting. The patie nt has a rectal tube with liquid stool greenish. PHYSICAL EXAMINATION: VITAL SIGNS: As follows, blood pressure this morning 137/57, pulse 76, respirations 22, temperature 97.4, saturation 96%, height 5 feet 2 inches and weight is 146 pounds. GENERAL: The patient is an 86-year-old elderly female, well built, well nourished, not in distress. HEENT: Pupils normal, reactive to light and accommodation. Conjunctivae pink. Sclerae anicteric. Tongue is moist. NECK: Trachea is midline. LUNGS: Symmetric on both sides. Bilateral breath sounds present. No crackles. CARDIOVASCULAR: [place] in the fifth intercostal space midclavicular line. S1 and S2 audible. No murm ur or gallop. ABDOMEN: Normal in appearance, soft, tympanic. No guarding, no rigidity. No hepatosplenomegaly. CENTRAL NERVOUS SYSTEM: The patient is alert, awake, oriented x 3, nonfocal on examination. Cranial nerves II through XII grossly intact. Sensory and motor system is within normal limits. EXTREMITIES: No cyanosis, no clubbing, no edema. CURRENT MEDICATIONS: Include as follows, diphenhydramine 25 mg p.o. q. 6 hours, Cardizem 60 mg q.i.d ., Crestor 10 mg at bedtime, DuoNeb inhaler 3 mL q. 6 hours, KCl 20 mEq p.o. b.i.d., famotidine 20 mg p.o. daily, Pulmicort 0.5 mg inhaler q. 12 hours. LABORATORY DATA: Include as follows: As of 10/27/2016, WBC 5.4, hemoglobin 8.9, hematocrit is 26.8, platelets 200, neutrophils 67, bands 6 and lymphocytes 13, monocytes 13, and myelocytes 1. As of , sodium 147, potassium 3.9, chloride is 116, CO2 of 18, BUN 43, creatinine 2.9, glucose 96, calcium 7.9. As of 10/27/2016, total protein 4.6, albumin is 2.2. As of 10/22/2016, MRSA screening was negative. As of 10/20/2016, stool culture no Salmonella, Shigella, campylobacter . Stool f or leukocytes were negative as of 10/20/2016. Stool for C. diff toxin was negative as of 10/10/2016. SUMMARY: The patient is an 86-year-old elderly female with a history of COPD, AFib, status post extu bation x 2 with increased BUN and creatinine and increased sodium. 1. Hyponatremia secondary to intravascular volume depletion. The serum sodium is slowly improving. I encouraged p.o. fluid intake. 2. Acute renal failure. 3. Metabolic acidosis, most likely secondary to GI loss. Continue to increase p.o. fluid intake and we will repeat urine electrolytes to check urine anion gap. Continue potassium supplement. We will follow with you. Thank you for allowing me to participate in your patient's care. Check BMP in a.m. Ann Garzon MD cc: [id number] TT: 10/28/2016 21:23:21 Confirmation # [id number] Dictation # [id number] mn
[2016-10-29] MEDS: Albuterol-Ipratrop 3 mg / 0.5 (3 ml) UD INH SCH ×2 (02:19→09:55)
[2016-10-29 07:51] LABS: POTASSIUM 4.1 mmol/L (3.6-5.2)
[2016-10-29 07:55] LABS: CALCIUM 7.9 mg/dl (8.6-10.4); MAGNESIUM 1.9 mg/dL (1.6-2.3)
--- NOTE | 2016-10-29 08:48 | CP.PCM.PN ---
Subjective - Date & Time of Evaluation Date of Evaluation: 10/29/16 Time of Evaluation: 08:46 - Subjective Subjective: F/U anemia, ileus, nutrition Pt seen with Rn present. Denies CP, SOB, fever, chills, SZ, [place] cough ,hemoptysis, hematuria. More alert Objective - Vital Signs/Intake and Output Vital Signs (last 24 hours): Temp Pulse Resp BP Pulse Ox 97.5 F L 78 21 156/70 H 95 10/29/16 07:54 10/29/16 07:54 10/29/16 07:54 10/29/16 07:54 10/29/16 07:54 Intake and Output: 10/29/16 10/29/16 06:59 18:59 Intake Total 120 Output Total 700 Balance -580 - Medications Medications: Current Medications Albuterol/Ipratropium (Duoneb 3 Mg/0.5 Mg (3 Ml) Ud) 3 ml INH RQ6 [facility] Last Admin: 10/29/16 02:19 Dose: 3 ml Budesonide (Pulmicort Respules) 0.5 mg INH RQ12 [facility] Last Admin: 10/28/16 19:46 Dose: Not Given Diltiazem HCl (Cardizem) 60 mg GT QID [facility] Last Admin: 10/28/16 21:00 Dose: 60 mg Diphenhydramine HCl (Benadryl) 25 mg PO Q6 [facility] Last Admin: 10/29/16 06:08 Dose: 25 mg Famotidine (Pepcid) 20 mg PO DAILY [facility] Last Admin: 10/28/16 09:47 Dose: 20 mg Hypromellose (Tears Naturale Forte) 2 ml OU BID [facility] Last Admin: 10/28/16 17:45 Dose: 1 drop Potassium Chloride (K-Dur 20 Meq Er Tab) 20 meq PO BID [facility] Last Admin: 10/28/16 17:44 Dose: 20 meq Rosuvastatin Calcium (Crestor) 10 mg PO HS [facility] Last Admin: 10/28/16 21:00 Dose: 10 mg - Labs Labs: 10/27/16 06:08 10/29/16 07:18 PT 13.8 SECONDS (9.7-12.2) H 10/22/16 05:45 INR 1.2 10/22/16 05:45 APTT 34 SECONDS (21-34) 10/22/16 05:45 - Constitutional Appears: Non-toxic - Neck Exam Neck Exam: absent: Tenderness - Respiratory Exam Respiratory Exam: Clear to Ausculation Bilateral - Cardiovascular Exam Cardiovascular Exam: RRR - GI/Abdominal Exam GI & Abdominal Exam: Soft, Normal Bowel Sounds. absent: Tenderness - Extremities Exam Extremities Exam: Pedal Edema - Neurological Exam Neurological Exam: Alert, Awake. absent: Oriented x3 Assessment and Plan (1) Respiratory failure Assessment & Plan: Improving. Status: Chronic (2) Abdominal distension Assessment & Plan: Less distended. F/U KUB Status: Acute (3) Acute SD Status: Acute (4) Atrial fibrillation Status: Acute (5) Dysphagia Assessment & Plan: encourage p.o. intake. Status: Acute (6) Hypernatremia Status: Acute (7) Leucocytosis Status: Acute (8) Anemia Assessment & Plan: check Hb Status: Acute (9) Acute renal insufficiency Status: Acute
[2016-10-29] MEDS: Budesonide 0.5 mg/2 ml Inhal Susp UD INH SCH ×2 (09:56→19:41)
[2016-10-29] MEDS: Tears Naturale Forte (15ml) OU SCH ×2 (10:06→22:51)
--- NOTE | 2016-10-29 12:04 | CP.PCM.PN ---
Subjective - Date & Time of Evaluation Date of Evaluation: 10/29/16 Time of Evaluation: 12:02 - Subjective Subjective: weak,sob. Objective - Vital Signs/Intake and Output Vital Signs (last 24 hours): Temp Pulse Resp BP Pulse Ox 98.8 F 100 H 24 162/81 H 98 10/29/16 10:07 10/29/16 10:07 10/29/16 10:07 10/29/16 10:07 10/29/16 10:07 Intake and Output: 10/29/16 10/29/16 06:59 18:59 Intake Total 120 Output Total 700 Balance -580 - Medications Medications: Current Medications Albuterol/Ipratropium (Duoneb 3 Mg/0.5 Mg (3 Ml) Ud) 3 ml INH RQ6 [facility] Last Admin: 10/29/16 09:55 Dose: 3 ml Budesonide (Pulmicort Respules) 0.5 mg INH RQ12 [facility] Last Admin: 10/29/16 09:56 Dose: 0.5 mg Diltiazem HCl (Cardizem) 60 mg GT QID [facility] Last Admin: 10/29/16 10:05 Dose: 60 mg Diphenhydramine HCl (Benadryl) 25 mg PO Q6 [facility] Last Admin: 10/29/16 06:08 Dose: 25 mg Famotidine (Pepcid) 20 mg PO DAILY [facility] Last Admin: 10/29/16 10:06 Dose: 20 mg Hypromellose (Tears Naturale Forte) 2 ml OU BID [facility] Last Admin: 10/29/16 10:06 Dose: 2 drop Potassium Chloride (K-Dur 20 Meq Er Tab) 20 meq PO BID [facility] Last Admin: 10/28/16 17:44 Dose: 20 meq Rosuvastatin Calcium (Crestor) 10 mg PO HS [facility] Last Admin: 10/28/16 21:00 Dose: 10 mg - Labs Labs: 10/27/16 06:08 10/29/16 07:18 PT 13.8 SECONDS (9.7-12.2) H 10/22/16 05:45 INR 1.2 10/22/16 05:45 APTT 34 SECONDS (21-34) 10/22/16 05:45 - Constitutional Appears: Chronically Ill - Head Exam Head Exam: NORMOCEPHALIC - Neck Exam Neck Exam: Normal Inspection - Respiratory Exam Respiratory Exam: Clear to Ausculation Bilateral - Cardiovascular Exam Cardiovascular Exam: REGULAR RHYTHM - GI/Abdominal Exam GI & Abdominal Exam: Soft - Neurological Exam Neurological Exam: Alert, Oriented x3 Assessment and Plan - Assessment and Plan (Free Text) Assessment: poor po intake.needs peg.o2 2 liters.po glucerna.rehab
[2016-10-29] MEDS: Potassium Chloride 20 mEq ER Tab PO SCH ×2 (12:13→23:04)
--- NOTE | 2016-10-29 15:59 | RAD ---
HISTORY: ileus COMPARISON: 10/20/2016. FINDINGS: BOWEL: Normal. No obstruction. No free air. BONES: Normal. OTHER FINDINGS: Calcified uterine fibroids. Incompletely visualize consolidative changes at the lung bases particularly left lower lobe. Associated left pleural effusion. IMPRESSION: No significant interval change compared to the prior examination(s).
--- NOTE | 2016-10-29 19:52 | CP.PCM.PN ---
Subjective - Date & Time of Evaluation Date of Evaluation: 10/29/16 Time of Evaluation: 19:51 - Subjective Subjective: pt seen and examined, follow up consult is dictated #[id number] Objective - Vital Signs/Intake and Output Vital Signs (last 24 hours): Temp Pulse Resp BP Pulse Ox 97.6 F 88 20 147/68 95 10/29/16 16:00 10/29/16 16:00 10/29/16 16:00 10/29/16 16:00 10/29/16 16:00 Intake and Output: 10/29/16 10/30/16 18:59 06:59 Intake Total 620 Output Total 1300 Balance -680 - Medications Medications: Current Medications Budesonide (Pulmicort Respules) 0.5 mg INH RQ12 [facility] Last Admin: 10/29/16 19:41 Dose: 0.5 mg Diltiazem HCl (Cardizem) 60 mg GT QID [facility] Last Admin: 10/29/16 14:32 Dose: 60 mg Diphenhydramine HCl (Benadryl) 25 mg PO Q6 [facility] Last Admin: 10/29/16 12:28 Dose: 25 mg Famotidine (Pepcid) 20 mg PO DAILY [facility] Last Admin: 10/29/16 10:06 Dose: 20 mg Hypromellose (Tears Naturale Forte) 2 ml OU BID [facility] Last Admin: 10/29/16 10:06 Dose: 2 drop Potassium Chloride (K-Dur 20 Meq Er Tab) 20 meq PO BID [facility] Last Admin: 10/29/16 12:13 Dose: Not Given Rosuvastatin Calcium (Crestor) 10 mg PO HS [facility] Last Admin: 10/28/16 21:00 Dose: 10 mg - Labs Labs: 10/27/16 06:08 10/29/16 07:18 PT 13.8 SECONDS (9.7-12.2) H 10/22/16 05:45 INR 1.2 10/22/16 05:45 APTT 34 SECONDS (21-34) 10/22/16 05:45
--- NOTE | 2016-10-29 21:07 | PN ---
DATE: 10/29/2016 The patient is located in room 554 B. REQUESTED BY: Dr. Gianni Pace. REASON FOR FOLLOWUP: Increased BUN and creatinine, acute renal failure, hypernatremia. HISTORY OF PRESENT ILLNESS: The patient is an 86-year-old elderly female with a history of smoking, COPD, AFib, status post extubation x 2 with acute renal failure. The patient is slightly drowsy today, on high flow nebulizer . Opens eyes to verbal stimuli, not in acute distress and denies any complaints. PHYSICAL EXAMINATION: VITAL SIGNS: Blood pressure 147/68, pulse 88, respirations 20, temperature 97.6 , saturation 95%, height 5 feet 2 inches and weight is 146 pounds. GENERAL: The patient is an 86-year-old elderly female, moderately built, moderately nourished, not in distress. HEENT: Pupils normal, reactive to light and accommodation. Conjunctivae pink. Sclerae anicteric. LUNGS: Symmetric on both sides. Bilateral breath sounds present. Occasional basal crackles present. CARDIOVASCULAR: [place] in the fifth intercostal space midclavicular line. S1 and S2 audible. No murmur or gallop. ABDOMEN: Normal in appearance, soft, tympanic. No guarding, no rigidity. No hepatosplenomegaly. CENTRAL NERVOUS SYSTEM: The patient is drowsy, arousable, responding appropriately. EXTREMITIES: No cyanosis, no clubbing, no edema. CURRENT MEDICATIONS: Include as follows, diphenhydramine 25 mg p.o. q. 6 hours , diltiazem 60 mg q.i.d., Crestor 10 mg daily, KCl 20 mEq p.o. b.i.d., famotidine 20 mg p.o. daily, Pulmicort 0.5 mg inhaler q. 12 hours. LABORATORY DATA: As of 10/29/2016, sodium 146, potassium 4.1, chloride 115, CO2 of 19, BUN 39, creatinine 2.9, glucose 77, calcium 7.9, magnesium 1.9. Abdominal x-ray, no significant interval change compared to the prior examination, incompletely visualized, consolidative changes in the lung bases, particularly left lower lobe, associated left pleural effusion. SUMMARY: The patient is an 86-year-old elderly female with a history of chronic obstructive pulmonary disease, atrial fibrillation, status post extubation, left pleural effusion, increased BUN and creatinine and increased sodium and low potassium. 1. Hypernatremia secondary to intravascular volume depletion. Serum sodium is slowly improving, increase p.o. fluids. 2. Nonoliguric acute renal failure, cannot rule out acute tubular necrosis at this time. 3. Chronic obstructive pulmonary disease, most likely secondary to chronic smoking. Continue to monitor BMP and increase p.o. fluids. We will follow with you. Thank you for allowing me to participate in your patient's care. Overall prognosis is very poor. The patient is a DNR/DNI. Ann Garzon MD cc: [id number] TT: 10/29/2016 21:07:47 Confirmation # [id number] Dictation # [id number] verena BARON
[2016-10-30 07:38] LABS: POTASSIUM 4.1 mmol/L (3.6-5.2)
[2016-10-30 07:41] LABS: CALCIUM 7.7 mg/dl (8.6-10.4)
[2016-10-30] MEDS: Budesonide 0.5 mg/2 ml Inhal Susp UD INH SCH ×2 (08:26→19:06)
[2016-10-30] MEDS: Potassium Chloride 20 mEq ER Tab PO SCH ×2 (09:57→18:12)
[2016-10-30] MEDS: Tears Naturale Forte (15ml) OU SCH ×2 (10:00→18:16)
[2016-10-30 10:13] LABS: CHLORIDE URINE 114 mmol/L (32-290)
--- NOTE | 2016-10-30 11:46 | CP.PCM.PN ---
Subjective - Date & Time of Evaluation Date of Evaluation: 10/30/16 Time of Evaluation: 11:43 - Subjective Subjective: CC; follow up- failure to thrive Poor PO intake Lethargic, arousable. Objective - Vital Signs/Intake and Output Vital Signs (last 24 hours): Temp Pulse Resp BP Pulse Ox 98 F 82 20 169/72 H 97 10/30/16 08:00 10/30/16 08:00 10/30/16 08:00 10/30/16 08:00 10/30/16 08:00 Intake and Output: 10/30/16 10/30/16 06:59 18:59 Intake Total 240 Output Total 450 Balance -210 - Medications Medications: Current Medications Budesonide (Pulmicort Respules) 0.5 mg INH RQ12 [facility] Last Admin: 10/30/16 08:26 Dose: 0.5 mg Diltiazem HCl (Cardizem) 60 mg GT QID [facility] Last Admin: 10/30/16 10:00 Dose: 60 mg Diphenhydramine HCl (Benadryl) 25 mg PO Q6 [facility] Last Admin: 10/30/16 06:48 Dose: 25 mg Famotidine (Pepcid) 20 mg PO DAILY [facility] Last Admin: 10/30/16 09:57 Dose: 20 mg Hypromellose (Tears Naturale Forte) 2 ml OU BID [facility] Last Admin: 10/30/16 10:00 Dose: 2 drop Potassium Chloride (K-Dur 20 Meq Er Tab) 20 meq PO BID [facility] Last Admin: 10/30/16 09:57 Dose: 20 meq Rosuvastatin Calcium (Crestor) 10 mg PO HS [facility] Last Admin: 10/29/16 23:04 Dose: 10 mg - Labs Labs: 10/27/16 06:08 10/30/16 06:48 PT 13.8 SECONDS (9.7-12.2) H 10/22/16 05:45 INR 1.2 10/22/16 05:45 APTT 34 SECONDS (21-34) 10/22/16 05:45 - Constitutional Appears: No Acute Distress - Head Exam Head Exam: NORMOCEPHALIC - Eye Exam Eye Exam: absent: Scleral icterus - Respiratory Exam Respiratory Exam: Clear to Ausculation Bilateral - Cardiovascular Exam Cardiovascular Exam: REGULAR RHYTHM - GI/Abdominal Exam GI & Abdominal Exam: Soft. absent: Distended, Tenderness Assessment and Plan (1) Respiratory failure Assessment & Plan: Off vent. Appears confortable Status: Chronic (2) Abdominal distension Assessment & Plan: resolved Status: Acute (3) Confusion Assessment & Plan: lethargic but arousable. PEG would be high risk for pulmonary failure during the procedure or perioperatively. Discussed with Dr Pace- Due to high risk for re-intubation, will defer PEG and encourage oral intake. NG feeds is also an option. Status: Acute (4) Anemia Assessment & Plan: Stable Status: Chronic
--- NOTE | 2016-10-30 12:02 | CP.PCM.PN ---
Subjective - Date & Time of Evaluation Date of Evaluation: 10/30/16 Time of Evaluation: 12:00 - Subjective Subjective: lethargic at times.poor po intake. Objective - Vital Signs/Intake and Output Vital Signs (last 24 hours): Temp Pulse Resp BP Pulse Ox 98 F 82 20 169/72 H 97 10/30/16 08:00 10/30/16 08:00 10/30/16 08:00 10/30/16 08:00 10/30/16 08:00 Intake and Output: 10/30/16 10/30/16 06:59 18:59 Intake Total 240 Output Total 450 Balance -210 - Medications Medications: Current Medications Budesonide (Pulmicort Respules) 0.5 mg INH RQ12 [facility] Last Admin: 10/30/16 08:26 Dose: 0.5 mg Diltiazem HCl (Cardizem) 60 mg GT QID [facility] Last Admin: 10/30/16 10:00 Dose: 60 mg Diphenhydramine HCl (Benadryl) 25 mg PO Q6 [facility] Last Admin: 10/30/16 06:48 Dose: 25 mg Famotidine (Pepcid) 20 mg PO DAILY [facility] Last Admin: 10/30/16 09:57 Dose: 20 mg Hypromellose (Tears Naturale Forte) 2 ml OU BID [facility] Last Admin: 10/30/16 10:00 Dose: 2 drop Potassium Chloride (K-Dur 20 Meq Er Tab) 20 meq PO BID [facility] Last Admin: 10/30/16 09:57 Dose: 20 meq Rosuvastatin Calcium (Crestor) 10 mg PO HS [facility] Last Admin: 10/29/16 23:04 Dose: 10 mg - Labs Labs: 10/27/16 06:08 10/30/16 06:48 PT 13.8 SECONDS (9.7-12.2) H 10/22/16 05:45 INR 1.2 10/22/16 05:45 APTT 34 SECONDS (21-34) 10/22/16 05:45 - Constitutional Appears: No Acute Distress, Chronically Ill - Eye Exam Eye Exam: Normal appearance - Neck Exam Neck Exam: Normal Inspection - Respiratory Exam Respiratory Exam: Rhonchi - Cardiovascular Exam Cardiovascular Exam: REGULAR RHYTHM - GI/Abdominal Exam GI & Abdominal Exam: Soft Assessment and Plan - Assessment and Plan (Free Text) Assessment: severe copd,poor po intake.ckd. diss with gi md & dr andrews. high risk even for peg.may need intubation for procedure. will ct encourage po intake. [facility].
--- NOTE | 2016-10-30 17:56 | CP.PCM.PN ---
Subjective - Date & Time of Evaluation Date of Evaluation: 10/30/16 Time of Evaluation: 17:56 - Subjective Subjective: pt seen and examined, follow up consult is dictated #[id number] Objective - Vital Signs/Intake and Output Vital Signs (last 24 hours): Temp Pulse Resp BP Pulse Ox 98.0 F 72 20 150/88 96 10/30/16 16:00 10/30/16 16:00 10/30/16 16:00 10/30/16 16:00 10/30/16 16:00 Intake and Output: 10/30/16 10/30/16 06:59 18:59 Intake Total 240 Output Total 850 Balance -610 - Medications Medications: Current Medications Budesonide (Pulmicort Respules) 0.5 mg INH RQ12 [facility] Last Admin: 10/30/16 08:26 Dose: 0.5 mg Diltiazem HCl (Cardizem) 60 mg GT QID [facility] Last Admin: 10/30/16 14:33 Dose: 60 mg Diphenhydramine HCl (Benadryl) 25 mg PO Q6 [facility] Last Admin: 10/30/16 12:28 Dose: 25 mg Famotidine (Pepcid) 20 mg PO DAILY [facility] Last Admin: 10/30/16 09:57 Dose: 20 mg Hypromellose (Tears Naturale Forte) 2 ml OU BID [facility] Last Admin: 10/30/16 10:00 Dose: 2 drop Potassium Chloride (K-Dur 20 Meq Er Tab) 20 meq PO BID [facility] Last Admin: 10/30/16 09:57 Dose: 20 meq Rosuvastatin Calcium (Crestor) 10 mg PO HS [facility] Last Admin: 10/29/16 23:04 Dose: 10 mg - Labs Labs: 10/27/16 06:08 10/30/16 06:48 PT 13.8 SECONDS (9.7-12.2) H 10/22/16 05:45 INR 1.2 10/22/16 05:45 APTT 34 SECONDS (21-34) 10/22/16 05:45
[2016-10-30] MEDS: Albuterol-Ipratrop 3 mg / 0.5 (3 ml) UD INH SCH (19:07)
--- NOTE | 2016-10-30 22:32 | PN ---
DATE: 10/30/2016 The patient is located in room 368, bed A. REQUESTED BY: Dr. Gianni Pace. REASON FOR FOLLOWUP: Acute renal failure, hypernatremia. The patient is an 86-year-old elderly female with a past medical history significant for COPD, smoker, AFib status post intubation and extubation x 2, with acute renal failure, and hyponatremia. The patient is drowsy, arousable, and responds to simple commands. Not in distress. The patient is less cooperative today. VITAL SIGNS AND PHYSICAL EXAMINATION: As follows: Blood pressure 150/88, pulse 72, respirations 20, temperature 98, saturation 96% . Height 5 feet 2 inches, and weight is 146 pounds. HENT AND PHYSICAL EXAMINATION: The patient is an 86-year-old elderly female, moderately built, moderately nourished, not in any distress. HENT: Pupils normal, reactive to light and accommodation. Conjunctivae pink, sclerae anicteric. Tongue is slightly dry. LUNGS: Symmetric on both sides. Bilateral breath sounds present. Occasional basal crackles present on the left side. CARDIOVASCULAR SYSTEM: S1 and S2 audible. No murmur or gallop. ABDOMEN: Normal in appearance, soft, tympanic. No guarding, no rigidity. No hepatosplenomegaly. CENTRAL NERVOUS SYSTEM: The patient is drowsy, arousable, following simple commands. EXTREMITIES: No cyanosis, no clubbing, no edema. CURRENT MEDICATIONS: Include as follows: Diphenhydramine 25 mg p.o. q. 6 hours , and Cardizem 60 mg q.i.d., and Crestor 10 mg at bedtime, KCl 20 mEq p.o. b.i.d., and famotidine 20 mg p.o. daily, Pulmicort 0.5 mg q. 12 hours. LABORATORY DATA: Include as follows as of 10/30/2016: Sodium 147, potassium 4.1, chloride 114, CO2 of 21, BUN 38, creatinine 2.9, glucose 96, and calcium 7.7. As of 10/29/2016: Urine sodium is 98, urine chloride is 114. In summary, the patient is an 86-year-old elderly female with chronic obstructive pulmonary disease, AFib, smoker, status post extubation x 2, with increased BUN and creatinine and increased serum sodium. 1. Nonoliguric acute renal failure, most likely secondary to prerenal. Cannot rule out acute tubular necrosis. 2. Mild hypernatremia secondary to intravascular depletion. 3. Hyperchloremic metabolic acidosis, most likely due to gastrointestinal loss. 4. Hypernatremia, sec to intravascular volume depletion PLAN: Consider IV fluids D5W at 50-60 ml/hr. Will follow with you. Thank you for allowing me to participate in your patient's care. Ann Garzon MD cc: [phone] TT: 10/30/2016 22:31:45 Confirmation # [id number] Dictation # [id number] jn MTDD
[2016-10-31 09:30] VITALS: BP 175/82; PULSE 87; RESP 18; TEMP 97.6; O2SAT 94
--- NOTE | 2016-10-31 11:19 | CP.PCM.CON ---
History of Present Illness - History of Present Illness History of Present Illness: Palliative consult requested by Mary OROPEZA Reason: Poor prognosis Patient is a 86 yo female admitted with AMS due to hypercapnia, PCO2 80%. Patient was intubated in ED and her symptoms resolved. However, patient needed MV support for respiratory failure, and was later successfully extubated. Patient was sent to the floor where she does poorly. Last night the hospice eval was ordered by the PMD. Palliative care was called to assist with the process. PMH: COPD, HTN, hypothyroid, ex smoker Soc. Hx: single Fam. Hx: umknowm Review of Systems - Review of Systems Systems not reviewed;Unavailable: Altered Mental Status Past Patient History - Past Medical History & Family History Past Medical History?: No - Past Social History Smoking Status: Current Some Days Smoker - CARDIAC Hx Cardiac Disorders: Yes Hx Hypertension: Yes - PULMONARY Hx Chronic Obstructive Pulmonary Disease (COPD): Yes - ENDOCRINE/METABOLIC Hx Hypothyroidism: Yes - MUSCULOSKELETAL/RHEUMATOLOGICAL Hx Falls: No (unknown) - GENITOURINARY/GYNECOLOGICAL Hx Genitourinary Disorders: (UNKNOWN) - PSYCHIATRIC Hx Substance Use: Yes - SURGICAL HISTORY Hx Surgeries: No (UNOBTAINABLE) - ANESTHESIA Hx Anesthesia: No Hx Anesthesia Reactions: No Hx Malignant Hyperthermia: No Has any member of the family had a problem w/ anesthesia?: No Meds Allergies/Adverse Reactions: Allergies Allergy/AdvReac Type Severity Reaction Status Date / Time No Known Allergies Allergy Verified 09/24/16 15:06 - Medications Medications: Current Medications Diltiazem HCl (Cardizem) 60 mg GT QID [facility] Last Admin: 10/30/16 18:15 Dose: Not Given Diphenhydramine HCl (Benadryl) 25 mg PO Q6 [facility] Last Admin: 10/31/16 06:00 Dose: Not Given Famotidine (Pepcid) 20 mg PO DAILY [facility] Last Admin: 10/30/16 09:57 Dose: 20 mg Hypromellose (Tears Naturale Forte) 2 ml OU BID [facility] Last Admin: 10/30/16 18:16 Dose: 2 drop Dextrose (Dextrose 5% In Water 1000 Ml) 1,000 mls @ 50 mls/hr IV .Q20H [facility] Potassium Chloride (K-Dur 20 Meq Er Tab) 20 meq PO BID [facility] Last Admin: 10/30/16 09:57 Dose: 20 meq Rosuvastatin Calcium (Crestor) 10 mg PO HS [facility] Last Admin: 10/29/16 23:04 Dose: 10 mg Physical Exam - Constitutional Appears: Chronically Ill - Head Exam Head Exam: ATRAUMATIC - Eye Exam Eye Exam: Normal appearance Pupil Exam: NORMAL ACCOMODATION - ENT Exam ENT Exam: Mucous Membranes Dry - Neck Exam Neck exam: Positive for: Normal Inspection - Respiratory Exam Additional comments: decreased breath sounds - Cardiovascular Exam Cardiovascular Exam: Tachycardia - GI/Abdominal Exam Additional comments: rectal pouch - Rectal Exam Rectal Exam: Deferred - Exam Additional comments: Antony cath - Extremities Exam Extremities exam: Positive for: normal inspection - Back Exam Back exam: NORMAL INSPECTION - Neurological Exam Neurological exam: Alert, Altered - Psychiatric Exam Psychiatric exam: Depressed - Skin Skin Exam: Pallor Results - Vital Signs Recent Vital Signs: Last Vital Signs Temp 97.6 F 10/31/16 07:00 Pulse 87 10/31/16 07:00 Resp 18 10/31/16 07:00 BP 175/82 H 10/31/16 07:00 Pulse Ox 94 L 10/31/16 07:00 - Labs Result Diagrams: 10/27/16 06:08 10/30/16 06:48 Assessment & Plan - Assessment and Plan (Free Text) Assessment: Code status DNR/DNI, POLST on chart. PPS 20%. ROS unobtainable due to condition. I reviewed medical records, all diagnostic studies and examined patient in the bed. Interview was limited due to AMS. Patient was discussed with Mary TELEPH[employer] STATION REPAIRER and SS. Patient's brother Mr. Anthony Mccartney ( [phone]) was not reachable on the phone. Patient is alert and altered. Patient states " I am disgusted". Patient was not able to elaborate on the meaning of it. Patient looks ill, skin is pale, Hb 8.9. Patient repeatedly asked to be sent home. When asked where her home was or whom she lived with, patient unable to answer. Breath sound are diminished with mild occasional wheezing. The latest CXR was significant for worsening infiltrate. O2 Sat 94 % NC. Antony at bed side, urine concentrated, rectal pouch in place, stool green liquid. BUN 38, Maintenance Custodian 2.9, Ca 7.7 , Alb 2.2. Poor PO intake. D 50% at 50 cc on board. There is a decreased ROM to lower extremities due to prolonged bed rest. Soft boots are on. Patient takes Benadryl 25 mg PO Q 6hr. Hospice eval was ordered by PMD last night. Impression * This is very sick patient with significantly decreased quality of life * Patient is alert enough to suggest that she felt miserable and suffering * Patient is helpless in the way that is not able to fully advocate for her self * Patient's brother was not available for goals of care discussion * Patient is at risk for malnutrition and dehydration due to poor PO intake * Patient is at risk for pressure sores due to limited mobility and malnutrition Suggestion * I feel that this patient should be provided comfort and allowed natural * Would offer pleasure food as tolerated * Please consider removing rectal pouch for increased comfort and dignity of the patient * Would discontinue Benadryl, risk for sedation * Agree with Hospice care Thank you very much for consulting Palliative care.
[2016-10-31] MEDS: Tears Naturale Forte (15ml) OU SCH (11:27)
[2016-10-31] MEDS: Potassium Chloride 20 mEq ER Tab PO SCH ×3 (11:27→18:02)
--- NOTE | 2016-10-31 17:01 | CP.PCM.PN ---
Subjective - Date & Time of Evaluation Date of Evaluation: 10/31/16 Time of Evaluation: 17:01 - Subjective Subjective: Awake, alert, NAD. On 2 liter oxygen via nasal canula. Objective - Vital Signs/Intake and Output Vital Signs (last 24 hours): Temp Pulse Resp BP Pulse Ox 97.6 F 87 18 175/82 H 94 L 10/31/16 07:00 10/31/16 07:00 10/31/16 07:00 10/31/16 07:00 10/31/16 07:00 Intake and Output: 10/31/16 10/31/16 06:59 18:59 Intake Total 150 150 Output Total 400 Balance -250 150 - Medications Medications: Current Medications Diltiazem HCl (Cardizem) 60 mg GT QID [facility] Last Admin: 10/31/16 14:16 Dose: 60 mg Diphenhydramine HCl (Benadryl) 25 mg PO Q6 [facility] Last Admin: 10/31/16 12:52 Dose: Not Given Famotidine (Pepcid) 20 mg PO DAILY [facility] Last Admin: 10/31/16 11:26 Dose: 20 mg Hypromellose (Tears Naturale Forte) 2 ml OU BID [facility] Last Admin: 10/31/16 11:27 Dose: 1 drop Dextrose (Dextrose 5% In Water 1000 Ml) 1,000 mls @ 50 mls/hr IV .Q20H [facility] Potassium Chloride (K-Dur 20 Meq Er Tab) 20 meq PO BID [facility] Last Admin: 10/31/16 11:27 Dose: 20 meq Rosuvastatin Calcium (Crestor) 10 mg PO HS [facility] Last Admin: 10/29/16 23:04 Dose: 10 mg - Labs Labs: 10/27/16 06:08 10/30/16 06:48 PT 13.8 SECONDS (9.7-12.2) H 10/22/16 05:45 INR 1.2 10/22/16 05:45 APTT 34 SECONDS (21-34) 10/22/16 05:45 Assessment and Plan - Assessment and Plan (Free Text) Assessment: Patient seen and examined. Awake, responsive, follows commands. Has multiple medical issues, poor eater, not a candidate for PEG. Got bed at [facility]. D/W DR Gianni Pace, discharge plan for today. Left message with family. No acute distress, code status DNR, DNI. Rectal tube is discontinued. Antony is draining well.
--- NOTE | 2016-10-31 19:07 | CP.PCM.PN ---
Subjective - Date & Time of Evaluation Date of Evaluation: 10/31/16 Time of Evaluation: 19:07 - Subjective Subjective: pt seenand examined, follow up consult is dictated#[id number] Objective - Vital Signs/Intake and Output Vital Signs (last 24 hours): Temp Pulse Resp BP Pulse Ox 97.6 F 87 18 175/82 H 94 L 10/31/16 07:00 10/31/16 07:00 10/31/16 07:00 10/31/16 07:00 10/31/16 07:00 Intake and Output: 10/31/16 11/01/16 18:59 06:59 Intake Total 150 Balance 150 - Medications Medications: Current Medications Diltiazem HCl (Cardizem) 60 mg GT QID [facility] Last Admin: 10/31/16 17:59 Dose: 60 mg Diphenhydramine HCl (Benadryl) 25 mg PO Q6 [facility] Last Admin: 10/31/16 17:59 Dose: Not Given Famotidine (Pepcid) 20 mg PO DAILY [facility] Last Admin: 10/31/16 11:26 Dose: 20 mg Hypromellose (Tears Naturale Forte) 2 ml OU BID [facility] Last Admin: 10/31/16 11:27 Dose: 1 drop Dextrose (Dextrose 5% In Water 1000 Ml) 1,000 mls @ 50 mls/hr IV .Q20H [facility] Last Admin: 10/31/16 18:02 Dose: Not Given Potassium Chloride (K-Dur 20 Meq Er Tab) 20 meq PO BID [facility] Last Admin: 10/31/16 18:02 Dose: 20 meq Rosuvastatin Calcium (Crestor) 10 mg PO HS [facility] Last Admin: 10/29/16 23:04 Dose: 10 mg - Labs Labs: 10/27/16 06:08 10/30/16 06:48 PT 13.8 SECONDS (9.7-12.2) H 10/22/16 05:45 INR 1.2 10/22/16 05:45 APTT 34 SECONDS (21-34) 10/22/16 05:45
[2016-10-31] MEDS ORDERED: Pneumococcal 23-Valent Vaccine IM ONE (19:09)
--- NOTE | 2016-10-31 21:07 | DS ---
The patient is being transferred to rehab today, 10/31/2016. An 86-year-old female with a history of CVA, COPD, who was admitted during my absence to ICU with acu te respiratory distress. During hospitalization she was intubated on 2-3 different occasions, and ex tubated. She had a large pleural effusion, appeared to be exudate. Pleural effusion was tapped anti biotics was given. She was closely followed in ICU and on the floor by Dr. Yo, myself, and she als o had a GI consultation and surgical consultation. She also had . The patient and the family wanted a DNR . Palliative consult was requested. Her appetite remai ns poor. She also has a chronic kidney disease. Her creatinine currently is 2.6. At this point, she is stable. Vital signs are acceptable. She is awake and alert. Her appetite is poor, but we try force p.o. fluid and she is has a pureed diet. FINAL DIAGNOSES: Acute respiratory failure, exacerbation of chronic obstructive pulmonary disease, a nemia, hypertension, and pneumonitis, chronic kidney disease. Care plan was explained to the patient's family on several occasions during hospitalization. Prognosis remains poor. She will be transferred to rehab and senior care. Gianni Pace MD cc: [id number] TT: 10/31/2016 21:06:38 jn
--- NOTE | 2016-11-01 01:31 | PN ---
DATE: 10/31/2016 The patient is located in room 368, bed A. REQUESTED BY: Dr. Gianni Pace. REASON FOR FOLLOWUP: Acute renal failure. HISTORY OF PRESENT ILLNESS: The patient is an 86-year-old elderly female with a past medical history significant for active smoker, COPD, AFib, status post extubation and intubation x 2, is being treat ed for dehydration and hypernatremia, acute renal failure. The patient is not in acute distress, dec reased p.o. intake, but denies any chest pain, palpitation. Denies any shortness of breath. PHYSICAL EXAMINATION: VITAL SIGNS: As follows: Blood pressure is 175/82, pulse 87, respiration 18, temperature 97.6, satu ration 94%, height 5 feet 2 inches. Weight is 146 pounds. GENERAL: The patient is an 86-year-old elderly female, moderately built, moderately nourished, not i n acute distress. HEENT: Pupils normal, reactive to light and accommodation. Conjunctivae pink. Sclerae anicteric. Tongue is slightly dry. NECK: Trachea is midline. LUNGS: Symmetric on both sides. Bilateral breath sounds present. Occasional basal crackles present on the left side. CARDIOVASCULAR: [place] in the fifth intercostal space midclavicular line. S1 and S2 audible. No murm ur or gallop. ABDOMEN: Normal in appearance, soft, tympanitic. No guarding. No rigidity. No hepatosplenomegaly. CENTRAL NERVOUS SYSTEM: Arousable, following commands appropriately. EXTREMITIES: No cyanosis. No clubbing. No edema. CURRENT MEDICATIONS: Include as follows: Benadryl 25 mg p.o. q. 6 hours, Cardizem 60 mg q.i.d., Cre stor 10 mg at bedtime. KCl 20 mEq daily, Pepcid 20 mg daily, Pulmicort 0.5 mg inhaler q. 12 hours. LABORATORY DATA: Include as follows: As of 10/30/20165 sodium 147, potassium 4.1, chloride 114, CO2 21, BUN 38, creatinine 2.9, glucose 96, calcium 7.7. SUMMARY: The patient is an 86-year-old elderly female, moderately built, moderately nourished with a history of COPD, smoker, AFib, status post extubation with high sodium and increased BUN and creatin ine. 1. Hypernatremia secondary to intravascular volume depletion secondary to decreased p.o. intake. 2. Hyperchloremic metabolic acidosis. 3. Acute renal failure, cannot rule out JACKELYN versus prerenal with a urine sodium more than 100. Prer enal is less likely. Most likely acute tubular necrosis . PLAN: 1. Increase p.o. fluids. 2. Continue to monitor BMP. 3. COPD. We will continue Pulmicort and follow with pulmonary. Overall, prognosis is very poor. Thank you for allowing me to participate in your patient's care. Ann Garzon MD cc: [id number] TT: 11/01/2016 01:30:32 Confirmation # [id number] Dictation # [id number] tn
== END 2016-10-31 21:56 | DRG 207 ==
LOC: C.ER 18:28 → C.9I 21:39 → C.6T 10-19 22:30 → C.9I 10-22 11:33 → C.6T 10-28 08:56 → C.5T 10-28 20:47 → C.3T 10-30 00:31
PROVIDERS: ADMIT Internal Medicine Cardiovascular Disease; ATTEND Internal Medicine Cardiovascular Disease
PROC: 5A1955Z Respiratory Ventilation, Greater than 96 Consecutive Hours (ICD-10-PCS; 2016-09-23)
PROC: 0BH17EZ Insertion of Endotracheal Airway into Trachea, Via Natural or Artificial Opening (ICD-10-PCS; 2016-09-23)
PROC: 2Y41X5Z Packing of Nasal Region using Packing Material (ICD-10-PCS; principal; 2016-10-06)
PROC: 0W9B3ZZ Drainage of Left Pleural Cavity, Percutaneous Approach (ICD-10-PCS; 2016-10-14)
PROC: 5A1945Z Respiratory Ventilation, 24-96 Consecutive Hours (ICD-10-PCS; 2016-10-22)
DX: J44.1 Chronic obstructive pulmonary disease with (acute) exacerbation (principal); I21.4 Non-ST elevation (NSTEMI) myocardial infarction; N17.0 Acute kidney failure with tubular necrosis; J86.9 Pyothorax without fistula; J18.9 Pneumonia, unspecified organism; G93.41 Metabolic encephalopathy; I13.0 Hypertensive heart and chronic kidney disease with heart failure and stage 1 through stage 4 chronic kidney disease, or unspecified chronic kidney disease; E87.0 Hyperosmolality and hypernatremia; I50.9 Heart failure, unspecified; J96.01 Acute respiratory failure with hypoxia; J96.02 Acute respiratory failure with hypercapnia; K56.7 Ileus, unspecified; E86.0 Dehydration; D63.8 Anemia in other chronic diseases classified elsewhere; J44.0 Chronic obstructive pulmonary disease with (acute) lower respiratory infection; N18.9 Chronic kidney disease, unspecified; Z66 Do not resuscitate; Z51.5 Encounter for palliative care; R04.0 Epistaxis; F17.210 Nicotine dependence, cigarettes, uncomplicated; E87.6 Hypokalemia; E03.9 Hypothyroidism, unspecified; N28.1 Cyst of kidney, acquired; I48.91 Unspecified atrial fibrillation; N93.9 Abnormal uterine and vaginal bleeding, unspecified; D69.6 Thrombocytopenia, unspecified; D64.9 Anemia, unspecified